=== PATIENT | female | born 1955 | race Caucasian/White ===

== ENCOUNTER 2018-09-28 15:24 | Inpatient (IN) ==
[2018-09-28] MEDS ORDERED: SODIUM CHLORIDE 0.9% 1000ML 1,000 ML IV ONE ×2 (15:58→18:17)
--- NOTE | 2018-09-28 16:29 | XRay Report ---
XR chest 1V portable CLINICAL HISTORY: 63 years-old Female presenting with fever/chills. TECHNIQUE: Portable semiupright AP view of the chest was obtained. COMPARISON: 10/23/2014. FINDINGS: Cardiac silhouette mildly enlarged with pulmonary vascular prominence. Prominence of pulmonary lung m arkings at the lung bases, most likely related to vascular prominence. No focal opacity. No pleural e ffusion or pneumothorax. Degenerative changes of the right glenohumeral joint. Upper abdomen normal. IMPRESSION: 1. Cardiomegaly with volume overload. No convincing focal infiltrate to suggest pneumonia. Prominenc e of lung markings at the lung bases, most likely vascular in etiology. Electronically signed by: Gustavo Chavez M.D. 09/28/2018 4:28 PM
--- NOTE | 2018-09-28 16:30 | XRay Report ---
XR tibia fibula RT 2V CLINICAL HISTORY: 63 years-old Female presenting with leg infection. TECHNIQUE: Frontal and lateral views of the right lower leg were obtained. COMPARISON: Correlation made to plain radiographs of the right ankle from 2014. FINDINGS: Diffuse subcutaneous edema with skin thickening. Osteopenia. Allowing for osteopenia, no focal osseou s erosion or periosteal reaction. Knee joint and ankle mortise grossly congruent. No acute fracture o r malalignment. Prominent enthesophyte at the insertion of the Achilles tendon. Os trigonum noted. No soft tissue emphysema. IMPRESSION: 1. Diffuse subcutaneous edema with skin thickening. Correlate clinically for cellulitis. Allowing fo r osteopenia, no convincing radiographic evidence of osteomyelitis. Electronically signed by: Gustavo Chavez M.D. 09/28/2018 4:29 PM
--- NOTE | 2018-09-28 16:42 | XRay Report ---
XR foot RT min 3V routine CLINICAL HISTORY: 63 years-old Female presenting with leg infection. TECHNIQUE: Frontal, oblique, and lateral views of the right foot were obtained. COMPARISON: 04/17/2014. FINDINGS: Osteopenia. Irregularity of the soft tissues along the medial aspect of the first toe may suggest lac eration or ulceration. No subjacent osseous erosion. Chronic cortical deformity at the medial aspect of the neck of the second metatarsal, unchanged from prior. Osseous fragmentation of the medial and d orsal aspects of the navicular. Prominent enthesophytes at the insertion of the Achilles tendon and o rigin of the plantar fascia. Allowing for osteopenia, no acute fracture or malalignment. Diffuse skin thickening and subcutaneous edema throughout the foot and ankle. IMPRESSION: 1. Osseous fragmentation at the medial and dorsal aspects of the navicular. This may represent small chip or avulsion fractures versus degenerative change. Correlate with point tenderness. 2. Nonspecific diffuse subcutaneous edema and skin thickening. Correlate clinically for sialitis. Th is may represent edema or venous stasis. 3. Possible laceration or ulceration at the medial aspect of the right first toe. No subjacent osseo us abnormality. 4. Allowing for osteopenia, no osseous erosion a periosteal reaction to suggest osteomyelitis. Electronically signed by: Gustavo Chavez M.D. 09/28/2018 4:41 PM
[2018-09-28 16:46] LABS: Basophils # (auto) 0.03 K/uL (0-0.2); Basophils % (auto) 0.2 %; Eosinophils # (auto) 0.05 K/uL (0-0.5); Eosinophils % (auto) 0.3 %; Hematocrit (blood only) 36.2 % (37-47); Hemoglobin 11.7 g/dL (12.0-16.0); Immature Granulocytes # (auto) 0.07 K/uL (0.00-0.02); Immature Granulocytes % (auto) 0.4 %; Lymphocytes # (auto) 1.51 K/uL (1.2-3.4); Lymphocytes % (auto) 9.2 %; Mean Corpuscular Hgb Conc 32.3 g/dL (32-36); Mean Corpuscular Volume 94.8 fL (80-100); Mean Platelet Volume 10.5 fL (7.4-10.4); Monocytes # (auto) 0.88 K/uL (0.11-0.59); Monocytes % (auto) 5.4 %; Neutrophils % (auto) 84.5 %; Platelet Count 332 K/uL (130-400); RDW Coefficient of Variation 15.9 % (11.5-14.5); RDW Standard Deviation 54.7 fL (36.4-46.3); Red Blood Count 3.82 M/uL (4.2-5.4); White Blood Count 16.34 K/uL (4.8-10.8)
[2018-09-28] MEDS ORDERED: cefTRIAXone SODIUM 1,000 MG/50 ML BAG IV STA (16:48)
[2018-09-28 16:55] LABS: INR 1.9 (0.9-1.1); Prothrombin Time 18.7 Seconds (9.0-12.0)
[2018-09-28 17:04] LABS: Alanine Aminotransferase 30 U/L (12-78); Aspartate Aminotransferase 35 U/L (15-37); BUN Creatinine Ratio 27.5 (10-20); Blood Urea Nitrogen 58 mg/dl (7-18); Calcium 9.2 mg/dl (8.5-10.1); Carbon Dioxide 22 mmol/L (21-32); Chloride 98 mmol/L (98-107); Creatinine Clr Calc Pharmacy 40.3 ml/min; Est GFR (African American) 28.2; Est GFR (Non-African American) 24.3; Glucose 195 mg/dl (70-99); Magnesium 2.8 mg/dl (1.8-2.4); Potassium 4.5 mmol/L (3.5-5.1); Sodium 132 mmol/L (136-145)
[2018-09-28 17:09] LABS: Albumin Globulin Ratio 0.6 (0.9-2); Alkaline Phosphatase 71 U/L (45-117); Bilirubin,Total 0.3 mg/dl (0.1-1); Globulin 4.7 gm/dl (2.5-4.0); Total Protein 7.7 gm/dl (6.4-8.2); Troponin I < 0.015 ng/ml (0-0.045)
[2018-09-28] MEDS ORDERED: PIPERACILL/TAZOBAC CONSULT ACTIVE PRN (18:19)
[2018-09-28] MEDS ORDERED: SODIUM CHLORIDE 0.9% 500 ML IV ONE (18:30)
--- NOTE | 2018-09-28 18:37 | History & Physical Report ---
Date of Service September 28, 2018 Assessment & Plan (1) Cellulitis of right lower extremity: This is a 63-year-old white female who has a significant past medical history of morbid obesity, chronic atrial fibrillation, T2 DM, HTN, HLD, diabetic neuropathy, COPD, NAVI noncompliant with CPAP, hypothyroidism, gout, GERD, depression who presents to [facility] secondary to right lower extremity redness, swelling, pain times 2 weeks. Patient failed outpatient course of Bactrim DS times 10 days. In ED patient was noted to have leukocytosis at 16.34, lactic acid 1.15, sodium 132, potassium 4.5, BUN 50, creatinine 2.11. Right lower extremity x-ray significant for subcutaneous edema consistent with cellulitis. Further in ED she was noted to be slight hypotensive with tachycardia. Given 1 L fluid bolus along with IV 1 g Rocephin. Patient meets SIRS criteria with HR 106, WBC 16.34k on admission Lactic Acid < 2.0 Received 1L IVF along with 1g IV rocephin Source: RLE Cellulitis -admit to med/surg telemetry -Initiate IV zosyn, dosed per pharmacy -continue IVF 80cc/hr -check MRSA swab, but unlikely given no improvement with 10 day course of bactrim -wound care consult (2) Acute worsening of stage 3 chronic kidney disease: -baseline Cr 1.3 -Bun 58/Cr 2.1 today, most likely in setting of pre renal hypovolemia, infection , recent bactrim use -Given 1L IVF in ED, will give additional bolus 1L -Then IVF NS 80cc/hr -repeat bmp in a.m. and check UA with micros -if no improvement consider renal U/S and nephro consult (3) Atrial fibrillation: -slight RVR in ED, improved with IVF -continue metoprolol bid, hold diltiazem until BP improves -continue pradaxa for thrombotic control, however renal dose to 75mg bid (4) T2DM (type 2 diabetes mellitus): -A1C 7.8 -outpatient regimen includes jardiance + Lantus 70units at HS and humalog 35 units with breakfast, 15 units lunch and 30 with supper -while inpatient hold orals and reduce lantus to 25units bid with tight novolog scale, adjust accordingly -spot check at 2am (5) HTN (hypertension): -blood pressure on low side on arrival -hold lasix, valsartan/HCTZ, diltiazem until BP improves -hold valsartan/hctz, lasix until dalton improves -continue metoprolol with strict parameters (6) HLD (hyperlipidemia): -continue statin, gemfibrozil (7) Hypothyroid: -continue levothyroxine (8) COPD (chronic obstructive pulmonary disease): -no acute exacerbation -continue combivent, advair (9) Gout: -continue allopurinol (10) NAVI (obstructive sleep apnea): -noncompliant with CPAP at (11) Morbid obesity: -encourage dietary modifications -heart healthy, diabetic diet (12) DVT prophylaxis: -continue pradaxa, however renally dose to 75mg bid Disposition: To be determined Follow up: with PCP Dr. Vazquez upon discharge as well as continued close follow up with Podiatry Patient seen in collaboration with Dr. Hoffmann, please see addendum History of Present Illness Chief Complaint: RLE redness, swelling pain x 2 weeks. Primary Care Provider: Mohsen Vazquez This is a 63-year-old white female who has a significant past medical history of morbid obesity, chronic atrial fibrillation, T2 DM, HTN, HLD, diabetic neuropathy, COPD, NAVI noncompliant with CPAP, hypothyroidism, gout, GERD, depression who presents to [facility] secondary to right lower extremity redness, swelling, pain times 2 weeks. On 09/15 patient initially presented to outpatient clinic, diagnosed with right lower extremity cellulitis and prescribed Bactrim DS twice daily times 10 days. She completed full course without relief. Redness initially started on right foot and has now extended up toward right knee. Further she has been experiencing chills, poor appetite for the past 2-3 days, pain with difficulty ambulating. She denies documented fever, sweats, lightheadedness, dizziness, chest pain, palpitations, shortness of breath, nausea, vomiting, diarrhea or abdominal pain. She notes decreased urination secondary to poor p.o. intake but otherwise denies dysuria, hematuria or increased urgency. She does have chronic left great and third toe callus/wounds when she follows with [facility] podiatry and is due for biopsy to left great toe in 2 weeks. Further she has chronic purulent productive cough secondary to COPD. Allergies Allergy/AdvReac Type Severity Reaction Status Date / Time GIN Inhibitors Allergy Unknown UNK Verified 09/28/18 16:24 cat dander Allergy Unknown UNK Verified 09/28/18 16:24 codeine Allergy Unknown "CODEINE Verified 09/28/18 16:24 DERIVATIVES" hydrocodone Allergy Unknown unknown Unverified 09/28/18 16:24 meperidine Allergy Unknown _ Verified 09/28/18 16:24 morphine Allergy Unknown "MORPHINE Verified 09/28/18 16:24 DERIVATIVES", MORPHINE IS OK pioglitazone Allergy Unknown UNK Verified 09/28/18 16:24 nickel AdvReac Rash Verified 09/28/18 18:39 Cockroach Allergy Unknown UNK Uncoded 09/28/18 16:24 Dust Allergy Unknown UNK Uncoded 09/28/18 16:24 Unclassified Drugs Allergy Unknown "ALLERGIC Uncoded 09/28/18 16:24 TO TREES" Home Medications Home Medications Medication Instructions Recorded Confirmed Type allopurinol 100 mg PO BID 09/28/18 09/28/18 History aspirin [Aspirin Low Dose] 81 mg PO DAILY 09/28/18 09/28/18 History atorvastatin 40 mg PO DAILY 09/28/18 09/28/18 History benzonatate 100 mg PO TID PRN 09/28/18 09/28/18 History dabigatran etexilate [Pradaxa] 150 mg PO BID 09/28/18 09/28/18 History diltiazem HCl 360 mg PO DAILY 09/28/18 09/28/18 History empagliflozin 25 mg PO DAILY 09/28/18 09/28/18 History fluticasone-salmeterol [Advair 1 inh INHALATION Q12H 09/28/18 09/28/18 History Diskus] furosemide 40 mg PO DAILY 09/28/18 09/28/18 History gabapentin 600 mg PO BID 09/28/18 09/28/18 History gemfibrozil 600 mg PO BID 09/28/18 09/28/18 History insulin glargine [Lantus Solostar 70 unit SUBCUT DAILY 09/28/18 09/28/18 History U-100 Insulin] insulin lispro [Humalog KwikPen 15 unit SUBCUT DAILY 09/28/18 09/28/18 History Insulin] insulin lispro [Humalog KwikPen 30 unit SUBCUT QPM 09/28/18 09/28/18 History Insulin] insulin lispro [Humalog KwikPen 35 unit SUBCUT QAM 09/28/18 09/28/18 History Insulin] ipratropium-albuterol 1 puff INHALATION QID 09/28/18 09/28/18 History ipratropium-albuterol [Combivent 1 puff INHALATION DAILY 09/28/18 09/28/18 History Respimat] levothyroxine 112 mcg PO DAILY 09/28/18 09/28/18 History metoprolol tartrate 25 mg PO BID 09/28/18 09/28/18 History mometasone 2 spray INTRANASAL DAILY 09/28/18 09/28/18 History silver sulfadiazine 1 applic TOPICAL DAILY 09/28/18 09/28/18 History valsartan-hydrochlorothiazide 1 tab PO DAILY 09/28/18 09/28/18 History Past Med/Surg History Medical History T2DM (type 2 diabetes mellitus) HTN (hypertension) HLD (hyperlipidemia) COPD (chronic obstructive pulmonary disease) NAVI (obstructive sleep apnea) Diabetic neuropathy CKD (chronic kidney disease) stage 3, GFR 30-59 ml/min GERD (gastroesophageal reflux disease) Depression Hypothyroid Gout Morbid obesity Atrial fibrillation (Chronic) Atrial fibrillation with rapid ventricular response (Resolved 07/14/14) Cellulitis (Resolved) Surgical History History of cholecystectomy History of hernia repair Family History Father Heart attack CAD (coronary artery disease) Mother Complication of surgery Other No significant family history T2DM (type 2 diabetes mellitus) Social History marital status: Current Living Situation: Family Current Living Situation Comment: Lives at home with daugther, son in law and grandchildren Other Information That Helps Us Care for You: No Feels Safe at Home: Yes Smoking Status: Former smoker Years Smoked: 1 Hx Alcohol Use: No Hx Substance Use: No Beliefs That Will Affect Care: None Preferred Language: Trinidadian Communication Ability: Effective Review of Systems All systems reviewed & are unremarkable except as noted in HPI & below Physical Exam 2 Vital Signs (Past 24 Hours): Last Vital Signs Temp 36.8 C 09/28/18 15:36 Pulse 98 H 09/28/18 17:24 Resp 20 09/28/18 17:24 BP 99/66 L 09/28/18 17:24 Pulse Ox 95 09/28/18 17:24 Physical Exam: Gen: Morbidly obese, female, sitting up in bed, pleasant, conversing easily Head: Normocephalic, Atraumatic Eyes: Sclera normal, no conjunctival injection, PERRLA, EOMI ENT: Gross hearing intact, normal pharynx, mucous membranes dry Neck: supple, no adenopathy, No JVD, no bruit, Resp: Clear to auscultation b/l, no wheeze, rales, rhonchi. Normal insp/exp effort, no accessory muscle use CV: irregular rate, irregular rhythm, no murmur, rub, gallop, or ectopy Abd: Central obesity, distended abdomen secondary to obesity, striae, firm, +BS x 4, nontender, Musculoskeletal: moves extremities active rom x 4, decreased ROM to b/l lower ext given obesity, cellulitis good adoption specialist strength Extremities: Obese lower extremities, no mellisa edema, RLE with circumferential erythema extending from foot proximally to below right knee, warm to touch, blanching with right great toe open callus. Right medial malleolar draining wound with spongy wound bed. Left great toe and third toe callus with wound associated. Skin: warm, moist, no rash, negative turgor, cap refill < 2sec Neuro: Alert and oriented x 3, speech normal, good mood/affect, cran nerve 2-12 intact grossly : deferred Results & Data Laboratory Results Short CBC 09/28/18 Range/Units 16:31 WBC 16.34 H (4.8-10.8) K/uL Hgb 11.7 L (12.0-16.0) g/dL Hct 36.2 L (37-47) % Plt Count 332 (130-400) K/uL BMP 09/28/18 16:31 Sodium 132 L Potassium 4.5 Chloride 98 Carbon Dioxide 22 BUN 58 H Creatinine 2.11 H Glucose 195 H Calcium 9.2 Cardiac Enzymes 09/28/18 Range/Units 16:31 Troponin I < 0.015 (0-0.045) ng/ml Liver Function 12/27/18 Range/Units 16:31 Total Bilirubin 0.3 (0.1-1) mg/dl AST 35 (15-37) U/L ALT 30 (12-78) U/L Alkaline Phosphatase 71 (45-117) U/L Albumin 3.0 L (3.4-5.0) gm/dl Diagnostic Findings Tibia/Fibula Xray: IMPRESSION: 1. Diffuse subcutaneous edema with skin thickening. Correlate clinically for cellulitis. Allowing for osteopenia, no convincing radiographic evidence of osteomyelitis. Foot Xray: IMPRESSION: 1. Osseous fragmentation at the medial and dorsal aspects of the navicular. This may represent small chip or avulsion fractures versus degenerative change. Correlate with point tenderness. 2. Nonspecific diffuse subcutaneous edema and skin thickening. Correlate clinically for sialitis. This may represent edema or venous stasis. 3. Possible laceration or ulceration at the medial aspect of the right first toe. No subjacent osseous abnormality. 4. Allowing for osteopenia, no osseous erosion a periosteal reaction to suggest osteomyelitis. CXR: IMPRESSION: 1. Cardiomegaly with volume overload. No convincing focal infiltrate to suggest pneumonia. Prominence of lung markings at the lung bases, most likely vascular in etiology. 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 Will upgrade antibiotics to Zosyn. Will give IV fluids. Patient meets SIRs criteria but not toxic in appearance despite elevated WBC of 16 K. On exam awake and alert, no distress Lungs: breathing on room air, lung sounds are clear heart: irregular rhythm, rate is controlled at time of my exam abdomen: truncal obesity, nontender, positive bowel sounds; Patient has BMI of 57.5 extremities: erythema of right lower extremity from below knee to ankle other medical management of health issues as above _ (1) Gout Chronicity: unspecified Gout etiology: unspecified cause Gout site: unspecified site Qualified Code(s): M10.9 - Gout, unspecified (2) T2DM (type 2 diabetes mellitus) Diabetes mellitus complication detail: with other skin complication Diabetes mellitus complication status: with skin complications Diabetes mellitus intermodal truck driver insulin use: with custodial use Qualified Code(s): E11.628 - Type 2 diabetes mellitus with other skin complications; Z79.4 - exterminator (current) use of insulin (3) Atrial fibrillation Atrial fibrillation type: chronic Qualified Code(s): I48.2 - Chronic atrial fibrillation (4) HLD (hyperlipidemia) Hyperlipidemia type: mixed hyperlipidemia Qualified Code(s): E78.2 - Mixed hyperlipidemia (5) Hypothyroid Hypothyroidism type: unspecified Qualified Code(s): E03.9 - Hypothyroidism, unspecified (6) COPD (chronic obstructive pulmonary disease) COPD type: unspecified COPD Qualified Code(s): J44.9 - Chronic obstructive pulmonary disease, unspecified (7) HTN (hypertension) Hypertension type: essential hypertension Qualified Code(s): I10 - Essential (primary) hypertension
[2018-09-28] MEDS ORDERED: GLUCOSE 10 TABS/TUBE PO PRN (20:00)
[2018-09-28] MEDS ORDERED: ONDANSETRON INJ 2 MG/ML 2 ML VIAL IV PRN (20:00)
[2018-09-28] MEDS ORDERED: POLYETHYLENE (MIRALAX) 17 GM PACK PO PRN (20:00)
[2018-09-28] MEDS ORDERED: DEXTROSE 50% 50 ML SYRINGE IV PRN (20:00)
[2018-09-28] MEDS ORDERED: GLUCOSE 40% GEL 15 GM TUBE PO PRN (20:00)
[2018-09-28] MEDS ORDERED: CARBOHYDRATES FOR HYPOGLYCEMIA PO PRN (20:00)
[2018-09-28] MEDS ORDERED: GLUCAGON FOR INJ 1 MG VIAL SQ PRN (20:00)
[2018-09-28] MEDS ORDERED: PIPERACILLIN/TAZOBACTAM 4.5 GM in DEXTROSE 5% 100 ML IV ONE (20:45)
[2018-09-28] MEDS: INSULIN ASPART 100 UNITS/ML 3 ML PEN SC SCH (21:28)
[2018-09-28] MEDS: DABIGATRAN ETEXILATE 75 MG CAP PO SCH (21:28)
[2018-09-28] MEDS: GEMFIBROZIL 600 MG TAB PO SCH (21:28)
[2018-09-28] MEDS: GABAPENTIN 600 MG TAB PO SCH (21:28)
[2018-09-28] MEDS: METOPROLOL TARTRATE 25 MG TAB PO SCH (21:28)
[2018-09-28] MEDS: FLUTICASONE/SALMETEROL 250/50 (ADVAIR) 14 PUFF/1 INHALER INH SCH (21:30)
[2018-09-28] MEDS: SODIUM CHLORIDE 0.9% 1000ML 1,000 ML IV SCH (21:30)
[2018-09-28] MEDS: IPRATROPIUM BROMIDE/ALBUTEROL respimat INH INH SCH (21:30)
[2018-09-28] MEDS: INSULIN GLARGINE SOLOSTAR 100 UNITS/ML 3 ML PEN SC SCH (21:31)
[2018-09-28] MEDS: ALLOPURINOL 100 MG TAB PO SCH (22:05)
[2018-09-29] MEDS: ACETAMINOPHEN 325 MG TAB PO PRN ×2 (00:22→18:12)
[2018-09-29 01:05] LABS: Appearance Urine Clear (Clear); Bilirubin Urine Negative (Negative); Color Urine Yellow; Glucose Urine UA 3+ (Negative); Ketones Urine Negative (Negative); Leukocyte Esterase Urine Negative (Negative); Nitrite Urine Negative (Negative); Protein Urine Negative (Negative); Specific Gravity Urine 1.017 (1.000-1.030); Urobilinogen Urine Negative (Negative)
[2018-09-29] MEDS: PIPERACILLIN/TAZOBACTAM 4.5 GM in DEXTROSE 5% 100 ML IV SCH ×3 (03:28→17:55)
[2018-09-29] MEDS: LEVOTHYROXINE SODIUM 112 MCG TABLET PO SCH (05:57)
[2018-09-29 06:54] LABS: Basophils # (auto) 0.03 K/uL (0-0.2); Basophils % (auto) 0.3 %; Eosinophils # (auto) 0.18 K/uL (0-0.5); Eosinophils % (auto) 1.9 %; Hematocrit (blood only) 34.6 % (37-47); Immature Granulocytes # (auto) 0.03 K/uL (0.00-0.02); Immature Granulocytes % (auto) 0.3 %; Lymphocytes # (auto) 2.28 K/uL (1.2-3.4); Lymphocytes % (auto) 23.7 %; Mean Corpuscular Hgb Conc 31.8 g/dL (32-36); Mean Corpuscular Volume 95.3 fL (80-100); Monocytes # (auto) 0.76 K/uL (0.11-0.59); Monocytes % (auto) 7.9 %; Neutrophils # (auto) 6.33 K/uL (1.4-6.5); Neutrophils % (auto) 65.9 %; Platelet Count 296 K/uL (130-400); RDW Coefficient of Variation 15.6 % (11.5-14.5); RDW Standard Deviation 54.5 fL (36.4-46.3); Red Blood Count 3.63 M/uL (4.2-5.4); White Blood Count 9.61 K/uL (4.8-10.8)
[2018-09-29 07:34] LABS: BUN Creatinine Ratio 31.8 (10-20); Calcium 8.8 mg/dl (8.5-10.1); Est GFR (African American) 33.9; Est GFR (Non-African American) 29.2; Magnesium 2.7 mg/dl (1.8-2.4); Potassium 3.8 mmol/L (3.5-5.1)
[2018-09-29] MEDS: INSULIN ASPART 100 UNITS/ML 3 ML PEN SC SCH ×4 (09:17→21:19)
[2018-09-29] MEDS: FLUTICASONE/SALMETEROL 250/50 (ADVAIR) 14 PUFF/1 INHALER INH SCH ×2 (09:18→21:08)
[2018-09-29] MEDS: SODIUM CHLORIDE 0.9% 1000ML 1,000 ML IV SCH (09:18)
[2018-09-29] MEDS: IPRATROPIUM BROMIDE/ALBUTEROL respimat INH INH SCH ×4 (09:18→21:08)
[2018-09-29] MEDS: INSULIN GLARGINE SOLOSTAR 100 UNITS/ML 3 ML PEN SC SCH ×2 (09:18→21:20)
[2018-09-29] MEDS: ATORVASTATIN 40 MG TAB PO SCH (09:19)
[2018-09-29] MEDS: ALLOPURINOL 100 MG TAB PO SCH ×2 (09:19→21:13)
[2018-09-29] MEDS: GABAPENTIN 600 MG TAB PO SCH ×2 (09:19→21:10)
[2018-09-29] MEDS: METOPROLOL TARTRATE 25 MG TAB PO SCH ×2 (09:19→21:10)
[2018-09-29] MEDS: ASPIRIN 81 MG ECTAB PO SCH (09:19)
[2018-09-29] MEDS: GEMFIBROZIL 600 MG TAB PO SCH ×2 (09:20→21:11)
[2018-09-29] MEDS: DABIGATRAN ETEXILATE 75 MG CAP PO SCH ×2 (09:20→21:11)
--- NOTE | 2018-09-29 10:15 | Ultrasound Report ---
US venous doppler LE CLINICAL HISTORY: 63 years-old Female presenting with lower leg edema, rule out DVTs. TECHNIQUE: Real-time grayscale and color and spectral Doppler ultrasound imaging of the veins of the bilateral lower extremities was performed. Compression and augmentation were also utilized. COMPARISON: None. FINDINGS: RIGHT: Common femoral vein: Patent. Greater saphenous vein (superficial): Patent. Deep femoral vein: Patent. Femoral vein: Patent. Popliteal vein: Patent. Calf veins: Patent. LEFT: Common femoral vein: Patent. Greater saphenous vein (superficial): Patent. Deep femoral vein: Patent. Femoral vein: Patent. Popliteal vein: Patent. Calf veins: Patent. Other: Subcutaneous edema with dilated lymphatics in the lower legs bilaterally. IMPRESSION: 1. No evidence of deep venous thrombosis. 2. Subcutaneous edema. Electronically signed by: Gustavo Chavez M.D. 09/29/2018 10:13 AM
[2018-09-29] MEDS: SILVER SULFADIAZINE 1% CR 50 GM JAR TOP SCH (10:29)
--- NOTE | 2018-09-29 19:16 | Hospitalist Progress Note ---
Date of Service September 29, 2018 Assessment & Plan (1) Cellulitis of right lower extremity: This is a 63-year-old white female who has a significant past medical history of morbid obesity, chronic atrial fibrillation, T2 DM, HTN, HLD, diabetic neuropathy, COPD, NAVI noncompliant with CPAP, hypothyroidism, gout, GERD, depression who presents to [facility] secondary to right lower extremity redness, swelling, pain times 2 weeks. Patient failed outpatient course of Bactrim DS times 10 days. In ED patient was noted to have leukocytosis at 16.34, lactic acid 1.15, sodium 132, potassium 4.5, BUN 50, creatinine 2.11. Right lower extremity x-ray significant for subcutaneous edema consistent with cellulitis. Further in ED she was noted to be slight hypotensive with tachycardia. Given 1 L fluid bolus along with IV 1 g Rocephin. Patient meets SIRS criteria with HR 106, WBC 16.34k on admission and with right lower extremity cellulitis Lactic Acid < 2.0 Received 1L IVF along with 1g IV rocephin on admission, continuing to treat instead with Zosyn, await admission blood cultures wound care (2) Acute worsening of stage 3 chronic kidney disease: -baseline Cr 1.3 -Bun 58/Cr 2.1 on admission -creatinine downtrending to 1.8, continue IV fluids as 80 cc/hr (3) Atrial fibrillation: -slight RVR in ED, improved with IVF on admission -continue metoprolol bid -pradaxa for thrombotic control - hold diltiazem (4) T2DM (type 2 diabetes mellitus): -A1C 7.8 -outpatient regimen includes jardiance + Lantus 70units at HS and humalog 35 units with breakfast, 15 units lunch and 30 with supper -while inpatient hold orals and reduce lantus to 25units bid with tight novolog scale, adjust accordingly (5) HTN (hypertension): -blood pressure on low side on admission day -blood pressure remains controlled off home dose lasix, valsartan/HCTZ, diltiazem until BP improves -continue metoprolol with strict parameters (6) HLD (hyperlipidemia): -continue statin, gemfibrozil (7) Hypothyroid: -continue levothyroxine (8) COPD (chronic obstructive pulmonary disease): -no acute exacerbation -continue combivent, advair (9) Gout: -continue allopurinol (10) NAVI (obstructive sleep apnea): -noncompliant with CPAP at HS (11) Morbid obesity: -Obesity with BMI of 57.5 -heart healthy, diabetic diet -PT/OT (12) DVT prophylaxis: -continue pradaxa as home dose 150 mg BID Subjective Patient seen and examined earlier today. Has been afebrile. denies leg pains. No DVTs on lower extremity ultrasound in regards to the leg swelling. leg leg cellulitis remains unchanged as yesterday on admission denies chest pain or shortness of breath. no abdominal pain Physical Exam 2 Vital Signs (Past 24 Hours): Last Vital Signs Temp 37.2 C 09/29/18 14:33 Pulse 88 09/29/18 14:33 Resp 20 09/29/18 14:33 BP 113/62 09/29/18 14:33 Pulse Ox 97 09/29/18 14:33 Physical Exam: Gen: Morbidly obese, female, sitting up in bed, pleasant, conversing easily Head: Normocephalic, Atraumatic Eyes: Sclera normal, no conjunctival injection, PERRLA, EOMI ENT: Gross hearing intact, normal pharynx, mucous membranes dry Neck: supple, no adenopathy, No JVD, no bruit, Resp: Clear to auscultation b/l, no wheeze, rales, rhonchi. Normal insp/exp effort, no accessory muscle use CV: irregular rate, irregular rhythm, no murmur, rub, gallop, or ectopy Abd: Central obesity, distended abdomen secondary to obesity, striae, firm, +BS x 4, nontender, Musculoskeletal: moves extremities active rom x 4, decreased ROM to b/l lower ext given obesity, cellulitis good green marketing specialist strength Extremities: Obese lower extremities, no mellisa edema, RLE with circumferential erythema extending from foot proximally to below right knee, warm to touch, blanching with right great toe open callus. Right medial malleolar draining wound with spongy wound bed. Left great toe and third toe callus with wound associated. 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 mellitus cafe associate insulin use: with cafe associate use Diabetes mellitus complication status: with skin complications Diabetes mellitus complication detail: with other skin complication Diabetic retinopathy severity : Proliferative retinopathy type: Diabetes mellitus macular edema: Laterality: Chronic kidney disease stage: Qualified Code(s): E11.628 - Type 2 diabetes mellitus with other skin complications; Z79.4 - FDC (current) use of insulin (3) HTN (hypertension) Hypertension type: essential hypertension Qualified Code(s): I10 - Essential (primary) hypertension (4) HLD (hyperlipidemia) Hyperlipidemia type: mixed hyperlipidemia Qualified Code(s): E78.2 - Mixed hyperlipidemia (5) Hypothyroid Hypothyroidism type: unspecified Qualified Code(s): E03.9 - Hypothyroidism, unspecified (6) COPD (chronic obstructive pulmonary disease) COPD type: unspecified COPD Chronic bronchitis type: Emphysema type: Qualified Code(s): J44.9 - Chronic obstructive pulmonary disease, unspecified (7) Gout Gout site: unspecified site Gout etiology: unspecified cause Encounter type : Chronicity: unspecified Laterality: Presence of tophus: Qualified Code( s): M10.9 - Gout, unspecified
[2018-09-29] MEDS ORDERED: SODIUM CHLORIDE 0.9% 1000ML 1,000 ML IV SCH (19:30)
[2018-09-30] MEDS: PIPERACILLIN/TAZOBACTAM 4.5 GM in DEXTROSE 5% 100 ML IV SCH ×3 (01:52→18:34)
[2018-09-30] MEDS: ACETAMINOPHEN 325 MG TAB PO PRN ×2 (05:25→18:45)
[2018-09-30] MEDS: LEVOTHYROXINE SODIUM 112 MCG TABLET PO SCH (05:25)
[2018-09-30 06:28] LABS: Basophils # (auto) 0.05 K/uL (0-0.2); Basophils % (auto) 0.6 %; Eosinophils # (auto) 0.35 K/uL (0-0.5); Eosinophils % (auto) 4.1 %; Hematocrit (blood only) 35.5 % (37-47); Hemoglobin 11.5 g/dL (12.0-16.0); Immature Granulocytes # (auto) 0.02 K/uL (0.00-0.02); Immature Granulocytes % (auto) 0.2 %; Lymphocytes # (auto) 2.37 K/uL (1.2-3.4); Lymphocytes % (auto) 27.7 %; Mean Corpuscular Hgb Conc 32.4 g/dL (32-36); Mean Corpuscular Volume 94.9 fL (80-100); Monocytes # (auto) 0.82 K/uL (0.11-0.59); Monocytes % (auto) 9.6 %; Neutrophils # (auto) 4.96 K/uL (1.4-6.5); Neutrophils % (auto) 57.8 %; Platelet Count 321 K/uL (130-400); RDW Coefficient of Variation 15.4 % (11.5-14.5); RDW Standard Deviation 52.8 fL (36.4-46.3); Red Blood Count 3.74 M/uL (4.2-5.4); White Blood Count 8.57 K/uL (4.8-10.8)
[2018-09-30 06:47] LABS: INR 1.3 (0.9-1.1); Prothrombin Time 12.9 Seconds (9.0-12.0)
[2018-09-30 06:51] LABS: Partial Thromboplastin Time 52.3 Seconds (21.0-31.0)
[2018-09-30 07:13] LABS: Albumin Level 2.8 gm/dl (3.4-5.0); BUN Creatinine Ratio 31.3 (10-20); Calcium 8.5 mg/dl (8.5-10.1); Creatinine Clr Calc Pharmacy 62.1 ml/min; Est GFR (African American) 47.5; Est GFR (Non-African American) 40.9
[2018-09-30 07:16] LABS: Albumin Globulin Ratio 0.6 (0.9-2); Bilirubin,Total 0.4 mg/dl (0.1-1); Globulin 4.8 gm/dl (2.5-4.0); Total Protein 7.6 gm/dl (6.4-8.2)
[2018-09-30] MEDS: INSULIN ASPART 100 UNITS/ML 3 ML PEN SC SCH ×4 (08:07→21:55)
[2018-09-30] MEDS: INSULIN GLARGINE SOLOSTAR 100 UNITS/ML 3 ML PEN SC SCH ×2 (08:08→21:56)
[2018-09-30] MEDS: ALLOPURINOL 100 MG TAB PO SCH ×2 (08:08→21:54)
[2018-09-30] MEDS: DABIGATRAN ETEXILATE 75 MG CAP PO SCH ×2 (08:08→21:53)
[2018-09-30] MEDS: FLUTICASONE/SALMETEROL 250/50 (ADVAIR) 14 PUFF/1 INHALER INH SCH ×2 (08:08→21:49)
[2018-09-30] MEDS: IPRATROPIUM BROMIDE/ALBUTEROL respimat INH INH SCH ×4 (08:08→21:50)
[2018-09-30] MEDS: ASPIRIN 81 MG ECTAB PO SCH (08:09)
[2018-09-30] MEDS: ATORVASTATIN 40 MG TAB PO SCH (08:09)
[2018-09-30] MEDS: SILVER SULFADIAZINE 1% CR 50 GM JAR TOP SCH (08:09)
[2018-09-30] MEDS: GABAPENTIN 600 MG TAB PO SCH ×2 (08:09→21:54)
[2018-09-30] MEDS: GEMFIBROZIL 600 MG TAB PO SCH ×2 (08:09→21:54)
[2018-09-30] MEDS: METOPROLOL TARTRATE 25 MG TAB PO SCH ×2 (08:09→21:54)
[2018-09-30] MEDS: FUROSEMIDE 40 MG TAB PO SCH (14:10)
--- NOTE | 2018-09-30 15:37 | Hospitalist Progress Note ---
Date of Service September 30, 2018 Assessment & Plan (1) Cellulitis of right lower extremity: HPI This is a 63-year-old white female who has a significant past medical history of morbid obesity, chronic atrial fibrillation, T2 DM, HTN, HLD, diabetic neuropathy, COPD, NAVI noncompliant with CPAP, hypothyroidism, gout, GERD, depression who presents to [facility] secondary to right lower extremity redness, swelling, pain times 2 weeks. Patient failed outpatient course of Bactrim DS times 10 days. In ED patient was noted to have leukocytosis at 16.34, lactic acid 1.15, sodium 132, potassium 4.5, BUN 50, creatinine 2.11. Right lower extremity x-ray significant for subcutaneous edema consistent with cellulitis. Further in ED she was noted to be slight hypotensive with tachycardia. Given 1 L fluid bolus along with IV 1 g Rocephin. Patient meets SIRS criteria with HR 106, WBC 16.34k on admission and with right lower extremity cellulitis; Lactic Acid < 2.0 Right Lower extremity Cellulitis -continuing to treat instead with Zosyn, await admission blood cultures -wound culture sent on 09/30/18 of serosanguinous right ankle drainage -wound care (2) Acute worsening of stage 3 chronic kidney disease: -baseline Cr 1.3; Bun 58/Cr 2.1 on admission -The acute kidney injury resolved -stopped IV fluids and resumed home dose lasix starting 09/30/18 (3) Atrial fibrillation: -slight RVR in ED, improved with IVF on admission -continue metoprolol bid -pradaxa for thrombotic control -heart rate controlled off home dose diltiazem, hold for now as blood pressure is lower side of normal parameters; currently blood pressure is 101/66 (4) T2DM (type 2 diabetes mellitus): -A1C 7.8 -outpatient regimen includes jardiance + Lantus 70units at HS and humalog 35 units with breakfast, 15 units lunch and 30 with supper -while inpatient hold orals and reduce lantus to 25units bid with tight novolog scale, adjust accordingly (5) HTN (hypertension): -blood pressure on low side on admission day -blood pressure remains controlled off valsartan/HCTZ, diltiazem -hold for now off HTN meds as blood pressure is lower side of normal parameters ; currently bp 101/66 -continue metoprolol with strict parameters, resuming furosemide (6) HLD (hyperlipidemia): -continue statin, gemfibrozil (7) Hypothyroid: -continue levothyroxine (8) COPD (chronic obstructive pulmonary disease): -no acute exacerbation -continue combivent, advair (9) Gout: -continue allopurinol (10) NAVI (obstructive sleep apnea): -noncompliant with CPAP at HS (11) Morbid obesity: -Obesity with BMI of 57.5 -heart healthy, diabetic diet -PT/OT (12) DVT prophylaxis: -continue pradaxa as home dose 150 mg BID Subjective Patient seen and examined today at bedside. The right leg erythema appears to be less warm. However the patient is draining serosanguinous fluid around the right ankle requested that nurse send for wound culture Patient denies chest pain or shortness of breath. Denies acute pain of the legs or abdomen. Has been ambulatory. no lightheadedness or headache Physical Exam 2 Vital Signs (Past 24 Hours): Last Vital Signs Temp 36.6 C 09/30/18 15:06 Pulse 94 H 09/30/18 15:06 Resp 18 09/30/18 15:06 BP 101/66 09/30/18 15:06 Pulse Ox 90 09/30/18 15:06 Physical Exam: Gen: Morbidly obese, female, sitting up in bed, pleasant, conversing easily Head: Normocephalic, Atraumatic Eyes: Sclera normal, no conjunctival injection, PERRLA, EOMI ENT: Gross hearing intact, normal pharynx, mucous membranes dry Neck: supple, no adenopathy, No JVD, no bruit, Resp: Clear to auscultation b/l, no wheeze, rales, rhonchi. 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 Left great toe and third toe callus with wound associated. 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 marine terminal insulin use: with laborer marine terminal use Diabetes mellitus complication status: with skin complications Diabetes mellitus complication detail: with other skin complication Diabetic retinopathy severity : Proliferative retinopathy type: Diabetes mellitus macular edema: Laterality: Chronic kidney disease stage: Qualified Code(s): E11.628 - Type 2 diabetes mellitus with other skin complications; Z79.4 - manager intermediate (current) use of insulin (3) HTN (hypertension) Hypertension type: essential hypertension Qualified Code(s): I10 - Essential (primary) hypertension (4) HLD (hyperlipidemia) Hyperlipidemia type: mixed hyperlipidemia Qualified Code(s): E78.2 - Mixed hyperlipidemia (5) Hypothyroid Hypothyroidism type: unspecified Qualified Code(s): E03.9 - Hypothyroidism, unspecified (6) COPD (chronic obstructive pulmonary disease) COPD type: unspecified COPD Chronic bronchitis type: Emphysema type: Qualified Code(s): J44.9 - Chronic obstructive pulmonary disease, unspecified (7) Gout Gout site: unspecified site Gout etiology: unspecified cause Encounter type : Chronicity: unspecified Laterality: Presence of tophus: Qualified Code( s): M10.9 - Gout, unspecified
[2018-10-01] MEDS: PIPERACILLIN/TAZOBACTAM 4.5 GM in DEXTROSE 5% 100 ML IV SCH ×3 (01:50→18:11)
[2018-10-01] MEDS: LEVOTHYROXINE SODIUM 112 MCG TABLET PO SCH (05:51)
[2018-10-01 07:35] LABS: Basophils # (auto) 0.07 K/uL (0-0.2); Basophils % (auto) 0.8 %; Eosinophils # (auto) 0.38 K/uL (0-0.5); Eosinophils % (auto) 4.1 %; Hematocrit (blood only) 37.6 % (37-47); Hemoglobin 11.8 g/dL (12.0-16.0); Immature Granulocytes # (auto) 0.04 K/uL (0.00-0.02); Immature Granulocytes % (auto) 0.4 %; Lymphocytes % (auto) 29.1 %; Mean Corpuscular Hgb Conc 31.4 g/dL (32-36); Mean Corpuscular Volume 95.9 fL (80-100); Monocytes # (auto) 0.73 K/uL (0.11-0.59); Monocytes % (auto) 7.9 %; Neutrophils # (auto) 5.36 K/uL (1.4-6.5); Neutrophils % (auto) 57.7 %; Platelet Count 341 K/uL (130-400); RDW Coefficient of Variation 15.6 % (11.5-14.5); RDW Standard Deviation 54.4 fL (36.4-46.3); Red Blood Count 3.92 M/uL (4.2-5.4); White Blood Count 9.28 K/uL (4.8-10.8)
[2018-10-01] MEDS: INSULIN ASPART 100 UNITS/ML 3 ML PEN SC SCH ×4 (07:55→20:43)
[2018-10-01] MEDS: INSULIN GLARGINE SOLOSTAR 100 UNITS/ML 3 ML PEN SC SCH ×2 (07:56→20:42)
[2018-10-01] MEDS: ALLOPURINOL 100 MG TAB PO SCH ×2 (07:57→20:39)
[2018-10-01] MEDS: IPRATROPIUM BROMIDE/ALBUTEROL respimat INH INH SCH ×4 (07:57→20:31)
[2018-10-01] MEDS: FLUTICASONE/SALMETEROL 250/50 (ADVAIR) 14 PUFF/1 INHALER INH SCH ×2 (07:57→20:31)
[2018-10-01] MEDS: GEMFIBROZIL 600 MG TAB PO SCH ×2 (07:57→20:40)
[2018-10-01] MEDS: DABIGATRAN ETEXILATE 75 MG CAP PO SCH ×2 (07:57→20:38)
[2018-10-01] MEDS: ASPIRIN 81 MG ECTAB PO SCH (07:57)
[2018-10-01] MEDS: SILVER SULFADIAZINE 1% CR 50 GM JAR TOP SCH (07:57)
[2018-10-01] MEDS: METOPROLOL TARTRATE 25 MG TAB PO SCH ×2 (07:58→20:40)
[2018-10-01] MEDS: GABAPENTIN 600 MG TAB PO SCH ×2 (07:58→20:39)
[2018-10-01] MEDS: ATORVASTATIN 40 MG TAB PO SCH (07:58)
[2018-10-01] MEDS: FUROSEMIDE 40 MG TAB PO SCH (07:58)
[2018-10-01 08:12] LABS: BUN Creatinine Ratio 26.7 (10-20); Calcium 9.1 mg/dl (8.5-10.1); Creatinine Clr Calc Pharmacy 66.5 ml/min; Est GFR (African American) 52.5; Est GFR (Non-African American) 45.3; Magnesium 2.1 mg/dl (1.8-2.4); Potassium 4.2 mmol/L (3.5-5.1)
--- NOTE | 2018-10-01 16:00 | Hospitalist Progress Note ---
Date of Service October 01, 2018 Assessment & Plan (1) Cellulitis of right lower extremity: HPI This is a 63-year-old white female who has a significant past medical history of morbid obesity, chronic atrial fibrillation, T2 DM, HTN, HLD, diabetic neuropathy, COPD, NAVI noncompliant with CPAP, hypothyroidism, gout, GERD, depression who presents to [facility] secondary to right lower extremity redness, swelling, pain times 2 weeks. Patient failed outpatient course of Bactrim DS times 10 days. In ED patient was noted to have leukocytosis at 16.34, lactic acid 1.15, sodium 132, potassium 4.5, BUN 50, creatinine 2.11. Right lower extremity x-ray significant for subcutaneous edema consistent with cellulitis. Further in ED she was noted to be slight hypotensive with tachycardia. Given 1 L fluid bolus along with IV 1 g Rocephin. Patient meets SIRS criteria with HR 106, WBC 16.34k on admission and with right lower extremity cellulitis; Lactic Acid < 2.0 Right Lower extremity Cellulitis -has been on Zosyn since 09/28/18, admission blood cultures with no growth to date but patient toi can benefit further from IV antibiotics for now -wound culture sent on 09/30/18 of serosanguinous right ankle drainage with cultures resulting as sheila likely as skin alirio -wound care -send C.difficile test from given antibiotic use -encourage leg elevation (2) Acute worsening of stage 3 chronic kidney disease: -baseline Cr 1.3; Bun 58/Cr 2.1 on admission -The acute kidney injury resolved -stopped IV fluids and resumed home dose lasix starting 09/30/18 -continue daily 40 mg Lasix (3) Atrial fibrillation: -slight RVR in ED, improved with IVF on admission -continue metoprolol bid -pradaxa for thrombotic control -heart rate generally controlled off home dose diltiazem of 360 mg po daily, will resume as 120 mg daily for now (4) T2DM (type 2 diabetes mellitus): -A1C 7.8 -outpatient regimen includes jardiance + Lantus 70units at HS and humalog 35 units with breakfast, 15 units lunch and 30 with supper -while inpatient hold orals and use Lantus to 30 units bid with tight novolog scale, adjust accordingly (5) HTN (hypertension): -blood pressure on low side on admission day -blood pressure generally remains controlled off valsartan/HCTZ or diltiazem -continue metoprolol tartrate 25 mg PO BID, continue furosemide 40 mg daily, resuming diltiazem as lower than home dose -continue to hold valsartan/HCTZ (6) HLD (hyperlipidemia): -continue statin, gemfibrozil (7) Hypothyroid: -continue levothyroxine (8) COPD (chronic obstructive pulmonary disease): -no acute exacerbation -continue combivent, advair (9) Gout: -continue allopurinol (10) NAVI (obstructive sleep apnea): -noncompliant with CPAP at HS (11) Morbid obesity: -Obesity with BMI of 57.5 -heart healthy, diabetic diet -PT/OT (12) DVT prophylaxis: -continue pradaxa as home dose 150 mg BID Subjective Patient seen and examined today at bedside. The right leg erythema appears to be less warm compared to admission. However the patient is still draining serosanguinous fluid around the right ankle the wound culture from right ankle has returned as Sheila which is likely skin alirio contamination Patient denies chest pain or shortness of breath. Denies acute pain of the legs or abdomen. Has been ambulatory. no lightheadedness or headache Vitals generally stable without all of usual home medications Physical Exam 2 Vital Signs (Past 24 Hours): Last Vital Signs Temp 36.6 C 10/01/18 15:50 Pulse 88 10/01/18 15:50 Resp 18 10/01/18 15:50 BP 111/69 10/01/18 15:50 Pulse Ox 94 10/01/18 15:50 Physical Exam: Gen: Morbidly obese, female, sitting up in bed, pleasant, conversing easily Head: Normocephalic, Atraumatic Eyes: Sclera normal, no conjunctival injection, PERRLA, EOMI ENT: Gross hearing intact, normal pharynx, mucous membranes dry Neck: supple, no adenopathy, No JVD, no bruit, Resp: Clear to auscultation b/l, no wheeze, rales, rhonchi. 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 Right medial malleolar draining wound with spongy wound bed. Left great toe and third toe callus with wound associated. Skin: warm, moist, no rash, negative turgor, cap refill < 2sec Neuro: Alert and oriented x 3, speech normal, good mood/affect, cran nerve 2-12 intact grossly _ (1) Gout Chronicity: unspecified Encounter type: Gout etiology: unspecified cause Gout site: unspecified site Laterality: Presence of tophus: Qualified Code( s): M10.9 - Gout, unspecified (2) T2DM (type 2 diabetes mellitus) Chronic kidney disease stage: Diabetes mellitus complication detail: with other skin complication Diabetes mellitus complication status: with skin complications Diabetes mellitus shelter insulin use: with shelter use Diabetes mellitus macular edema: Diabetic retinopathy severity: Laterality: Proliferative retinopathy type: Qualified Code(s): E11.628 - Type 2 diabetes mellitus with other skin complications; Z79.4 - correction (current) use of insulin (3) Atrial fibrillation Atrial fibrillation type: chronic Qualified Code(s): I48.2 - Chronic atrial fibrillation (4) HLD (hyperlipidemia) Hyperlipidemia type: mixed hyperlipidemia Qualified Code(s): E78.2 - Mixed hyperlipidemia (5) Hypothyroid Hypothyroidism type: unspecified Qualified Code(s): E03.9 - Hypothyroidism, unspecified (6) COPD (chronic obstructive pulmonary disease) COPD type: unspecified COPD Chronic bronchitis type: Emphysema type: Qualified Code(s): J44.9 - Chronic obstructive pulmonary disease, unspecified (7) HTN (hypertension) Hypertension type: essential hypertension Qualified Code(s): I10 - Essential (primary) hypertension
[2018-10-01] MEDS: ACETAMINOPHEN 325 MG TAB PO PRN (20:30)
[2018-10-02] MEDS: PIPERACILLIN/TAZOBACTAM 4.5 GM in DEXTROSE 5% 100 ML IV SCH ×3 (02:00→18:05)
[2018-10-02] MEDS: ACETAMINOPHEN 325 MG TAB PO PRN (02:19)
[2018-10-02] MEDS ORDERED: RAPID SEQUENCE INDUCTION BAG ONE (03:46)
[2018-10-02] MEDS: LEVOTHYROXINE SODIUM 112 MCG TABLET PO SCH (05:59)
[2018-10-02 06:02] LABS: Basophils # (auto) 0.08 K/uL (0-0.2); Basophils % (auto) 0.7 %; Eosinophils # (auto) 0.44 K/uL (0-0.5); Hematocrit (blood only) 37.4 % (37-47); Hemoglobin 11.8 g/dL (12.0-16.0); Immature Granulocytes # (auto) 0.07 K/uL (0.00-0.02); Immature Granulocytes % (auto) 0.6 %; Lymphocytes # (auto) 3.47 K/uL (1.2-3.4); Lymphocytes % (auto) 31.9 %; Mean Corpuscular Hgb Conc 31.6 g/dL (32-36); Mean Corpuscular Volume 95.2 fL (80-100); Mean Platelet Volume 9.7 fL (7.4-10.4); Monocytes # (auto) 0.95 K/uL (0.11-0.59); Monocytes % (auto) 8.7 %; Neutrophils # (auto) 5.87 K/uL (1.4-6.5); Neutrophils % (auto) 54.1 %; Platelet Count 328 K/uL (130-400); RDW Coefficient of Variation 15.3 % (11.5-14.5); RDW Standard Deviation 52.8 fL (36.4-46.3); Red Blood Count 3.93 M/uL (4.2-5.4); White Blood Count 10.88 K/uL (4.8-10.8)
[2018-10-02 06:41] LABS: Albumin Level 2.8 gm/dl (3.4-5.0); Calcium 8.9 mg/dl (8.5-10.1); Creatinine Clr Calc Pharmacy 72.9 ml/min; Est GFR (African American) 58.6; Est GFR (Non-African American) 50.6; Potassium 3.7 mmol/L (3.5-5.1)
[2018-10-02 06:44] LABS: Albumin Globulin Ratio 0.6 (0.9-2); Bilirubin,Total 0.4 mg/dl (0.2-1); Globulin 4.4 gm/dl (2.5-4.0); Total Protein 7.2 gm/dl (6.4-8.2)
[2018-10-02] MEDS: IPRATROPIUM BROMIDE/ALBUTEROL respimat INH INH SCH ×4 (09:00→20:43)
[2018-10-02] MEDS: FLUTICASONE/SALMETEROL 250/50 (ADVAIR) 14 PUFF/1 INHALER INH SCH ×2 (09:00→20:43)
[2018-10-02] MEDS: INSULIN ASPART 100 UNITS/ML 3 ML PEN SC SCH ×4 (09:02→20:33)
[2018-10-02] MEDS: GABAPENTIN 600 MG TAB PO SCH ×2 (09:03→20:45)
[2018-10-02] MEDS: DABIGATRAN ETEXILATE 75 MG CAP PO SCH ×2 (09:03→20:44)
[2018-10-02] MEDS: FUROSEMIDE 40 MG TAB PO SCH (09:03)
[2018-10-02] MEDS: ALLOPURINOL 100 MG TAB PO SCH ×2 (09:03→20:45)
[2018-10-02] MEDS: ATORVASTATIN 40 MG TAB PO SCH (09:03)
[2018-10-02] MEDS: GEMFIBROZIL 600 MG TAB PO SCH ×2 (09:03→20:45)
[2018-10-02] MEDS: INSULIN GLARGINE SOLOSTAR 100 UNITS/ML 3 ML PEN SC SCH ×2 (09:04→20:43)
[2018-10-02] MEDS: SILVER SULFADIAZINE 1% CR 50 GM JAR TOP SCH ×2 (09:04→10:32)
[2018-10-02] MEDS: METOPROLOL TARTRATE 25 MG TAB PO SCH ×2 (09:05→20:58)
[2018-10-02] MEDS: ASPIRIN 81 MG ECTAB PO SCH (09:05)
--- NOTE | 2018-10-02 12:42 | Hospitalist Progress Note ---
Date of Service October 02, 2018 Assessment & Plan (1) Cellulitis of right lower extremity: Right lower extremity cellulitis is proved since Zosyn began 09/28. Wound culture grew Winnie albicans with additional skin alirio. Will discuss with ID whether treatment is necessary. Patient reports multiple outpatient regimens of antibiotics that were not effective. Leg elevation was encouraged. Of note, blood cultures were drawn as patient did report some chills despite Zosyn use. Patient will be given scheduled Tylenol to stay ahead of the pain as she reports forgetting to ask for pain meds until it is too late. Additionally, no evidence of DVT on ultrasound this admission. (2) Atrial fibrillation: Rate controlled with metoprolol 25 p.o. twice daily, diltiazem XR are 360 mg was decreased to 120 mg every morning. Telemetry review reveals several spikes to the 130s overnight. We will continue with this dose but if further spikes are noted will increase to home dosage tomorrow morning. Continue anticoagulation with Pradaxa. (3) T2DM (type 2 diabetes mellitus): Glucose at goal, continue Lantus and NovoLog with sliding scale and carb coverage while inpatient. (4) HTN (hypertension): Home valsartan/hydrochlorothiazide 320-25 mg p.o. daily was held on admission in setting of AK I. She continues on Lasix 40 mg p.o. every morning which is also a home medication for her. Blood pressure remains in range. We will continue to hold initial medication. (5) HLD (hyperlipidemia): -continue statin, gemfibrozil (6) Hypothyroid: -continue levothyroxine (7) COPD (chronic obstructive pulmonary disease): -no acute exacerbation -continue combivent, advair (8) NAVI (obstructive sleep apnea): -noncompliant with CPAP at HS (9) Morbid obesity: -Obesity with BMI of 57.5 -heart healthy, diabetic diet -PT/OT -We discussed the importance of weight loss. She gave me multiple excuses why this was not an option for her. She did report some interest in continuing the discussion with her primary care doctor. (10) DVT prophylaxis: -continue pradaxa as home dose 150 mg BID Full code Disposition-plan for home when medically stable. Sola Harris DO [facility] hospitalist Subjective 63-year-old diabetic female presents with right lower extremity cellulitis not improved after multiple outpatient rounds of antibiotics. Some improvement to the patient today on IV Zosyn since admission. She still reports some pain in the leg which is controlled with Tylenol she reports some chills but denies any fever. She is otherwise tolerating oral food without issue. She reports ambulating around the room. Physical Exam 2 Vital Signs (Past 24 Hours): Last Vital Signs Temp 36.6 C 10/02/18 11:35 Pulse 87 10/02/18 11:35 Resp 20 10/02/18 11:35 BP 120/70 10/02/18 11:35 Pulse Ox 90 10/02/18 11:35 CONSTITUTIONAL: obese, vitals as above, generally well-appearing EYES: normal conjuctivae, no scleral icterus ENT: MMM RESPIRATORY: clear to auscultation bilaterally, no crackles, rales or wheezes, normal respiratory effort CARDIOVASCULAR: irregular rate and irreg rhythm, S1 and 2 heard without murmurs , gallops or rubs GASTROINTESTINAL: very large protuberant abdomen with very large pannus that is disproportionately larger than her extremities. Normal bowel sounds, soft, nontender MUSCULOSKELETAL: strength 5/5 throughout, head is normocephalic and atraumatic , SKIN: warm and dry, confluent erythematous area on anterior tibia of RLE that does not go up to her knee area. Wound is dressed with dressing c/d/i, calluses covered with optifoam on both feet. NEUROLOGIC: CN 2-12 grossly intact, normal cognition, normal speech PSYCHIATRIC: alert cooperative and oriented to person, place and time. Results & Data Laboratory Results Short CBC 10/02/18 Range/Units 05:34 WBC 10.88 H (4.8-10.8) K/uL Hgb 11.8 L (12.0-16.0) g/dL Hct 37.4 (37-47) % Plt Count 328 (130-400) K/uL BMP 10/02/18 05:34 Sodium 139 Potassium 3.7 Chloride 107 Carbon Dioxide 25 BUN 30 H Creatinine 1.15 Glucose 107 H Calcium 8.9 Liver Function 10/02/18 Range/Units 05:34 Total Bilirubin 0.4 (0.2-1) mg/dl AST 35 (15-37) U/L ALT 41 (12-78) U/L Alkaline Phosphatase 77 (45-117) U/L Albumin 2.8 L (3.4-5.0) gm/dl Medications Administered Current Inpatient Medications Acetaminophen (Tylenol) 1,000 mg PO Q8 COUNT INCLUDES THE [facility] Stop: 11/01/18 13:59 Albuterol (Combivent Respimat) 1 puffs INH QID COUNT INCLUDES THE [facility] Stop: 10/28/18 20:59 Last Admin: 10/02/18 09:00 Dose: 1 puffs Allopurinol (Zyloprim) 100 mg PO BID COUNT INCLUDES THE [facility] Stop: 10/28/18 20:59 Last Admin: 10/02/18 09:03 Dose: 100 mg Aspirin (Ecotrin) 81 mg PO DAILY [facility]AMP[facility] Stop: 10/29/18 08:59 Last Admin: 10/02/18 09:05 Dose: 81 mg Atorvastatin Calcium (Lipitor) 40 mg PO DAILY COUNT INCLUDES THE [facility] Stop: 10/29/18 08:59 Last Admin: 10/02/18 09:03 Dose: 40 mg Dabigatran (Pradaxa) 150 mg PO BID COUNT INCLUDES THE [facility] Stop: 10/29/18 20:59 Last Admin: 10/02/18 09:03 Dose: 150 mg Dextrose (Dextrose 50%) 25 - 50 ml IV UD PRN; Protocol PRN Reason: Hypoglycemia Protocol Stop: 10/28/18 19:59 Diltiazem HCl (Dilacor Xr) 120 mg PO QAM COUNT INCLUDES THE [facility] Stop: 10/31/18 16:14 Last Admin: 10/02/18 09:04 Dose: 120 mg Diphenhydramine HCl (Benadryl) 25 mg PO HS PRN PRN Reason: Insomnia Stop: 10/29/18 05:43 Furosemide (Lasix) 40 mg PO QAM COUNT INCLUDES THE [facility] Stop: 10/30/18 13:44 Last Admin: 10/02/18 09:03 Dose: 40 mg Gabapentin (Neurontin) 600 mg PO BID COUNT INCLUDES THE [facility] Stop: 10/28/18 20:59 Last Admin: 10/02/18 09:03 Dose: 600 mg Gemfibrozil (Lopid) 600 mg PO BID COUNT INCLUDES THE [facility] Stop: 10/28/18 20:59 Last Admin: 10/02/18 09:03 Dose: 600 mg Glucagon (Glucagen) 1 mg SQ UD PRN; Protocol PRN Reason: Hypoglycemia Protocol Stop: 10/28/18 19:59 Glucose (Glucose 40%) 15 - 30 gm PO UD PRN; Protocol PRN Reason: Hypoglycemia Protocol Stop: 10/28/18 19:59 Glucose (Dex4 Glucose) 4 - 8 tabs PO UD PRN; Protocol PRN Reason: Hypoglycemia Protocol Stop: 10/28/18 19:59 Piperacillin Sod/Tazobactam (Sod 4.5 gm/ Dextrose) 120 mls @ 30 mls/hr IV Q8H COUNT INCLUDES THE [facility]; Protocol Stop: 10/09/18 01:59 Last Admin: 10/02/18 10:36 Dose: 30 mls/hr Insulin Aspart (Novolog Flexpen) 0 units SC ACHS COUNT INCLUDES THE [facility] Stop: 10/28/18 20:59 Last Admin: 10/02/18 09:02 Dose: 11 units Insulin Glargine (Lantus Solostar Pen) 30 units SC Q12 COUNT INCLUDES THE [facility] Stop: 10/31/18 20:59 Last Admin: 10/02/18 09:04 Dose: 30 units Levothyroxine Sodium (Synthroid) 112 mcg PO DAILYBB COUNT INCLUDES THE [facility] Stop: 10/29/18 06:29 Last Admin: 10/02/18 05:59 Dose: 112 mcg Metoprolol Tartrate (Lopressor) 25 mg PO BID COUNT INCLUDES THE [facility] Stop: 10/28/18 20:59 Last Admin: 10/02/18 09:05 Dose: 25 mg Miscellaneous (Carbohydrates For Hypoglycemia) 15 - 30 gm PO UD PRN PRN Reason: Hypoglycemia Treatment Stop: 10/28/18 19:59 Miscellaneous (Order Awaiting Action) 1 ea N/A QS COUNT INCLUDES THE [facility] Stop: 10/29/18 00:00 Last Admin: 10/02/18 09:00 Dose: Not Given Miscellaneous Information (Consult) 1 ea N/A UD PRN PRN Reason: Consult Stop: 10/28/18 18:18 Ondansetron HCl (Zofran) 4 mg IV Q6H PRN PRN Reason: Nausea Stop: 10/28/18 19:59 Polyethylene Glycol (Miralax Powder Packet) 17 gm PO DAILY PRN PRN Reason: Constipation Stop: 10/28/18 19:59 Fluticasone/Salmeterol (Advair Diskus 250/50) 1 puffs INH Q12H COUNT INCLUDES THE [facility] Stop: 10/28/18 20:59 Last Admin: 10/02/18 09:00 Dose: 1 puffs Silver Sulfadiazine (Silvadene 1% 50gm) 1 appln TOP DAILY [facility] Stop: 10/29/18 08:59 Last Admin: 10/02/18 10:32 Dose: Not Given _ (1) Atrial fibrillation Atrial fibrillation type: chronic Qualified Code(s): I48.2 - Chronic atrial fibrillation (2) T2DM (type 2 diabetes mellitus) 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: with medical terminologist use Diabetes mellitus complication status: with skin complications Diabetes mellitus complication detail: with other skin complication Diabetic retinopathy severity : Proliferative retinopathy type: Diabetes mellitus macular edema: Laterality: Chronic kidney disease stage: Qualified Code(s): E11.628 - Type 2 diabetes mellitus with other skin complications; Z79.4 - [facility] (current) use of insulin (3) HTN (hypertension) Hypertension type: essential hypertension Qualified Code(s): I10 - Essential (primary) hypertension (4) HLD (hyperlipidemia) Hyperlipidemia type: mixed hyperlipidemia Qualified Code(s): E78.2 - Mixed hyperlipidemia (5) Hypothyroid Hypothyroidism type: unspecified Qualified Code(s): E03.9 - Hypothyroidism, unspecified (6) COPD (chronic obstructive pulmonary disease) COPD type: unspecified COPD Chronic bronchitis type: Emphysema type: Qualified Code(s): J44.9 - Chronic obstructive pulmonary disease, unspecified
[2018-10-02] MEDS: FLUCONAZOLE 100 MG TAB PO SCH (13:47)
[2018-10-02] MEDS ORDERED: ACETAMINOPHEN SOLN 500 MG/15.62 ML UDP PO SCH (14:00)
[2018-10-02] MEDS: ACETAMINOPHEN 500 MG TAB PO SCH (22:54)
[2018-10-03] MEDS: PIPERACILLIN/TAZOBACTAM 4.5 GM in DEXTROSE 5% 100 ML IV SCH ×3 (01:39→18:06)
[2018-10-03] MEDS: ACETAMINOPHEN 500 MG TAB PO SCH ×3 (05:45→22:23)
[2018-10-03] MEDS: LEVOTHYROXINE SODIUM 112 MCG TABLET PO SCH (05:46)
[2018-10-03] MEDS: INSULIN ASPART 100 UNITS/ML 3 ML PEN SC SCH ×4 (08:14→22:09)
[2018-10-03] MEDS: FLUTICASONE/SALMETEROL 250/50 (ADVAIR) 14 PUFF/1 INHALER INH SCH ×2 (08:15→22:01)
[2018-10-03] MEDS: GABAPENTIN 600 MG TAB PO SCH ×2 (08:15→22:08)
[2018-10-03] MEDS: GEMFIBROZIL 600 MG TAB PO SCH ×2 (08:15→22:08)
[2018-10-03] MEDS: ATORVASTATIN 40 MG TAB PO SCH (08:15)
[2018-10-03] MEDS: METOPROLOL TARTRATE 25 MG TAB PO SCH ×2 (08:15→22:08)
[2018-10-03] MEDS: DABIGATRAN ETEXILATE 75 MG CAP PO SCH ×2 (08:16→22:05)
[2018-10-03] MEDS: FUROSEMIDE 40 MG TAB PO SCH (08:17)
[2018-10-03] MEDS: ALLOPURINOL 100 MG TAB PO SCH ×2 (08:18→22:06)
[2018-10-03] MEDS: ASPIRIN 81 MG ECTAB PO SCH (08:18)
[2018-10-03] MEDS: IPRATROPIUM BROMIDE/ALBUTEROL respimat INH INH SCH ×4 (08:18→22:01)
[2018-10-03] MEDS: FLUCONAZOLE 100 MG TAB PO SCH (08:18)
[2018-10-03] MEDS: SILVER SULFADIAZINE 1% CR 50 GM JAR TOP SCH (08:19)
[2018-10-03] MEDS: INSULIN GLARGINE SOLOSTAR 100 UNITS/ML 3 ML PEN SC SCH ×2 (08:19→22:02)
[2018-10-03] MEDS ORDERED: ACETAMINOPHEN 500 MG TAB PO SCH (09:00)
--- NOTE | 2018-10-03 16:11 | Hospitalist Progress Note ---
Date of Service October 03, 2018 Assessment & Plan (1) Cellulitis of right lower extremity: Right lower extremity cellulitis is proved since Zosyn began 09/28. Wound culture grew Winnie albicans with additional skin alirio. I viewed the wound yesterday during a dressing change and observed a stage II ulceration with serosanguinous drainage. I discussed the case with ID specification manager, and decided to start her on Diflucan. Her leg has improved greatly overnight including a recession of erythema and a resolution of her reported pain from yesterday. Blood cultures negative to date. Cont Zosyn and Diflucan another day and consider discharge on oral meds in the next two days. Appreciate wound care recs for ulcerative lesion. (2) Atrial fibrillation: Rate controlled with metoprolol 25 p.o. twice daily and diltiazem XR 360 mg which was decreased to 120 mg every morning. Telemetry review again reveals several spikes to the 130s overnight. Will double the dilt dose and continue to titrate as needed. Continue anticoagulation with Pradaxa. (3) T2DM (type 2 diabetes mellitus): Glucose at goal, continue Lantus and NovoLog with sliding scale and carb coverage while inpatient. (4) HTN (hypertension): Home valsartan/hydrochlorothiazide 320-25 mg p.o. daily was held on admission in setting of [place] I. She continues on Lasix 40 mg p.o. every morning which is also a home medication for her. We will continue holding this medicine as blood pressure is low normal (5) HLD (hyperlipidemia): -continue statin, gemfibrozil (6) Hypothyroid: -continue levothyroxine (7) COPD (chronic obstructive pulmonary disease): -no acute exacerbation -continue combivent, advair (8) NAVI (obstructive sleep apnea): -noncompliant with CPAP at HS (9) Morbid obesity: -Obesity with BMI of 57.5 -heart healthy, diabetic diet -PT/OT -We discussed the importance of weight loss. She gave me multiple excuses why this was not an option for her. She did report some interest in continuing the discussion with her primary care doctor. (10) DVT prophylaxis: -continue pradaxa as home dose 150 mg BID Full code Disposition-plan for home when medically stable. Sola Harris DO [facility] hospitalist Subjective 63-year-old diabetic female presents with right lower extremity cellulitis not improved after multiple outpatient rounds of antibiotics. Dramatic improvement on diflucan overnight. Resolution of pain in the leg. Denies fevers or chills. Tolerating PO. Ambulating around the room. Physical Exam 2 Vital Signs (Past 24 Hours): Last Vital Signs Temp 37.1 C 10/03/18 15:00 Pulse 87 10/03/18 15:00 Resp 21 10/03/18 15:00 BP 120/76 10/03/18 15:00 Pulse Ox 96 10/03/18 15:00 CONSTITUTIONAL: obese, vitals as above, generally well-appearing EYES: normal conjuctivae, no scleral icterus ENT: MMM RESPIRATORY: clear to auscultation bilaterally, no crackles, rales or wheezes, normal respiratory effort CARDIOVASCULAR: irregular rate and irreg rhythm, S1 and 2 heard without murmurs , gallops or rubs GASTROINTESTINAL: very large protuberant abdomen with very large pannus that is disproportionately larger than her extremities. Normal bowel sounds, soft, nontender MUSCULOSKELETAL: strength 5/5 throughout, head is normocephalic and atraumatic , SKIN: warm and dry, confluent erythematous area on anterior tibia of RLE that does not go up to her knee area. This is more light pink today with area of erythema decreased. Wound is dressed with dressing c/d/i, calluses covered with optifoam on both feet. NEUROLOGIC: CN 2-12 grossly intact, normal cognition, normal speech PSYCHIATRIC: alert cooperative and oriented to person, place and time. Results & Data Laboratory Results Short CBC 09/28/18 09/28/18 09/28/18 Range/Units 16:31 16:31 16:31 RBC 3.82 L (4.2-5.4) M/uL MCV 94.8 (80-100) fL MCH 30.6 (25-34) pg MCHC 32.3 (32-36) g/dL RDW Std Deviation 54.7 H (36.4-46.3) fL RDW Coeff of Faraz 15.9 H (11.5-14.5) % MPV 10.5 H (7.4-10.4) fL Immature Gran % (Auto) 0.4 % Neut % (Auto) 84.5 % Lymph % (Auto) 9.2 % [place] % (Auto) 5.4 % Eos % (Auto) 0.3 % Baso % (Auto) 0.2 % Immature Gran # (Auto) 0.07 H (0.00-0.02) K/uL Neut # (Auto) 13.80 H (1.4-6.5) K/uL Lymph # (Auto) 1.51 (1.2-3.4) K/uL [place] # (Auto) 0.88 H (0.11-0.59) K/uL Eos # (Auto) 0.05 (0-0.5) K/uL Baso # (Auto) 0.03 (0-0.2) K/uL PT 18.7 H (9.0-12.0) Seconds INR 1.9 H (0.9-1.1) APTT (21.0-31.0) Seconds PTT Ratio Sodium 132 L (136-145) mmol/L Potassium 4.5 (3.5-5.1) mmol/L Chloride 98 (98-107) mmol/L Carbon Dioxide 22 (21-32) mmol/L Anion Gap 12.0 H (3-11) BUN 58 H (7-18) mg/dl Creatinine 2.11 H (0.6-1.2) mg/dl Est Cr Clr Drug Dosing 40.3 ml/min Est GFR ( Amer) 28.2 Est GFR (Non-Af Amer) 24.3 BUN/Creatinine Ratio 27.5 H (10-20) Glucose 195 H (70-99) mg/dl POC Glucose (70-99) POC Lactic Acid Tony (0.90-1.70) mmol/L Calcium 9.2 (8.5-10.1) mg/dl Magnesium 2.8 H (1.8-2.4) mg/dl Total Bilirubin 0.3 (0.1-1) mg/dl AST 35 (15-37) U/L ALT 30 (12-78) U/L Alkaline Phosphatase 71 (45-117) U/L Troponin I < 0.015 (0-0.045) ng/ml Total Protein 7.7 (6.4-8.2) gm/dl Albumin 3.0 L (3.4-5.0) gm/dl Globulin 4.7 H (2.5-4.0) gm/dl Albumin/Globulin Ratio 0.6 L (0.9-2) Urine Color Urine Appearance (Clear) Urine pH (4.5-7.5) Ur Specific [place] (1.000-1.030) Urine Protein (Negative) Urine Glucose (UA) (Negative) Urine Ketones (Negative) Urine Blood (Negative) Urine Nitrite (Negative) Urine Bilirubin (Negative) Urine Urobilinogen (Negative) Ur Leukocyte Esterase (Negative) Nasal Screen MRSA (PCR) (Negative) Stl C. diff Tox B Gene (Neg) 09/28/18 09/28/18 09/29/18 Range/Units 16:38 21:03 00:10 RBC (4.2-5.4) M/uL MCV (80-100) fL MCH (25-34) pg MCHC (32-36) g/dL RDW Std Deviation (36.4-46.3) fL RDW Coeff of Faraz (11.5-14.5) % MPV (7.4-10.4) fL Immature Gran % (Auto) % Neut % (Auto) % Lymph % (Auto) % [place] % (Auto) % Eos % (Auto) % Baso % (Auto) % Immature Gran # (Auto) (0.00-0.02) K/uL Neut # (Auto) (1.4-6.5) K/uL Lymph # (Auto) (1.2-3.4) K/uL [place] # (Auto) (0.11-0.59) K/uL Eos # (Auto) (0-0.5) K/uL Baso # (Auto) (0-0.2) K/uL PT (9.0-12.0) Seconds INR (0.9-1.1) APTT (21.0-31.0) Seconds PTT Ratio Sodium (136-145) mmol/L Potassium (3.5-5.1) mmol/L Chloride (98-107) mmol/L Carbon Dioxide (21-32) mmol/L Anion Gap (3-11) BUN (7-18) mg/dl Creatinine (0.6-1.2) mg/dl Est Cr Clr Drug Dosing ml/min Est GFR ( Amer) Est GFR (Non-Af Amer) BUN/Creatinine Ratio (10-20) Glucose (70-99) mg/dl POC Glucose 175 H (70-99) POC Lactic Acid Tony 1.45 (0.90-1.70) mmol/L Calcium (8.5-10.1) mg/dl Magnesium (1.8-2.4) mg/dl Total Bilirubin (0.1-1) mg/dl AST (15-37) U/L ALT (12-78) U/L Alkaline Phosphatase (45-117) U/L Troponin I (0-0.045) ng/ml Total Protein (6.4-8.2) gm/dl Albumin (3.4-5.0) gm/dl Globulin (2.5-4.0) gm/dl Albumin/Globulin Ratio (0.9-2) Urine Color Yellow Urine Appearance Clear (Clear) Urine pH 5.0 (4.5-7.5) Ur Specific [place] 1.017 (1.000-1.030) Urine Protein Negative (Negative) Urine Glucose (UA) 3+ H (Negative) Urine Ketones Negative (Negative) Urine Blood Negative (Negative) Urine Nitrite Negative (Negative) Urine Bilirubin Negative (Negative) Urine Urobilinogen Negative (Negative) Ur Leukocyte Esterase Negative (Negative) Nasal Screen MRSA (PCR) (Negative) Stl C. diff Tox B Gene (Neg) 09/29/18 09/29/18 09/29/18 Range/Units 01:42 06:20 06:20 RBC 3.63 L (4.2-5.4) M/uL MCV 95.3 (80-100) fL MCH 30.3 (25-34) pg MCHC 31.8 L (32-36) g/dL RDW Std Deviation 54.5 H (36.4-46.3) fL RDW Coeff of Faraz 15.6 H (11.5-14.5) % MPV 10.0 (7.4-10.4) fL Immature Gran % (Auto) 0.3 % Neut % (Auto) 65.9 % Lymph % (Auto) 23.7 % [place] % (Auto) 7.9 % Eos % (Auto) 1.9 % Baso % (Auto) 0.3 % Immature Gran # (Auto) 0.03 H (0.00-0.02) K/uL Neut # (Auto) 6.33 (1.4-6.5) K/uL Lymph # (Auto) 2.28 (1.2-3.4) K/uL [place] # (Auto) 0.76 H (0.11-0.59) K/uL Eos # (Auto) 0.18 (0-0.5) K/uL Baso # (Auto) 0.03 (0-0.2) K/uL PT (9.0-12.0) Seconds INR (0.9-1.1) APTT (21.0-31.0) Seconds PTT Ratio Sodium 136 (136-145) mmol/L Potassium 3.8 D (3.5-5.1) mmol/L Chloride 103 (98-107) mmol/L Carbon Dioxide 23 (21-32) mmol/L Anion Gap 11.0 (3-11) BUN 58 H (7-18) mg/dl Creatinine 1.81 H D (0.6-1.2) mg/dl Est Cr Clr Drug Dosing 47.0 ml/min Est GFR ( Amer) 33.9 Est GFR (Non-Af Amer) 29.2 BUN/Creatinine Ratio 31.8 H (10-20) Glucose 177 H (70-99) mg/dl POC Glucose (70-99) POC Lactic Acid Tony (0.90-1.70) mmol/L Calcium 8.8 (8.5-10.1) mg/dl Magnesium 2.7 H (1.8-2.4) mg/dl Total Bilirubin (0.1-1) mg/dl AST (15-37) U/L ALT (12-78) U/L Alkaline Phosphatase (45-117) U/L Troponin I (0-0.045) ng/ml Total Protein (6.4-8.2) gm/dl Albumin (3.4-5.0) gm/dl Globulin (2.5-4.0) gm/dl Albumin/Globulin Ratio (0.9-2) Urine Color Urine Appearance (Clear) Urine pH (4.5-7.5) Ur Specific [place] (1.000-1.030) Urine Protein (Negative) Urine Glucose (UA) (Negative) Urine Ketones (Negative) Urine Blood (Negative) Urine Nitrite (Negative) Urine Bilirubin (Negative) Urine Urobilinogen (Negative) Ur Leukocyte Esterase (Negative) Nasal Screen MRSA (PCR) Negative (Negative) Stl C. diff Tox B Gene (Neg) 09/29/18 09/29/18 09/29/18 Range/Units 07:26 11:30 16:53 RBC (4.2-5.4) M/uL MCV (80-100) fL MCH (25-34) pg MCHC (32-36) g/dL RDW Std Deviation (36.4-46.3) fL RDW Coeff of Faraz (11.5-14.5) % MPV (7.4-10.4) fL Immature Gran % (Auto) % Neut % (Auto) % Lymph % (Auto) % [place] % (Auto) % Eos % (Auto) % Baso % (Auto) % Immature Gran # (Auto) (0.00-0.02) K/uL Neut # (Auto) (1.4-6.5) K/uL Lymph # (Auto) (1.2-3.4) K/uL [place] # (Auto) (0.11-0.59) K/uL Eos # (Auto) (0-0.5) K/uL Baso # (Auto) (0-0.2) K/uL PT (9.0-12.0) Seconds INR (0.9-1.1) APTT (21.0-31.0) Seconds PTT Ratio Sodium (136-145) mmol/L Potassium (3.5-5.1) mmol/L Chloride (98-107) mmol/L Carbon Dioxide (21-32) mmol/L Anion Gap (3-11) BUN (7-18) mg/dl Creatinine (0.6-1.2) mg/dl Est Cr Clr Drug Dosing ml/min Est GFR ( Amer) Est GFR (Non-Af Amer) BUN/Creatinine Ratio (10-20) Glucose (70-99) mg/dl POC Glucose 159 H 117 H 129 H (70-99) POC Lactic Acid Tony (0.90-1.70) mmol/L Calcium (8.5-10.1) mg/dl Magnesium (1.8-2.4) mg/dl Total Bilirubin (0.1-1) mg/dl AST (15-37) U/L ALT (12-78) U/L Alkaline Phosphatase (45-117) U/L Troponin I (0-0.045) ng/ml Total Protein (6.4-8.2) gm/dl Albumin (3.4-5.0) gm/dl Globulin (2.5-4.0) gm/dl Albumin/Globulin Ratio (0.9-2) Urine Color Urine Appearance (Clear) Urine pH (4.5-7.5) Ur Specific [place] (1.000-1.030) Urine Protein (Negative) Urine Glucose (UA) (Negative) Urine Ketones (Negative) Urine Blood (Negative) Urine Nitrite (Negative) Urine Bilirubin (Negative) Urine Urobilinogen (Negative) Ur Leukocyte Esterase (Negative) Nasal Screen MRSA (PCR) (Negative) Stl C. diff Tox B Gene (Neg) 09/29/18 09/30/18 09/30/18 Range/Units 21:01 05:35 05:35 RBC 3.74 L (4.2-5.4) M/uL MCV 94.9 (80-100) fL MCH 30.7 (25-34) pg MCHC 32.4 (32-36) g/dL RDW Std Deviation 52.8 H (36.4-46.3) fL RDW Coeff of Faraz 15.4 H (11.5-14.5) % MPV 10.0 (7.4-10.4) fL Immature Gran % (Auto) 0.2 % Neut % (Auto) 57.8 % Lymph % (Auto) 27.7 % [place] % (Auto) 9.6 % Eos % (Auto) 4.1 % Baso % (Auto) 0.6 % Immature Gran # (Auto) 0.02 (0.00-0.02) K/uL Neut # (Auto) 4.96 (1.4-6.5) K/uL Lymph # (Auto) 2.37 (1.2-3.4) K/uL [place] # (Auto) 0.82 H (0.11-0.59) K/uL Eos # (Auto) 0.35 (0-0.5) K/uL Baso # (Auto) 0.05 (0-0.2) K/uL PT 12.9 H (9.0-12.0) Seconds INR 1.3 H (0.9-1.1) APTT 52.3 H* (21.0-31.0) Seconds PTT Ratio 2.0 Sodium (136-145) mmol/L Potassium (3.5-5.1) mmol/L Chloride (98-107) mmol/L Carbon Dioxide (21-32) mmol/L Anion Gap (3-11) BUN (7-18) mg/dl Creatinine (0.6-1.2) mg/dl Est Cr Clr Drug Dosing ml/min Est GFR ( Amer) Est GFR (Non-Af Amer) BUN/Creatinine Ratio (10-20) Glucose (70-99) mg/dl POC Glucose 138 H (70-99) POC Lactic Acid Tony (0.90-1.70) mmol/L Calcium (8.5-10.1) mg/dl Magnesium (1.8-2.4) mg/dl Total Bilirubin (0.1-1) mg/dl AST (15-37) U/L ALT (12-78) U/L Alkaline Phosphatase (45-117) U/L Troponin I (0-0.045) ng/ml Total Protein (6.4-8.2) gm/dl Albumin (3.4-5.0) gm/dl Globulin (2.5-4.0) gm/dl Albumin/Globulin Ratio (0.9-2) Urine Color Urine Appearance (Clear) Urine pH (4.5-7.5) Ur Specific [place] (1.000-1.030) Urine Protein (Negative) Urine Glucose (UA) (Negative) Urine Ketones (Negative) Urine Blood (Negative) Urine Nitrite (Negative) Urine Bilirubin (Negative) Urine Urobilinogen (Negative) Ur Leukocyte Esterase (Negative) Nasal Screen MRSA (PCR) (Negative) Stl C. diff Tox B Gene (Neg) 09/30/18 09/30/18 09/30/18 Range/Units 05:35 07:48 11:56 RBC (4.2-5.4) M/uL MCV (80-100) fL MCH (25-34) pg MCHC (32-36) g/dL RDW Std Deviation (36.4-46.3) fL RDW Coeff of Faraz (11.5-14.5) % MPV (7.4-10.4) fL Immature Gran % (Auto) % Neut % (Auto) % Lymph % (Auto) % [place] % (Auto) % Eos % (Auto) % Baso % (Auto) % Immature Gran # (Auto) (0.00-0.02) K/uL Neut # (Auto) (1.4-6.5) K/uL Lymph # (Auto) (1.2-3.4) K/uL [place] # (Auto) (0.11-0.59) K/uL Eos # (Auto) (0-0.5) K/uL Baso # (Auto) (0-0.2) K/uL PT (9.0-12.0) Seconds INR (0.9-1.1) APTT (21.0-31.0) Seconds PTT Ratio Sodium 138 (136-145) mmol/L Potassium 4.0 (3.5-5.1) mmol/L Chloride 106 (98-107) mmol/L Carbon Dioxide 24 (21-32) mmol/L Anion Gap 8.0 (3-11) BUN 43 H (7-18) mg/dl Creatinine 1.37 H D (0.6-1.2) mg/dl Est Cr Clr Drug Dosing 62.1 ml/min Est GFR ( Amer) 47.5 Est GFR (Non-Af Amer) 40.9 BUN/Creatinine Ratio 31.3 H (10-20) Glucose 130 H (70-99) mg/dl POC Glucose 126 H 113 H (70-99) POC Lactic Acid Tony (0.90-1.70) mmol/L Calcium 8.5 (8.5-10.1) mg/dl Magnesium (1.8-2.4) mg/dl Total Bilirubin 0.4 (0.1-1) mg/dl AST 45 H (15-37) U/L ALT 35 (12-78) U/L Alkaline Phosphatase 69 (45-117) U/L Troponin I (0-0.045) ng/ml Total Protein 7.6 (6.4-8.2) gm/dl Albumin 2.8 L (3.4-5.0) gm/dl Globulin 4.8 H (2.5-4.0) gm/dl Albumin/Globulin Ratio 0.6 L (0.9-2) Urine Color Urine Appearance (Clear) Urine pH (4.5-7.5) Ur Specific [place] (1.000-1.030) Urine Protein (Negative) Urine Glucose (UA) (Negative) Urine Ketones (Negative) Urine Blood (Negative) Urine Nitrite (Negative) Urine Bilirubin (Negative) Urine Urobilinogen (Negative) Ur Leukocyte Esterase (Negative) Nasal Screen MRSA (PCR) (Negative) Stl C. diff Tox B Gene (Neg) 09/30/18 09/30/18 10/01/18 Range/Units 16:45 20:07 06:51 RBC 3.92 L (4.2-5.4) M/uL MCV 95.9 (80-100) fL MCH 30.1 (25-34) pg MCHC 31.4 L (32-36) g/dL RDW Std Deviation 54.4 H (36.4-46.3) fL RDW Coeff of Faraz 15.6 H (11.5-14.5) % MPV 10.0 (7.4-10.4) fL Immature Gran % (Auto) 0.4 % Neut % (Auto) 57.7 % Lymph % (Auto) 29.1 % [place] % (Auto) 7.9 % Eos % (Auto) 4.1 % Baso % (Auto) 0.8 % Immature Gran # (Auto) 0.04 H (0.00-0.02) K/uL Neut # (Auto) 5.36 (1.4-6.5) K/uL Lymph # (Auto) 2.70 (1.2-3.4) K/uL [place] # (Auto) 0.73 H (0.11-0.59) K/uL Eos # (Auto) 0.38 (0-0.5) K/uL Baso # (Auto) 0.07 (0-0.2) K/uL PT (9.0-12.0) Seconds INR (0.9-1.1) APTT (21.0-31.0) Seconds PTT Ratio Sodium (136-145) mmol/L Potassium (3.5-5.1) mmol/L Chloride (98-107) mmol/L Carbon Dioxide (21-32) mmol/L Anion Gap (3-11) BUN (7-18) mg/dl Creatinine (0.6-1.2) mg/dl Est Cr Clr Drug Dosing ml/min Est GFR ( Amer) Est GFR (Non-Af Amer) BUN/Creatinine Ratio (10-20) Glucose (70-99) mg/dl POC Glucose 114 H 158 H (70-99) POC Lactic Acid Tony (0.90-1.70) mmol/L Calcium (8.5-10.1) mg/dl Magnesium (1.8-2.4) mg/dl Total Bilirubin (0.1-1) mg/dl AST (15-37) U/L ALT (12-78) U/L Alkaline Phosphatase (45-117) U/L Troponin I (0-0.045) ng/ml Total Protein (6.4-8.2) gm/dl Albumin (3.4-5.0) gm/dl Globulin (2.5-4.0) gm/dl Albumin/Globulin Ratio (0.9-2) Urine Color Urine Appearance (Clear) Urine pH (4.5-7.5) Ur Specific [place] (1.000-1.030) Urine Protein (Negative) Urine Glucose (UA) (Negative) Urine Ketones (Negative) Urine Blood (Negative) Urine Nitrite (Negative) Urine Bilirubin (Negative) Urine Urobilinogen (Negative) Ur Leukocyte Esterase (Negative) Nasal Screen MRSA (PCR) (Negative) Stl C. diff Tox B Gene (Neg) 10/01/18 10/01/18 10/01/18 Range/Units 06:51 07:37 11:32 RBC (4.2-5.4) M/uL MCV (80-100) fL MCH (25-34) pg MCHC (32-36) g/dL RDW Std Deviation (36.4-46.3) fL RDW Coeff of Faraz (11.5-14.5) % MPV (7.4-10.4) fL Immature Gran % (Auto) % Neut % (Auto) % Lymph % (Auto) % [place] % (Auto) % Eos % (Auto) % Baso % (Auto) % Immature Gran # (Auto) (0.00-0.02) K/uL Neut # (Auto) (1.4-6.5) K/uL Lymph # (Auto) (1.2-3.4) K/uL [place] # (Auto) (0.11-0.59) K/uL Eos # (Auto) (0-0.5) K/uL Baso # (Auto) (0-0.2) K/uL PT (9.0-12.0) Seconds INR (0.9-1.1) APTT (21.0-31.0) Seconds PTT Ratio Sodium 138 (136-145) mmol/L Potassium 4.2 (3.5-5.1) mmol/L Chloride 105 (98-107) mmol/L Carbon Dioxide 25 (21-32) mmol/L Anion Gap 8.0 (3-11) BUN 34 H (7-18) mg/dl Creatinine 1.26 H (0.6-1.2) mg/dl Est Cr Clr Drug Dosing 66.5 ml/min Est GFR ( Amer) 52.5 Est GFR (Non-Af Amer) 45.3 BUN/Creatinine Ratio 26.7 H (10-20) Glucose 113 H (70-99) mg/dl POC Glucose 133 H 140 H (70-99) POC Lactic Acid Tony (0.90-1.70) mmol/L Calcium 9.1 (8.5-10.1) mg/dl Magnesium 2.1 (1.8-2.4) mg/dl Total Bilirubin (0.1-1) mg/dl AST (15-37) U/L ALT (12-78) U/L Alkaline Phosphatase (45-117) U/L Troponin I (0-0.045) ng/ml Total Protein (6.4-8.2) gm/dl Albumin (3.4-5.0) gm/dl Globulin (2.5-4.0) gm/dl Albumin/Globulin Ratio (0.9-2) Urine Color Urine Appearance (Clear) Urine pH (4.5-7.5) Ur Specific [place] (1.000-1.030) Urine Protein (Negative) Urine Glucose (UA) (Negative) Urine Ketones (Negative) Urine Blood (Negative) Urine Nitrite (Negative) Urine Bilirubin (Negative) Urine Urobilinogen (Negative) Ur Leukocyte Esterase (Negative) Nasal Screen MRSA (PCR) (Negative) Stl C. diff Tox B Gene (Neg) 12/30/18 12/30/18 12/30/18 Range/Units 16:46 20:21 21:20 RBC (4.2-5.4) M/uL MCV (80-100) fL MCH (25-34) pg MCHC (32-36) g/dL RDW Std Deviation (36.4-46.3) fL RDW Coeff of Faraz (11.5-14.5) % MPV (7.4-10.4) fL Immature Gran % (Auto) % Neut % (Auto) % Lymph % (Auto) % [place] % (Auto) % Eos % (Auto) % Baso % (Auto) % Immature Gran # (Auto) (0.00-0.02) K/uL Neut # (Auto) (1.4-6.5) K/uL Lymph # (Auto) (1.2-3.4) K/uL [place] # (Auto) (0.11-0.59) K/uL Eos # (Auto) (0-0.5) K/uL Baso # (Auto) (0-0.2) K/uL PT (9.0-12.0) Seconds INR (0.9-1.1) APTT (21.0-31.0) Seconds PTT Ratio Sodium (136-145) mmol/L Potassium (3.5-5.1) mmol/L Chloride (98-107) mmol/L Carbon Dioxide (21-32) mmol/L Anion Gap (3-11) BUN (7-18) mg/dl Creatinine (0.6-1.2) mg/dl Est Cr Clr Drug Dosing ml/min Est GFR ( Amer) Est GFR (Non-Af Amer) BUN/Creatinine Ratio (10-20) Glucose (70-99) mg/dl POC Glucose 137 H 153 H (70-99) POC Lactic Acid Tony (0.90-1.70) mmol/L Calcium (8.5-10.1) mg/dl Magnesium (1.8-2.4) mg/dl Total Bilirubin (0.1-1) mg/dl AST (15-37) U/L ALT (12-78) U/L Alkaline Phosphatase (45-117) U/L Troponin I (0-0.045) ng/ml Total Protein (6.4-8.2) gm/dl Albumin (3.4-5.0) gm/dl Globulin (2.5-4.0) gm/dl Albumin/Globulin Ratio (0.9-2) Urine Color Urine Appearance (Clear) Urine pH (4.5-7.5) Ur Specific [place] (1.000-1.030) Urine Protein (Negative) Urine Glucose (UA) (Negative) Urine Ketones (Negative) Urine Blood (Negative) Urine Nitrite (Negative) Urine Bilirubin (Negative) Urine Urobilinogen (Negative) Ur Leukocyte Esterase (Negative) Nasal Screen MRSA (PCR) (Negative) Stl C. diff Tox B Gene Neg C.diff Toxin B (Neg) 10/02/18 10/02/18 10/02/18 Range/Units 05:34 05:34 07:52 RBC 3.93 L (4.2-5.4) M/uL MCV 95.2 (80-100) fL MCH 30.0 (25-34) pg MCHC 31.6 L (32-36) g/dL RDW Std Deviation 52.8 H (36.4-46.3) fL RDW Coeff of Faraz 15.3 H (11.5-14.5) % MPV 9.7 (7.4-10.4) fL Immature Gran % (Auto) 0.6 % Neut % (Auto) 54.1 % Lymph % (Auto) 31.9 % [place] % (Auto) 8.7 % Eos % (Auto) 4.0 % Baso % (Auto) 0.7 % Immature Gran # (Auto) 0.07 H (0.00-0.02) K/uL Neut # (Auto) 5.87 (1.4-6.5) K/uL Lymph # (Auto) 3.47 H (1.2-3.4) K/uL [place] # (Auto) 0.95 H (0.11-0.59) K/uL Eos # (Auto) 0.44 (0-0.5) K/uL Baso # (Auto) 0.08 (0-0.2) K/uL PT (9.0-12.0) Seconds INR (0.9-1.1) APTT (21.0-31.0) Seconds PTT Ratio Sodium 139 (136-145) mmol/L Potassium 3.7 (3.5-5.1) mmol/L Chloride 107 (98-107) mmol/L Carbon Dioxide 25 (21-32) mmol/L Anion Gap 7.0 (3-11) BUN 30 H (7-18) mg/dl Creatinine 1.15 (0.6-1.2) mg/dl Est Cr Clr Drug Dosing 72.9 ml/min Est GFR ( Amer) 58.6 Est GFR (Non-Af Amer) 50.6 BUN/Creatinine Ratio 26.0 H (10-20) Glucose 107 H (70-99) mg/dl POC Glucose 106 H (70-99) POC Lactic Acid Tony (0.90-1.70) mmol/L Calcium 8.9 (8.5-10.1) mg/dl Magnesium (1.8-2.4) mg/dl Total Bilirubin 0.4 (0.1-1) mg/dl AST 35 (15-37) U/L ALT 41 (12-78) U/L Alkaline Phosphatase 77 (45-117) U/L Troponin I (0-0.045) ng/ml Total Protein 7.2 (6.4-8.2) gm/dl Albumin 2.8 L (3.4-5.0) gm/dl Globulin 4.4 H (2.5-4.0) gm/dl Albumin/Globulin Ratio 0.6 L (0.9-2) Urine Color Urine Appearance (Clear) Urine pH (4.5-7.5) Ur Specific [place] (1.000-1.030) Urine Protein (Negative) Urine Glucose (UA) (Negative) Urine Ketones (Negative) Urine Blood (Negative) Urine Nitrite (Negative) Urine Bilirubin (Negative) Urine Urobilinogen (Negative) Ur Leukocyte Esterase (Negative) Nasal Screen MRSA (PCR) (Negative) Stl C. diff Tox B Gene (Neg) 10/02/18 10/02/18 10/02/18 Range/Units 11:18 17:02 20:16 RBC (4.2-5.4) M/uL MCV (80-100) fL MCH (25-34) pg MCHC (32-36) g/dL RDW Std Deviation (36.4-46.3) fL RDW Coeff of Faraz (11.5-14.5) % MPV (7.4-10.4) fL Immature Gran % (Auto) % Neut % (Auto) % Lymph % (Auto) % [place] % (Auto) % Eos % (Auto) % Baso % (Auto) % Immature Gran # (Auto) (0.00-0.02) K/uL Neut # (Auto) (1.4-6.5) K/uL Lymph # (Auto) (1.2-3.4) K/uL [place] # (Auto) (0.11-0.59) K/uL Eos # (Auto) (0-0.5) K/uL Baso # (Auto) (0-0.2) K/uL PT (9.0-12.0) Seconds INR (0.9-1.1) APTT (21.0-31.0) Seconds PTT Ratio Sodium (136-145) mmol/L Potassium (3.5-5.1) mmol/L Chloride (98-107) mmol/L Carbon Dioxide (21-32) mmol/L Anion Gap (3-11) BUN (7-18) mg/dl Creatinine (0.6-1.2) mg/dl Est Cr Clr Drug Dosing ml/min Est GFR ( Amer) Est GFR (Non-Af Amer) BUN/Creatinine Ratio (10-20) Glucose (70-99) mg/dl POC Glucose 154 H 100 H 120 H (70-99) POC Lactic Acid Tony (0.90-1.70) mmol/L Calcium (8.5-10.1) mg/dl Magnesium (1.8-2.4) mg/dl Total Bilirubin (0.1-1) mg/dl AST (15-37) U/L ALT (12-78) U/L Alkaline Phosphatase (45-117) U/L Troponin I (0-0.045) ng/ml Total Protein (6.4-8.2) gm/dl Albumin (3.4-5.0) gm/dl Globulin (2.5-4.0) gm/dl Albumin/Globulin Ratio (0.9-2) Urine Color Urine Appearance (Clear) Urine pH (4.5-7.5) Ur Specific [place] (1.000-1.030) Urine Protein (Negative) Urine Glucose (UA) (Negative) Urine Ketones (Negative) Urine Blood (Negative) Urine Nitrite (Negative) Urine Bilirubin (Negative) Urine Urobilinogen (Negative) Ur Leukocyte Esterase (Negative) Nasal Screen MRSA (PCR) (Negative) Stl C. diff Tox B Gene (Neg) 10/03/18 10/03/18 10/03/18 Range/Units 07:31 11:29 16:18 RBC (4.2-5.4) M/uL MCV (80-100) fL MCH (25-34) pg MCHC (32-36) g/dL RDW Std Deviation (36.4-46.3) fL RDW Coeff of Faraz (11.5-14.5) % MPV (7.4-10.4) fL Immature Gran % (Auto) % Neut % (Auto) % Lymph % (Auto) % [place] % (Auto) % Eos % (Auto) % Baso % (Auto) % Immature Gran # (Auto) (0.00-0.02) K/uL Neut # (Auto) (1.4-6.5) K/uL Lymph # (Auto) (1.2-3.4) K/uL [place] # (Auto) (0.11-0.59) K/uL Eos # (Auto) (0-0.5) K/uL Baso # (Auto) (0-0.2) K/uL PT (9.0-12.0) Seconds INR (0.9-1.1) APTT (21.0-31.0) Seconds PTT Ratio Sodium (136-145) mmol/L Potassium (3.5-5.1) mmol/L Chloride (98-107) mmol/L Carbon Dioxide (21-32) mmol/L Anion Gap (3-11) BUN (7-18) mg/dl Creatinine (0.6-1.2) mg/dl Est Cr Clr Drug Dosing ml/min Est GFR ( Amer) Est GFR (Non-Af Amer) BUN/Creatinine Ratio (10-20) Glucose (70-99) mg/dl POC Glucose 103 H 157 H 120 H (70-99) POC Lactic Acid Tony (0.90-1.70) mmol/L Calcium (8.5-10.1) mg/dl Magnesium (1.8-2.4) mg/dl Total Bilirubin (0.1-1) mg/dl AST (15-37) U/L ALT (12-78) U/L Alkaline Phosphatase (45-117) U/L Troponin I (0-0.045) ng/ml Total Protein (6.4-8.2) gm/dl Albumin (3.4-5.0) gm/dl Globulin (2.5-4.0) gm/dl Albumin/Globulin Ratio (0.9-2) Urine Color Urine Appearance (Clear) Urine pH (4.5-7.5) Ur Specific [place] (1.000-1.030) Urine Protein (Negative) Urine Glucose (UA) (Negative) Urine Ketones (Negative) Urine Blood (Negative) Urine Nitrite (Negative) Urine Bilirubin (Negative) Urine Urobilinogen (Negative) Ur Leukocyte Esterase (Negative) Nasal Screen MRSA (PCR) (Negative) Stl C. diff Tox B Gene (Neg) Medications Administered Current Inpatient Medications Acetaminophen (Tylenol) 1,000 mg PO Q8 [facility] Stop: 11/01/18 22:59 Last Admin: 10/03/18 15:13 Dose: 1,000 mg Albuterol (Combivent Respimat) 1 puffs INH QID [facility] Stop: 10/28/18 20:59 Last Admin: 10/03/18 17:08 Dose: 1 puffs Allopurinol (Zyloprim) 100 mg PO BID [facility] Stop: 10/28/18 20:59 Last Admin: 10/03/18 08:18 Dose: 100 mg Aspirin (Ecotrin) 81 mg PO DAILY [facility] Stop: 10/29/18 08:59 Last Admin: 10/03/18 08:18 Dose: 81 mg Atorvastatin Calcium (Lipitor) 40 mg PO DAILY [facility] Stop: 10/29/18 08:59 Last Admin: 10/03/18 08:15 Dose: 40 mg Dabigatran (Pradaxa) 150 mg PO BID [facility] Stop: 10/29/18 20:59 Last Admin: 10/03/18 08:16 Dose: 150 mg Dextrose (Dextrose 50%) 25 - 50 ml IV UD PRN; Protocol PRN Reason: Hypoglycemia Protocol Stop: 10/28/18 19:59 Diltiazem HCl (Tiazac) 240 mg PO QAM [facility] Stop: 11/03/18 08:59 Diphenhydramine HCl (Benadryl) 25 mg PO HS PRN PRN Reason: Insomnia Stop: 10/29/18 05:43 Fluconazole (Diflucan) 100 mg PO QAM [facility] Stop: 10/16/18 13:29 Last Admin: 10/03/18 08:18 Dose: 100 mg Furosemide (Lasix) 40 mg PO QAM [facility] Stop: 10/30/18 13:44 Last Admin: 10/03/18 08:17 Dose: 40 mg Gabapentin (Neurontin) 600 mg PO BID [facility] Stop: 10/28/18 20:59 Last Admin: 10/03/18 08:15 Dose: 600 mg Gemfibrozil (Lopid) 600 mg PO BID [facility] Stop: 10/28/18 20:59 Last Admin: 10/03/18 08:15 Dose: 600 mg Glucagon (Glucagen) 1 mg SQ UD PRN; Protocol PRN Reason: Hypoglycemia Protocol Stop: 10/28/18 19:59 Glucose (Glucose 40%) 15 - 30 gm PO UD PRN; Protocol PRN Reason: Hypoglycemia Protocol Stop: 10/28/18 19:59 Glucose (Dex4 Glucose) 4 - 8 tabs PO UD PRN; Protocol PRN Reason: Hypoglycemia Protocol Stop: 10/28/18 19:59 Piperacillin Sod/Tazobactam (Sod 4.5 gm/ Dextrose) 120 mls @ 30 mls/hr IV Q8H [facility]; Protocol Stop: 10/09/18 01:59 Last Infusion: 10/03/18 14:30 Dose: Infused Insulin Aspart (Novolog Flexpen) 0 units SC ACHS [facility] Stop: 10/28/18 20:59 Last Admin: 10/03/18 17:05 Dose: 13 units Insulin Glargine (Lantus Solostar Pen) 30 units SC Q12 [facility] Stop: 10/31/18 20:59 Last Admin: 10/03/18 08:19 Dose: 30 units Levothyroxine Sodium (Synthroid) 112 mcg PO DAILYBB [facility] Stop: 10/29/18 06:29 Last Admin: 10/03/18 05:46 Dose: 112 mcg Metoprolol Tartrate (Lopressor) 25 mg PO BID [facility] Stop: 10/28/18 20:59 Last Admin: 10/03/18 08:15 Dose: 25 mg Miscellaneous (Carbohydrates For Hypoglycemia) 15 - 30 gm PO UD PRN PRN Reason: Hypoglycemia Treatment Stop: 10/28/18 19:59 Miscellaneous (Order Awaiting Action) 1 ea N/A QS [facility] Stop: 10/29/18 00:00 Last Admin: 10/03/18 16:25 Dose: Not Given Miscellaneous Information (Consult) 1 ea N/A UD PRN PRN Reason: Consult Stop: 10/28/18 18:18 Ondansetron HCl (Zofran) 4 mg IV Q6H PRN PRN Reason: Nausea Stop: 10/28/18 19:59 Polyethylene Glycol (Miralax Powder Packet) 17 gm PO DAILY PRN PRN Reason: Constipation Stop: 10/28/18 19:59 Fluticasone/Salmeterol (Advair Diskus 250/50) 1 puffs INH Q12H [facility] Stop: 10/28/18 20:59 Last Admin: 10/03/18 08:15 Dose: 1 puffs Silver Sulfadiazine (Silvadene 1% 50gm) 1 appln TOP DAILY [facility] Stop: 10/29/18 08:59 Last Admin: 10/03/18 08:19 Dose: 1 appln _ (1) T2DM (type 2 diabetes mellitus) Chronic kidney disease stage: Diabetes mellitus complication detail: with other skin complication Diabetes mellitus complication status: with skin complications Diabetes mellitus assisted insulin use: with assisted use Diabetes mellitus macular edema: Diabetic retinopathy severity: Laterality: Proliferative retinopathy type: Qualified Code(s): E11.628 - Type 2 diabetes mellitus with other skin complications; Z79.4 - nursing home (current) use of insulin (2) Atrial fibrillation Atrial fibrillation type: chronic Qualified Code(s): I48.2 - Chronic atrial fibrillation (3) HLD (hyperlipidemia) Hyperlipidemia type: mixed hyperlipidemia Qualified Code(s): E78.2 - Mixed hyperlipidemia (4) Hypothyroid Hypothyroidism type: unspecified Qualified Code(s): E03.9 - Hypothyroidism, unspecified (5) COPD (chronic obstructive pulmonary disease) COPD type: unspecified COPD Chronic bronchitis type: Emphysema type: Qualified Code(s): J44.9 - Chronic obstructive pulmonary disease, unspecified (6) HTN (hypertension) Hypertension type: essential hypertension Qualified Code(s): I10 - Essential (primary) hypertension
--- NOTE | 2018-10-04 00:58 | Emergency Department Note ---
Entered by Shani Bassett acting as a scribe for History of Present Illness General Chief complaint: Leg Injury/Pain Stated complaint: POSSIBLE DVT, RIGHT LEG Time Seen by Provider: 09/28/18 15:44 Source: patient History of Present Illness Onset (ago): day(s) 4 Location: lower extremity and right Pain Consistency: + other (worsening) Maximum Pain Intensity: 3 Quality: + other (infection) Associated symptoms: + fever/chills and + other (positive pain right leg; positive pain in right hip) The patient is a 63 year old female who presents to the Emergency Room with complaints of a worsening infection on her right lower leg that began 4 days prior to arrival. The patient states that she has pain in her left leg above her knee and in her right hip. The patient states that she has had chills during this time. The patient states that she takes Aspirin, Pradaxa, and Metoprolol. The patient states that she has diabetes. She denies previous blood clots. Pt states she has previously had cellulitis in her leg but has never needed admitted. No know hx of MRSA. Pt admits to higher than usual blood sugar readings at home despite poor po intake. Home Medications Home Medications Medication Instructions Recorded Confirmed Type allopurinol 100 mg PO BID 09/28/18 09/28/18 History aspirin [Aspirin Low Dose] 81 mg PO DAILY 09/28/18 09/28/18 History atorvastatin 40 mg PO DAILY 09/28/18 09/28/18 History benzonatate 100 mg PO TID PRN 09/28/18 09/28/18 History dabigatran etexilate [Pradaxa] 150 mg PO BID 09/28/18 09/28/18 History diltiazem HCl 360 mg PO DAILY 09/28/18 09/28/18 History empagliflozin 25 mg PO DAILY 09/28/18 09/28/18 History fluticasone-salmeterol [Advair 1 inh INHALATION Q12H 09/28/18 09/28/18 History Diskus] furosemide 40 mg PO DAILY 09/28/18 09/28/18 History gabapentin 600 mg PO BID 09/28/18 09/28/18 History gemfibrozil 600 mg PO BID 09/28/18 09/28/18 History insulin glargine [Lantus Solostar 70 unit SUBCUT DAILY 09/28/18 09/28/18 History U-100 Insulin] insulin lispro [Humalog KwikPen 15 unit SUBCUT DAILY 09/28/18 09/28/18 History Insulin] insulin lispro [Humalog KwikPen 30 unit SUBCUT QPM 09/28/18 09/28/18 History Insulin] insulin lispro [Humalog KwikPen 35 unit SUBCUT QAM 09/28/18 09/28/18 History Insulin] ipratropium-albuterol 1 puff INHALATION QID 09/28/18 09/28/18 History ipratropium-albuterol [Combivent 1 puff INHALATION DAILY 09/28/18 09/28/18 History Respimat] levothyroxine 112 mcg PO DAILY 09/28/18 09/28/18 History metoprolol tartrate 25 mg PO BID 09/28/18 09/28/18 History mometasone 2 spray INTRANASAL DAILY 09/28/18 09/28/18 History silver sulfadiazine 1 applic TOPICAL DAILY 09/28/18 09/28/18 History valsartan-hydrochlorothiazide 1 tab PO DAILY 09/28/18 09/28/18 History Allergies Allergy/AdvReac Type Severity Reaction Status Date / Time GIN Inhibitors Allergy Unknown UNK Verified 09/28/18 16:24 cat dander Allergy Unknown UNK Verified 09/28/18 16:24 codeine Allergy Unknown "CODEINE Verified 09/28/18 16:24 DERIVATIVES" hydrocodone Allergy Unknown unknown Unverified 09/28/18 16:24 meperidine Allergy Unknown _ Verified 09/28/18 16:24 morphine Allergy Unknown "MORPHINE Verified 09/28/18 16:24 DERIVATIVES", MORPHINE IS OK pioglitazone Allergy Unknown UNK Verified 09/28/18 16:24 nickel AdvReac Rash Verified 09/28/18 18:39 Cockroach Allergy Unknown UNK Uncoded 09/28/18 16:24 Dust Allergy Unknown UNK Uncoded 09/28/18 16:24 Unclassified Drugs Allergy Unknown "ALLERGIC Uncoded 09/28/18 16:24 TO TREES" Past Med/Surg History Medical History T2DM (type 2 diabetes mellitus) HTN (hypertension) HLD (hyperlipidemia) COPD (chronic obstructive pulmonary disease) NAVI (obstructive sleep apnea) Diabetic neuropathy CKD (chronic kidney disease) stage 3, GFR 30-59 ml/min GERD (gastroesophageal reflux disease) Depression Hypothyroid Gout Morbid obesity Atrial fibrillation (Chronic) Atrial fibrillation with rapid ventricular response (Resolved 07/14/14) Cellulitis (Resolved) Surgical History History of cholecystectomy History of hernia repair Family History Father Heart attack CAD (coronary artery disease) Mother Complication of surgery Other No significant family history T2DM (type 2 diabetes mellitus) Social History marital status: Current Living Situation: Family Current Living Situation Comment: Lives at home with daugther, son in law and grandchildren Other Information That Helps Us Care for You: No Feels Safe at Home: Yes Smoking Status: Former smoker Years Smoked: 1 Hx Alcohol Use: No Hx Substance Use: No Beliefs That Will Affect Care: None Communication Ability: Effective Review of Systems See HPI for pertinent positives & negatives. and A total of 10 systems reviewed and were otherwise negative Physical Exam Vital Signs Vital Signs - 24 hr 10/03/18 04:00 10/03/18 07:44 10/03/18 08:00 Temperature 36.9 C 36.6 C Temperature Source Oral Oral Pulse Rate Pulse Rate [Left Finger] 81 83 Pulse Rhythm [Left Finger] Pulse Strength [Left Finger] Respiratory Rate 20 20 Respiratory Effort / Characteristics Respiratory Depth Respiratory Pattern Blood Pressure [Left Arm] Blood Pressure [Right Arm] 104/62 114/75 Blood Pressure Mean [Left Arm] Blood Pressure Mean [Right Arm] 76 88 Blood Pressure Position [Left Arm] Blood Pressure Position [Right Arm] Lying Lying Pulse Oximetry 93 94 Pulse Oximetry [Right Index Finger] Oxygen Delivery Method Room Air Room Air Room Air Oxygen Delivery Method [Right Index Finger] 10/03/18 11:50 10/03/18 15:00 10/03/18 16:00 Temperature 36.8 C 37.1 C Temperature Source Oral Oral Pulse Rate 90 Pulse Rate [Left Finger] 82 87 Pulse Rhythm [Left Finger] Pulse Strength [Left Finger] Respiratory Rate 20 21 Respiratory Effort / Characteristics Non-Labored Spontaneous Respiratory Depth Normal Respiratory Pattern Regular Blood Pressure [Left Arm] 126/77 Blood Pressure [Right Arm] 120/76 Blood Pressure Mean [Left Arm] 93 Blood Pressure Mean [Right Arm] 90 Blood Pressure Position [Left Arm] Lying Blood Pressure Position [Right Arm] Pulse Oximetry 96 96 Pulse Oximetry [Right Index Finger] 96 Oxygen Delivery Method Room Air Room Air Oxygen Delivery Method [Right Index Finger] Room Air 10/03/18 19:23 10/03/18 23:43 Temperature 36.9 C 37.1 C Temperature Source Oral Oral Pulse Rate Pulse Rate [Left Finger] 70 89 Pulse Rhythm [Left Finger] Regular Regular Pulse Strength [Left Finger] Normal Normal Respiratory Rate 18 20 Respiratory Effort / Characteristics Non-Labored Non-Labored Respiratory Depth Normal Normal Respiratory Pattern Regular Regular Blood Pressure [Left Arm] 143/89 H Blood Pressure [Right Arm] 127/74 Blood Pressure Mean [Left Arm] 107 Blood Pressure Mean [Right Arm] 91 Blood Pressure Position [Left Arm] Lying Blood Pressure Position [Right Arm] Lying Pulse Oximetry 95 96 Pulse Oximetry [Right Index Finger] Oxygen Delivery Method Room Air Room Air Oxygen Delivery Method [Right Index Finger] GENERAL: alert, well appearing, well nourished, no distress, non-toxic. Morbidly obese. EYE EXAM: normal conjunctiva, PERRL and EOM's grossly intact OROPHARYNX: no exudate, no erythema, lips, buccal mucosa, and tongue normal and mucous membranes are moist NECK: supple, no nuchal rigidity, no adenopathy, non-tender LUNGS: Clear to auscultation. Normal chest wall mechanics HEART: no murmurs, S1 normal and S2 normal ABDOMEN: abdomen soft, non-tender, normo-active bowel sounds, no masses, no rebound or guarding. BACK: Back is symmetrical on inspection and there is no deformity, no midline tenderness, no CVA tenderness. SKIN: no rashes and no bruising UPPER EXTREMITIES: upper extremities are grossly normal. FROM, nml pulses b/l. LOWER EXTREMITIES: Right lower extremity markedly edematous and erythematous with weeping noted to distal lower extremity. Area of callous and ulceration noted to right great toe. Erythema extends up to the level of the knee. Calf tenderness noted. Left lower extremity has great toe in with a bandage in place from recent wound care visit. No other evidence of infection to left lower extremity. NEURO EXAM: Normal sensorium, cranial nerves II-XII intact, normal speech, no weakness of arms, no weakness of legs. Course 1547: Past medical records reviewed. The patient was evaluated in room A3, and a complete history and physical examination were performed. 1714: I updated the patient on the results so far. 1723: I discussed the case with Freda Yanez PA-C who will further evaluate the patient. Consultations Consultation #1: I discussed the case with Freda Yanez PA-C who will further evaluate the patient. Time: 17:23 Administered Medications Acetaminophen (Tylenol) 1,000 mg PO Q8 [facility] Stop: 11/01/18 22:59 Last Admin: 10/03/18 22:23 Dose: 1,000 mg Admin: 10/03/18 15:13 Dose: 1,000 mg Admin: 10/03/18 05:45 Dose: 1,000 mg Admin: 10/02/18 22:54 Dose: 1,000 mg Albuterol (Combivent Respimat) 1 puffs INH QID [facility] Stop: 10/28/18 20:59 Last Admin: 10/03/18 22:01 Dose: 1 puffs Admin: 10/03/18 17:08 Dose: 1 puffs Admin: 10/03/18 12:50 Dose: 1 puffs Admin: 10/03/18 08:18 Dose: 1 puffs Admin: 10/02/18 20:43 Dose: 1 puffs Admin: 10/02/18 18:06 Dose: 1 puffs Admin: 10/02/18 13:48 Dose: 1 puffs Admin: 10/02/18 09:00 Dose: 1 puffs Admin: 10/01/18 20:31 Dose: 1 puffs Admin: 10/01/18 16:47 Dose: 1 puffs Admin: 10/01/18 12:07 Dose: 1 puffs Admin: 10/01/18 07:57 Dose: 1 puffs Admin: 09/30/18 21:50 Dose: 1 puffs Admin: 09/30/18 18:00 Dose: 1 puffs Admin: 09/30/18 13:14 Dose: 1 puffs Admin: 09/30/18 08:08 Dose: 1 puffs Admin: 09/29/18 21:08 Dose: 1 puffs Admin: 09/29/18 17:55 Dose: 1 puffs Admin: 09/29/18 12:27 Dose: 1 puffs Admin: 09/29/18 09:18 Dose: 1 puffs Admin: 09/28/18 21:30 Dose: 1 puffs Allopurinol (Zyloprim) 100 mg PO BID [facility] Stop: 10/28/18 20:59 Last Admin: 10/03/18 22:06 Dose: 100 mg Admin: 10/03/18 08:18 Dose: 100 mg Admin: 10/02/18 20:45 Dose: 100 mg Admin: 10/02/18 09:03 Dose: 100 mg Admin: 10/01/18 20:39 Dose: 100 mg Admin: 10/01/18 07:57 Dose: 100 mg Admin: 09/30/18 21:54 Dose: 100 mg Admin: 09/30/18 08:08 Dose: 100 mg Admin: 09/29/18 21:13 Dose: 100 mg Admin: 09/29/18 09:19 Dose: 100 mg Admin: 09/28/18 22:05 Dose: 100 mg Aspirin (Ecotrin) 81 mg PO DAILY [facility] Stop: 10/29/18 08:59 Last Admin: 10/03/18 08:18 Dose: 81 mg Admin: 10/02/18 09:05 Dose: 81 mg Admin: 10/01/18 07:57 Dose: 81 mg Admin: 09/30/18 08:09 Dose: 81 mg Admin: 09/29/18 09:19 Dose: 81 mg Atorvastatin Calcium (Lipitor) 40 mg PO DAILY [facility] Stop: 10/29/18 08:59 Last Admin: 10/03/18 08:15 Dose: 40 mg Admin: 10/02/18 09:03 Dose: 40 mg Admin: 10/01/18 07:58 Dose: 40 mg Admin: 09/30/18 08:09 Dose: 40 mg Admin: 09/29/18 09:19 Dose: 40 mg Dabigatran (Pradaxa) 150 mg PO BID [facility] Stop: 10/29/18 20:59 Last Admin: 10/03/18 22:05 Dose: 150 mg Admin: 10/03/18 08:16 Dose: 150 mg Admin: 10/02/18 20:44 Dose: 150 mg Admin: 10/02/18 09:03 Dose: 150 mg Admin: 10/01/18 20:38 Dose: 150 mg Admin: 10/01/18 07:57 Dose: 150 mg Admin: 09/30/18 21:53 Dose: 150 mg Admin: 09/30/18 08:08 Dose: 150 mg Admin: 09/29/18 21:11 Dose: 150 mg Fluconazole (Diflucan) 100 mg PO QA [facility] Stop: 10/16/18 13:29 Last Admin: 10/03/18 08:18 Dose: 100 mg Admin: 10/02/18 13:47 Dose: 100 mg Furosemide (Lasix) 40 mg PO [facility] Stop: 10/30/18 13:44 Last Admin: 10/03/18 08:17 Dose: 40 mg Admin: 10/02/18 09:03 Dose: 40 mg Admin: 10/01/18 07:58 Dose: 40 mg Admin: 09/30/18 14:10 Dose: 40 mg Gabapentin (Neurontin) 600 mg PO BID [facility] Stop: 10/28/18 20:59 Last Admin: 10/03/18 22:08 Dose: 600 mg Admin: 10/03/18 08:15 Dose: 600 mg Admin: 10/02/18 20:45 Dose: 600 mg Admin: 10/02/18 09:03 Dose: 600 mg Admin: 10/01/18 20:39 Dose: 600 mg Admin: 10/01/18 07:58 Dose: 600 mg Admin: 09/30/18 21:54 Dose: 600 mg Admin: 09/30/18 08:09 Dose: 600 mg Admin: 09/29/18 21:10 Dose: 600 mg Admin: 09/29/18 09:19 Dose: 600 mg Admin: 09/28/18 21:28 Dose: 600 mg Gemfibrozil (Lopid) 600 mg PO BID [facility] Stop: 10/28/18 20:59 Last Admin: 10/03/18 22:08 Dose: 600 mg Admin: 10/03/18 08:15 Dose: 600 mg Admin: 10/02/18 20:45 Dose: 600 mg Admin: 10/02/18 09:03 Dose: 600 mg Admin: 10/01/18 20:40 Dose: 600 mg Admin: 10/01/18 07:57 Dose: 600 mg Admin: 09/30/18 21:54 Dose: 600 mg Admin: 09/30/18 08:09 Dose: 600 mg Admin: 09/29/18 21:11 Dose: 600 mg Admin: 09/29/18 09:20 Dose: 600 mg Admin: 09/28/18 21:28 Dose: 600 mg Piperacillin Sod/Tazobactam (Sod 4.5 gm/ Dextrose) 120 mls @ 30 mls/hr IV Q8H [facility]; Protocol Stop: 10/09/18 01:59 Last Infusion: 10/03/18 22:23 Dose: 0 mls/hr Admin: 10/03/18 18:06 Dose: 30 mls/hr Infusion: 10/03/18 14:30 Dose: 0 mls/hr Admin: 10/03/18 10:25 Dose: 30 mls/hr Infusion: 10/03/18 05:12 Dose: 0 mls/hr Admin: 10/03/18 01:39 Dose: 30 mls/hr Infusion: 10/02/18 22:08 Dose: 0 mls/hr Admin: 10/02/18 18:05 Dose: 30 mls/hr Infusion: 10/02/18 14:21 Dose: 0 mls/hr Admin: 10/02/18 10:36 Dose: 30 mls/hr Infusion: 10/02/18 05:15 Dose: 0 mls/hr Admin: 10/02/18 02:00 Dose: 30 mls/hr Infusion: 10/01/18 22:28 Dose: 0 mls/hr Admin: 10/01/18 18:11 Dose: 30 mls/hr Infusion: 10/01/18 13:06 Dose: 0 mls/hr Admin: 10/01/18 09:35 Dose: 30 mls/hr Infusion: 10/01/18 05:51 Dose: 0 mls/hr Admin: 10/01/18 01:50 Dose: 30 mls/hr Infusion: 09/30/18 23:10 Dose: 0 mls/hr Admin: 09/30/18 18:34 Dose: 120 mls/hr Infusion: 09/30/18 14:19 Dose: 0 mls/hr Admin: 09/30/18 10:38 Dose: 30 mls/hr Infusion: 09/30/18 05:56 Dose: 0 mls/hr Admin: 09/30/18 01:52 Dose: 30 mls/hr Infusion: 09/29/18 22:20 Dose: 0 mls/hr Admin: 09/29/18 17:55 Dose: 30 mls/hr Infusion: 09/29/18 14:44 Dose: 0 mls/hr Admin: 09/29/18 10:29 Dose: 30 mls/hr Infusion: 09/29/18 07:44 Dose: 0 mls/hr Admin: 09/29/18 03:28 Dose: 30 mls/hr Insulin Aspart (Novolog Flexpen) 0 units SC ACHS [facility] Stop: 10/28/18 20:59 Last Admin: 10/03/18 22:09 Dose: Not Given Admin: 10/03/18 17:05 Dose: 13 units Admin: 10/03/18 12:50 Dose: 15 units Admin: 10/03/18 08:14 Dose: 12 units Admin: 10/02/18 20:33 Dose: Not Given Admin: 10/02/18 18:07 Dose: 5 units Admin: 10/02/18 13:49 Dose: 14 units Admin: 10/02/18 09:02 Dose: 11 units Admin: 10/01/18 20:43 Dose: 1 units Admin: 10/01/18 17:37 Dose: 7 units Admin: 10/01/18 11:59 Dose: 9 units Admin: 10/01/18 07:55 Dose: 10 units Admin: 09/30/18 21:55 Dose: 2 units Admin: 09/30/18 18:30 Dose: 14 units Admin: 09/30/18 13:14 Dose: 7 units Admin: 09/30/18 08:07 Dose: 12 units Admin: 09/29/18 21:19 Dose: Not Given Admin: 09/29/18 17:55 Dose: 10 units Admin: 09/29/18 12:27 Dose: 10 units Admin: 09/29/18 09:17 Dose: 9 units Admin: 09/28/18 21:28 Dose: 8 units Insulin Glargine (Lantus Solostar Pen) 30 units SC Q12 [facility] Stop: 10/31/18 20:59 Last Admin: 10/03/18 22:02 Dose: 30 units Admin: 10/03/18 08:19 Dose: 30 units Admin: 10/02/18 20:43 Dose: 30 units Admin: 10/02/18 09:04 Dose: 30 units Admin: 10/01/18 20:42 Dose: 30 units Levothyroxine Sodium (Synthroid) 112 mcg PO DAILYBB [facility] Stop: 10/29/18 06:29 Last Admin: 10/03/18 05:46 Dose: 112 mcg Admin: 10/02/18 05:59 Dose: 112 mcg Admin: 10/01/18 05:51 Dose: 112 mcg Admin: 09/30/18 05:25 Dose: 112 mcg Admin: 09/29/18 05:57 Dose: 112 mcg Metoprolol Tartrate (Lopressor) 25 mg PO BID [facility] Stop: 10/28/18 20:59 Last Admin: 10/03/18 22:08 Dose: 25 mg Admin: 10/03/18 08:15 Dose: 25 mg Admin: 10/02/18 20:58 Dose: Not Given Admin: 10/02/18 09:05 Dose: 25 mg Admin: 10/01/18 20:40 Dose: 25 mg Admin: 10/01/18 07:58 Dose: 25 mg Admin: 09/30/18 21:54 Dose: 25 mg Admin: 09/30/18 08:09 Dose: 25 mg Admin: 09/29/18 21:10 Dose: 25 mg Admin: 09/29/18 09:19 Dose: 25 mg Admin: 09/28/18 21:28 Dose: 25 mg Miscellaneous (Order Awaiting Action) 1 ea N/A QS [facility] Stop: 10/29/18 00:00 Last Admin: 10/03/18 16:25 Dose: Not Given Admin: 10/03/18 07:50 Dose: Not Given Admin: 10/02/18 23:39 Dose: Not Given Admin: 10/02/18 14:20 Dose: Not Given Admin: 10/02/18 09:00 Dose: Not Given Admin: 10/01/18 23:57 Dose: Not Given Admin: 10/01/18 17:40 Dose: Not Given Admin: 10/01/18 07:20 Dose: Not Given Admin: 09/30/18 23:57 Dose: Not Given Admin: 09/30/18 17:56 Dose: Not Given Admin: 09/30/18 08:07 Dose: Not Given Admin: 09/30/18 01:27 Dose: Not Given Admin: 09/29/18 17:53 Dose: Not Given Admin: 09/29/18 07:44 Dose: Not Given Admin: 09/29/18 00:21 Dose: Not Given Fluticasone/Salmeterol (Advair Diskus 250/50) 1 puffs INH Q12H [facility] Stop: 10/28/18 20:59 Last Admin: 10/03/18 22:01 Dose: 1 puffs Admin: 10/03/18 08:15 Dose: 1 puffs Admin: 10/02/18 20:43 Dose: 1 puffs Admin: 10/02/18 09:00 Dose: 1 puffs Admin: 10/01/18 20:31 Dose: 1 puffs Admin: 10/01/18 07:57 Dose: 1 puffs Admin: 09/30/18 21:49 Dose: 1 puffs Admin: 09/30/18 08:08 Dose: 1 puffs Admin: 09/29/18 21:08 Dose: 1 puffs Admin: 09/29/18 09:18 Dose: 1 puffs Admin: 09/28/18 21:30 Dose: 1 puffs Silver Sulfadiazine (Silvadene 1% 50gm) 1 appln TOP DAILY [facility] Stop: 10/29/18 08:59 Last Admin: 10/03/18 08:19 Dose: 1 appln Admin: 10/02/18 10:32 Dose: Not Given Admin: 10/01/18 07:57 Dose: 1 appln Admin: 09/30/18 08:09 Dose: 1 appln Admin: 09/29/18 10:29 Dose: 1 appln Discontinued Medications Acetaminophen (Tylenol) 650 mg PO Q4H PRN PRN Reason: Pain or Fever Stop: 10/28/18 19:59 Last Admin: 10/02/18 02:19 Dose: 650 mg Admin: 10/01/18 20:30 Dose: 650 mg Admin: 09/30/18 18:45 Dose: 650 mg Admin: 09/30/18 05:25 Dose: 650 mg Admin: 09/29/18 18:12 Dose: 650 mg Admin: 09/29/18 00:22 Dose: 650 mg Acetaminophen (Tylenol) 1,000 mg PO Q8 [facility] Stop: 11/01/18 13:59 Last Admin: 10/02/18 13:47 Dose: 1,000 mg Dabigatran (Pradaxa) 75 mg PO BID [facility] Stop: 10/28/18 20:59 Last Admin: 09/29/18 09:20 Dose: 75 mg Admin: 09/28/18 21:28 Dose: 75 mg Diltiazem HCl (Dilacor Xr) 120 mg PO QAM [facility] Stop: 10/31/18 16:14 Last Admin: 10/03/18 08:17 Dose: 120 mg Admin: 10/02/18 09:04 Dose: 120 mg Admin: 10/01/18 16:46 Dose: 120 mg Diltiazem HCl (Dilacor Xr) 120 mg PO ONE ONE Stop: 10/03/18 16:11 Last Admin: 10/03/18 17:08 Dose: 120 mg Sodium Chloride (Nss 1000ml) 1,000 mls @ 999 mls/hr IV .Q1H1M ONE Stop: 09/28/18 16:58 Last Infusion: 09/28/18 17:51 Dose: Admin: 09/28/18 16:39 Dose: 999 mls/hr Ceftriaxone Sodium (Rocephin) 1,000 mg in 50 mls @ 100 mls/hr IV NOW [facility] Stop: 09/28/18 17:17 Last Infusion: 09/28/18 17:37 Dose: Admin: 09/28/18 17:03 Dose: 100 mls/hr Sodium Chloride (Nss) 500 mls @ 999 mls/hr IV .Q31M ONE Stop: 09/28/18 19:00 Last Infusion: 09/28/18 19:10 Dose: 0 mls/hr Admin: 09/28/18 18:31 Dose: 999 mls/hr Sodium Chloride (Nss 1000ml) 1,000 mls @ 999 mls/hr IV .Q1H1M ONE Stop: 09/28/18 19:17 Last Admin: 09/28/18 23:11 Dose: Not Given Sodium Chloride (Nss 1000ml) 1,000 mls @ 80 mls/hr IV .[id number] [facility] Stop: 10/28/18 19:59 Last Infusion: 09/30/18 07:19 Dose: 0 mls/hr Infusion: 09/30/18 07:17 Dose: 0 mls/hr Admin: 09/29/18 09:18 Dose: 80 mls/hr Infusion: 09/29/18 09:18 Dose: 80 mls/hr Admin: 09/28/18 21:30 Dose: 80 mls/hr Piperacillin Sod/Tazobactam (Sod 4.5 gm/ Dextrose) 120 mls @ 200 mls/hr IV NOW ONE; Protocol Stop: 09/28/18 21:20 Last Infusion: 09/28/18 22:43 Dose: 0 mls/hr Admin: 09/28/18 21:30 Dose: 200 mls/hr Sodium Chloride (Nss 1000ml) 1,000 mls @ 80 mls/hr IV .[id number] [facility] Stop: 10/29/18 19:29 Last Infusion: 09/30/18 07:21 Dose: 0 mls/hr Admin: 09/29/18 21:16 Dose: 80 mls/hr Insulin Glargine (Lantus Solostar Pen) 25 units SC Q12 [facility] Stop: 10/28/18 20:59 Last Admin: 10/01/18 07:56 Dose: 25 units Admin: 09/30/18 21:56 Dose: 25 units Admin: 09/30/18 08:08 Dose: 25 units Admin: 09/29/18 21:20 Dose: 25 units Admin: 09/29/18 09:18 Dose: 25 units Admin: 09/28/18 21:31 Dose: 25 units Miscellaneous () Confirm Administered Dose 1 ea .ROUTE .STK-MED ONE Stop: 10/02/18 03:47 Last Admin: 10/02/18 05:16 Dose: Not Given Medical Decision Making Differential Diagnosis Differential diagnosis: Etiologies such as cellulitis, abscess, osteomyelitis, MRSA infection, DVT, necrotizing fasciitis, dermatitis, drug eruption, as well as others were entertained. Medical Records Attestation: I reviewed the patient's medical records. Home Medications Current Medication List: was personally reviewed by me Laboratory Data Attestation: I reviewed the patient's lab results. Result diagrams: 10/02/18 05:34 10/02/18 05:34 Lab Results 09/28/18 09/28/18 09/28/18 Range/Units 16:31 16:31 16:31 WBC 16.34 H (4.8-10.8) K/uL RBC 3.82 L (4.2-5.4) M/uL Hgb 11.7 L (12.0-16.0) g/dL Hct 36.2 L (37-47) % MCV 94.8 (80-100) fL MCH 30.6 (25-34) pg MCHC 32.3 (32-36) g/dL RDW Std Deviation 54.7 H (36.4-46.3) fL RDW Coeff of Faraz 15.9 H (11.5-14.5) % Plt Count 332 (130-400) K/uL MPV 10.5 H (7.4-10.4) fL Immature Gran % (Auto) 0.4 % Neut % (Auto) 84.5 % Lymph % (Auto) 9.2 % [place] % (Auto) 5.4 % Eos % (Auto) 0.3 % Baso % (Auto) 0.2 % Immature Gran # (Auto) 0.07 H (0.00-0.02) K/uL Neut # (Auto) 13.80 H (1.4-6.5) K/uL Lymph # (Auto) 1.51 (1.2-3.4) K/uL [place] # (Auto) 0.88 H (0.11-0.59) K/uL Eos # (Auto) 0.05 (0-0.5) K/uL Baso # (Auto) 0.03 (0-0.2) K/uL PT 18.7 H (9.0-12.0) Seconds INR 1.9 H (0.9-1.1) APTT (21.0-31.0) Seconds PTT Ratio Sodium 132 L (136-145) mmol/L Potassium 4.5 (3.5-5.1) mmol/L Chloride 98 (98-107) mmol/L Carbon Dioxide 22 (21-32) mmol/L Anion Gap 12.0 H (3-11) BUN 58 H (7-18) mg/dl Creatinine 2.11 H (0.6-1.2) mg/dl Est Cr Clr Drug Dosing 40.3 ml/min Est GFR ( Amer) 28.2 Est GFR (Non-Af Amer) 24.3 BUN/Creatinine Ratio 27.5 H (10-20) Glucose 195 H (70-99) mg/dl POC Glucose (70-99) POC Lactic Acid Tony (0.90-1.70) mmol/L Calcium 9.2 (8.5-10.1) mg/dl Magnesium 2.8 H (1.8-2.4) mg/dl Total Bilirubin 0.3 (0.1-1) mg/dl AST 35 (15-37) U/L ALT 30 (12-78) U/L Alkaline Phosphatase 71 (45-117) U/L Troponin I < 0.015 (0-0.045) ng/ml Total Protein 7.7 (6.4-8.2) gm/dl Albumin 3.0 L (3.4-5.0) gm/dl Globulin 4.7 H (2.5-4.0) gm/dl Albumin/Globulin Ratio 0.6 L (0.9-2) Urine Color Urine Appearance (Clear) Urine pH (4.5-7.5) Ur Specific [place] (1.000-1.030) Urine Protein (Negative) Urine Glucose (UA) (Negative) Urine Ketones (Negative) Urine Blood (Negative) Urine Nitrite (Negative) Urine Bilirubin (Negative) Urine Urobilinogen (Negative) Ur Leukocyte Esterase (Negative) Nasal Screen MRSA (PCR) (Negative) Stl C. diff Tox B Gene (Neg) 09/28/18 09/28/18 09/29/18 Range/Units 16:38 21:03 00:10 WBC (4.8-10.8) K/uL RBC (4.2-5.4) M/uL Hgb (12.0-16.0) g/dL Hct (37-47) % MCV (80-100) fL MCH (25-34) pg MCHC (32-36) g/dL RDW Std Deviation (36.4-46.3) fL RDW Coeff of Faraz (11.5-14.5) % Plt Count (130-400) K/uL MPV (7.4-10.4) fL Immature Gran % (Auto) % Neut % (Auto) % Lymph % (Auto) % [place] % (Auto) % Eos % (Auto) % Baso % (Auto) % Immature Gran # (Auto) (0.00-0.02) K/uL Neut # (Auto) (1.4-6.5) K/uL Lymph # (Auto) (1.2-3.4) K/uL [place] # (Auto) (0.11-0.59) K/uL Eos # (Auto) (0-0.5) K/uL Baso # (Auto) (0-0.2) K/uL PT (9.0-12.0) Seconds INR (0.9-1.1) APTT (21.0-31.0) Seconds PTT Ratio Sodium (136-145) mmol/L Potassium (3.5-5.1) mmol/L Chloride (98-107) mmol/L Carbon Dioxide (21-32) mmol/L Anion Gap (3-11) BUN (7-18) mg/dl Creatinine (0.6-1.2) mg/dl Est Cr Clr Drug Dosing ml/min Est GFR ( Amer) Est GFR (Non-Af Amer) BUN/Creatinine Ratio (10-20) Glucose (70-99) mg/dl POC Glucose 175 H (70-99) POC Lactic Acid Tony 1.45 (0.90-1.70) mmol/L Calcium (8.5-10.1) mg/dl Magnesium (1.8-2.4) mg/dl Total Bilirubin (0.1-1) mg/dl AST (15-37) U/L ALT (12-78) U/L Alkaline Phosphatase (45-117) U/L Troponin I (0-0.045) ng/ml Total Protein (6.4-8.2) gm/dl Albumin (3.4-5.0) gm/dl Globulin (2.5-4.0) gm/dl Albumin/Globulin Ratio (0.9-2) Urine Color Yellow Urine Appearance Clear (Clear) Urine pH 5.0 (4.5-7.5) Ur Specific [place] 1.017 (1.000-1.030) Urine Protein Negative (Negative) Urine Glucose (UA) 3+ H (Negative) Urine Ketones Negative (Negative) Urine Blood Negative (Negative) Urine Nitrite Negative (Negative) Urine Bilirubin Negative (Negative) Urine Urobilinogen Negative (Negative) Ur Leukocyte Esterase Negative (Negative) Nasal Screen MRSA (PCR) (Negative) Stl C. diff Tox B Gene (Neg) 09/29/18 09/29/18 09/29/18 Range/Units 01:42 06:20 06:20 WBC 9.61 (4.8-10.8) K/uL RBC 3.63 L (4.2-5.4) M/uL Hgb 11.0 L (12.0-16.0) g/dL Hct 34.6 L (37-47) % MCV 95.3 (80-100) fL MCH 30.3 (25-34) pg MCHC 31.8 L (32-36) g/dL RDW Std Deviation 54.5 H (36.4-46.3) fL RDW Coeff of Faraz 15.6 H (11.5-14.5) % Plt Count 296 (130-400) K/uL MPV 10.0 (7.4-10.4) fL Immature Gran % (Auto) 0.3 % Neut % (Auto) 65.9 % Lymph % (Auto) 23.7 % [place] % (Auto) 7.9 % Eos % (Auto) 1.9 % Baso % (Auto) 0.3 % Immature Gran # (Auto) 0.03 H (0.00-0.02) K/uL Neut # (Auto) 6.33 (1.4-6.5) K/uL Lymph # (Auto) 2.28 (1.2-3.4) K/uL [place] # (Auto) 0.76 H (0.11-0.59) K/uL Eos # (Auto) 0.18 (0-0.5) K/uL Baso # (Auto) 0.03 (0-0.2) K/uL PT (9.0-12.0) Seconds INR (0.9-1.1) APTT (21.0-31.0) Seconds PTT Ratio Sodium 136 (136-145) mmol/L Potassium 3.8 D (3.5-5.1) mmol/L Chloride 103 (98-107) mmol/L Carbon Dioxide 23 (21-32) mmol/L Anion Gap 11.0 (3-11) BUN 58 H (7-18) mg/dl Creatinine 1.81 H D (0.6-1.2) mg/dl Est Cr Clr Drug Dosing 47.0 ml/min Est GFR ( Amer) 33.9 Est GFR (Non-Af Amer) 29.2 BUN/Creatinine Ratio 31.8 H (10-20) Glucose 177 H (70-99) mg/dl POC Glucose (70-99) POC Lactic Acid Tony (0.90-1.70) mmol/L Calcium 8.8 (8.5-10.1) mg/dl Magnesium 2.7 H (1.8-2.4) mg/dl Total Bilirubin (0.1-1) mg/dl AST (15-37) U/L ALT (12-78) U/L Alkaline Phosphatase (45-117) U/L Troponin I (0-0.045) ng/ml Total Protein (6.4-8.2) gm/dl Albumin (3.4-5.0) gm/dl Globulin (2.5-4.0) gm/dl Albumin/Globulin Ratio (0.9-2) Urine Color Urine Appearance (Clear) Urine pH (4.5-7.5) Ur Specific [place] (1.000-1.030) Urine Protein (Negative) Urine Glucose (UA) (Negative) Urine Ketones (Negative) Urine Blood (Negative) Urine Nitrite (Negative) Urine Bilirubin (Negative) Urine Urobilinogen (Negative) Ur Leukocyte Esterase (Negative) Nasal Screen MRSA (PCR) Negative (Negative) Stl C. diff Tox B Gene (Neg) 09/29/18 09/29/18 09/29/18 Range/Units 07:26 11:30 16:53 WBC (4.8-10.8) K/uL RBC (4.2-5.4) M/uL Hgb (12.0-16.0) g/dL Hct (37-47) % MCV (80-100) fL MCH (25-34) pg MCHC (32-36) g/dL RDW Std Deviation (36.4-46.3) fL RDW Coeff of Faraz (11.5-14.5) % Plt Count (130-400) K/uL MPV (7.4-10.4) fL Immature Gran % (Auto) % Neut % (Auto) % Lymph % (Auto) % [place] % (Auto) % Eos % (Auto) % Baso % (Auto) % Immature Gran # (Auto) (0.00-0.02) K/uL Neut # (Auto) (1.4-6.5) K/uL Lymph # (Auto) (1.2-3.4) K/uL [place] # (Auto) (0.11-0.59) K/uL Eos # (Auto) (0-0.5) K/uL Baso # (Auto) (0-0.2) K/uL PT (9.0-12.0) Seconds INR (0.9-1.1) APTT (21.0-31.0) Seconds PTT Ratio Sodium (136-145) mmol/L Potassium (3.5-5.1) mmol/L Chloride (98-107) mmol/L Carbon Dioxide (21-32) mmol/L Anion Gap (3-11) BUN (7-18) mg/dl Creatinine (0.6-1.2) mg/dl Est Cr Clr Drug Dosing ml/min Est GFR ( Amer) Est GFR (Non-Af Amer) BUN/Creatinine Ratio (10-20) Glucose (70-99) mg/dl POC Glucose 159 H 117 H 129 H (70-99) POC Lactic Acid Tony (0.90-1.70) mmol/L Calcium (8.5-10.1) mg/dl Magnesium (1.8-2.4) mg/dl Total Bilirubin (0.1-1) mg/dl AST (15-37) U/L ALT (12-78) U/L Alkaline Phosphatase (45-117) U/L Troponin I (0-0.045) ng/ml Total Protein (6.4-8.2) gm/dl Albumin (3.4-5.0) gm/dl Globulin (2.5-4.0) gm/dl Albumin/Globulin Ratio (0.9-2) Urine Color Urine Appearance (Clear) Urine pH (4.5-7.5) Ur Specific [place] (1.000-1.030) Urine Protein (Negative) Urine Glucose (UA) (Negative) Urine Ketones (Negative) Urine Blood (Negative) Urine Nitrite (Negative) Urine Bilirubin (Negative) Urine Urobilinogen (Negative) Ur Leukocyte Esterase (Negative) Nasal Screen MRSA (PCR) (Negative) Stl C. diff Tox B Gene (Neg) 09/29/18 09/30/18 09/30/18 Range/Units 21:01 05:35 05:35 WBC 8.57 (4.8-10.8) K/uL RBC 3.74 L (4.2-5.4) M/uL Hgb 11.5 L (12.0-16.0) g/dL Hct 35.5 L (37-47) % MCV 94.9 (80-100) fL MCH 30.7 (25-34) pg MCHC 32.4 (32-36) g/dL RDW Std Deviation 52.8 H (36.4-46.3) fL RDW Coeff of Faraz 15.4 H (11.5-14.5) % Plt Count 321 (130-400) K/uL MPV 10.0 (7.4-10.4) fL Immature Gran % (Auto) 0.2 % Neut % (Auto) 57.8 % Lymph % (Auto) 27.7 % [place] % (Auto) 9.6 % Eos % (Auto) 4.1 % Baso % (Auto) 0.6 % Immature Gran # (Auto) 0.02 (0.00-0.02) K/uL Neut # (Auto) 4.96 (1.4-6.5) K/uL Lymph # (Auto) 2.37 (1.2-3.4) K/uL [place] # (Auto) 0.82 H (0.11-0.59) K/uL Eos # (Auto) 0.35 (0-0.5) K/uL Baso # (Auto) 0.05 (0-0.2) K/uL PT 12.9 H (9.0-12.0) Seconds INR 1.3 H (0.9-1.1) APTT 52.3 H* (21.0-31.0) Seconds PTT Ratio 2.0 Sodium (136-145) mmol/L Potassium (3.5-5.1) mmol/L Chloride (98-107) mmol/L Carbon Dioxide (21-32) mmol/L Anion Gap (3-11) BUN (7-18) mg/dl Creatinine (0.6-1.2) mg/dl Est Cr Clr Drug Dosing ml/min Est GFR ( Amer) Est GFR (Non-Af Amer) BUN/Creatinine Ratio (10-20) Glucose (70-99) mg/dl POC Glucose 138 H (70-99) POC Lactic Acid Tony (0.90-1.70) mmol/L Calcium (8.5-10.1) mg/dl Magnesium (1.8-2.4) mg/dl Total Bilirubin (0.1-1) mg/dl AST (15-37) U/L ALT (12-78) U/L Alkaline Phosphatase (45-117) U/L Troponin I (0-0.045) ng/ml Total Protein (6.4-8.2) gm/dl Albumin (3.4-5.0) gm/dl Globulin (2.5-4.0) gm/dl Albumin/Globulin Ratio (0.9-2) Urine Color Urine Appearance (Clear) Urine pH (4.5-7.5) Ur Specific [place] (1.000-1.030) Urine Protein (Negative) Urine Glucose (UA) (Negative) Urine Ketones (Negative) Urine Blood (Negative) Urine Nitrite (Negative) Urine Bilirubin (Negative) Urine Urobilinogen (Negative) Ur Leukocyte Esterase (Negative) Nasal Screen MRSA (PCR) (Negative) Stl C. diff Tox B Gene (Neg) 09/30/18 09/30/18 09/30/18 Range/Units 05:35 07:48 11:56 WBC (4.8-10.8) K/uL RBC (4.2-5.4) M/uL Hgb (12.0-16.0) g/dL Hct (37-47) % MCV (80-100) fL MCH (25-34) pg MCHC (32-36) g/dL RDW Std Deviation (36.4-46.3) fL RDW Coeff of Faraz (11.5-14.5) % Plt Count (130-400) K/uL MPV (7.4-10.4) fL Immature Gran % (Auto) % Neut % (Auto) % Lymph % (Auto) % [place] % (Auto) % Eos % (Auto) % Baso % (Auto) % Immature Gran # (Auto) (0.00-0.02) K/uL Neut # (Auto) (1.4-6.5) K/uL Lymph # (Auto) (1.2-3.4) K/uL [place] # (Auto) (0.11-0.59) K/uL Eos # (Auto) (0-0.5) K/uL Baso # (Auto) (0-0.2) K/uL PT (9.0-12.0) Seconds INR (0.9-1.1) APTT (21.0-31.0) Seconds PTT Ratio Sodium 138 (136-145) mmol/L Potassium 4.0 (3.5-5.1) mmol/L Chloride 106 (98-107) mmol/L Carbon Dioxide 24 (21-32) mmol/L Anion Gap 8.0 (3-11) BUN 43 H (7-18) mg/dl Creatinine 1.37 H D (0.6-1.2) mg/dl Est Cr Clr Drug Dosing 62.1 ml/min Est GFR ( Amer) 47.5 Est GFR (Non-Af Amer) 40.9 BUN/Creatinine Ratio 31.3 H (10-20) Glucose 130 H (70-99) mg/dl POC Glucose 126 H 113 H (70-99) POC Lactic Acid Tony (0.90-1.70) mmol/L Calcium 8.5 (8.5-10.1) mg/dl Magnesium (1.8-2.4) mg/dl Total Bilirubin 0.4 (0.1-1) mg/dl AST 45 H (15-37) U/L ALT 35 (12-78) U/L Alkaline Phosphatase 69 (45-117) U/L Troponin I (0-0.045) ng/ml Total Protein 7.6 (6.4-8.2) gm/dl Albumin 2.8 L (3.4-5.0) gm/dl Globulin 4.8 H (2.5-4.0) gm/dl Albumin/Globulin Ratio 0.6 L (0.9-2) Urine Color Urine Appearance (Clear) Urine pH (4.5-7.5) Ur Specific [place] (1.000-1.030) Urine Protein (Negative) Urine Glucose (UA) (Negative) Urine Ketones (Negative) Urine Blood (Negative) Urine Nitrite (Negative) Urine Bilirubin (Negative) Urine Urobilinogen (Negative) Ur Leukocyte Esterase (Negative) Nasal Screen MRSA (PCR) (Negative) Stl C. diff Tox B Gene (Neg) 09/30/18 09/30/18 10/01/18 Range/Units 16:45 20:07 06:51 WBC 9.28 (4.8-10.8) K/uL RBC 3.92 L (4.2-5.4) M/uL Hgb 11.8 L (12.0-16.0) g/dL Hct 37.6 (37-47) % MCV 95.9 (80-100) fL MCH 30.1 (25-34) pg MCHC 31.4 L (32-36) g/dL RDW Std Deviation 54.4 H (36.4-46.3) fL RDW Coeff of Faraz 15.6 H (11.5-14.5) % Plt Count 341 (130-400) K/uL MPV 10.0 (7.4-10.4) fL Immature Gran % (Auto) 0.4 % Neut % (Auto) 57.7 % Lymph % (Auto) 29.1 % [place] % (Auto) 7.9 % Eos % (Auto) 4.1 % Baso % (Auto) 0.8 % Immature Gran # (Auto) 0.04 H (0.00-0.02) K/uL Neut # (Auto) 5.36 (1.4-6.5) K/uL Lymph # (Auto) 2.70 (1.2-3.4) K/uL [place] # (Auto) 0.73 H (0.11-0.59) K/uL Eos # (Auto) 0.38 (0-0.5) K/uL Baso # (Auto) 0.07 (0-0.2) K/uL PT (9.0-12.0) Seconds INR (0.9-1.1) APTT (21.0-31.0) Seconds PTT Ratio Sodium (136-145) mmol/L Potassium (3.5-5.1) mmol/L Chloride (98-107) mmol/L Carbon Dioxide (21-32) mmol/L Anion Gap (3-11) BUN (7-18) mg/dl Creatinine (0.6-1.2) mg/dl Est Cr Clr Drug Dosing ml/min Est GFR ( Amer) Est GFR (Non-Af Amer) BUN/Creatinine Ratio (10-20) Glucose (70-99) mg/dl POC Glucose 114 H 158 H (70-99) POC Lactic Acid Tony (0.90-1.70) mmol/L Calcium (8.5-10.1) mg/dl Magnesium (1.8-2.4) mg/dl Total Bilirubin (0.1-1) mg/dl AST (15-37) U/L ALT (12-78) U/L Alkaline Phosphatase (45-117) U/L Troponin I (0-0.045) ng/ml Total Protein (6.4-8.2) gm/dl Albumin (3.4-5.0) gm/dl Globulin (2.5-4.0) gm/dl Albumin/Globulin Ratio (0.9-2) Urine Color Urine Appearance (Clear) Urine pH (4.5-7.5) Ur Specific [place] (1.000-1.030) Urine Protein (Negative) Urine Glucose (UA) (Negative) Urine Ketones (Negative) Urine Blood (Negative) Urine Nitrite (Negative) Urine Bilirubin (Negative) Urine Urobilinogen (Negative) Ur Leukocyte Esterase (Negative) Nasal Screen MRSA (PCR) (Negative) Stl C. diff Tox B Gene (Neg) 10/01/18 10/01/18 10/01/18 Range/Units 06:51 07:37 11:32 WBC (4.8-10.8) K/uL RBC (4.2-5.4) M/uL Hgb (12.0-16.0) g/dL Hct (37-47) % MCV (80-100) fL MCH (25-34) pg MCHC (32-36) g/dL RDW Std Deviation (36.4-46.3) fL RDW Coeff of Faraz (11.5-14.5) % Plt Count (130-400) K/uL MPV (7.4-10.4) fL Immature Gran % (Auto) % Neut % (Auto) % Lymph % (Auto) % [place] % (Auto) % Eos % (Auto) % Baso % (Auto) % Immature Gran # (Auto) (0.00-0.02) K/uL Neut # (Auto) (1.4-6.5) K/uL Lymph # (Auto) (1.2-3.4) K/uL [place] # (Auto) (0.11-0.59) K/uL Eos # (Auto) (0-0.5) K/uL Baso # (Auto) (0-0.2) K/uL PT (9.0-12.0) Seconds INR (0.9-1.1) APTT (21.0-31.0) Seconds PTT Ratio Sodium 138 (136-145) mmol/L Potassium 4.2 (3.5-5.1) mmol/L Chloride 105 (98-107) mmol/L Carbon Dioxide 25 (21-32) mmol/L Anion Gap 8.0 (3-11) BUN 34 H (7-18) mg/dl Creatinine 1.26 H (0.6-1.2) mg/dl Est Cr Clr Drug Dosing 66.5 ml/min Est GFR ( Amer) 52.5 Est GFR (Non-Af Amer) 45.3 BUN/Creatinine Ratio 26.7 H (10-20) Glucose 113 H (70-99) mg/dl POC Glucose 133 H 140 H (70-99) POC Lactic Acid Tony (0.90-1.70) mmol/L Calcium 9.1 (8.5-10.1) mg/dl Magnesium 2.1 (1.8-2.4) mg/dl Total Bilirubin (0.1-1) mg/dl AST (15-37) U/L ALT (12-78) U/L Alkaline Phosphatase (45-117) U/L Troponin I (0-0.045) ng/ml Total Protein (6.4-8.2) gm/dl Albumin (3.4-5.0) gm/dl Globulin (2.5-4.0) gm/dl Albumin/Globulin Ratio (0.9-2) Urine Color Urine Appearance (Clear) Urine pH (4.5-7.5) Ur Specific [place] (1.000-1.030) Urine Protein (Negative) Urine Glucose (UA) (Negative) Urine Ketones (Negative) Urine Blood (Negative) Urine Nitrite (Negative) Urine Bilirubin (Negative) Urine Urobilinogen (Negative) Ur Leukocyte Esterase (Negative) Nasal Screen MRSA (PCR) (Negative) Stl C. diff Tox B Gene (Neg) 10/01/18 10/01/18 10/01/18 Range/Units 16:46 20:21 21:20 WBC (4.8-10.8) K/uL RBC (4.2-5.4) M/uL Hgb (12.0-16.0) g/dL Hct (37-47) % MCV (80-100) fL MCH (25-34) pg MCHC (32-36) g/dL RDW Std Deviation (36.4-46.3) fL RDW Coeff of Faraz (11.5-14.5) % Plt Count (130-400) K/uL MPV (7.4-10.4) fL Immature Gran % (Auto) % Neut % (Auto) % Lymph % (Auto) % [place] % (Auto) % Eos % (Auto) % Baso % (Auto) % Immature Gran # (Auto) (0.00-0.02) K/uL Neut # (Auto) (1.4-6.5) K/uL Lymph # (Auto) (1.2-3.4) K/uL [place] # (Auto) (0.11-0.59) K/uL Eos # (Auto) (0-0.5) K/uL Baso # (Auto) (0-0.2) K/uL PT (9.0-12.0) Seconds INR (0.9-1.1) APTT (21.0-31.0) Seconds PTT Ratio Sodium (136-145) mmol/L Potassium (3.5-5.1) mmol/L Chloride (98-107) mmol/L Carbon Dioxide (21-32) mmol/L Anion Gap (3-11) BUN (7-18) mg/dl Creatinine (0.6-1.2) mg/dl Est Cr Clr Drug Dosing ml/min Est GFR ( Amer) Est GFR (Non-Af Amer) BUN/Creatinine Ratio (10-20) Glucose (70-99) mg/dl POC Glucose 137 H 153 H (70-99) POC Lactic Acid Tony (0.90-1.70) mmol/L Calcium (8.5-10.1) mg/dl Magnesium (1.8-2.4) mg/dl Total Bilirubin (0.1-1) mg/dl AST (15-37) U/L ALT (12-78) U/L Alkaline Phosphatase (45-117) U/L Troponin I (0-0.045) ng/ml Total Protein (6.4-8.2) gm/dl Albumin (3.4-5.0) gm/dl Globulin (2.5-4.0) gm/dl Albumin/Globulin Ratio (0.9-2) Urine Color Urine Appearance (Clear) Urine pH (4.5-7.5) Ur Specific [place] (1.000-1.030) Urine Protein (Negative) Urine Glucose (UA) (Negative) Urine Ketones (Negative) Urine Blood (Negative) Urine Nitrite (Negative) Urine Bilirubin (Negative) Urine Urobilinogen (Negative) Ur Leukocyte Esterase (Negative) Nasal Screen MRSA (PCR) (Negative) Stl C. diff Tox B Gene Neg C.diff Toxin B (Neg) 10/02/18 10/02/18 10/02/18 Range/Units 05:34 05:34 07:52 WBC 10.88 H (4.8-10.8) K/uL RBC 3.93 L (4.2-5.4) M/uL Hgb 11.8 L (12.0-16.0) g/dL Hct 37.4 (37-47) % MCV 95.2 (80-100) fL MCH 30.0 (25-34) pg MCHC 31.6 L (32-36) g/dL RDW Std Deviation 52.8 H (36.4-46.3) fL RDW Coeff of Faraz 15.3 H (11.5-14.5) % Plt Count 328 (130-400) K/uL MPV 9.7 (7.4-10.4) fL Immature Gran % (Auto) 0.6 % Neut % (Auto) 54.1 % Lymph % (Auto) 31.9 % [place] % (Auto) 8.7 % Eos % (Auto) 4.0 % Baso % (Auto) 0.7 % Immature Gran # (Auto) 0.07 H (0.00-0.02) K/uL Neut # (Auto) 5.87 (1.4-6.5) K/uL Lymph # (Auto) 3.47 H (1.2-3.4) K/uL [place] # (Auto) 0.95 H (0.11-0.59) K/uL Eos # (Auto) 0.44 (0-0.5) K/uL Baso # (Auto) 0.08 (0-0.2) K/uL PT (9.0-12.0) Seconds INR (0.9-1.1) APTT (21.0-31.0) Seconds PTT Ratio Sodium 139 (136-145) mmol/L Potassium 3.7 (3.5-5.1) mmol/L Chloride 107 (98-107) mmol/L Carbon Dioxide 25 (21-32) mmol/L Anion Gap 7.0 (3-11) BUN 30 H (7-18) mg/dl Creatinine 1.15 (0.6-1.2) mg/dl Est Cr Clr Drug Dosing 72.9 ml/min Est GFR ( Amer) 58.6 Est GFR (Non-Af Amer) 50.6 BUN/Creatinine Ratio 26.0 H (10-20) Glucose 107 H (70-99) mg/dl POC Glucose 106 H (70-99) POC Lactic Acid Tony (0.90-1.70) mmol/L Calcium 8.9 (8.5-10.1) mg/dl Magnesium (1.8-2.4) mg/dl Total Bilirubin 0.4 (0.1-1) mg/dl AST 35 (15-37) U/L ALT 41 (12-78) U/L Alkaline Phosphatase 77 (45-117) U/L Troponin I (0-0.045) ng/ml Total Protein 7.2 (6.4-8.2) gm/dl Albumin 2.8 L (3.4-5.0) gm/dl Globulin 4.4 H (2.5-4.0) gm/dl Albumin/Globulin Ratio 0.6 L (0.9-2) Urine Color Urine Appearance (Clear) Urine pH (4.5-7.5) Ur Specific [place] (1.000-1.030) Urine Protein (Negative) Urine Glucose (UA) (Negative) Urine Ketones (Negative) Urine Blood (Negative) Urine Nitrite (Negative) Urine Bilirubin (Negative) Urine Urobilinogen (Negative) Ur Leukocyte Esterase (Negative) Nasal Screen MRSA (PCR) (Negative) Stl C. diff Tox B Gene (Neg) 10/02/18 10/02/18 10/02/18 Range/Units 11:18 17:02 20:16 WBC (4.8-10.8) K/uL RBC (4.2-5.4) M/uL Hgb (12.0-16.0) g/dL Hct (37-47) % MCV (80-100) fL MCH (25-34) pg MCHC (32-36) g/dL RDW Std Deviation (36.4-46.3) fL RDW Coeff of Faraz (11.5-14.5) % Plt Count (130-400) K/uL MPV (7.4-10.4) fL Immature Gran % (Auto) % Neut % (Auto) % Lymph % (Auto) % [place] % (Auto) % Eos % (Auto) % Baso % (Auto) % Immature Gran # (Auto) (0.00-0.02) K/uL Neut # (Auto) (1.4-6.5) K/uL Lymph # (Auto) (1.2-3.4) K/uL [place] # (Auto) (0.11-0.59) K/uL Eos # (Auto) (0-0.5) K/uL Baso # (Auto) (0-0.2) K/uL PT (9.0-12.0) Seconds INR (0.9-1.1) APTT (21.0-31.0) Seconds PTT Ratio Sodium (136-145) mmol/L Potassium (3.5-5.1) mmol/L Chloride (98-107) mmol/L Carbon Dioxide (21-32) mmol/L Anion Gap (3-11) BUN (7-18) mg/dl Creatinine (0.6-1.2) mg/dl Est Cr Clr Drug Dosing ml/min Est GFR ( Amer) Est GFR (Non-Af Amer) BUN/Creatinine Ratio (10-20) Glucose (70-99) mg/dl POC Glucose 154 H 100 H 120 H (70-99) POC Lactic Acid Tony (0.90-1.70) mmol/L Calcium (8.5-10.1) mg/dl Magnesium (1.8-2.4) mg/dl Total Bilirubin (0.1-1) mg/dl AST (15-37) U/L ALT (12-78) U/L Alkaline Phosphatase (45-117) U/L Troponin I (0-0.045) ng/ml Total Protein (6.4-8.2) gm/dl Albumin (3.4-5.0) gm/dl Globulin (2.5-4.0) gm/dl Albumin/Globulin Ratio (0.9-2) Urine Color Urine Appearance (Clear) Urine pH (4.5-7.5) Ur Specific [place] (1.000-1.030) Urine Protein (Negative) Urine Glucose (UA) (Negative) Urine Ketones (Negative) Urine Blood (Negative) Urine Nitrite (Negative) Urine Bilirubin (Negative) Urine Urobilinogen (Negative) Ur Leukocyte Esterase (Negative) Nasal Screen MRSA (PCR) (Negative) Stl C. diff Tox B Gene (Neg) 10/03/18 10/03/18 10/03/18 Range/Units 07:31 11:29 16:18 WBC (4.8-10.8) K/uL RBC (4.2-5.4) M/uL Hgb (12.0-16.0) g/dL Hct (37-47) % MCV (80-100) fL MCH (25-34) pg MCHC (32-36) g/dL RDW Std Deviation (36.4-46.3) fL RDW Coeff of Faraz (11.5-14.5) % Plt Count (130-400) K/uL MPV (7.4-10.4) fL Immature Gran % (Auto) % Neut % (Auto) % Lymph % (Auto) % [place] % (Auto) % Eos % (Auto) % Baso % (Auto) % Immature Gran # (Auto) (0.00-0.02) K/uL Neut # (Auto) (1.4-6.5) K/uL Lymph # (Auto) (1.2-3.4) K/uL [place] # (Auto) (0.11-0.59) K/uL Eos # (Auto) (0-0.5) K/uL Baso # (Auto) (0-0.2) K/uL PT (9.0-12.0) Seconds INR (0.9-1.1) APTT (21.0-31.0) Seconds PTT Ratio Sodium (136-145) mmol/L Potassium (3.5-5.1) mmol/L Chloride (98-107) mmol/L Carbon Dioxide (21-32) mmol/L Anion Gap (3-11) BUN (7-18) mg/dl Creatinine (0.6-1.2) mg/dl Est Cr Clr Drug Dosing ml/min Est GFR ( Amer) Est GFR (Non-Af Amer) BUN/Creatinine Ratio (10-20) Glucose (70-99) mg/dl POC Glucose 103 H 157 H 120 H (70-99) POC Lactic Acid Tony (0.90-1.70) mmol/L Calcium (8.5-10.1) mg/dl Magnesium (1.8-2.4) mg/dl Total Bilirubin (0.1-1) mg/dl AST (15-37) U/L ALT (12-78) U/L Alkaline Phosphatase (45-117) U/L Troponin I (0-0.045) ng/ml Total Protein (6.4-8.2) gm/dl Albumin (3.4-5.0) gm/dl Globulin (2.5-4.0) gm/dl Albumin/Globulin Ratio (0.9-2) Urine Color Urine Appearance (Clear) Urine pH (4.5-7.5) Ur Specific [place] (1.000-1.030) Urine Protein (Negative) Urine Glucose (UA) (Negative) Urine Ketones (Negative) Urine Blood (Negative) Urine Nitrite (Negative) Urine Bilirubin (Negative) Urine Urobilinogen (Negative) Ur Leukocyte Esterase (Negative) Nasal Screen MRSA (PCR) (Negative) Stl C. diff Tox B Gene (Neg) 10/03/18 Range/Units 20:11 WBC (4.8-10.8) K/uL RBC (4.2-5.4) M/uL Hgb (12.0-16.0) g/dL Hct (37-47) % MCV (80-100) fL MCH (25-34) pg MCHC (32-36) g/dL RDW Std Deviation (36.4-46.3) fL RDW Coeff of [place]az (11.5-14.5) % Plt Count (130-400) K/uL MPV (7.4-10.4) fL Immature Gran % (Auto) % Neut % (Auto) % Lymph % (Auto) % [place] % (Auto) % Eos % (Auto) % Baso % (Auto) % Immature Gran # (Auto) (0.00-0.02) K/uL Neut # (Auto) (1.4-6.5) K/uL Lymph # (Auto) (1.2-3.4) K/uL [place] # (Auto) (0.11-0.59) K/uL Eos # (Auto) (0-0.5) K/uL Baso # (Auto) (0-0.2) K/uL PT (9.0-12.0) Seconds INR (0.9-1.1) APTT (21.0-31.0) Seconds PTT Ratio Sodium (136-145) mmol/L Potassium (3.5-5.1) mmol/L Chloride (98-107) mmol/L Carbon Dioxide (21-32) mmol/L Anion Gap (3-11) BUN (7-18) mg/dl Creatinine (0.6-1.2) mg/dl Est Cr Clr Drug Dosing ml/min Est GFR ( Amer) Est GFR (Non-Af Amer) BUN/Creatinine Ratio (10-20) Glucose (70-99) mg/dl POC Glucose 132 H (70-99) POC Lactic Acid Tony (0.90-1.70) mmol/L Calcium (8.5-10.1) mg/dl Magnesium (1.8-2.4) mg/dl Total Bilirubin (0.1-1) mg/dl AST (15-37) U/L ALT (12-78) U/L Alkaline Phosphatase (45-117) U/L Troponin I (0-0.045) ng/ml Total Protein (6.4-8.2) gm/dl Albumin (3.4-5.0) gm/dl Globulin (2.5-4.0) gm/dl Albumin/Globulin Ratio (0.9-2) Urine Color Urine Appearance (Clear) Urine pH (4.5-7.5) Ur Specific [place] (1.000-1.030) Urine Protein (Negative) Urine Glucose (UA) (Negative) Urine Ketones (Negative) Urine Blood (Negative) Urine Nitrite (Negative) Urine Bilirubin (Negative) Urine Urobilinogen (Negative) Ur Leukocyte Esterase (Negative) Nasal Screen MRSA (PCR) (Negative) Stl C. diff Tox B Gene (Neg) Imaging Data Radiologist's Impression: Radiology results as stated below per my review and the radiologist's interpretation: XR chest 1V portable CLINICAL HISTORY: 63 years-old Female presenting with fever/chills. TECHNIQUE: Portable semiupright AP view of the chest was obtained. COMPARISON: 10/23/2014. FINDINGS: Cardiac silhouette mildly enlarged with pulmonary vascular prominence. Prominence of pulmonary lung markings at the lung bases, most likely related to vascular prominence. No focal opacity. No pleural effusion or pneumothorax. Degenerative changes of the right glenohumeral joint. Upper abdomen normal. IMPRESSION: 1. Cardiomegaly with volume overload. No convincing focal infiltrate to suggest pneumonia. Prominence of lung markings at the lung bases, most likely vascular in etiology. Electronically signed by: Gustavo Chavez M.D. 09/28/2018 4:28 PM XR foot RT min 3V routine CLINICAL HISTORY: 63 years-old Female presenting with leg infection. TECHNIQUE: Frontal, oblique, and lateral views of the right foot were obtained. COMPARISON: 04/17/2014. FINDINGS: Osteopenia. Irregularity of the soft tissues along the medial aspect of the first toe may suggest laceration or ulceration. No subjacent osseous erosion. Chronic cortical deformity at the medial aspect of the neck of the second metatarsal, unchanged from prior. Osseous fragmentation of the medial and dorsal aspects of the navicular. Prominent enthesophytes at the insertion of the Achilles tendon and origin of the plantar fascia. Allowing for osteopenia, no acute fracture or malalignment. Diffuse skin thickening and subcutaneous edema throughout the foot and ankle. IMPRESSION: 1. Osseous fragmentation at the medial and dorsal aspects of the navicular. This may represent small chip or avulsion fractures versus degenerative change. Correlate with point tenderness. 2. Nonspecific diffuse subcutaneous edema and skin thickening. Correlate clinically for sialitis. This may represent edema or venous stasis. 3. Possible laceration or ulceration at the medial aspect of the right first toe. No subjacent osseous abnormality. 4. Allowing for osteopenia, no osseous erosion a periosteal reaction to suggest osteomyelitis. Electronically signed by: Gustavo Chavez M.D. 09/28/2018 4:41 PM XR tibia fibula RT 2V CLINICAL HISTORY: 63 years-old Female presenting with leg infection. TECHNIQUE: Frontal and lateral views of the right lower leg were obtained. COMPARISON: Correlation made to plain radiographs of the right ankle from 2014. FINDINGS: Diffuse subcutaneous edema with skin thickening. Osteopenia. Allowing for osteopenia, no focal osseous erosion or periosteal reaction. Knee joint and ankle mortise grossly congruent. No acute fracture or malalignment. Prominent enthesophyte at the insertion of the Achilles tendon. Os trigonum noted. No soft tissue emphysema. IMPRESSION: 1. Diffuse subcutaneous edema with skin thickening. Correlate clinically for cellulitis. Allowing for osteopenia, no convincing radiographic evidence of osteomyelitis. Electronically signed by: Gustavo Chavez M.D. 09/28/2018 4:29 PM ECG Data Attestation: I personally reviewed and interpreted this ECG as follows: Indication: other (electrolyte abnormalities) Rate (beats per minute): 105 Rhythm: atrial fibrillation Findings: + other (normal QRS and QTC intervals) and + left axis deviation; no acute ischemic change Blood Pressure Blood Pressure Findings: Normal blood pressure MDM Narrative Obviously RLE cellulitis with concern for evolving infection in a morbidly obese DM female. Elevated HR noted here. Pt describes rigors at home recently. New ARF noted. Pt started on gental hydration. No exam or radiographic findings of necrotising fasciitis or osteomyelitis although pt at risk for both. Pt started on IV antibiotics prior to labs and xrays being complete. BP otw stable. Blood cultures drawn, lactic acid reassuring. IVF started. Pt aware of all results and agreeable with plan. CAse discussed with hospitalist service for additional evalaution and mgmt. Pt rechecked multiple times while in the ER. Impression & Plan Cellulitis of right lower extremity, Afib, Acute kidney injury, Obesity, Acute hyperglycemia Discharge Plan Visit Data *Final* Discharge Date/Time: 09/28/18 19:23 Chief Complaint: Leg Injury/Pain Stated Complaint: POSSIBLE DVT, RIGHT LEG ED Provider: Margarita Lopez Discharge Problem: Cellulitis of right lower extremity, Afib, Acute kidney injury, Obesity, Acute hyperglycemia Patient Disposition: Admitted As Inpatient Condition: Fair Discharge Instructions Interventions: ED Discharge Assessment Last Done: 09/28/18 19:23 The scribe's documentation has been prepared under my direction and personally reviewed by me in its entirety. I confirm that the note above accurately reflects all work, treatment, procedures, and medical decision making performed by me.
[2018-10-04] MEDS: PIPERACILLIN/TAZOBACTAM 4.5 GM in DEXTROSE 5% 100 ML IV SCH ×2 (02:19→10:26)
[2018-10-04] MEDS: ACETAMINOPHEN 500 MG TAB PO SCH ×3 (05:49→22:02)
[2018-10-04] MEDS: LEVOTHYROXINE SODIUM 112 MCG TABLET PO SCH (05:49)
[2018-10-04 06:50] LABS: Hematocrit (blood only) 38.1 % (37-47); Mean Corpuscular Hgb Conc 31.5 g/dL (32-36); Mean Platelet Volume 9.9 fL (7.4-10.4); Platelet Count 334 K/uL (130-400); RDW Coefficient of Variation 15.3 % (11.5-14.5); RDW Standard Deviation 53.5 fL (36.4-46.3); Red Blood Count 4.01 M/uL (4.2-5.4); White Blood Count 10.06 K/uL (4.8-10.8)
[2018-10-04 07:20] LABS: BUN Creatinine Ratio 27.9 (10-20); Calcium 8.7 mg/dl (8.5-10.1); Creatinine Clr Calc Pharmacy 83.9 ml/min; Est GFR (African American) 69.4; Est GFR (Non-African American) 59.9; Potassium 3.5 mmol/L (3.5-5.1)
[2018-10-04] MEDS: FUROSEMIDE 40 MG TAB PO SCH (08:02)
[2018-10-04] MEDS: FLUTICASONE/SALMETEROL 250/50 (ADVAIR) 14 PUFF/1 INHALER INH SCH ×2 (08:02→21:48)
[2018-10-04] MEDS: IPRATROPIUM BROMIDE/ALBUTEROL respimat INH INH SCH ×4 (08:02→21:48)
[2018-10-04] MEDS: FLUCONAZOLE 100 MG TAB PO SCH (08:03)
[2018-10-04] MEDS: dilTIAZem ER 120 MG CAPCR PO SCH (08:03)
[2018-10-04] MEDS: ASPIRIN 81 MG ECTAB PO SCH (08:03)
[2018-10-04] MEDS: ATORVASTATIN 40 MG TAB PO SCH (08:03)
[2018-10-04] MEDS: GABAPENTIN 600 MG TAB PO SCH ×2 (08:04→21:53)
[2018-10-04] MEDS: GEMFIBROZIL 600 MG TAB PO SCH ×2 (08:04→21:49)
[2018-10-04] MEDS: METOPROLOL TARTRATE 25 MG TAB PO SCH ×2 (08:04→21:53)
[2018-10-04] MEDS: ALLOPURINOL 100 MG TAB PO SCH ×2 (08:04→21:50)
[2018-10-04] MEDS: DABIGATRAN ETEXILATE 75 MG CAP PO SCH ×2 (08:05→21:51)
[2018-10-04] MEDS: INSULIN GLARGINE SOLOSTAR 100 UNITS/ML 3 ML PEN SC SCH ×2 (08:06→21:55)
[2018-10-04] MEDS: INSULIN ASPART 100 UNITS/ML 3 ML PEN SC SCH ×4 (08:07→21:54)
[2018-10-04] MEDS: SILVER SULFADIAZINE 1% CR 50 GM JAR TOP SCH (08:08)
--- NOTE | 2018-10-04 15:08 | Hospitalist Progress Note ---
Date of Service October 04, 2018 Assessment & Plan (1) Cellulitis of right lower extremity: Right lower extremity cellulitis is improved after addition of Diflucan to Zosyn regimen 2 days ago. Zosyn began 09/28. The patient's wound is closed today and appears to be stage II. She reports an improvement in her pain and is afebrile without chills. Blood cultures are negative today. Zosyn was switched to Augmentin today and if she is stable and afebrile overnight, will likely DC to home in the morning. (2) Atrial fibrillation: Rate controlled with metoprolol 25 p.o. twice daily and diltiazem XR 360 mg which was decreased to 120 mg every morning. Diltiazem dose was increased to 240 after telemetry review revealed multiple spikes overnight. Continue anticoagulation with Pradaxa. (3) T2DM (type 2 diabetes mellitus): Glucose at goal, continue Lantus and NovoLog with sliding scale and carb coverage while inpatient. (4) HTN (hypertension): Home valsartan/hydrochlorothiazide 320-25 mg p.o. daily was held on admission in setting of AK I. She continues on Lasix 40 mg p.o. every morning which is also a home medication for her. We will continue holding this medicine as blood pressure is low normal (5) Hypothyroid: -continue levothyroxine (6) COPD (chronic obstructive pulmonary disease): -no acute exacerbation -continue combivent, advair (7) NAVI (obstructive sleep apnea): -noncompliant with CPAP at HS (8) Morbid obesity: -Obesity with BMI of 57.5 -heart healthy, diabetic diet -PT/OT (9) DVT prophylaxis: -continue pradaxa as home dose 150 mg BID Full code Disposition-plan for home when medically stable. Sola Harris DO [facility] hospitalist Subjective 63-year-old diabetic female presents with right lower extremity cellulitis not improved after multiple outpatient rounds of antibiotics. Resolution of pain in the leg. Denies fevers or chills. Tolerating PO. Ambulating around the room. Physical Exam 2 Vital Signs (Past 24 Hours): Last Vital Signs Temp 36.6 C 10/04/18 07:41 Pulse 78 10/04/18 07:41 Resp 18 10/04/18 07:41 BP 114/66 10/04/18 07:41 Pulse Ox 93 10/04/18 07:41 CONSTITUTIONAL: obese, vitals as above, generally well-appearing EYES: normal conjuctivae, no scleral icterus ENT: MMM RESPIRATORY: clear to auscultation bilaterally, no crackles, rales or wheezes, normal respiratory effort CARDIOVASCULAR: irregular rate and irreg rhythm, S1 and 2 heard without murmurs , gallops or rubs GASTROINTESTINAL: very large protuberant abdomen with very large pannus that is disproportionately larger than her extremities. Normal bowel sounds, soft, nontender MUSCULOSKELETAL: strength 5/5 throughout, head is normocephalic and atraumatic , SKIN: warm and dry, cellulitis continues to improve with diffuse pink area today. Posterior right lower extremity wound that is stage II ulceration and is closed. Some serosanguineous drainage is coming from the wound.. NEUROLOGIC: CN 2-12 grossly intact, normal cognition, normal speech PSYCHIATRIC: alert cooperative and oriented to person, place and time. Results & Data Laboratory Results Short CBC 10/04/18 Range/Units 06:37 WBC 10.06 (4.8-10.8) K/uL Hgb 12.0 (12.0-16.0) g/dL Hct 38.1 (37-47) % Plt Count 334 (130-400) K/uL BMP 10/04/18 06:37 Sodium 139 Potassium 3.5 Chloride 108 H Carbon Dioxide 23 BUN 28 H Creatinine 1.00 Glucose 144 H Calcium 8.7 Medications Administered Current Inpatient Medications Acetaminophen (Tylenol) 1,000 mg PO Q8 [facility] Stop: 11/01/18 22:59 Last Admin: 10/04/18 22:02 Dose: 1,000 mg Albuterol (Combivent Respimat) 1 puffs INH QID [facility] Stop: 10/28/18 20:59 Last Admin: 10/04/18 21:48 Dose: 1 puffs Allopurinol (Zyloprim) 100 mg PO BID [facility] Stop: 10/28/18 20:59 Last Admin: 10/04/18 21:50 Dose: 100 mg Amoxicillin/Clavulanate Potassium (Augmentin 875mg) 1 tab PO BIDM [facility]; Protocol Stop: 10/14/18 16:59 Last Admin: 10/04/18 18:02 Dose: 1 tab Aspirin (Ecotrin) 81 mg PO DAILY [facility] Stop: 10/29/18 08:59 Last Admin: 10/04/18 08:03 Dose: 81 mg Atorvastatin Calcium (Lipitor) 40 mg PO DAILY [facility] Stop: 10/29/18 08:59 Last Admin: 10/04/18 08:03 Dose: 40 mg Dabigatran (Pradaxa) 150 mg PO BID [facility] Stop: 10/29/18 20:59 Last Admin: 10/04/18 21:51 Dose: 150 mg Dextrose (Dextrose 50%) 25 - 50 ml IV UD PRN; Protocol PRN Reason: Hypoglycemia Protocol Stop: 10/28/18 19:59 Diltiazem HCl (Tiazac) 240 mg PO QAM [facility] Stop: 11/03/18 08:59 Last Admin: 10/04/18 08:03 Dose: 240 mg Diphenhydramine HCl (Benadryl) 25 mg PO HS PRN PRN Reason: Insomnia Stop: 10/29/18 05:43 Fluconazole (Diflucan) 100 mg PO QAM [facility] Stop: 10/16/18 13:29 Last Admin: 10/04/18 08:03 Dose: 100 mg Furosemide (Lasix) 40 mg PO QAM [facility] Stop: 10/30/18 13:44 Last Admin: 10/04/18 08:02 Dose: 40 mg Gabapentin (Neurontin) 600 mg PO BID [facility] Stop: 10/28/18 20:59 Last Admin: 10/04/18 21:53 Dose: 600 mg Gemfibrozil (Lopid) 600 mg PO BID [facility] Stop: 10/28/18 20:59 Last Admin: 10/04/18 21:49 Dose: 600 mg Glucagon (Glucagen) 1 mg SQ UD PRN; Protocol PRN Reason: Hypoglycemia Protocol Stop: 10/28/18 19:59 Glucose (Glucose 40%) 15 - 30 gm PO UD PRN; Protocol PRN Reason: Hypoglycemia Protocol Stop: 10/28/18 19:59 Glucose (Dex4 Glucose) 4 - 8 tabs PO UD PRN; Protocol PRN Reason: Hypoglycemia Protocol Stop: 10/28/18 19:59 Insulin Aspart (Novolog Flexpen) 0 units SC ACHS [facility] Stop: 10/28/18 20:59 Last Admin: 10/04/18 21:54 Dose: Not Given Insulin Glargine (Lantus Solostar Pen) 30 units SC Q12 [facility] Stop: 10/31/18 20:59 Last Admin: 10/04/18 21:55 Dose: 30 units Levothyroxine Sodium (Synthroid) 112 mcg PO DAILYBB [facility] Stop: 10/29/18 06:29 Last Admin: 10/04/18 05:49 Dose: 112 mcg Metoprolol Tartrate (Lopressor) 25 mg PO BID [facility] Stop: 10/28/18 20:59 Last Admin: 10/04/18 21:53 Dose: 25 mg Miscellaneous (Carbohydrates For Hypoglycemia) 15 - 30 gm PO UD PRN PRN Reason: Hypoglycemia Treatment Stop: 10/28/18 19:59 Miscellaneous (Order Awaiting Action) 1 ea N/A QS [facility] Stop: 10/29/18 00:00 Last Admin: 10/04/18 16:43 Dose: Not Given Ondansetron HCl (Zofran) 4 mg IV Q6H PRN PRN Reason: Nausea Stop: 10/28/18 19:59 Polyethylene Glycol (Miralax Powder Packet) 17 gm PO DAILY PRN PRN Reason: Constipation Stop: 10/28/18 19:59 Fluticasone/Salmeterol (Advair Diskus 250/50) 1 puffs INH Q12H [facility] Stop: 10/28/18 20:59 Last Admin: 10/04/18 21:48 Dose: 1 puffs Silver Sulfadiazine (Silvadene 1% 50gm) 1 appln TOP DAILY [facility] Stop: 10/29/18 08:59 Last Admin: 10/04/18 08:08 Dose: 1 appln _ (1) T2DM (type 2 diabetes mellitus) Chronic kidney disease stage: Diabetes mellitus complication detail: with other skin complication Diabetes mellitus complication status: with skin complications Diabetes mellitus long term care pharmacist insulin use: with nursing home use Diabetes mellitus macular edema: Diabetic retinopathy severity: Laterality: Proliferative retinopathy type: Qualified Code(s): E11.628 - Type 2 diabetes mellitus with other skin complications; Z79.4 - care home (current) use of insulin (2) Atrial fibrillation Atrial fibrillation type: chronic Qualified Code(s): I48.2 - Chronic atrial fibrillation (3) Hypothyroid Hypothyroidism type: unspecified Qualified Code(s): E03.9 - Hypothyroidism, unspecified (4) COPD (chronic obstructive pulmonary disease) COPD type: unspecified COPD Chronic bronchitis type: Emphysema type: Qualified Code(s): J44.9 - Chronic obstructive pulmonary disease, unspecified (5) HTN (hypertension) Hypertension type: essential hypertension Qualified Code(s): I10 - Essential (primary) hypertension
[2018-10-04] MEDS: AMOXICILLIN/CLAVULANATE 875 MG TAB PO SCH (18:02)
[2018-10-05] MEDS: ACETAMINOPHEN 500 MG TAB PO SCH ×2 (05:53→13:19)
[2018-10-05] MEDS: LEVOTHYROXINE SODIUM 112 MCG TABLET PO SCH (05:53)
[2018-10-05 07:39] VITALS: BP 118/77; PULSE 77; TEMP 97.9; O2SAT 95
[2018-10-05] MEDS: AMOXICILLIN/CLAVULANATE 875 MG TAB PO SCH (08:23)
[2018-10-05] MEDS: METOPROLOL TARTRATE 25 MG TAB PO SCH (08:24)
[2018-10-05] MEDS: INSULIN GLARGINE SOLOSTAR 100 UNITS/ML 3 ML PEN SC SCH (08:24)
[2018-10-05] MEDS: FLUTICASONE/SALMETEROL 250/50 (ADVAIR) 14 PUFF/1 INHALER INH SCH (08:24)
[2018-10-05] MEDS: FUROSEMIDE 40 MG TAB PO SCH (08:24)
[2018-10-05] MEDS: FLUCONAZOLE 100 MG TAB PO SCH (08:24)
[2018-10-05] MEDS: GABAPENTIN 600 MG TAB PO SCH (08:24)
[2018-10-05] MEDS: GEMFIBROZIL 600 MG TAB PO SCH (08:24)
[2018-10-05] MEDS: DABIGATRAN ETEXILATE 75 MG CAP PO SCH (08:24)
[2018-10-05] MEDS: ASPIRIN 81 MG ECTAB PO SCH (08:24)
[2018-10-05] MEDS: IPRATROPIUM BROMIDE/ALBUTEROL respimat INH INH SCH ×2 (08:24→13:19)
[2018-10-05] MEDS: ATORVASTATIN 40 MG TAB PO SCH (08:24)
[2018-10-05] MEDS: ALLOPURINOL 100 MG TAB PO SCH (08:25)
[2018-10-05] MEDS: dilTIAZem ER 120 MG CAPCR PO SCH (08:25)
[2018-10-05] MEDS: SILVER SULFADIAZINE 1% CR 50 GM JAR TOP SCH (08:25)
[2018-10-05] MEDS: INSULIN ASPART 100 UNITS/ML 3 ML PEN SC SCH ×2 (08:26→13:20)
--- NOTE | 2018-10-12 14:04 | Discharge Summary ---
Date of Service October 12, 2018 Admission HPI Per Admitting Provider This is a 63-year-old white female who has a significant past medical history of morbid obesity, chronic atrial fibrillation, T2 DM, HTN, HLD, diabetic neuropathy, COPD, NAVI noncompliant with CPAP, hypothyroidism, gout, GERD, depression who presents to [facility] secondary to right lower extremity redness, swelling, pain times 2 weeks. On 09/15 patient initially presented to outpatient clinic, diagnosed with right lower extremity cellulitis and prescribed Bactrim DS twice daily times 10 days. She completed full course without relief. Redness initially started on right foot and has now extended up toward right knee. Further she has been experiencing chills, poor appetite for the past 2-3 days, pain with difficulty ambulating. She denies documented fever, sweats, lightheadedness, dizziness, chest pain, palpitations, shortness of breath, nausea, vomiting, diarrhea or abdominal pain. She notes decreased urination secondary to poor p.o. intake but otherwise denies dysuria, hematuria or increased urgency. She does have chronic left great and third toe callus/wounds when she follows with [facility] podiatry and is due for biopsy to left great toe in 2 weeks. Further she has chronic purulent productive cough secondary to COPD. Admission Exam Per Admitting Provider Gen: Morbidly obese, female, sitting up in bed, pleasant, conversing easily Head: Normocephalic, Atraumatic Eyes: Sclera normal, no conjunctival injection, PERRLA, EOMI ENT: Gross hearing intact, normal pharynx, mucous membranes dry Neck: supple, no adenopathy, No JVD, no bruit, Resp: Clear to auscultation b/l, no wheeze, rales, rhonchi. Normal insp/exp effort, no accessory muscle use CV: irregular rate, irregular rhythm, no murmur, rub, gallop, or ectopy Abd: Central obesity, distended abdomen secondary to obesity, striae, firm, +BS x 4, nontender, Musculoskeletal: moves extremities active rom x 4, decreased ROM to b/l lower ext given obesity, cellulitis good stoner hand strength Extremities: Obese lower extremities, no mellisa edema, RLE with circumferential erythema extending from foot proximally to below right knee, warm to touch, blanching with right great toe open callus. Right medial malleolar draining wound with spongy wound bed. Left great toe and third toe callus with wound associated. Skin: warm, moist, no rash, negative turgor, cap refill < 2sec Neuro: Alert and oriented x 3, speech normal, good mood/affect, cran nerve 2-12 intact grossly : deferred Principal Diagnosis RLE cellulitis 2/2 Winnie Diabetic leg wound Discharge Exam CONSTITUTIONAL: obese, vitals as above, generally well-appearing EYES: normal conjuctivae, no scleral icterus ENT: MMM RESPIRATORY: clear to auscultation bilaterally, no crackles, rales or wheezes, normal respiratory effort CARDIOVASCULAR: irregular rate and irreg rhythm, S1 and 2 heard without murmurs , gallops or rubs GASTROINTESTINAL: very large protuberant abdomen with very large pannus that is disproportionately larger than her extremities. Normal bowel sounds, soft, nontender MUSCULOSKELETAL: strength 5/5 throughout, head is normocephalic and atraumatic , SKIN: warm and dry, cellulitis continues to improve Posterior right lower extremity wound that is stage II ulceration and is mostly closed. Some serosanguineous drainage is coming from the wound.. NEUROLOGIC: CN 2-12 grossly intact, normal cognition, normal speech PSYCHIATRIC: alert cooperative and oriented to person, place and time. Discharge Data Allergies Allergy/AdvReac Type Severity Reaction Status Date / Time GIN Inhibitors Allergy Unknown UNK Verified 09/28/18 16:24 cat dander Allergy Unknown UNK Verified 09/28/18 16:24 codeine Allergy Unknown "CODEINE Verified 09/28/18 16:24 DERIVATIVES" hydrocodone Allergy Unknown unknown Unverified 09/28/18 16:24 meperidine Allergy Unknown _ Verified 09/28/18 16:24 morphine Allergy Unknown "MORPHINE Verified 09/28/18 16:24 DERIVATIVES", MORPHINE IS OK pioglitazone Allergy Unknown UNK Verified 09/28/18 16:24 nickel AdvReac Rash Verified 09/28/18 18:39 Cockroach Allergy Unknown UNK Uncoded 09/28/18 16:24 Dust Allergy Unknown UNK Uncoded 09/28/18 16:24 Unclassified Drugs Allergy Unknown "ALLERGIC Uncoded 09/28/18 16:24 TO TREES" Consultations 09/28/18 17:23 ED Decision to Admit Stat 09/28/18 20:00 Consult Case Management - Discharge Planning Routine Ordered Studies 09/29/18 07:59 US venous doppler LE Routine Hospital Course (1) Cellulitis of right lower extremity: (2) Leg wound, right: (3) Atrial fibrillation: (4) T2DM (type 2 diabetes mellitus): (5) HTN (hypertension): (6) Hypothyroid: (7) COPD (chronic obstructive pulmonary disease): (8) NAVI (obstructive sleep apnea): (9) Morbid obesity: 63-year-old female who presented to the ER with fevers and chills as well as right leg pain. She felt her right lower leg had an infection that was worsening for the last 4 days, and notably had been on a course of Bactrim for the last 10 days. She is a diabetic, admitting to higher than usual blood sugar readings at home despite poor oral intake. On arrival to the ER she was afebrile, slightly hypotensive and tachycardic. She was oxygenating 93% on room air with blood cell count was mildly elevated at 16.34. BMP revealed AK I with a creatinine of 2.1. Glucose was 107. INR was 1.9 on Pradaxa for atrial fibrillation. Chest x-ray was performed with presence of fevers and chills revealing cardiomegaly with volume overload. No convincing focal infiltrate was present to suggest pneumonia. There was prominence of lung markings at the bases most likely vascular in etiology. An x-ray of the right foot was performed revealing osseous fragmentation at the medial and dorsal aspects of the navicular. This was thought to represent a small chip or avulsion fracture versus degenerative change. Nonspecific diffuse subcutaneous edema and skin thickening was seen consistent with edema or venous stasis. There was no osseous erosion or periosteal reaction to suggest osteomyelitis. EKG revealed A. fib with a rate of 105 and left task axis deviation. No acute ischemic changes noted. She was admitted to the hospitalist service for a diabetic right lower extremity cellulitis. She was started on IV Zosyn after receiving Rocephin in the ER. She continued to improve over the next several days on IV antibiotic returned showing Winnie albicans from her posterior right lower leg and she was placed on Diflucan. Significant improvement was seen the following day and she was continued on this with continued improvement. Her wound closed over her wound which appear to be a stage II ulcerative wound closed over and clear drainage slowed. She was sent home in stable condition with an improving wound and cellulitis on antibiotic and antifungal therapy. Close primary care follow-up was recommended. Additionally, her valsartan HCTZ was held at discharge for low normal blood pressures as inpatient. Moreover, physical exam revealed bilateral fungating calluses for which she will need to follow-up with podiatry and wound care. This was discussed with the patient and placed on discharge instructions. Total Time Total Time Spent Total Time Spent (In Minutes): 60 Total Time Includes: Examination of the Patient, Discharge Planning, Medication Reconciliation and Communication With Other Providers Discharge Plan Discharge Items Patient Disposition: Home - Self-Care Reason For Visit: CELLULITIS FAILED OUTPATIENT THERAPY Discharge Diagnosis: RLE cellulitis 2/2 Winnie Diabetic leg wound Condition: Good Discharge Goals: Decrease discomfort Activity: Resume your previous activity Non-emergency contact: Primary Care Provider Call non-emergency contact if: you have any medication questions, your symptoms worsen, your pain is not controlled and you have a fever Follow-up/Referrals: Mohsen Vazquez M.D. [Primary Care Provider] - Diet: Carb Consistent or DM2 and Heart Healthy Addtl Provider Instructions: Please take all medications as instructed on discharge list. Your VALSARTAN-HCTZ has been held at discharge but may need to be added back at half or full dose within the week. This was held for low normal blood pressure readings in the hospital. Please have a blood pressure check on primary care follow-up next week. Please follow wound care procedures per nursing instructions. You have a follow-up appointment: PRIMARY CARE Date & Time 10/11/2018 1:00 PM Provider Mohsen Vazquez MD Department Family Practice [facility] PODIATRY Date & Time 10/19/2018 3:00 PM Provider Rafaela Jean DPM Department Podiatry [facility] It was a pleasure taking care of you! Please call if you have any questions or problems. You can reach a [facility] hospitalist on duty at [facility] 24 hours a day by calling [phone]. Take care of yourself. Sola Harris, DO [facility] Hospitalist Prescriptions: New fluconazole 100 mg Tablet 100 mg PO QAM 10 Days Qty: 10 RF: 0 Continue furosemide 40 mg Tablet 40 mg PO DAILY RF: 0 atorvastatin 40 mg Tablet 40 mg PO DAILY RF: 0 silver sulfadiazine 1 % Cream 1 applic TOPICAL DAILY RF: 0 fluticasone-salmeterol [Advair Diskus] 250-50 mcg/dose Blister With Device 1 inh INHALATION Q12H RF: 0 gabapentin 600 mg Tablet 600 mg PO BID RF: 0 diltiazem HCl 360 mg capsule,extended release 24 hr 360 mg PO DAILY RF: 0 allopurinol 100 mg Tablet 100 mg PO BID RF: 0 aspirin [Aspirin Low Dose] 81 mg Tablet,Delayed Release (Dr/Ec) 81 mg PO DAILY RF: 0 benzonatate 100 mg Capsule 100 mg PO TID PRN (Reason: Cough) RF: 0 gemfibrozil 600 mg Tablet 600 mg PO BID RF: 0 mometasone 50 mcg/actuation [place],Non-Aerosol 2 spray INTRANASAL DAILY RF: 0 levothyroxine 112 mcg Tablet 112 mcg PO DAILY RF: 0 insulin lispro [Humalog KwikPen Insulin] 100 unit/mL Insulin Pen 35 unit SUBCUT QAM RF: 0 insulin lispro [Humalog KwikPen Insulin] 100 unit/mL Insulin Pen 30 unit SUBCUT QPM RF: 0 insulin lispro [Humalog KwikPen Insulin] 100 unit/mL Insulin Pen 15 unit SUBCUT DAILY RF: 0 metoprolol tartrate 25 mg Tablet 25 mg PO BID RF: 0 insulin glargine [Lantus Solostar U-100 Insulin] 100 unit/mL (3 mL) Insulin Pen 70 unit SUBCUT DAILY RF: 0 dabigatran etexilate [Pradaxa] 150 mg Capsule 150 mg PO BID RF: 0 empagliflozin 25 mg Tablet 25 mg PO DAILY RF: 0 ipratropium-albuterol 20-100 mcg/actuation mist 1 puff Inhalation DAILY RF: 0 ipratropium-albuterol 20-100 mcg/actuation Mist 1 puff INHALATION QID RF: 0 Discontinued valsartan-hydrochlorothiazide 320-25 mg tablet 1 tab PO DAILY RF: 0 Visit Report Forms: [facility] Stand-Alone Forms: [facility] Discharge Orders: Discharge Order (Routine); Ordered 10/05/18 Ordered By: Sola Harris Admission Data Admit Date/Time: 09/28/18 18:07 Attending Provider: Sola Harris Admit Provider: Nicolas Hoffmann Primary Care Provider: Mohsen Vazquez Other Providers: Nicolas Hoffmann Service: Telemetry Other Interventions: Discharge Summary Assessment (RN) Last Done: 10/05/18 13:06 DC Date/Time DO NOT enter until pt leaves facility: 10/05/18 15:15
== END 2018-10-05 15:15 | disposition home or self-care (01) | DRG 603 ==
LOC: ED 15:24 → 2N 18:07 → SUATTDRO 18:07 → 2N 19:23
DX: G47.33 Obstructive sleep apnea (adult) (pediatric); Z90.49 Acquired absence of other specified parts of digestive tract; Z68.43 Body mass index [BMI] 50.0-59.9, adult; E66.01 Morbid (severe) obesity due to excess calories; M10.9 Gout, unspecified; E03.9 Hypothyroidism, unspecified; I12.9 Hypertensive chronic kidney disease with stage 1 through stage 4 chronic kidney disease, or unspecified chronic kidney disease; L03.115 Cellulitis of right lower limb; E11.40 Type 2 diabetes mellitus with diabetic neuropathy, unspecified; Z82.49 Family history of ischemic heart disease and other diseases of the circulatory system; N17.9 Acute kidney failure, unspecified; B37.9 Candidiasis, unspecified; Z88.5 Allergy status to narcotic agent; Z79.82 Long term (current) use of aspirin; E78.5 Hyperlipidemia, unspecified; J44.9 Chronic obstructive pulmonary disease, unspecified; F32.9 Major depressive disorder, single episode, unspecified; E11.65 Type 2 diabetes mellitus with hyperglycemia; K21.9 Gastro-esophageal reflux disease without esophagitis; Z87.891 Personal history of nicotine dependence; N18.3 Chronic kidney disease, stage 3 (moderate); Z79.4 Long term (current) use of insulin; I48.2 Chronic atrial fibrillation

== ENCOUNTER 2018-12-09 09:28 | Inpatient (IN) ==
--- NOTE | 2018-12-09 09:50 | Emergency Department Note ---
Entered by Myles Nino acting as a scribe for Garett Mckeon MD History of Present Illness General Chief complaint: Fall Stated complaint: fall/ facial swelling&bruising History of Present Illness Maximum Pain Intensity: 5 Home Medications Home Medications Medication Instructions Recorded Confirmed Type allopurinol 100 mg PO BID 09/28/18 09/28/18 History aspirin [Aspirin Low Dose] 81 mg PO DAILY 09/28/18 09/28/18 History atorvastatin 40 mg PO DAILY 09/28/18 09/28/18 History benzonatate 100 mg PO TID PRN 09/28/18 09/28/18 History dabigatran etexilate [Pradaxa] 150 mg PO BID 09/28/18 09/28/18 History diltiazem HCl 360 mg PO DAILY 09/28/18 09/28/18 History empagliflozin 25 mg PO DAILY 09/28/18 09/28/18 History fluticasone-salmeterol [Advair 1 inh INHALATION Q12H 09/28/18 09/28/18 History Diskus] furosemide 40 mg PO DAILY 09/28/18 09/28/18 History gabapentin 600 mg PO BID 09/28/18 09/28/18 History gemfibrozil 600 mg PO BID 09/28/18 09/28/18 History insulin glargine [Lantus Solostar 70 unit SUBCUT DAILY 09/28/18 09/28/18 History U-100 Insulin] insulin lispro [Humalog KwikPen 15 unit SUBCUT DAILY 09/28/18 09/28/18 History Insulin] insulin lispro [Humalog KwikPen 30 unit SUBCUT QPM 09/28/18 09/28/18 History Insulin] insulin lispro [Humalog KwikPen 35 unit SUBCUT QAM 09/28/18 09/28/18 History Insulin] ipratropium-albuterol 1 puff INHALATION DAILY 09/28/18 09/28/18 History ipratropium-albuterol 1 puff INHALATION QID 09/28/18 09/28/18 History levothyroxine 112 mcg PO DAILY 09/28/18 09/28/18 History metoprolol tartrate 25 mg PO BID 09/28/18 09/28/18 History mometasone 2 spray INTRANASAL DAILY 09/28/18 09/28/18 History silver sulfadiazine 1 applic TOPICAL DAILY 09/28/18 09/28/18 History Allergies Allergy/AdvReac Type Severity Reaction Status Date / Time GIN Inhibitors Allergy Unknown UNK Verified 09/28/18 16:24 cat dander Allergy Unknown UNK Verified 09/28/18 16:24 codeine Allergy Unknown "CODEINE Verified 09/28/18 16:24 DERIVATIVES" hydrocodone Allergy Unknown unknown Unverified 09/28/18 16:24 meperidine Allergy Unknown _ Verified 09/28/18 16:24 morphine Allergy Unknown "MORPHINE Verified 09/28/18 16:24 DERIVATIVES", MORPHINE IS OK pioglitazone Allergy Unknown UNK Verified 09/28/18 16:24 nickel AdvReac Rash Verified 09/28/18 18:39 Cockroach Allergy Unknown UNK Uncoded 09/28/18 16:24 Dust Allergy Unknown UNK Uncoded 09/28/18 16:24 Unclassified Drugs Allergy Unknown "ALLERGIC Uncoded 09/28/18 16:24 TO TREES" Past Med/Surg History Social History Preferred Language: French Beliefs That Will Affect Care: None marital status: Current Living Situation: Family Current Living Situation Comment: Lives at home with daugther, son in law and grandchildren Feels Safe at Home: Yes Smoking Status: Former smoker Hx Alcohol Use: No Hx Substance Use: No Physical Exam Vital Signs Vital Signs - 24 hr 12/09/18 09:39 Temperature 98.4 F Temperature Source Oral Sepsis Recent Fever Within 48 Hours No Sepsis New/Unexplained Change in Mental Status No Sepsis Action Taken by Nursing No Action Required Pulse Rate 61 Respiratory Rate 24 Respiratory Effort / Characteristics Non-Labored Spontaneous Respiratory Depth Normal Respiratory Pattern Regular Blood Pressure 124/75 Blood Pressure Mean 91 Pulse Oximetry 88 L Oxygen Delivery Method Room Air Discharge Plan Visit Data Chief Complaint: Fall Stated Complaint: fall/ facial swelling&bruising ED Provider: Garett Mckeon Prescriptions Prescriptions: No Action furosemide 40 mg Tablet 40 mg PO DAILY RF: 0 atorvastatin 40 mg Tablet 40 mg PO DAILY RF: 0 silver sulfadiazine 1 % Cream 1 applic TOPICAL DAILY RF: 0 fluticasone-salmeterol [Advair Diskus] 250-50 mcg/dose Blister With Device 1 inh INHALATION Q12H RF: 0 gabapentin 600 mg Tablet 600 mg PO BID RF: 0 diltiazem HCl 360 mg capsule,extended release 24 hr 360 mg PO DAILY RF: 0 allopurinol 100 mg Tablet 100 mg PO BID RF: 0 aspirin [Aspirin Low Dose] 81 mg Tablet,Delayed Release (Dr/Ec) 81 mg PO DAILY RF: 0 benzonatate 100 mg Capsule 100 mg PO TID PRN (Reason: Cough) RF: 0 gemfibrozil 600 mg Tablet 600 mg PO BID RF: 0 mometasone 50 mcg/actuation [place],Non-Aerosol 2 spray INTRANASAL DAILY RF: 0 levothyroxine 112 mcg Tablet 112 mcg PO DAILY RF: 0 insulin lispro [Humalog KwikPen Insulin] 100 unit/mL Insulin Pen 35 unit SUBCUT QAM RF: 0 insulin lispro [Humalog KwikPen Insulin] 100 unit/mL Insulin Pen 30 unit SUBCUT QPM RF: 0 insulin lispro [Humalog KwikPen Insulin] 100 unit/mL Insulin Pen 15 unit SUBCUT DAILY RF: 0 metoprolol tartrate 25 mg Tablet 25 mg PO BID RF: 0 insulin glargine [Lantus Solostar U-100 Insulin] 100 unit/mL (3 mL) Insulin Pen 70 unit SUBCUT DAILY RF: 0 dabigatran etexilate [Pradaxa] 150 mg Capsule 150 mg PO BID RF: 0 empagliflozin 25 mg Tablet 25 mg PO DAILY RF: 0 ipratropium-albuterol 20-100 mcg/actuation mist 1 puff Inhalation DAILY RF: 0 ipratropium-albuterol 20-100 mcg/actuation Mist 1 puff INHALATION QID RF: 0
[2018-12-09] MEDS ORDERED: ALBUT/IPRATROP 3MG/0.5MG NEB 3 ML VIAL NEB STA (10:05)
[2018-12-09 10:18] LABS: Basophils # (auto) 0.06 K/uL (0-0.2); Basophils % (auto) 0.6 %; Eosinophils # (auto) 0.25 K/uL (0-0.5); Eosinophils % (auto) 2.4 %; Hematocrit (blood only) 43.8 % (37-47); Immature Granulocytes # (auto) 0.04 K/uL (0.00-0.02); Immature Granulocytes % (auto) 0.4 %; Lymphocytes # (auto) 1.95 K/uL (1.2-3.4); Lymphocytes % (auto) 18.7 %; Mean Platelet Volume 10.7 fL (7.4-10.4); Monocytes # (auto) 0.95 K/uL (0.11-0.59); Monocytes % (auto) 9.1 %; Neutrophils # (auto) 7.17 K/uL (1.4-6.5); Neutrophils % (auto) 68.8 %; Platelet Count 294 K/uL (130-400); RDW Coefficient of Variation 15.8 % (11.5-14.5); RDW Standard Deviation 53.7 fL (36.4-46.3); Red Blood Count 4.71 M/uL (4.2-5.4); White Blood Count 10.42 K/uL (4.8-10.8)
--- NOTE | 2018-12-09 10:26 | XRay Report ---
XR chest 1V portable HISTORY: weakness COMPARISON: Chest 09/28/2018. FINDINGS: The heart remains mildly enlarged. No pneumothorax. No pleural effusions. Slight prominence of interstitial markings persists. This may be chronic. No new focal lung consolidations. No evidenc e for pulmonary edema. IMPRESSION: No significant change compared to the prior study. No acute process. Stable mild cardiomegaly. Electronically signed by: Bhupinder Alanis M.D. 12/09/2018 10:25 AM
[2018-12-09 10:45] LABS: Alanine Aminotransferase 23 U/L (12-78); Albumin Level 3.2 gm/dl (3.4-5.0); Aspartate Aminotransferase 22 U/L (15-37); BUN Creatinine Ratio 19.4 (10-20); Blood Urea Nitrogen 21 mg/dl (7-18); Carbon Dioxide 28 mmol/L (21-32); Chloride 102 mmol/L (98-107); Est GFR (African American) 61.9; Est GFR (Non-African American) 53.4; Glucose 145 mg/dl (70-99); Magnesium 2.5 mg/dl (1.8-2.4); Potassium 4.6 mmol/L (3.5-5.1); Sodium 137 mmol/L (136-145)
--- NOTE | 2018-12-09 10:53 | CT Scan Report ---
HEAD CT NONCONTRAST CT DOSE: HISTORY: fall TECHNIQUE: Multiaxial CT images of the head were performed without the use of intravenous contrast. A utomated exposure control was utilized for this study. A dose lowering technique was utilized adheri ng to the principles of ALARA. Comparison: Head CT 07/16/2013. Findings: Hemorrhage within the paranasal sinuses with mildly displaced nasal bone fractures. The mas toid air cells are clear. The calvarium and skull base are intact. The ventricles and sulci are withi n normal limits. There is no mass, hematoma, midline shift, or acute infarct. Impression: No acute intracranial abnormality. Nasal bone fractures with hemorrhage in the paranasal sinuses. Electronically signed by: Bhupinder Alanis M.D. 12/09/2018 10:50 AM
--- NOTE | 2018-12-09 10:56 | CT Scan Report ---
MAXILLOFACIAL CT CT DOSE: 1662.60 mGy.cm HISTORY: fall TECHNIQUE: Multiaxial CT images of the maxillofacial region were performed and reformatted in the cor onal plane without the use of contrast. A dose lowering technique was utilized adhering to the princ iples of MESERET. COMPARISON: None. FINDINGS: Nasal and right periorbital soft tissue swelling. Small subcutaneous right infraorbital hem atoma. There is hemorrhage within the nasal cavities, maxillary sinuses, and sphenoid sinuses. The gl obes and retrobulbar fat are intact. Bilateral nasal bone fractures with mild left displacement. The fracture extends into the nasal process of the right maxilla. The orbital floors and lamina papyracea are intact. Motion artifact involving the posterior wall the left maxillary sinus. The zygomatic arc hes, skull base, mandible, and pterygoid plates are intact. IMPRESSION: Bilateral nasal bone fractures with facial soft tissue injury as described above. Electronically signed by: Bhupinder Alanis M.D. 12/09/2018 10:54 AM
[2018-12-09 10:58] LABS: Albumin Globulin Ratio 0.8 (0.9-2); Alkaline Phosphatase 104 U/L (45-117); Bilirubin,Total 0.3 mg/dl (0.2-1); Globulin 4.1 gm/dl (2.5-4.0); Total Protein 7.4 gm/dl (6.4-8.2); Troponin I < 0.015 ng/ml (0-0.045)
--- NOTE | 2018-12-09 11:00 | CT Scan Report ---
CERVICAL SPINE CT CT DOSE: HISTORY: Neck pain. fall TECHNIQUE: Multiaxial CT images of the cervical spine were performed and reformatted in the sagittal and coronal plane without the use of contrast. A dose lowering technique was utilized adhering to th e principles of ALARA. COMPARISON: None. FINDINGS: No fractures. No subluxation. Prevertebral soft tissues and the C1-C2 interval are intact b ut demonstrates mild erosive change. This is likely chronic. No pneumothorax. Mild to moderate degene rative disc disease within the upper thoracic spine. IMPRESSION: No fractures within the cervical spine. Electronically signed by: Bhupinder Alanis M.D. 12/09/2018 10:59 AM
--- NOTE | 2018-12-09 13:07 | History & Physical Report ---
Date of Service December 09, 2018 Assessment & Plan (1) Syncope: This is a 63yo F with a PMH of morbid obesity, chronic atrial fibrillation on anticoagulation, DM II, HTN, HLD, diabetic neuropathy, COPD, NAVI noncompliant with CPAP, hypothyroidism and other medical problems listed below who presents after unwitnessed syncopal episode at home. -Likely post-micturition syncope, given story. Episode unwitnessed but family reports similar witnessed episodes in past -CT head without acute bleed, EKG with rate controlled A Fib, not hypoglycemic at time of event -Non-compliant with CPAP, so possibly related to CO2 retention overnight -Ordered orthostatic vitals, 2D echo -Monitor on telemetry -Fall precautions (2) Closed head injury: (3) Nasal bone fractures: (4) Facial contusion: CT head/face without acute intracranial abnormality. Bilateral nasal bone fractures with facial soft tissue injury as described above -No hematoma of nasal septum or fractures within the cervical spine -Apply ice, pain control -Close ENT follow-up upon discharge -Hold Pradaxa today 2/2 bleeding in the paranasal sinuses, per CT head (5) Acute respiratory failure with hypoxia: Hypoxic at 88% upon arrival, improved to 98% on 2L NC -In setting of COPD, possible flu ( PCR pending) -CXR without evidence of PNA. No leukocytosis -Appears volume overloaded on exam. Receiving IV Lasix, 2D echo pending -Continue home inhalers, PRN duonebs (6) Leg wound, right: Chronic wound, s/p recent surgical debridement of L great toe by [facility] podiatry -Recently completed Keflex, continue Bactrim course -Wound care while in-patient (7) T2DM (type 2 diabetes mellitus): Hgb of 7.2 in Nov 2018 -Hold home agents -Basal/bolus per protocol while inpatient. May require adjustment -BSG AC HS (8) HTN (hypertension): Normotensive. Giving IV lasix 40 BID in setting of BLE edema (no known heart failure), holding oral 40mg daily lasix -Continue Lopressor with hold parameters, valsartan-hctz in AM (9) HLD (hyperlipidemia): Continue gemfibrozil (10) Atrial fibrillation: Evidence of rate-controlled A fib on EKG -Given missed AM doses of diltiazem, Lopressor -Monitor on telemetry -Hold Pradaxa today in setting of fall (11) COPD (chronic obstructive pulmonary disease): Stable. Continue home inhalers, nebs PRN (12) CKD (chronic kidney disease) stage 3, GFR 30-59 ml/min: Kidney function at baseline. Continue to monitor (13) NAVI (obstructive sleep apnea): Non-compliant with CPAP, has upcoming sleep study -CO2 retention may be contributing to syncopal events/falls (14) GERD (gastroesophageal reflux disease): Continue PPI (15) Depression: Stable. Continue Wellbutrin (16) Hypothyroid: TSH wnl. Continue levothyroxine DVT Ppx: Holding Pradaxa today due to fall, plan to resume Code status: FULL PCP: Taylor Dispo: Admitted to med/surg. Discharge planning ordered (family feels patient needs more help at home) Patient seen in collaboration with Dr. Manzano. Please see addendum. History of Present Illness Chief Complaint: syncopal event at home Primary Care Provider: Mohsen Vazquez This is a 63yo F with a PMH of morbid obesity, chronic atrial fibrillation on anticoagulation, DM II, HTN, HLD, diabetic neuropathy, COPD, NAVI noncompliant with CPAP, hypothyroidism and other medical problems listed below who presents after unwitnessed syncopal episode at home. Patient got up to use the restroom this morning and then remembers landing on her face on bathroom floor. Denies any lightheadedness, chest pain, palpitations or SOB proceeding syncopal event. Family states she has had a few episodes similar to this at home in the past few months. Was brought to ED for further evaluation. Denies any fever or chills but has been coughing and feeling generally weak. Has multiple grandchildren that live with her who have + Flu A. Also has history of COPD and has been using inhalers. Has felt generally weak and has had worsening bilateral lower extremity edema. Denies chest pain, palpitations, nausea, vomiting, abdominal pain or diarrhea. Was recently discharged in Oct 2018 after being treated for RLE cellulitis 2/2 sheila. Has been following with [facility] podiatry and underwent surgical debridement of left first toe ulcer 2 weeks ago. Recently completed course of Keflex and is now on Bactrim. Allergies Allergy/AdvReac Type Severity Reaction Status Date / Time GIN Inhibitors Allergy Unknown UNK Verified 12/09/18 11:09 cat dander Allergy Unknown UNK Verified 12/09/18 11:09 codeine Allergy Unknown "CODEINE Verified 12/09/18 11:09 DERIVATIVES" hydrocodone Allergy Unknown unknown Unverified 12/09/18 11:09 meperidine Allergy Unknown _ Verified 12/09/18 11:09 morphine Allergy Unknown "MORPHINE Verified 12/09/18 11:09 DERIVATIVES", MORPHINE IS OK pioglitazone Allergy Unknown UNK Verified 12/09/18 11:09 nickel AdvReac Rash Verified 12/09/18 11:09 Cockroach Allergy Unknown UNK Uncoded 12/09/18 11:09 Dust Allergy Unknown UNK Uncoded 12/09/18 11:09 Unclassified Drugs Allergy Unknown "ALLERGIC Uncoded 09/28/18 16:24 TO TREES" Home Medications Home Medications Medication Instructions Recorded Confirmed Type Humalog KwikPen Insulin 30 unit SUBCUT 1400 09/28/18 12/09/18 History Humalog KwikPen Insulin 30 unit SUBCUT HS 09/28/18 12/09/18 History Humalog KwikPen Insulin 35 unit SUBCUT QAM 09/28/18 12/09/18 History Lantus Solostar U-100 Insulin 50 unit SUBCUT BID 09/28/18 12/09/18 History Pradaxa 150 mg PO BID 09/28/18 12/09/18 History allopurinol 100 mg PO BID 09/28/18 12/09/18 History aspirin [Aspirin Low Dose] 81 mg PO QAM 09/28/18 12/09/18 History atorvastatin 40 mg PO HS 09/28/18 12/09/18 History benzonatate 100 mg PO TID PRN 09/28/18 12/09/18 History diltiazem HCl 360 mg PO QAM 09/28/18 12/09/18 History empagliflozin 25 mg PO QAM 09/28/18 12/09/18 History fluticasone-salmeterol [Advair 1 inh INHALATION Q12H 09/28/18 12/09/18 History Diskus] furosemide 40 mg PO QAM 09/28/18 12/09/18 History gabapentin 600 mg PO BID 09/28/18 12/09/18 History gemfibrozil 600 mg PO BID 09/28/18 12/09/18 History ipratropium-albuterol 1 puff INHALATION QID 09/28/18 12/09/18 History levothyroxine 112 mcg PO QAM 09/28/18 12/09/18 History metoprolol tartrate 25 mg PO BID 09/28/18 12/09/18 History mometasone 2 spray INTRANASAL QAM 09/28/18 12/09/18 History silver sulfadiazine 1 applic TOPICAL QAM 09/28/18 12/09/18 History bupropion HCl 150 mg PO BID 12/09/18 12/09/18 History diclofenac sodium 2 g TOPICAL QID 12/09/18 12/09/18 History omeprazole 40 mg PO QAM 12/09/18 12/09/18 History sulfamethoxazole-trimethoprim 1 tab PO BID 12/09/18 12/09/18 History [Bactrim DS] valsartan-hydrochlorothiazide 1 tab PO QAM 12/09/18 12/09/18 History Past Med/Surg History Medical History T2DM (type 2 diabetes mellitus) (Chronic) HTN (hypertension) (Chronic) HLD (hyperlipidemia) (Chronic) COPD (chronic obstructive pulmonary disease) (Chronic) NAVI (obstructive sleep apnea) (Chronic) Diabetic neuropathy (Chronic) CKD (chronic kidney disease) stage 3, GFR 30-59 ml/min (Chronic) GERD (gastroesophageal reflux disease) (Chronic) Depression (Chronic) Hypothyroid (Chronic) Gout (Chronic) Morbid obesity (Chronic) Atrial fibrillation (Chronic) Atrial fibrillation with rapid ventricular response (Resolved 07/14/14) Cellulitis (Resolved) Surgical History History of cholecystectomy (Resolved) History of hernia repair (Resolved) Family History Father Heart attack CAD (coronary artery disease) Mother Complication of surgery Other No significant family history T2DM (type 2 diabetes mellitus) Social History Preferred Language: Maltese Beliefs That Will Affect Care: None marital status: Current Living Situation: Family Current Living Situation Comment: Lives at home with daugther, son in law and grandchildren Feels Safe at Home: Yes Smoking Status: Former smoker Hx Alcohol Use: No Hx Substance Use: No Review of Systems All systems reviewed & are unremarkable except as noted in HPI & below Physical Exam Vital Signs (Past 24 Hours): Last Vital Signs Temp 36.9 C 12/09/18 09:39 Pulse 73 12/09/18 12:30 Resp 18 12/09/18 12:30 BP 132/78 12/09/18 12:30 Pulse Ox 98 12/09/18 12:30 Physical Exam: General Appearance: WD/WN, morbidly obese, facial bruising, saturating 98% on 2L NC Head: normocephalic, atraumatic Eyes: normal inspection, PERRL, EOMI ENT: hearing grossly normal, facial swelling, nasal bones TTP with ice pack, pharynx normal (moist mucous membranes) Neck: supple, no JVD, no adenopathy Respiratory/Chest: lungs clear to auscultation. No wheezes, rales or rhonci. No respiratory distress or accessory muscle use Cardiovascular: irregular rate & rhythm, no murmur, normal peripheral pulses, 3+ BLE pitting edema Abdomen/GI: Large pannus, normal bowel sounds, soft, non-tender to palpation Extremities/Musculoskelatal: normal inspection, no calf tenderness, normal capillary refill, no pedal edema Neurologic/Psych: alert, normal mood/affect, oriented x 3 Skin: normal color, warm/dry. L great toe with dressing in place Results & Data Laboratory Results Short CBC 12/09/18 Range/Units 10:10 WBC 10.42 (4.8-10.8) K/uL Hgb 14.0 (12.0-16.0) g/dL Hct 43.8 (37-47) % Plt Count 294 (130-400) K/uL BMP 12/09/18 10:10 Sodium 137 Potassium 4.6 Chloride 102 Carbon Dioxide 28 BUN 21 H Creatinine 1.10 Glucose 145 H Calcium 9.0 Cardiac Enzymes 12/09/18 Range/Units 10:10 Troponin I < 0.015 (0-0.045) ng/ml Liver Function 12/09/18 Range/Units 10:10 Total Bilirubin 0.3 (0.2-1) mg/dl AST 22 (15-37) U/L ALT 23 (12-78) U/L Alkaline Phosphatase 104 (45-117) U/L Albumin 3.2 L (3.4-5.0) gm/dl Diagnostic Findings Head CT: Impression: No acute intracranial abnormality. Nasal bone fractures with hemorrhage in the paranasal sinuses. Face CT: IMPRESSION: Bilateral nasal bone fractures with facial soft tissue injury as described above. Cervical spine CT: IMPRESSION: No fractures within the cervical spine. CXR: IMPRESSION: No significant change compared to the prior study. No acute process. Stable mild cardiomegaly. ECG Rhythm: atrial fibrillation Supervising Physician Co-Signing Physician Notes I saw this patient with the physician cook's assistant, I participated in the history, review of systems, and physical exam. I reviewed the medications with the patient and the physician cook's assistant and helped reconcile the medications. I helped take a detailed family and social history as well. I formulated the assessment and plan personally with the physician cook's assistant and went over it with the patient. ROS-No Headache, No Visual Changes, No Nausea, No Vomiting, No Fever, No Chills, No Neck Pain or Stiffness, No Chest Pain, No Palpitations, No SOB, No CHINO, No Cough, No Sputum, No Wheezing, No Abdominal Pain, No Diarrhea, No Hematemesis, No Hemoptysis, No Unexpected Weight Loss, No Flank pain, No Melena, No Hematochezia, No Frequency, No Urgency, No Burning, No Hematuria, No Rashes, No Diaphoresis. Appetite is Normal, positive nasal pain. Positive syncope while urinating Physical Exam Gen-AAO x 3, NAD, Afebrile, morbidly obese Head-NCAT, EOMI, PERRLA, Anicteric Sclera, No Posterior Pharyngeal Erythema Neck-Supple, No JVD, No Thyromegaly, No Masses, No LAD, No Bruits Lungs-Clear to Auscultation Bilaterally, No Rales, No Rhonchi, No Wheezing, No Crepitus Chest-No S4, +S1, +S2, No S3, No Murmurs, No Rubs, No Gallops, No Ectopy Abdomen-Soft, Bowel Sounds Present, obese, non Tender, Non Distended, No Hepatomegaly, No Splenomegaly, No Palpable Masses, No Rebound, No Rigidity, No Guarding Musculoskeletal-Full Range of Motion Bilaterally, No CVAT Extremities-No Cyanosis, No Clubbing, +2-3+ pitting edema in the lower extremities Nuero-Cranial Nerves II-XII grossly intact, Motor WNL, DTRs WNL, Strength WNL, Non Focal Psych-Normal Mood Syncope with collapse most likely secondary to micturition please see PA note for more details (1) Nasal bone fractures Encounter type: initial encounter Fracture type: closed Qualified Code(s): S02.2XXA - Fracture of nasal bones, initial encounter for closed fracture (2) T2DM (type 2 diabetes mellitus) Diabetes mellitus complication detail: with other skin complication Diabetes mellitus complication status: with skin complications 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 use Qualified Code(s): E11.628 - Type 2 diabetes mellitus with other skin complications; 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 (3) Atrial fibrillation Atrial fibrillation type: chronic Qualified Code(s): I48.2 - Chronic atrial fibrillation (4) Closed head injury Encounter type: initial encounter Qualified Code(s): S09.90XA - Unspecified injury of head, initial encounter (5) HLD (hyperlipidemia) Hyperlipidemia type: mixed hyperlipidemia Qualified Code(s): E78.2 - Mixed hyperlipidemia (6) Hypothyroid Hypothyroidism type: unspecified Qualified Code(s): E03.9 - Hypothyroidism, unspecified (7) Syncope Syncope type: unspecified Qualified Code(s): R55 - Syncope and collapse (8) Facial contusion Encounter type: initial encounter Qualified Code(s): S00.83XA - Contusion of other part of head, initial encounter (9) COPD (chronic obstructive pulmonary disease) COPD type: unspecified COPD Qualified Code(s): J44.9 - Chronic obstructive pulmonary disease, unspecified (10) HTN (hypertension) Hypertension type: essential hypertension Qualified Code(s): I10 - Essential (primary) hypertension
[2018-12-09 13:46] LABS: Influenza A virus by PCR Neg for Influ A (Neg); Influenza B virus by PCR Neg for Influ B (Neg)
[2018-12-09] MEDS ORDERED: CARBOHYDRATES FOR HYPOGLYCEMIA PO PRN (13:48)
[2018-12-09] MEDS ORDERED: DEXTROSE 50% 50 ML SYRINGE IV PRN (13:48)
[2018-12-09] MEDS ORDERED: POLYETHYLENE (MIRALAX) 17 GM PACK PO PRN (13:48)
[2018-12-09] MEDS ORDERED: GLUCOSE 10 TABS/TUBE PO PRN (13:48)
[2018-12-09] MEDS ORDERED: GLUCAGON FOR INJ 1 MG VIAL SQ PRN (13:48)
[2018-12-09] MEDS ORDERED: GLUCOSE 40% GEL 15 GM TUBE PO PRN (13:48)
[2018-12-09] MEDS ORDERED: ONDANSETRON INJ 2 MG/ML 2 ML VIAL IV PRN (13:48)
[2018-12-09] MEDS ORDERED: ALBUT/IPRATROP 3MG/0.5MG NEB 3 ML VIAL NEB PRN (14:13)
[2018-12-09] MEDS: ACETAMINOPHEN 325 MG TAB PO PRN (14:14)
[2018-12-09] MEDS: FUROSEMIDE 40 MG in SYRINGE 0 ML IV SCH ×2 (14:40→21:26)
[2018-12-09] MEDS: DICLOFENAC SOD 1% GEL 100 GM TUBE EXT SCH ×3 (14:41→21:42)
[2018-12-09] MEDS: INSULIN GLARGINE SOLOSTAR 100 UNITS/ML 3 ML PEN SC SCH ×2 (14:41→23:20)
[2018-12-09] MEDS: INSULIN ASPART 100 UNITS/ML 3 ML PEN SC SCH ×3 (14:43→21:37)
[2018-12-09] MEDS: IPRATROPIUM BROMIDE/ALBUTEROL respimat INH INH SCH ×3 (14:58→21:25)
[2018-12-09] MEDS: BENZONATATE 100 MG CAPSULE PO PRN (14:59)
[2018-12-09] MEDS: SILVER SULFADIAZINE 1% CR 50 GM JAR TOP SCH (15:04)
[2018-12-09] MEDS: METOPROLOL TARTRATE 25 MG TAB PO SCH ×2 (16:38→21:28)
[2018-12-09] MEDS: SULFAMETHOXAZOLE/TRIMETHOPRIM DS 800/160MG TAB PO SCH ×2 (16:38→21:30)
[2018-12-09] MEDS: BuPROPion SR 150 MG TABCR PO SCH ×2 (16:39→21:31)
--- NOTE | 2018-12-09 17:18 | Emergency Department Note ---
Entered by Myles Nino acting as a scribe for ED Provider Note CHIEF COMPLAINT: facial pain after fall HISTORY OF PRESENT ILLNESS: The patient is a 63 year old female with a history of COPD, atrial fibrillation, hypertension, and diabetes who presents to the Emergency Room after a fall occurring this morning prior to arrival. The patient states that she was sitting on the toilet this morning, and the next thing she remembers was falling forward and striking her head and face on the bathtub. She reports persistent facial pain and states that her neck was hurting earlier but not currently. The patient denies pain in her head, hip pain, nausea, or biting her tongue. She states that she regularly takes Pradaxa and aspirin. The patient was discharged from the hospital in October for right leg cellulitis, and she states that she is currently taking Keflex and Bactrim for a surgery on her toe last week. She notes that her extremities are chronically numb and tingling and denies changes in them since the fall. She states that she does not use supplemental oxygen at home but regularly uses albuterol treatments, which she did not take this morning. She states that family members were diagnosed with the flu a couple of days ago. Pt denies headache, fevers, chills, diaphoresis, visual changes, chest pain, vomiting, abdominal pain, back pain, melena, hematochezia, urinary symptoms, ly mphadenopathy, or other complaints. REVIEW OF SYSTEMS: See HPI for pertinent positives and negatives. A total of ten systems were reviewed and were otherwise negative. PMHx/PSHx: COPD, atrial fibrillation, hypertension, diabetes SOCIAL HISTORY: Patient lives at home. PHYSICAL EXAM: GENERAL: Awake, alert, mildly ill appearing, no distress HEAD: There is right maxillary and right periorbital ecchymosis, swelling, and tenderness to palpation. No weldon sign. No raccoon eyes. EYES: Normal conjunctiva. PERRL. No hyphema. EARS: External ears normal. Right TM normal. Left TM normal. NOSE: There is nasal ecchymosis, swelling, and tenderness to palpation. No septal hematoma. OROPHARYNX: Lips, tongue, and mucosa unremarkable. No erythema or exudate. NECK: Cervical collar in place. No tracheal deviation or JVD. No posterior midline tenderness. No step offs noted. RESPIRATORY: CTA bilaterally. Breath sounds equal. Scant wheezes. No rhonchi. Normal respiratory effort. CARDIAC: Normal rate, irregular rhythm. No murmurs. No rubs. ABDOMEN: Inspection reveals no abnormalities. Soft, non distended. No tenderness to palpation. No hernias. BACK: No midline step offs or tenderness to palpation. Unremarkable. PELVIS: Stable to rock. SKIN: There is mild redness to both shins, right greater than left. LYMPH: No adenopathy. MUSCULOSKELETAL: There is 1+ bilateral lower extremity edema. There is a bandage on the left great toe without drainage or bleeding. Upper and lower extremities are otherwise atraumatic. NEURO: GCS 15. Normal sensorium. No sensory or motor deficits noted. EMERGENCY DEPARTMENT COURSE: 09: Past medical records reviewed. The patient was evaluated in room A3, and a complete history and physical examination were performed. 1145: I updated the patient on current results. 1153: I consulted Verena Morillo PA-C: [facility] Hospitalist with Dr. Manzano. The patient will be reevaluated for hospitalization. MEDICAL DECISION MAKING: Prior records/ancillary studies reviewed. Triage Nursing notes reviewed and agree them. Additional history obtained from the family. The patient's history was concerning for syncope. Differential diagnosis: Etiologies such as infection, hypoglycemia, electrolyte abnormalities, cardiac sources, intracerebral event, toxicologic, neurologic, as well as others were entertained. Physical examination: As above. Facial injuries noted. ER treatment provided: DuoNeb Supplemental oxygen On reassessment the patient felt better. Diagnostics interpretation by me: ECG: No acute ischemia. A. fib noted. The labs revealed an unremarkable CBC and chemistry panel. TSH, troponin, and influenza testing negative. Imaging studies: CT scans of the head facial bones and neck revealed bilateral nasal bone fractures. Blood noted in the maxillary sinuses. No intracranial bleeding noted. No fractures otherwise. Chest x-ray negative. Patient had a syncopal episode. She had mild hypoxia. She has a history of COPD. She also has a history of atrial fibrillation. Further management in the hospital will be necessary. Consultation: A consultation was placed with the hospitalist. The case was discussed and diagnostics were reviewed. The patient was evaluated in the ER for further treatment. IMPRESSION: syncope, closed head injury, bilateral nasal bone fractures, facial contusions, COPD PLAN: being evaluated by hospitalist ATTESTATION: The scribe's documentation has been prepared under my direction and personally reviewed by me in its entirety. I confirm that the note above accurately reflects all work, treatment, procedures, and medical decision making performed by me. Impression & Plan Syncope, COPD (chronic obstructive pulmonary disease), Closed head injury, Nasal bone fractures, Facial contusion Past Med/Surg History Medical History T2DM (type 2 diabetes mellitus) (Chronic) HTN (hypertension) (Chronic) HLD (hyperlipidemia) (Chronic) COPD (chronic obstructive pulmonary disease) (Chronic) NAVI (obstructive sleep apnea) (Chronic) Diabetic neuropathy (Chronic) CKD (chronic kidney disease) stage 3, GFR 30-59 ml/min (Chronic) GERD (gastroesophageal reflux disease) (Chronic) Depression (Chronic) Hypothyroid (Chronic) Gout (Chronic) Morbid obesity (Chronic) Atrial fibrillation (Chronic) Atrial fibrillation with rapid ventricular response (Resolved 07/14/14) Cellulitis (Resolved) Surgical History History of cholecystectomy (Resolved) History of hernia repair (Resolved) Family History Father Heart attack CAD (coronary artery disease) Mother Complication of surgery Other No significant family history T2DM (type 2 diabetes mellitus) Social History Preferred Language: Kiswahili Communication Ability: Effective Mental Hygienist Required: No Beliefs That Will Affect Care: None marital status: Current Living Situation: Family Current Living Situation Comment: Lives at home with daugther, son in law and grandchildren Other Information That Helps Us Care for You: No Feels Safe at Home: No Safety Concerns: Feels Safe At This Time Smoking Status: Former smoker Hx Alcohol Use: No Hx Substance Use: No Results & Data Vital Signs Vital Signs - 24 hr 12/09/18 09:39 12/09/18 10:05 12/09/18 10:13 Temperature 36.9 C Temperature Source Oral Sepsis Recent Fever Within 48 Hours No Sepsis New/Unexplained Change in Mental Status No Sepsis Action Taken by Nursing No Action Required Pulse Rate 61 Pulse Rate [Apical] Pulse Rhythm [Apical] Pulse Strength [Apical] Respiratory Rate 24 Respiratory Effort / Characteristics Non-Labored Spontaneous Respiratory Depth Normal Respiratory Pattern Regular Blood Pressure 124/75 Blood Pressure [Left Arm] Blood Pressure Mean 91 Blood Pressure Mean [Left Arm] Pulse Oximetry 88 L 94 94 Oxygen Delivery Method Room Air Nasal Cannula Nasal Cannula Oxygen Flow Rate 2 2 12/09/18 12:30 12/09/18 13:31 12/09/18 14:00 Temperature Temperature Source Sepsis Recent Fever Within 48 Hours Sepsis New/Unexplained Change in Mental Status Sepsis Action Taken by Nursing Pulse Rate 90 Pulse Rate [Apical] 73 Pulse Rhythm [Apical] Regular Pulse Strength [Apical] Normal Respiratory Rate 18 20 Respiratory Effort / Characteristics Non-Labored Spontaneous Non-Labored Spontaneous SOB on Exertion Respiratory Depth Normal Normal Respiratory Pattern Regular Blood Pressure 136/86 Blood Pressure [Left Arm] 132/78 Blood Pressure Mean Blood Pressure Mean [Left Arm] 96 Pulse Oximetry 98 97 Oxygen Delivery Method Room Air Room Air Nasal Cannula Oxygen Flow Rate 2 Home Medications Current Medication List: was personally reviewed by me Laboratory Data Attestation: I reviewed the patient's lab results. Result diagrams: 12/09/18 10:10 12/09/18 10:10 Lab Results 12/09/18 12/09/18 12/09/18 Range/Units 10:00 10:10 10:10 WBC 10.42 (4.8-10.8) K/uL RBC 4.71 (4.2-5.4) M/uL Hgb 14.0 (12.0-16.0) g/dL Hct 43.8 (37-47) % MCV 93.0 (80-100) fL MCH 29.7 (25-34) pg MCHC 32.0 (32-36) g/dL RDW Std Deviation 53.7 H (36.4-46.3) fL RDW Coeff of Afraz 15.8 H (11.5-14.5) % Plt Count 294 (130-400) K/uL MPV 10.7 H (7.4-10.4) fL Immature Gran % (Auto) 0.4 % Neut % (Auto) 68.8 % Lymph % (Auto) 18.7 % [place] % (Auto) 9.1 % Eos % (Auto) 2.4 % Baso % (Auto) 0.6 % Immature Gran # (Auto) 0.04 H (0.00-0.02) K/uL Neut # (Auto) 7.17 H (1.4-6.5) K/uL Lymph # (Auto) 1.95 (1.2-3.4) K/uL [place] # (Auto) 0.95 H (0.11-0.59) K/uL Eos # (Auto) 0.25 (0-0.5) K/uL Baso # (Auto) 0.06 (0-0.2) K/uL Sodium 137 (136-145) mmol/L Potassium 4.6 (3.5-5.1) mmol/L Chloride 102 (98-107) mmol/L Carbon Dioxide 28 (21-32) mmol/L Anion Gap 7.0 (3-11) BUN 21 H (7-18) mg/dl Creatinine 1.10 (0.6-1.2) mg/dl Est Cr Clr Drug Dosing 76.0 ml/min Est GFR ( Amer) 61.9 Est GFR (Non-Af Amer) 53.4 BUN/Creatinine Ratio 19.4 (10-20) Glucose 145 H (70-99) mg/dl POC Glucose (70-99) Calcium 9.0 (8.5-10.1) mg/dl Magnesium 2.5 H (1.8-2.4) mg/dl Total Bilirubin 0.3 (0.2-1) mg/dl AST 22 (15-37) U/L ALT 23 (12-78) U/L Alkaline Phosphatase 104 (45-117) U/L Troponin I < 0.015 (0-0.045) ng/ml NT-Pro-B Natriuret Pep (0-900) pg/ml Total Protein 7.4 (6.4-8.2) gm/dl Albumin 3.2 L (3.4-5.0) gm/dl Globulin 4.1 H (2.5-4.0) gm/dl Albumin/Globulin Ratio 0.8 L (0.9-2) TSH 0.638 (0.300-4.500) uIu/ml Specimen Hemolysis Influenza Type A Ag (Neg) Influenza Type A (PCR) Neg for Influ A (Neg) Influenza Type B Ag (Neg) Influenza Type B (PCR) Neg for Influ B (Neg) 12/09/18 12/09/18 12/09/18 Range/Units 10:10 10:15 14:23 WBC (4.8-10.8) K/uL RBC (4.2-5.4) M/uL Hgb (12.0-16.0) g/dL Hct (37-47) % MCV (80-100) fL MCH (25-34) pg MCHC (32-36) g/dL RDW Std Deviation (36.4-46.3) fL RDW Coeff of Faraz (11.5-14.5) % Plt Count (130-400) K/uL MPV (7.4-10.4) fL Immature Gran % (Auto) % Neut % (Auto) % Lymph % (Auto) % [place] % (Auto) % Eos % (Auto) % Baso % (Auto) % Immature Gran # (Auto) (0.00-0.02) K/uL Neut # (Auto) (1.4-6.5) K/uL Lymph # (Auto) (1.2-3.4) K/uL [place] # (Auto) (0.11-0.59) K/uL Eos # (Auto) (0-0.5) K/uL Baso # (Auto) (0-0.2) K/uL Sodium (136-145) mmol/L Potassium (3.5-5.1) mmol/L Chloride (98-107) mmol/L Carbon Dioxide (21-32) mmol/L Anion Gap (3-11) BUN (7-18) mg/dl Creatinine (0.6-1.2) mg/dl Est Cr Clr Drug Dosing ml/min Est GFR ( Amer) Est GFR (Non-Af Amer) BUN/Creatinine Ratio (10-20) Glucose (70-99) mg/dl POC Glucose 113 H (70-99) Calcium (8.5-10.1) mg/dl Magnesium (1.8-2.4) mg/dl Total Bilirubin (0.2-1) mg/dl AST (15-37) U/L ALT (12-78) U/L Alkaline Phosphatase (45-117) U/L Troponin I (0-0.045) ng/ml NT-Pro-B Natriuret Pep 667 (0-900) pg/ml Total Protein (6.4-8.2) gm/dl Albumin (3.4-5.0) gm/dl Globulin (2.5-4.0) gm/dl Albumin/Globulin Ratio (0.9-2) TSH (0.300-4.500) uIu/ml Specimen Hemolysis Influenza Type A Ag Neg for Influ A (Neg) Influenza Type A (PCR) (Neg) Influenza Type B Ag Neg for Influ B (Neg) Influenza Type B (PCR) (Neg) 12/09/18 Range/Units 16:33 WBC (4.8-10.8) K/uL RBC (4.2-5.4) M/uL Hgb (12.0-16.0) g/dL Hct (37-47) % MCV (80-100) fL MCH (25-34) pg MCHC (32-36) g/dL RDW Std Deviation (36.4-46.3) fL RDW Coeff of Faraz (11.5-14.5) % Plt Count (130-400) K/uL MPV (7.4-10.4) fL Immature Gran % (Auto) % Neut % (Auto) % Lymph % (Auto) % [place] % (Auto) % Eos % (Auto) % Baso % (Auto) % Immature Gran # (Auto) (0.00-0.02) K/uL Neut # (Auto) (1.4-6.5) K/uL Lymph # (Auto) (1.2-3.4) K/uL [place] # (Auto) (0.11-0.59) K/uL Eos # (Auto) (0-0.5) K/uL Baso # (Auto) (0-0.2) K/uL Sodium (136-145) mmol/L Potassium (3.5-5.1) mmol/L Chloride (98-107) mmol/L Carbon Dioxide (21-32) mmol/L Anion Gap (3-11) BUN (7-18) mg/dl Creatinine (0.6-1.2) mg/dl Est Cr Clr Drug Dosing ml/min Est GFR ( Amer) Est GFR (Non-Af Amer) BUN/Creatinine Ratio (10-20) Glucose (70-99) mg/dl POC Glucose 159 H (70-99) Calcium (8.5-10.1) mg/dl Magnesium (1.8-2.4) mg/dl Total Bilirubin (0.2-1) mg/dl AST (15-37) U/L ALT (12-78) U/L Alkaline Phosphatase (45-117) U/L Troponin I (0-0.045) ng/ml NT-Pro-B Natriuret Pep (0-900) pg/ml Total Protein (6.4-8.2) gm/dl Albumin (3.4-5.0) gm/dl Globulin (2.5-4.0) gm/dl Albumin/Globulin Ratio (0.9-2) TSH (0.300-4.500) uIu/ml Specimen Hemolysis Influenza Type A Ag (Neg) Influenza Type A (PCR) (Neg) Influenza Type B Ag (Neg) Influenza Type B (PCR) (Neg) Administered Medications Acetaminophen (Tylenol) 650 mg PO Q4H PRN PRN Reason: Pain or Fever Stop: 01/08/19 13:47 Last Admin: 12/09/18 14:14 Dose: 650 mg Documented by: [id number] Albuterol (Combivent Respimat) 1 puffs INH QID [facility] Stop: 01/08/19 13:47 Last Admin: 12/09/18 16:41 Dose: 1 puffs Documented by: [id number] Admin: 12/09/18 14:58 Dose: 1 puffs Documented by: [id number] Benzonatate (Tessalon Perle) 100 mg PO TID PRN PRN Reason: Cough Stop: 01/08/19 13:47 Last Admin: 12/09/18 14:59 Dose: 100 mg Documented by: [id number] Bupropion HCl (Wellbutrin-Sr) 150 mg PO BID [facility] Stop: 01/08/19 13:47 Last Admin: 12/09/18 16:39 Dose: Not Given Documented by: [id number] Diclofenac Sodium (Voltaren 1% Top) 1 appln EXT QID [facility] Stop: 01/08/19 13:47 Last Admin: 12/09/18 14:41 Dose: 1 appln Documented by: [id number] Diltiazem HCl (Dilacor Xr) 360 mg PO QAM [facility] Stop: 01/08/19 13:47 Last Admin: 12/09/18 14:59 Dose: 360 mg Documented by: [id number] Furosemide 40 mg/ Syringe 4 mls @ 4 mls/min IV BID [facility] Stop: 01/08/19 12:59 Last Admin: 12/09/18 14:40 Dose: 4 mls/min Documented by: [id number] Insulin Aspart (Novolog Flexpen) 0 units SC ACHS [facility] Stop: 01/08/19 16:29 Last Admin: 12/09/18 14:43 Dose: 5 units Documented by: [id number] Cosigned by: [id number] Insulin Glargine (Lantus Solostar Pen) 25 units SC Q12 [facility] Stop: 01/08/19 13:47 Last Admin: 12/09/18 14:41 Dose: 25 units Documented by: [id number] Cosigned by: [id number] Metoprolol Tartrate (Lopressor) 25 mg PO BID [facility] Stop: 01/08/19 13:47 Last Admin: 12/09/18 16:38 Dose: Not Given Documented by: [id number] Silver Sulfadiazine (Silvadene 1% 50gm) 1 appln TOP QAM [facility] Stop: 01/09/19 08:59 Last Admin: 12/09/18 15:04 Dose: 1 appln Documented by: [id number] Trimethoprim/Sulfamethoxazole (Septra Ds 800/160mg Tab) 1 tab PO BID [facility] Stop: 12/19/18 13:47 Last Admin: 12/09/18 16:38 Dose: Not Given Documented by: [id number] Discontinued Medications Albuterol (Duoneb) 3 ml NEB NOW STA Stop: 12/09/18 10:06 Last Admin: 12/09/18 10:56 Dose: 3 ml Documented by: [id number] Imaging Data Radiologist's Impression: Radiology results as stated below per my review and the radiologist's interpretation: CERVICAL SPINE CT CT DOSE: HISTORY: Neck pain. fall TECHNIQUE: Multiaxial CT images of the cervical spine were performed and reformatted in the sagittal and coronal plane without the use of contrast. A dose lowering technique was utilized adhering to the principles of ALARA. COMPARISON: None. FINDINGS: No fractures. No subluxation. Prevertebral soft tissues and the C1-C2 interval are intact but demonstrates mild erosive change. This is likely chronic. No pneumothorax. Mild to moderate degenerative disc disease within the upper thoracic spine. IMPRESSION: No fractures within the cervical spine. Electronically signed by: Bhupinder Alanis M.D. 12/09/2018 10:59 AM XR chest 1V portable HISTORY: weakness COMPARISON: Chest 09/28/2018. FINDINGS: The heart remains mildly enlarged. No pneumothorax. No pleural effusio ns. Slight prominence of interstitial markings persists. This may be chronic. No new focal lung consolidations. No evidence for pulmonary edema. IMPRESSION: No significant change compared to the prior study. No acute process. Stable mild cardiomegaly. Electronically signed by: Bhupinder Alanis M.D. 12/09/2018 10:[address] DOSE: 1662.60 mGy.cm HISTORY: fall TECHNIQUE: Multiaxial CT images of the maxillofacial region were performed and reformatted in the coronal plane without the use of contrast. A dose lowering technique was utilized adhering to the principles of ALARA. COMPARISON: None. FINDINGS: Nasal and right periorbital soft tissue swelling. Small subcutaneous right infraorbital hematoma. There is hemorrhage within the nasal cavities, maxillary sinuses, and sphenoid sinuses. The globes and retrobulbar fat are intact. Bilateral nasal bone fractures with mild left displacement. The fracture extends into the nasal process of the right maxilla. The orbital floors and lamina papyracea are intact. Motion artifact involving the posterior wall the left maxillary sinus. The zygomatic arches, skull base, mandible, and pterygoid plates are intact. IMPRESSION: Bilateral nasal bone fractures with facial soft tissue injury as described above. Electronically signed by: Bhupinder Alanis M.D. 12/09/2018 10:[address]AST CT DOSE: HISTORY: fall TECHNIQUE: Multiaxial CT images of the head were performed without the use of in travenous contrast. Automated exposure control was utilized for this study. A dose lowering technique was utilized adhering to the principles of ALARA. Comparison: Head CT 07/16/2013. Findings: Hemorrhage within the paranasal sinuses with mildly displaced nasal bone fractures. The mastoid air cells are clear. The calvarium and skull base are intact. The ventricles and sulci are within normal limits. There is no mass, hematoma, midline shift, or acute infarct. Impression: No acute intracranial abnormality. Nasal bone fractures with hemorrhage in the paranasal sinuses. Electronically signed by: Bhupinder Alanis M.D. 12/09/2018 10:50 AM ECG Data Attestation: I personally reviewed and interpreted this ECG as follows: Indication: other (trauma) Rate (beats per minute): 73 Rhythm: atrial fibrillation Findings: + other (poor R-wave progression) and + LAFB; no PVC, no ST depression and no ST elevation Blood Pressure Blood Pressure Findings: Normal blood pressure Blood Pressure Disposition: did not require urgent referral Head Trauma GCS Score: 15 Discharge Plan Visit Data *Final* Discharge Date/Time: 12/09/18 13:31 Chief Complaint: Fall Stated Complaint: fall/ facial swelling&bruising ED Provider: Garett Mckeon Discharge Problem: Syncope, COPD (chronic obstructive pulmonary disease), Closed head injury, Nasal bone fractures, Facial contusion Patient Disposition: Admitted As Inpatient Discharge Instructions Interventions: ED Discharge Assessment Last Done: 12/09/18 13:31 Discharge Problem: Syncope Qualifiers: Syncope type: unspecified Qualified Code(s): R55 - Syncope and collapse Closed head injury Qualifiers: Encounter type: initial encounter Qualified Code(s): S09.90XA - Unspecified injury of head, initial encounter Nasal bone fractures Qualifiers: Encounter type: initial encounter Fracture type: closed Qualified Code(s): S02.2XXA - Fracture of nasal bones, initial encounter for closed fracture Facial contusion Qualifiers: Encounter type: initial encounter Qualified Code(s): S00.83XA - Contusion of other part of head, initial encounter The scribe's documentation has been prepared under my direction and personally reviewed by me in its entirety. I confirm that the note above accurately reflects all work, treatment, procedures, and medical decision making performed by me.
[2018-12-09 17:55] LABS: Appearance Urine Clear (Clear); Bilirubin Urine Negative (Negative); Blood Urine Negative (Negative); Color Urine Yellow; Glucose Urine UA 2+ (Negative); Ketones Urine Negative (Negative); Leukocyte Esterase Urine Negative (Negative); Nitrite Urine Negative (Negative); Protein Urine Negative (Negative); Specific Gravity Urine 1.011 (1.000-1.030); Urobilinogen Urine Negative (Negative)
[2018-12-09] MEDS ORDERED: SODIUM CHLORIDE 0.65% NA SOLN 45 ML (OCEAN) ONE (17:59)
[2018-12-09] MEDS: FLUTICASONE/SALMETEROL 250/50 (ADVAIR) 14 PUFF/1 INHALER INH SCH (18:00)
[2018-12-09] MEDS ORDERED: DABIGATRAN ETEXILATE 75 MG CAP PO SCH (21:00)
[2018-12-09] MEDS: MoRPHine SULFATE 4 MG/ML 1 ML CARP\\VIAL IV PRN (21:23)
[2018-12-09] MEDS: ATORVASTATIN 40 MG TAB PO SCH (21:27)
[2018-12-09] MEDS: GEMFIBROZIL 600 MG TAB PO SCH (21:27)
[2018-12-09] MEDS: GABAPENTIN 600 MG TAB PO SCH (21:28)
[2018-12-09] MEDS: ALLOPURINOL 100 MG TAB PO SCH (21:31)
[2018-12-10] MEDS: LEVOTHYROXINE SODIUM 112 MCG TABLET PO SCH (06:23)
[2018-12-10 06:51] LABS: Hematocrit (blood only) 40.6 % (37-47); Hemoglobin 13.1 g/dL (12.0-16.0); Mean Corpuscular Hgb Conc 32.3 g/dL (32-36); Mean Corpuscular Volume 92.1 fL (80-100); Mean Platelet Volume 10.5 fL (7.4-10.4); Platelet Count 280 K/uL (130-400); RDW Standard Deviation 54.3 fL (36.4-46.3); Red Blood Count 4.41 M/uL (4.2-5.4); White Blood Count 9.57 K/uL (4.8-10.8)
[2018-12-10 07:21] LABS: BUN Creatinine Ratio 21.2 (10-20); Calcium 8.4 mg/dl (8.5-10.1); Est GFR (African American) 57.4; Est GFR (Non-African American) 49.6; Potassium 4.1 mmol/L (3.5-5.1)
[2018-12-10] MEDS: BuPROPion SR 150 MG TABCR PO SCH ×2 (08:01→20:46)
[2018-12-10] MEDS: VALSARTAN 80 MG TAB PO SCH (08:01)
[2018-12-10] MEDS: METOPROLOL TARTRATE 25 MG TAB PO SCH ×2 (08:02→20:57)
[2018-12-10] MEDS: BENZONATATE 100 MG CAPSULE PO PRN (08:02)
[2018-12-10] MEDS: hydroCHLOROthiazide 25 MG TAB PO SCH (08:02)
[2018-12-10] MEDS: GABAPENTIN 600 MG TAB PO SCH ×2 (08:03→20:40)
[2018-12-10] MEDS: ALLOPURINOL 100 MG TAB PO SCH ×2 (08:03→20:46)
[2018-12-10] MEDS: PANTOprazole 40 MG TAB PO SCH (08:04)
[2018-12-10] MEDS: ASPIRIN 81 MG ECTAB PO SCH (08:04)
[2018-12-10] MEDS: SULFAMETHOXAZOLE/TRIMETHOPRIM DS 800/160MG TAB PO SCH ×2 (08:04→20:41)
[2018-12-10] MEDS: FLUTICASONE PROPIONATE NA SPR 16 GM BTL NAE SCH (08:05)
[2018-12-10] MEDS: FLUTICASONE/SALMETEROL 250/50 (ADVAIR) 14 PUFF/1 INHALER INH SCH ×2 (08:06→20:38)
[2018-12-10] MEDS: IPRATROPIUM BROMIDE/ALBUTEROL respimat INH INH SCH ×4 (08:06→20:37)
[2018-12-10] MEDS: GEMFIBROZIL 600 MG TAB PO SCH ×2 (08:07→20:40)
[2018-12-10] MEDS: SILVER SULFADIAZINE 1% CR 50 GM JAR TOP SCH (08:08)
[2018-12-10] MEDS: INSULIN GLARGINE SOLOSTAR 100 UNITS/ML 3 ML PEN SC SCH ×2 (08:09→20:33)
[2018-12-10] MEDS: DICLOFENAC SOD 1% GEL 100 GM TUBE EXT SCH ×4 (08:09→20:38)
[2018-12-10] MEDS: INSULIN ASPART 100 UNITS/ML 3 ML PEN SC SCH ×4 (08:12→20:36)
[2018-12-10] MEDS: FUROSEMIDE 40 MG in SYRINGE 0 ML IV SCH ×2 (09:53→22:25)
--- NOTE | 2018-12-10 10:09 | Hospitalist Progress Note ---
Date of Service December 10, 2018 Assessment & Plan (1) Syncope: This is a 63yo F with a PMH of morbid obesity, chronic atrial fibrillation on anticoagulation, DM II, HTN, HLD, diabetic neuropathy, COPD, NAVI noncompliant with CPAP, hypothyroidism and other medical problems listed below who presents after unwitnessed syncopal episode at home. -Likely post-micturition syncope, given story. Episode unwitnessed but family reports similar witnessed episodes in past -CT head without acute bleed, EKG with rate controlled A Fib, not hypoglycemic at time of event -Non-compliant with CPAP, so possibly related to CO2 retention -Ordered orthostatic vitals, 2D echo EF 60-65%, diastolic dysfunction+ -Monitor on telemetry -Fall precautions (2) Closed head injury: No concussion (3) Nasal bone fractures: Pain is controlled supplement, self-limiting (4) Facial contusion: CT head/face without acute intracranial abnormality. Bilateral nasal bone fractures with facial soft tissue injury as described above -No hematoma of nasal septum or fractures within the cervical spine -Apply ice, pain control -ENT follow-up upon discharge -Resume Pradaxa today (5) Acute respiratory failure with hypoxia: Hypoxic at 88% upon arrival, improved to 98% on 2L NC -In setting of COPD, flu ( PCR negative) -CXR without evidence of PNA. No leukocytosis -Appeared volume overloaded on exam. IV Lasix -Continue home inhalers, PRN duonebs (6) Leg wound, right: Chronic wound, s/p recent surgical debridement of L great toe by [facility] podiatry -Recently completed Keflex, continue Bactrim course -Wound care while in-patient (7) T2DM (type 2 diabetes mellitus): A1C of 7.2 in Nov 2018 -Hold home agents -Basal/bolus per protocol while inpatient. May require adjustment -BSG AC HS (8) HTN (hypertension): Controlled (9) HLD (hyperlipidemia): Continue gemfibrozil (10) Atrial fibrillation: Evidence of rate-controlled A fib on EKG -Given missed AM doses of diltiazem, Lopressor -Monitor on telemetry -Resume Pradaxa today (11) COPD (chronic obstructive pulmonary disease): Stable. Continue home inhalers, nebs PRN (12) CKD (chronic kidney disease) stage 3, GFR 30-59 ml/min: Kidney function at baseline. Continue to monitor (13) NAVI (obstructive sleep apnea): Non-compliant with CPAP, has upcoming sleep study -CO2 retention may be contributing to syncopal events/falls (14) GERD (gastroesophageal reflux disease): Continue PPI (15) Depression: Stable. Continue Wellbutrin (16) Hypothyroid: TSH wnl. Continue levothyroxine DVT Ppx: Resume Pradaxa today Code status: FULL PCP: Dr Vazquez Dispo: Discharge planning ordered (family feels patient needs more help at home) Subjective This is a 63yo F with a PMH of morbid obesity, chronic atrial fibrillation on anticoagulation, DM II, HTN, HLD, diabetic neuropathy, COPD, NAVI noncompliant with CPAP, hypothyroidism and other medical problems listed below who presents after unwitnessed syncopal episode at home. Patient got up to use the restroom this morning and then remembers landing on her face on bathroom floor. Denies any lightheadedness, chest pain, palpitations or SOB proceeding syncopal event. Family states she has had a few episodes similar to this at home in the past few months. Was brought to ED for further evaluation. Denies any fever or chills but has been coughing and feeling generally weak. Has multiple grandchildren that live with her who have + Flu A. Also has history of COPD and has been using inhalers. Has felt generally weak and has had worsening bilateral lower extremity edema. Denies chest pain, palpitations, nausea, vomiting, abdominal pain or diarrhea. Was recently discharged in Oct 2018 after being treated for RLE cellulitis 2/2 sheila. Has been following with [facility] podiatry and underwent surgical debridement of left first toe ulcer 2 weeks ago. Recently completed course of Keflex and is now on Bactrim. Patient is feeling much better today, less swelling, appetite is good. Denies nausea vomiting fevers or chills General Appearance: Awake alert and oriented x3, not in acute distress, afeb rile, morbidly obese, facial bruising, saturating 98% on 2L NC Head: Positive nasal trauma Eyes: normal inspection, PERRL, EOMI ENT: hearing grossly normal, facial swelling, nasal bones TTP with ice pack, pharynx normal (moist mucous membranes) Neck: supple, no JVD, no adenopathy Respiratory/Chest: lungs clear to auscultation. No wheezes, rales or rhonci. No respiratory distress or accessory muscle use Cardiovascular: irregular rate & rhythm, no murmur, normal peripheral pulses, 3+ BLE pitting edema Abdomen/GI: Large pannus, normal bowel sounds, soft, non-tender to palpation Extremities/Musculoskelatal: normal inspection, no calf tenderness, normal capillary refill, bilateral 2+ edema in the lower extremity, improving Neurologic/Psych: Nonfocal exam, normal affect Skin: normal color, warm/dry. L great toe with dressing in place Physical Exam Vital Signs (Past 24 Hours): Last Vital Signs Temp 36.8 C 12/10/18 06:58 Pulse 75 12/10/18 07:27 Resp 20 12/10/18 06:58 BP 112/69 12/10/18 06:58 Pulse Ox 95 12/10/18 06:58 Results & Data Laboratory Results Reviewed (1) Syncope Syncope type: unspecified Qualified Code(s): R55 - Syncope and collapse (2) Closed head injury Encounter type: initial encounter Qualified Code(s): S09.90XA - Unspecified injury of head, initial encounter (3) Nasal bone fractures Encounter type: initial encounter Fracture type: closed Qualified Code(s): S02.2XXA - Fracture of nasal bones, initial encounter for closed fracture (4) Facial contusion Encounter type: initial encounter Qualified Code(s): S00.83XA - Contusion of other part of head, initial encounter (5) T2DM (type 2 diabetes mellitus) 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 Diabetes mellitus complication status: with skin complications Diabetes mellitus complication detail: with other skin complication Qualified Code(s): E11.628 - Type 2 diabetes mellitus with other skin complications; Z79.4 - predatory animal exterminator (current) use of insulin (6) HTN (hypertension) Hypertension type: essential hypertension Qualified Code(s): I10 - Essential (primary) hypertension (7) HLD (hyperlipidemia) Hyperlipidemia type: mixed hyperlipidemia Qualified Code(s): E78.2 - Mixed hyperlipidemia (8) Atrial fibrillation Atrial fibrillation type: chronic Qualified Code(s): I48.2 - Chronic atrial fibrillation (9) COPD (chronic obstructive pulmonary disease) COPD type: unspecified COPD Qualified Code(s): J44.9 - Chronic obstructive pulmonary disease, unspecified (10) Hypothyroid Hypothyroidism type: unspecified Qualified Code(s): E03.9 - Hypothyroidism, unspecified
[2018-12-10] MEDS: ACETAMINOPHEN 325 MG TAB PO PRN ×2 (15:16→19:25)
[2018-12-10] MEDS: DABIGATRAN ETEXILATE 75 MG CAP PO SCH (20:44)
[2018-12-10] MEDS: ATORVASTATIN 40 MG TAB PO SCH (20:45)
[2018-12-11] MEDS: LEVOTHYROXINE SODIUM 112 MCG TABLET PO SCH (05:43)
[2018-12-11] MEDS: ACETAMINOPHEN 325 MG TAB PO PRN (05:46)
[2018-12-11 05:54] LABS: Hematocrit (blood only) 42.7 % (37-47); Hemoglobin 13.2 g/dL (12.0-16.0); Mean Corpuscular Hgb Conc 30.9 g/dL (32-36); Mean Corpuscular Volume 92.2 fL (80-100); Mean Platelet Volume 10.2 fL (7.4-10.4); Platelet Count 295 K/uL (130-400); RDW Coefficient of Variation 16.1 % (11.5-14.5); Red Blood Count 4.63 M/uL (4.2-5.4)
[2018-12-11 06:29] LABS: BUN Creatinine Ratio 19.5 (10-20); Calcium 8.5 mg/dl (8.5-10.1); Creatinine Clr Calc Pharmacy 45.4 ml/min; Est GFR (African American) 33.4; Est GFR (Non-African American) 28.9
[2018-12-11] MEDS: FLUTICASONE/SALMETEROL 250/50 (ADVAIR) 14 PUFF/1 INHALER INH SCH ×2 (08:28→21:06)
[2018-12-11] MEDS: INSULIN ASPART 100 UNITS/ML 3 ML PEN SC SCH ×4 (08:30→21:07)
[2018-12-11] MEDS: IPRATROPIUM BROMIDE/ALBUTEROL respimat INH INH SCH ×4 (08:30→21:06)
[2018-12-11] MEDS: INSULIN GLARGINE SOLOSTAR 100 UNITS/ML 3 ML PEN SC SCH ×2 (08:31→21:09)
[2018-12-11] MEDS: DABIGATRAN ETEXILATE 75 MG CAP PO SCH ×2 (08:31→21:08)
[2018-12-11] MEDS: GABAPENTIN 600 MG TAB PO SCH ×2 (08:31→21:05)
[2018-12-11] MEDS: BuPROPion SR 150 MG TABCR PO SCH ×2 (08:33→21:05)
[2018-12-11] MEDS: ALLOPURINOL 100 MG TAB PO SCH ×2 (08:33→21:05)
[2018-12-11] MEDS: METOPROLOL TARTRATE 25 MG TAB PO SCH ×2 (08:34→20:57)
[2018-12-11] MEDS: SULFAMETHOXAZOLE/TRIMETHOPRIM DS 800/160MG TAB PO SCH ×2 (08:34→21:08)
[2018-12-11] MEDS: FLUTICASONE PROPIONATE NA SPR 16 GM BTL NAE SCH (08:34)
[2018-12-11] MEDS: ASPIRIN 81 MG ECTAB PO SCH (08:34)
[2018-12-11] MEDS: PANTOprazole 40 MG TAB PO SCH (08:35)
[2018-12-11] MEDS: GEMFIBROZIL 600 MG TAB PO SCH ×2 (08:35→21:06)
[2018-12-11] MEDS: hydroCHLOROthiazide 25 MG TAB PO SCH (08:35)
[2018-12-11] MEDS: SILVER SULFADIAZINE 1% CR 50 GM JAR TOP SCH (08:36)
[2018-12-11] MEDS: VALSARTAN 80 MG TAB PO SCH (08:36)
[2018-12-11] MEDS: FUROSEMIDE 40 MG in SYRINGE 0 ML IV SCH (08:37)
[2018-12-11] MEDS: DICLOFENAC SOD 1% GEL 100 GM TUBE EXT SCH ×4 (08:42→20:56)
--- NOTE | 2018-12-11 11:08 | Hospitalist Progress Note ---
Date of Service December 11, 2018 Assessment & Plan (1) Syncope: This is a 63yo F with a PMH of morbid obesity, chronic atrial fibrillation on anticoagulation, DM II, HTN, HLD, diabetic neuropathy, COPD, NAVI noncompliant with CPAP, hypothyroidism and other medical problems listed below who presents after unwitnessed syncopal episode at home. -Likely post-micturition syncope, given story. Episode unwitnessed but family reports similar witnessed episodes in past -CT head without acute bleed, EKG with rate controlled A Fib, not hypoglycemic at time of event -Non-compliant with CPAP, so possibly related to CO2 retention -Ordered orthostatic vitals, 2D echo EF 60-65%, diastolic dysfunction+ -Monitor on telemetry -Fall precautions (2) Closed head injury: No concussion (3) Nasal bone fractures: Pain is controlled supplement, self-limiting (4) Facial contusion: CT head/face without acute intracranial abnormality. Bilateral nasal bone fractures with facial soft tissue injury as described above -No hematoma of nasal septum or fractures within the cervical spine -Apply ice, pain control -ENT follow-up upon discharge -Resume Pradaxa today (5) Acute respiratory failure with hypoxia: Hypoxic at 88% upon arrival, improved to 98% on 2L NC -In setting of COPD, flu ( PCR negative) -CXR without evidence of PNA. No leukocytosis -Appeared volume overloaded on exam. IV Lasix -Continue home inhalers, PRN duonebs (6) Leg wound, right: Chronic wound, s/p recent surgical debridement of L great toe by [facility] podiatry -Recently completed Keflex, continue Bactrim course -Wound care while in-patient (7) T2DM (type 2 diabetes mellitus): A1C of 7.2 in Nov 2018 -Hold home agents -Basal/bolus per protocol while inpatient. May require adjustment -BSG AC HS (8) HTN (hypertension): Controlled (9) HLD (hyperlipidemia): Continue gemfibrozil (10) Atrial fibrillation: Evidence of rate-controlled A fib on EKG -Given missed AM doses of diltiazem, Lopressor -Monitor on telemetry -Resume Pradaxa today (11) COPD (chronic obstructive pulmonary disease): Stable. Continue home inhalers, nebs PRN (12) CKD (chronic kidney disease) stage 3, GFR 30-59 ml/min: Kidney function at baseline. Continue to monitor, renal eval, Cr up, Stop HCTZ, Decrease Lasix to Daily dosing, Stop Valsartan (13) NAVI (obstructive sleep apnea): Non-compliant with CPAP, has upcoming sleep study -CO2 retention may be contributing to syncopal events/falls (14) GERD (gastroesophageal reflux disease): Continue PPI (15) Depression: Stable. Continue Wellbutrin (16) Hypothyroid: TSH wnl. Continue levothyroxine DVT Ppx: On Pradaxa Code status: FULL PCP: Dr Vazquez Dispo: Discharge planning ordered (family feels patient needs more help at home) Subjective This is a 63yo F with a PMH of morbid obesity, chronic atrial fibrillation on anticoagulation, DM II, HTN, HLD, diabetic neuropathy, COPD, NAVI noncompliant with CPAP, hypothyroidism and other medical problems listed below who presents after unwitnessed syncopal episode at home. Patient got up to use the restroom this morning and then remembers landing on her face on bathroom floor. Denies any lightheadedness, chest pain, palpitations or SOB proceeding syncopal event. Family states she has had a few episodes similar to this at home in the past few months. Was brought to ED for further evaluation. Denies any fever or chills but has been coughing and feeling generally weak. Has multiple grandchildren that live with her who have + Flu A. Also has history of COPD and has been using inhalers. Has felt generally weak and has had worsening bilateral lower extremity edema. Denies chest pain, palpitations, nausea, vomiting, abdominal pain or diarrhea. Was recently discharged in Oct 2018 after being treated for RLE cellulitis 2/2 sheila. Has been following with [facility] podiatry and underwent surgical debridement of left first toe ulcer 2 weeks ago. Recently completed course of Keflex and is now on Bactrim. Patient is feeling much better today, less swelling, appetite is good. Denies nausea vomiting fevers or chills General Appearance: Awake alert and oriented x3, not in acute distress, afebrile, morbidly obese, facial bruising, saturating 98% on 2L NC Head: Positive nasal trauma, Facial Ecchymosis now Eyes: normal inspection, PERRL, EOMI ENT: hearing grossly normal, facial swelling, nasal bones TTP with ice pack, pharynx normal (moist mucous membranes) Neck: supple, no JVD, no adenopathy Respiratory/Chest: lungs clear to auscultation. No wheezes, rales or rhonci. No respiratory distress or accessory muscle use Cardiovascular: irregular rate & rhythm, no murmur, normal peripheral pulses, 3+ BLE pitting edema Abdomen/GI: Large pannus, normal bowel sounds, soft, non-tender to palpation Extremities/Musculoskelatal: normal inspection, no calf tenderness, normal capillary refill, bilateral 3+ edema in the lower extremity, improved since admitted Neurologic/Psych: Nonfocal exam, normal affect Skin: normal color, warm/dry. L great toe with dressing in place Physical Exam Vital Signs (Past 24 Hours): Last Vital Signs Temp 36.3 C L 12/11/18 07:48 Pulse 70 12/11/18 08:42 Resp 22 12/11/18 07:48 BP 115/72 12/11/18 08:42 Pulse Ox 95 12/11/18 07:48 Results & Data Laboratory Results reviewed (1) Syncope Syncope type: unspecified Qualified Code(s): R55 - Syncope and collapse (2) Closed head injury Encounter type: initial encounter Qualified Code(s): S09.90XA - Unspecified injury of head, initial encounter (3) Nasal bone fractures Encounter type: initial encounter Fracture type: closed Qualified Code(s): S02.2XXA - Fracture of nasal bones, initial encounter for closed fracture (4) Facial contusion Encounter type: initial encounter Qualified Code(s): S00.83XA - Contusion of other part of head, initial encounter (5) T2DM (type 2 diabetes mellitus) 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 Diabetes mellitus complication status: with skin complications Diabetes mellitus complication detail: with other skin complication Qualified Code(s): E11.628 - Type 2 diabetes mellitus with other skin complications; Z79.4 - rat exterminator (current) use of insulin (6) HTN (hypertension) Hypertension type: essential hypertension Qualified Code(s): I10 - Essential (primary) hypertension (7) HLD (hyperlipidemia) Hyperlipidemia type: mixed hyperlipidemia Qualified Code(s): E78.2 - Mixed hyperlipidemia (8) Atrial fibrillation Atrial fibrillation type: chronic Qualified Code(s): I48.2 - Chronic atrial fibrillation (9) COPD (chronic obstructive pulmonary disease) COPD type: unspecified COPD Qualified Code(s): J44.9 - Chronic obstructive pulmonary disease, unspecified (10) Hypothyroid Hypothyroidism type: unspecified Qualified Code(s): E03.9 - Hypothyroidism, unspecified
--- NOTE | 2018-12-11 17:21 | Nephrology Consultation ---
Date of Consultation December 11, 2018 Assessment & Plan (1) CKD (chronic kidney disease) stage 3, GFR 30-59 ml/min: baseline creatinine 1.0-1.1; was at baseline on presentation -daily bmp -hold meds as below for now d/t [place] Present on Admission?: Yes (2) Acute renal failure (ARF): may relate to diuresis in setting of relative hypotension/diuresis efforts; also she's been back on arb/hctz only since arrival here (were d/c'd at last d/c and per pt not resumed though H&P med list does not reflect this). admission urine remarkable only for glucosuria; not oliguric; chemistries ok; volume status acceptable for now -agree w/ holding hctz, ARB, pm lasix; am lasix as below -cont strict I/O daily bmp -no indication yet for renal imaging or repeat uA -if continues to worsen despite above, may need to change to another abtc besides bactrim Present on Admission?: No (3) Edema: possibly multifactorial given obesity, on presentation low albumin (3.2); consider R heart failure,possible proteinuria (none on dipstick though) -daily bmp -ordered low na diet -cont daily standing wts -will put on gentle FR 1.8 L daily -not clear to me how overloaded she is at this point (and it's difficult to assess in pt with this body habitus) -agree w/ 40 mg IV lasix daily for now - put hold parameter for AM dose though Present on Admission?: Yes History of Present Illness Reason for Consultation: fluid overload/ edema management Requesting Physician: Dr Nicolas Manzano Attending Physician: Nicolas Manzano, DO History of Present Illness 63 y/o F whom I'm asked to see to help manage volume overload. She was admitted on 12/09 after unwitnessed syncope at home suspected postmicturition. PMH includes past similar syncopal episodes; NAVI nonadherent w/ CPAP, COPD, DM on insulin c/b neuropathy, class 3 obesity (BMI 56), hypothyroid, HTN, HL, a fib on pradaxa; ckd 3 w/ baseline creatinine 1.0-1.1. She has a facial contusion and nasal bone fractures on admission imaging. She had acute respiratory failure w/ sats 88%, improved w/ 02NC; concern for vol OL noted on exam. Her renal function was at baseline on admission; today trended up from 1.2 yesterday to 1.8. Of note she was admitted here 09/29-10/05/18 for diabetic foot wound; had presenting creatinine 2.1, improved to baseline by d/c. Her valsartan HCTZ was held at that d/c d/t inpt relative hypotension; though this was on her med list on presentation on 12/09, pt states she never resumed this. She was on both bactrim and lasix at admission. She does not have a avendaño; is about 2L negative since arrival. She has remained on 2L02NC since arrival. Her 320 mg daily valsartan and 25 mg daily hctz were resumed and both given through this am; bactrim continued. she had also been on lasix 40 mg IV bid since arrival, now cut back to 40 mg daily starting today. her sbp runs usually 110-120s; has been 90-120s past 24 hrs, but / checks past 24 hrs is in 90s. Allergies Allergy/AdvReac Type Severity Reaction Status Date / Time GIN Inhibitors Allergy Unknown UNK Verified 12/09/18 11:09 cat dander Allergy Unknown UNK Verified 12/09/18 11:09 codeine Allergy Unknown "CODEINE Verified 12/11/18 11:18 DERIVITIVES" house dust Allergy Unknown Unknown Verified 12/11/18 11:18 hydrocodone Allergy Unknown unknown Unverified 12/09/18 11:09 meperidine Allergy Unknown _ Verified 12/09/18 11:09 morphine Allergy Unknown "MORPHINE Verified 12/09/18 11:09 DERIVATIVES", MORPHINE IS OK pioglitazone Allergy Unknown UNK Verified 12/09/18 11:09 nickel AdvReac Rash Verified 12/09/18 11:09 Cockroach Allergy Unknown UNK Uncoded 12/09/18 11:09 Unclassified Drugs Allergy Unknown "ALLERGIC Uncoded 09/28/18 16:24 TO TREES" Home Medications Home Medications Medication Instructions Recorded Confirmed Type Humalog KwikPen Insulin 30 unit SUBCUT 1400 09/28/18 12/09/18 History Humalog KwikPen Insulin 30 unit SUBCUT HS 09/28/18 12/09/18 History Humalog KwikPen Insulin 35 unit SUBCUT QAM 09/28/18 12/09/18 History Lanpower Guevaraar U-100 Insulin 50 unit SUBCUT BID 09/28/18 12/09/18 History Pradaxa 150 mg PO BID 09/28/18 12/09/18 History allopurinol 100 mg PO BID 09/28/18 12/09/18 History aspirin [Aspirin Low Dose] 81 mg PO QAM 09/28/18 12/09/18 History atorvastatin 40 mg PO HS 09/28/18 12/09/18 History benzonatate 100 mg PO TID PRN 09/28/18 12/09/18 History diltiazem HCl 360 mg PO QAM 09/28/18 12/09/18 History empagliflozin 25 mg PO QAM 09/28/18 12/09/18 History fluticasone-salmeterol [Advair 1 inh INHALATION Q12H 09/28/18 12/09/18 History Diskus] furosemide 40 mg PO QAM 09/28/18 12/09/18 History gabapentin 600 mg PO BID 09/28/18 12/09/18 History gemfibrozil 600 mg PO BID 09/28/18 12/09/18 History ipratropium-albuterol 1 puff INHALATION QID 09/28/18 12/09/18 History levothyroxine 112 mcg PO QAM 09/28/18 12/09/18 History metoprolol tartrate 25 mg PO BID 09/28/18 12/09/18 History mometasone 2 spray INTRANASAL QAM 09/28/18 12/09/18 History silver sulfadiazine 1 applic TOPICAL QAM 09/28/18 12/09/18 History bupropion HCl 150 mg PO BID 12/09/18 12/09/18 History diclofenac sodium 2 g TOPICAL QID 12/09/18 12/09/18 History omeprazole 40 mg PO QAM 12/09/18 12/09/18 History sulfamethoxazole-trimethoprim 1 tab PO BID 12/09/18 12/09/18 History [Bactrim DS] valsartan-hydrochlorothiazide 1 tab PO QAM 12/09/18 12/09/18 History Patient History Medical History T2DM (type 2 diabetes mellitus) (Chronic) HTN (hypertension) (Chronic) HLD (hyperlipidemia) (Chronic) COPD (chronic obstructive pulmonary disease) (Chronic) NAVI (obstructive sleep apnea) (Chronic) Diabetic neuropathy (Chronic) CKD (chronic kidney disease) stage 3, GFR 30-59 ml/min (Chronic) GERD (gastroesophageal reflux disease) (Chronic) Depression (Chronic) Hypothyroid (Chronic) Gout (Chronic) Morbid obesity (Chronic) Atrial fibrillation (Chronic) Atrial fibrillation with rapid ventricular response (Resolved 07/14/14) Cellulitis (Resolved) Surgical History History of cholecystectomy (Resolved) History of hernia repair (Resolved) Family History Father Heart attack CAD (coronary artery disease) Mother Complication of surgery Other No significant family history T2DM (type 2 diabetes mellitus) Social History Communication Ability: Effective Beliefs That Will Affect Care: None marital status: Current Living Situation: Family Current Living Situation Comment: Lives at home with daugther, son in law and grandchildren Other Information That Helps Us Care for You: No Feels Safe at Home: No Safety Concerns: Feels Safe At This Time Smoking Status: Former smoker Hx Alcohol Use: No Hx Substance Use: No Review of Systems Constitutional: + fatigue and + weakness; no fever Eyes: no worsening vision Ear, Nose, Mouth, Throat: no dry mouth Respiratory: + dyspnea on exertion (stable chronic); no cough Cardiovascular: + edema (chronic stable); no chest pain, no orthopnea and no palpitations Gastrointestinal: no abdominal pain, no vomiting and no change in bowel habits Genitourinary (Female): + difficulty urinating (states has to move/rock at times to start stream - chronic issue) and + urinary hesitancy; no dysuria and no urinary frequency Musculoskeletal: + swelling; no back pain Integumentary: + non-healing lesions Neurologic: as per Subjective / HPI, + falls and + numbness (BLE chronic) Psychiatric: no behavioral changes Endocrine: + fatigue Hematologic / Lymphatic: + easy bleeding Physical Exam Vital Signs (Past 24 Hours): Last Vital Signs Temp 36.7 C 12/11/18 15:51 Pulse 69 12/11/18 16:42 Resp 20 12/11/18 15:51 BP 97/62 L 12/11/18 15:51 Pulse Ox 95 12/11/18 15:51 Constitutional: well developed, well nourished and + morbidly obese sitting up in chair on 2L 02NC eating heartily Eyes: EOM intact bilaterally ENMT: Ears: no external ear abnormality Nose: no external nose abnormality Mouth: + dry oral mucous membranes Neck: no nuchal rigidity Respiratory: normal respiratory effort Auscultation: + diminished lung sounds Cardiovascular: Rate/Rhythm: regular rate and regular rhythm Extremities: + edema (2+ dependent) Gastrointestinal (Abdomen): Inspection/Auscultation: normal bowel sounds Percussion/Palpation: abdomen soft; abdomen nontender Musculoskeletal: Extremities: strength 5/5 throughout Skin: no rashes, warm and dry toe wound not examined Neurologic: morris, fluent speech, no tremor Psychiatric: A+Ox3, euthymic affect Genitourinary: n ofoley Results & Data Laboratory Results Abnormal lab results 12/10/18 12/10/18 12/11/18 Range/Units 16:40 20:20 05:39 MCHC 30.9 L (32-36) g/dL RDW Std Deviation 54.0 H (36.4-46.3) fL RDW Coeff of Faraz 16.1 H (11.5-14.5) % Sodium (136-145) mmol/L BUN (7-18) mg/dl Creatinine (0.6-1.2) mg/dl Glucose (70-99) mg/dl POC Glucose 134 H 130 H (70-99) 12/11/18 12/11/18 12/11/18 Range/Units 05:39 07:35 11:40 MCHC (32-36) g/dL RDW Std Deviation (36.4-46.3) fL RDW Coeff of Faraz (11.5-14.5) % Sodium 134 L (136-145) mmol/L BUN 36 H (7-18) mg/dl Creatinine 1.83 H D (0.6-1.2) mg/dl Glucose 159 H (70-99) mg/dl POC Glucose 161 H 152 H (70-99) 12/11/18 12/11/18 Range/Units 11:50 17:00 MCHC (32-36) g/dL RDW Std Deviation (36.4-46.3) fL RDW Coeff of Faraz (11.5-14.5) % Sodium (136-145) mmol/L BUN (7-18) mg/dl Creatinine (0.6-1.2) mg/dl Glucose (70-99) mg/dl POC Glucose 160 H 127 H (70-99) Diagnostic Findings TTE 12/10/18 moderate [facility] EF 60-65% w/o valvular dz and RV sz/fnxn wnl cxr 12/09 COMPARISON: Chest 09/28/2018. FINDINGS: The heart remains mildly enlarged. No pneumothorax. No pleural effusions. Slight prominence of interstitial markings persists. This may be chronic. No new focal lung consolidations. No evidence for pulmonary edema. IMPRESSION: No significant change compared to the prior study. No acute process. Stable mild cardiomegaly. (1) Acute renal failure (ARF) Acute renal failure type: unspecified Qualified Code(s): N17.9 - Acute kidney failure, unspecified (2) Edema Edema type: localized Qualified Code(s): R60.0 - Localized edema
[2018-12-11] MEDS: ATORVASTATIN 40 MG TAB PO SCH (21:05)
[2018-12-12] MEDS: MoRPHine SULFATE 4 MG/ML 1 ML CARP\\VIAL IV PRN (00:02)
[2018-12-12] MEDS: LEVOTHYROXINE SODIUM 112 MCG TABLET PO SCH (06:30)
[2018-12-12 06:53] LABS: Hematocrit (blood only) 40.3 % (37-47); Hemoglobin 12.7 g/dL (12.0-16.0); Mean Corpuscular Hgb Conc 31.5 g/dL (32-36); Mean Corpuscular Volume 91.6 fL (80-100); Mean Platelet Volume 10.4 fL (7.4-10.4); Platelet Count 267 K/uL (130-400); RDW Standard Deviation 53.3 fL (36.4-46.3); White Blood Count 9.43 K/uL (4.8-10.8)
[2018-12-12 07:11] LABS: Albumin Globulin Ratio 0.7 (0.9-2); Albumin Level 2.8 gm/dl (3.4-5.0); BUN Creatinine Ratio 21.1 (10-20); Bilirubin,Total 0.3 mg/dl (0.2-1); Creatinine Clr Calc Pharmacy 38.1 ml/min; Est GFR (African American) 26.6; Globulin 4.1 gm/dl (2.5-4.0); Potassium 4.3 mmol/L (3.5-5.1); Total Protein 6.9 gm/dl (6.4-8.2)
[2018-12-12] MEDS: FLUTICASONE PROPIONATE NA SPR 16 GM BTL NAE SCH (08:05)
[2018-12-12] MEDS: FLUTICASONE/SALMETEROL 250/50 (ADVAIR) 14 PUFF/1 INHALER INH SCH ×2 (08:05→20:49)
[2018-12-12] MEDS: IPRATROPIUM BROMIDE/ALBUTEROL respimat INH INH SCH ×4 (08:06→20:50)
[2018-12-12] MEDS: SILVER SULFADIAZINE 1% CR 50 GM JAR TOP SCH (08:06)
[2018-12-12] MEDS: METOPROLOL TARTRATE 25 MG TAB PO SCH ×2 (08:06→20:41)
[2018-12-12] MEDS: GEMFIBROZIL 600 MG TAB PO SCH ×2 (08:07→20:51)
[2018-12-12] MEDS: DABIGATRAN ETEXILATE 75 MG CAP PO SCH ×2 (08:07→20:52)
[2018-12-12] MEDS: ASPIRIN 81 MG ECTAB PO SCH (08:07)
[2018-12-12] MEDS: SULFAMETHOXAZOLE/TRIMETHOPRIM DS 800/160MG TAB PO SCH (08:07)
[2018-12-12] MEDS: GABAPENTIN 600 MG TAB PO SCH ×2 (08:08→20:51)
[2018-12-12] MEDS: PANTOprazole 40 MG TAB PO SCH (08:08)
[2018-12-12] MEDS: ALLOPURINOL 100 MG TAB PO SCH ×2 (08:09→20:53)
[2018-12-12] MEDS: BuPROPion SR 150 MG TABCR PO SCH ×2 (08:09→20:52)
[2018-12-12] MEDS: DICLOFENAC SOD 1% GEL 100 GM TUBE EXT SCH ×4 (08:09→20:52)
[2018-12-12] MEDS: INSULIN GLARGINE SOLOSTAR 100 UNITS/ML 3 ML PEN SC SCH ×2 (08:10→20:50)
[2018-12-12] MEDS: INSULIN ASPART 100 UNITS/ML 3 ML PEN SC SCH ×4 (08:12→20:52)
--- NOTE | 2018-12-12 08:16 | Nephrology Progress Note ---
Date of Service December 12, 2018 Assessment & Plan (1) CKD (chronic kidney disease) stage 3, GFR 30-59 ml/min: baseline creatinine 1.0-1.1; was at baseline on presentation -daily bmp -cont to hold meds as below for now d/t [place] (2) Acute renal failure (ARF): may relate to diuresis in setting of relative hypotension/diuresis efforts; also she's been back on arb/hctz only since arrival here (were d/c'd at last d/c and per pt not resumed though H&P med list she brought did not reflect this). admission urine remarkable only for glucosuria; not oliguric; chemistries ok; volume status acceptable for now -agree w/ holding hctz, ARB >>consider reintroducing lasix 20 mg iv bid in AM tomorrow depending on labs, PE -cont strict I/O daily bmp -no indication yet for renal imaging or repeat uA -pls consider another abtc besides bactrim if possible to avoid confounding factors (3) Edema: multifactorial given obesity, on presentation low albumin (3.2); consider R heart failure,possible proteinuria (none on dipstick though) -daily bmp -cont low na diet -cont daily standing wts -cont gentle FR 1.8 L daily -not clear to me how overloaded she is at this point (and it's difficult to assess in pt with this body habitus) - clearly some fluid on board -for now, 20 mg IV lasix bid w/ goal of maintaining wt or at least not tipping too far to positive fluid balance while renal function stabilizes Subjective seen on rounds this am. sitting up in chair; R neck swollen as hematoma expands slowly; does not feel her legs (no ain either) so can't comment on edema. no sob unless moves; denies voiding concerns; no abd pain or n/v. no rash. not sob. good appetite; no f; no weakness Physical Exam Vital Signs (Past 24 Hours): Last Vital Signs Temp 36.6 C 12/12/18 07:31 Pulse 64 12/12/18 07:46 Resp 18 12/12/18 07:31 BP 106/67 12/12/18 07:31 Pulse Ox 96 12/12/18 04:19 Constitutional: well developed, well nourished and + morbidly obese sitting in chair on ra Eyes: EOM intact bilaterally ENMT: Ears: no external ear abnormality Nose: no external nose abnormality Mouth: + dry oral mucous membranes Neck: no nuchal rigidity Respiratory: normal respiratory effort Auscultation: + diminished lung sounds Cardiovascular: Rate/Rhythm: regular rate and regular rhythm Extremities: + edema (2+ dependent) Gastrointestinal (Abdomen): Inspection/Auscultation: normal bowel sounds Percussion/Palpation: abdomen soft; abdomen nontender Musculoskeletal: Extremities: strength 5/5 throughout Skin: no rashes, warm and dry Trauma: + periorbital ecchymosis (and w/ greater extension today to R neck than yesterday) Neurologic: morris and fluet speech Psychiatric: A+Ox3, euthymic affect Results & Data Laboratory Results Abnormal lab results 12/11/18 12/11/18 12/11/18 Range/Units 11:40 11:50 17:00 MCHC (32-36) g/dL RDW Std Deviation (36.4-46.3) fL RDW Coeff of Faraz (11.5-14.5) % Sodium (136-145) mmol/L BUN (7-18) mg/dl Creatinine (0.6-1.2) mg/dl BUN/Creatinine Ratio (10-20) Glucose (70-99) mg/dl POC Glucose 152 H 160 H 127 H (70-99) Calcium (8.5-10.1) mg/dl Albumin (3.4-5.0) gm/dl Globulin (2.5-4.0) gm/dl Albumin/Globulin Ratio (0.9-2) 12/11/18 12/12/18 12/12/18 Range/Units 20:37 06:14 06:14 MCHC 31.5 L (32-36) g/dL RDW Std Deviation 53.3 H (36.4-46.3) fL RDW Coeff of Faraz 16.0 H (11.5-14.5) % Sodium 132 L (136-145) mmol/L BUN 47 H (7-18) mg/dl Creatinine 2.21 H D (0.6-1.2) mg/dl BUN/Creatinine Ratio 21.1 H (10-20) Glucose 156 H (70-99) mg/dl POC Glucose 134 H (70-99) Calcium 8.0 L (8.5-10.1) mg/dl Albumin 2.8 L (3.4-5.0) gm/dl Globulin 4.1 H (2.5-4.0) gm/dl Albumin/Globulin Ratio 0.7 L (0.9-2) 12/12/18 Range/Units 07:44 MCHC (32-36) g/dL RDW Std Deviation (36.4-46.3) fL RDW Coeff of Faraz (11.5-14.5) % Sodium (136-145) mmol/L BUN (7-18) mg/dl Creatinine (0.6-1.2) mg/dl BUN/Creatinine Ratio (10-20) Glucose (70-99) mg/dl POC Glucose 173 H (70-99) Calcium (8.5-10.1) mg/dl Albumin (3.4-5.0) gm/dl Globulin (2.5-4.0) gm/dl Albumin/Globulin Ratio (0.9-2) (1) Acute renal failure (ARF) Acute renal failure type: unspecified Qualified Code(s): N17.9 - Acute kidney failure, unspecified (2) Edema Edema type: localized Qualified Code(s): R60.0 - Localized edema
[2018-12-12] MEDS ORDERED: FUROSEMIDE 40 MG in SYRINGE 0 ML IV SCH (09:00)
--- NOTE | 2018-12-12 11:44 | Hospitalist Progress Note ---
Date of Service December 12, 2018 Assessment & Plan (1) Syncope: This is a 63yo F with a PMH of morbid obesity, chronic atrial fibrillation on anticoagulation, DM II, HTN, HLD, diabetic neuropathy, COPD, NAVI noncompliant with CPAP, hypothyroidism and other medical problems listed below who presents after unwitnessed syncopal episode at home. -Likely post-micturition syncope, given story. Episode unwitnessed but family reports similar witnessed episodes in past -CT head without acute bleed, EKG with rate controlled A Fib, not hypoglycemic at time of event -Non-compliant with CPAP, so possibly related to CO2 retention -Ordered orthostatic vitals, 2D echo EF 60-65%, diastolic dysfunction+ -Telemetry -Fall precautions (2) Closed head injury: No concussion (3) Nasal bone fractures: Pain is controlled supplement, self-limiting (4) Facial contusion: CT head/face without acute intracranial abnormality. Bilateral nasal bone fractures with facial soft tissue injury as described above -No hematoma of nasal septum or fractures within the cervical spine -Apply ice, pain control -ENT follow-up upon discharge -Back on Pradaxa (5) Acute respiratory failure with hypoxia: Hypoxic at 88% upon arrival, improved to 98% on 2L NC -In setting of COPD, flu ( PCR negative) -CXR without evidence of PNA. No leukocytosis -Appeared volume overloaded on exam. IV Lasix -Continue home inhalers, PRN duonebs (6) Leg wound, right: Chronic wound, s/p [facility] -Add PO Doxy sec to renal issues -Wound care while in-patient (7) T2DM (type 2 diabetes mellitus): A1C of 7.2 in Nov 2018 -Hold home agents -Basal/bolus per protocol while inpatient. May require adjustment -BSG AC HS (8) HTN (hypertension): Controlled (9) HLD (hyperlipidemia): Continue gemfibrozil (10) Atrial fibrillation: Evidence of rate-controlled A fib on EKG -Given missed AM doses of diltiazem, Lopressor -Monitor on telemetry -Resume Pradaxa today (11) COPD (chronic obstructive pulmonary disease): Stable. Continue home inhalers, nebs PRN (12) CKD (chronic kidney disease) stage 3, GFR 30-59 ml/min: Kidney function at baseline. Continue to monitor, renal eval, Cr up today again, Stop HCTZ, Decrease Lasix to Daily dosing, Stop Valsartan (13) NAVI (obstructive sleep apnea): Non-compliant with CPAP, has upcoming sleep study -CO2 retention may be contributing to syncopal events/falls (14) GERD (gastroesophageal reflux disease): Continue PPI (15) Depression: Stable. Continue Wellbutrin (16) Hypothyroid: TSH wnl. Continue levothyroxine DVT Ppx: On Pradaxa, DC when more fluid off and dry weight maximized Code status: FULL PCP: Dr Vazquez Dispo: Discharge planning ordered (family feels patient needs more help at home) Subjective This is a 63yo F with a PMH of morbid obesity, chronic atrial fibrillation on anticoagulation, DM II, HTN, HLD, diabetic neuropathy, COPD, NAVI noncompliant with CPAP, hypothyroidism and other medical problems listed below who presents after unwitnessed syncopal episode at home. Patient got up to use the restroom this morning and then remembers landing on her face on bathroom floor. Denies any lightheadedness, chest pain, palpitations or SOB proceeding syncopal event. Family states she has had a few episodes similar to this at home in the past few months. Was brought to ED for further evaluation. Denies any fever or chills but has been coughing and feeling generally weak. Has multiple grandchildren that live with her who have + Flu A. Also has history of COPD and has been using inhalers. Has felt generally weak and has had worsening bilateral lower extremity edema. Denies chest pain, palpitations, nausea, vomiting, abdominal pain or diarrhea. Was recently discharged in Oct 2018 after being treated for RLE cellulitis 2/2 sheila. Has been following with [facility] podiatry and underwent surgical debridement of left first toe ulcer 2 weeks ago. Recently completed course of Keflex and is now on Bactrim. Patient is feeling much better each day, less swelling, appetite is good. Denies nausea vomiting fevers or chills General Appearance: Awake alert and oriented x3, not in acute distress, afebrile, morbidly obese, facial bruising, saturating 94% on RA Head: Positive nasal trauma, Facial Ecchymosis Improved Eyes: normal inspection, PERRL, EOMI ENT: hearing grossly normal, facial swelling, nasal bones TTP with ice pack, pharynx normal (moist mucous membranes) Neck: supple, no JVD, no adenopathy Respiratory/Chest: lungs clear to auscultation. No wheezes, rales or rhonci. No respiratory distress or accessory muscle use Cardiovascular: irregular rate & rhythm, no murmur, normal peripheral pulses, 3+ BLE pitting edema Abdomen/GI: Large pannus, normal bowel sounds, soft, non-tender to palpation Extremities/Musculoskelatal: normal inspection, no calf tenderness, normal capillary refill, bilateral 3+ edema in the lower extremity, improved since admitted Neurologic/Psych: Nonfocal exam, normal affect Skin: normal color, warm/dry. L great toe with dressing in place Physical Exam Vital Signs (Past 24 Hours): Last Vital Signs Temp 36.7 C 12/12/18 11:22 Pulse 68 12/12/18 11:22 Resp 20 12/12/18 11:22 BP 102/68 12/12/18 11:22 Pulse Ox 94 12/12/18 11:22 Results & Data Laboratory Results Current Diagnoses Hypothyroidism, unspecified (12/09/18) Type 2 diabetes mellitus with other skin complications (12/09/18) Mixed hyperlipidemia (12/09/18) Major depressive disorder, single episode, unspecified (12/09/18) Obstructive sleep apnea (adult) (pediatric) (12/09/18) Essential (primary) hypertension (12/09/18) Chronic atrial fibrillation (12/09/18) Chronic obstructive pulmonary disease, unspecified (12/09/18) Acute respiratory failure with hypoxia (12/09/18) Gastro-esophageal reflux disease without esophagitis (12/09/18) Acute kidney failure, unspecified (12/09/18) Chronic kidney disease, stage 3 (moderate) (12/09/18) Syncope and collapse (12/09/18) Localized edema (12/09/18) Contusion of other part of head, initial encounter (12/09/18) Fracture of nasal bones, initial encounter for closed fracture (12/09/18) Unspecified injury of head, initial encounter (12/09/18) Unspecified open wound, right lower leg, initial encounter (12/09/18) assisted (current) use of insulin (12/09/18) Allergies GIN Inhibitors Allergy (Unknown, Verified 12/09/18 11:09) UNK cat dander Allergy (Unknown, Verified 12/09/18 11:09) UNK codeine Allergy (Unknown, Verified 12/11/18 11:18) "CODEINE DERIVITIVES" house dust Allergy (Unknown, Verified 12/11/18 11:18) Unknown hydrocodone Allergy (Unknown, Unverified 12/09/18 11:09) unknown meperidine Allergy (Unknown, Verified 12/09/18 11:09) _ morphine Allergy (Unknown, Verified 12/09/18 11:09) "MORPHINE DERIVATIVES", MORPHINE IS OK pioglitazone Allergy (Unknown, Verified 12/09/18 11:09) UNK nickel Adverse Reaction (Verified 12/09/18 11:09) Rash Cockroach Allergy (Unknown, Uncoded 12/09/18 11:09) UNK Unclassified Drugs Allergy (Unknown, Uncoded 09/28/18 16:24) "ALLERGIC TO TREES" Height/Weight/Isolation Height 5 ft 4 in Weight 149.5 kg Chemistry 12/11/18 12/12/18 05:39 06:14 Sodium 134 L 132 L Potassium 4.0 4.3 Chloride 99 98 Carbon Dioxide 27 26 Anion Gap 8.0 8.0 BUN 36 H 47 H Creatinine 1.83 H D 2.21 H D Glucose 159 H 156 H Microbiology 12/09/18 10:10 Blood Blood Culture - Preliminary No growth to date. 12/09/18 10:00 Blood Blood Culture - Preliminary No growth to date. 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 home use Diabetes mellitus complication status: with skin complications Diabetes mellitus complication detail: with other skin complication Qualified Code(s): E11.628 - Type 2 diabetes mellitus with other skin complications; Z79.4 - assisted (current) use of insulin (6) HTN (hypertension) Hypertension type: essential hypertension Qualified Code(s): I10 - Essential (primary) hypertension (7) HLD (hyperlipidemia) Hyperlipidemia type: mixed hyperlipidemia Qualified Code(s): E78.2 - Mixed hyperlipidemia (8) Atrial fibrillation Atrial fibrillation type: chronic Qualified Code(s): I48.2 - Chronic atrial fibrillation (9) COPD (chronic obstructive pulmonary disease) COPD type: unspecified COPD Qualified Code(s): J44.9 - Chronic obstructive pulmonary disease, unspecified (10) Hypothyroid Hypothyroidism type: unspecified Qualified Code(s): E03.9 - Hypothyroidism, unspecified
[2018-12-12] MEDS: ACETAMINOPHEN 325 MG TAB PO PRN ×2 (12:35→22:52)
[2018-12-12] MEDS: FUROSEMIDE 20 MG in SYRINGE 0 ML IV SCH (20:50)
[2018-12-12] MEDS: ATORVASTATIN 40 MG TAB PO SCH (20:51)
[2018-12-12] MEDS: DOXYCYCLINE HYCLATE 100 MG CAP PO SCH (20:52)
[2018-12-13 06:10] LABS: Hematocrit (blood only) 40.4 % (37-47); Hemoglobin 13.1 g/dL (12.0-16.0); Mean Corpuscular Hgb Conc 32.4 g/dL (32-36); Mean Corpuscular Volume 91.2 fL (80-100); Mean Platelet Volume 10.5 fL (7.4-10.4); Platelet Count 269 K/uL (130-400); RDW Standard Deviation 52.7 fL (36.4-46.3); Red Blood Count 4.43 M/uL (4.2-5.4); White Blood Count 8.71 K/uL (4.8-10.8)
[2018-12-13] MEDS: LEVOTHYROXINE SODIUM 112 MCG TABLET PO SCH (06:35)
[2018-12-13 06:40] LABS: Albumin Level 2.8 gm/dl (3.4-5.0); BUN Creatinine Ratio 23.5 (10-20); Calcium 8.4 mg/dl (8.5-10.1); Creatinine Clr Calc Pharmacy 38.3 ml/min; Est GFR (African American) 26.8; Est GFR (Non-African American) 23.1; Potassium 4.1 mmol/L (3.5-5.1)
[2018-12-13 06:42] LABS: Albumin Globulin Ratio 0.7 (0.9-2); Bilirubin,Total 0.2 mg/dl (0.2-1); Total Protein 6.8 gm/dl (6.4-8.2)
[2018-12-13] MEDS: FLUTICASONE/SALMETEROL 250/50 (ADVAIR) 14 PUFF/1 INHALER INH SCH ×2 (08:19→21:28)
[2018-12-13] MEDS: IPRATROPIUM BROMIDE/ALBUTEROL respimat INH INH SCH ×4 (08:20→21:28)
[2018-12-13] MEDS: ASPIRIN 81 MG ECTAB PO SCH (08:21)
[2018-12-13] MEDS: GEMFIBROZIL 600 MG TAB PO SCH ×2 (08:21→21:31)
[2018-12-13] MEDS: PANTOprazole 40 MG TAB PO SCH (08:21)
[2018-12-13] MEDS: DOXYCYCLINE HYCLATE 100 MG CAP PO SCH ×2 (08:21→21:30)
[2018-12-13] MEDS: ALLOPURINOL 100 MG TAB PO SCH ×2 (08:22→21:34)
[2018-12-13] MEDS: BuPROPion SR 150 MG TABCR PO SCH ×2 (08:22→21:33)
[2018-12-13] MEDS: DABIGATRAN ETEXILATE 75 MG CAP PO SCH ×2 (08:22→21:31)
[2018-12-13] MEDS: GABAPENTIN 600 MG TAB PO SCH ×2 (08:23→21:34)
[2018-12-13] MEDS: INSULIN GLARGINE SOLOSTAR 100 UNITS/ML 3 ML PEN SC SCH ×2 (08:24→21:29)
[2018-12-13] MEDS: INSULIN ASPART 100 UNITS/ML 3 ML PEN SC SCH ×4 (08:28→21:30)
[2018-12-13] MEDS: FLUTICASONE PROPIONATE NA SPR 16 GM BTL NAE SCH (08:29)
[2018-12-13] MEDS: SILVER SULFADIAZINE 1% CR 50 GM JAR TOP SCH ×2 (08:30→08:48)
[2018-12-13] MEDS: DICLOFENAC SOD 1% GEL 100 GM TUBE EXT SCH ×4 (08:30→21:32)
[2018-12-13] MEDS: ACETAMINOPHEN 325 MG TAB PO PRN (09:08)
[2018-12-13] MEDS: METOPROLOL TARTRATE 25 MG TAB PO SCH ×2 (09:08→21:31)
[2018-12-13] MEDS: FUROSEMIDE 20 MG in SYRINGE 0 ML IV SCH (09:09)
--- NOTE | 2018-12-13 14:12 | Hospitalist Progress Note ---
Date of Service December 13, 2018 Assessment & Plan (1) Syncope: This is a 63yo F with a PMH of morbid obesity, chronic atrial fibrillation on anticoagulation, DM II, HTN, HLD, diabetic neuropathy, COPD, NAVI noncompliant with CPAP, hypothyroidism and other medical problems listed below who presents after unwitnessed syncopal episode at home. -Likely post-micturition syncope, given story. Episode unwitnessed but family reports similar witnessed episodes in past -CT head without acute bleed, EKG with rate controlled A Fib, not hypoglycemic at time of event -Non-compliant with CPAP, so possibly related to CO2 retention -Ordered orthostatic vitals, 2D echo EF 60-65%, diastolic dysfunction+ -Telemetry -Fall precautions (2) Closed head injury: No concussion (3) Nasal bone fractures: Pain is controlled supplement, self-limiting (4) Facial contusion: CT head/face without acute intracranial abnormality. Bilateral nasal bone fractures with facial soft tissue injury as described above -No hematoma of nasal septum or fractures within the cervical spine -Apply ice, pain control -ENT follow-up upon discharge -Back on Pradaxa (5) Acute respiratory failure with hypoxia: Hypoxic at 88% upon arrival, improved to 98% on 2L NC -In setting of COPD, flu ( PCR negative) -CXR without evidence of PNA. No leukocytosis -Appeared volume overloaded on exam. IV Lasix -Continue home inhalers, PRN duonebs (6) Leg wound, right: Chronic wound, s/p [facility] -Add PO Doxy sec to renal issues -Wound care while in-patient (7) T2DM (type 2 diabetes mellitus): A1C of 7.2 in Nov 2018 -Hold home agents -Basal/bolus per protocol while inpatient. May require adjustment -BSG AC HS (8) HTN (hypertension): Controlled (9) HLD (hyperlipidemia): Continue gemfibrozil (10) Atrial fibrillation: Evidence of rate-controlled A fib on EKG -Given missed AM doses of diltiazem, Lopressor -Monitor on telemetry -Resume Pradaxa today (11) COPD (chronic obstructive pulmonary disease): Stable. Continue home inhalers, nebs PRN (12) CKD (chronic kidney disease) stage 3, GFR 30-59 ml/min: LISA Creatinine 2.2 today Will hold Lasix Monitor BMP Nephro on board (13) NAVI (obstructive sleep apnea): Non-compliant with CPAP, has upcoming sleep study -CO2 retention may be contributing to syncopal events/falls (14) GERD (gastroesophageal reflux disease): Continue PPI (15) Depression: Stable. Continue Wellbutrin (16) Hypothyroid: TSH wnl. Continue levothyroxine DVT Ppx: On Pradaxa, DC when more fluid off and dry weight maximized Code status: FULL PCP: Dr Vazquez Dispo: Discharge planning ordered (family feels patient needs more help at home) Subjective Pt was seen and examined Sitting at the edge bed with no distress Denies any chest pain, palpitation and sob Physical Exam Vital Signs (Past 24 Hours): Last Vital Signs Temp 36.6 C 12/13/18 11:41 Pulse 67 12/13/18 11:41 Resp 20 12/13/18 11:41 BP 109/62 12/13/18 11:41 Pulse Ox 96 12/13/18 12:00 Physical Exam: General- No acute distress Head- atraumatic, bruises accross for head and facial area Eyes- PERRL, EOMI, ENT- oropharynx clear Neck- supple, no JVD Lungs- No wheezing Heart- regular rhythm; no murmur Abdomen- normal bowel sounds, soft, nontender Extremities- no calf tenderness Neuro- alert, oriented x 3; PERRL, EOMI; Skin- warm & dry (1) Nasal bone fractures Encounter type: initial encounter Fracture type: closed Qualified Code(s): S02.2XXA - Fracture of nasal bones, initial encounter for closed fracture (2) T2DM (type 2 diabetes mellitus) Diabetes mellitus complication detail: with other skin complication Diabetes mellitus complication status: with skin complications 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 use Qualified Code(s): E11.628 - Type 2 diabetes mellitus with other skin complications; Z79.4 - [facility] (current) use of insulin (3) Atrial fibrillation Atrial fibrillation type: chronic Qualified Code(s): I48.2 - Chronic atrial fibrillation (4) Closed head injury Encounter type: initial encounter Qualified Code(s): S09.90XA - Unspecified injury of head, initial encounter (5) HLD (hyperlipidemia) Hyperlipidemia type: mixed hyperlipidemia Qualified Code(s): E78.2 - Mixed hyperlipidemia (6) Hypothyroid Hypothyroidism type: unspecified Qualified Code(s): E03.9 - Hypothyroidism, unspecified (7) Syncope Syncope type: unspecified Qualified Code(s): R55 - Syncope and collapse (8) Facial contusion Encounter type: initial encounter Qualified Code(s): S00.83XA - Contusion of other part of head, initial encounter (9) COPD (chronic obstructive pulmonary disease) COPD type: unspecified COPD Qualified Code(s): J44.9 - Chronic obstructive pulmonary disease, unspecified (10) HTN (hypertension) Hypertension type: essential hypertension Qualified Code(s): I10 - Essential (primary) hypertension
[2018-12-13] MEDS: ATORVASTATIN 40 MG TAB PO SCH (21:31)
[2018-12-14] MEDS: ACETAMINOPHEN 325 MG TAB PO PRN (03:36)
[2018-12-14] MEDS: LEVOTHYROXINE SODIUM 112 MCG TABLET PO SCH (05:55)
[2018-12-14 07:34] LABS: BUN Creatinine Ratio 30.8 (10-20); Calcium 8.4 mg/dl (8.5-10.1); Creatinine Clr Calc Pharmacy 52.2 ml/min; Est GFR (Non-African American) 33.7; Potassium 4.4 mmol/L (3.5-5.1)
--- NOTE | 2018-12-14 07:55 | Nephrology Progress Note ---
Date of Service December 14, 2018 Assessment & Plan (1) CKD (chronic kidney disease) stage 3, GFR 30-59 ml/min: baseline creatinine 1.0-1.1; was at baseline on presentation -daily bmp -cont to hold meds as below for now d/t [place] (2) Acute renal failure (ARF): IMPROVING. nonoliguric and prerenal may relate to diuresis in setting of relative hypotension/diuresis efforts; also she's been back on arb/hctz only since arrival here (were d/c'd at last d/c and per pt not resumed though H&P med list she brought did not reflect this). admission urine remarkable only for glucosuria; not oliguric; chemistries ok; volume status acceptable for now -agree w/ holding hctz, ARB; avoid further bactrim -cont strict I/O daily bmp -no indication yet for renal imaging or repeat uA -she is still relatively hypotensive and so would not give further diuretics just yet though she will need them-- when appropriate recommend resuming OP daily 40 mg lasix -I modified her home med list to remove hctz/valsartan -at some point after d/c DO recommend introducing low dose ARB for heart/renal -no renal OP f/u needed unless further issues arise but would monitor bmp q1-2 wks after hospital d/c for 4-6 wks as meds titrated -will sign off; pls call if ? (3) Edema: multifactorial given obesity, on presentation low albumin (3.2); consider R heart failure,possible proteinuria (none on dipstick though) -daily bmp -cont low na diet -cont daily standing wts -cont gentle FR 1.8 L daily -not clear to me how overloaded she is at this point (and it's difficult to assess in pt with this body habitus) - clearly some fluid on board -for now, hold diuretics until renal function stabilizes Physical Exam Vital Signs (Past 24 Hours): Last Vital Signs Temp 36.5 C 12/14/18 04:02 Pulse 78 12/14/18 04:02 Resp 16 12/14/18 04:02 BP 100/52 L 12/14/18 04:02 Pulse Ox 96 12/14/18 04:02 Constitutional: well developed, well nourished and + morbidly obese Eyes: EOM intact bilaterally ENMT: Ears: no external ear abnormality Nose: no external nose abnormality Mouth: + dry oral mucous membranes Neck: no nuchal rigidity Respiratory: normal respiratory effort Auscultation: + diminished lung sounds Cardiovascular: Rate/Rhythm: regular rate and regular rhythm Extremities: + edema (2+ dependent) Gastrointestinal (Abdomen): Inspection/Auscultation: normal bowel sounds Percussion/Palpation: abdomen soft; abdomen nontender Musculoskeletal: Extremities: strength 5/5 throughout Skin: no rashes, warm and dry Trauma: + periorbital ecchymosis (and w/ greater extension today to R neck than yesterday) Psychiatric: A+Ox3, euthymic affect Results & Data Laboratory Results Abnormal lab results 12/13/18 12/13/18 12/13/18 Range/Units 07:47 12:00 17:05 BUN (7-18) mg/dl Creatinine (0.6-1.2) mg/dl BUN/Creatinine Ratio (10-20) Glucose (70-99) mg/dl POC Glucose 168 H 167 H 108 H (70-99) Calcium (8.5-10.1) mg/dl 12/13/18 12/14/18 Range/Units 20:19 06:45 BUN 50 H (7-18) mg/dl Creatinine 1.61 H D (0.6-1.2) mg/dl BUN/Creatinine Ratio 30.8 H (10-20) Glucose 173 H (70-99) mg/dl POC Glucose 150 H (70-99) Calcium 8.4 L (8.5-10.1) mg/dl (1) Acute renal failure (ARF) Acute renal failure type: unspecified Qualified Code(s): N17.9 - Acute kidney failure, unspecified (2) Edema Edema type: localized Qualified Code(s): R60.0 - Localized edema
[2018-12-14] MEDS: FLUTICASONE PROPIONATE NA SPR 16 GM BTL NAE SCH (08:46)
[2018-12-14] MEDS: DICLOFENAC SOD 1% GEL 100 GM TUBE EXT SCH ×4 (08:49→19:41)
[2018-12-14] MEDS: FLUTICASONE/SALMETEROL 250/50 (ADVAIR) 14 PUFF/1 INHALER INH SCH ×2 (08:52→19:41)
[2018-12-14] MEDS: IPRATROPIUM BROMIDE/ALBUTEROL respimat INH INH SCH ×4 (08:52→19:41)
[2018-12-14] MEDS: DOXYCYCLINE HYCLATE 100 MG CAP PO SCH ×2 (08:53→19:40)
[2018-12-14] MEDS: ASPIRIN 81 MG ECTAB PO SCH (08:53)
[2018-12-14] MEDS: GEMFIBROZIL 600 MG TAB PO SCH ×2 (08:53→19:40)
[2018-12-14] MEDS: SILVER SULFADIAZINE 1% CR 50 GM JAR TOP SCH (08:54)
[2018-12-14] MEDS: METOPROLOL TARTRATE 25 MG TAB PO SCH ×2 (08:54→19:39)
[2018-12-14] MEDS: GABAPENTIN 600 MG TAB PO SCH ×2 (08:54→19:39)
[2018-12-14] MEDS: BuPROPion SR 150 MG TABCR PO SCH ×2 (08:54→19:41)
[2018-12-14] MEDS: ALLOPURINOL 100 MG TAB PO SCH ×2 (08:54→19:38)
[2018-12-14] MEDS: DABIGATRAN ETEXILATE 75 MG CAP PO SCH ×2 (08:54→19:40)
[2018-12-14] MEDS: PANTOprazole 40 MG TAB PO SCH (08:54)
[2018-12-14] MEDS: INSULIN ASPART 100 UNITS/ML 3 ML PEN SC SCH ×3 (08:55→17:53)
[2018-12-14] MEDS: INSULIN GLARGINE SOLOSTAR 100 UNITS/ML 3 ML PEN SC SCH (08:57)
--- NOTE | 2018-12-14 12:51 | Hospitalist Progress Note ---
Date of Service December 14, 2018 Assessment & Plan (1) Syncope: This is a 63yo F with a PMH of morbid obesity, chronic atrial fibrillation on anticoagulation, DM II, HTN, HLD, diabetic neuropathy, COPD, NAVI noncompliant with CPAP, hypothyroidism and other medical problems listed below who presents after unwitnessed syncopal episode at home. -Likely post-micturition syncope, given story. Episode unwitnessed but family reports similar witnessed episodes in past -CT head without acute bleed, EKG with rate controlled A Fib, not hypoglycemic at time of event -Non-compliant with CPAP, so possibly related to CO2 retention -Ordered orthostatic vitals, 2D echo EF 60-65%, diastolic dysfunction+ -Telemetry -Fall precautions -Stable (2) CKD (chronic kidney disease) stage 3, GFR 30-59 ml/min: (3) Acute renal failure (ARF): CKD stage 3 Possible due to diuresis/hypotension Creatinine increased to 2.2, baseline 1-1.1 Creatinie dropped to 1.6 today Lasix has been on hold Nephro on board Case discusssed with nephrology recommended to continue holding lasix Check BMP weekly for about 1 months resume lasix when appropriate (4) Closed head injury: No concussion (5) Nasal bone fractures: Pain is controlled supplement, self-limiting (6) Facial contusion: CT head/face without acute intracranial abnormality. Bilateral nasal bone fractures with facial soft tissue injury as described above -No hematoma of nasal septum or fractures within the cervical spine -Apply ice, pain control -ENT follow-up upon discharge -Back on Pradaxa (7) Acute respiratory failure with hypoxia: Hypoxic at 88% upon arrival, improved to 98% on 2L NC -In setting of COPD, flu ( PCR negative) -CXR without evidence of PNA. No leukocytosis -Continue home inhalers, PRN duonebs - Had 2 step done today and does not qualify for oxygen - Has been saturated well on RA (8) Leg wound, right: Chronic wound, s/p recent surgical debridement of L great toe by [facility] -Add PO Doxy sec to renal issues -Wound care while in-patient (9) T2DM (type 2 diabetes mellitus): A1C of 7.2 in Nov 2018 -Hold home agents -Basal/bolus per protocol while inpatient. May require adjustment -BSG AC HS (10) HTN (hypertension): Controlled (11) HLD (hyperlipidemia): Continue gemfibrozil (12) Atrial fibrillation: Evidence of rate-controlled A fib on EKG -Given missed AM doses of diltiazem, Lopressor -Monitor on telemetry -Resume Pradaxa today (13) COPD (chronic obstructive pulmonary disease): Stable. Continue home inhalers, nebs PRN (14) NAVI (obstructive sleep apnea): Non-compliant with CPAP, has upcoming sleep study -CO2 retention may be contributing to syncopal events/falls (15) GERD (gastroesophageal reflux disease): Continue PPI (16) Depression: Stable. Continue Wellbutrin (17) Hypothyroid: TSH wnl. Continue levothyroxine DVT Ppx: On Pradaxa, DC when more fluid off and dry weight maximized Code status: FULL PCP: Dr Vazquez Dispo: Discharge planning ordered (family feels patient needs more help at home) Subjective Pt was seen and examined Sitting in chair with no distress Pt said that she is feeling much better today She is very anxious to be discharged today to attend a libertarian She has not had any episodes of syncope while in the hospital Denies any chest pain, palpitation, dizziness and fever Physical Exam Vital Signs (Past 24 Hours): Last Vital Signs Temp 36.4 C L 12/14/18 12:31 Pulse 63 12/14/18 12:31 Resp 18 12/14/18 12:31 BP 119/83 12/14/18 12:31 Pulse Ox 95 12/14/18 12:31 Physical Exam: General- No acute distress Head- atraumatic, bruises accross for head and facial area Eyes- PERRL, EOMI, ENT- oropharynx clear Neck- supple, no JVD Lungs- No wheezing Heart- regular rhythm; no murmur Abdomen- normal bowel sounds, soft, nontender Extremities- no calf tenderness Neuro- alert, oriented x 3; PERRL, EOMI; Skin- warm & dry (1) Nasal bone fractures Encounter type: initial encounter Fracture type: closed Qualified Code(s): S02.2XXA - Fracture of nasal bones, initial encounter for closed fracture (2) Acute renal failure (ARF) Acute renal failure type: unspecified Qualified Code(s): N17.9 - Acute kidney failure, unspecified (3) T2DM (type 2 diabetes mellitus) Diabetes mellitus complication detail: with other skin complication Diabetes mellitus complication status: with skin complications Diabetes mellitus intermodal dispatcher insulin use: with care home use Qualified Code(s): E11.628 - Type 2 diabetes mellitus with other skin complications; Z79.4 - detention (current) use of insulin (4) Atrial fibrillation Atrial fibrillation type: chronic Qualified Code(s): I48.2 - Chronic atrial fibrillation (5) Closed head injury Encounter type: initial encounter Qualified Code(s): S09.90XA - Unspecified injury of head, initial encounter (6) HLD (hyperlipidemia) Hyperlipidemia type: mixed hyperlipidemia Qualified Code(s): E78.2 - Mixed hyperlipidemia (7) Hypothyroid Hypothyroidism type: unspecified Qualified Code(s): E03.9 - Hypothyroidism, unspecified (8) Syncope Syncope type: unspecified Qualified Code(s): R55 - Syncope and collapse (9) Facial contusion Encounter type: initial encounter Qualified Code(s): S00.83XA - Contusion of other part of head, initial encounter (10) COPD (chronic obstructive pulmonary disease) COPD type: unspecified COPD Qualified Code(s): J44.9 - Chronic obstructive pulmonary disease, unspecified (11) HTN (hypertension) Hypertension type: essential hypertension Qualified Code(s): I10 - Essential (primary) hypertension
[2018-12-14] MEDS: ATORVASTATIN 40 MG TAB PO SCH (19:38)
--- NOTE | 2018-12-15 10:02 | Discharge Summary ---
Date of Service December 20, 2018 Admission HPI Per Admitting Provider This is a 63yo F with a PMH of morbid obesity, chronic atrial fibrillation on anticoagulation, DM II, HTN, HLD, diabetic neuropathy, COPD, NAVI noncompliant with CPAP, hypothyroidism and other medical problems listed below who presents after unwitnessed syncopal episode at home. Patient got up to use the restroom this morning and then remembers landing on her face on bathroom floor. Denies any lightheadedness, chest pain, palpitations or SOB proceeding syncopal event. Family states she has had a few episodes similar to this at home in the past few months. Was brought to ED for further evaluation. Denies any fever or chills but has been coughing and feeling generally weak. Has multiple grandchildren that live with her who have + Flu A. Also has history of COPD and has been using inhalers. Has felt generally weak and has had worsening bilateral lower extremity edema. Denies chest pain, palpitations, nausea, vomiting, abdominal pain or diarrhea. Was recently discharged in Oct 2018 after being treated for RLE cellulitis 2/2 sheila. Has been following with [facility] podiatry and underwent surgical debridement of left first toe ulcer 2 weeks ago. Recently completed course of Keflex and is now on Bactrim. Discharge Data Consultations 12/09/18 11:54 ED Decision to Admit Stat 12/09/18 13:48 Consult Case Management - Discharge Planning Routine 12/11/18 11:02 Consult Nephrology Routine 12/11/18 11:09 Consult Case Management - Discharge Planning Routine
--- NOTE | 2018-12-18 08:56 | Discharge Summary ---
Date of Service December 14, 2018 Admission HPI Per Admitting Provider This is a 63yo F with a PMH of morbid obesity, chronic atrial fibrillation on anticoagulation, DM II, HTN, HLD, diabetic neuropathy, COPD, NAVI noncompliant with CPAP, hypothyroidism and other medical problems listed below who presents after unwitnessed syncopal episode at home. Patient got up to use the restroom this morning and then remembers landing on her face on bathroom floor. Denies any lightheadedness, chest pain, palpitations or SOB proceeding syncopal event. Family states she has had a few episodes similar to this at home in the past few months. Was brought to ED for further evaluation. Denies any fever or chills but has been coughing and feeling generally weak. Has multiple grandchildren that live with her who have + Flu A. Also has history of COPD and has been using inhalers. Has felt generally weak and has had worsening bilateral lower extremity edema. Denies chest pain, palpitations, nausea, vomiting, abdominal pain or diarrhea. Was recently discharged in Oct 2018 after being treated for RLE cellulitis 2/2 sheila. Has been following with [facility] podiatry and underwent surgical debridement of left first toe ulcer 2 weeks ago. Recently completed course of Keflex and is now on Bactrim. Admission Exam Per Admitting Provider General Appearance: WD/WN, morbidly obese, facial bruising, saturating 98% on 2L NC Head: normocephalic, atraumatic Eyes: normal inspection, PERRL, EOMI ENT: hearing grossly normal, facial swelling, nasal bones TTP with ice pack, pharynx normal (moist mucous membranes) Neck: supple, no JVD, no adenopathy Respiratory/Chest: lungs clear to auscultation. No wheezes, rales or rhonci. No respiratory distress or accessory muscle use Cardiovascular: irregular rate & rhythm, no murmur, normal peripheral pulses, 3+ BLE pitting edema Abdomen/GI: Large pannus, normal bowel sounds, soft, non-tender to palpation Extremities/Musculoskelatal: normal inspection, no calf tenderness, normal capillary refill, no pedal edema Neurologic/Psych: alert, normal mood/affect, oriented x 3 Skin: normal color, warm/dry. L great toe with dressing in place Principal Diagnosis Syncope Acute renal failure Acute respiratory failure with hypoxia Discharge Exam General- No acute distress Head- atraumatic, bruises accross for head and facial area Eyes- PERRL, EOMI, ENT- oropharynx clear Neck- supple, no JVD Lungs- No wheezing Heart- regular rhythm; no murmur Abdomen- normal bowel sounds, soft, nontender Extremities- no calf tenderness Neuro- alert, oriented x 3; PERRL, EOMI; Skin- warm & dry Discharge Data Allergies Allergy/AdvReac Type Severity Reaction Status Date / Time GIN Inhibitors Allergy Unknown UNK Verified 12/09/18 11:09 cat dander Allergy Unknown UNK Verified 12/09/18 11:09 codeine Allergy Unknown "CODEINE Verified 12/11/18 11:18 DERIVITIVES" house dust Allergy Unknown Unknown Verified 12/11/18 11:18 hydrocodone Allergy Unknown unknown Unverified 12/09/18 11:09 meperidine Allergy Unknown _ Verified 12/09/18 11:09 morphine Allergy Unknown "MORPHINE Verified 12/09/18 11:09 DERIVATIVES", MORPHINE IS OK pioglitazone Allergy Unknown UNK Verified 12/09/18 11:09 nickel AdvReac Rash Verified 12/09/18 11:09 Cockroach Allergy Unknown UNK Uncoded 12/09/18 11:09 Unclassified Drugs Allergy Unknown "ALLERGIC Uncoded 09/28/18 16:24 TO TREES" Consultations 12/09/18 11:54 ED Decision to Admit Stat 12/09/18 13:48 Consult Case Management - Discharge Planning Routine 12/11/18 11:02 Consult Nephrology Routine 12/11/18 11:09 Consult Case Management - Discharge Planning Routine Ordered Studies 12/09/18 09:53 CT cervical spine wo con Stat CT facial bones wo con Stat CT head/brain wo con Stat HEAD CT NONCONTRAST CT DOSE: HISTORY: fall TECHNIQUE: Multiaxial CT images of the head were performed without the use of intravenous contrast. Automated exposure control was utilized for this study. A dose lowering technique was utilized adhering to the principles of ALARA. Comparison: Head CT 07/16/2013. Findings: Hemorrhage within the paranasal sinuses with mildly displaced nasal bone fractures. The mastoid air cells are clear. The calvarium and skull base are intact. The ventricles and sulci are within normal limits. There is no mass, hematoma, midline shift, or acute infarct. Impression: No acute intracranial abnormality. Nasal bone fractures with hemorrhage in the paranasal sinuses. Electronically signed by: Bhupinder Alanis M.D. 12/09/2018 10:50 AM Dictated: 12/09/18 1047 Transcribed: 12/09/[address] DOSE: 1662.60 mGy.cm HISTORY: fall TECHNIQUE: Multiaxial CT images of the maxillofacial region were performed and reformatted in the coronal plane without the use of contrast. A dose lowering technique was utilized adhering to the principles of ALARA. COMPARISON: None. FINDINGS: Nasal and right periorbital soft tissue swelling. Small subcutaneous right infraorbital hematoma. There is hemorrhage within the nasal cavities, maxillary sinuses, and sphenoid sinuses. The globes and retrobulbar fat are intact. Bilateral nasal bone fractures with mild left displacement. The fracture extends into the nasal process of the right maxilla. The orbital floors and lamina papyracea are intact. Motion artifact involving the posterior wall the left maxillary sinus. The zygomatic arches, skull base, mandible, and pterygoid plates are intact. IMPRESSION: Bilateral nasal bone fractures with facial soft tissue injury as described above. Electronically signed by: Bhupinder Alanis M.D. 12/09/2018 10:54 AM Dictated: 12/09/18 1050 Transcribed: 12/09/18 1050 XR chest 1V portable HISTORY: weakness COMPARISON: Chest 09/28/2018. FINDINGS: The heart remains mildly enlarged. No pneumothorax. No pleural effusions. Slight prominence of interstitial markings persists. This may be chronic. No new focal lung consolidations. No evidence for pulmonary edema. IMPRESSION: No significant change compared to the prior study. No acute process. Stable mild cardiomegaly. Electronically signed by: Bhupinder Alanis M.D. 12/09/2018 10:25 AM Dictated: 12/09/18 1024 Transcribed: 12/09/[address] DOSE: HISTORY: Neck pain. fall TECHNIQUE: Multiaxial CT images of the cervical spine were performed and reformatted in the sagittal and coronal plane without the use of contrast. A dose lowering technique was utilized adhering to the principles of ALARA. COMPARISON: None. FINDINGS: No fractures. No subluxation. Prevertebral soft tissues and the C1-C2 interval are intact but demonstrates mild erosive change. This is likely chronic. No pneumothorax. Mild to moderate degenerative disc disease within the upper thoracic spine. IMPRESSION: No fractures within the cervical spine. Electronically signed by: Bhupinder Alanis M.D. 12/09/2018 10:59 AM Dictated: 12/09/18 1055 Transcribed: 12/09/18 1055 Hospital Course (1) Syncope: This is a 63yo F with a PMH of morbid obesity, chronic atrial fibrillation on anticoagulation, DM II, HTN, HLD, diabetic neuropathy, COPD, NAVI noncompliant with CPAP, hypothyroidism and other medical problems listed below who presents after unwitnessed syncopal episode at home. -Likely post-micturition syncope, given story. Episode unwitnessed but family reports similar witnessed episodes in past -CT head without acute bleed, EKG with rate controlled A Fib, not hypoglycemic at time of event -Non-compliant with CPAP, so possibly related to CO2 retention -Ordered orthostatic vitals, 2D echo EF 60-65%, diastolic dysfunction+ -Telemetry -Fall precautions -Stable (2) CKD (chronic kidney disease) stage 3, GFR 30-59 ml/min: LISA Creatinine 2.2 today Will hold Lasix Monitor BMP Nephro on board (3) Acute renal failure (ARF): CKD stage 3 Possible due to diuresis/hypotension Creatinine increased to 2.2, baseline 1-1.1 Creatinie dropped to 1.6 today Lasix has been on hold Nephro on board Case discusssed with nephrology recommended to continue holding lasix Check BMP weekly for about 1 months resume lasix when appropriate (4) Closed head injury: No concussion (5) Nasal bone fractures: Pain is controlled supplement, self-limiting (6) Facial contusion: CT head/face without acute intracranial abnormality. Bilateral nasal bone fractures with facial soft tissue injury as described above -No hematoma of nasal septum or fractures within the cervical spine -Apply ice, pain control -ENT follow-up upon discharge -Back on Pradaxa (7) Acute respiratory failure with hypoxia: Hypoxic at 88% upon arrival, improved to 98% on 2L NC -In setting of COPD, flu ( PCR negative) -CXR without evidence of PNA. No leukocytosis -Continue home inhalers, PRN duonebs - Had 2 step done today and does not qualify for oxygen - Has been saturated well on RA (8) Leg wound, right: Chronic wound, s/p recent surgical debridement of L great toe by [facility] -Add PO Doxy sec to renal issues -Wound care while in-patient (9) T2DM (type 2 diabetes mellitus): A1C of 7.2 in Nov 2018 -Hold home agents -Basal/bolus per protocol while inpatient. May require adjustment -BSG AC HS (10) HTN (hypertension): Controlled (11) HLD (hyperlipidemia): Continue gemfibrozil (12) Atrial fibrillation: Evidence of rate-controlled A fib on EKG -Given missed AM doses of diltiazem, Lopressor -Monitor on telemetry -Resume Pradaxa today (13) COPD (chronic obstructive pulmonary disease): Stable. Continue home inhalers, nebs PRN (14) NAVI (obstructive sleep apnea): Non-compliant with CPAP, has upcoming sleep study -CO2 retention may be contributing to syncopal events/falls (15) GERD (gastroesophageal reflux disease): Continue PPI (16) Depression: Stable. Continue Wellbutrin (17) Hypothyroid: TSH wnl. Continue levothyroxine DVT Ppx: On Pradaxa, DC when more fluid off and dry weight maximized Code status: FULL PCP: Dr Vazquez Dispo: Discharge planning ordered (family feels patient needs more help at home) Total Time Total Time Spent Total Time Spent (In Minutes): 35 minutes Total Time Includes: Examination of the Patient, Discharge Planning, Medication Reconciliation, Communication With Other Providers and Other Discharge Plan Discharge Items Patient Disposition: Home - Self-Care Reason For Visit: ACUTE HYPOXIA,SYNCOPAL EVENT WITH NASAL FRACTURE Discharge Diagnosis: Syncope Acute renal failure Acute respiratory failure with hypoxia Discharge Goals: Decrease discomfort, Improve disease control, Improve function and Increase independence Activity: Resume your previous activity Activity Comment: As tolerated Non-emergency contact: Primary Care Provider Call non-emergency contact if: you have any medication questions Follow-up/Referrals: Mohsen Vazquez M.D. [Primary Care Provider] - Diet: Carb Consistent or DM2 Addtl Provider Instructions: Follow up with your primary care provider Dr. Vazquez on 12/20 @ 1:00 PM Fall precaution Check BMP in weekly for 4 to 6 weeks Avoid medications that can damage your kidney such as (Motrin, aleve, Naproxen, Ibuprofen, Advil,..) Hold lasix for now, your physician will resume it when appropriate Complete the course of the antibiotic Prescriptions: Continued atorvastatin 40 mg Tablet 40 mg PO HS RF: 0 silver sulfadiazine 1 % Cream 1 applic TOPICAL QAM RF: 0 fluticasone propion-salmeterol [Advair Diskus] 250-50 mcg/dose Blister With Device 1 inh INHALATION Q12H RF: 0 gabapentin 600 mg Tablet 600 mg PO BID RF: 0 diltiazem HCl 360 mg capsule,extended release 24 hr 360 mg PO QAM RF: 0 allopurinol 100 mg Tablet 100 mg PO BID RF: 0 aspirin [Aspirin Low Dose] 81 mg Tablet,Delayed Release (Dr/Ec) 81 mg PO QAM RF: 0 benzonatate 100 mg Capsule 100 mg PO TID PRN (Reason: Cough) RF: 0 gemfibrozil 600 mg Tablet 600 mg PO BID RF: 0 mometasone 50 mcg/actuation [place],Non-Aerosol 2 spray INTRANASAL QAM RF: 0 levothyroxine 112 mcg Tablet 112 mcg PO QAM RF: 0 Humalog KwikPen Insulin 100 unit/mL Insulin Pen 35 unit SUBCUT QAM RF: 0 Humalog KwikPen Insulin 100 unit/mL Insulin Pen 30 unit SUBCUT 1400 RF: 0 Humalog KwikPen Insulin 100 unit/mL Insulin Pen 30 unit SUBCUT HS RF: 0 metoprolol tartrate 25 mg Tablet 25 mg PO BID RF: 0 Lantus Solostar U-100 Insulin 100 unit/mL (3 mL) Insulin Pen 50 unit SUBCUT BID RF: 0 Pradaxa 150 mg Capsule 150 mg PO BID RF: 0 empagliflozin 25 mg Tablet 25 mg PO QAM RF: 0 ipratropium-albuterol 20-100 mcg/actuation mist 1 puff Inhalation QID RF: 0 bupropion HCl 150 mg tablet sustained-release 12 hr 150 mg PO BID RF: 0 omeprazole 40 mg Capsule,Delayed Release(Dr/Ec) 40 mg PO QAM RF: 0 diclofenac sodium 1 % gel 2 g topical QID RF: 0 Discontinued furosemide 40 mg Tablet 40 mg PO QAM RF: 0 sulfamethoxazole-trimethoprim [Bactrim DS] 800-160 mg Tablet 1 tab PO BID RF: 0 Stand-Alone Forms: On License Of [facility] Discharge Orders: Discharge Order (Routine); Ordered 12/14/18 Ordered By: Ashly Sagastume Admission Data Admit Date/Time: 12/09/18 12:47 Attending Provider: Ashly Sagastume Admit Provider: Nicolas Manzano Primary Care Provider: Mohsen Vazquez Other Providers: Nicolas Manzano ; Luann Drummond Service: Telemetry Other Interventions: Discharge Summary Assessment (RN) Last Done: 12/14/18 19:18 DC Date/Time DO NOT enter until pt leaves facility: 12/14/18 20:10
== END 2018-12-14 20:10 | disposition home or self-care (01) | DRG 154 ==
LOC: ED 09:28 → SUATTDRO 12:47 → 2N 12:47

== ENCOUNTER 2019-02-19 20:15 | Inpatient (IN) ==
[2019-02-19] MEDS ORDERED: SODIUM CHLORIDE 0.9% 500 ML IV SCH (20:45)
[2019-02-19] MEDS ORDERED: PIPERACILL/TAZOBAC CONSULT ACTIVE PRN (20:46)
[2019-02-19] MEDS ORDERED: VANCOMYCIN HCL 2,750 MG in SODIUM CHLORIDE 0.9% 500 ML IV STA (20:56)
--- NOTE | 2019-02-19 21:20 | XRay Report ---
XR chest 1V portable HISTORY: 63 years-old Female fever acute fever COMPARISON: Chest radiograph 12/09/2018 TECHNIQUE: Portable AP view of the chest FINDINGS: The exam is limited secondary to patient positioning. Cardiac silhouette is enlarged, unchanged. Bila teral interstitial coarsening appears unchanged. No pneumothorax, pleural effusion, focal airspace co nsolidation or overt pulmonary edema. Mild right hemidiaphragmatic elevation. Degenerative changes of the shoulders and spine. IMPRESSION: 1. Limited exam secondary to positioning. 2. No acute process identified. The above report was generated using voice recognition software. It may contain grammatical, syntax o r spelling errors. Electronically signed by: Adams Alex M.D. 02/19/2019 9:19 PM
[2019-02-19 21:34] LABS: Basophils # (auto) 0.03 K/uL (0-0.2); Basophils % (auto) 0.2 %; Eosinophils # (auto) 0.01 K/uL (0-0.5); Eosinophils % (auto) 0.1 %; Hematocrit (blood only) 44.9 % (37-47); Hemoglobin 15.1 g/dL (12.0-16.0); Immature Granulocytes # (auto) 0.13 K/uL (0.00-0.02); Immature Granulocytes % (auto) 0.7 %; Lymphocytes # (auto) 0.63 K/uL (1.2-3.4); Lymphocytes % (auto) 3.4 %; Mean Corpuscular Hgb Conc 33.6 g/dL (32-36); Mean Corpuscular Volume 89.4 fL (80-100); Mean Platelet Volume 10.3 fL (7.4-10.4); Monocytes # (auto) 0.64 K/uL (0.11-0.59); Monocytes % (auto) 3.4 %; Neutrophils # (auto) 17.19 K/uL (1.4-6.5); Neutrophils % (auto) 92.2 %; Platelet Count 269 K/uL (130-400); RDW Coefficient of Variation 16.5 % (11.5-14.5); RDW Standard Deviation 54.1 fL (36.4-46.3); Red Blood Count 5.02 M/uL (4.2-5.4); White Blood Count 18.63 K/uL (4.8-10.8)
[2019-02-19] MEDS: PIPERACILLIN/TAZOBACTAM 4.5 GM/120 ML BAG IV ONE ×2 (21:44→22:15)
--- NOTE | 2019-02-19 21:49 | CT Scan Report ---
CT head/brain wo con CLINICAL HISTORY: 63 years-old Female with fever, AMS. Acutely altered mental status with fever TECHNIQUE: Multiple axial CT images of the head were obtained without contrast. A dose lowering tech nique was utilized adhering to the principles of ALARA. CT DOSE: 1768.17 mGy.cm COMPARISON: Head CT 12/09/2018 FINDINGS: Markedly motion degraded exam. No acute intracranial hemorrhage, midline shift, intracranial mass, hy drocephalus, territorial ischemia or abnormal extra-axial collection. The calvarium is intact. The paranasal sinuses, mastoid air cells, and middle ear cavities are clear . IMPRESSION: Motion degraded exam without acute intracranial abnormality identified. The above report was generated using voice recognition software. It may contain grammatical, syntax o r spelling errors. Electronically signed by: Adams Alex M.D. 02/19/2019 9:47 PM
[2019-02-19 21:51] LABS: Alanine Aminotransferase 20 U/L (12-78); Albumin Level 3.2 gm/dl (3.4-5.0); Aspartate Aminotransferase 22 U/L (15-37); BUN Creatinine Ratio 21.4 (10-20); Blood Urea Nitrogen 24 mg/dl (7-18); Calcium 9.4 mg/dl (8.5-10.1); Carbon Dioxide 27 mmol/L (21-32); Chloride 104 mmol/L (98-107); Creatinine Clr Calc Pharmacy 74.1 ml/min; Est GFR (African American) 60.5; Est GFR (Non-African American) 52.2; Glucose 110 mg/dl (70-99); Potassium 4.2 mmol/L (3.5-5.1); Sodium 138 mmol/L (136-145)
[2019-02-19 21:56] LABS: Albumin Globulin Ratio 0.8 (0.9-2); Alkaline Phosphatase 102 U/L (45-117); Bilirubin,Total 0.4 mg/dl (0.2-1); Globulin 4.2 gm/dl (2.5-4.0); Total Protein 7.4 gm/dl (6.4-8.2); Troponin I < 0.015 ng/ml (0-0.045)
--- NOTE | 2019-02-20 00:33 | Emergency Department Note ---
Entered by Aline Vargas acting as a scribe for History of Present Illness General Chief complaint: Swelling/Edema to Extremity Stated complaint: legs/edema, cellulitis Source: patient Mode of arrival: ambulatory Limitations: no limitations History of Present Illness Onset (ago): day(s) 1 Radiation: non-radiation Pain Consistency: + constant Relieved By: + none Exacerbated By: + movement Associated symptoms: + other (+abdominal pain, +left great toe pain) Treatments prior to arrival: none The patient is a 63 year old female who presents to the ED with complaints of a fever. Her temperature is 38.8 here in the ED. She also complains of generalized pain in her abdomen and left leg, from cellulitis and a wound on her left great toe. Movement worsens her pain. She reports she has fallen repeatedly today, stating "I keep falling down". 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 She also complains of abdominal pain from her recent fall. Her BSG was 160 when checked at home recently. Her PCP is with [facility], but she is unable to recall the name. Home Medications Home Medications Medication Instructions Recorded Confirmed Type Lantus Solostar U-100 Insulin 50 unit SUBCUT BID 09/28/18 02/19/19 History Pradaxa 150 mg PO BID 09/28/18 02/19/19 History allopurinol 100 mg PO BID 09/28/18 02/19/19 History aspirin [Aspirin Low Dose] 81 mg PO QAM 09/28/18 02/19/19 History atorvastatin 40 mg PO HS 09/28/18 02/19/19 History benzonatate 100 mg PO TID PRN 09/28/18 02/19/19 History diltiazem HCl 360 mg PO QAM 09/28/18 02/19/19 History empagliflozin 25 mg PO QAM 09/28/18 02/19/19 History gabapentin 600 mg PO BID 09/28/18 02/19/19 History gemfibrozil 600 mg PO BID 09/28/18 02/19/19 History insulin lispro [Humalog KwikPen 15 unit SUBCUT 1400 PRN 09/28/18 02/19/19 History Insulin] insulin lispro [Humalog KwikPen 30 unit SUBCUT .EVENING MEAL PRN 09/28/18 02/19/19 History Insulin] insulin lispro [Humalog KwikPen 35 unit SUBCUT QAM PRN 09/28/18 02/19/19 History Insulin] ipratropium-albuterol 1 puff INHALATION QID 09/28/18 02/19/19 History levothyroxine 112 mcg PO QAM 09/28/18 02/19/19 History metoprolol tartrate 25 mg PO BID 09/28/18 02/19/19 History mometasone 2 spray INTRANASAL QAM 09/28/18 02/19/19 History bupropion HCl 150 mg PO BID 12/09/18 02/19/19 History diclofenac sodium 2 g TOPICAL QID 12/09/18 02/19/19 History albuterol sulfate 2.5 mg INHALATION Q4H PRN 02/19/19 02/19/19 History valsartan-hydrochlorothiazide 1 tab PO DAILY 02/19/19 02/19/19 History Allergies Allergy/AdvReac Type Severity Reaction Status Date / Time GIN Inhibitors Allergy Unknown UNK Verified 02/19/19 23:56 cat dander Allergy Unknown UNK Verified 02/19/19 23:56 codeine Allergy Unknown "CODEINE Verified 02/19/19 23:56 DERIVITIVES" house dust Allergy Unknown Unknown Verified 02/19/19 23:57 hydrocodone Allergy Unknown unknown Unverified 02/19/19 23:57 meperidine Allergy Unknown _ Verified 02/19/19 23:57 morphine Allergy Unknown "MORPHINE Verified 02/19/19 23:57 DERIVATIVES", MORPHINE IS OK pioglitazone Allergy Unknown UNK Verified 02/19/19 23:57 nickel AdvReac Rash Verified 02/19/19 23:58 Cockroach Allergy Unknown UNK Uncoded 02/19/19 23:58 Unclassified Drugs Allergy Unknown "ALLERGIC Uncoded 09/28/18 16:24 TO TREES" Past Med/Surg History Medical History T2DM (type 2 diabetes mellitus) (Chronic) HTN (hypertension) (Chronic) HLD (hyperlipidemia) (Chronic) COPD (chronic obstructive pulmonary disease) (Chronic) NAVI (obstructive sleep apnea) (Chronic) Diabetic neuropathy (Chronic) CKD (chronic kidney disease) stage 3, GFR 30-59 ml/min (Chronic) GERD (gastroesophageal reflux disease) (Chronic) Depression (Chronic) Hypothyroid (Chronic) Gout (Chronic) Morbid obesity (Chronic) Atrial fibrillation (Chronic) Atrial fibrillation with rapid ventricular response (Resolved 07/14/14) Cellulitis (Resolved) Surgical History History of cholecystectomy (Resolved) History of hernia repair (Resolved) Family History Father Myocardial infarction Coronary heart disease Mother Complication of surgery Other No significant family history T2DM (type 2 diabetes mellitus) Social History Preferred Language: Uzbek Communication Ability: Effective Veterinarian Poultry Required: No Beliefs That Will Affect Care: None marital status: Current Living Situation: Family Current Living Situation Comment: Lives at home with daugther, son in law and grandchildren Feels Safe at Home: Yes Safety Concerns: Feels Safe At This Time Smoking Status: Former smoker Second Hand Exposure: Yes Hx Alcohol Use: No Hx Substance Use: No Review of Systems See HPI for pertinent positives & negatives. and A total of 10 systems reviewed and were otherwise negative Physical Exam Vital Signs Vital Signs - 24 hr 02/19/19 20:30 02/19/19 20:53 02/19/19 21:43 Temperature 38.3 C H Temperature Source Oral Sepsis Recent Fever Within 48 Hours Yes Sepsis New/Unexplained Change in Mental Status No Sepsis Action Taken by Nursing Physician Notified Pulse Rate 104 H Pulse Rate [Finger] 96 H Pulse Rhythm Regular Pulse Rhythm [Finger] Pulse Strength Normal Pulse Strength [Finger] Respiratory Rate 22 19 20 Respiratory Effort / Characteristics Non-Labored Spontaneous Respiratory Depth Normal Respiratory Pattern Regular Blood Pressure 115/79 Blood Pressure [Left Arm] 103/62 105/65 Blood Pressure Mean 91 Blood Pressure Mean [Left Arm] 75 78 Blood Pressure Position Sitting Blood Pressure Position [Left Arm] Sitting Pulse Oximetry 91 94 Oxygen Delivery Method Room Air Room Air Room Air 02/19/19 22:16 02/20/19 00:00 Temperature 37.0 C Temperature Source Oral Sepsis Recent Fever Within 48 Hours Sepsis New/Unexplained Change in Mental Status Sepsis Action Taken by Nursing Pulse Rate Pulse Rate [Finger] 97 H Pulse Rhythm Pulse Rhythm [Finger] Regular Pulse Strength Pulse Strength [Finger] Normal Respiratory Rate 19 Respiratory Effort / Characteristics Non-Labored Spontaneous Respiratory Depth Normal Respiratory Pattern Blood Pressure Blood Pressure [Left Arm] 100/60 Blood Pressure Mean Blood Pressure Mean [Left Arm] 73 Blood Pressure Position Blood Pressure Position [Left Arm] Lying Pulse Oximetry 92 Oxygen Delivery Method Room Air Vital signs reviewed. General: Obese, chronically ill-appearing 63 year old female, in no acute distress HEENT: No scleral icterus, PERRLA, neck supple. Atraumatic. Dry mucous membranes. Cardiovascular: Regular rate and rhythm, no extra sounds. Pulmonary: Clear to auscultation bilaterally, normal work of breathing. Abdomen: Large pannus. Soft, mild diffuse abdominal discomfort to palpation, no rebound or guarding, nondistended, positive bowel sounds. Musculoskeletal: Atraumatic. No peripheral edema. 1 cm ulcer to plantar surface of left great toe with edema, no erythema or significant swelling to left foot, marked erythema and edema from distal lower extremity to proximal knee. Neurologic: Patient awake alert and somewhat confused. Redirectable and able to follow commands. Skin: Warm, dry, no rash Course 2021: The patient was evaluated in room B6 and a complete history and physical were performed. 2225: I [facility] the [facility] The patient will be further evaluated. 2235: I reevaluated the patient. She is resting comfortably. I discussed my recommendation she remain in the hospital for further evaluation and management and she verbalized complete understanding and agreement. Consultations Consultation #1: I [facility] the [facility] The patient will be further evaluated. Time: 22:25 Administered Medications Acetaminophen (Tylenol) 650 mg PO Q4H PRN PRN Reason: pain/fever Stop: 03/22/19 02:55 Last Admin: 02/22/19 03:55 Dose: 650 mg Documented by: [id number] Admin: 02/21/19 23:29 Dose: 650 mg Documented by: [id number] Admin: 02/21/19 16:25 Dose: 650 mg Documented by: [id number] Admin: 02/20/19 04:55 Dose: 650 mg Documented by: [id number] Albuterol (Duoneb) 3 ml NEB QIDR [facility] Stop: 03/22/19 15:59 Last Admin: 02/22/19 15:09 Dose: 3 ml Documented by: [id number] Admin: 02/22/19 10:36 Dose: 3 ml Documented by: [id number] Admin: 02/22/19 07:23 Dose: Not Given Documented by: [id number] Admin: 02/21/19 19:37 Dose: 3 ml Documented by: [id number] Admin: 02/21/19 15:06 Dose: 3 ml Documented by: [id number] Admin: 02/21/19 11:03 Dose: 3 ml Documented by: [id number] Admin: 02/21/19 06:56 Dose: 3 ml Documented by: [id number] Admin: 02/20/19 18:49 Dose: 3 ml Documented by: [id number] Admin: 02/20/19 16:00 Dose: 3 ml Documented by: [id number] Allopurinol (Zyloprim) 100 mg PO BID [facility] Stop: 03/22/19 08:59 Last Admin: 02/22/19 08:51 Dose: 100 mg Documented by: [id number] Admin: 02/21/19 20:35 Dose: 100 mg Documented by: [id number] Admin: 02/21/19 08:07 Dose: 100 mg Documented by: [id number] Admin: 02/20/19 20:31 Dose: 100 mg Documented by: [id number] Admin: 02/20/19 08:27 Dose: 100 mg Documented by: [id number] Aspirin (Ecotrin Ectab) 81 mg PO QAM [facility] Stop: 03/22/19 08:59 Last Admin: 02/22/19 08:51 Dose: 81 mg Documented by: [id number] Admin: 02/21/19 08:04 Dose: 81 mg Documented by: [id number] Admin: 02/20/19 08:25 Dose: 81 mg Documented by: [id number] Bupropion HCl (Wellbutrin-Sr) 150 mg PO BID [facility] Stop: 03/22/19 08:59 Last Admin: 02/22/19 08:51 Dose: 150 mg Documented by: [id number] Admin: 02/21/19 20:35 Dose: 150 mg Documented by: [id number] Admin: 02/21/19 08:07 Dose: 150 mg Documented by: [id number] Admin: 02/20/19 20:31 Dose: 150 mg Documented by: [id number] Admin: 02/20/19 08:27 Dose: 150 mg Documented by: [id number] Dabigatran (Pradaxa) 150 mg PO BID [facility] Stop: 03/22/19 08:59 Last Admin: 02/22/19 08:51 Dose: 150 mg Documented by: [id number] Admin: 02/21/19 20:35 Dose: 150 mg Documented by: [id number] Admin: 02/21/19 08:06 Dose: 150 mg Documented by: [id number] Admin: 02/20/19 20:29 Dose: 150 mg Documented by: [id number] Admin: 02/20/19 08:26 Dose: 150 mg Documented by: [id number] Diclofenac Sodium (Voltaren 1% Top) 2 appln EXT QID [facility] Stop: 03/22/19 08:59 Last Admin: 02/22/19 12:53 Dose: Not Given Documented by: [id number] Admin: 02/22/19 08:55 Dose: 2 appln Documented by: [id number] Admin: 02/21/19 23:29 Dose: 2 appln Documented by: [id number] Admin: 02/21/19 18:31 Dose: 2 appln Documented by: [id number] Admin: 02/21/19 12:25 Dose: 2 appln Documented by: [id number] Admin: 02/21/19 08:06 Dose: 2 appln Documented by: [id number] Admin: 02/20/19 20:29 Dose: 2 appln Documented by: [id number] Admin: 02/20/19 17:32 Dose: 2 appln Documented by: [id number] Admin: 02/20/19 12:31 Dose: 2 appln Documented by: [id number] Admin: 02/20/19 08:27 Dose: 2 appln Documented by: [id number] Diltiazem HCl (Tiazac) 360 mg PO [facility] Stop: 03/22/19 08:59 Last Admin: 02/22/19 08:50 Dose: 360 mg Documented by: [id number] Admin: 02/21/19 08:06 Dose: 360 mg Documented by: [id number] Admin: 02/20/19 12:30 Dose: 360 mg Documented by: [id number] Fluticasone [facility]) [facility] Stop: 03/22/19 08:59 Last Admin: 02/22/19 08:52 Dose: 2 sprays Documented by: [id number] Admin: 02/21/19 08:04 Dose: 2 sprays Documented by: [id number] Admin: 02/20/19 08:25 Dose: 2 sprays Documented by: [id number] Gabapentin (Neurontin) 600 mg PO BID [facility] Stop: 03/22/19 08:59 Last Admin: 02/22/19 08:51 Dose: 600 mg Documented by: [id number] Admin: 02/21/19 20:35 Dose: 600 mg Documented by: [id number] Admin: 02/21/19 08:05 Dose: 600 mg Documented by: [id number] Admin: 02/20/19 20:30 Dose: 600 mg Documented by: [id number] Admin: 02/20/19 08:26 Dose: 600 mg Documented by: [id number] Gemfibrozil (Lopid) 600 mg PO BID [facility] Stop: 03/22/19 08:59 Last Admin: 02/22/19 08:50 Dose: 600 mg Documented by: [id number] Admin: 02/21/19 20:35 Dose: 600 mg Documented by: [id number] Admin: 02/21/19 08:05 Dose: 600 mg Documented by: [id number] Admin: 02/20/19 20:30 Dose: 600 mg Documented by: [id number] Admin: 02/20/19 08:26 Dose: 600 mg Documented by: [id number] Hydrochlorothiazide (Hctz) 25 mg PO QAM [facility] Stop: 03/22/19 08:59 Last Admin: 02/20/19 12:31 Dose: Not Given Documented by: [id number] Ceftriaxone Sodium 2,000 mg/ (Dextrose) 70 mls @ 140 mls/hr IV Q24H [facility]; Protocol Stop: 03/01/19 23:59 Last Infusion: 02/22/19 13:47 Dose: 0 mls/hr Documented by: [id number] Admin: 02/22/19 12:50 Dose: 140 mls/hr Documented by: [id number] Insulin Aspart (Novolog Flexpen) 0 units SC ACHS [facility] Stop: 03/22/19 07:29 Last Admin: 02/22/19 12:55 Dose: 2 units Documented by: [id number] Cosigned by: [id number] Admin: 02/22/19 08:53 Dose: 8 units Documented by: [id number] Cosigned by: [id number] Admin: 02/21/19 20:41 Dose: 3 units Documented by: [id number] Cosigned by: [id number] Admin: 02/21/19 18:19 Dose: 10 units Documented by: [id number] Cosigned by: [id number] Admin: 02/21/19 12:35 Dose: 9 units Documented by: [id number] Cosigned by: [id number] Admin: 02/21/19 08:13 Dose: 8 units Documented by: [id number] Cosigned by: [id number] Admin: 02/20/19 20:31 Dose: 3 units Documented by: [id number] Cosigned by: [id number] Admin: 02/20/19 17:33 Dose: 11 units Documented by: [id number] Cosigned by: [id number] Admin: 02/20/19 12:19 Dose: 7 units Documented by: [id number] Cosigned by: [id number] Admin: 02/20/19 08:32 Dose: 4 units Documented by: [id number] Cosigned by: [id number] Admin: 02/20/19 06:34 Dose: 8 units Documented by: [id number] Cosigned by: [id number] Insulin Glargine (Lantus Solostar Pen) 50 units SQ BID [facility] Stop: 03/22/19 08:59 Last Admin: 02/22/19 08:54 Dose: 50 units Documented by: [id number] Cosigned by: [id number] Admin: 02/21/19 20:39 Dose: 50 units Documented by: [id number] Cosigned by: [id number] Admin: 02/21/19 08:13 Dose: 50 units Documented by: [id number] Cosigned by: [id number] Admin: 02/20/19 20:28 Dose: 50 units Documented by: [id number] Cosigned by: [id number] Admin: 02/20/19 08:33 Dose: 50 units Documented by: [id number] Cosigned by: [id number] Levothyroxine Sodium (Synthroid) 112 mcg PO DAILYBB [facility] Stop: 03/22/19 06:29 Last Admin: 02/22/19 05:59 Dose: 112 mcg Documented by: [id number] Admin: 02/21/19 04:27 Dose: 112 mcg Documented by: [id number] Admin: 02/20/19 05:51 Dose: 112 mcg Documented by: [id number] Metoprolol Tartrate (Lopressor) 25 mg PO BID [facility] Stop: 03/22/19 08:59 Last Admin: 02/22/19 08:50 Dose: 25 mg Documented by: [id number] Admin: 02/21/19 20:35 Dose: 25 mg Documented by: [id number] Admin: 02/21/19 08:05 Dose: 25 mg Documented by: [id number] Admin: 02/20/19 20:30 Dose: 25 mg Documented by: [id number] Admin: 02/20/19 08:28 Dose: Not Given Documented by: [id number] Valsartan (Diovan) 320 mg PO DAILY [facility] Stop: 03/22/19 08:59 Last Admin: 02/22/19 08:51 Dose: 320 mg Documented by: [id number] Admin: 02/21/19 08:04 Dose: 320 mg Documented by: [id number] Admin: 02/20/19 12:29 Dose: 320 mg Documented by: [id number] Discontinued Medications Albuterol (Combivent Respimat) 1 puffs INH QID [facility] Stop: 03/22/19 08:59 Last Admin: 02/20/19 12:30 Dose: 1 puffs Documented by: [id number] Admin: 02/20/19 08:25 Dose: 1 puffs Documented by: [id number] Sodium Chloride (Nss) 500 mls @ 999 mls/hr IV .Q31M [facility] Stop: 02/19/19 21:15 Last Infusion: 02/19/19 22:16 Dose: 0 mls/hr Documented by: [id number] Admin: 02/19/19 21:44 Dose: 999 mls/hr Documented by: [id number] Piperacillin Sod/Tazobactam Sod (Zosyn) 4.5 gm in 120 mls @ 240 mls/hr IV NOW ONE Stop: 02/19/19 21:15 Last Infusion: 02/19/19 22:41 Dose: 0 mls/hr Documented by: [id number] Admin: 02/19/19 22:15 Dose: 240 mls/hr Documented by: [id number] Vancomycin HCl 2,750 mg/ (Sodium Chloride) 555 mls @ 200 mls/hr IV NOW STA Stop: 02/19/19 23:42 Last Infusion: 02/20/19 01:30 Dose: 0 mls/hr Documented by: [id number] Admin: 02/19/19 22:41 Dose: 200 mls/hr Documented by: [id number] Vancomycin HCl 1,750 mg/ (Sodium Chloride) 535 mls @ 200 mls/hr IV Q14H [facility] Stop: 03/02/19 09:59 Last Infusion: 02/22/19 05:58 Dose: 0 mls/hr Documented by: [id number] Admin: 02/22/19 02:59 Dose: 200 mls/hr Documented by: [id number] Infusion: 02/21/19 16:49 Dose: 0 mls/hr Documented by: [id number] Admin: 02/21/19 14:08 Dose: 200 mls/hr Documented by: [id number] Infusion: 02/21/19 02:27 Dose: 0 mls/hr Documented by: [id number] Admin: 02/20/19 23:37 Dose: 200 mls/hr Documented by: [id number] Infusion: 02/20/19 12:44 Dose: 200 mls/hr Documented by: [id number] Admin: 02/20/19 10:03 Dose: 200 mls/hr Documented by: [id number] Piperacillin Sod/Tazobactam (Sod 4.5 gm/ Dextrose) 120 mls @ 30 mls/hr IV Q8H [facility]; Protocol Stop: 03/02/19 03:59 Last Infusion: 02/22/19 10:00 Dose: 0 mls/hr Documented by: [id number] Admin: 02/22/19 05:58 Dose: 30 mls/hr Documented by: [id number] Infusion: 02/22/19 00:20 Dose: 0 mls/hr Documented by: [id number] Admin: 02/21/19 20:20 Dose: 30 mls/hr Documented by: [id number] Infusion: 02/21/19 16:25 Dose: 0 mls/hr Documented by: [id number] Admin: 02/21/19 12:25 Dose: 30 mls/hr Documented by: [id number] Infusion: 02/21/19 08:26 Dose: 30 mls/hr Documented by: [id number] Admin: 02/21/19 04:26 Dose: 30 mls/hr Documented by: [id number] Infusion: 02/21/19 01:07 Dose: 0 mls/hr Documented by: [id number] Admin: 02/20/19 20:43 Dose: 30 mls/hr Documented by: [id number] Infusion: 02/20/19 16:19 Dose: 0 mls/hr Documented by: [id number] Admin: 02/20/19 12:19 Dose: 30 mls/hr Documented by: [id number] Infusion: 02/20/19 08:03 Dose: 30 mls/hr Documented by: [id number] Admin: 02/20/19 04:03 Dose: 30 mls/hr Documented by: [id number] Medical Decision Making Differential Diagnosis Differential: Viral, Pharyngitis, Cellulitis, Pneumonia, Influenza, Meningitis, Sepsis, Bacteremia, UTI/Pyelonephritis, Endocrine, Toxicologic, amongst other pathologies joao xiao Medical Records Attestation: I reviewed the patient's medical records. Home Medications Current Medication List: was personally reviewed by me Laboratory Data Attestation: I reviewed the patient's lab results. Result diagrams: 02/22/19 05:36 02/22/19 05:36 Lab Results 02/19/19 02/19/19 02/19/19 Range/Units 21:00 21:20 21:20 WBC 18.63 H (4.8-10.8) K/uL RBC 5.02 (4.2-5.4) M/uL Hgb 15.1 (12.0-16.0) g/dL Hct 44.9 (37-47) % MCV 89.4 (80-100) fL MCH 30.1 (25-34) pg MCHC 33.6 (32-36) g/dL RDW Std Deviation 54.1 H (36.4-46.3) fL RDW Coeff of Faraz 16.5 H (11.5-14.5) % Plt Count 269 (130-400) K/uL MPV 10.3 (7.4-10.4) fL Immature Gran % (Auto) 0.7 % Neut % (Auto) 92.2 % Lymph % (Auto) 3.4 % [place] % (Auto) 3.4 % Eos % (Auto) 0.1 % Baso % (Auto) 0.2 % Immature Gran # (Auto) 0.13 H (0.00-0.02) K/uL Neut # (Auto) 17.19 H (1.4-6.5) K/uL Lymph # (Auto) 0.63 L (1.2-3.4) K/uL [place] # (Auto) 0.64 H (0.11-0.59) K/uL Eos # (Auto) 0.01 (0-0.5) K/uL Baso # (Auto) 0.03 (0-0.2) K/uL Sodium 138 (136-145) mmol/L Potassium 4.2 (3.5-5.1) mmol/L Chloride 104 (98-107) mmol/L Carbon Dioxide 27 (21-32) mmol/L Anion Gap 8.0 (3-11) BUN 24 H (7-18) mg/dl Creatinine 1.12 (0.6-1.2) mg/dl Est Cr Clr Drug Dosing 74.1 ml/min Est GFR ( Amer) 60.5 Est GFR (Non-Af Amer) 52.2 BUN/Creatinine Ratio 21.4 H (10-20) Glucose 110 H (70-99) mg/dl Lactate (0.4-2.0) mmol/L Calcium 9.4 (8.5-10.1) mg/dl Total Bilirubin 0.4 (0.2-1) mg/dl AST 22 (15-37) U/L ALT 20 (12-78) U/L Alkaline Phosphatase 102 (45-117) U/L Troponin I < 0.015 (0-0.045) ng/ml Total Protein 7.4 (6.4-8.2) gm/dl Albumin 3.2 L (3.4-5.0) gm/dl Globulin 4.2 H (2.5-4.0) gm/dl Albumin/Globulin Ratio 0.8 L (0.9-2) Procalcitonin (0-0.5) ng/ml Influenza Type A Ag Neg for Influ A (Neg) Influenza Type B Ag Neg for Influ B (Neg) 02/19/19 02/19/19 Range/Units 21:20 21:20 WBC (4.8-10.8) K/uL RBC (4.2-5.4) M/uL Hgb (12.0-16.0) g/dL Hct (37-47) % MCV (80-100) fL MCH (25-34) pg MCHC (32-36) g/dL RDW Std Deviation (36.4-46.3) fL RDW Coeff of Afraz (11.5-14.5) % Plt Count (130-400) K/uL MPV (7.4-10.4) fL Immature Gran % (Auto) % Neut % (Auto) % Lymph % (Auto) % [place] % (Auto) % Eos % (Auto) % Baso % (Auto) % Immature Gran # (Auto) (0.00-0.02) K/uL Neut # (Auto) (1.4-6.5) K/uL Lymph # (Auto) (1.2-3.4) K/uL [place] # (Auto) (0.11-0.59) K/uL Eos # (Auto) (0-0.5) K/uL Baso # (Auto) (0-0.2) K/uL Sodium (136-145) mmol/L Potassium (3.5-5.1) mmol/L Chloride (98-107) mmol/L Carbon Dioxide (21-32) mmol/L Anion Gap (3-11) BUN (7-18) mg/dl Creatinine (0.6-1.2) mg/dl Est Cr Clr Drug Dosing ml/min Est GFR ( Amer) Est GFR (Non-Af Amer) BUN/Creatinine Ratio (10-20) Glucose (70-99) mg/dl Lactate 1.8 (0.4-2.0) mmol/L Calcium (8.5-10.1) mg/dl Total Bilirubin (0.2-1) mg/dl AST (15-37) U/L ALT (12-78) U/L Alkaline Phosphatase (45-117) U/L Troponin I (0-0.045) ng/ml Total Protein (6.4-8.2) gm/dl Albumin (3.4-5.0) gm/dl Globulin (2.5-4.0) gm/dl Albumin/Globulin Ratio (0.9-2) Procalcitonin 1.03 H (0-0.5) ng/ml Influenza Type A Ag (Neg) Influenza Type B Ag (Neg) Imaging Data Radiologist's Impression: Radiology results as stated below per my review and the radiologist's interpretation: XR chest 1V portable HISTORY: 63 years-old Female fever acute fever COMPARISON: Chest radiograph 12/09/2018 TECHNIQUE: Portable AP view of the chest FINDINGS: The exam is limited secondary to patient positioning. Cardiac silhouette is enlarged, unchanged. Bilateral interstitial coarsening appears unchanged. No pneumothorax, pleural effusion, focal airspace consolidation or overt pulmonary edema. Mild right hemidiaphragmatic elevation. Degenerative changes of the shoulders and spine. IMPRESSION: 1. Limited exam secondary to positioning. 2. No acute process identified. The above report was generated using voice recognition software. It may contain grammatical, syntax or spelling errors. Electronically signed by: Adams Alex M.D. 02/19/2019 9:[address] head/brain wo con CLINICAL HISTORY: 63 years-old Female with fever, AMS. Acutely altered mental status with fever TECHNIQUE: Multiple axial CT images of the head were obtained without contrast. A dose lowering technique was utilized adhering to the principles of ALARA. CT DOSE: 1768.17 mGy.cm COMPARISON: Head CT 12/09/2018 FINDINGS: Markedly motion degraded exam. No acute intracranial hemorrhage, midline shift, intracranial mass, hydrocephalus, territorial ischemia or abnormal extra-axial collection. The calvarium is intact. The paranasal sinuses, mastoid air cells, and middle ear cavities are clear. IMPRESSION: Motion degraded exam without acute intracranial abnormality identified. The above report was generated using voice recognition software. It may contain grammatical, syntax or spelling errors. Electronically signed by: Adams Alex M.D. 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 IV access was obtained and lab work was drawn. Pt was placed on the night monitor. Pt was found to be in a rate controlled atrial fibrillation. Lab work reveals a WBC of 18.6 with lactate of 1.8. Pt is found to have a LLE cellulitis on exam. Abd is diffusely mildly uncomfortable to exam, but no specific tenderness. IV vancomycin and zosyn were ordered. CT head was performed and is negative. Case was d/w the hospitalist service for further management. Pt is aware of the plan and agrees. Impression & Plan Cellulitis of left lower extremity, Fever, Diabetic ulcer of left great toe, Altered mental status Discharge Plan Visit Data *Final* Discharge Date/Time: 02/20/19 02:31 Chief Complaint: Swelling/Edema to Extremity Stated Complaint: legs/edema, cellulitis ED Provider: Concepcion Lindsey Discharge Problem: Cellulitis of left lower extremity, Fever, Diabetic ulcer of left great toe, Altered mental status Patient Disposition: Admitted As Inpatient Discharge Instructions Interventions: ED Discharge Assessment Last Done: 02/20/19 02:31 The scribe's documentation has been prepared under my direction and personally reviewed by me in its entirety. I confirm that the note above accurately reflec ts all work, treatment, procedures, and medical decision making performed by me.
[2019-02-20] MEDS ORDERED: ONDANSETRON INJ 2 MG/ML 2 ML VIAL IV PRN (02:56)
[2019-02-20] MEDS ORDERED: PIPERACILL/TAZOBAC CONSULT ACTIVE PRN (02:56)
[2019-02-20] MEDS ORDERED: VANCOMYCIN CONSULT ACTIVE PRN (02:56)
[2019-02-20] MEDS ORDERED: ALBUTEROL 0.083% NEBU SOLN 3 ML VIAL INH PRN (02:56)
[2019-02-20] MEDS: PIPERACILLIN/TAZOBACTAM 4.5 GM in DEXTROSE 5% 100 ML IV SCH ×3 (04:03→20:43)
[2019-02-20] MEDS ORDERED: GLUCOSE 10 TABS/TUBE PO PRN (04:45)
[2019-02-20] MEDS ORDERED: GLUCAGON FOR INJ 1 MG VIAL IM PRN (04:45)
[2019-02-20] MEDS ORDERED: DEXTROSE 50% 50 ML SYRINGE IV PRN (04:45)
[2019-02-20] MEDS ORDERED: GLUCOSE 40% GEL 15 GM TUBE PO PRN (04:45)
[2019-02-20] MEDS ORDERED: CARBOHYDRATES FOR HYPOGLYCEMIA PO PRN (04:45)
[2019-02-20] MEDS: ACETAMINOPHEN 325 MG TAB PO PRN (04:55)
[2019-02-20] MEDS: LEVOTHYROXINE SODIUM 112 MCG TABLET PO SCH (05:51)
[2019-02-20] MEDS: INSULIN ASPART 100 UNITS/ML 3 ML PEN SC SCH ×5 (06:34→20:31)
--- NOTE | 2019-02-20 07:02 | Ultrasound Report ---
LEFT LOWER EXTREMITY VENOUS DOPPLER HISTORY: Left leg swelling. COMPARISON STUDY: None. FINDINGS: There is normal compressibility, flow, and augmentation within the left lower extremity kirit p venous system. IMPRESSION: No DVT within the left lower extremity. Electronically signed by: Bhupinder Alanis M.D. 02/20/2019 7:01 AM
[2019-02-20 07:11] LABS: Basophils # (auto) 0.03 K/uL (0-0.2); Basophils % (auto) 0.1 %; Eosinophils # (auto) 0.01 K/uL (0-0.5); Hematocrit (blood only) 40.4 % (37-47); Hemoglobin 12.9 g/dL (12.0-16.0); Immature Granulocytes # (auto) 0.08 K/uL (0.00-0.02); Immature Granulocytes % (auto) 0.4 %; Lymphocytes # (auto) 2.23 K/uL (1.2-3.4); Lymphocytes % (auto) 10.4 %; Mean Corpuscular Hgb Conc 31.9 g/dL (32-36); Mean Platelet Volume 10.2 fL (7.4-10.4); Monocytes # (auto) 1.29 K/uL (0.11-0.59); Neutrophils # (auto) 17.74 K/uL (1.4-6.5); Neutrophils % (auto) 83.1 %; Platelet Count 227 K/uL (130-400); RDW Coefficient of Variation 16.8 % (11.5-14.5); RDW Standard Deviation 55.2 fL (36.4-46.3); Red Blood Count 4.44 M/uL (4.2-5.4); White Blood Count 21.38 K/uL (4.8-10.8)
--- NOTE | 2019-02-20 07:17 | History and Physical Report ---
DATE OF ADMISSION: 02/19/2019 CHIEF COMPLAINT: Pain in the left lower extremity. HISTORY OF PRESENT ILLNESS: This is a 63-year-old female with past medical history significant for diabetes, chronic kidney disease stage III, hypothyroidism, hyperlipidemia, history of chronic gout, polycystic ovarian syndrome, COPD, moderate obstructive sleep apnea, noncompliant with CPA;, moderate persistent asthma without complication, chronic atrial fibrillation, morbid obesity, GERD, peripheral edema, benign positional vertigo, depression with anxiety, history of noncompliance with medical treatment, presents with increasing erythema and swelling of the left lower extremity. The patient has left first toe diabetic ulcer and she is following with podiatry for several weeks. Currently, she is not on any antibiotic.History of cellulitis in the same extremity in the past which was resolved. But since last weekend erythema in the left leg slowly coming back and causing a lot of pain, having difficulty ambulation, because of which she came to the ER. She uses a special boot on that leg. She is concerned the boot might have caused an infection. In the ER, she had a temp spike, white count was elevated, procalcitonin was elevated, vancomycin and Zosyn was given and we were called for admission. Currently, patient is resting comfortably. Denies any headache. No sore throat. Appetite is okay. No difficulty swallowing. No chest pain, no shortness of breath. She coughs in the morning with some whitish phlegm . No nausea, no abdominal pain. She says sugars her very well controlled, average sugars are in 120s now. Normal bowel and bladder movements. No blood in the stools, no hematuria, no burning micturition. She says her CPAP broke and she has not used it for a long time and she has an appointment with sleep doctor again. She says she will try the CPAP in the hospital. ALLERGIES: GIN INHIBITORS, ACTOS, CODEINE, DEMEROL AND VICODIN. PAST MEDICAL HISTORY: As mentioned above. PAST SURGICAL HISTORY: Left breast lesion excision, dental surgery, hernia repair, cholecystectomy and debridement of the skin and subcutaneous tissue. MEDICATIONS: The patient is on valsartan/hydrochlorothiazide 320/25 mg 1 tablet daily, Diclofenac sodium gel apply topically 4 times a day, Humalog 30 units in a.m. per sliding scale, 15 units at 2:00 p.m. per sliding scale, 30 units in p.m. per sliding scale, Gabapentin 600 mg p.o. b.i.d., Pradaxa 150 mg p.o. b.i.d., allopurinol 100 mg p.o. b.i.d., atorvastatin 40 mg p.o. at bedtime, Wellbutrin-SR 150 mg p.o. b.i.d., diltiazem 360 mg p.o. daily, Jardiance 25 mg p.o. daily, gemfibrozil 600 mg p.o. b.i.d., Combivent Respimat 1 puff q.i.d., levothyroxine 112 mcg daily, Lopressor 25 mg p.o. b.i.d., Mometasone Furoate 2 sprays into each nostril daily, albuterol nebulization every 4 hours p.r.n., aspirin 81 mg p.o. daily, Tessalon Perles 100 mg p.o. t.i.d. p.r.n., Lantus 50 units b.i.d., Silvadene 1% to affected area daily. FAMILY HISTORY: No family history on file. SOCIAL HISTORY: Currently living with her daughter, and grand kids. Quit smoking in 1976. Alcohol rarely. No drug use. REVIEW OF SYMPTOMS: As per HPI. Rest of review is negative. PHYSICAL EXAMINATION: GENERAL: The patient is morbidly obese. VITAL SIGNS: Temperature T-max is 38.3, pulse 97, respiratory rate 19, blood pressure 100/60, oxygen 92% on room air. HEENT: No pallor, no icterus. Pupils equal, round, and reactive to light. NECK: No JVD, no neck masses, no carotid bruit. CARDIOVASCULAR: S1, S2 heard, regular rate and rhythm, no murmur, no gallop. RESPIRATORY SYSTEM: Normal AP diameter. No accessory muscle use. No wheezing, no crackles. ABDOMEN: Soft, bowel sounds present. Nontender. CENTRAL NERVOUS SYSTEM: Cranial nerves II-XII grossly intact, nonfocal. EXTREMITIES: The left lower extremity is erythematous, swollen and there is open wounds seen on the right big toe on the dorsal aspect. LABORATORIESS: WBC 18, hemoglobin 15.1, hematocrit 44.9, platelets 269. Sodium 138, potassium 4.2, chloride 104, bicarbonate 27, BUN 24, creatinine 1.12, serum glucose 110. Lactate 1.8, calcium 9.4, total bilirubin 0.4, AST 22, ALT 20, alkaline phosphatase 102. Procalcitonin 1.03. Influenza A and B negative. CT of the head, no acute abnormality identified. Chest x-ray, no acute process identified. EKG: Atrial fibrillation with rapid ventricular response at a rate of 103. No acute findings. ASSESSMENT AND PLAN: This is a 63-year-old female who presents with left lower extremity cellulitis and left foot big toe nonhealing diabetic foot ulcer. 1. Left extremity cellulitis and diabetic wound and also with elevated white count and temperature spike in the ER, was started on IV vancomycin and IV Zosyn. Follow the blood cultures, wound care and ID consult Will monitor the response. Will also follow Doppler for any DVT. 2. Diabetes. Continue home Lantus. ISS. Will monitor blood sugars in the hospital. 3. Hyperlipidemia. Continue statin. 4. Depression with anxiety. Continue bupropion. 5. Gout. Continue allopurinol. 6. History of atrial fibrillation, rate controlled on diltiazem and Lopressor. On Pradaxa. 7. Hypothyroidism, on Synthroid. 8. Hypertension, on Cardizem, Lopressor and Valsartan/HCTZ. We will monitor the blood pressure. 9. Chronic obstructive pulmonary disease. Continue home inhalers and nebs p.r.n. 10. Obstructive sleep apnea. Noncompliant with CPAP at home. She has an appointment with sleep doctor. She is agreeable to try the CPAP in the hospital. 11. Morbid obesity, needs counseling. 12. Chronic kidney disease stage III, baseline creatinine of 1 to 1.1. Lasix was held last at admission. Needs to follow with nephrology. 13. Deep venous thrombosis prophylaxis, on Pradaxa. DISPOSITION: Admit to med/surg tele. Level 1 full code. PT and OT prior to discharge. Social Service to help with discharge planning. KYD
[2019-02-20 07:44] LABS: BUN Creatinine Ratio 24.1 (10-20); Calcium 8.7 mg/dl (8.5-10.1); Creatinine Clr Calc Pharmacy 64.9 ml/min; Est GFR (African American) 51.5; Est GFR (Non-African American) 44.5; Magnesium 2.2 mg/dl (1.8-2.4)
[2019-02-20 07:53] LABS: Estimated Average Glucose 154 mg/dl
[2019-02-20] MEDS: ASPIRIN 81 MG ECTAB PO SCH (08:25)
[2019-02-20] MEDS: FLUTICASONE PROPIONATE NA SPR 16 GM BTL SCH (08:25)
[2019-02-20] MEDS: IPRATROPIUM BROMIDE/ALBUTEROL respimat INH INH SCH ×2 (08:25→12:30)
[2019-02-20] MEDS: GEMFIBROZIL 600 MG TAB PO SCH ×2 (08:26→20:30)
[2019-02-20] MEDS: DABIGATRAN ETEXILATE 75 MG CAP PO SCH ×2 (08:26→20:29)
[2019-02-20] MEDS: GABAPENTIN 600 MG TAB PO SCH ×2 (08:26→20:30)
[2019-02-20] MEDS: ALLOPURINOL 100 MG TAB PO SCH ×2 (08:27→20:31)
[2019-02-20] MEDS: BuPROPion SR 150 MG TABCR PO SCH ×2 (08:27→20:31)
[2019-02-20] MEDS: DICLOFENAC SOD 1% GEL 100 GM TUBE EXT SCH ×4 (08:27→20:29)
[2019-02-20] MEDS: METOPROLOL TARTRATE 25 MG TAB PO SCH ×2 (08:28→20:30)
[2019-02-20] MEDS: INSULIN GLARGINE SOLOSTAR 100 UNITS/ML 3 ML PEN SQ SCH ×2 (08:33→20:28)
[2019-02-20] MEDS: VANCOMYCIN HCL 1,750 MG in SODIUM CHLORIDE 0.9% 500 ML IV SCH ×2 (10:03→23:37)
--- NOTE | 2019-02-20 10:03 | Hospitalist Progress Note ---
Date of Service February 20, 2019 Assessment & Plan (1) Bacteremia: Cont Vanc and Zosyn pending cultures and clinical improvement per ID recs. (2) Cellulitis of left lower extremity: Vanc/Zosyn (3) Diabetic ulcer of left great toe: chronic, not red or draining. Does not appear to be an issue now. (4) T2DM (type 2 diabetes mellitus): glargine/ISS (5) HTN (hypertension): controlled, cont home medications. (6) COPD (chronic obstructive pulmonary disease): wheezing present and just today upon admission she had some sputum changes. Will add bronchodilators and have her be reseen as outpatient. (7) Diabetic neuropathy: (8) CKD (chronic kidney disease) stage 3, GFR 30-59 ml/min: around baseline. Avoid nephrotoxic substances. (9) Morbid obesity: PT/OT (10) Atrial fibrillation: Pradaxa, Diltiazem, BB. (11) DVT prophylaxis: Pradaxa Full Dispo-uncertain at this time. Subjective 63 yo diabetic female with a long-standing toe ulcer on the L, presented with a red, swollen LLE and a fever. Since admission she has been hemodynamically stable but is growing bacteria in her blood. She denies any pain at this time. She wears a boot around this leg and states she was at her sister's house recently, who happens to be a hoarder. She states there were mouse droppings in her apt and she was wondering if thi smight have infected her leg. Her toe wound is not red or draining , and it is followed by a taker off. The erythema doesn't appear to involve her foot. Review of Systems Review of Systems: All systems reviewed & are unremarkable except as noted in HPI & below Physical Exam Physical Exam: CONSTITUTIONAL: obesity, vitals as above, generally well- appearing EYES: normal conjunctivae, no scleral icterus ENT: MMM RESPIRATORY: wheezing throughout lungs, normal respiratory effort CARDIOVASCULAR: regular rate and rhythm, S1 and 2 heard without murmurs, gallops or rubs, no JVD, GASTROINTESTINAL: soft, nontender, nondistended, very large, protuberant abdomen MUSCULOSKELETAL: strength 5/5 throughout, head is normocephalic and atraumatic SKIN: warm and dry, erythema on LLE that doesn't involve the foot. NEUROLOGIC: CN 2-12 grossly intact, no gross focal deficit PSYCHIATRIC: alert cooperative and oriented to person, place and time. Results & Data Vital Signs (Past 12 Hours) Vital Signs Temp Pulse Pulse Resp BP BP Pulse Ox 02/20/19 08:07 37.0 C 77 20 89/52 L 93 02/20/19 06:45 37.5 C 02/20/19 04:51 37.9 C H 79 22 103/62 92 02/20/19 02:31 90 20 112/64 92 02/20/19 00:00 97 H 19 100/60 92 02/19/19 22:16 37.0 C Laboratory Results Short CBC 02/19/19 02/20/19 Range/Units 21:20 06:58 WBC 18.63 H 21.38 H (4.8-10.8) K/uL Hgb 15.1 12.9 (12.0-16.0) g/dL Hct 44.9 40.4 (37-47) % Plt Count 269 227 (130-400) K/uL BMP 02/19/19 02/20/19 21:20 06:58 Sodium 138 139 Potassium 4.2 4.0 Chloride 104 103 Carbon Dioxide 27 28 BUN 24 H 31 H Creatinine 1.12 1.28 H Glucose 110 H 137 H Calcium 9.4 8.7 Cardiac Enzymes 02/19/19 Range/Units 21:20 Troponin I < 0.015 (0-0.045) ng/ml Liver Function 02/19/19 Range/Units 21:20 Total Bilirubin 0.4 (0.2-1) mg/dl AST 22 (15-37) U/L ALT 20 (12-78) U/L Alkaline Phosphatase 102 (45-117) U/L Albumin 3.2 L (3.4-5.0) gm/dl Medications Administered Current Inpatient Medications Acetaminophen (Tylenol) 650 mg PO Q4H PRN PRN Reason: pain/fever Stop: 03/22/19 02:55 Last Admin: 02/20/19 04:55 Dose: 650 mg Documented by: Albuterol (Combivent Respimat) 1 puffs INH QID [facility] Stop: 03/22/19 08:59 Last Admin: 02/20/19 08:25 Dose: 1 puffs Documented by: Albuterol (Ventolin 0.083% 2.5mg/3ml) 2.5 mg INH Q4H PRN PRN Reason: Wheezing Stop: 03/22/19 02:55 Allopurinol (Zyloprim) 100 mg PO BID [facility] Stop: 03/22/19 08:59 Last Admin: 02/20/19 08:27 Dose: 100 mg Documented by: Aspirin (Ecotrin Ectab) 81 mg PO QAM [facility] Stop: 03/22/19 08:59 Last Admin: 02/20/19 08:25 Dose: 81 mg Documented by: Benzonatate (Tessalon Perle) 100 mg PO TID PRN PRN Reason: Cough Stop: 03/22/19 02:55 Bupropion HCl (Wellbutrin-Sr) 150 mg PO BID [facility] Stop: 03/22/19 08:59 Last Admin: 02/20/19 08:27 Dose: 150 mg Documented by: Dabigatran (Pradaxa) 150 mg PO BID [facility] Stop: 03/22/19 08:59 Last Admin: 02/20/19 08:26 Dose: 150 mg Documented by: Dextrose (Dextrose 50%) 25 - 50 ml IV UD PRN; Protocol PRN Reason: Hypoglycemia Protocol Stop: 03/22/19 04:44 Diclofenac Sodium (Voltaren 1% Top) 2 appln EXT QID [facility] Stop: 03/22/19 08:59 Last Admin: 02/20/19 08:27 Dose: 2 appln Documented by: [facility]iazem [facility]ac) [facility]: 03/22/19 08:59 Fluticasone Propionate (Flonase) [facility] sprays [facility] Stop: 03/22/19 08:59 Last Admin: 02/20/19 08:25 Dose: 2 sprays Documented by: Gabapentin (Neurontin) 600 mg PO BID [facility] Stop: 03/22/19 08:59 Last Admin: 02/20/19 08:26 Dose: 600 mg Documented by: Gemfibrozil (Lopid) 600 mg PO BID [facility] Stop: 03/22/19 08:59 Last Admin: 02/20/19 08:26 Dose: 600 mg Documented by: Glucagon (Glucagen) 1 mg IM UD PRN; Protocol PRN Reason: Hypoglycemia Protocol Stop: 03/22/19 04:44 Glucose (Glucose 40%) 15 - 30 gm PO UD PRN; Protocol PRN Reason: Hypoglycemia Protocol Stop: 03/22/19 04:44 Glucose (Dex4 Glucose) 4 - 8 tabs PO UD PRN; Protocol PRN Reason: Hypoglycemia Protocol Stop: 03/22/19 04:44 Hydrochlorothiazide (Hctz) 25 mg PO QAM [facility] Stop: 03/22/19 08:59 Vancomycin HCl 1,750 mg/ (Sodium Chloride) 535 mls @ 200 mls/hr IV Q14H [facility] Stop: 03/02/19 09:59 Piperacillin Sod/Tazobactam (Sod 4.5 gm/ Dextrose) 120 mls @ 30 mls/hr IV Q8H CAMPOS; Protocol Stop: 03/02/19 03:59 Last Infusion: 02/20/19 08:03 Dose: Infused Documented by: Insulin Aspart (Novolog Flexpen) 0 units SC ACHS [facility] Stop: 03/22/19 07:29 Last Admin: 02/20/19 08:32 Dose: 4 units Documented by: Insulin Glargine (Lantus Solostar Pen) 50 units SQ BID [facility] Stop: 03/22/19 08:59 Last Admin: 02/20/19 08:33 Dose: 50 units Documented by: Levothyroxine Sodium (Synthroid) 112 mcg PO DAILYBB [facility] Stop: 03/22/19 06:29 Last Admin: 02/20/19 05:51 Dose: 112 mcg Documented by: Metoprolol Tartrate (Lopressor) 25 mg PO BID [facility] Stop: 03/22/19 08:59 Last Admin: 02/20/19 08:28 Dose: Not Given Documented by: Miscellaneous (Carbohydrates For Hypoglycemia) 15 - 30 gm PO UD PRN PRN Reason: Hypoglycemia Treatment Stop: 03/22/19 04:44 Miscellaneous Information (Consult) 1 ea N/A UD PRN PRN Reason: Consult Stop: 03/22/19 02:55 Miscellaneous Information (Consult) 1 ea N/A UD PRN PRN Reason: Consult Stop: 03/22/19 02:55 Ondansetron HCl (Zofran) 4 mg IV Q6H PRN PRN Reason: Nausea Stop: 03/22/19 02:55 Valsartan (Diovan) 320 mg PO DAILY [facility] Stop: 03/22/19 08:59 (1) T2DM (type 2 diabetes mellitus) Diabetes mellitus complication detail: with other skin complication Diabetes mellitus complication status: with skin complications Diabetes mellitus gambling monitor insulin use: with [facility] use Qualified Code(s): E11.628 - Type 2 diabetes mellitus with other skin complications; 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
--- NOTE | 2019-02-20 10:47 | Infectious Disease Consult ---
Date of Consultation February 20, 2019 Assessment & Plan (1) Gram negative sepsis: Patient with gram-negative bacteremia in the setting of left leg cellulitis and diabetic toe ulcer. Current treatment with vancomycin and Zosyn will provide adequate coverage pending final identification and sensitivities and further culture results. Will follow. (2) Cellulitis of left lower extremity: (3) Diabetic ulcer of left great toe: History of Present Illness Reason for Consultation: Recurrent lower extremity cellulitis, diabetic foot ulcer Attending Physician: Sola Harris DO History of Present Illness 63-year-old female with complicated medical history including diabetes mellitus, COPD, hypertension, hyperlipidemia, stage III chronic kidney disease, hypothyroidism, morbid obesity, with prior history of lower extremity cellulitis, was been followed over the past several weeks by podiatry for left great toe ulcer. She has been treated with wound care and a boot to relieve pressure, but was admitted to the hospital with several days of progressively worsening pain, swelling, and erythema of her left lower extremity. She was found to have evidence of cellulitis, and was started on Zosyn and vancomycin. Blood cultures now reported positive for gram-negative bacilli. Patient feeling somewhat better since admission, no fever at present. Pain in foot currently 1- 2 out of 10 in intensity. Allergies Allergy/AdvReac Type Severity Reaction Status Date / Time GIN Inhibitors Allergy Unknown UNK Verified 02/19/19 23:56 cat dander Allergy Unknown UNK Verified 02/19/19 23:56 codeine Allergy Unknown "CODEINE Verified 02/19/19 23:56 DERIVITIVES" house dust Allergy Unknown Unknown Verified 02/19/19 23:57 hydrocodone Allergy Unknown unknown Unverified 02/19/19 23:57 meperidine Allergy Unknown _ Verified 02/19/19 23:57 morphine Allergy Unknown "MORPHINE Verified 02/19/19 23:57 DERIVATIVES", MORPHINE IS OK pioglitazone Allergy Unknown UNK Verified 02/19/19 23:57 nickel AdvReac Rash Verified 02/19/19 23:58 Cockroach Allergy Unknown UNK Uncoded 02/19/19 23:58 Unclassified Drugs Allergy Unknown "ALLERGIC Uncoded 09/28/18 16:24 TO TREES" Home Medications Home Medications Medication Instructions Recorded Confirmed Type Lantus Solostar U-100 Insulin 50 unit SUBCUT BID 09/28/18 02/19/19 History Pradaxa 150 mg PO BID 09/28/18 02/19/19 History allopurinol 100 mg PO BID 09/28/18 02/19/19 History aspirin [Aspirin Low Dose] 81 mg PO QAM 09/28/18 02/19/19 History atorvastatin 40 mg PO HS 09/28/18 02/19/19 History benzonatate 100 mg PO TID PRN 09/28/18 02/19/19 History diltiazem HCl 360 mg PO QAM 09/28/18 02/19/19 History empagliflozin 25 mg PO QAM 09/28/18 02/19/19 History gabapentin 600 mg PO BID 09/28/18 02/19/19 History gemfibrozil 600 mg PO BID 09/28/18 02/19/19 History insulin lispro [Humalog KwikPen 15 unit SUBCUT 1400 PRN 09/28/18 02/19/19 History Insulin] insulin lispro [Humalog KwikPen 30 unit SUBCUT .EVENING MEAL PRN 09/28/18 02/19/19 History Insulin] insulin lispro [Humalog KwikPen 35 unit SUBCUT QAM PRN 09/28/18 02/19/19 History Insulin] ipratropium-albuterol 1 puff INHALATION QID 09/28/18 02/19/19 History levothyroxine 112 mcg PO QAM 09/28/18 02/19/19 History metoprolol tartrate 25 mg PO BID 09/28/18 02/19/19 History mometasone 2 spray INTRANASAL QAM 09/28/18 02/19/19 History bupropion HCl 150 mg PO BID 12/09/18 02/19/19 History diclofenac sodium 2 g TOPICAL QID 12/09/18 02/19/19 History albuterol sulfate 2.5 mg INHALATION Q4H PRN 02/19/19 02/19/19 History valsartan-hydrochlorothiazide 1 tab PO DAILY 02/19/19 02/19/19 History Patient History Medical History T2DM (type 2 diabetes mellitus) (Chronic) HTN (hypertension) (Chronic) HLD (hyperlipidemia) (Chronic) COPD (chronic obstructive pulmonary disease) (Chronic) NAVI (obstructive sleep apnea) (Chronic) Diabetic neuropathy (Chronic) CKD (chronic kidney disease) stage 3, GFR 30-59 ml/min (Chronic) GERD (gastroesophageal reflux disease) (Chronic) Depression (Chronic) Hypothyroid (Chronic) Gout (Chronic) Morbid obesity (Chronic) Atrial fibrillation (Chronic) Atrial fibrillation with rapid ventricular response (Resolved 07/14/14) Cellulitis (Resolved) Surgical History History of cholecystectomy (Resolved) History of hernia repair (Resolved) Family History Father Myocardial infarction Coronary heart disease Mother Complication of surgery Other No significant family history T2DM (type 2 diabetes mellitus) Social History Preferred Language: Lao Communication Ability: Effective Order Processing Specialist Required: No Beliefs That Will Affect Care: None marital status: Current Living Situation: Family Current Living Situation Comment: Lives at home with daugther, son in law and grandchildren Feels Safe at Home: Yes Safety Concerns: Feels Safe At This Time Smoking Status: Former smoker Second Hand Exposure: Yes Hx Alcohol Use: No Hx Substance Use: No Review of Systems Review of Systems: All systems reviewed & are unremarkable except as noted in HPI & below Physical Exam Constitutional: WD/WN, vitals as above well developed, well nourished and + morbidly obese; no acute distress Eyes: PERRL, conjunctivae normal, anicteric sclerae ENMT: external ear and nose normal, oropharynx normal Neck: trachea midline, no thyromegaly normal visual inspection Thyroid: thyroid nontender Respiratory: normal respiratory effort, lungs clear to auscultation normal percussion; no respiratory distress Cardiovascular: RRR, no murmur, no edema Gastrointestinal (Abdomen): normal bowel sounds, soft, nontender, no hepatosplenomegaly Percussion/Palpation: no abdominal mass Musculoskeletal: no cyanosis or clubbing, extremities motor strength 5/5 Head/Neck/Chest: normocephalic and head atraumatic Skin: normal turgor, + ulcer (Left great toe) and + erythema (Left leg and thigh); no rashes Neurologic: moves all extremities and awake; no focal motor deficits Psychiatric: A+Ox3, euthymic affect Lymphatic: no cervical or axillary lymphadenopathy no inguinal lymphadenopathy Results & Data Vital Signs (Past 12 Hours) Vital Signs Temp Pulse Pulse Resp BP BP Pulse Ox 02/20/19 10:07 84 100/61 02/20/19 08:07 37.0 C 77 20 89/52 L 93 02/20/19 06:45 37.5 C 02/20/19 04:51 37.9 C H 79 22 103/62 92 02/20/19 02:31 90 20 112/64 92 02/20/19 00:00 97 H 19 100/60 92 Laboratory Results Short CBC 02/19/19 02/20/19 Range/Units 21:20 06:58 WBC 18.63 H 21.38 H (4.8-10.8) K/uL Hgb 15.1 12.9 (12.0-16.0) g/dL Hct 44.9 40.4 (37-47) % Plt Count 269 227 (130-400) K/uL BMP 02/19/19 02/20/19 21:20 06:58 Sodium 138 139 Potassium 4.2 4.0 Chloride 104 103 Carbon Dioxide 27 28 BUN 24 H 31 H Creatinine 1.12 1.28 H Glucose 110 H 137 H Calcium 9.4 8.7 Cardiac Enzymes 02/19/19 Range/Units 21:20 Troponin I < 0.015 (0-0.045) ng/ml Liver Function 02/19/19 Range/Units 21:20 Total Bilirubin 0.4 (0.2-1) mg/dl AST 22 (15-37) U/L ALT 20 (12-78) U/L Alkaline Phosphatase 102 (45-117) U/L Albumin 3.2 L (3.4-5.0) gm/dl Diagnostic Findings Microbiology 02/19/19 21:20 Blood Anaerobic Blood Culture - Preliminary Gram negative bacilli LEFT LOWER EXTREMITY VENOUS DOPPLER HISTORY: Left leg swelling. COMPARISON STUDY: None. FINDINGS: There is normal compressibility, flow, and augmentation within the left lower extremity deep venous system. IMPRESSION: No DVT within the left lower extremity. Electronically signed by: Bhupinder Alanis M.D. 02/20/2019 7:01 AM Dictated: 02/20/19700 Transcribed: 02/20/19700
[2019-02-20] MEDS: VALSARTAN 80 MG TAB PO SCH (12:29)
[2019-02-20] MEDS: dilTIAZem ER 180 MG CAPCR PO SCH (12:30)
[2019-02-20] MEDS: hydroCHLOROthiazide 25 MG TAB PO SCH (12:31)
--- NOTE | 2019-02-20 13:29 | Pharmacy Report ---
Pharmacy Abx Initial Consult - Date of Service February 20, 2019 - Pharmacy Dosing Scope Date of Consult: 02-20 Consultation requested by: Dr. Vallejo Pharmacy is consulted to initiate vancomycin and zosyn dosing therapy, order appropriate labs and adjust drug dose/frequency. - Subjective The patient is a 63 year old F admitted on 02/20/19 01:39. - Objective Height: 5 ft 3 in Weight: 149.7 kg Lab Results (24hrs): Laboratory Tests (24 Hours) 02/20/19 02/20/19 02/19/19 06:58 06:58 21:20 WBC 21.38 H Neut # (Auto) 17.74 H Creatinine 1.28 H Est Cr Clr Drug Dosing 64.9 Procalcitonin 1.03 H Micro Results: 02/19/19 22:11 Anaerobic Blood Culture - Pending Blood - Assessment & Plan Assessment/Plan: Patient started on vancomycin/zosyn for left leg cellulitis/diabetic toe ulcer. Of note, blood cultures now positive for Gm negative bacilli. ID consulted to also follow the patient. Vancomycin: * Patient received [place] dose [place] 2750 mg of vancomycin last evening * Maintenance dose of vancomycin 1750 mg (~12 mg/kg) iv q 14 hrs started to achieve an estimated trough ~15-20 mcg/ml * Estimated kinetics: t1/2~12 hrs, ke~0.058 hr-1, CrCl ~65 ml/min - baseline Scr appears to be around 1.1 mg/dL * Trough ordered prior to the 0400 dose on 02/22 to ensure therapeutic, however if Scr continues to trend upward may consider obtaining trough earlier * Patient is at risk for accumulation with vancomycin due to elevated BMI >35 kg/m2 - therefore will monitor closely Zosyn: * 4.5 gm iv q8 hrs - appropriate for CrCl >20 ml/min and BMI >35 kg/m2 Pharmacy will continue to follow and will adjust dose/frequency as necessary. Thank you.
[2019-02-20 13:55] LABS: Appearance Urine Clear (Clear); Bacteria Urine Automated Negative (Negative); Bilirubin Urine Negative (Negative); Color Urine Yellow; Glucose Urine UA 3+ (Negative); Ketones Urine Negative (Negative); Leukocyte Esterase Urine Negative (Negative); Nitrite Urine Negative (Negative); Protein Urine Negative (Negative); Specific Gravity Urine 1.024 (1.000-1.030); Urobilinogen Urine Negative (Negative)
[2019-02-20] MEDS: ALBUT/IPRATROP 3MG/0.5MG NEB 3 ML VIAL NEB SCH ×2 (16:00→18:49)
[2019-02-21] MEDS: PIPERACILLIN/TAZOBACTAM 4.5 GM in DEXTROSE 5% 100 ML IV SCH ×3 (04:26→20:20)
[2019-02-21] MEDS: LEVOTHYROXINE SODIUM 112 MCG TABLET PO SCH (04:27)
[2019-02-21 06:23] LABS: Hematocrit (blood only) 38.8 % (37-47); Hemoglobin 12.3 g/dL (12.0-16.0); Mean Corpuscular Hgb Conc 31.7 g/dL (32-36); Mean Corpuscular Volume 91.3 fL (80-100); Mean Platelet Volume 10.2 fL (7.4-10.4); Platelet Count 225 K/uL (130-400); RDW Coefficient of Variation 16.9 % (11.5-14.5); RDW Standard Deviation 56.3 fL (36.4-46.3); Red Blood Count 4.25 M/uL (4.2-5.4); White Blood Count 13.25 K/uL (4.8-10.8)
[2019-02-21] MEDS: ALBUT/IPRATROP 3MG/0.5MG NEB 3 ML VIAL NEB SCH ×4 (06:56→19:37)
[2019-02-21 07:04] LABS: BUN Creatinine Ratio 26.5 (10-20); Creatinine Clr Calc Pharmacy 63.9 ml/min; Est GFR (African American) 50.6; Est GFR (Non-African American) 43.6; Potassium 3.9 mmol/L (3.5-5.1)
[2019-02-21] MEDS: FLUTICASONE PROPIONATE NA SPR 16 GM BTL SCH (08:04)
[2019-02-21] MEDS: VALSARTAN 80 MG TAB PO SCH (08:04)
[2019-02-21] MEDS: ASPIRIN 81 MG ECTAB PO SCH (08:04)
[2019-02-21] MEDS: GABAPENTIN 600 MG TAB PO SCH ×2 (08:05→20:35)
[2019-02-21] MEDS: METOPROLOL TARTRATE 25 MG TAB PO SCH ×2 (08:05→20:35)
[2019-02-21] MEDS: GEMFIBROZIL 600 MG TAB PO SCH ×2 (08:05→20:35)
[2019-02-21] MEDS: dilTIAZem ER 180 MG CAPCR PO SCH (08:06)
[2019-02-21] MEDS: DICLOFENAC SOD 1% GEL 100 GM TUBE EXT SCH ×4 (08:06→23:29)
[2019-02-21] MEDS: DABIGATRAN ETEXILATE 75 MG CAP PO SCH ×2 (08:06→20:35)
[2019-02-21] MEDS: BuPROPion SR 150 MG TABCR PO SCH ×2 (08:07→20:35)
[2019-02-21] MEDS: ALLOPURINOL 100 MG TAB PO SCH ×2 (08:07→20:35)
[2019-02-21] MEDS: INSULIN GLARGINE SOLOSTAR 100 UNITS/ML 3 ML PEN SQ SCH ×2 (08:13→20:39)
[2019-02-21] MEDS: INSULIN ASPART 100 UNITS/ML 3 ML PEN SC SCH ×4 (08:13→20:41)
[2019-02-21] MEDS ORDERED: VANCOMYCIN TROUGH ONE (13:30)
[2019-02-21] MEDS: VANCOMYCIN HCL 1,750 MG in SODIUM CHLORIDE 0.9% 500 ML IV SCH (14:08)
--- NOTE | 2019-02-21 15:58 | Pharmacy Report ---
Pharmacy Abx Dose Short Note - Date of Service February 21, 2019 - Assessment & Plan Assessment 63 year old F receiving Vancomycin for treatment of L toe wound. Day #3 of antimicrobial therapy. Plan Vancomycin * Trough level of 17.5 mcg/mL is therapeutic currently, however the level was drawn after only 2 maintenance doses and therefore not at steady state. * Continue dose of Vancomycin 1750 mg IV every 14 hours for now. * Goal trough level for Cellulitis toe wound: 15 to 20 mcg/mL * Will order another trough level in 2 days if Vancomycin therapy continues. Pharmacy will continue to follow and will adjust dose/frequency as necessary. Thank you.
[2019-02-21] MEDS: ACETAMINOPHEN 325 MG TAB PO PRN ×2 (16:25→23:29)
--- NOTE | 2019-02-21 19:34 | Hospitalist Progress Note ---
Date of Service February 21, 2019 Assessment & Plan (1) Bacteremia: Gram-negative bacteremia Blood Culture: Gram-negative bacilli Continue Vancomycin and Zosyn Appreciate ID input Repeat blood cultures in a.m. Check echo (2) Cellulitis of left lower extremity: Continue Vanc/Zosyn ID on board Continue wound Care (3) Diabetic ulcer of left great toe: Management as above (4) T2DM (type 2 diabetes mellitus): A1C: 7.0 Continue ISS, Glargine (5) HTN (hypertension): controlled Continue current medication (6) COPD (chronic obstructive pulmonary disease): Continue Nebs (7) Diabetic neuropathy: (8) CKD (chronic kidney disease) stage 3, GFR 30-59 ml/min: Cr near baseline Avoid nephrotoxic agents as able Monitor renal function (9) Morbid obesity: BMI:58 (10) Atrial fibrillation: Continue Pradaxa, Diltiazem, metoprolol (11) DVT prophylaxis: Pradaxa Code Status Full Code Subjective Patient is seen and examined at bedside States having left leg pain with movement Denies any chest pain, shortness of breath, dizziness, nausea, abdominal pain Offers no other complaints Review of Systems Review of Systems: All systems reviewed & are unremarkable except as noted in HPI & below Physical Exam Physical Exam: Physical Exam: Vitals signs as noted above General Appearance:Obese, no apparent distress Head: normocephalic, Atraumatic Eyes: normal inspection, EOMI Neck: supple, Trachea midline Respiratory/Chest: Normal breath sounds, CTA Cardiovascular: S1, S2, No murmur Abdomen/GI:Soft, Non tender, Bowel sounds present Extremities/Musculoskelatal:normal inspection, Left leg erythematous, + Foot ulcer Neurologic/Psych:AAOX3, grossly no focal neurological deficits Skin: normal color, warm Results & Data Vital Signs (Past 12 Hours) Vital Signs Temp Pulse Resp BP Pulse Ox Pulse Ox Pulse Ox 02/21/19 16:00 36.4 C L 70 20 102/64 97 02/21/19 15:06 54 L 18 95 02/21/19 11:33 93 02/21/19 11:08 95 96 02/21/19 11:03 79 16 95 Laboratory Results Short CBC 02/21/19 Range/Units 06:13 WBC 13.25 H (4.8-10.8) K/uL Hgb 12.3 (12.0-16.0) g/dL Hct 38.8 (37-47) % Plt Count 225 (130-400) K/uL BMP 02/21/19 06:13 Sodium 139 Potassium 3.9 Chloride 105 Carbon Dioxide 28 BUN 35 H Creatinine 1.30 H Glucose 128 H Calcium 9.0 (1) T2DM (type 2 diabetes mellitus) Diabetes mellitus manager intermediate insulin use: with group home use Diabetes mellitus complication status: with skin complications Diabetes mellitus complication detail: with other skin complication Qualified Code(s): E11.628 - Type 2 diabetes mellitus with other skin complications; Z79.4 - senior care (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
[2019-02-22] MEDS: VANCOMYCIN HCL 1,750 MG in SODIUM CHLORIDE 0.9% 500 ML IV SCH (02:59)
--- NOTE | 2019-02-22 03:10 | Infectious Disease Progress Nt ---
Date of Service February 21, 2019 Assessment & Plan (1) Gram negative sepsis: Patient with gram-negative bacteremia in the setting of left leg cellulitis and diabetic toe ulcer. Current treatment with vancomycin and Zosyn will provide adequate coverage pending final identification and sensitivities and further culture results. Will follow. (2) Cellulitis of left lower extremity: (3) Diabetic ulcer of left great toe: Subjective States having left leg pain with movement Denies any chest pain, shortness of breath, dizziness, nausea, abdominal pain Offers no other complaints. Remains afebrile. Physical Exam Constitutional: WD/WN, vitals as above well developed, well nourished and + morbidly obese; no acute distress Eyes: PERRL, conjunctivae normal, anicteric sclerae ENMT: external ear and nose normal, oropharynx normal Neck: trachea midline, no thyromegaly normal visual inspection Thyroid: thyroid nontender Respiratory: normal respiratory effort, lungs clear to auscultation normal percussion; no respiratory distress Cardiovascular: RRR, no murmur, no edema Gastrointestinal (Abdomen): normal bowel sounds, soft, nontender, no hepatosplenomegaly Percussion/Palpation: no abdominal mass Musculoskeletal: no cyanosis or clubbing, extremities motor strength 5/5 Head/Neck/Chest: normocephalic and head atraumatic Skin: normal turgor, + ulcer (Left great toe) and + erythema (Left leg and thigh); no rashes Neurologic: moves all extremities and awake; no focal motor deficits Psychiatric: A+Ox3, euthymic affect Lymphatic: no cervical or axillary lymphadenopathy no inguinal lymphadenopathy Results & Data Vital Signs (Past 12 Hours) Vital Signs Temp Pulse Resp BP Pulse Ox 02/21/19 23:00 36.7 C 75 20 135/73 95 02/21/19 19:37 93 H 18 97 02/21/19 16:00 36.4 C L 70 20 102/64 97 Laboratory Results Short CBC 02/21/19 Range/Units 06:13 WBC 13.25 H (4.8-10.8) K/uL Hgb 12.3 (12.0-16.0) g/dL Hct 38.8 (37-47) % Plt Count 225 (130-400) K/uL BMP 02/21/19 06:13 Sodium 139 Potassium 3.9 Chloride 105 Carbon Dioxide 28 BUN 35 H Creatinine 1.30 H Glucose 128 H Calcium 9.0 Diagnostic Findings Microbiology 02/19/19 22:11 Blood Aerobic Blood Culture - Preliminary Gram negative bacilli 02/19/19 22:11 Blood Anaerobic Blood Culture - Preliminary No growth in Anaerobic bottle after 48 hours. 02/20/19 13:40 Urine,Clean Catch Urine Culture - Preliminary No growth - Less than 1,000 colonies/mL, Final report to follow. 02/19/19 21:20 Blood Aerobic Blood Culture - Preliminary Gram negative bacilli 02/19/19 21:20 Blood Anaerobic Blood Culture - Preliminary Gram negative bacilli
[2019-02-22] MEDS: ACETAMINOPHEN 325 MG TAB PO PRN ×2 (03:55→21:01)
[2019-02-22] MEDS: PIPERACILLIN/TAZOBACTAM 4.5 GM in DEXTROSE 5% 100 ML IV SCH (05:58)
[2019-02-22] MEDS: LEVOTHYROXINE SODIUM 112 MCG TABLET PO SCH (05:59)
[2019-02-22 06:01] LABS: Hematocrit (blood only) 37.2 % (37-47); Hemoglobin 11.5 g/dL (12.0-16.0); Mean Corpuscular Hgb Conc 30.9 g/dL (32-36); Mean Corpuscular Volume 91.6 fL (80-100); Mean Platelet Volume 10.7 fL (7.4-10.4); Platelet Count 220 K/uL (130-400); RDW Coefficient of Variation 16.9 % (11.5-14.5); RDW Standard Deviation 56.7 fL (36.4-46.3); Red Blood Count 4.06 M/uL (4.2-5.4); White Blood Count 10.25 K/uL (4.8-10.8)
[2019-02-22 06:37] LABS: BUN Creatinine Ratio 32.5 (10-20); Calcium 8.8 mg/dl (8.5-10.1); Creatinine Clr Calc Pharmacy 81.4 ml/min; Est GFR (African American) 67.8; Est GFR (Non-African American) 58.5; Potassium 3.9 mmol/L (3.5-5.1)
[2019-02-22] MEDS: ALBUT/IPRATROP 3MG/0.5MG NEB 3 ML VIAL NEB SCH ×4 (07:23→19:25)
[2019-02-22] MEDS: METOPROLOL TARTRATE 25 MG TAB PO SCH ×2 (08:50→20:41)
[2019-02-22] MEDS: GEMFIBROZIL 600 MG TAB PO SCH ×2 (08:50→20:45)
[2019-02-22] MEDS: dilTIAZem ER 180 MG CAPCR PO SCH (08:50)
[2019-02-22] MEDS: ALLOPURINOL 100 MG TAB PO SCH ×2 (08:51→20:46)
[2019-02-22] MEDS: DABIGATRAN ETEXILATE 75 MG CAP PO SCH ×2 (08:51→20:41)
[2019-02-22] MEDS: BuPROPion SR 150 MG TABCR PO SCH ×2 (08:51→20:45)
[2019-02-22] MEDS: VALSARTAN 80 MG TAB PO SCH (08:51)
[2019-02-22] MEDS: ASPIRIN 81 MG ECTAB PO SCH (08:51)
[2019-02-22] MEDS: GABAPENTIN 600 MG TAB PO SCH ×2 (08:51→20:40)
[2019-02-22] MEDS: FLUTICASONE PROPIONATE NA SPR 16 GM BTL SCH (08:52)
[2019-02-22] MEDS: INSULIN ASPART 100 UNITS/ML 3 ML PEN SC SCH ×4 (08:53→20:39)
[2019-02-22] MEDS: INSULIN GLARGINE SOLOSTAR 100 UNITS/ML 3 ML PEN SQ SCH ×2 (08:54→20:42)
[2019-02-22] MEDS: DICLOFENAC SOD 1% GEL 100 GM TUBE EXT SCH ×4 (08:55→20:41)
[2019-02-22] MEDS: cefTRIAXone SODIUM 2,000 MG in DEXTROSE 5% 50 ML IV SCH (12:50)
--- NOTE | 2019-02-22 18:48 | Hospitalist Progress Note ---
Date of Service February 22, 2019 Assessment & Plan (1) Bacteremia: E. coli bacteremia Blood Culture:E.coli Continue Vancomycin and Zosyn>>>transitioned to ceftriaxone 2 g IV daily Appreciate ID input Repeat blood cultures: pending (2) Cellulitis of left lower extremity: Continue Ceftriaxone ID on board Continue wound Care (3) Diabetic ulcer of left great toe: Management as above (4) T2DM (type 2 diabetes mellitus): A1C: 7.0 Continue ISS, Glargine (5) HTN (hypertension): controlled Continue current medication (6) COPD (chronic obstructive pulmonary disease): Continue Nebs (7) Diabetic neuropathy: (8) CKD (chronic kidney disease) stage 3, GFR 30-59 ml/min: Cr near baseline Avoid nephrotoxic agents as able Monitor renal function (9) Morbid obesity: BMI:58 (10) Atrial fibrillation: Continue Pradaxa, Diltiazem, metoprolol (11) DVT prophylaxis: Pradaxa Code Status Full Code Disposition: PT/OT prior to discharge Subjective Patient is seen and examined at bedside Continues to complain of intermittent left leg pain Saturating well on room Repeat blood cultures pending No new complaints Denies any chest pain, shortness of breath, dizziness, nausea, abdominal pain Review of Systems Review of Systems: All systems reviewed & are unremarkable except as noted in HPI & below Physical Exam Physical Exam: Physical Exam: Vitals signs as noted above General Appearance:Obese, no apparent distress Head: normocephalic, Atraumatic Eyes: normal inspection, EOMI Neck: supple, Trachea midline Respiratory/Chest: Normal breath sounds, CTA Cardiovascular: S1, S2, No murmur Abdomen/GI:Soft, Non tender, Bowel sounds present Extremities/Musculoskelatal:normal inspection, Left leg erythematous, + Foot ulcer Neurologic/Psych:AAOX3, grossly no focal neurological deficits Skin: normal color, warm Results & Data Vital Signs (Past 12 Hours) Vital Signs Temp Pulse Resp BP BP Pulse Ox 02/22/19 15:10 87 18 96 02/22/19 14:57 36.7 C 62 20 109/68 92 02/22/19 14:17 95 02/22/19 10:37 87 16 93 02/22/19 07:35 36.8 C 80 20 130/77 96 Laboratory Results Short CBC 02/22/19 Range/Units 05:36 WBC 10.25 (4.8-10.8) K/uL Hgb 11.5 L (12.0-16.0) g/dL Hct 37.2 (37-47) % Plt Count 220 (130-400) K/uL [facility] 02/22/19 05:36 Sodium 140 Potassium 3.9 Chloride 109 H Carbon Dioxide 25 BUN 33 H Creatinine 1.02 Glucose 106 H Calcium 8.8 (1) T2DM (type 2 diabetes mellitus) Diabetes mellitus senior care insulin use: with extermination supervisor use Diabetes mellitus complication status: with skin complications Diabetes mellitus complication detail: with other skin complication Qualified Code(s): E11.628 - Type 2 diabetes mellitus with other skin complications; Z79.4 - meterman (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
--- NOTE | 2019-02-22 21:20 | Infectious Disease Progress Nt ---
Date of Service February 22, 2019 Assessment & Plan (1) Gram negative sepsis: Patient with E. coli bacteremia in the setting of left leg cellulitis and diabetic toe ulcer. Patient changed to IV ceftriaxone. Would obtain follow-up blood cultures to ensure clearance. Will follow. (2) Cellulitis of left lower extremity: (3) Diabetic ulcer of left great toe: Subjective Continues to complain of intermittent left leg pain Saturating well on room Repeat blood cultures pending No new complaints Denies any chest pain, shortness of breath, dizziness, nausea, abdominal pain. Blood cultures growing sensitive E. coli. Review of Systems Review of Systems: All systems reviewed & are unremarkable except as noted in HPI & below Physical Exam Constitutional: WD/WN, vitals as above well developed, well nourished and + morbidly obese; no acute distress Eyes: PERRL, conjunctivae normal, anicteric sclerae ENMT: external ear and nose normal, oropharynx normal Neck: trachea midline, no thyromegaly normal visual inspection Thyroid: thyroid nontender Respiratory: normal respiratory effort, lungs clear to auscultation normal percussion; no respiratory distress Cardiovascular: RRR, no murmur, no edema Gastrointestinal (Abdomen): normal bowel sounds, soft, nontender, no hepatosplenomegaly Percussion/Palpation: no abdominal mass Musculoskeletal: no cyanosis or clubbing, extremities motor strength 5/5 Head/Neck/Chest: normocephalic and head atraumatic Skin: normal turgor, + ulcer (Left great toe) and + erythema (Left leg and thigh); no rashes Neurologic: moves all extremities and awake; no focal motor deficits Psychiatric: A+Ox3, euthymic affect Lymphatic: no cervical or axillary lymphadenopathy no inguinal lymphadenopathy Results & Data Vital Signs (Past 12 Hours) Vital Signs Temp Pulse Resp BP Pulse Ox 02/22/19 19:28 88 20 94 02/22/19 15:10 87 18 96 02/22/19 14:57 36.7 C 62 20 109/68 92 02/22/19 14:17 95 02/22/19 10:37 87 16 93 Laboratory Results Short CBC 02/22/19 Range/Units 05:36 WBC 10.25 (4.8-10.8) K/uL Hgb 11.5 L (12.0-16.0) g/dL Hct 37.2 (37-47) % Plt Count 220 (130-400) K/uL BMP 02/22/19 05:36 Sodium 140 Potassium 3.9 Chloride 109 H Carbon Dioxide 25 BUN 33 H Creatinine 1.02 Glucose 106 H Calcium 8.8 Diagnostic Findings Microbiology 02/20/19 13:40 Urine,Clean Catch Urine Culture - Preliminary Yeast not Winnie albicans 02/19/19 21:20 Blood Aerobic Blood Culture - Final Escherichia coli 02/19/19 21:20 Blood Anaerobic Blood Culture - Final Escherichia coli 02/19/19 22:11 Blood Aerobic Blood Culture - Final Escherichia coli 02/19/19 22:11 Blood Anaerobic Blood Culture - Preliminary No growth in Anaerobic bottle after 48 hours.
[2019-02-23] MEDS: ACETAMINOPHEN 325 MG TAB PO PRN ×4 (00:48→23:56)
[2019-02-23 05:33] LABS: Hematocrit (blood only) 36.6 % (37-47); Hemoglobin 11.7 g/dL (12.0-16.0); Mean Platelet Volume 10.8 fL (7.4-10.4); Platelet Count 201 K/uL (130-400); RDW Coefficient of Variation 16.9 % (11.5-14.5); RDW Standard Deviation 56.5 fL (36.4-46.3); Red Blood Count 4.02 M/uL (4.2-5.4); White Blood Count 8.64 K/uL (4.8-10.8)
[2019-02-23] MEDS: LEVOTHYROXINE SODIUM 112 MCG TABLET PO SCH (06:01)
[2019-02-23 06:03] LABS: Creatinine Clr Calc Pharmacy 93.3 ml/min; Est GFR (African American) 79.9
[2019-02-23] MEDS: ALBUT/IPRATROP 3MG/0.5MG NEB 3 ML VIAL NEB SCH ×4 (06:52→19:05)
[2019-02-23] MEDS: BuPROPion SR 150 MG TABCR PO SCH ×2 (08:58→21:15)
[2019-02-23] MEDS: METOPROLOL TARTRATE 25 MG TAB PO SCH ×2 (08:58→21:12)
[2019-02-23] MEDS: ALLOPURINOL 100 MG TAB PO SCH ×2 (08:59→21:16)
[2019-02-23] MEDS: GABAPENTIN 600 MG TAB PO SCH ×2 (08:59→21:13)
[2019-02-23] MEDS: dilTIAZem ER 180 MG CAPCR PO SCH (08:59)
[2019-02-23] MEDS: FLUTICASONE PROPIONATE NA SPR 16 GM BTL SCH (08:59)
[2019-02-23] MEDS: ASPIRIN 81 MG ECTAB PO SCH (08:59)
[2019-02-23] MEDS: GEMFIBROZIL 600 MG TAB PO SCH ×2 (08:59→21:12)
[2019-02-23] MEDS: DABIGATRAN ETEXILATE 75 MG CAP PO SCH ×2 (08:59→21:13)
[2019-02-23] MEDS: VALSARTAN 80 MG TAB PO SCH (08:59)
[2019-02-23] MEDS: DICLOFENAC SOD 1% GEL 100 GM TUBE EXT SCH ×4 (08:59→21:17)
[2019-02-23] MEDS: INSULIN GLARGINE SOLOSTAR 100 UNITS/ML 3 ML PEN SQ SCH ×2 (09:03→21:03)
[2019-02-23] MEDS: INSULIN ASPART 100 UNITS/ML 3 ML PEN SC SCH ×4 (09:04→21:05)
[2019-02-23] MEDS: hydroCHLOROthiazide 25 MG TAB PO SCH (09:05)
[2019-02-23] MEDS: cefTRIAXone SODIUM 2,000 MG in DEXTROSE 5% 50 ML IV SCH (12:18)
--- NOTE | 2019-02-23 14:05 | Infectious Disease Progress Nt ---
Date of Service February 23, 2019 Assessment & Plan (1) Gram negative sepsis: Patient with E. coli bacteremia in the setting of left leg cellulitis and diabetic toe ulcer. Patient changed to IV ceftriaxone. Await follow-up blood cultures to ensure clearance. Hopefully will be able to transition to oral antibiotics in the near future. Will follow. (2) Cellulitis of left lower extremity: (3) Diabetic ulcer of left great toe: Subjective Seen in follow-up for lower extremity cellulitis Leg pain/swelling/redness is improving No other complaints Repeat blood cultures--No growth to date Denies any chest pain, shortness of breath, dizziness, nausea, abdominal pain. Remains afebrile. Review of Systems Review of Systems: All systems reviewed & are unremarkable except as noted in HPI & below Physical Exam Constitutional: WD/WN, vitals as above well developed, well nourished and + morbidly obese; no acute distress Eyes: PERRL, conjunctivae normal, anicteric sclerae ENMT: external ear and nose normal, oropharynx normal Neck: trachea midline, no thyromegaly normal visual inspection Thyroid: thyroid nontender Respiratory: normal respiratory effort, lungs clear to auscultation normal percussion; no respiratory distress Cardiovascular: RRR, no murmur, no edema Gastrointestinal (Abdomen): normal bowel sounds, soft, nontender, no hepatosplenomegaly Percussion/Palpation: no abdominal mass Musculoskeletal: no cyanosis or clubbing, extremities motor strength 5/5 Head/Neck/Chest: normocephalic and head atraumatic Skin: normal turgor, + ulcer (Left great toe) and + erythema (Left leg and thigh); no rashes Neurologic: moves all extremities and awake; no focal motor deficits Psychiatric: A+Ox3, euthymic affect Lymphatic: no cervical or axillary lymphadenopathy no inguinal lymphade nopathy Results & Data Vital Signs (Past 12 Hours) Vital Signs Temp Pulse Resp BP Pulse Ox 02/23/19 11:07 78 18 97 02/23/19 06:56 36.6 C 78 20 155/74 H 92 02/23/19 06:52 82 20 95 Laboratory Results Short CBC 02/23/19 Range/Units 05:18 WBC 8.64 (4.8-10.8) K/uL Hgb 11.7 L (12.0-16.0) g/dL Hct 36.6 L (37-47) % Plt Count 201 (130-400) K/uL BMP 02/23/19 05:18 Creatinine 0.89 Diagnostic Findings Microbiology 02/20/19 13:40 Urine,Clean Catch Urine Culture - Final Yeast not Winnie albicans 02/22/19 05:46 Blood Aerobic Blood Culture - Preliminary No growth in Aerobic bottle after 24 hours. 02/22/19 05:46 Blood Anaerobic Blood Culture - Preliminary No growth in Anaerobic bottle after 24 hours. 02/22/19 05:36 Blood Aerobic Blood Culture - Preliminary No growth in Aerobic bottle after 24 hours. 02/22/19 05:36 Blood Anaerobic Blood Culture - Preliminary No growth in Anaerobic bottle after 24 hours. 02/19/19 21:20 Blood Aerobic Blood Culture - Final Escherichia coli 02/19/19 21:20 Blood Anaerobic Blood Culture - Final Escherichia coli 02/19/19 22:11 Blood Aerobic Blood Culture - Final Escherichia coli 02/19/19 22:11 Blood Anaerobic Blood Culture - Preliminary No growth in Anaerobic bottle after 48 hours.
--- NOTE | 2019-02-23 16:18 | Hospitalist Progress Note ---
Date of Service February 23, 2019 Assessment & Plan (1) Bacteremia: E. coli bacteremia Blood Culture:E.coli Continue Vancomycin and Zosyn>>>transitioned to ceftriaxone 2 g IV daily Appreciate ID input Repeat blood cultures: No growth to date (2) Cellulitis of left lower extremity: Continue Ceftriaxone Venous Doppler:No DVT within the left lower extremity. ID on board Continue wound Care (3) Diabetic ulcer of left great toe: Management as above (4) T2DM (type 2 diabetes mellitus): A1C: 7.0 Continue ISS, Glargine (5) HTN (hypertension): controlled Continue current medication (6) COPD (chronic obstructive pulmonary disease): Continue Nebs (7) Diabetic neuropathy: (8) CKD (chronic kidney disease) stage 3, GFR 30-59 ml/min: Cr near baseline Avoid nephrotoxic agents as able Monitor renal function (9) Morbid obesity: BMI:58 (10) Atrial fibrillation: Continue Pradaxa, Diltiazem, metoprolol (11) DVT prophylaxis: Pradaxa Code Status Full Code Disposition: Needs Rehab placement Subjective Patient is seen and examined at bedside Leg pain is better today No new complaints Saturating 96% on room air Repeat blood cultures--No growth to date Denies any chest pain, shortness of breath, dizziness, nausea, abdominal pain Review of Systems Review of Systems: All systems reviewed & are unremarkable except as noted in HPI & below Physical Exam Physical Exam: Physical Exam: Vitals signs as noted above General Appearance:Obese, no apparent distress Head: normocephalic, Atraumatic Eyes: normal inspection, EOMI Neck: supple, Trachea midline Respiratory/Chest: Normal breath sounds, CTA Cardiovascular: S1, S2, No murmur Abdomen/GI:Soft, Non tender, Bowel sounds present Extremities/Musculoskelatal:normal inspection, Left leg erythematous, + Foot ulcer Neurologic/Psych:AAOX3, grossly no focal neurological deficits Skin: normal color, warm Results & Data Vital Signs (Past 12 Hours) Vital Signs Temp Pulse Resp BP Pulse Ox 02/23/19 15:15 75 18 96 02/23/19 15:04 64 18 118/75 97 02/23/19 14:25 96 02/23/19 11:07 78 18 97 02/23/19 06:56 36.6 C 78 20 155/74 H 92 02/23/19 06:52 82 20 95 Laboratory Results Short CBC 05/24/19 Range/Units 05:18 WBC 8.64 (4.8-10.8) K/uL Hgb 11.7 L (12.0-16.0) g/dL Hct 36.6 L (37-47) % Plt Count 201 (130-400) K/uL BMP 02/23/19 05:18 Creatinine 0.89 (1) T2DM (type 2 diabetes mellitus) Diabetes mellitus intermodal dispatcher insulin use: with intermodal dispatcher use Diabetes mellitus complication status: with skin complications Diabetes mellitus complication detail: with other skin complication Qualified Code(s): E11.628 - Type 2 diabetes mellitus with other skin complications; Z79.4 - terminal manager (current) use of insulin (2) HTN (hypertension) Hypertension type: essential hypertension Qualified Code(s): I10 - Essential (primary) hypertension (3) COPD (chronic obstructive pulmonary disease) COPD type: unspecified COPD Qualified Code(s): J44.9 - Chronic obstructive p ulmonary disease, unspecified (4) Atrial fibrillation Atrial fibrillation type: chronic Qualified Code(s): I48.2 - Chronic atrial fibrillation
[2019-02-24] MEDS: BENZONATATE 100 MG CAPSULE PO PRN ×3 (04:03→20:25)
[2019-02-24] MEDS: ACETAMINOPHEN 325 MG TAB PO PRN ×2 (04:04→09:42)
[2019-02-24] MEDS: LEVOTHYROXINE SODIUM 112 MCG TABLET PO SCH (06:11)
[2019-02-24] MEDS: ALBUT/IPRATROP 3MG/0.5MG NEB 3 ML VIAL NEB SCH ×4 (07:56→18:44)
[2019-02-24] MEDS: INSULIN ASPART 100 UNITS/ML 3 ML PEN SC SCH ×4 (09:37→20:27)
[2019-02-24] MEDS: VALSARTAN 80 MG TAB PO SCH (09:46)
[2019-02-24] MEDS: ASPIRIN 81 MG ECTAB PO SCH (09:48)
[2019-02-24] MEDS: hydroCHLOROthiazide 25 MG TAB PO SCH (09:48)
[2019-02-24] MEDS: GEMFIBROZIL 600 MG TAB PO SCH ×2 (09:49→20:27)
[2019-02-24] MEDS: GABAPENTIN 600 MG TAB PO SCH ×2 (09:49→20:26)
[2019-02-24] MEDS: METOPROLOL TARTRATE 25 MG TAB PO SCH ×2 (09:49→20:31)
[2019-02-24] MEDS: DABIGATRAN ETEXILATE 75 MG CAP PO SCH ×2 (09:50→20:28)
[2019-02-24] MEDS: dilTIAZem ER 180 MG CAPCR PO SCH (09:52)
[2019-02-24] MEDS: ALLOPURINOL 100 MG TAB PO SCH ×2 (09:53→20:29)
[2019-02-24] MEDS: BuPROPion SR 150 MG TABCR PO SCH ×2 (09:53→20:29)
[2019-02-24] MEDS: INSULIN GLARGINE SOLOSTAR 100 UNITS/ML 3 ML PEN SQ SCH ×2 (09:54→20:25)
[2019-02-24] MEDS: DICLOFENAC SOD 1% GEL 100 GM TUBE EXT SCH ×4 (09:55→20:29)
[2019-02-24] MEDS: FLUTICASONE PROPIONATE NA SPR 16 GM BTL SCH (09:58)
[2019-02-24] MEDS: DOXYCYCLINE HYCLATE 100 MG CAP PO SCH ×2 (12:33→20:28)
[2019-02-24] MEDS: cefTRIAXone SODIUM 2,000 MG in DEXTROSE 5% 50 ML IV SCH (12:53)
--- NOTE | 2019-02-24 15:14 | Hospitalist Progress Note ---
Date of Service February 24, 2019 Assessment & Plan (1) Bacteremia: E. coli bacteremia Blood Culture:E.coli Continue Vancomycin and Zosyn>>>transitioned to ceftriaxone 2 g IV daily Appreciate ID input Repeat blood cultures: No growth to date Possible Bronchitis: Flu screen is negative Start on Doxycycline No signs of sepsis Will consider repeat chest x-ray if no improvement (2) Cellulitis of left lower extremity: Continue Ceftriaxone Venous Doppler:No DVT within the left lower extremity. ID on board Continue wound Care (3) Diabetic ulcer of left great toe: Management as above (4) T2DM (type 2 diabetes mellitus): A1C: 7.0 Continue ISS, Glargine (5) HTN (hypertension): controlled Continue current medication (6) COPD (chronic obstructive pulmonary disease): Continue Nebs (7) Diabetic neuropathy: (8) CKD (chronic kidney disease) stage 3, GFR 30-59 ml/min: Cr near baseline Avoid nephrotoxic agents as able Monitor renal function (9) Morbid obesity: BMI:58 (10) Atrial fibrillation: Continue Pradaxa, Diltiazem, metoprolol (11) DVT prophylaxis: Pradaxa Code Status Full Code Disposition: Needs Rehab placement Case management on board Subjective Patient is seen and examined at bedside States having cough with yellowish-green expectoration Leg pain continues to improve No other complaints Repeat blood cultures--No growth to date Denies any chest pain, shortness of breath, dizziness, nausea, abdominal pain Review of Systems Review of Systems: All systems reviewed & are unremarkable except as noted in HPI & below Physical Exam Physical Exam: Physical Exam: Vitals signs as noted above General Appearance:Obese, no apparent distress Head: normocephalic, Atraumatic Eyes: normal inspection, EOMI Neck: supple, Trachea midline Respiratory/Chest: Normal breath sounds, CTA Cardiovascular: S1, S2, No murmur Abdomen/GI:Soft, Non tender, Bowel sounds present Extremities/Musculoskelatal:normal inspection, Left leg erythematous, + Foot ulcer Neurologic/Psych:AAOX3, grossly no focal neurological deficits Skin: normal color, warm Results & Data Vital Signs (Past 12 Hours) Vital Signs Temp Pulse Pulse Resp BP BP Pulse Ox 02/24/19 15:09 75 18 98 02/24/19 11:04 81 18 98 02/24/19 09:44 83 125/85 02/24/19 07:56 87 18 92 05/25/19 07:28 36.6 C 77 20 80/49 L 91 (1) T2DM (type 2 diabetes mellitus) Diabetes mellitus [facility] insulin use: with [facility] Diabetes mellitus complication status: with skin complications Diabetes mellitus complication detail: with other skin complication Qualified Code(s): E11.628 - Type 2 diabetes mellitus with other skin complications; Z79.4 - correction (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
[2019-02-25] MEDS: ACETAMINOPHEN 325 MG TAB PO PRN ×2 (00:31→13:41)
[2019-02-25] MEDS: LEVOTHYROXINE SODIUM 112 MCG TABLET PO SCH (06:11)
[2019-02-25] MEDS: ALBUT/IPRATROP 3MG/0.5MG NEB 3 ML VIAL NEB SCH ×4 (07:05→19:19)
[2019-02-25] MEDS: dilTIAZem ER 180 MG CAPCR PO SCH (08:55)
[2019-02-25] MEDS: METOPROLOL TARTRATE 25 MG TAB PO SCH ×2 (08:55→21:01)
[2019-02-25] MEDS: ASPIRIN 81 MG ECTAB PO SCH (08:55)
[2019-02-25] MEDS: hydroCHLOROthiazide 25 MG TAB PO SCH (08:55)
[2019-02-25] MEDS: GEMFIBROZIL 600 MG TAB PO SCH ×2 (08:55→21:01)
[2019-02-25] MEDS: DOXYCYCLINE HYCLATE 100 MG CAP PO SCH ×2 (08:55→21:02)
[2019-02-25] MEDS: ALLOPURINOL 100 MG TAB PO SCH ×2 (08:56→21:01)
[2019-02-25] MEDS: GABAPENTIN 600 MG TAB PO SCH ×2 (08:56→21:01)
[2019-02-25] MEDS: VALSARTAN 80 MG TAB PO SCH (08:56)
[2019-02-25] MEDS: DABIGATRAN ETEXILATE 75 MG CAP PO SCH ×2 (08:56→21:02)
[2019-02-25] MEDS: FLUTICASONE PROPIONATE NA SPR 16 GM BTL SCH (08:56)
[2019-02-25] MEDS: BuPROPion SR 150 MG TABCR PO SCH ×2 (08:56→21:01)
[2019-02-25] MEDS: INSULIN GLARGINE SOLOSTAR 100 UNITS/ML 3 ML PEN SQ SCH ×2 (08:57→21:06)
[2019-02-25] MEDS: DICLOFENAC SOD 1% GEL 100 GM TUBE EXT SCH ×5 (08:57→21:05)
[2019-02-25] MEDS: INSULIN ASPART 100 UNITS/ML 3 ML PEN SC SCH ×4 (08:58→21:06)
[2019-02-25] MEDS: cefTRIAXone SODIUM 2,000 MG in DEXTROSE 5% 50 ML IV SCH (12:56)
[2019-02-25] MEDS: BENZONATATE 100 MG CAPSULE PO PRN (13:42)
--- NOTE | 2019-02-25 16:50 | Hospitalist Progress Note ---
Date of Service February 25, 2019 Assessment & Plan (1) Bacteremia: E. coli bacteremia Blood Culture:E.coli Continue Vancomycin and Zosyn>>>transitioned to ceftriaxone 2 g IV daily Appreciate ID input Repeat blood cultures: No growth to date Possible Bronchitis: Flu screen is negative Continue Doxycycline Day #2/5 No signs of sepsis Cough improving (2) Cellulitis of left lower extremity: Continue Ceftriaxone Venous Doppler:No DVT within the left lower extremity. ID on board Continue wound Care (3) Diabetic ulcer of left great toe: Management as above (4) T2DM (type 2 diabetes mellitus): A1C: 7.0 Continue ISS, Glargine (5) HTN (hypertension): controlled Continue current medication (6) COPD (chronic obstructive pulmonary disease): Continue Nebs (7) Diabetic neuropathy: (8) CKD (chronic kidney disease) stage 3, GFR 30-59 ml/min: Cr near baseline Avoid nephrotoxic agents as able Monitor renal function (9) Morbid obesity: BMI:58 (10) Atrial fibrillation: Continue Pradaxa, Diltiazem, metoprolol (11) DVT prophylaxis: Pradaxa Code Status Full Code Disposition: May need Rehab placement for IV Abx therapy Case management on board Subjective Patient is seen and examined at bedside Cough is improving Leg pain/swelling/redness is improving No other complaints Repeat blood cultures--No growth to date Denies any chest pain, shortness of breath, dizziness, nausea, abdominal pain Review of Systems Review of Systems: All systems reviewed & are unremarkable except as noted in HPI & below Physical Exam Physical Exam: Physical Exam: Vitals signs as noted above General Appearance:Obese, no apparent distress Head: normocephalic, Atraumatic Eyes: normal inspection, EOMI Neck: supple, Trachea midline Respiratory/Chest: Normal breath sounds, CTA Cardiovascular: S1, S2, No murmur Abdomen/GI:Soft, Non tender, Bowel sounds present Extremities/Musculoskelatal:normal inspection, Left leg erythematous, + Foot ulcer Neurologic/Psych:AAOX3, grossly no focal neurological deficits Skin: normal color, warm Results & Data Vital Signs (Past 12 Hours) Vital Signs Temp Pulse Pulse Resp BP Pulse Ox 02/25/19 15:03 36.3 C L 72 20 121/73 95 02/25/19 14:32 79 18 95 02/25/19 11:20 65 20 97 02/25/19 07:05 70 18 93 02/25/19 07:00 36.5 C 72 20 140/83 90 (1) T2DM (type 2 diabetes mellitus) Diabetes mellitus computer terminal operator insulin use: with computer terminal operator use Diabetes mellitus complication status: with skin complications Diabetes mellitus complication detail: with other skin complication Qualified Code(s): E11.628 - Type 2 diabetes mellitus with other skin complications; Z79.4 - termite inspector (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
--- NOTE | 2019-02-25 19:43 | Infectious Disease Progress Nt ---
Date of Service February 25, 2019 Assessment & Plan (1) Gram negative sepsis: Patient with E. coli bacteremia in the setting of left leg cellulitis and diabetic toe ulcer. Patient changed to IV ceftriaxone. Follow-up blood cultures remain no growth. Will discuss transition to oral antibiotics. Will follow. (2) Cellulitis of left lower extremity: (3) Diabetic ulcer of left great toe: Subjective Seen in follow-up for lower extremity cellulitis. Cough is improving Leg pain/swelling/redness is improving No other complaints Repeat blood cultures--No growth to date Denies any chest pain, shortness of breath, dizziness, nausea, abdominal pain. Remains afebrile. Review of Systems Review of Systems: All systems reviewed & are unremarkable except as noted in HPI & below Physical Exam Constitutional: WD/WN, vitals as above well developed, well nourished and + morbidly obese; no acute distress Eyes: PERRL, conjunctivae normal, anicteric sclerae ENMT: external ear and nose normal, oropharynx normal Neck: trachea midline, no thyromegaly normal visual inspection Thyroid: thyroid nontender Respiratory: normal respiratory effort, lungs clear to auscultation normal percussion; no respiratory distress Cardiovascular: RRR, no murmur, no edema Gastrointestinal (Abdomen): normal bowel sounds, soft, nontender, no hepatosplenomegaly Percussion/Palpation: no abdominal mass Musculoskeletal: no cyanosis or clubbing, extremities motor strength 5/5 Head/Neck/Chest: normocephalic and head atraumatic Skin: normal turgor, + ulcer (Left great toe) and + erythema (Left leg and thigh); no rashes Neurologic: moves all extremities and awake; no focal motor deficits Psychiatric: A+Ox3, euthymic affect Lymphatic: no cervical or axillary lymphadenopathy no inguinal lymphadenopathy Results & Data Vital Signs (Past 12 Hours) Vital Signs Temp Pulse Pulse Resp BP Pulse Ox 02/25/19 19:21 75 16 94 02/25/19 15:03 36.3 C L 72 20 121/73 95 02/25/19 14:32 79 18 95 02/25/19 11:20 65 20 97 Laboratory Results Laboratory Results - last 48 hr 02/23/19 02/24/19 02/24/19 19:50 07:50 11:47 POC Glucose 150 H 84 129 H 05/02/24/19 02/25/19 16:50 20:01 08:08 POC Glucose 91 146 H 71 02/25/19 02/25/19 11:47 16:43 POC Glucose 70 80 Diagnostic Findings Microbiology 02/24/19 20:00 Sputum, Expectorated Gram Stain - Final 02/24/19 20:00 Sputum, Expectorated Sputum Culture - Preliminary Light normal alirio present, final report to follow. 02/19/19 22:11 Blood Aerobic Blood Culture - Final Escherichia coli 02/19/19 22:11 Blood Anaerobic Blood Culture - Final No growth in Anaerobic bottle after 5 days. 02/22/19 05:36 Blood Aerobic Blood Culture - Preliminary No growth in Aerobic bottle after 48 hours. 02/22/19 05:36 Blood Anaerobic Blood Culture - Preliminary No growth in Anaerobic bottle after 48 hours. 02/22/19 05:46 Blood Aerobic Blood Culture - Preliminary No growth in Aerobic bottle after 48 hours. 02/22/19 05:46 Blood Anaerobic Blood Culture - Preliminary No growth in Anaerobic bottle after 48 hours. 02/20/19 13:40 Urine,Clean Catch Urine Culture - Final Yeast not Winnie albicans 02/19/19 21:20 Blood Aerobic Blood Culture - Final Escherichia coli 02/19/19 21:20 Blood Anaerobic Blood Culture - Final Escherichia coli
[2019-02-26] MEDS: ACETAMINOPHEN 325 MG TAB PO PRN ×3 (01:12→17:50)
[2019-02-26] MEDS: BENZONATATE 100 MG CAPSULE PO PRN ×2 (01:12→08:11)
[2019-02-26] MEDS: LEVOTHYROXINE SODIUM 112 MCG TABLET PO SCH (06:32)
[2019-02-26] MEDS: ALBUT/IPRATROP 3MG/0.5MG NEB 3 ML VIAL NEB SCH (06:53)
[2019-02-26] MEDS: ALLOPURINOL 100 MG TAB PO SCH ×2 (07:53→20:40)
[2019-02-26] MEDS: DABIGATRAN ETEXILATE 75 MG CAP PO SCH ×2 (07:53→20:40)
[2019-02-26] MEDS: hydroCHLOROthiazide 25 MG TAB PO SCH (07:53)
[2019-02-26] MEDS: ASPIRIN 81 MG ECTAB PO SCH (07:53)
[2019-02-26] MEDS: DOXYCYCLINE HYCLATE 100 MG CAP PO SCH ×2 (07:53→20:40)
[2019-02-26] MEDS: BuPROPion SR 150 MG TABCR PO SCH ×2 (07:53→20:40)
[2019-02-26] MEDS: GABAPENTIN 600 MG TAB PO SCH ×2 (07:54→20:40)
[2019-02-26] MEDS: dilTIAZem ER 180 MG CAPCR PO SCH (07:54)
[2019-02-26] MEDS: METOPROLOL TARTRATE 25 MG TAB PO SCH ×2 (07:54→20:40)
[2019-02-26] MEDS: GEMFIBROZIL 600 MG TAB PO SCH ×2 (07:54→20:41)
[2019-02-26] MEDS: VALSARTAN 80 MG TAB PO SCH (07:54)
[2019-02-26] MEDS: FLUTICASONE PROPIONATE NA SPR 16 GM BTL SCH (07:55)
[2019-02-26] MEDS: DICLOFENAC SOD 1% GEL 100 GM TUBE EXT SCH ×4 (07:55→20:41)
[2019-02-26] MEDS: INSULIN GLARGINE SOLOSTAR 100 UNITS/ML 3 ML PEN SQ SCH ×2 (08:08→20:42)
[2019-02-26] MEDS: INSULIN ASPART 100 UNITS/ML 3 ML PEN SC SCH ×4 (08:09→20:41)
[2019-02-26] MEDS ORDERED: COUGH DROP (SUGAR FREE) LOZ 24 LOZ/1 BOX BUCCAL ONE (08:10)
[2019-02-26] MEDS ORDERED: COUGH DROP (SUGAR FREE) LOZ 24 LOZ/1 BOX BUCCAL STA (08:14)
[2019-02-26] MEDS: cefTRIAXone SODIUM 2,000 MG in DEXTROSE 5% 50 ML IV SCH (12:25)
--- NOTE | 2019-02-26 14:14 | Hospitalist Progress Note ---
Date of Service February 26, 2019 Assessment & Plan (1) Bacteremia: E. coli bacteremia Blood Culture:E.coli Continue Vancomycin and Zosyn>>>transitioned to ceftriaxone 2 g IV daily Appreciate ID input Repeat blood cultures: No growth to date Plan to transition to Omnicef for 2 weeks upon discharge as per ID Possible Bronchitis: Flu screen is negative Continue Doxycycline Day #3/5 No signs of sepsis Cough improving (2) Cellulitis of left lower extremity: Continue Ceftriaxone Venous Doppler:No DVT within the left lower extremity. ID on board Continue wound Care (3) Diabetic ulcer of left great toe: Management as above (4) T2DM (type 2 diabetes mellitus): A1C: 7.0 Continue ISS, Glargine (5) HTN (hypertension): controlled Continue current medication (6) COPD (chronic obstructive pulmonary disease): Continue Nebs (7) Diabetic neuropathy: (8) CKD (chronic kidney disease) stage 3, GFR 30-59 ml/min: Cr near baseline Avoid nephrotoxic agents as able Monitor renal function (9) Morbid obesity: BMI:58 (10) Atrial fibrillation: Continue Pradaxa, Diltiazem, metoprolol (11) DVT prophylaxis: Pradaxa Code Status Full Code Disposition: Needs follow up with wound clinic upon discharge Case management on board Subjective Patient is seen and examined at bedside Leg pain/swelling/redness continues to improve Less cough Denies any chest pain, shortness of breath, dizziness, nausea, abdominal pain. Discussed with ID today Review of Systems Review of Systems: All systems reviewed & are unremarkable except as noted in HPI & below Physical Exam Physical Exam: Physical Exam: Vitals signs as noted above General Appearance:Obese, no apparent distress Head: normocephalic, Atraumatic Eyes: normal inspection, EOMI Neck: supple, Trachea midline Respiratory/Chest: Normal breath sounds, CTA Cardiovascular: S1, S2, No murmur Abdomen/GI:Soft, Non tender, Bowel sounds present Extremities/Musculoskelatal:normal inspection, Left leg erythematous, + Foot ulcer Neurologic/Psych:AAOX3, grossly no focal neurological deficits Skin: normal color, warm Results & Data Vital Signs (Past 12 Hours) Vital Signs Temp Pulse Pulse Resp BP Pulse Ox 02/26/19 07:17 36.5 C 74 20 102/56 L 93 02/26/19 06:55 78 18 92 (1) T2DM (type 2 diabetes mellitus) 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 Diabetes mellitus complication status: with skin complications Diabetes mellitus complication detail: with other skin complication Qualified Code(s): E11.628 - Type 2 diabetes mellitus with other skin complications; Z79.4 - long-term (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
[2019-02-27] MEDS: ACETAMINOPHEN 325 MG TAB PO PRN ×2 (04:18→08:47)
[2019-02-27] MEDS: LEVOTHYROXINE SODIUM 112 MCG TABLET PO SCH (06:41)
[2019-02-27] MEDS: GEMFIBROZIL 600 MG TAB PO SCH (08:27)
[2019-02-27] MEDS: METOPROLOL TARTRATE 25 MG TAB PO SCH (08:28)
[2019-02-27] MEDS: GABAPENTIN 600 MG TAB PO SCH (08:29)
[2019-02-27] MEDS: ALLOPURINOL 100 MG TAB PO SCH (08:29)
[2019-02-27] MEDS: VALSARTAN 80 MG TAB PO SCH (08:29)
[2019-02-27] MEDS: BuPROPion SR 150 MG TABCR PO SCH (08:29)
[2019-02-27] MEDS: hydroCHLOROthiazide 25 MG TAB PO SCH (08:29)
[2019-02-27] MEDS: dilTIAZem ER 180 MG CAPCR PO SCH (08:29)
[2019-02-27] MEDS: ASPIRIN 81 MG ECTAB PO SCH (08:30)
[2019-02-27] MEDS: DABIGATRAN ETEXILATE 75 MG CAP PO SCH (08:30)
[2019-02-27] MEDS: FLUTICASONE PROPIONATE NA SPR 16 GM BTL SCH (08:30)
[2019-02-27] MEDS: DICLOFENAC SOD 1% GEL 100 GM TUBE EXT SCH ×2 (08:31→12:28)
[2019-02-27] MEDS: DOXYCYCLINE HYCLATE 100 MG CAP PO SCH (08:31)
[2019-02-27] MEDS: INSULIN ASPART 100 UNITS/ML 3 ML PEN SC SCH ×2 (08:37→12:30)
[2019-02-27] MEDS: INSULIN GLARGINE SOLOSTAR 100 UNITS/ML 3 ML PEN SQ SCH (08:38)
--- NOTE | 2019-02-27 11:39 | Hospitalist Progress Note ---
Date of Service February 27, 2019 Assessment & Plan (1) Bacteremia: E. coli bacteremia Blood Culture:E.coli Continue Vancomycin and Zosyn>>>transitioned to ceftriaxone 2 g IV daily Appreciate ID input Repeat blood cultures: No growth to date Plan to transition to Omnicef for 2 weeks upon discharge as per ID Possible Bronchitis: Flu screen is negative Continue Doxycycline Day #4/5 No signs of sepsis Cough improve (2) Cellulitis of left lower extremity: Continue Ceftriaxone Venous Doppler:No DVT within the left lower extremity. ID on board Continue wound Care (3) Diabetic ulcer of left great toe: Management as above (4) T2DM (type 2 diabetes mellitus): A1C: 7.0 Continue ISS, Glargine (5) HTN (hypertension): controlled Continue current medication (6) COPD (chronic obstructive pulmonary disease): Continue Nebs (7) Diabetic neuropathy: (8) CKD (chronic kidney disease) stage 3, GFR 30-59 ml/min: Cr near baseline Avoid nephrotoxic agents as able Monitor renal function (9) Morbid obesity: BMI:58 (10) Atrial fibrillation: Continue Pradaxa, Diltiazem, metoprolol (11) DVT prophylaxis: Pradaxa Code Status Full Code Disposition: Needs follow up with wound clinic upon discharge Case management on board Subjective Patient is seen and examined at bedside Doing much better today Leg pain/swelling/redness Improved Minimal cough No new complaints Denies any chest pain, shortness of breath, dizziness, nausea, abdominal pain. Plan to discharge home today Review of Systems Review of Systems: All systems reviewed & are unremarkable except as noted in HPI & below Physical Exam Physical Exam: Physical Exam: Vitals signs as noted above General Appearance:Obese, no apparent distress Head: normocephalic, Atraumatic Eyes: normal inspection, EOMI Neck: supple, Trachea midline Respiratory/Chest: Normal breath sounds, CTA Cardiovascular: S1, S2, No murmur Abdomen/GI:Soft, Non tender, Bowel sounds present Extremities/Musculoskelatal:normal inspection, Left leg erythematous improved , + chronic Foot ulcer Neurologic/Psych:AAOX3, grossly no focal neurological deficits Skin: normal color, warm Results & Data Vital Signs (Past 12 Hours) Vital Signs Temp Pulse Resp BP BP Pulse Ox 02/27/19 10:49 36.5 C 71 18 117/72 92 02/27/19 07:35 36.5 C 71 18 135/82 92 (1) T2DM (type 2 diabetes mellitus) Diabetes mellitus mcc insulin use: with mcc use Diabetes mellitus complication status: with skin complications Diabetes mellitus complication detail: with other skin complication Qualified Code(s): E11.628 - Type 2 diabetes mellitus with other skin complications; Z79.4 - 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
--- NOTE | 2019-02-27 11:54 | Discharge Summary ---
Date of Service February 27, 2019 Admission HPI Per Admitting Provider CHIEF COMPLAINT: Pain in the left lower extremity. HISTORY OF PRESENT ILLNESS: This is a 63-year-old female with past medical history significant for diabetes, chronic kidney disease stage III, hypothyroidism, hyperlipidemia, history of chronic gout, polycystic ovarian syndrome, COPD, moderate obstructive sleep apnea, noncompliant with CPA;, moderate persistent asthma without complication, chronic atrial fibrillation, morbid obesity, GERD, peripheral edema, benign positional vertigo, depression with anxiety, history of noncompliance with medical treatment, presents with increasing erythema and swelling of the left lower extremity. The patient has left first toe diabetic ulcer and she is following with podiatry for several weeks. Currently, she is not on any antibiotic.History of cellulitis in the same extremity in the past which was resolved. But since last weekend erythema in the left leg slowly coming back and causing a lot of pain, having difficulty ambulation, because of which she came to the ER. She uses a special boot on that leg. She is concerned the boot might have caused an infection. In the ER, she had a temp spike, white count was elevated, procalcitonin was elevated, vancomycin and Zosyn was given and we were called for admission. Currently, patient is resting comfortably. Denies any headache. No sore throat. Appetite is okay. No difficulty swallowing. No chest pain, no shortness of breath. She coughs in the morning with some whitish phlegm . No nausea, no abdominal pain. She says sugars her very well controlled, average sugars are in 120s now. Normal bowel and bladder movements. No blood in the stools, no hematuria, no burning micturition. She says her CPAP broke and she has not used it for a long time and she has an appointment with sleep doctor again. She says she will try the CPAP in the hospital. Admission Exam Per Admitting Provider PHYSICAL EXAMINATION: GENERAL: The patient is morbidly obese. VITAL SIGNS: Temperature T-max is 38.3, pulse 97, respiratory rate 19, blood pressure 100/60, oxygen 92% on room air. HEENT: No pallor, no icterus. Pupils equal, round, and reactive to light. NECK: No JVD, no neck masses, no carotid bruit. CARDIOVASCULAR: S1, S2 heard, regular rate and rhythm, no murmur, no gallop. RESPIRATORY SYSTEM: Normal AP diameter. No accessory muscle use. No wheezing, no crackles. ABDOMEN: Soft, bowel sounds present. Nontender. CENTRAL NERVOUS SYSTEM: Cranial nerves II-XII grossly intact, nonfocal. EXTREMITIES: The left lower extremity is erythematous, swollen and there is open wounds seen on the right big toe on the dorsal aspect. Principal Diagnosis Discharge Information Discharge Diagnosis Left Leg Cellulitis E.Coli Bacteremia Discharge Goals Decrease discomfort,Improve function,Improve disease control Discharge Activity Limitations Resume your previous activity Discharge Data Allergies Allergy/AdvReac Type Severity Reaction Status Date / Time GIN Inhibitors Allergy Unknown UNK Verified 02/19/19 23:56 cat dander Allergy Unknown UNK Verified 02/19/19 23:56 codeine Allergy Unknown "CODEINE Verified 02/19/19 23:56 DERIVITIVES" house dust Allergy Unknown Unknown Verified 02/19/19 23:57 hydrocodone Allergy Unknown unknown Unverified 02/19/19 23:57 meperidine Allergy Unknown _ Verified 02/19/19 23:57 morphine Allergy Unknown "MORPHINE Verified 02/19/19 23:57 DERIVATIVES", MORPHINE IS OK pioglitazone Allergy Unknown UNK Verified 02/19/19 23:57 nickel AdvReac Rash Verified 02/19/19 23:58 Cockroach Allergy Unknown UNK Uncoded 02/19/19 23:58 Unclassified Drugs Allergy Unknown "ALLERGIC Uncoded 09/28/18 16:24 TO TREES" Consultations 02/20/19 02:09 ED Decision to Admit Stat 02/20/19 02:56 Consult Case Management - Discharge Planning Routine Consult Infectious Diseases Routine Procedures Performed CT Head: Motion degraded exam without acute intracranial abnormality identified. CXR: 1. Limited exam secondary to positioning. 2. No acute process identified. Venous Doppler: No DVT within the left lower extremity. Ordered Studies 02/19/19 20:43 CT head/brain wo con Stat 02/20/19 02:56 US venous doppler LE Routine Hospital Course (1) Bacteremia: E. coli bacteremia Blood Culture:E.coli Continue Vancomycin and Zosyn>>>transitioned to ceftriaxone 2 g IV daily Appreciate ID input Repeat blood cultures: No growth to date Plan to transition to Omnicef for 2 weeks upon discharge as per ID Possible Bronchitis: Flu screen is negative Continue Doxycycline Day #4/5 No signs of sepsis Cough improve (2) Cellulitis of left lower extremity: Continue Ceftriaxone Venous Doppler:No DVT within the left lower extremity. ID on board Continue wound Care (3) Diabetic ulcer of left great toe: Management as above (4) T2DM (type 2 diabetes mellitus): A1C: 7.0 Continue ISS, Glargine (5) HTN (hypertension): controlled Continue current medication (6) COPD (chronic obstructive pulmonary disease): Continue Nebs (7) Diabetic neuropathy: (8) CKD (chronic kidney disease) stage 3, GFR 30-59 ml/min: Cr near baseline Avoid nephrotoxic agents as able Monitor renal function (9) Morbid obesity: BMI:58 (10) Atrial fibrillation: Continue Pradaxa, Diltiazem, metoprolol (11) DVT prophylaxis: Pradaxa Code Status Full Code Disposition: Needs follow up with wound clinic upon discharge Case management on board Total Time Total Time Spent Total Time Spent (In Minutes): 38 minutes Total Time Includes: Examination of the Patient, Discharge Planning, Medication Reconciliation, Communication With Other Providers and Other Discharge Plan Discharge Items Patient Disposition: Home - Home Health Services Reason For Visit: ERYTHEMA AND PAIN IN LOWER EXTREMITY Discharge Diagnosis: Left Leg Cellulitis E.Coli Bacteremia Discharge Goals: Decrease discomfort, Improve disease control and Improve function Activity: Resume your previous activity Exercise/Sports: Gradually increase as tolerated Non-emergency contact: Primary Care Provider and Specialist Call non-emergency contact if: you have any medication questions, your symptoms worsen, your pain is not controlled, your pain is worsening, your pain is unusual for you, your pain is concerning for you and you have a fever Follow-up/Referrals: Mohsen Vazquez MD [Primary Care Provider] - Diet: Carb Consistent or DM2 and Heart Healthy Addtl Provider Instructions: Follow up with your PCP on March 05, 2019 at 10:45AM Follow up with your Infectious disease at wound clinic in 2 weeks Complete the antibiotic course as prescribed Seek immediate medical attention if your symptoms reoccur or worsen Prescriptions: New doxycycline hyclate 100 mg Capsule 100 mg PO BID Qty: 4 RF: 0 cefdinir 300 mg capsule 300 mg PO BID 12 Days Qty: 24 RF: 0 Continued atorvastatin 40 mg Tablet 40 mg PO HS RF: 0 gabapentin 600 mg Tablet 600 mg PO BID RF: 0 diltiazem HCl 360 mg capsule,extended release 24 hr 360 mg PO QAM RF: 0 allopurinol 100 mg Tablet 100 mg PO BID RF: 0 aspirin [Aspirin Low Dose] 81 mg Tablet,Delayed Release (Dr/Ec) 81 mg PO QAM RF: 0 benzonatate 100 mg Capsule 100 mg PO TID PRN (Reason: Cough) RF: 0 gemfibrozil 600 mg Tablet 600 mg PO BID RF: 0 mometasone 50 mcg/actuation [place],Non-Aerosol 2 spray INTRANASAL QAM RF: 0 levothyroxine 112 mcg Tablet 112 mcg PO QAM RF: 0 insulin lispro [Humalog KwikPen Insulin] 100 unit/mL Insulin Pen 35 unit SUBCUT QAM PRN (Reason: Hyperglycemia) RF: 0 insulin lispro [Humalog KwikPen Insulin] 100 unit/mL Insulin Pen 30 unit SUBCUT .EVENING MEAL PRN (Reason: Hyperglycemia) RF: 0 insulin lispro [Humalog KwikPen Insulin] 100 unit/mL Insulin Pen 15 unit SUBCUT 1400 PRN (Reason: Hyperglycemia) RF: 0 metoprolol tartrate 25 mg Tablet 25 mg PO BID RF: 0 Lantus Solostar U-100 Insulin 100 unit/mL (3 mL) Insulin Pen 50 unit SUBCUT BID RF: 0 Pradaxa 150 mg Capsule 150 mg PO BID RF: 0 empagliflozin 25 mg Tablet 25 mg PO QAM RF: 0 ipratropium-albuterol 20-100 mcg/actuation mist 1 puff Inhalation QID RF: 0 valsartan-hydrochlorothiazide 320-25 mg tablet 1 tab PO DAILY RF: 0 albuterol sulfate 2.5 mg /3 mL (0.083 %) Solution For Nebulization 2.5 mg INHALATION Q4H PRN (Reason: Wheezing) RF: 0 bupropion HCl 150 mg tablet sustained-release 12 hr 150 mg PO BID RF: 0 diclofenac sodium 1 % gel 2 g topical QID RF: 0 Stand-Alone Forms: [facility] Discharge Orders: Discharge Order (Routine); Ordered 02/27/19 Ordered By: Erik Nielsen Admission Data Admit Date/Time: 02/20/19 01:39 Attending Provider: Erik Nielsen Admit Provider: Damián Vallejo Primary Care Provider: Mohsen Vazquez Other Providers: Damián Vallejo ; Carlos Chavez ; Sola Harris Service: Medical Other Interventions: Discharge Summary Assessment (RN) Last Done: 02/27/19 10:49 Pending Studies at Discharge: No DC Date/Time DO NOT enter until pt leaves facility: 02/27/19 14:57
[2019-02-27] MEDS: cefTRIAXone SODIUM 2,000 MG in DEXTROSE 5% 50 ML IV SCH (12:28)
--- NOTE | 2019-02-27 12:32 | Infectious Disease Progress Nt ---
Date of Service February 27, 2019 Assessment & Plan (1) Gram negative sepsis: Patient with E. coli bacteremia in the setting of left leg cellulitis and diabetic toe ulcer. Patient improved with IV ceftriaxone, to transition to oral Omnicef 300 mg twice daily for an additional 14 days. (2) Cellulitis of left lower extremity: (3) Diabetic ulcer of left great toe: Subjective Patient is seen and examined at bedside Doing much better today Leg pain/swelling/redness Improved Minimal cough No new complaints Denies any chest pain, shortness of breath, dizziness, nausea, abdominal pain. Review of Systems Review of Systems: All systems reviewed & are unremarkable except as noted in HPI & below Physical Exam Constitutional: WD/WN, vitals as above well developed, well nourished and + morbidly obese; no acute distress Eyes: PERRL, conjunctivae normal, anicteric sclerae ENMT: external ear and nose normal, oropharynx normal Neck: trachea midline, no thyromegaly normal visual inspection Thyroid: thyroid nontender Respiratory: normal respiratory effort, lungs clear to auscultation normal percussion; no respiratory distress Cardiovascular: RRR, no murmur, no edema Gastrointestinal (Abdomen): normal bowel sounds, soft, nontender, no hepatosplenomegaly Percussion/Palpation: no abdominal mass Musculoskeletal: no cyanosis or clubbing, extremities motor strength 5/5 Head/Neck/Chest: normocephalic and head atraumatic Skin: normal turgor, + ulcer (Left great toe) and + erythema (Left leg and thigh); no rashes Neurologic: moves all extremities and awake; no focal motor deficits Psychiatric: A+Ox3, euthymic affect Lymphatic: no cervical or axillary lymphadenopathy no inguinal lymphadenopathy Results & Data Vital Signs (Past 12 Hours) Vital Signs Temp Pulse Resp BP BP Pulse Ox 02/27/19 10:49 36.5 C 71 18 117/72 92 02/27/19 07:35 36.5 C 71 18 135/82 92 Laboratory Results Laboratory Results - last 48 hr 02/25/19 02/25/19 02/26/19 16:43 20:43 07:59 POC Glucose 80 144 H 103 H 02/26/19 02/26/19 02/26/19 11:50 16:27 20:21 POC Glucose 84 89 126 H 02/27/19 02/27/19 08:14 11:49 POC Glucose 106 H 103 H Diagnostic Findings Microbiology 02/22/19 05:46 Blood Aerobic Blood Culture - Final No growth in Aerobic bottle after 5 days. 02/22/19 05:46 Blood Anaerobic Blood Culture - Final No growth in Anaerobic bottle after 5 days. 02/22/19 05:36 Blood Aerobic Blood Culture - Final No growth in Aerobic bottle after 5 days. 02/22/19 05:36 Blood Anaerobic Blood Culture - Final No growth in Anaerobic bottle after 5 days. 02/24/19 20:00 Sputum, Expectorated Gram Stain - Final 02/24/19 20:00 Sputum, Expectorated Sputum Culture - Final Light normal alirio. 02/19/19 22:11 Blood Aerobic Blood Culture - Final Escherichia coli 02/19/19 22:11 Blood Anaerobic Blood Culture - Final No growth in Anaerobic bottle after 5 days. 02/20/19 13:40 Urine,Clean Catch Urine Culture - Final Yeast not Winnie albicans 02/19/19 21:20 Blood Aerobic Blood Culture - Final Escherichia coli 02/19/19 21:20 Blood Anaerobic Blood Culture - Final Escherichia coli
== END 2019-02-27 14:57 | disposition home health service (06) | DRG 872 ==
LOC: ED 20:15 → 4E 02-20 01:39 → SUATTDRO 02-20 01:39 → 4E 02-20 02:31
DX: E66.01 Morbid (severe) obesity due to excess calories; I48.91 Unspecified atrial fibrillation; Z90.49 Acquired absence of other specified parts of digestive tract; E11.622 Type 2 diabetes mellitus with other skin ulcer; G47.33 Obstructive sleep apnea (adult) (pediatric); Z79.82 Long term (current) use of aspirin; E03.9 Hypothyroidism, unspecified; N18.3 Chronic kidney disease, stage 3 (moderate); E78.5 Hyperlipidemia, unspecified; F32.9 Major depressive disorder, single episode, unspecified; R78.81 Bacteremia; J44.9 Chronic obstructive pulmonary disease, unspecified; I12.9 Hypertensive chronic kidney disease with stage 1 through stage 4 chronic kidney disease, or unspecified chronic kidney disease; L03.116 Cellulitis of left lower limb; M10.9 Gout, unspecified; Z68.43 Body mass index [BMI] 50.0-59.9, adult; Z79.4 Long term (current) use of insulin; Z88.5 Allergy status to narcotic agent; K21.9 Gastro-esophageal reflux disease without esophagitis

== ENCOUNTER 2019-02-28 16:52 | Observation (INO) ==
[2019-02-28 19:26] LABS: Basophils # (auto) 0.08 K/uL (0-0.2); Basophils % (auto) 0.7 %; Eosinophils # (auto) 0.34 K/uL (0-0.5); Eosinophils % (auto) 3.1 %; Hematocrit (blood only) 44.5 % (37-47); Hemoglobin 14.5 g/dL (12.0-16.0); Immature Granulocytes # (auto) 0.09 K/uL (0.00-0.02); Immature Granulocytes % (auto) 0.8 %; Lymphocytes # (auto) 3.23 K/uL (1.2-3.4); Lymphocytes % (auto) 29.3 %; Mean Corpuscular Hgb Conc 32.6 g/dL (32-36); Mean Corpuscular Volume 90.6 fL (80-100); Mean Platelet Volume 10.1 fL (7.4-10.4); Monocytes # (auto) 0.62 K/uL (0.11-0.59); Monocytes % (auto) 5.6 %; Neutrophils # (auto) 6.68 K/uL (1.4-6.5); Neutrophils % (auto) 60.5 %; Platelet Count 478 K/uL (130-400); RDW Coefficient of Variation 16.7 % (11.5-14.5); RDW Standard Deviation 55.7 fL (36.4-46.3); Red Blood Count 4.91 M/uL (4.2-5.4); White Blood Count 11.04 K/uL (4.8-10.8)
[2019-02-28 19:45] LABS: Albumin Level 2.9 gm/dl (3.4-5.0); BUN Creatinine Ratio 24.7 (10-20); Calcium 9.8 mg/dl (8.5-10.1); Creatinine Clr Calc Pharmacy 96.8 ml/min; Est GFR (African American) 82.7; Est GFR (Non-African American) 71.4; Potassium 4.2 mmol/L (3.5-5.1)
[2019-02-28 19:48] LABS: Albumin Globulin Ratio 0.6 (0.9-2); Bilirubin,Total 0.3 mg/dl (0.2-1); Globulin 4.9 gm/dl (2.5-4.0); Total Protein 7.8 gm/dl (6.4-8.2)
--- NOTE | 2019-02-28 20:40 | History & Physical Report ---
Date of Service February 28, 2019 Assessment & Plan (1) Bacteremia: (2) Cellulitis of left lower extremity: This is a 64-year-old female who has a significant past medical history of chronic atrial fibrillation anticoagulated on Pradaxa, IDDM, HTN, HLD, CKD stage III, hypothyroidism, NAVI noncompliant with CPAP, COPD, morbid obesity, depression with anxiety, GERD who presents to [facility] secondary to inability to care for self at home after recent discharge. Patient admitted 02/20/2019 and discharged 02/27/2019 secondary to E. coli bacteremia and left lower extreme the cellulitis. Was discharged home and unable to care for self/deteriorating living conditions required patient to return to hospital at recommendation of [facility] nurse for possible placement Admit to med/surg Continue Omnicef 300 mg twice daily for 11 additional days (22 doses) Continue doxycycline for possible bronchitis which will complete 03/01 WBC 11k, patient remains afebrile Follow CBC and BMP in a.m. Consult PT/OT Consult case management (3) Diabetic ulcer of left great toe: Continue local wound treatment Wound care nurse consulted (4) T2DM (type 2 diabetes mellitus): A1c 7.0 Continue Lantus 50 units SQ every 12 hours NovoLog sliding scale per protocol Continue ARB for renal protection (5) HTN (hypertension): Blood pressure stable on valsartan/hydrochlorothiazide, metoprolol, diltiazem Monitor (6) COPD (chronic obstructive pulmonary disease): No acute exacerbation Will complete doxycycline 03/01 at 9 AM PRN nebulizer (7) HLD (hyperlipidemia): Continue atorvastatin (8) Diabetic neuropathy: Neuropathy precautions Continue gabapentin (9) NAVI (obstructive sleep apnea): Noncompliant with CPAP (10) CKD (chronic kidney disease) stage 3, GFR 30-59 ml/min: BUN/creatinine stable at 21 and 0.86 Monitor BMP (11) Hypothyroid: Continue levothyroxine (12) Atrial fibrillation: Rate and rhythm controlled with metoprolol and diltiazem Continue Pradaxa for thrombotic control (13) Morbid obesity: Encouraged lifestyle modification BMI 56.8 (14) Gout: Continue allopurinol (15) DVT prophylaxis: Pradaxa Disposition: [facility] to [facility] facility, case management consulted for referral placement as patient unable to live at home Follow-up: PCP Dr. Vazquez upon discharge Patient was seen and examined in collaboration with Dr. Min, please see addendum Starting 03/01/2019 patient will return under the care of Dr. Nielsen History of Present Illness Chief Complaint: Inability to care for self at home with recent hospital discharge Primary Care Provider: Mohsen Vazquez MD This is a 64-year-old female who has a significant past medical history of chronic atrial fibrillation anticoagulated on Pradaxa, IDDM, HTN, HLD, CKD stage III, hypothyroidism, NAVI noncompliant with CPAP, COPD, morbid obesity, depression with anxiety, GERD who presents to [facility] secondary to inability to care for self at home after recent discharge. Patient was recently hospitalized on 02/20/2019 and discharged on 02/27/2019 secondary to left lower extremity cellulitis and E. coli bacteremia. Patient initially presented to hospital secondary to increasing redness and swelling to the left lower extremity. She does have a chronic diabetic ulcer of the left great toe in which she follows podiatry and wears a Darco shoe. Patient was admitted with left lower extreme a cellulitis and bacteremia. She is treated with IV vancomycin and Zosyn. Infectious disease was consulted and she was transitioned to ceftriaxone 2 g IV daily. Repeat blood cultures were negative. She was transitioned to oral Omnicef for 2 weeks upon discharge. Subsequently she also developed possible bronchitis. Her flu screen was negative and she was prescribed doxycycline for 5-day course. In regards to antibiotics patient has taken 2 doses of Omnicef while at home as well as 2 doses of doxycycline. She states she has been compliant with her medications. She was discharged last night approximately 4 PM. Upon returning home where she lives with her daughter and 3 grandkids she went home to poor living conditions. She states her bed smelled like dog pee and the entire house smelled like cat pee. Her daughter was unwilling to help care for her including unwilling to get her walker. Patient was having difficulty ambulating about house with walker. She also notes daughter had been stealing from her specifically [employer] and using her credit card. When home health came in to see patient today it was recommended she return to hospital for possibility of placement given above conditions. Currently from medical standpoint patient feels her left lower extremity has improved and is no longer as painful. She is unable to tell if the redness has improved. She denies any fevers but overall feels chilled. Denies lightheadedness, dizziness, chest pain, shortness of breath, palpitations, nausea, vomiting, abdominal pain. She states she has had looser stools for the past 2 weeks. Appetite has been normal. Allergies Allergy/AdvReac Type Severity Reaction Status Date / Time GIN Inhibitors Allergy Unknown UNK Verified 02/19/19 23:56 cat dander Allergy Unknown UNK Verified 02/19/19 23:56 codeine Allergy Unknown "CODEINE Verified 02/19/19 23:56 DERIVITIVES" house dust Allergy Unknown Unknown Verified 02/19/19 23:57 hydrocodone Allergy Unknown unknown Unverified 02/19/19 23:57 meperidine Allergy Unknown _ Verified 02/19/19 23:57 morphine Allergy Unknown "MORPHINE Verified 02/19/19 23:57 DERIVATIVES", MORPHINE IS OK pioglitazone Allergy Unknown UNK Verified 02/19/19 23:57 nickel AdvReac Rash Verified 02/19/19 23:58 Cockroach Allergy Unknown UNK Uncoded 02/19/19 23:58 Unclassified Drugs Allergy Unknown "ALLERGIC Uncoded 09/28/18 16:24 TO TREES" Home Medications Home Medications Medication Instructions Recorded Confirmed Type Lantus Solostar U-100 Insulin 50 unit SUBCUT BID 09/28/18 02/28/19 History Pradaxa 150 mg PO BID 09/28/18 02/28/19 History allopurinol 100 mg PO BID 09/28/18 02/28/19 History aspirin [Aspirin Low Dose] 81 mg PO QAM 09/28/18 02/28/19 History atorvastatin 40 mg PO HS 09/28/18 02/28/19 History benzonatate 100 mg PO TID PRN 09/28/18 02/28/19 History diltiazem HCl 360 mg PO QAM 09/28/18 02/28/19 History empagliflozin 25 mg PO QAM 09/28/18 02/28/19 History gabapentin 600 mg PO BID 09/28/18 02/28/19 History gemfibrozil 600 mg PO BID 09/28/18 02/28/19 History insulin lispro [Humalog KwikPen 15 unit SUBCUT 1400 PRN 09/28/18 02/28/19 History Insulin] insulin lispro [Humalog KwikPen 30 unit SUBCUT .EVENING MEAL PRN 09/28/18 02/28/19 History Insulin] insulin lispro [Humalog KwikPen 35 unit SUBCUT QAM PRN 09/28/18 02/28/19 History Insulin] ipratropium-albuterol 1 puff INHALATION QID 09/28/18 02/28/19 History levothyroxine 112 mcg PO QAM 09/28/18 02/28/19 History metoprolol tartrate 25 mg PO BID 09/28/18 02/28/19 History mometasone 2 spray INTRANASAL QAM 09/28/18 02/28/19 History bupropion HCl 150 mg PO BID 12/09/18 02/28/19 History diclofenac sodium 2 g TOPICAL QID 12/09/18 02/28/19 History albuterol sulfate 2.5 mg INHALATION Q4H PRN 02/19/19 02/28/19 History valsartan-hydrochlorothiazide 1 tab PO DAILY 02/19/19 02/28/19 History cefdinir 300 mg PO BID 12 Days #24 cap 02/27/19 02/28/19 Rx doxycycline hyclate 100 mg PO BID #4 cap 02/27/19 02/28/19 Rx Past Med/Surg History Medical History T2DM (type 2 diabetes mellitus) (Chronic) HTN (hypertension) (Chronic) HLD (hyperlipidemia) (Chronic) COPD (chronic obstructive pulmonary disease) (Chronic) NAVI (obstructive sleep apnea) (Chronic) Diabetic neuropathy (Chronic) CKD (chronic kidney disease) stage 3, GFR 30-59 ml/min (Chronic) GERD (gastroesophageal reflux disease) (Chronic) Depression (Chronic) Hypothyroid (Chronic) Gout (Chronic) Morbid obesity (Chronic) Atrial fibrillation (Chronic) Atrial fibrillation with rapid ventricular response (Resolved 07/14/14) Cellulitis (Resolved) Surgical History History of cholecystectomy (Resolved) History of hernia repair (Resolved) Family History Father Myocardial infarction Coronary heart disease Mother Complication of surgery Other No significant family history T2DM (type 2 diabetes mellitus) Social History Preferred Language: [place] Communication Ability: Effective Beliefs That Will Affect Care: None marital status: Current Living Situation: Family Current Living Situation Comment: Lives at home with daugther, son in law and grandchildren Feels Safe at Home: Yes Smoking Status: Former smoker Second Hand Exposure: Yes Hx Alcohol Use: No Hx Substance Use: No Review of Systems Review of Systems: As noted per HPI, 10 systems reviewed and negative unless noted above. Physical Exam Physical Exam: Gen: Morbidly obese female, sitting up in bedside chair, NAD, pleasant, conversing easily Head: Normocephalic, Atraumatic Eyes: Sclera normal, no conjunctival injection, PERRLA, EOMI ENT: Gross hearing intact, normal pharynx, mucous membranes moist Neck: supple, no adenopathy, No JVD, no bruit, Resp: Clear to auscultation b/l, no wheeze, rales, rhonchi. 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 She has left lower extremity erythema extending from lateral and medial malleoli region to tibial plateau. Area is not warm and appears more to be venous stasis/insufficiency no active cellulitis. Left Darco shoe in place. Left great toe diabetic ulcer. Dressing CDI. Bilateral pedal pulses +1 Skin: warm, moist, no rash, negative turgor, cap refill < 2sec Neuro: Alert and oriented x 3, speech normal, good mood/affect, cran nerve 2-12 intact grossly : deferred Results & Data Vital Signs (Past 12 Hours) Vital Signs Temp Pulse Pulse Resp BP BP Pulse Ox 02/28/19 20:25 65 18 134/76 98 02/28/19 18:45 66 18 124/76 98 02/28/19 16:58 37.2 C 81 18 152/85 H 96 Laboratory Results Short CBC 02/28/19 02/28/19 Range/Units 19:16 19:16 WBC 11.04 H (4.8-10.8) K/uL Hgb 14.5 (12.0-16.0) g/dL Hct 44.5 (37-47) % Plt Count 478 H (130-400) K/uL BUN 21 H (7-18) mg/dl Creatinine 0.86 (0.6-1.2) mg/dl BMP 02/28/19 19:16 Sodium 141 Potassium 4.2 Chloride 108 H Carbon Dioxide 26 BUN 21 H Creatinine 0.86 Glucose 67 L Calcium 9.8 Liver Function 02/28/19 Range/Units 19:16 Total Bilirubin 0.3 (0.2-1) mg/dl AST 27 (15-37) U/L ALT 38 (12-78) U/L Alkaline Phosphatase 136 H (45-117) U/L Albumin 2.9 L (3.4-5.0) gm/dl Supervising Physician Co-Signing Physician Notes Attending addendum Patient was seen and examined in the emergency room This is a 64-year-old female who has a significant past medical history of chronic atrial fibrillation anticoagulated on Pradaxa, IDDM, HTN, HLD, CKD stage III, hypothyroidism, NAVI noncompliant with CPAP, COPD, morbid obesity, depression with anxiety, GERD who presents to [facility] secondary to inability to care for self at home after recent discharge. She remains same medically stable and denies any significant symptoms She is being admitted for possible placement On examination Morbidly obese without any apparent distress at rest Hemodynamically stable Chest-decreased breath sounds without any crackles and/or wheezing Heart-S1-S2 regular Abdomen-distended, soft, difficult to feel for any organs, bowel sounds present Extremities bilateral leg edema about 1+ with redness in the lower legs mostly on the right. 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, awake and oriented x3 Admission labs-noted Continue current treatment for leg cellulitis and bronchitis We will get PT and OT evaluation Office of aging informed about home condition Agree with assessment and plan as outlined above by ALEXYS Heath Dr (1) Gout Chronicity: unspecified Gout etiology: unspecified cause Gout site: unspecified site Qualified Code(s): M10.9 - Gout, unspecified (2) T2DM (type 2 diabetes mellitus) Diabetes mellitus complication detail: with other skin complication Diabetes mellitus complication status: with skin complications 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 insulin use: with jail use Qualified Code(s): E11.628 - Type 2 diabetes mellitus with other skin complications; Z79.4 - 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 of insulin (3) Atrial fibrillation Atrial fibrillation type: chronic Qualified Code(s): I48.2 - Chronic atrial fibrillation (4) HLD (hyperlipidemia) Hyperlipidemia type: mixed hyperlipidemia Qualified Code(s): E78.2 - Mixed hyperlipidemia (5) Hypothyroid Hypothyroidism type: unspecified Qualified Code(s): E03.9 - Hypothyroidism, unspecified (6) COPD (chronic obstructive pulmonary disease) COPD type: unspecified COPD Qualified Code(s): J44.9 - Chronic obstructive pulmonary disease, unspecified (7) HTN (hypertension) Hypertension type: essential hypertension Qualified Code(s): I10 - Essential (primary) hypertension
[2019-02-28] MEDS ORDERED: GLUCOSE 40% GEL 15 GM TUBE PO PRN (22:22)
[2019-02-28] MEDS ORDERED: DEXTROSE 50% 50 ML SYRINGE IV PRN (22:22)
[2019-02-28] MEDS ORDERED: ONDANSETRON INJ 2 MG/ML 2 ML VIAL IV PRN (22:22)
[2019-02-28] MEDS ORDERED: ALUMINUM/MAGNESIUM SUSP 30 ML UDC PO PRN (22:22)
[2019-02-28] MEDS ORDERED: GLUCAGON FOR INJ 1 MG VIAL SQ PRN (22:22)
[2019-02-28] MEDS ORDERED: CARBOHYDRATES FOR HYPOGLYCEMIA PO PRN (22:22)
[2019-02-28] MEDS ORDERED: ALBUTEROL 0.083% NEBU SOLN 3 ML VIAL INH PRN (22:22)
[2019-02-28] MEDS ORDERED: POLYETHYLENE (MIRALAX) 17 GM PACK PO PRN (22:22)
[2019-02-28] MEDS ORDERED: GLUCOSE 10 TABS/TUBE PO PRN (22:22)
[2019-02-28] MEDS ORDERED: MAGNESIUM HYDROXIDE SUSP 30 ML UDC PO PRN (22:22)
[2019-02-28] MEDS: INSULIN ASPART 100 UNITS/ML 3 ML PEN SC SCH (23:05)
[2019-02-28] MEDS: INSULIN GLARGINE SOLOSTAR 100 UNITS/ML 3 ML PEN SC SCH (23:05)
[2019-02-28] MEDS: IPRATROPIUM BROMIDE/ALBUTEROL respimat INH INH SCH (23:06)
[2019-02-28] MEDS: GABAPENTIN 600 MG TAB PO SCH (23:07)
[2019-02-28] MEDS: ATORVASTATIN 40 MG TAB PO SCH (23:07)
[2019-02-28] MEDS: ALLOPURINOL 100 MG TAB PO SCH (23:08)
[2019-02-28] MEDS: DABIGATRAN ETEXILATE 75 MG CAP PO SCH (23:08)
[2019-02-28] MEDS: METOPROLOL TARTRATE 25 MG TAB PO SCH (23:08)
[2019-02-28] MEDS: BuPROPion SR 150 MG TABCR PO SCH (23:08)
[2019-02-28] MEDS: DOXYCYCLINE HYCLATE 100 MG CAP PO SCH (23:09)
[2019-02-28] MEDS: CEFDINIR 300 MG CAP PO SCH (23:09)
[2019-02-28] MEDS: GEMFIBROZIL 600 MG TAB PO SCH (23:10)
[2019-02-28] MEDS: ACETAMINOPHEN 325 MG TAB PO PRN (23:21)
--- NOTE | 2019-03-01 00:53 | Emergency Department Note ---
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 The patient states that she was hospitalized for a week for an infection in her leg and was discharged yesterday. She states that when she left she could not walk well. The patient reports that she does not feel safe at home and does not have anyone to care for her because she cannot care for herself. She states that when she was discharged she spoke to a pillowcase turner about a care facility, but her insurance does not cover any. The patient states that she has left leg pain still, nausea, diarrhea, but denies any vomiting, fever, or chills. The patient states that she has felt this way before. She reports that she cannot feed herself and her daughter is not a trustworthy. The patient states that she currently on blood thinners. Home Medications Home Medications Medication Instructions Recorded Confirmed Type Lantus Solostar U-100 Insulin 50 unit SUBCUT BID 09/28/18 02/28/19 History Pradaxa 150 mg PO BID 09/28/18 02/28/19 History allopurinol 100 mg PO BID 09/28/18 02/28/19 History aspirin [Aspirin Low Dose] 81 mg PO QAM 09/28/18 02/28/19 History atorvastatin 40 mg PO HS 09/28/18 02/28/19 History benzonatate 100 mg PO TID PRN 09/28/18 02/28/19 History diltiazem HCl 360 mg PO QAM 09/28/18 02/28/19 History empagliflozin 25 mg PO QAM 09/28/18 02/28/19 History gabapentin 600 mg PO BID 09/28/18 02/28/19 History gemfibrozil 600 mg PO BID 09/28/18 02/28/19 History insulin lispro [Humalog KwikPen 15 unit SUBCUT 1400 PRN 09/28/18 02/28/19 History Insulin] insulin lispro [Humalog KwikPen 30 unit SUBCUT .EVENING MEAL PRN 09/28/18 02/28/19 History Insulin] insulin lispro [Humalog KwikPen 35 unit SUBCUT QAM PRN 09/28/18 02/28/19 History Insulin] ipratropium-albuterol 1 puff INHALATION QID 09/28/18 02/28/19 History levothyroxine 112 mcg PO QAM 09/28/18 02/28/19 History metoprolol tartrate 25 mg PO BID 09/28/18 02/28/19 History mometasone 2 spray INTRANASAL QAM 09/28/18 02/28/19 History bupropion HCl 150 mg PO BID 12/09/18 02/28/19 History diclofenac sodium 2 g TOPICAL QID 12/09/18 02/28/19 History albuterol sulfate 2.5 mg INHALATION Q4H PRN 02/19/19 02/28/19 History valsartan-hydrochlorothiazide 1 tab PO DAILY 02/19/19 02/28/19 History cefdinir 300 mg PO BID 12 Days #24 cap 02/27/19 02/28/19 Rx doxycycline hyclate 100 mg PO BID #4 cap 02/27/19 02/28/19 Rx Allergies Allergy/AdvReac Type Severity Reaction Status Date / Time GIN Inhibitors Allergy Unknown UNK Verified 02/19/19 23:56 cat dander Allergy Unknown UNK Verified 02/19/19 23:56 codeine Allergy Unknown "CODEINE Verified 02/19/19 23:56 DERIVITIVES" house dust Allergy Unknown Unknown Verified 02/19/19 23:57 hydrocodone Allergy Unknown unknown Unverified 02/19/19 23:57 meperidine Allergy Unknown _ Verified 02/19/19 23:57 morphine Allergy Unknown "MORPHINE Verified 02/19/19 23:57 DERIVATIVES", MORPHINE IS OK pioglitazone Allergy Unknown UNK Verified 02/19/19 23:57 nickel AdvReac Rash Verified 02/19/19 23:58 Cockroach Allergy Unknown UNK Uncoded 02/19/19 23:58 Unclassified Drugs Allergy Unknown "ALLERGIC Uncoded 09/28/18 16:24 TO TREES" Past Med/Surg History Medical History T2DM (type 2 diabetes mellitus) (Chronic) HTN (hypertension) (Chronic) HLD (hyperlipidemia) (Chronic) COPD (chronic obstructive pulmonary disease) (Chronic) NAVI (obstructive sleep apnea) (Chronic) Diabetic neuropathy (Chronic) CKD (chronic kidney disease) stage 3, GFR 30-59 ml/min (Chronic) GERD (gastroesophageal reflux disease) (Chronic) Depression (Chronic) Hypothyroid (Chronic) Gout (Chronic) Morbid obesity (Chronic) Atrial fibrillation (Chronic) Atrial fibrillation with rapid ventricular response (Resolved 07/14/14) Cellulitis (Resolved) Surgical History History of cholecystectomy (Resolved) History of hernia repair (Resolved) Family History Father Myocardial infarction Coronary heart disease Mother Complication of surgery Other No significant family history T2DM (type 2 diabetes mellitus) Social History Preferred Language: Thai Communication Ability: Effective Waterway Traffic Checker Required: No Beliefs That Will Affect Care: None marital status: Current Living Situation: Family Current Living Situation Comment: Lives at home with daugther, son in law and grandchildren Other Information That Helps Us Care for You: No Feels Safe at Home: Yes Smoking Status: Former smoker Do You Dip or Chew Tobacco: No Second Hand Exposure: No Tobacco Cessation Education Requested by Patient: No Hx Alcohol Use: No Hx Substance Use: No Review of Systems See HPI for pertinent positives & negatives. and A total of 10 systems reviewed and were otherwise negative Physical Exam Vital Signs Vital Signs - 24 hr 02/28/19 16:58 02/28/19 18:45 02/28/19 20:25 Temperature 37.2 C Temperature Source Oral Sepsis Recent Fever Within 48 Hours No Sepsis New/Unexplained Change in Mental Status No Sepsis Action Taken by Nursing No Action Required Pulse Rate 81 Pulse Rate [Right Finger] 66 65 Respiratory Rate 18 18 18 Respiratory Effort / Characteristics Non-Labored Respiratory Depth Normal Respiratory Pattern Regular Blood Pressure 152/85 H Blood Pressure [Right Arm] 124/76 134/76 Blood Pressure Mean 107 Blood Pressure Mean [Right Arm] 92 95 Blood Pressure Position Sitting Pulse Oximetry 96 98 98 Oxygen Delivery Method Room Air General: Chronically-ill appearing middle aged female in no acute distress. HEENT: Normal cephalic atraumatic. Pupils are equal round and reactive to light. Extraocular movements are intact. Oropharynx is pink with moist mucous membranes. No swelling of the mouth lips or tongue. Neck: Supple with a midline trachea. No meningeal signs or stiffness, no JVD or bruits. No Stridor. Chest: Clear to auscultation bilaterally. No wheezes or rhonchi. No increased work of breathing. Heart: regular rate and rhythm. Abdomen: Soft nontender, nondistended without rebound guarding or rigidity. Extremities: Left leg mildly red with healing cellulitis. Bandage on ulcer under left great toe. No cyanosis clubbing or edema. No calf tenderness or asymmetry Spine/Back. Non tender to palpation. No CVA tenderness Skin: Good turgor without rashes. Neurologic exam: Cranial nerves two through 12 are intact. Motor and sensation are intact and symmetrical throughout. Course 1845: The patient was evaluated in room C5, and a complete history and physical examination were performed. 1949: I reevaluated the patient and discussed the patient's test results with her. I also discussed the possibilities of a further evaluation by the hospitalist staff. 1999: I discussed the case with Freda Maria PA-C, the patient will be further evaluated by the hospitalist staff. Reevaluation(s) Reevaluation #1: Freda Maria PA-C Time: 20:00 Administered Medications Acetaminophen (Tylenol) 650 mg PO Q4H PRN PRN Reason: pain/fever Stop: 03/30/19 22:21 Last Admin: 02/28/19 23:21 Dose: 650 mg Documented by: [id number] Albuterol (Combivent Respimat) 1 puffs INH QID [facility] Stop: 03/30/19 22:21 Last Admin: 02/28/19 23:06 Dose: 1 puffs Documented by: [id number] Allopurinol (Zyloprim) 100 mg PO BID [facility] Stop: 03/30/19 22:21 Last Admin: 02/28/19 23:08 Dose: 100 mg Documented by: [id number] Atorvastatin Calcium (Lipitor) 40 mg PO HS [facility] Stop: 03/30/19 22:21 Last Admin: 02/28/19 23:07 Dose: 40 mg Documented by: [id number] Bupropion HCl (Wellbutrin-Sr) 150 mg PO BID [facility] Stop: 03/30/19 22:21 Last Admin: 02/28/19 23:08 Dose: 150 mg Documented by: [id number] Cefdinir (Omnicef) 300 mg PO BID [facility] Stop: 03/11/19 09:01 Last Admin: 02/28/19 23:09 Dose: 300 mg Documented by: [id number] Dabigatran (Pradaxa) 150 mg PO BID [facility] Stop: 03/30/19 22:44 Last Admin: 02/28/19 23:08 Dose: 150 mg Documented by: [id number] Doxycycline Hyclate (Vibramycin) 100 mg PO BID [facility] Stop: 03/01/19 09:01 Last Admin: 02/28/19 23:09 Dose: 100 mg Documented by: [id number] Gabapentin (Neurontin) 600 mg PO BID [facility] Stop: 03/30/19 22:21 Last Admin: 02/28/19 23:07 Dose: 600 mg Documented by: [id number] Gemfibrozil (Lopid) 600 mg PO BID [facility] Stop: 03/30/19 22:21 Last Admin: 02/28/19 23:10 Dose: 600 mg Documented by: [id number] Insulin Aspart (Novolog Flexpen) 0 units SC ACHS [facility] Stop: 03/30/19 22:21 Last Admin: 02/28/19 23:05 Dose: Not Given Documented by: [id number] Cosigned by: [id number] Insulin Glargine (Lantus Solostar Pen) 0 units SC BID [facility] Stop: 03/30/19 22:21 Last Admin: 02/28/19 23:05 Dose: 25 units Documented by: [id number] Cosigned by: [id number] Metoprolol Tartrate (Lopressor) 25 mg PO BID [facility] Stop: 03/30/19 22:21 Last Admin: 02/28/19 23:08 Dose: 25 mg Documented by: [id number] Medical Decision Making Differential Diagnosis Differntials include weakness, cellulitis, and sepsis. Medical Records Attestation: I reviewed the patient's medical records. Home Medications Current Medication List: was personally reviewed by me Laboratory Data Attestation: I reviewed the patient's lab results. Result diagrams: 02/28/19 19:16 02/28/19 19:16 Lab Results 02/28/19 02/28/19 02/28/19 Range/Units 19:16 19:16 19:59 WBC 11.04 H (4.8-10.8) K/uL RBC 4.91 (4.2-5.4) M/uL Hgb 14.5 (12.0-16.0) g/dL Hct 44.5 (37-47) % MCV 90.6 (80-100) fL MCH 29.5 (25-34) pg MCHC 32.6 (32-36) g/dL RDW Std Deviation 55.7 H (36.4-46.3) fL RDW Coeff of Faraz 16.7 H (11.5-14.5) % Plt Count 478 H (130-400) K/uL MPV 10.1 (7.4-10.4) fL Immature Gran % (Auto) 0.8 % Neut % (Auto) 60.5 % Lymph % (Auto) 29.3 % Crawford % (Auto) 5.6 % Eos % (Auto) 3.1 % Baso % (Auto) 0.7 % Immature Gran # (Auto) 0.09 H (0.00-0.02) K/uL Neut # (Auto) 6.68 H (1.4-6.5) K/uL Lymph # (Auto) 3.23 (1.2-3.4) K/uL Crawford # (Auto) 0.62 H (0.11-0.59) K/uL Eos # (Auto) 0.34 (0-0.5) K/uL Baso # (Auto) 0.08 (0-0.2) K/uL Sodium 141 (136-145) mmol/L Potassium 4.2 (3.5-5.1) mmol/L Chloride 108 H (98-107) mmol/L Carbon Dioxide 26 (21-32) mmol/L Anion Gap 8.0 (3-11) BUN 21 H (7-18) mg/dl Creatinine 0.86 (0.6-1.2) mg/dl Est Cr Clr Drug Dosing 96.8 ml/min Est GFR ( Amer) 82.7 Est GFR (Non-Af Amer) 71.4 BUN/Creatinine Ratio 24.7 H (10-20) Glucose 67 L (70-99) mg/dl POC Glucose 88 (70-99) Calcium 9.8 (8.5-10.1) mg/dl Total Bilirubin 0.3 (0.2-1) mg/dl AST 27 (15-37) U/L ALT 38 (12-78) U/L Alkaline Phosphatase 136 H (45-117) U/L Total Protein 7.8 (6.4-8.2) gm/dl Albumin 2.9 L (3.4-5.0) gm/dl Globulin 4.9 H (2.5-4.0) gm/dl Albumin/Globulin Ratio 0.6 L (0.9-2) Lipase 151 (73-393) U/L Blood Pressure Blood Pressure Findings: Normal blood pressure MDM Narrative This patient comes in as described above. She was placed in room C5. She was discharged from the hospital yesterday after having cellulitis and is on home antibiotics. Nursing came to check on her and is very concerned and I do not feel she issafe at home. they did get the office of aging involved and the patient was sent back to the ER. She cannot care or feed herself. She lives with her daughter who is not home a lot. The patient also cannot get her walker in the house. The patient feels her leg is no worse, she has had no fever. I did repeat her labs for white count is 11.4. She has no significant electrolyte or metabolic abnormalities. Our pillowcase turner get involved as well. He saw the patient in the ER and we have consulted the [facility] Hospitalist team to see her for admission and placement. Impression & Plan Weakness, Cellulitis, Ambulatory dysfunction Discharge Plan Visit Data *Final* Discharge Date/Time: 02/28/19 21:53 Chief Complaint: Referred by Doctor Stated Complaint: EMERGENCY ADMISSION-[facility] NURSE ED Provider: Fredy Alcantara Discharge Problem: Weakness, Cellulitis, Ambulatory dysfunction Patient Disposition: Admitted As Inpatient Discharge Instructions Interventions: ED Discharge Assessment Last Done: 02/28/19 21:53 The scribe's documentation has been prepared under my direction and personally reviewed by me in its entirety. I confirm that the note above accurately reflects all work, treatment, procedures, and medical decision making performed by me.
[2019-03-01] MEDS: LEVOTHYROXINE SODIUM 112 MCG TABLET PO SCH (06:11)
[2019-03-01 07:15] LABS: Hematocrit (blood only) 42.4 % (37-47); Hemoglobin 13.6 g/dL (12.0-16.0); Mean Corpuscular Hgb Conc 32.1 g/dL (32-36); Mean Platelet Volume 10.2 fL (7.4-10.4); Platelet Count 432 K/uL (130-400); RDW Coefficient of Variation 16.8 % (11.5-14.5); RDW Standard Deviation 55.3 fL (36.4-46.3); Red Blood Count 4.66 M/uL (4.2-5.4); White Blood Count 10.43 K/uL (4.8-10.8)
[2019-03-01 07:48] LABS: BUN Creatinine Ratio 23.2 (10-20); Calcium 9.4 mg/dl (8.5-10.1); Creatinine Clr Calc Pharmacy 93.6 ml/min; Est GFR (African American) 79.4; Est GFR (Non-African American) 68.5; Potassium 4.1 mmol/L (3.5-5.1)
[2019-03-01] MEDS: DOXYCYCLINE HYCLATE 100 MG CAP PO SCH (07:53)
[2019-03-01] MEDS: IPRATROPIUM BROMIDE/ALBUTEROL respimat INH INH SCH ×4 (07:53→20:12)
[2019-03-01] MEDS: DABIGATRAN ETEXILATE 75 MG CAP PO SCH ×2 (07:54→20:13)
[2019-03-01] MEDS: CEFDINIR 300 MG CAP PO SCH ×2 (07:54→20:13)
[2019-03-01] MEDS: ASPIRIN 81 MG ECTAB PO SCH (07:54)
[2019-03-01] MEDS: BuPROPion SR 150 MG TABCR PO SCH ×2 (07:55→20:16)
[2019-03-01] MEDS: METOPROLOL TARTRATE 25 MG TAB PO SCH ×2 (07:55→20:15)
[2019-03-01] MEDS: ALLOPURINOL 100 MG TAB PO SCH ×2 (07:55→20:16)
[2019-03-01] MEDS: GABAPENTIN 600 MG TAB PO SCH ×2 (07:56→20:15)
[2019-03-01] MEDS: VALSARTAN 80 MG TAB PO SCH (07:56)
[2019-03-01] MEDS: GEMFIBROZIL 600 MG TAB PO SCH ×2 (07:57→20:15)
[2019-03-01] MEDS: dilTIAZem HCL 120 MG CAPCR PO SCH (07:57)
[2019-03-01] MEDS: FLUTICASONE PROPIONATE NA SPR 16 GM BTL NAE SCH (07:58)
[2019-03-01] MEDS: hydroCHLOROthiazide 25 MG TAB PO SCH (07:58)
[2019-03-01] MEDS: INSULIN ASPART 100 UNITS/ML 3 ML PEN SC SCH ×4 (08:41→20:17)
[2019-03-01] MEDS: INSULIN GLARGINE SOLOSTAR 100 UNITS/ML 3 ML PEN SC SCH ×2 (08:42→20:17)
--- NOTE | 2019-03-01 13:37 | Hospitalist Progress Note ---
Date of Service March 01, 2019 Assessment & Plan (1) Bacteremia: (2) Cellulitis of left lower extremity: Patient is a 64 yr female with H/O chronic atrial fibrillation anticoagulated on Pradaxa, IDDM, HTN, HLD, CKD stage III, hypothyroidism, NAVI noncompliant with CPAP, COPD, morbid obesity, depression with anxiety, GERD who presents to [facility] secondary to inability to care for self at home after recent discharge. Patient was admitted 02/20/2019 and discharged 02/27/2019 secondary to E. coli bacteremia and left lower extreme the cellulitis. Patient was discharged home with home health services. She was unable to care for self/deteriorating living conditions required patient to return to hospital at recommendation of [facility] nurse for possible placement Continue Omnicef 300 mg twice daily for 10 more days Continue doxycycline for possible bronchitis today Consult PT/OT Consult case management May need placement Office of Aging was involved (3) Diabetic ulcer of left great toe: Continue local wound treatment Wound care nurse consulted (4) T2DM (type 2 diabetes mellitus): A1c 7.0 Continue Lantus 50 units SQ every 12 hours NovoLog sliding scale per protocol Monitor BGs (5) HTN (hypertension): Continue valsartan/hydrochlorothiazide, metoprolol, diltiazem Monitor (6) COPD (chronic obstructive pulmonary disease): No signs of acute exacerbation Nebs PRN (7) HLD (hyperlipidemia): Continue atorvastatin (8) Diabetic neuropathy: Continue gabapentin (9) NAVI (obstructive sleep apnea): Noncompliant with CPAP (10) CKD (chronic kidney disease) stage 3, GFR 30-59 ml/min: Cr at baseline Monitor BMP (11) Hypothyroid: Continue levothyroxine (12) Atrial fibrillation: Continue metoprolol, diltiazem On Pradaxa for anticoagulation (13) Morbid obesity: Encouraged lifestyle modification BMI 56.8 (14) Gout: Continue allopurinol (15) DVT prophylaxis: Pradaxa Disposition: Discharge to SNF if qualifies. Patient unable to care for self at home Office of Aging involved Case management involved Follow-up: PCP Dr. Vazquez upon discharge Subjective Patient is seen and examined at bedside Tearful while discussing about family situation at home Leg pain is minimal No other complaints Denies any chest pain, shortness of breath, dizziness, nausea, abdominal pain. Review of Systems Review of Systems: All systems reviewed & are unremarkable except as noted in HPI & below Physical Exam Physical Exam: Physical Exam: Vitals signs as noted above General Appearance:Obese, no apparent distress Head: normocephalic, Atraumatic Eyes: normal inspection, EOMI Neck: supple, Trachea midline Respiratory/Chest: Normal breath sounds, CTA Cardiovascular: S1, S2, No murmur Abdomen/GI:Soft, Non tender, Bowel sounds present Extremities/Musculoskelatal:normal inspection, Left leg erythematous improved , + chronic Foot ulcer Neurologic/Psych:AAOX3, grossly no focal neurological deficits Skin: normal color, warm Results & Data Vital Signs (Past 12 Hours) Vital Signs Temp Pulse Resp BP Pulse Ox 03/01/19 06:59 36.6 C 75 20 102/66 96 Laboratory Results Short CBC 02/28/19 03/01/19 Range/Units 19:16 06:37 WBC 11.04 H 10.43 (4.8-10.8) K/uL Hgb 14.5 13.6 (12.0-16.0) g/dL Hct 44.5 42.4 (37-47) % Plt Count 478 H 432 H (130-400) K/uL BMP 02/28/19 03/01/19 19:16 06:37 Sodium 141 142 Potassium 4.2 4.1 Chloride 108 H 108 H Carbon Dioxide 26 27 BUN 21 H 21 H Creatinine 0.86 0.89 Glucose 67 L 113 H Calcium 9.8 9.4 Liver Function 02/28/19 Range/Units 19:16 Total Bilirubin 0.3 (0.2-1) mg/dl AST 27 (15-37) U/L ALT 38 (12-78) U/L Alkaline Phosphatase 136 H (45-117) U/L Albumin 2.9 L (3.4-5.0) gm/dl (1) T2DM (type 2 diabetes mellitus) Diabetes mellitus terminal system operator insulin use: with terminal system operator use Diabetes mellitus complication status: with skin complications Diabetes mellitus complication detail: with other skin complication Qualified Code(s): E11.628 - Type 2 diabetes mellitus with other skin complications; Z79.4 - long-term (current) use of insulin (2) HTN (hypertension) Hypertension type: essential hypertension Qualified Code(s): I10 - Essential (primary) hypertension (3) COPD (chronic obstructive pulmonary disease) COPD type: unspecified COPD Qualified Code(s): J44.9 - Chronic obstructive pulmonary disease, unspecified (4) HLD (hyperlipidemia) Hyperlipidemia type: mixed hyperlipidemia Qualified Code(s): E78.2 - Mixed hyperlipidemia (5) Hypothyroid Hypothyroidism type: unspecified Qualified Code(s): E03.9 - Hypothyroidism, unspecified (6) Atrial fibrillation Atrial fibrillation type: chronic Qualified Code(s): I48.2 - Chronic atrial fibrillation (7) Gout Gout site: unspecified site Gout etiology: unspecified cause Chronicity: unspecified Qualified Code(s): M10.9 - Gout, unspecified
[2019-03-01] MEDS: ATORVASTATIN 40 MG TAB PO SCH (20:14)
[2019-03-01] MEDS: ACETAMINOPHEN 325 MG TAB PO PRN (20:57)
[2019-03-02] MEDS: LEVOTHYROXINE SODIUM 112 MCG TABLET PO SCH (05:47)
[2019-03-02] MEDS: DABIGATRAN ETEXILATE 75 MG CAP PO SCH (07:58)
[2019-03-02] MEDS: CEFDINIR 300 MG CAP PO SCH (07:59)
[2019-03-02] MEDS: dilTIAZem HCL 120 MG CAPCR PO SCH (07:59)
[2019-03-02] MEDS: METOPROLOL TARTRATE 25 MG TAB PO SCH (07:59)
[2019-03-02] MEDS: VALSARTAN 80 MG TAB PO SCH (08:00)
[2019-03-02] MEDS: hydroCHLOROthiazide 25 MG TAB PO SCH (08:01)
[2019-03-02] MEDS: BuPROPion SR 150 MG TABCR PO SCH (08:01)
[2019-03-02] MEDS: GABAPENTIN 600 MG TAB PO SCH (08:01)
[2019-03-02] MEDS: ALLOPURINOL 100 MG TAB PO SCH (08:01)
[2019-03-02] MEDS: GEMFIBROZIL 600 MG TAB PO SCH (08:02)
[2019-03-02] MEDS: IPRATROPIUM BROMIDE/ALBUTEROL respimat INH INH SCH ×3 (08:02→17:00)
[2019-03-02] MEDS: FLUTICASONE PROPIONATE NA SPR 16 GM BTL NAE SCH (08:02)
[2019-03-02] MEDS: ASPIRIN 81 MG ECTAB PO SCH (08:02)
[2019-03-02] MEDS: INSULIN GLARGINE SOLOSTAR 100 UNITS/ML 3 ML PEN SC SCH (08:35)
[2019-03-02] MEDS: INSULIN ASPART 100 UNITS/ML 3 ML PEN SC SCH ×3 (08:36→19:25)
--- NOTE | 2019-03-02 18:10 | Hospitalist Progress Note ---
Date of Service March 02, 2019 Assessment & Plan (1) Cellulitis of left lower extremity: Improving. Afebrile on PO Rx. Continue course of cefdinir as recommended by ID. (2) Diabetic ulcer of left great toe: Seen by Wound Care Nursing. Outpatient follow-up with Podiatry. (3) T2DM (type 2 diabetes mellitus): FBS 124. Continue usual regimen. (4) Discharge planning issues: Medically stable for discharge. Cellulitis improving on oral therapy. Afebrile. Ambulating independently. Seen by Case Management. There are concerns about home environment, but patient not eligible for skilled care or inpatient rehab. Discharge to home with home health services. Subjective Doing well. No fever. No nausea, vomiting, diarrhea. Ambulating independently. Physical Exam Constitutional: no acute distress Respiratory: no respiratory distress Auscultation: lungs clear to auscultation bilaterally Cardiovascular: Rate/Rhythm: + irregularly irregular Vessels: no JVD Extremities: + edema (trace pretibial); no calf tenderness Gastrointestinal (Abdomen): normal bowel sounds, soft, nontender, no hepatosplenomegaly Musculoskeletal: ulcer plantar surface left great toe, 8 mm, no drainage Skin: resolving erythema left leg Psychiatric: Orientation: alert and oriented x 3 Results & Data Vital Signs (Past 12 Hours) Vital Signs Temp Pulse Resp BP Pulse Ox 03/02/19 15:07 36.9 C 70 20 106/61 94 03/02/19 06:57 36.5 C 65 18 110/65 90 (1) T2DM (type 2 diabetes mellitus) Diabetes mellitus senior care insulin use: with senior care use Diabetes mellitus complication status: with skin complications Diabetes mellitus complication detail: with other skin complication Qualified Code(s): E11.628 - Type 2 diabetes mellitus with other skin complications; Z79.4 - superintendent terminal (current) use of insulin
--- NOTE | 2019-03-05 04:33 | Discharge Summary ---
Date of Service Date of Admission: 02/28/19 Date of Discharge: 03/02/19 Admission HPI Per Admitting Provider This is a 64-year-old female who has a significant past medical history of chronic atrial fibrillation anticoagulated on Pradaxa, IDDM, HTN, HLD, CKD stage III, hypothyroidism, NAVI noncompliant with CPAP, COPD, morbid obesity, depression with anxiety, GERD who presents to [facility] secondary to inability to care for self at home after recent discharge. Patient was recently hospitalized on 02/20/2019 and discharged on 02/27/2019 secondary to left lower extremity cellulitis and E. coli bacteremia. Patient initially presented to hospital secondary to increasing redness and swelling to the left lower extremity. She does have a chronic diabetic ulcer of the left great toe in which she follows podiatry and wears a Darco shoe. Patient was admitted with left lower extreme a cellulitis and bacteremia. She is treated with IV vancomycin and Zosyn. Infectious disease was consulted and she was transitioned to ceftriaxone 2 g IV daily. Repeat blood cultures were negative. She was transitioned to oral Omnicef for 2 weeks upon discharge. Subsequently she also developed possible bronchitis. Her flu screen was negative and she was prescribed doxycycline for 5-day course. In regards to antibiotics patient has taken 2 doses of Omnicef while at home as well as 2 doses of doxycycline. She states she has been compliant with her medications. She was discharged last night approximately 4 PM. Upon returning home where she lives with her daughter and 3 grandkids she went home to poor living conditions. She states her bed smelled like dog pee and the entire house smelled like cat pee. Her daughter was unwilling to help care for her including unwilling to get her walker. Patient was having difficulty ambulating about house with walker. She also notes daughter had been stealing from her specifically madrigal and using her credit card. When home health came in to see patient today it was recommended she return to hospital for possibility of placement given above conditions. Currently from medical standpoint patient feels her left lower extremity has improved and is no longer as painful. She is unable to tell if the redness has improved. She denies any fevers but overall feels chilled. Denies lightheadedness, dizziness, chest pain, shortness of breath, palpitations, nausea, vomiting, abdominal pain. She states she has had looser stools for the past 2 weeks. Appetite has been normal. Admission Exam Per Admitting Provider Gen: Morbidly obese female, sitting up in bedside chair, NAD, pleasant, conversing easily Head: Normocephalic, Atraumatic Eyes: Sclera normal, no conjunctival injection, PERRLA, EOMI ENT: Gross hearing intact, normal pharynx, mucous membranes moist Neck: supple, no adenopathy, No JVD, no bruit, Resp: Clear to auscultation b/l, no wheeze, rales, rhonchi. 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 She has left lower extremity erythema extending from lateral and medial malleoli region to tibial plateau. Area is not warm and appears more to be venous stasis/insufficiency no active cellulitis. Left Darco shoe in place. Left great toe diabetic ulcer. Dressing CDI. Bilateral pedal pulses +1 Skin: warm, moist, no rash, negative turgor, cap refill < 2sec Neuro: Alert and oriented x 3, speech normal, good mood/affect, cran nerve 2-12 intact grossly : deferred Principal Diagnosis cellulitis left lower extremity diabetic foot ulcer left great toe Discharge Data Allergies Allergy/AdvReac Type Severity Reaction Status Date / Time GIN Inhibitors Allergy Unknown UNK Verified 02/19/19 23:56 cat dander Allergy Unknown UNK Verified 02/19/19 23:56 codeine Allergy Unknown "CODEINE Verified 02/19/19 23:56 DERIVITIVES" house dust Allergy Unknown Unknown Verified 02/19/19 23:57 hydrocodone Allergy Unknown unknown Unverified 02/19/19 23:57 meperidine Allergy Unknown _ Verified 02/19/19 23:57 morphine Allergy Unknown "MORPHINE Verified 02/19/19 23:57 DERIVATIVES", MORPHINE IS OK pioglitazone Allergy Unknown UNK Verified 02/19/19 23:57 nickel AdvReac Rash Verified 02/19/19 23:58 Cockroach Allergy Unknown UNK Uncoded 02/19/19 23:58 Unclassified Drugs Allergy Unknown "ALLERGIC Uncoded 09/28/18 16:24 TO TREES" Consultations 02/28/19 19:47 ED Decision to Admit Stat 02/28/19 22:22 Consult Case Management - Discharge Planning Routine Hospital Course (1) Cellulitis of left lower extremity: Improving. Afebrile on PO Rx. Continue course of cefdinir as recommended by ID on 02/27 (approximately 10 more days). (2) Diabetic ulcer of left great toe: Seen by Wound Care Nursing. Outpatient follow-up with Podiatry. (3) T2DM (type 2 diabetes mellitus): FBS 124. Continue usual regimen. (4) Discharge planning issues: Medically stable for discharge. Cellulitis improving on oral therapy. Afebrile. Ambulating independently. Seen by Case Management. There are concerns about home environment, but patient not eligible for skilled care or inpatient rehab. Discharge to home with home health services. Total Time Total Time Spent Total Time Spent (In Minutes): 30 Discharge Plan Discharge Items Patient Disposition: Home - Home Health Services Reason For Visit: cellulitis leg Discharge Diagnosis: cellulitis leg Condition: Good Discharge Goals: Decrease discomfort and Improve disease control Activity: Resume your previous activity Non-emergency contact: Primary Care Provider, Hospitalist and Specialist Call non-emergency contact if: you have any medication questions, your symptoms worsen and you have a fever Follow-up/Referrals: Mohsen Vazquez MD [Primary Care Provider] - (03/05/2019 11:00 AM Mohsen Vazquez MD) Diet: Carb Consistent or DM2 and Heart Healthy Addtl Provider Instructions: Wash legs and feet with soap and water daily. Do not walk around in bare feet. Continue cefdinir (Omnicef) as previously prescribed until gone. Seek medical attention if you have: * temperature above 101 * chest pain or trouble breathing * abdominal pain, nausea, vomiting * diarrhea, dark stools or bloody stools * any unanswered questions or concerns Call [phone] if symptoms are severe. Call if you have any questions or problems. My cell # is [phone]. You can also reach a [facility] hospitalist on duty at [facility] 24 hours a day by calling [phone]. Prescriptions: Continued atorvastatin 40 mg Tablet 40 mg PO HS RF: 0 gabapentin 600 mg Tablet 600 mg PO BID RF: 0 diltiazem HCl 360 mg capsule,extended release 24 hr 360 mg PO QAM RF: 0 allopurinol 100 mg Tablet 100 mg PO BID RF: 0 aspirin [Aspirin Low Dose] 81 mg Tablet,Delayed Release (Dr/Ec) 81 mg PO QAM RF: 0 benzonatate 100 mg Capsule 100 mg PO TID PRN (Reason: Cough) RF: 0 gemfibrozil 600 mg Tablet 600 mg PO BID RF: 0 mometasone 50 mcg/actuation [place],Non-Aerosol 2 spray INTRANASAL QAM RF: 0 levothyroxine 112 mcg Tablet 112 mcg PO QAM RF: 0 insulin lispro [Humalog KwikPen Insulin] 100 unit/mL Insulin Pen 35 unit SUBCUT QAM PRN (Reason: Hyperglycemia) RF: 0 insulin lispro [Humalog KwikPen Insulin] 100 unit/mL Insulin Pen 30 unit SUBCUT .EVENING MEAL PRN (Reason: Hyperglycemia) RF: 0 insulin lispro [Humalog KwikPen Insulin] 100 unit/mL Insulin Pen 15 unit SUBCUT 1400 PRN (Reason: Hyperglycemia) RF: 0 metoprolol tartrate 25 mg Tablet 25 mg PO BID RF: 0 Lantus Solostar U-100 Insulin 100 unit/mL (3 mL) Insulin Pen 50 unit SUBCUT BID RF: 0 Pradaxa 150 mg Capsule 150 mg PO BID RF: 0 empagliflozin 25 mg Tablet 25 mg PO QAM RF: 0 ipratropium-albuterol 20-100 mcg/actuation mist 1 puff Inhalation QID RF: 0 valsartan-hydrochlorothiazide 320-25 mg tablet 1 tab PO DAILY RF: 0 albuterol sulfate 2.5 mg /3 mL (0.083 %) Solution For Nebulization 2.5 mg INHALATION Q4H PRN (Reason: Wheezing) RF: 0 cefdinir 300 mg capsule 300 mg PO BID 12 Days Qty: 24 RF: 0 bupropion HCl 150 mg tablet sustained-release 12 hr 150 mg PO BID RF: 0 diclofenac sodium 1 % gel 2 g topical QID RF: 0 Discontinued doxycycline hyclate 100 mg Capsule 100 mg PO BID Qty: 4 RF: 0 Stand-Alone Forms: [facility] Discharge Orders: Discharge Order (Routine); Ordered 03/02/19 Ordered By: Garett Booker Admission Data Admit Date/Time: 02/28/19 20:27 Attending Provider: Garett Booker Admit Provider: Naveen Min Primary Care Provider: Mohsen Vazquez Other Providers: Duarte Dempsey ; Erik Nielsen Service: Medical Other Interventions: Discharge Summary Assessment (RN) Last Done: 03/02/19 18:59 DC Date/Time DO NOT enter until pt leaves facility: 03/02/19 20:00
== END 2019-03-02 20:00 | disposition home health service (06) ==
LOC: 4W 16:52 → ED 16:52 → SUATTDRO 20:27 → 4W 21:53

== ENCOUNTER 2022-04-16 00:26 | Observation (INO) ==
[2022-04-16] MEDS ORDERED: SODIUM CHLORIDE 0.9% 500 ML IV STA (00:36)
--- NOTE | 2022-04-16 00:50 | Emergency Department Note ---
Impression & Plan Lower gastrointestinal hemorrhage ADMIT ED Provider Note HPI: The patient is a 67-year-old female with history of paroxysmal atrial fibrillation, on Pradaxa, presents to the emergency department with a chief complaint of lower GI bleeding. Patient states she had a colonoscopy this past Tuesday with Dr. Cifuentes of gastroenterology, states that with her colonoscopy several polyps were resected. Patient states that she had not been having any issues with bloody bowel movements since her colonoscopy this past Tuesday, and today she did develop some grossly bloody bowel movements that happen several times throughout the evening. Patient states she skipped her evening dose of Pradaxa because of this. Patient was concerned about this therefore presented to the emergency department for further evaluation. She states she does not have any abdominal pain, denies any vomiting, on arrival here to the ED she is hemodynamically stable, otherwise no acute distress on my initial evaluation. ROS: -GI: Lower GI bleed *10 point review systems was conducted and is otherwise negative unless stated above *Outpatient medications and allergy history reviewed PE: General: Alert, NAD HEENT: Normocephalic, atraumatic Eyes: Extraocular eye movement is intact, no scleral erythema Pulmonary: Clear to auscultation bilaterally, no wheezing Cardio: Regular rate and rhythm GI: Abdomen is soft, nontender, rectal examination was performed with female RN at the bedside that does not show any evidence of gross bleeding or external hemorrhoids : No suprapubic tenderness MSK: No evidence of trauma or malformation of the extremities, no edema Skin: No evidence of rash Neuro: Alert, no focal deficits Psychiatric: Cooperative youth nutritional monitor: - An order was placed for continuous cardiac monitoring - Patient was noted to be in sinus rhythm with a rate of 80 Medical Decision Making: Patient presented to the emergency department with a chief complaint of lower GI bleed, she states that she had a colonoscopy done this past Tuesday with Dr. Cifuentes, she did have multiple polyps biopsied. Patient was not having any GI bleeding until today. On arrival here to the ED the patient is conversational, she is hemodynamically stable, she is in no acute distress, denies any abdominal pain, denies any nausea or vomiting. IV was established, lab work obtained, patient was placed on cardiac monitor technician, lab work shows a normal hemoglobin of 14.1, patient did have a grossly bloody bowel movement again here in the ED and she does appear to be having some amount of active bleeding. Type and screen was sent. Patient was given a IV fluid bolus here in the ED. She did not take her anticoagulation this evening. We will hold on any potential reversal agents given her hemodynamic stability and last dose of anticoagulant being greater than 12 hours ago. Consultation was placed for GI, page was placed to discuss the case with the on-call GI attending from the ED. I did discuss the case with the on-call hospitalist for [facility], Dr. Vallejo, and the patient will be admitted to an observation bed for GI consultation to determine whether or not she will require a repeat colonoscopy to assess for the source of bleeding and possible cautery. Patient is in agreement to this plan, on my reassessment she continues to appear well, she is otherwise in no acute distress. Patient was admitted in stable condition for further care. Diagnosis: 1. Lower GI bleed 2. Postprocedural day 5 status post colonoscopy 3. Pt on anticoagulation Disposition: ADMIT Matthieu Odell, DO Emergency Medicine Past Med/Surg History Medical History Atrial fibrillation with rapid ventricular response (07/14/14) - follows w/ dr norris last visit 1 yr ago- takes pradaxa COPD (chronic obstructive pulmonary disease) Depression Diabetic neuropathy GERD (gastroesophageal reflux disease) Gout HLD (hyperlipidemia) HTN (hypertension) Hx of ovarian cancer 2018- surgical intervention, no chemo or radiation-[facility] [place] Hypothyroid Nausea and vomiting after administration of anesthetic agent NAVI (obstructive sleep apnea) cpap Surgical History History of cholecystectomy History of hernia repair during hysterectomy S/P appendectomy during hysterectomy S/P hysterectomy Status post colonoscopy with polypectomy Family History Father Myocardial infarction Coronary heart disease Diabetes Mother Complication of surgery Diabetes Sister Diabetes Sister Diabetes Brother Diabetes "Pre-diabetic" Sister Diabetes Sister Gestational diabetes Grandmother (Paternal) Diabetes Grandmother (Maternal) Diabetes Social History Smoking Status: Never smoker Years Smoked: 1; Cigarettes Per Day: quit 1976; Second Hand Exposure: No; Hx Alcohol Use: No Hx Substance Use: No Preferred Language: Tanzanian Communication Ability: Effective Process Control Technician Required: No Beliefs That Will Affect Care: None marital status: Current Living Situation: Alone Current Living Situation Comment: Lives at home with daugther, son in law and grandchildren Feels Safe at Home: Yes Assistive Devices: CPAP Allergies Allergies Allergy/AdvReac Type Severity Reaction Status Date / Time GIN Inhibitors Allergy Unknown UNK Verified 04/12/22 08:01 cat dander Allergy Unknown UNK Verified 04/12/22 08:01 codeine Allergy Unknown Nausea Verified 04/12/22 08:01 house dust Allergy Unknown Unknown Verified 04/12/22 08:01 hydrocodone Allergy Unknown Nausea Verified 04/12/22 08:01 meperidine Allergy Unknown Nausea Verified 04/12/22 08:01 morphine Allergy Unknown Nausea Verified 04/12/22 08:01 pioglitazone Allergy Unknown UNK Verified 04/12/22 08:01 nickel AdvReac Intermediate Redness of Verified 04/12/22 08:01 Skin Cockroach Allergy Unknown UNK Uncoded 04/12/22 08:01 Unclassified Drugs Allergy Unknown "ALLERGIC Uncoded 04/12/22 08:01 TO TREES" Home Meds Home Medications Medication Instructions Recorded Confirmed allopurinol 100 mg tablet 100 mg PO BID 09/28/18 04/12/22 aspirin 81 mg tablet,delayed 81 mg PO QAM 09/28/18 04/12/22 release (Tiara Low Dose Aspirin) atorvastatin 40 mg tablet 40 mg PO HS 09/28/18 04/12/22 benzonatate 100 mg capsule 100 mg PO TID PRN Cough 09/28/18 04/12/22 dabigatran etexilate 150 mg 150 mg PO BID 09/28/18 04/12/22 capsule (Pradaxa) diltiazem HCl 360 mg capsule,24 360 mg PO QAM 09/28/18 04/12/22 hr,extended release empagliflozin 25 mg tablet 25 mg PO QAM 09/28/18 04/12/22 gabapentin 600 mg tablet 600 mg PO BID 09/28/18 04/12/22 gemfibrozil 600 mg tablet 600 mg PO BID 09/28/18 04/12/22 ipratropium 20 mcg-albuterol 100 1 puff inhalation QID 09/28/18 04/12/22 mcg/actuation mist for inhalation levothyroxine 112 mcg tablet 112 mcg PO QAM 09/28/18 04/12/22 metoprolol tartrate 25 mg tablet 25 mg PO BID 09/28/18 04/12/22 mometasone 50 mcg/actuation nasal 2 spray intranasal QAM 09/28/18 04/12/22 spray diclofenac sodium 1 % topical gel 2 g topical QID 12/09/18 04/12/22 albuterol sulfate 2.5 mg inhalation Q4H PRN Wheezing 02/19/19 04/12/22 ascorbic acid (vitamin C) 1,000 mg 1 g PO QAM 08/01/20 04/12/22 tablet cholecalciferol (vitamin D3) 25 25 mcg PO QAM 08/01/20 04/12/22 mcg (1,000 unit) capsule coenzyme Q10 10 mg capsule 10 mg PO QAM 08/01/20 04/12/22 glucosamine 375 [id number] 1 tab PO BID 08/01/20 04/12/22 no1 500 mg-C 15 mg-donald 0.5 mg tablet magnesium 200 mg tablet 200 mg PO QAM 08/01/20 04/12/22 potassium chloride 10 mEq 10 meq PO HS 08/01/20 04/12/22 capsule,extended release zinc 50 mg tablet 50 mg PO QAM 08/01/20 04/12/22 blood-glucose sensor (Dexcom G6 #3 ea 10/08/20 12/23/21 Sensor) blood-glucose transmitter (Dexcom #1 ea 10/08/20 12/23/21 G6 Transmitter) turmeric 400 mg capsule 400 mg PO QAM 12/23/21 04/12/22 famotidine 20 mg tablet (Pepcid) 20 mg PO BID 04/07/22 04/12/22 furosemide 40 mg tablet (Lasix) 40 mg PO BID 04/07/22 04/12/22 Previous Rx's Medication Instructions Recorded blood sugar diagnostic (OneTouch #100 ea 01/09/21 Ultra Blue Test Strip) BD Ultra-Fine Short Pen Needle 31 #400 ea 05/06/21 gauge x 5/16" (pen needle, diabetic) Lantus Solostar U-100 Insulin 100 55 unit (0.55 mL) subcut BID 90 05/06/21 unit/mL (3 mL) subcutaneous pen days #105 mL (insulin glargine) Humalog KwikPen Insulin 100 150 unit (1.5 mL) subcut DAILY 10/07/21 unit/mL subcutaneous (insulin Hyperglycemia 14 days #30 mL lispro) Results & Data (ED) Vital Signs Vital Signs - 24 hr 04/16/22 00:28 Temperature 36.5 C Temperature Source Temporal Artery Scan Pulse Rate 81 Respiratory Rate 18 Respiratory Effort / Characteristics Non-Labored Spontaneous Respiratory Depth Normal Blood Pressure 121/64 Blood Pressure Mean 83 Pulse Oximetry 96 Oxygen Delivery Method Room Air Sepsis Recent Fever Within 48 Hours No Sepsis New/Unexplained Change in Mental Status No Sepsis Action Taken by Nursing No Action Required Laboratory Data Result diagrams: 04/16/22 01:03 04/16/22 01:03 Lab Results 04/16/22 04/16/22 04/16/22 Range/Units 01:03 01:03 01:03 WBC 10.60 (4.8-10.8) K/ul RBC 4.67 (3.93-5.22) M/uL Hgb 14.1 (12.0-16.0) g/dl Hct 43.3 (34.1-44.9) % MCV 92.7 (80.0-100.0) fL MCH 30.2 (25.0-34.0) pg MCHC 32.6 (32.0-36.0) g/dL RDW Std Deviation 52.5 H (36.4-46.3) fL RDW Coeff of Faraz 15.4 H (11.5-14.5) % Plt Count 309 (130-400) K/uL MPV 10.1 (9.4-12.3) fL Immature Gran % (Auto) 0.4 % Neut % (Auto) 64.9 % Lymph % (Auto) 25.9 % [place] % (Auto) 6.4 % Eos % (Auto) 1.9 % Baso % (Auto) 0.5 % Neut # (Auto) 6.88 H (1.4-6.5) K/uL Lymph # (Auto) 2.75 (1.2-3.4) K/uL [place] # (Auto) 0.68 (0.24-0.82) K/uL Eos # (Auto) 0.20 (0-0.50) K/uL Baso # (Auto) 0.05 (0-0.2) K/uL Immature Gran # (Auto) 0.04 H (0.00-0.02) K/uL PT 12.5 H (9.0-12.0) Seconds INR 1.2 H (0.9-1.1) Sodium 145 (136-145) mmol/L Potassium 3.7 (3.5-5.1) mmol/L Chloride 108 H (98-107) mmol/L Carbon Dioxide 27 (21-32) mmol/L Anion Gap 10 (3-11) BUN 16 (6-23) mg/dl Creatinine 0.70 (0.6-1.2) mg/dl Est Cr Clr Drug Dosing 109.3 ml/min Est GFR ( Amer) 103.9 ml/min Est GFR (Non-Af Amer) 89.7 ml/min BUN/Creatinine Ratio 22.9 H (10-20) Glucose 153 H (70-99(Fasting)) mg/dl Calcium 8.7 (8.5-10.1) mg/dl Total Bilirubin 0.5 (0.2-1.0) mg/dl AST 18 (13-39) U/L ALT 27 (7-52) U/L Alkaline Phosphatase 107 H (34-104) U/L Total Protein 6.5 (6.0-8.3) gm/dl Albumin 3.7 (3.4-5.0) gm/dl Globulin 2.8 (2.5-4.0) gm/dl Albumin/Globulin Ratio 1.3 (0.9-2) Lipase 13 (11-82) U/L Discharge Plan Visit Data Chief Complaint: Rectal Bleed Stated Complaint: RECTAL BLEEDING,COLONOSTOMY ON TUESDAY ED Provider: Matthieu Odell Discharge Problem: Lower gastrointestinal hemorrhage Patient Disposition: Admitted As Inpatient Forms Stand Alone Forms: [facility] Prescriptions Prescriptions: No Action (DME) OneTouch Ultra Blue Test Strip Strip See Rx Instructions .ROUTE .MEDSUPPLY Qty: 100 3RF Rx Instructions: Test blood sugar 1 x daily (DME) pen needle, diabetic [BD Ultra-Fine Short Pen Needle] 31 gauge x 5/16" needle See Rx Instructions .ROUTE .MEDSUPPLY Qty: 400 3RF Rx Instructions: use 4 needles daily to inject insulin Lantus Solostar U-100 Insulin 100 unit/mL (3 mL) insulin pen 55 unit SUBCUT BID 90 Days Qty: 105 3RF insulin lispro [Humalog KwikPen Insulin] 100 unit/mL insulin pen 150 unit SUBCUT DAILY MDD 150 units 14 Days Qty: 30 0RF Rx Instructions: inject with meals per sliding scale up to TDD 150 cholecalciferol (vitamin D3) 25 mcg (1,000 unit) capsule 25 mcg PO QAM coenzyme Q10 10 mg capsule 10 mg PO QAM potassium chloride 10 mEq capsule, extended release 10 meq PO HS magnesium 200 mg tablet 200 mg PO QAM ascorbic acid (vitamin C) 1,000 mg tablet 1 g PO QAM [id number] mg tablet 1 tab PO BID zinc 50 mg tablet 50 mg PO QAM (DME) Dexcom G6 Transmitter Device See Rx Instructions .ROUTE .MEDSUPPLY Qty: 1 Rx Instructions: As directed (DME) Dexcom G6 Sensor Device See Rx Instructions .ROUTE .MEDSUPPLY Qty: 3 Rx Instructions: As directed turmeric 400 mg capsule 400 mg PO QAM atorvastatin 40 mg Tablet 40 mg PO HS gabapentin 600 mg Tablet 600 mg PO BID diltiazem HCl 360 mg capsule,extended release 24 hr 360 mg PO QAM allopurinol 100 mg Tablet 100 mg PO BID aspirin [Tiara Low Dose Aspirin] 81 mg Tablet,Delayed Release (Dr/Ec) 81 mg PO QAM benzonatate 100 mg Capsule 100 mg PO TID PRN (Reason: Cough) gemfibrozil 600 mg Tablet 600 mg PO BID mometasone 50 mcg/actuation [place],Non-Aerosol 2 spray INTRANASAL QAM levothyroxine 112 mcg Tablet 112 mcg PO QAM metoprolol tartrate 25 mg Tablet 25 mg PO BID dabigatran etexilate [Pradaxa] 150 mg Capsule 150 mg PO BID empagliflozin 25 mg Tablet 25 mg PO QAM ipratropium-albuterol 20-100 mcg/actuation mist 1 puff Inhalation QID albuterol sulfate 2.5 mg /3 mL (0.083 %) Solution For Nebulization 2.5 mg INHALATION Q4H PRN (Reason: Wheezing) diclofenac sodium 1 % gel 2 g topical QID famotidine [Pepcid] 20 mg Tablet 20 mg PO BID furosemide [Lasix] 40 mg Tablet 40 mg PO BID Referrals Referrals: Mohsen Vazquez MD [Primary Care Provider] -
[2022-04-16 01:18] LABS: Basophils # (auto) 0.05 K/uL (0-0.2); Basophils % (auto) 0.5 %; Eosinophils % (auto) 1.9 %; Hematocrit (blood only) 43.3 % (34.1-44.9); Hemoglobin 14.1 g/dl (12.0-16.0); Immature Granulocytes # (auto) 0.04 K/uL (0.00-0.02); Immature Granulocytes % (auto) 0.4 %; Lymphocytes # (auto) 2.75 K/uL (1.2-3.4); Lymphocytes % (auto) 25.9 %; Mean Corpuscular Hemoglobin 30.2 pg (25.0-34.0); Mean Corpuscular Hgb Conc 32.6 g/dL (32.0-36.0); Mean Corpuscular Volume 92.7 fL (80.0-100.0); Mean Platelet Volume 10.1 fL (9.4-12.3); Monocytes # (auto) 0.68 K/uL (0.24-0.82); Monocytes % (auto) 6.4 %; Neutrophils # (auto) 6.88 K/uL (1.4-6.5); Neutrophils % (auto) 64.9 %; Platelet Count 309 K/uL (130-400); RDW Coefficient of Variation 15.4 % (11.5-14.5); RDW Standard Deviation 52.5 fL (36.4-46.3); Red Blood Count 4.67 M/uL (3.93-5.22)
[2022-04-16 01:30] LABS: INR 1.2 (0.9-1.1); Prothrombin Time 12.5 Seconds (9.0-12.0)
[2022-04-16 01:41] LABS: Albumin Globulin Ratio 1.3 (0.9-2); Albumin Level 3.7 gm/dl (3.4-5.0); BUN Creatinine Ratio 22.9 (10-20); Bilirubin,Total 0.5 mg/dl (0.2-1.0); Calcium 8.7 mg/dl (8.5-10.1); Creatinine Clr Calc Pharmacy 109.3 ml/min; Est GFR (African American) 103.9 ml/min; Est GFR (Non-African American) 89.7 ml/min; Globulin 2.8 gm/dl (2.5-4.0); Potassium 3.7 mmol/L (3.5-5.1); Total Protein 6.5 gm/dl (6.0-8.3)
[2022-04-16] MEDS ORDERED: LAVAGE SOLUTION 4000ML PO STA (02:18)
[2022-04-16] MEDS ORDERED: ONDANSETRON INJ 2 MG/ML 2 ML VIAL IV PRN (04:08)
[2022-04-16] MEDS ORDERED: SODIUM CHLORIDE 0.9% 1000ML 1,000 ML IV SCH (04:08)
[2022-04-16] MEDS ORDERED: NITROGLYCERIN SL 0.4 MG/TAB TAB SL PRN (04:08)
[2022-04-16] MEDS ORDERED: ALBUTEROL 0.083% NEBU SOLN 3 ML VIAL INH PRN (04:08)
[2022-04-16] MEDS ORDERED: ACETAMINOPHEN 325 MG TAB PO PRN (04:08)
--- NOTE | 2022-04-16 05:02 | History and Physical Report ---
DATE OF ADMISSION: 04/16/2022. CHIEF COMPLAINT: Rectal bleed. HISTORY OF PRESENT ILLNESS: This is a 67-year-old female with past medical history significant for type 2 diabetes, chronic kidney disease stage III, hypothyroidism, hyperlipidemia, gout, polycystic ovarian syndrome, ovarian cancer in remission, COPD, sleep apnea, chronic atrial fibrillation, hypertension, morbid obesity, GERD, benign positional vertigo, depression with anxiety. Presents with rectal bleed. The patient says she had colonoscopy last Tuesday and she had three polyps removed and on the morning of 04/15/2022 when she woke up, she had a bloody bowel movement. Since then, she had several episodes and they are not stopping, that is the reason she came to the ER. Seems had an episode of rectal bleed in the ER. Hemoglobin is stable at 14.1. Hemodynamically stable. Denies any nausea or vomiting. Denies any abdominal discomfort. No chest pain, no shortness of breath, no cough, no dizziness, no headache, no blurred visions, no earache, no runny nose, no sore throat.Cady is on pradaxa for a fib took in the morning of 04/15 but didn't take evening dose. ALLERGIES: GIN INHIBITORS, CAT DANDER, CODEINE, HOME DUST, HYDROCODONE, MEPERIDINE, MORPHINE, PIOGLITAZONE, NICKEL, COCKROACH. PAST MEDICAL HISTORY: As mentioned above. PAST SURGICAL HISTORY: Left breast lesion excision, dental surgery, hernia repair, cholecystectomy, bilateral debridement of skin and subcutaneous tissue. MEDICATIONS: As per [facility], the patient is on Jardiance 25 mg p.o. daily, diltiazem ER 360 mg p.o. daily, levothyroxine 112 mcg p.o. daily, benzonatate 100 mg p.o. t.i.d. p.r.n., allopurinol 100 mg p.o. b.i.d., ProAir two puffs inhalation q. 4 hours p.r.n., mometasone furoate 1-2 sprays in each nostril daily, atorvastatin 40 mg p.o. daily, gemfibrozil 600 mg p.o. b.i.d., gabapentin 600 mg p.o. b.i.d., Lasix 40 mg p.o. daily p.r.n., famotidine 20 mg p.o. b.i.d., Combivent Respimat 1 puff inhalation q. 4 hours, metoprolol tartrate 25 mg p.o. b.i.d., CPAP, Pradaxa 150 mg p.o. b.i.d., Humalog 35 units in the morning plus sliding scale 15 units at 2:00 p.m. plus sliding scale and 30 units in the evening plus sliding scale, Lantus 50 units b.i.d., bupropion SR 150 mg p.o. daily, aspirin 81 mg p.o. daily. FAMILY HISTORY: Significant for no family history on file. SOCIAL HISTORY: . Former smoker, quit in 1976, smoked 0.01 pack a day for one year. Alcohol, rarely. No drug use. REVIEW OF SYSTEMS: As per HPI. Rest of review of systems is negative. PHYSICAL EXAMINATION: GENERAL: The patient is morbidly morbid obese, not in acute distress. VITAL SIGNS: Temperature 36.5, pulse 81, respiratory rate 18, blood pressure 121/64, oxygen 96% on room air. HEENT: Pupils equal, round, and reactive to light. Oral mucosa moist. NECK: No JVD. No neck masses seen. CARDIOVASCULAR: S1 and S2 heard. Regular rate and rhythm. No murmur, no gallop. RESPIRATORY SYSTEM: Normal AP diameter. No accessory muscle use. No wheezing, no crackles. ABDOMEN: Soft, bowel sounds present, nontender, no distention. CENTRAL NERVOUS SYSTEM: Alert and oriented. No facial droop. Speech is clear. Obeys simple commands. Insight is good. Moves extremities. EXTREMITIES: No edema, no erythema. LABORATORY DATA: WBC 10.6, hemoglobin 14.1, hematocrit 43.3, platelets 309. PT 12.5, INR 1.2. Sodium 145, potassium 3.7, chloride 108, bicarbonate 27, BUN 16, creatinine 0.7, serum glucose 153, calcium 8.7, total bilirubin 0.5, AST 18, ALT 27, alkaline phosphatase 107. Lipase 13. SARS-CoV-2 rapid test negative. ASSESSMENT AND PLAN: This is a 67-year-old female who presents with rectal bleed. 1. Rectal bleed: The patient had colonoscopy last Tuesday with three polyps taken out. Hemoglobin is stable. Hemodynamics stable. Follow H and H q. 6 hours. Blood consent obtained. GI consult placed by ER. Monitor in the tele floor. 2. Sleep apnea: Will continue CPAP at bedtime. 3. Diabetes: Will cut back on Lantus to 25 units b.i.d. as patient is npo and place on insulin sliding scale. Follow blood sugars, follow HbA1c levels. 4. Chronic kidney disease stage III: Presently with creatinine of 0.7. Will follow the labs. 5. Hypothyroidism: Continue Synthroid. 6. Hyperlipidemia: Continue statin. 7. History of gout: Continue allopurinol. 8. History of chronic obstructive pulmonary disease: Continue home inhalers. 9. History of chronic atrial fibrillation: On metoprolol and diltiazem. Holding Pradaxa. 10. Morbid obesity: Needs counseling. 11. Deep venous thrombosis prophylaxis: Sequential compression devices for now. DISPOSITION: Will monitor the patient in the tele floor. Expect to discharge home and follow up with family doctor. PT, OT prior to discharge. Social service to help with discharge planning. Job ID: [id number] [facility]
[2022-04-16 05:59] LABS: Basophils # (auto) 0.08 K/uL (0-0.2); Basophils % (auto) 0.6 %; Eosinophils # (auto) 0.21 K/uL (0-0.50); Eosinophils % (auto) 1.7 %; Hematocrit (blood only) 43.1 % (34.1-44.9); Hemoglobin 13.7 g/dl (12.0-16.0); Immature Granulocytes # (auto) 0.05 K/uL (0.00-0.02); Immature Granulocytes % (auto) 0.4 %; Lymphocytes % (auto) 29.7 %; Mean Corpuscular Hemoglobin 29.7 pg (25.0-34.0); Mean Corpuscular Hgb Conc 31.8 g/dL (32.0-36.0); Mean Corpuscular Volume 93.5 fL (80.0-100.0); Mean Platelet Volume 10.3 fL (9.4-12.3); Monocytes # (auto) 0.84 K/uL (0.24-0.82); Monocytes % (auto) 6.7 %; Neutrophils # (auto) 7.59 K/uL (1.4-6.5); Neutrophils % (auto) 60.9 %; Platelet Count 331 K/uL (130-400); RDW Coefficient of Variation 15.4 % (11.5-14.5); RDW Standard Deviation 52.9 fL (36.4-46.3); Red Blood Count 4.61 M/uL (3.93-5.22); White Blood Count 12.47 K/ul (4.8-10.8)
[2022-04-16 06:21] LABS: BUN Creatinine Ratio 20.3 (10-20); Calcium 8.9 mg/dl (8.5-10.1); Creatinine Clr Calc Pharmacy 103.4 ml/min; Est GFR (African American) 97.2 ml/min; Est GFR (Non-African American) 83.8 ml/min; Magnesium 2.1 mg/dl (1.7-2.4); Potassium 3.6 mmol/L (3.5-5.1)
[2022-04-16 07:05] LABS: Estimated Average Glucose 154 mg/dl
[2022-04-16] MEDS: LEVOTHYROXINE SODIUM 112 MCG TABLET PO SCH (07:21)
[2022-04-16] MEDS: Albuterol HFA 8 GM Inhaler (Combivent Respimat P&T Subs) INH SCH ×4 (07:21→19:16)
[2022-04-16] MEDS: INSULIN ASPART PER UNIT SC SCH ×4 (07:23→21:48)
[2022-04-16] MEDS ORDERED: INSULIN ASPART PER UNIT SC SCH (07:30)
[2022-04-16] MEDS: Ipratropium HFA Inhaler (Combivent Respimat P&T Subs) INH SCH ×4 (07:30→19:17)
[2022-04-16] MEDS ORDERED: LANTUS PER UNIT CHARGE SQ SCH ×2 (09:00→21:00)
[2022-04-16] MEDS ORDERED: [UNRECOGNIZED DRUG - REMARK] INTNAS SCH (09:00)
[2022-04-16] MEDS ORDERED: IPRATROPIUM BROMIDE/ALBUTEROL respimat INH INH SCH (09:00)
[2022-04-16] MEDS ORDERED: PHARMACY GLYCEMIC MGMT CONSULT PRN (09:19)
[2022-04-16] MEDS: METOPROLOL TARTRATE 25 MG TAB PO SCH ×2 (09:51→19:56)
[2022-04-16] MEDS: dilTIAZem HCL 180 MG CAPCR PO SCH (09:51)
[2022-04-16] MEDS: FLUTICASONE PROPIONATE NA SPR 16 GM BTL SCH (09:51)
[2022-04-16] MEDS: PANTOprazole 40 MG in SYRINGE 0 ML IV SCH ×2 (09:51→21:49)
[2022-04-16] MEDS: GABAPENTIN 600 MG TAB PO SCH ×2 (09:52→19:57)
[2022-04-16] MEDS: allopurinoL 100 MG TAB PO SCH ×2 (09:52→19:56)
--- NOTE | 2022-04-16 10:03 | Gastrointestinal Consultation ---
Date of Consultation April 16, 2022 Assessment & Plan (1) Lower gastrointestinal hemorrhage: -Continue to monitor H/H -Keep NPO -Colonoscopy today for further evaluation Of note, she is scheduled for outpatient CT for further evaluation of the right side of her colon as her colonoscopy was incomplete. Supervising Physician Co-Signing Physician Notes I personally evaluated the patient and agree with the findings as documented by Iveth Paz, VALORIE Exam: Constitutional: WD/WN, vitals as above General: EOM intact bilaterally Neck: normal visual inspection Respiratory: normal respiratory effort, lungs clear to auscultation Cardiovascular: RRR, no murmur, no edema Gastrointestinal: abdomennormal to inspection, nondistended, soft, nontender, no hepatosplenomegaly Musculoskeletal: no cyanosis, head normal to inspection Skin: no rashes, warm and dry Neurologic: moves all extremities Psychiatric: A and O x3, euthymic affect proceed with colonoscopy. risks/benefits and procedure discussed with patient, who agrees to proceed History of Present Illness Reason for Consultation: Rectal bleeding Attending Physician: Pb Boucher MD History of Present Illness Patient is a 67 yo female with PMH of atrial fibrillation on Pradaxa, ovarian cancer, DM2, renal lesion, liver cell injury, liver lesion, GERD, NAVI, COPD, HLD, HTN who had a colonoscopy on 04/12/22 for CRC surveillance. She had 3 polyps removed, 2 of which were tubular adenomas, all less than 1 cm, removed with a hot snare. The procedure was aborted as the endoscopist was unable to advance the scope beyond the transverse colon. She was scheduled for an outpatient CT scan for further evaluation of the right side of the colon. She held her Pradaxa for 24 hours and experienced no bleeding, then resumed the anticoagulant. She notes that on 04/15/22 she developed a significant amount of BRBPR that she could not get to stop. She called our office and was advised to seek ED evaluation. Her H/H was 14.1/43.3 upon presentation but she notes she continued to bleed in the ED with large volume BRBPR. Her H/H is now 13.7/43.1. She denies abdominal pain. She was admitted to the hospital and completed a bowel prep. This stopped her rectal bleeding. She is asymptomatic at the present time. She offers no further complaints. No pertinent family history. Allergies Allergy/AdvReac Type Severity Reaction Status Date / Time GIN Inhibitors Allergy Unknown UNK Verified 04/16/22 14:14 cat dander Allergy Unknown UNK Verified 04/16/22 14:14 codeine Allergy Unknown Nausea Verified 04/16/22 14:14 house dust Allergy Unknown Unknown Verified 04/16/22 14:14 hydrocodone Allergy Unknown Nausea Verified 04/16/22 14:14 meperidine Allergy Unknown Nausea Verified 04/16/22 14:14 morphine Allergy Unknown Nausea Verified 04/16/22 14:14 pioglitazone Allergy Unknown UNK Verified 04/16/22 14:14 tree and shrub pollen Allergy Unknown Unknown Verified 04/16/22 14:14 nickel AdvReac Intermediate Redness of Verified 04/16/22 14:14 Skin Cockroach Allergy Unknown UNK Uncoded 04/16/22 03:02 Home Medications Medication Instructions Recorded Confirmed Type allopurinol 100 mg tablet 100 mg PO BID 09/28/18 04/16/22 History aspirin 81 mg tablet,delayed 81 mg PO QAM 09/28/18 04/16/22 History release (Tiara Low Dose Aspirin) atorvastatin 40 mg tablet 40 mg PO HS 09/28/18 04/16/22 History benzonatate 100 mg capsule 100 mg PO TID PRN Cough 09/28/18 04/16/22 History dabigatran etexilate 150 mg 150 mg PO BID 09/28/18 04/16/22 History capsule (Pradaxa) diltiazem HCl 360 mg capsule,24 360 mg PO QAM 09/28/18 04/16/22 History hr,extended release empagliflozin 25 mg tablet 25 mg PO QAM 09/28/18 04/16/22 History gabapentin 600 mg tablet 600 mg PO BID 09/28/18 04/16/22 History gemfibrozil 600 mg tablet 600 mg PO BID 09/28/18 04/16/22 History ipratropium 20 mcg-albuterol 100 1 puff inhalation QID 09/28/18 04/16/22 History mcg/actuation mist for inhalation levothyroxine 112 mcg tablet 112 mcg PO QAM 09/28/18 04/16/22 History metoprolol tartrate 25 mg tablet 25 mg PO BID 09/28/18 04/16/22 History mometasone 50 mcg/actuation nasal 2 spray intranasal QAM 09/28/18 04/16/22 History spray diclofenac sodium 1 % topical gel 2 g topical QID 12/09/18 04/16/22 History albuterol sulfate 2.5 mg inhalation Q4H PRN Wheezing 02/19/19 04/16/22 History ascorbic acid (vitamin C) 1,000 mg 1 g PO QAM 08/01/20 04/16/22 History tablet cholecalciferol (vitamin D3) 25 25 mcg PO QAM 08/01/20 04/16/22 History mcg (1,000 unit) capsule coenzyme Q10 10 mg capsule 10 mg PO QAM 08/01/20 04/16/22 History glucosamine 375 [id number]-zwiznjhgz-nkh 1 tab PO BID 08/01/20 04/16/22 History no1 500 mg-C 15 mg-donald 0.5 mg tablet magnesium 200 mg tablet 200 mg PO QAM 08/01/20 04/16/22 History potassium chloride 10 mEq 10 meq PO HS 08/01/20 04/16/22 History capsule,extended release zinc 50 mg tablet 50 mg PO QAM 08/01/20 04/16/22 History Lantus Solostar U-100 Insulin 100 55 unit (0.55 mL) subcut BID 90 05/06/21 04/16/22 Rx unit/mL (3 mL) subcutaneous pen days #105 mL (insulin glargine) Humalog KwikPen Insulin 100 150 unit (1.5 mL) subcut DAILY 10/07/21 04/16/22 Rx unit/mL subcutaneous (insulin Hyperglycemia 14 days #30 mL lispro) turmeric 400 mg capsule 400 mg PO QAM 12/23/21 04/16/22 History famotidine 20 mg tablet (Pepcid) 20 mg PO BID 04/07/22 04/16/22 History furosemide 40 mg tablet (Lasix) 40 mg PO BID 04/07/22 04/16/22 History Patient History Medical History Atrial fibrillation with rapid ventricular response (07/14/14) - follows w/ dr norris last visit 1 yr ago- takes pradaxa COPD (chronic obstructive pulmonary disease) Depression Diabetic neuropathy GERD (gastroesophageal reflux disease) Gout HLD (hyperlipidemia) HTN (hypertension) Hx of ovarian cancer 2019- surgical intervention, no chemo or radiation-[facility] [place] Hypothyroid Nausea and vomiting after administration of anesthetic agent NAVI (obstructive sleep apnea) cpap Surgical History History of cholecystectomy History of hernia repair during hysterectomy S/P appendectomy during hysterectomy S/P hysterectomy Status post colonoscopy with polypectomy Family History Father Myocardial infarction Coronary heart disease Diabetes Mother Complication of surgery Diabetes Sister Diabetes Sister Diabetes Brother Diabetes "Pre-diabetic" Sister Diabetes Sister Gestational diabetes Grandmother (Paternal) Diabetes Grandmother (Maternal) Diabetes Social History Smoking Status: Former smoker Years Smoked: 1; Cigarettes Per Day: 0; Second Hand Exposure: No; Hx Alcohol Use: No Hx Substance Use: No Preferred Language: [place] Communication Ability: Effective College Advisor Required: No Beliefs That Will Affect Care: None marital status: Current Living Situation: Alone Current Living Situation Comment: Lives at home with daugther, son in law and grandchildren Other Information That Helps Us Care for You: No Feels Safe at Home: Yes Safety Concerns: Feels Safe At This Time Assistive Devices: BiPap and Walker Review of Systems Constitutional: no fever and no chills Respiratory: no cough and no dyspnea Cardiovascular: no chest pain Gastrointestinal: + blood in stools (now resolved); no abdominal pain and no diarrhea/loose stools Integumentary: no problem reported Psychiatric: no problem reported Physical Exam Constitutional: well developed Respiratory: normal respiratory effort, lungs clear to auscultation Cardiovascular: Rate/Rhythm: regular rate Gastrointestinal (Abdomen): Inspection/Auscultation: abdomen normal to inspection and normal bowel sounds; abdomen not distended Musculoskeletal: Head/Neck/Chest: normocephalic Psychiatric: Orientation: alert and oriented x 3 Results & Data ([facility]) Vital Signs (Past 12 Hours) Vital Signs Temp Pulse Pulse Resp BP BP Pulse Ox 04/16/22 08:11 74 19 138/86 96 04/16/22 08:10 36.7 C 04/16/22 08:34 36.7 C 76 14 138/86 96 04/16/22 06:29 98 04/16/22 04:08 98 04/16/22 06:25 75 18 132/74 95 04/16/22 04:20 76 18 95 04/16/22 04:10 77 16 94 04/16/22 04:00 67 22 95 04/16/22 03:50 81 18 96 04/16/22 03:40 72 16 95 04/16/22 03:30 71 22 95 04/16/22 03:20 75 19 97 04/16/22 03:10 71 19 95 04/16/22 03:00 71 19 93 04/16/22 02:50 76 19 96 04/16/22 02:40 61 21 94 04/16/22 02:30 70 17 93 04/16/22 02:20 66 15 95 04/16/22 02:10 67 15 95 04/16/22 02:01 67 16 95 04/16/22 04:13 82 18 128/70 99 04/16/22 00:28 36.5 C 81 18 121/64 96 O2 Del Method 04/16/22 08:11 Room Air 04/16/22 08:10 04/16/22 08:34 Room Air 04/16/22 06:29 Room Air 04/16/22 04:08 04/16/22 06:25 Room Air 04/16/22 04:20 04/16/22 04:10 04/16/22 04:00 04/16/22 03:50 04/16/22 03:40 04/16/22 03:30 04/16/22 03:20 04/16/22 03:10 04/16/22 03:00 04/16/22 02:50 04/16/22 02:40 04/16/22 02:30 04/16/22 02:20 04/16/22 02:10 04/16/22 02:01 04/16/22 04:13 Room Air 04/16/22 00:28 Room Air PG Care Time/CCT Total # of Minutes Spent Total Time Spent with Patient: Total time spent is greater than 50% in coordination of care (as documented) at patient's floor/unit and/or counseling patient: Coding Level of Care Code 39191 Inpt Consult Level 4 Diagnoses Lower gastrointestinal hemorrhage K92.2
[2022-04-16 10:47] LABS: Appearance Urine Clear (Clear); Bilirubin Urine Negative (Negative); Blood Urine Negative (Negative); Color Urine Yellow; Glucose Urine UA 2+ (Negative); Ketones Urine Negative (Negative); Leukocyte Esterase Urine Negative (Negative); Nitrite Urine Negative (Negative); Protein Urine Negative (Negative); Specific Gravity Urine 1.007 (1.000-1.030); Urobilinogen Urine Negative (Negative)
--- NOTE | 2022-04-16 10:56 | Pharmacy Report ---
Pharmacy Glycemic Short Note 2 - Date of Service April 16, 2022 - Glycemic Short BSG Results (Last 24 hours): 04/16/22 04/16/22 04/16/22 01:03 05:38 07:23 Glucose 153 H 139 H POC Glucose 143 H OUTPATIENT ANTIDIABETIC REGIMEN: * Jardiance 25mg daily * Humalog SSI TIDWM * Lantus 55units BID HbA1C: 7% ASSESSMENT: * Pt is a 67 YO female with a history of DM2 presenting with lower GI bleed with plan for colonoscopy today. Pharmacy consulted to assist with glycemic management in inpatient setting. * Currently NPO for colonoscopy. Other stressors stable. * Lantus 25 units this AM (~50% reduction), and Novolog q6 while NPO (~wt/stress 3) while NPO. Plan for HS Lantus scale. PLAN FOR INPATIENT GLYCEMIC CONTROL: * Hold outpatient oral diabetes medications * Basal insulin * Lantus 25 units this AM, hs scale * Bolus insulin * NovoLog per scale ACHS or Q6hrs while NPO * Goal Range: Low 110 mg/dL - High 140 mg/dL * Correction Factor: 20 mg/dL/unit * Nutritional / Prandial insulin per carb ratio of 1 unit per 6 grams CHO consumed
[2022-04-16 11:01] LABS: Hematocrit (blood only) 38.5 % (34.1-44.9); Hemoglobin 12.4 g/dl (12.0-16.0)
--- NOTE | 2022-04-16 14:36 | Anesthesiology Consultation ---
Date of Service April 16, 2022 Assessment & Plan ASA ASA3 Proposed Anesthesia Anesthesia Type: MAC Risk / Benefits Reviewed With: PT / POA / Parent / Guardian, Accepts Plan and Informed Consent Obtained History Surgery Operation Date: 04/16/22 16:45 Proposed Procedures p Colonoscopy Dr. Marie Salazar MD Height/Weight Height: 5 ft 4 in Weight: 140 kg Allergies Allergy/AdvReac Type Severity Reaction Status Date / Time GIN Inhibitors Allergy Unknown UNK Verified 04/16/22 14:14 cat dander Allergy Unknown UNK Verified 04/16/22 14:14 codeine Allergy Unknown Nausea Verified 04/16/22 14:14 house dust Allergy Unknown Unknown Verified 04/16/22 14:14 hydrocodone Allergy Unknown Nausea Verified 04/16/22 14:14 meperidine Allergy Unknown Nausea Verified 04/16/22 14:14 morphine Allergy Unknown Nausea Verified 04/16/22 14:14 pioglitazone Allergy Unknown UNK Verified 04/16/22 14:14 tree and shrub pollen Allergy Unknown Unknown Verified 04/16/22 14:14 nickel AdvReac Intermediate Redness of Verified 04/16/22 14:14 Skin Cockroach Allergy Unknown UNK Uncoded 04/16/22 03:02 Medications Home Medications Medication Instructions Recorded Confirmed Last Taken allopurinol 100 mg tablet 100 mg PO BID 09/28/18 04/16/22 04/11/22 aspirin 81 mg tablet,delayed 81 mg PO QAM 09/28/18 04/16/22 04/09/22 release (Tiara Low Dose Aspirin) atorvastatin 40 mg tablet 40 mg PO HS 09/28/18 04/16/22 04/10/22 benzonatate 100 mg capsule 100 mg PO TID PRN Cough 09/28/18 04/16/22 09/27/18 dabigatran etexilate 150 mg 150 mg PO BID 09/28/18 04/16/22 04/15/22 11:00 capsule (Pradaxa) diltiazem HCl 360 mg capsule,24 360 mg PO QAM 09/28/18 04/16/22 04/10/22 hr,extended release empagliflozin 25 mg tablet 25 mg PO QAM 09/28/18 04/16/22 04/08/22 gabapentin 600 mg tablet 600 mg PO BID 09/28/18 04/16/22 04/11/22 gemfibrozil 600 mg tablet 600 mg PO BID 09/28/18 04/16/22 04/10/22 ipratropium 20 mcg-albuterol 100 1 puff inhalation QID 09/28/18 04/16/22 04/11/22 mcg/actuation mist for inhalation levothyroxine 112 mcg tablet 112 mcg PO QAM 09/28/18 04/16/22 04/11/22 metoprolol tartrate 25 mg tablet 25 mg PO BID 09/28/18 04/16/22 04/11/22 mometasone 50 mcg/actuation nasal 2 spray intranasal QAM 09/28/18 04/16/22 04/11/22 spray diclofenac sodium 1 % topical gel 2 g topical QID 12/09/18 04/16/22 04/12/22 albuterol sulfate 2.5 mg inhalation Q4H PRN Wheezing 02/19/19 04/16/22 Unknown ascorbic acid (vitamin C) 1,000 mg 1 g PO QAM 08/01/20 04/16/22 04/09/22 tablet cholecalciferol (vitamin D3) 25 25 mcg PO QAM 08/01/20 04/16/22 04/09/22 mcg (1,000 unit) capsule coenzyme Q10 10 mg capsule 10 mg PO QAM 08/01/20 04/16/22 04/08/22 glucosamine 375 cw-ezrhzcubd-gms 1 tab PO BID 08/01/20 04/16/22 04/08/22 no1 500 mg-C 15 mg-donald 0.5 mg tablet magnesium 200 mg tablet 200 mg PO QAM 08/01/20 04/16/22 04/08/22 potassium chloride 10 mEq 10 meq PO HS 08/01/20 04/16/22 04/08/22 capsule,extended release zinc 50 mg tablet 50 mg PO QAM 08/01/20 04/16/22 04/08/22 Lantus Solostar U-100 Insulin 100 55 unit (0.55 mL) subcut BID 90 05/06/21 04/16/22 04/15/22 11:00 unit/mL (3 mL) subcutaneous pen days #105 mL (insulin glargine) Humalog KwikPen Insulin 100 150 unit (1.5 mL) subcut DAILY 10/07/21 04/16/2222 18:00 unit/mL subcutaneous (insulin Hyperglycemia 14 days #30 mL lispro) turmeric 400 mg capsule 400 mg PO QAM 12/23/21 04/16/22 04/08/22 famotidine 20 mg tablet (Pepcid) 20 mg PO BID 04/07/22 04/16/22 04/11/22 furosemide 40 mg tablet (Lasix) 40 mg PO BID 04/07/22 04/16/22 04/09/22 Active Medications Generic Name Dose Route Start Last Admin Trade Name Zena PRN Reason Stop Dose Admin Albuterol 1 puffs 04/16/22 07:00 04/16/22 12:08 Albuterol Hfa 8 Gm Inhaler (Combivent Respimat P&T Subs) INH 05/16/22 06:59 1 puffs QIDR CAMPOS Administration Allopurinol 100 mg 04/16/22 09:00 04/16/22 09:52 Allopurinol 100 Mg Tab PO 05/16/22 08:59 100 mg BID CAMPOS Administration Diltiazem HCl 360 mg 04/16/22 09:00 04/16/22 09:51 Diltiazem Hcl 180 Mg Capcr PO 05/16/22 08:59 360 mg QAM CAMPOS Administration Fluticasone Propionate 2 sprays 04/16/22 09:00 04/16/22 09:51 Fluticasone Propionate Na Spr 16 Gm Btl NA 05/16/22 08:59 2 sprays DAILY CAMPOS Administration Gabapentin 600 mg 04/16/22 09:00 04/16/22 09:52 Gabapentin 600 Mg Tab PO 05/16/22 08:59 600 mg BID CAMPOS Administration Sodium Chloride 1,000 mls @ 75 mls/hr 04/16/22 04:08 04/16/22 05:50 Nss 1000ml IV 04/16/22 17:27 75 mls/hr .[id number] CAMPOS Administration Pantoprazole Sodium 40 mg/ 10 mls @ 5 mls/min 04/16/22 09:00 04/16/22 09:51 Syringe IV 05/16/22 08:59 5 mls/min BID CAMPOS Administration Insulin Aspart 0 units 04/16/22 07:00 04/16/22 11:42 Insulin Aspart Per Unit SC 05/16/22 06:59 1 units Q6 CAMPOS Administration Ipratropium [place] 1 puffs 04/16/22 07:00 04/16/22 12:08 Ipratropium Hfa Inhaler (Combivent Respimat P&T Subs) INH 05/16/22 06:59 1 puffs QIDR CAMPOS Administration Levothyroxine Sodium 112 mcg 04/16/22 06:30 04/16/22 07:21 Levothyroxine Sodium 112 Mcg Tablet PO 05/16/22 06:29 112 mcg DAILYBB CAMPOS Administration Metoprolol Tartrate 25 mg 04/16/22 09:00 04/16/22 09:51 Metoprolol Tartrate 25 Mg Tab PO 05/16/22 08:59 25 mg BID CAMPOS Administration NPO Date Last Intake of Fluids: 04/16/22 Time Last Intake of Fluids: 10:00 Date Last Intake of Solids: 04/15/22 Time Last Intake of Solids: 18:00 Past Medical History Medical History Atrial fibrillation with rapid ventricular response (07/14/14) - follows w/ dr norris last visit 1 yr ago- takes pradaxa COPD (chronic obstructive pulmonary disease) Depression Diabetic neuropathy GERD (gastroesophageal reflux disease) Gout HLD (hyperlipidemia) HTN (hypertension) Hx of ovarian cancer 2018- surgical intervention, no chemo or radiation-[facility] [place] Hypothyroid Nausea and vomiting after administration of anesthetic agent NAVI (obstructive sleep apnea) cpap Exercise / Class Metabolic Activity II 4-5 Yardwork/Stairs/Walk up hill Past Family History Family History Father Myocardial infarction Coronary heart disease Diabetes Mother Complication of surgery Diabetes Sister Diabetes Sister Diabetes Brother Diabetes "Pre-diabetic" Sister Diabetes Sister Gestational diabetes Grandmother (Paternal) Diabetes Grandmother (Maternal) Diabetes Past Surgical History Surgical History History of cholecystectomy History of hernia repair during hysterectomy S/P appendectomy during hysterectomy S/P hysterectomy Status post colonoscopy with polypectomy Past Anesthesia History No Hx of Anesthesia Complications and No Family Hx of Anesthesia Complications History of PONV No Hx of PONV and No Hx of Motion Sickness Social History Smoking Status: Former smoker tobacco type: cigarettes Smoking cigarettes per day: 0 Hx Alcohol Use: No Hx Substance Use: No substance use type: does not use Review of Systems denies fever/cough/ colds/ chest pain/ SOB/ +NAVI on bipap denies NAVI Physical Exam Vital Signs Last Vital Signs Temp 36.1 C L 04/16/22 14:18 Pulse 82 04/16/22 14:18 Resp 18 04/16/22 14:18 BP 152/88 H 04/16/22 14:18 Pulse Ox 95 04/16/22 14:18 O2 Del Method 04/16/22 14:18 ENMT Mouth: no TMJ abnormality and no dentition abnormality Thyromental Distance: > or= 3.5 Finger Breadths Mallampati Class: II Neck neck extension not limited Respiratory normal respiratory effort; no respiratory distress Auscultation: lungs clear to auscultation bilaterally Cardiovascular Rate/Rhythm: regular rate and regular rhythm Neurologic moves all extremities Psychiatric Orientation: alert and oriented x 3 Testing Laboratory Results 04/16/22 10:51 04/16/22 05:38 PT 12.5 Seconds (9.0-12.0) H 04/16/22 01:03 INR 1.2 (0.9-1.1) H 04/16/22 01:03 Hemoglobin A1c 7.0 % (4.5-5.6) H 04/16/22 05:38 Urine Color Yellow 04/16/22 10:20 Urine Appearance Clear (Clear) 04/16/22 10:20 Urine pH 5.0 (4.5-7.5) 04/16/22 10:20 Ur Specific [place] 1.007 (1.000-1.030) 04/16/22 10:20 Urine Protein Negative (Negative) 04/16/22 10:20 Urine Glucose (UA) 2+ (Negative) H 04/16/22 10:20 Urine Ketones Negative (Negative) 04/16/22 10:20 Urine Nitrite Negative (Negative) 04/16/22 10:20 Ur Leukocyte Esterase Negative (Negative) 04/16/22 10:20 Blood Type O Positive 04/16/22 01:03 Antibody Screen NEGATIVE 04/16/22 01:03 04/16/22 07:23 POC Glucose 143 H
[2022-04-16] MEDS ORDERED: PROPOFOL IV EMULSION 10 MG/ML 20 ML VIAL IV ONE (15:46)
--- NOTE | 2022-04-16 15:53 | GI REPORT ---
Patient Name: Connie Araujo Procedure Date: 04/16/2022 3:10 PM Date of : 1955 Admit Type: Inpatient Age: 67 Gender: Female Attending MD: Manny Salazar MD Procedure: Colonoscopy Providers: Manny Salazar MD Referring MD: Mohsen Vazquez Indications: Hematochezia Medicines: Monitored Anesthesia Care Complications: No immediate complications. Estimated blood loss: None. Estimated Blood Loss: Estimated blood loss: none. Procedure: Pre-Anesthesia Assessment: - Prior Anticoagulants: The patient has taken Pradaxa (dabigatran), last dose was 1 day prior to procedure. - ASA Grade Assessment: III - A patient with severe systemic disease. After I obtained informed consent, the scope was passed under direct vision. Throughout the procedure, the patient's blood pressure, pulse, and oxygen saturations were monitored continuously. The Colonoscope was introduced through the anus with the intention of advancing to the cecum. The scope was advanced to the ascending colon before the procedure was aborted. Medications were given. The colonoscopy was performed without difficulty. The patient tolerated the procedure well. The colonoscopy was performed without difficulty. The patient tolerated the procedure well. The quality of the bowel preparation was adequate to identify polyps 6 mm and larger in size. Findings: A 4 mm polyp was found in the transverse colon. The polyp was sessile. The polyp was removed with a hot snare. Resection and retrieval were complete. To prevent bleeding after the polypectomy, one hemostatic clip was successfully placed. There was no bleeding at the end of the procedure. A 2 mm polyp was found in the descending colon. The polyp was sessile. The polyp was removed with a cold snare. Resection and retrieval were complete. Estimated blood loss: none. A single (solitary) ulcer was found in the rectum at site of previous polypectomy. Stigmata of recent bleeding were present including clot and visible vessel. For hemostasis, two hemostatic clips were successfully placed. There was no bleeding at the end of the procedure. Multiple small and large-mouthed diverticula were found in the sigmoid colon and descending colon. scope was advanced to ascending colon, unable to advance past this, procedure aborted. a small mucosal tear was noted in the ascending colon, hemostatic clip was placed for hemostasis. Impression: - One 4 mm polyp in the transverse colon, removed with a hot snare. Resected and retrieved. Clip was placed. - One 2 mm polyp in the descending colon, removed with a cold snare. Resected and retrieved. - A single (solitary) ulcer in the rectum. Clips were placed. - Diverticulosis in the sigmoid colon and in the descending colon. Recommendation: - [facility]. - Advance diet as tolerated today. - Await pathology results. -hold pradaxa for 2 days then can restart if stable Manny Salazar MD 04/16/2022 3:52:42 PM This report has been signed electronically. Note Initiated On: 04/16/2022 3:10 PM Number of Addenda: 0 I attest to the content of the Intraoperative Record and orders documented therein, exceptions below {[id number]}
--- NOTE | 2022-04-16 15:57 | Anesthesiology Progress Note ---
Date of Service April 16, 2022 Anesthesia Post Procedure Vital Signs Vital Signs: Temp Pulse Pulse Pulse Resp BP BP 04/16/22 14:18 36.1 C L 82 18 04/16/22 11:37 87 21 147/70 H 04/16/22 12:11 36.4 C L 04/16/22 12:08 80 18 04/16/22 08:11 74 19 138/86 04/16/22 08:10 36.7 C 04/16/22 08:34 36.7 C 76 14 138/86 04/16/22 06:29 04/16/22 04:08 04/16/22 06:25 75 18 132/74 04/16/22 04:20 76 18 04/16/22 04:10 77 16 04/16/22 04:00 67 22 04/16/22 03:50 81 18 04/16/22 03:40 72 16 04/16/22 03:30 71 22 04/16/22 03:20 75 19 04/16/22 03:10 71 19 04/16/22 03:00 71 19 04/16/22 02:50 76 19 04/16/22 02:40 61 21 04/16/22 02:30 70 17 04/16/22 02:20 66 15 04/16/22 02:10 67 15 04/16/22 02:01 67 16 04/16/22 04:13 82 18 128/70 04/16/22 00:28 36.5 C 81 18 121/64 BP Pulse Ox O2 Del Method 04/16/22 14:18 152/88 H 95 Room Air 04/16/22 11:37 04/16/22 12:11 04/16/22 12:08 96 Room Air 04/16/22 08:11 96 Room Air 04/16/22 08:10 04/16/22 08:34 96 Room Air 04/16/22 06:29 98 Room Air 04/16/22 04:08 98 04/16/22 06:25 95 Room Air 04/16/22 04:20 95 04/16/22 04:10 94 04/16/22 04:00 95 04/16/22 03:50 96 04/16/22 03:40 95 04/16/22 03:30 95 04/16/22 03:20 97 04/16/22 03:10 95 04/16/22 03:00 93 04/16/22 02:50 96 04/16/22 02:40 94 04/16/22 02:30 93 04/16/22 02:20 95 04/16/22 02:10 95 04/16/22 02:01 95 04/16/22 04:13 99 Room Air 04/16/22 00:28 96 Room Air Transfer of Care Handoff Completed per policy Notes Mental Status: alert / awake / arousable Patient Amnestic to Procedure: Yes Nausea / Vomiting: adequately controlled Pain: adequately controlled Airway Patency, RR, SpO2: stable & adequate BP & HR: stable & adequate Hydration State: stable & adequate Anesthetic Complications: no major complications apparent
[2022-04-16 17:00] LABS: Hematocrit (blood only) 37.9 % (34.1-44.9); Hemoglobin 12.1 g/dl (12.0-16.0)
[2022-04-16] MEDS ORDERED: Nursing to Pharmacy Communication SCH (18:30)
--- NOTE | 2022-04-16 19:30 | Communication Note ---
Date of Service: April 16, 2022 Patient was seen and evaluated in her room 230-2 after her colonoscopy. Chart reviewed. Patient feels well. Colonoscopy with multiple polyps which were r emoved and site of prior polypectomy showed evidence of recent bleed with exposed vessel--2 clips were placed. Will maintain on clear liquid diet and repeat CBC tomorrow. Full note to follow in AM.
[2022-04-16] MEDS ORDERED: ATORVASTATIN 40 MG TAB PO SCH (21:00)
[2022-04-17] MEDS: LEVOTHYROXINE SODIUM 112 MCG TABLET PO SCH (06:10)
[2022-04-17 06:42] LABS: Hemoglobin 12.1 g/dl (12.0-16.0); Mean Corpuscular Hemoglobin 29.7 pg (25.0-34.0); Mean Corpuscular Hgb Conc 31.8 g/dL (32.0-36.0); Mean Corpuscular Volume 93.4 fL (80.0-100.0); Mean Platelet Volume 10.2 fL (9.4-12.3); Platelet Count 265 K/uL (130-400); RDW Coefficient of Variation 15.2 % (11.5-14.5); Red Blood Count 4.07 M/uL (3.93-5.22); White Blood Count 8.87 K/ul (4.8-10.8)
[2022-04-17 07:09] LABS: BUN Creatinine Ratio 16.1 (10-20); Calcium 8.4 mg/dl (8.5-10.1); Creatinine Clr Calc Pharmacy 136.3 ml/min; Est GFR (African American) 111.8 ml/min; Est GFR (Non-African American) 96.5 ml/min; Potassium 3.4 mmol/L (3.5-5.1)
[2022-04-17] MEDS: Ipratropium HFA Inhaler (Combivent Respimat P&T Subs) INH SCH ×2 (07:20→10:35)
[2022-04-17] MEDS: Albuterol HFA 8 GM Inhaler (Combivent Respimat P&T Subs) INH SCH ×2 (07:21→10:35)
[2022-04-17] MEDS ORDERED: POTASSIUM CHLORIDE CRTAB 20 MEQ TABCR PO STA (07:51)
[2022-04-17] MEDS ORDERED: LANTUS PER UNIT CHARGE SQ SCH (09:00)
[2022-04-17] MEDS: INSULIN ASPART PER UNIT SC SCH ×2 (09:01→12:29)
[2022-04-17] MEDS: FLUTICASONE PROPIONATE NA SPR 16 GM BTL SCH (09:03)
[2022-04-17] MEDS: allopurinoL 100 MG TAB PO SCH (09:03)
[2022-04-17] MEDS: METOPROLOL TARTRATE 25 MG TAB PO SCH (09:03)
[2022-04-17] MEDS: dilTIAZem HCL 180 MG CAPCR PO SCH (09:03)
[2022-04-17] MEDS: GABAPENTIN 600 MG TAB PO SCH (09:03)
[2022-04-17] MEDS: PANTOprazole 40 MG in SYRINGE 0 ML IV SCH (09:09)
--- NOTE | 2022-04-17 12:27 | Discharge Summary ---
Date of Service April 17, 2022 Admission HPI Per Admitting Provider This is a 67-year-old female with past medical history significant for type 2 diabetes, chronic kidney disease stage III, hypothyroidism, hyperlipidemia, gout, polycystic ovarian syndrome, ovarian cancer in remission, COPD, sleep apnea, chronic atrial fibrillation, hypertension, morbid obesity, GERD, benign positional vertigo, depression with anxiety. Presents with rectal bleed. The patient says she had colonoscopy last Tuesday and she had three polyps removed and on the morning of 04/15/2022 when she woke up, she had a bloody bowel movement. Since then, she had several episodes and they are not stopping, that is the reason she came to the ER. Seems had an episode of rectal bleed in the ER. Hemoglobin is stable at 14.1. Hemodynamically stable. Denies any nausea or vomiting. Denies any abdominal discomfort. No chest pain, no shortness of breath, no cough, no dizziness, no headache, no blurred visions, no earache, no runny nose, no sore throat.Cady is on pradaxa for a fib took in the morning of 04/15 but didn't take evening dose. Principal Diagnosis Rectal bleed Post polypectomy bleed Discharge Exam Patient feels well. Reports having passed 1 old clot yesterday but no fresh bleeding. Denies chest pain, shortness of breath. Overnight with bradycardia but she was not wearing a CPAP and declined CPAP use (has it at home) On exam, appears well, pleasant, cooperative CV- regular rate and rhythm, no murmurs/rubs/gallops Pulm- breathing comfortably on room air Abd- obese, soft, non tender Extr- no edema Discharge Data Allergies Allergy/AdvReac Type Severity Reaction Status Date / Time GIN Inhibitors Allergy Unknown UNK Verified 04/16/22 14:14 cat dander Allergy Unknown UNK Verified 04/16/22 14:14 codeine Allergy Unknown Nausea Verified 04/16/22 14:14 house dust Allergy Unknown Unknown Verified 04/16/22 14:14 hydrocodone Allergy Unknown Nausea Verified 04/16/22 14:14 meperidine Allergy Unknown Nausea Verified 04/16/22 14:14 morphine Allergy Unknown Nausea Verified 04/16/22 14:14 pioglitazone Allergy Unknown UNK Verified 04/16/22 14:14 tree and shrub pollen Allergy Unknown Unknown Verified 04/16/22 14:14 nickel AdvReac Intermediate Redness of Verified 04/16/22 14:14 Skin Cockroach Allergy Unknown UNK Uncoded 04/16/22 03:02 Consultations 04/16/22 01:45 Consult Gastroenterology Routine 04/16/22 01:47 ED Decision to Admit Stat Procedures Performed Operation Date: 04/16/22 16:45 Actual Procedures p Colonoscopy Polypectomy - Manny Salazar MD Hospital Course (1) Rectal bleed: Plan Ms Connie Araujo is a 67 year old female with history of NAVI on CPAP, obesity with BMI of 52.8, atrial fibrillation on pradaxa, and remaining PMHx as above in HPI recently had an outpatient colonoscopy on 04/12. She presented to the ER on 04/16 after several episodes of bright red rectal bleeding. She was admitted for further evaluation. Her hemoglobin on presentation was 14 and it decreased down to 12 and remained stable. She underwent repeat colonoscopy 04/16 and the site of her prior polypectomy had stigmata of recent bleed and had an exposed vessel to which 2 clips were placed. She also had several additional polyps removed. Post colonoscopy she tolerated a clear then full liquid diet and will go home on a full liquid diet and slowly advance herself to a carb controlled/heart heatlhy diet. Per GI, she can resume her pradaxa in 2 days (04/19) if no further evidence of bleed. Her hemoglobin post repeat colonoscopy was steady and she had no further bleed. Patient was discharged home in stable condition with instructions to return to ER if she has recurrent rectal bleed (bright red blood per rectum). Total Time Total Time Spent Total Time Spent (In Minutes): 40 Discharge Plan Discharge Items Patient Disposition: Home - Self-Care Reason For Visit: RECTAL BLEED Discharge Diagnosis: Rectal bleed Post polypectomy bleed Acute blood loss anemia Condition on Discharge: Good Activity: Resume your previous activity Weightbearing: Full weightbearing Non-emergency contact: Primary Care Provider and Vocational Adviser Call non-emergency contact if: your symptoms worsen Follow-up/Referrals: Mohsen Vazquez MD [Primary Care Provider] - Diet: Carb Consistent or DM2 and Heart Healthy Addtl Attending Provider Instructions: You were admitted for rectal bleed after your colonoscopy. You had a repeat colonoscopy here which showed evidence of bleed at the site of your prior polyp removal. There was an exposed vessel and 2 clips were placed. During your repeat colonoscopy you did have several more polyps removed. You can resume your Pradaxa 04/19 if you have no further bleed You tolerated a full liquid diet in the hospital and can slowly advance your diet back to your home diet (Carb controlled and heart healthy diet) Please follow up with GI for results of your polyp pathology. Pending Studies at Discharge: Yes Studies:: Polyp pathology Stand-Alone Forms: My [facility], Smoking Cessation Medications and DC Order Prescriptions: Continued Lantus Solostar U-100 Insulin 100 unit/mL (3 mL) insulin pen 55 unit SUBCUT BID 90 Days Qty: 105 3RF insulin lispro [Humalog KwikPen Insulin] 100 unit/mL insulin pen 150 unit SUBCUT DAILY MDD 150 units 14 Days Qty: 30 0RF Rx Instructions: inject with meals per sliding scale up to TDD 150 cholecalciferol (vitamin D3) 25 mcg (1,000 unit) capsule 25 mcg PO QAM coenzyme Q10 10 mg capsule 10 mg PO QAM potassium chloride 10 mEq capsule, extended release 10 meq PO HS magnesium 200 mg tablet 200 mg PO QAM ascorbic acid (vitamin C) 1,000 mg tablet 1 g PO QAM [id number]-[id number]-[id number]-donald-bor [id number] mg tablet 1 tab PO BID zinc 50 mg tablet 50 mg PO QAM turmeric 400 mg capsule 400 mg PO QAM atorvastatin 40 mg Tablet 40 mg PO HS gabapentin 600 mg Tablet 600 mg PO BID diltiazem HCl 360 mg capsule,extended release 24 hr 360 mg PO QAM allopurinol 100 mg Tablet 100 mg PO BID aspirin [Tiara Low Dose Aspirin] 81 mg Tablet,Delayed Release (Dr/Ec) 81 mg PO QAM benzonatate 100 mg Capsule 100 mg PO TID PRN (Reason: Cough) gemfibrozil 600 mg Tablet 600 mg PO BID mometasone 50 mcg/actuation [place],Non-Aerosol 2 spray INTRANASAL QAM levothyroxine 112 mcg Tablet 112 mcg PO QAM metoprolol tartrate 25 mg Tablet 25 mg PO BID empagliflozin 25 mg Tablet 25 mg PO QAM ipratropium-albuterol 20-100 mcg/actuation mist 1 puff Inhalation QID albuterol sulfate 2.5 mg /3 mL (0.083 %) Solution For Nebulization 2.5 mg INHALATION Q4H PRN (Reason: Wheezing) diclofenac sodium 1 % gel 2 g topical QID dabigatran etexilate [Pradaxa] 150 mg Capsule 150 mg PO BID Qty: 14 0RF Rx Instructions: resume 04/19 if no further bleeding famotidine [Pepcid] 20 mg Tablet 20 mg PO BID furosemide [Lasix] 40 mg Tablet 40 mg PO BID Discharge Orders: Discharge Order (Routine); Ordered 04/17/22 Ordered By: Pb Cabello/Other Patient Handouts: Managing Type 2 Diabetes Admission Data Admit Date/Time: 04/16/22 02:49 Attending Provider: Pb Boucher Admit Provider: Damián Vallejo Primary Care Provider: Mohsen Vazquez Other Providers: Manny Salazar ; Damián Vallejo
== END 2022-04-17 13:05 | disposition home or self-care (01) ==
LOC: ED 00:26 → INTOOBSV 02:49 → EDINP 02:49 → 1E 04:13 → 2S 17:47

== ENCOUNTER 2022-12-25 16:05 | Observation (INO) ==
[2022-12-25] MEDS ORDERED: SODIUM CHLORIDE 0.9% 500 ML IV STA (16:10)
[2022-12-25] MEDS ORDERED: ONDANSETRON INJ 2 MG/ML 2 ML VIAL IV STA ×2 (16:10→18:35)
--- NOTE | 2022-12-25 16:10 | ED Triage Note ---
Date of Service December 25, 2022 History of Present Illness This patient was briefly evaluated while in triage. An abbreviated physical exam was performed. This patient is a 67-year-old Female who presents to the ED for evaluation of vomiting and diarrhea for the past 3 days. Has been trying to keep gatorade down, but throws most of it back up. Not eating much of anything. She is a diabetic. She has a dexcom, but states that it isn't working. Blood sugar was 278 per EMS. Has mild SOB and a weird feeling in her chest as well. Has a history of asthma, but has not been using her inhalers. Denies chest pain. She is on Pradaxa. The patient appeared very nauseous, tired, and was slow to answer questions in triage. BSG 260 in triage. While the patient was in the waiting room after her protocol labs had been drawn, the patient started complaining of worsening discomfort in her chest and abdomen. Her lactate had just come back elevated at that time at 2.3 and her troponin was slightly elevated at 18.0. EKG had not been done yet. Therefore, the patient was made a priority and taken back to a room for further evaluation. Physical Exam GENERAL: The patient appeared nauseous, tired, and was slow to answer questions. However, she was non-toxic and in no acute distress. HEENT: Pupils equal. No obvious scleral icterus. HEART: Regular rate and rhythm. LUNGS: Clear to auscultation. No accessory muscle use. ABDOMEN: Diffusely tender to palpation without guarding or rigidity. Initial orders for labs and / or imaging were placed and patient was placed in the waiting area until a bed is available. Please see further documentation for the full ED course. MDM / Impression Impression Impression: Nausea, vomiting, and diarrhea, Elevated troponin, Acute dehydration, Acute hypokalemia
[2022-12-25 16:47] LABS: Basophils # (auto) 0.01 K/uL (0-0.2); Basophils % (auto) 0.1 %; Hematocrit (blood only) 45.8 % (37.0-47.0); Hemoglobin 15.6 g/dl (12.0-16.0); Immature Granulocytes # (auto) 0.06 K/uL (0.01-0.20); Immature Granulocytes % (auto) 0.7 %; Lymphocytes # (auto) 1.23 K/uL (1.2-3.4); Lymphocytes % (auto) 13.9 %; Mean Corpuscular Hemoglobin 30.6 pg (25.0-34.0); Mean Corpuscular Hgb Conc 34.1 g/dL (32.0-36.0); Mean Corpuscular Volume 89.8 fL (80.0-100.0); Mean Platelet Volume 10.5 fL (9.4-12.4); Monocytes # (auto) 0.49 K/uL (0.11-0.59); Monocytes % (auto) 5.5 %; Neutrophils # (auto) 7.05 K/uL (1.40-6.50); Neutrophils % (auto) 79.8 %; Platelet Count 303 K/uL (130-400); RDW Coefficient of Variation 15.1 % (11.5-14.5); RDW Standard Deviation 49.6 fL (36.4-46.3); White Blood Count 8.84 K/ul (4.8-10.8)
[2022-12-25 17:05] LABS: Alanine Aminotransferase 24 U/L (7-52); Albumin Globulin Ratio 1.2 (0.9-2); Albumin Level 3.8 gm/dl (3.4-5.0); Alkaline Phosphatase 73 U/L (34-104); Anion Gap 13 (3-11); Aspartate Aminotransferase 29 U/L (13-39); BUN Creatinine Ratio 37.9 (10-20); Bilirubin,Total 0.7 mg/dl (0.2-1.0); Blood Urea Nitrogen 22 mg/dl (6-23); Calcium 8.9 mg/dl (8.6-10.3); Carbon Dioxide 28 mmol/L (21-32); Chloride 100 mmol/L (98-107); Est GFR (African American) 110.5 ml/min; Est GFR (Non-African American) 95.4 ml/min; Globulin 3.1 gm/dl (2.5-4.0); Glucose 278 mg/dl (70-99(Fasting)); Lipase 16 U/L (11-82); Potassium 3.1 mmol/L (3.5-5.1); Sodium 141 mmol/L (136-145); Total Protein 6.9 gm/dl (6.0-8.3)
[2022-12-25 17:16] LABS: INR 1.2 (0.9-1.1); Partial Thromboplastin Time 28.5 Seconds (21.0-31.0); Prothrombin Time 12.4 Seconds (9.0-12.0)
[2022-12-25 17:17] LABS: Influenza A virus by PCR Negative (Neg); Influenza B virus by PCR Negative (Neg); RSV by PCR Negative (Neg); SARS CoV2 RNA(COVID-19) Ceph NEGATIVE (Negative)
--- NOTE | 2022-12-25 18:21 | XRay Report ---
SINGLE VIEW CHEST CLINICAL HISTORY: Dyspnea. FINDINGS: An AP, portable, upright chest radiograph is compared to study dated 02/19/2019. The examina tion is degraded by portable technique and patient rotation. The heart is enlarged. There is mild pu lmonary vascular congestion. Atelectasis is noted at the lung bases. No large pleural effusion or pne umothorax is seen. The skeletal structures are osteopenic. The bony thorax is grossly intact. Arthrit ic change is seen in the shoulders. IMPRESSION: Cardiomegaly with mild pulmonary vascular congestion. ACT 112: Negative or not required by law. Electronically signed by: Jagjit Hagen M.D. 12/25/2022 6:20 PM
[2022-12-25] MEDS ORDERED: SODIUM CHLORIDE 0.9% 1000ML 500 ML IV ONE (18:36)
[2022-12-25] MEDS ORDERED: POTASSIUM CHLORIDE / WTR 10 MEQ/100 ML PLCT IV ONE (18:39)
[2022-12-25] MEDS ORDERED: SODIUM CHLORIDE 0.9% 1000ML 1,000 ML IV SCH (18:45)
[2022-12-25] MEDS ORDERED: OPTIRAY 320 500ml IV ONE (18:54)
--- NOTE | 2022-12-25 19:19 | CT Scan Report ---
CT SCAN OF THE ABDOMEN AND PELVIS WITH IV CONTRAST CLINICAL HISTORY: Generalized abdominal pain. Nausea and vomiting. Diarrhea. COMPARISON STUDY: Abdominal CT dated 04/20/2022. TECHNIQUE: Following the IV administration of 114 cc of Optiray 320, CT scan of the abdomen and pelv is is performed from the lung bases to the proximal femora. Images are reviewed in the axial, sagitta l, and coronal planes. IV contrast was administered without complication. A dose lowering technique w as utilized adhering to the principles of ALARA. The examination is degraded by large body habitus, a nd by streak artifact from the body wall abutting the CT gantry. There is also motion artifact. CT DOSE: 1842.11 mGy.cm FINDINGS: Lung bases: The heart is normal in size and without pericardial effusion. There are coronary artery c alcifications. A tiny hiatal hernia is noted. The lung bases are clear noting mild bibasilar scarring /atelectasis. Liver: The contrast-enhanced liver is enlarged, measuring 21.4 cm in length. There is geographic hepa tic steatosis. There is mild intrahepatic biliary ductal dilatation. The hepatic veins and portal vei ns are patent. Gallbladder: Surgically absent and clips in the gallbladder fossa. Spleen: Normal in size and attenuation. Pancreas: Moderately atrophic and grossly unremarkable. Adrenal glands: Unremarkable. Kidneys: The contrast enhanced kidneys are normal in size and without hydronephrosis. The kidneys enh ance symmetrically. Abdominal vasculature: The abdominal aorta is normal in course and caliber noting moderate atheroscle rotic calcification. Bowel: There is a large complex hernia in the right lower quadrant/pelvis. The more superior componen t of the hernia on image #298 contains a segment of colon. The larger and more inferiorly located com ponent contains several nonobstructed loops of small bowel. There is no evidence of obstruction. A 4. 5 x 2.5 cm pocket of peripherally enhancing fluid is seen anteriorly within the hernia sac on image # 426. There is advanced colonic diverticulosis without CT evidence of acute diverticulitis. The append ix is not identified and reported surgically absent. A 2.3 cm gastric lipoma is seen on image #233. Peritoneum: There is no intraperitoneal free air or abdominal ascites. Lymphadenopathy: None. Pelvic viscera: The bladder is normal as visualized. The uterus is surgically absent. No adnexal lesi on is seen. Skeletal structures: The skeletal structures are heterogeneously osteopenic. There is moderate lumbos acral spondylosis. No lytic or blastic lesions are seen. IMPRESSION: 1. No acute infectious or inflammatory findings are identified in the abdomen or pelvis. 2. There are large complex hernias in the right lower quadrant/pelvis as above which contain nonobstr ucted segments of small bowel and colon. 3. A small collection is seen within the anterior/inferior aspect of the larger and more inferior com ponent of the hernia. This is similar to the 04/20/2022 examination and may represent a postoperative seroma. The sterility of this fluid cannot be assessed by imaging and clinical correlation will be re quired. 4. The liver is enlarged with evidence of geographic steatosis. 5. Advanced colonic diverticulosis without CT evidence of acute diverticulitis. 6. Additional findings as above. ACT 112: Negative or not required by law. Electronically signed by: Jagjit Hagen M.D. 12/25/2022 7:17 PM
--- NOTE | 2022-12-25 19:35 | Emergency Department Note ---
Impression & Plan Nausea, vomiting, and diarrhea, Elevated troponin, Acute dehydration, Acute hypokalemia ED Provider Note INFORMANT: Patient ED PROVIDER(S): Garett Mckeon MD CHIEF COMPLAINT: Vomiting PLAN: Disposition: Admitted Condition: Good Outpatient prescription management: none Referral: MEDICAL DECISION MAKING: Patient presented because of nausea, vomiting and diarrhea. A work-up was initiated. She was found to have dehydration and chemistry panel. She had mild elevation of her lactate. Her troponin and BNP were also elevated. Potassium was mildly low. No white count. COVID testing negative. Patient's ECG did not show any acute findings. No pneumonia on chest x-ray. Patient was hydrated and treated with Zofran. CT imaging did not reveal any acute intra-abdominal findings. Chronic findings and hernia noted. Similar to prior. Patient's chest x-ray showed some pulmonary vascular congestion. Given the laboratory abnormalities and patient's illness further management in the hospital was deemed appropriate. Consultation was made with the hospitalist. Case discussed and diagnostics were reviewed. Patient was evaluated in the ER admitted for further management Discussed with manager operations. After review of the information above and other included data, I feel the patient requires admission. Triage Nursing notes reviewed and agree them. Vital Signs: reviewed and remarkable for hypertension Prior /Outside records reviewed: none Differential diagnosis: Etiologies such as gastroenteritis, food borne illness, infections, appendicitis, diverticulitis, inflammatory bowel disease, GI bleed, biliary pathology, as well as others were entertained. Diagnostics, as interpreted by me: ECG: Twelve-lead ECG reveals atrial fibrillation at [address] Left anterior fascicular block. Cardiac Monitoring: Cardiac monitoring ordered by me: The patient was placed on continuous cardiac monitoring and observed. A-fib 92 bpm. Medical decision rules: none Imaging studies: Chest x-ray reveals cardiomegaly and mild pulmonary vascular congestion. Limited interpretation of CT scan of the abdomen pelvis reveals no acute findings. Patient has complex hernias and a fluid collection which is similar to prior CT. I refer you to the EMR for further details. HPI: The patient is a 67year old female who presents to the Emergency Room with complaints of nausea, vomiting, diarrhea. This started 3 days ago and is persisting. The patient also notes the following associated symptoms, intermittent abdominal pains, fatigue, occasional cough. The patient has found no relieving factors. Current pain is rated as 6/10. Pt denies LOC, headache, fevers, chills, diaphoresis, visual changes, neck pain, chest pain, breathing difficulties, back pain, melena, hematochezia, urinary symptoms, numbness, weakness, lymphadenopathy, rash, or other complaints. PAST MEDICAL HISTORY: See Below, A-fib, diabetes, ovarian cancer PAST SURGICAL HISTORY: See Below, ovarian tumor removal, appendectomy SOCIAL HISTORY: See Below, retired HOME MEDICATIONS: See Below ALLERGIES: See Below VITALS: See Below PHYSICAL EXAMINATION: GENERAL: Awake, alert, uncomfortable-appearing, in no distress HENT: Normocephalic, atraumatic. Oropharynx with dry mucous membranes . EYES: Normal conjunctiva. Sclera non-icteric. NECK: Inspection normal. Non-tender. Supple. No nuchal rigidity. FROM. No ma sses. RESPIRATORY: Clear to auscultation. No wheezes. No rales. Normal respiratory effort. CARDIAC: Normal rate. Irregular rhythm. No murmurs. No rubs. Extremities warm and well perfused. Pulses equal. No JVD. GI: Soft, non-distended. Obese. Mild diffuse tenderness to palpation. No rebound or guarding. No masses. RECTAL: Deferred. MUSCULOSKELETAL: Atraumatic. Chest examination reveals no tenderness. The back is symmetrical on inspection without obvious abnormality. There is no CVA tenderness to palpation. No joint edema. LOWER EXTREMITIES: Calves are equal size bilaterally and non-tender. 1+ edema. No discoloration. NEURO: Normal sensorium. No sensory or motor deficits noted. SKIN: No rash or jaundice noted. Past Med/Surg History Medical History Atrial fibrillation with rapid ventricular response (07/14/14) COPD (chronic obstructive pulmonary disease) Depression Diabetic neuropathy GERD (gastroesophageal reflux disease) Gout HLD (hyperlipidemia) HTN (hypertension) Hx of ovarian cancer Hypothyroid Lower gastrointestinal hemorrhage Nausea and vomiting after administration of anesthetic agent NAVI (obstructive sleep apnea) Surgical History History of cholecystectomy History of hernia repair S/P appendectomy S/P hysterectomy Status post colonoscopy with polypectomy Family History Father Myocardial infarction Coronary heart disease Diabetes Mother Complication of surgery Diabetes Sister Diabetes Sister Diabetes Brother Diabetes Sister Diabetes Sister Gestational diabetes Grandmother (Paternal) Diabetes Grandmother (Maternal) Diabetes Social History Smoking Status: Former smoker Cigarettes Per Day: 0; Second Hand Exposure: No; Do You Dip or Chew Tobacco: No; Tobacco Cessation Education Requested by Patient: No Hx Alcohol Use: No Hx Substance Use: No Preferred Language: Thai Communication Ability: Effective Electrical Fitter Required: Yes Beliefs That Will Affect Care: None marital status: / Current Living Situation: Alone Current Living Situation Comment: Lives at home with daugther, son in law and grandchildren Feels Safe at Home: Yes Safety Concerns: Feels Safe At This Time Assistive Devices: BiPap and Walker Assistive Devices Comment: Pt. wears BiPAP at home, HS Allergies Allergies Allergy/AdvReac Type Severity Reaction Status Date / Time GIN Inhibitors Allergy Unknown UNK Verified 12/16/22 14:59 cat dander Allergy Unknown UNK Verified 12/16/22 14:59 codeine Allergy Unknown Nausea Verified 12/16/22 14:59 house dust Allergy Unknown Unknown Verified 12/16/22 14:59 hydrocodone Allergy Unknown Nausea Verified 12/16/22 14:59 meperidine Allergy Unknown Nausea Verified 12/16/22 14:59 morphine Allergy Unknown Nausea Verified 12/16/22 14:59 pioglitazone Allergy Unknown UNK Verified 12/16/22 14:59 tree and shrub pollen Allergy Unknown Unknown Verified 12/16/22 14:59 nickel AdvReac Intermediate Redness of Verified 12/16/22 14:59 Skin Cockroach Allergy Unknown UNK Uncoded 12/16/22 14:59 Home Meds Home Medications Medication Instructions Recorded Confirmed allopurinol 100 mg tablet 100 mg PO BID 09/28/18 12/16/22 aspirin 81 mg tablet,delayed 81 mg PO QAM 09/28/18 12/16/22 release (Tiara Low Dose Aspirin) atorvastatin 40 mg tablet 40 mg PO HS 09/28/18 12/16/22 diltiazem HCl 360 mg capsule,24 360 mg PO QAM 09/28/18 12/16/22 hr,extended release gabapentin 600 mg tablet 600 mg PO BID 09/28/18 12/16/22 gemfibrozil 600 mg tablet 600 mg PO BID 09/28/18 12/16/22 levothyroxine 112 mcg tablet 112 mcg PO QAM 09/28/18 12/16/22 metoprolol tartrate 25 mg tablet 25 mg PO BID 09/28/18 12/16/22 mometasone 50 mcg/actuation nasal 2 spray intranasal QAM 09/28/18 12/16/22 spray diclofenac sodium 1 % topical gel 2 g topical QID 12/09/18 12/16/22 albuterol sulfate 2.5 mg/3 mL 2.5 mg inhalation Q4H PRN Wheezing 02/19/19 12/16/22 (0.083 %) solution for nebulization ascorbic acid (vitamin C) 1,000 mg 1 g PO QAM 08/01/20 12/16/22 tablet coenzyme Q10 10 mg capsule 10 mg PO QAM 08/01/20 12/16/22 glucosamine 375 [id number] 1 tab PO BID 08/01/20 12/16/22 no1 500 mg-C 15 mg-donald 0.5 mg tablet magnesium 200 mg tablet 100 mg PO QAM 08/01/20 12/16/22 zinc 50 mg tablet 100 mg PO QAM 08/01/20 12/16/22 famotidine 20 mg tablet (Pepcid) 20 mg PO BID 04/07/22 12/16/22 furosemide 40 mg tablet (Lasix) 40 mg PO BID PRN swelling 04/07/22 12/16/22 insulin glargine 100 unit/mL (3 50 unit subcut BID 12/25/22 mL) subcutaneous pen (Lantus Solostar U-100 Insulin) insulin lispro 100 unit/mL 100 unit subcut TID 12/25/22 subcutaneous pen (Humalog KwikPen (U-100) Insulin) potassium 99 meq PO DAILY 12/25/22 12/25/22 Previous Rx's Medication Instructions Recorded dabigatran etexilate 150 mg 150 mg PO BID #14 caps 04/17/22 capsule (Pradaxa) pen needle, diabetic 31 gauge x #500 ea 11/11/2202/15" (Clickfine Pen Needle) Results & Data (ED) Vital Signs Vital Signs - 24 hr 12/25/22 16:06 12/25/22 18:04 Temperature 36.6 C Temperature Source Temporal Artery Scan Pulse Rate 93 H 92 H Respiratory Rate 16 Blood Pressure 164/96 H Blood Pressure Mean 118 Pulse Oximetry 97 Sepsis Recent Fever Within 48 Hours No Sepsis New/Unexplained Change in Mental Status N/A Sepsis Action Taken by Nursing No Action Required Laboratory Data 12/25/22 16:17 12/25/22 16:17 Lab Results 12/25/22 12/25/22 12/25/22 Range/Units 16:11 16:12 16:17 WBC (4.8-10.8) K/ul RBC (4.20-5.40) M/uL Hgb (12.0-16.0) g/dl Hct (37.0-47.0) % MCV (80.0-100.0) fL MCH (25.0-34.0) pg MCHC (32.0-36.0) g/dL RDW Std Deviation (36.4-46.3) fL RDW Coeff of Faraz (11.5-14.5) % Plt Count (130-400) K/uL MPV (9.4-12.4) fL Immature Gran % (Auto) % Neut % (Auto) % Lymph % (Auto) % [place] % (Auto) % Eos % (Auto) % Baso % (Auto) % Neut # (Auto) (1.40-6.50) K/uL Lymph # (Auto) (1.2-3.4) K/uL [place] # (Auto) (0.11-0.59) K/uL Eos # (Auto) (0-0.50) K/uL Baso # (Auto) (0-0.2) K/uL Immature Gran # (Auto) (0.01-0.20) K/uL PT 12.4 H (9.0-12.0) Seconds INR 1.2 H (0.9-1.1) APTT 28.5 (21.0-31.0) Seconds PTT Ratio 1.0 Sodium (136-145) mmol/L Potassium (3.5-5.1) mmol/L Chloride (98-107) mmol/L Carbon Dioxide (21-32) mmol/L Anion Gap (3-11) BUN (6-23) mg/dl Creatinine (0.6-1.2) mg/dl Est Cr Clr Drug Dosing Est GFR ( Amer) ml/min Est GFR (Non-Af Amer) ml/min BUN/Creatinine Ratio (10-20) Glucose (70-99(Fasting)) mg/dl POC Glucose 260 H (70-99) mg/dl Lactate (0.4-2.0) mmol/L Calcium (8.6-10.3) mg/dl Magnesium (1.7-2.4) mg/dl Total Bilirubin (0.2-1.0) mg/dl AST (13-39) U/L ALT (7-52) U/L Alkaline Phosphatase (34-104) U/L Troponin I High Sens (0-14) pg/ml B-Natriuretic Peptide 178 H (0-100) pg/ml Total Protein (6.0-8.3) gm/dl Albumin (3.4-5.0) gm/dl Globulin (2.5-4.0) gm/dl Albumin/Globulin Ratio (0.9-2) Lipase (11-82) U/L Urine Color Urine Appearance (Clear) Urine pH (4.5-7.5) Ur Specific [place] (1.000-1.030) Urine Protein (Negative) Urine Glucose (UA) (Negative) Urine Ketones (Negative) Urine Blood (Negative) Urine Nitrite (Negative) Urine Bilirubin (Negative) Urine Urobilinogen (Negative) Ur Leukocyte Esterase (Negative) Urine WBC (Auto) (0-5) /hpf Urine RBC (Auto) (0-4) /hpf U Hyaline Cast (Auto) (0-5) /lpf U Epithel Cells (Auto) (0-5) /lpf Urine Bacteria (Auto) (Negative) 12/25/22 12/25/22 12/25/22 Range/Units 16:17 16:17 17:13 WBC 8.84 (4.8-10.8) K/ul RBC 5.10 (4.20-5.40) M/uL Hgb 15.6 (12.0-16.0) g/dl Hct 45.8 (37.0-47.0) % MCV 89.8 (80.0-100.0) fL MCH 30.6 (25.0-34.0) pg MCHC 34.1 (32.0-36.0) g/dL RDW Std Deviation 49.6 H (36.4-46.3) fL RDW Coeff of Faraz 15.1 H (11.5-14.5) % Plt Count 303 (130-400) K/uL MPV 10.5 (9.4-12.4) fL Immature Gran % (Auto) 0.7 % Neut % (Auto) 79.8 % Lymph % (Auto) 13.9 % [place] % (Auto) 5.5 % Eos % (Auto) 0.0 % Baso % (Auto) 0.1 % Neut # (Auto) 7.05 H (1.40-6.50) K/uL Lymph # (Auto) 1.23 (1.2-3.4) K/uL [place] # (Auto) 0.49 (0.11-0.59) K/uL Eos # (Auto) 0.00 (0-0.50) K/uL Baso # (Auto) 0.01 (0-0.2) K/uL Immature Gran # (Auto) 0.06 (0.01-0.20) K/uL PT (9.0-12.0) Seconds INR (0.9-1.1) APTT (21.0-31.0) Seconds PTT Ratio Sodium 141 (136-145) mmol/L Potassium 3.1 L (3.5-5.1) mmol/L Chloride 100 (98-107) mmol/L Carbon Dioxide 28 (21-32) mmol/L Anion Gap 13 H (3-11) BUN 22 (6-23) mg/dl Creatinine 0.58 L (0.6-1.2) mg/dl Est Cr Clr Drug Dosing Not Reportable Est GFR ( Amer) 110.5 ml/min Est GFR (Non-Af Amer) 95.4 ml/min BUN/Creatinine Ratio 37.9 H (10-20) Glucose 278 H (70-99(Fasting)) mg/dl POC Glucose (70-99) mg/dl Lactate 2.3 H* (0.4-2.0) mmol/L Calcium 8.9 (8.6-10.3) mg/dl Magnesium 1.8 (1.7-2.4) mg/dl Total Bilirubin 0.7 (0.2-1.0) mg/dl AST 29 (13-39) U/L ALT 24 (7-52) U/L Alkaline Phosphatase 73 (34-104) U/L Troponin I High Sens 18.0 H (0-14) pg/ml B-Natriuretic Peptide (0-100) pg/ml Total Protein 6.9 (6.0-8.3) gm/dl Albumin 3.8 (3.4-5.0) gm/dl Globulin 3.1 (2.5-4.0) gm/dl Albumin/Globulin Ratio 1.2 (0.9-2) Lipase 16 (11-82) U/L Urine Color Urine Appearance (Clear) Urine pH (4.5-7.5) Ur Specific [place] (1.000-1.030) Urine Protein (Negative) Urine Glucose (UA) (Negative) Urine Ketones (Negative) Urine Blood (Negative) Urine Nitrite (Negative) Urine Bilirubin (Negative) Urine Urobilinogen (Negative) Ur Leukocyte Esterase (Negative) Urine WBC (Auto) (0-5) /hpf Urine RBC (Auto) (0-4) /hpf U Hyaline Cast (Auto) (0-5) /lpf U Epithel Cells (Auto) (0-5) /lpf Urine Bacteria (Auto) (Negative) 12/25/22 Range/Units 20:05 WBC (4.8-10.8) K/ul RBC (4.20-5.40) M/uL Hgb (12.0-16.0) g/dl Hct (37.0-47.0) % MCV (80.0-100.0) fL MCH (25.0-34.0) pg MCHC (32.0-36.0) g/dL RDW Std Deviation (36.4-46.3) fL RDW Coeff of Faraz (11.5-14.5) % Plt Count (130-400) K/uL MPV (9.4-12.4) fL Immature Gran % (Auto) % Neut % (Auto) % Lymph % (Auto) % [place] % (Auto) % Eos % (Auto) % Baso % (Auto) % Neut # (Auto) (1.40-6.50) K/uL Lymph # (Auto) (1.2-3.4) K/uL [place] # (Auto) (0.11-0.59) K/uL Eos # (Auto) (0-0.50) K/uL Baso # (Auto) (0-0.2) K/uL Immature Gran # (Auto) (0.01-0.20) K/uL PT (9.0-12.0) Seconds INR (0.9-1.1) APTT (21.0-31.0) Seconds PTT Ratio Sodium (136-145) mmol/L Potassium (3.5-5.1) mmol/L Chloride (98-107) mmol/L Carbon Dioxide (21-32) mmol/L Anion Gap (3-11) BUN (6-23) mg/dl Creatinine (0.6-1.2) mg/dl Est Cr Clr Drug Dosing Est GFR ( Amer) ml/min Est GFR (Non-Af Amer) ml/min BUN/Creatinine Ratio (10-20) Glucose (70-99(Fasting)) mg/dl POC Glucose (70-99) mg/dl Lactate (0.4-2.0) mmol/L Calcium (8.6-10.3) mg/dl Magnesium (1.7-2.4) mg/dl Total Bilirubin (0.2-1.0) mg/dl AST (13-39) U/L ALT (7-52) U/L Alkaline Phosphatase (34-104) U/L Troponin I High Sens (0-14) pg/ml B-Natriuretic Peptide (0-100) pg/ml Total Protein (6.0-8.3) gm/dl Albumin (3.4-5.0) gm/dl Globulin (2.5-4.0) gm/dl Albumin/Globulin Ratio (0.9-2) Lipase (11-82) U/L Urine Color Dark Yellow Urine Appearance Clear (Clear) Urine pH 7.5 (4.5-7.5) Ur Specific [place] 1.043 H (1.000-1.030) Urine Protein 2+ H (Negative) Urine Glucose (UA) Negative (Negative) Urine Ketones Trace H (Negative) Urine Blood Negative (Negative) Urine Nitrite Negative (Negative) Urine Bilirubin Negative (Negative) Urine Urobilinogen Negative (Negative) Ur Leukocyte Esterase Negative (Negative) Urine WBC (Auto) 1-5 (0-5) /hpf Urine RBC (Auto) 0-4 (0-4) /hpf U Hyaline Cast (Auto) 0 (0-5) /lpf U Epithel Cells (Auto) 20-30 H (0-5) /lpf Urine Bacteria (Auto) Negative (Negative) Administered Medications Acetaminophen (Acetaminophen 325 Mg Tab) 650 mg PO Q4H PRN PRN Reason: Pain or Fever Stop: 01/24/23 21:46 Last Admin: 12/26/22 07:58 Dose: 650 mg Documented By: [id number] Allopurinol (Allopurinol 100 Mg Tab) 100 mg PO BID [facility] Stop: 01/25/23 08:59 Last Admin: 12/26/22 20:15 Dose: 100 mg Documented By: Admin: 12/26/22 07:54 Dose: 100 mg Documented By: [id number] Aspirin (Aspirin 81 Mg Ectab) [facility] [place] Stop: 01/25/23 08:59 Last Admin: 12/26/22 07:54 Dose: 81 mg Documented By: [id number] Atorvastatin Calcium (Atorvastatin 40 Mg Tab) 40 mg PO [facility] Stop: 01/24/23 21:04 Last Admin: 12/26/22 20:15 Dose: 40 mg Documented By: Admin: 12/25/22 21:50 Dose: 40 mg Documented By: DM Dabigatran (Dabigatran Etexilate 75 Mg Cap) 150 mg PO BID [facility] Stop: 01/24/23 21:14 Last Admin: 12/26/22 20:16 Dose: 150 mg Documented By: Admin: 12/26/22 07:53 Dose: 150 mg Documented By: [id number] Admin: 12/25/22 21:52 Dose: 150 mg Documented By: DM Diltiazem HCl (Diltiazem Hcl 180 Mg Capcr) [facility] [place] Stop: 01/25/23 08:59 Last Admin: 12/26/22 07:54 Dose: 360 mg Documented By: [id number] Famotidine (Famotidine 20 Mg Tab) 20 mg PO BID [facility] Stop: 01/24/23 21:14 Last Admin: 12/26/22 20:15 Dose: 20 mg Documented By: Admin: 12/26/22 07:52 Dose: 20 mg Documented By: [id number] Admin: 12/25/22 21:50 Dose: 20 mg Documented By: NICHOL Fluticasone Propionate (Fluticasone Propionate Na Spr 16 Gm Btl) 2 sprays NA QAM [facility] Stop: 01/25/23 08:59 Last Admin: 12/26/22 10:40 Dose: 2 sprays Documented By: [id number] Gabapentin (Gabapentin 600 Mg Tab) 600 mg PO BID [facility] Stop: 01/24/23 21:14 Last Admin: 12/26/22 20:15 Dose: 600 mg Documented By: Admin: 12/26/22 07:52 Dose: 600 mg Documented By: [id number] Admin: 12/25/22 21:50 Dose: 600 mg Documented By: NICHOL Gemfibrozil (Gemfibrozil 600 Mg Tab) 600 mg PO BID [facility] Stop: 01/24/23 21:14 Last Admin: 12/26/22 20:15 Dose: 600 mg Documented By: Admin: 12/26/22 07:52 Dose: 600 mg Documented By: [id number] Admin: 12/25/22 21:51 Dose: 600 mg Documented By: NICHOL Promethazine HCl 12.5 mg/ (Sodium Chloride) 50.5 mls @ 202 mls/hr IV Q6H PRN PRN Reason: Nausea And Vomiting Stop: 01/24/23 20:35 Last Infusion: 12/25/22 22:24 Dose: 0 mls/hr Documented By: Admin: 12/25/22 22:09 Dose: 202 mls/hr Documented By: NICHOL Insulin Aspart (Insulin Aspart Per Unit Charge) 0 units SC ACHS [facility] Stop: 01/24/23 21:46 Last Admin: 12/26/22 20:13 Dose: 2 units Documented By: LUBNA Co-signed By: NICHOL Admin: 12/26/22 17:13 Dose: 4 units Documented By: [id number] Co-signed By: CHUN Admin: 12/26/22 12:24 Dose: 5 units Documented By: [id number] Co-signed By: CHUN Admin: 12/26/22 08:57 Dose: 4 units Documented By: [id number] Co-signed By: ROBSON Admin: 12/25/22 22:10 Dose: 4 units Documented By: NICHOL Co-signed By: NILES Insulin Glargine (Lantus Per Unit Charge) 20 units SQ BID [facility] Stop: 01/25/23 19:14 Last Admin: 12/26/22 20:12 Dose: 20 units Documented By: LUBNA Co-signed By: NICHOL Levothyroxine Sodium (Levothyroxine Sodium 112 Mcg Tablet) 112 mcg PO DAILYBB [facility] Stop: 01/25/23 06:29 Last Admin: 12/26/22 05:38 Dose: 112 mcg Documented By: NICHOL Metoprolol Tartrate (Metoprolol Tartrate 25 Mg Tab) 25 mg PO BID [facility] Stop: 01/25/23 08:59 Last Admin: 12/26/22 20:15 Dose: 25 mg Documented By: Admin: 12/26/22 07:53 Dose: 25 mg Documented By: [id number] Discontinued Medications Sodium Chloride (Nss) 500 mls @ 999 mls/hr IV .Q31M STA Stop: 12/25/22 16:40 Last Infusion: 12/25/22 18:24 Dose: 0 mls/hr Documented By: Admin: 12/25/22 16:33 Dose: 999 mls/hr Documented By: FREDY Sodium Chloride (Nss 1000ml) 500 mls @ 999 mls/hr IV .Q31M ONE Stop: 12/25/22 19:06 Last Infusion: 12/25/22 21:49 Dose: 0 mls/hr Documented By: Admin: 12/25/22 18:42 Dose: 999 mls/hr Documented By: VERONA Sodium Chloride (Nss 1000ml) 1,000 mls @ 125 mls/hr IV .Q8H [facility] Stop: 01/24/23 18:44 Last Admin: 12/25/22 19:51 Dose: Not Given Documented By: MARIA Potassium Chloride (K Zackary / Wtr) 10 meq in 100 mls @ 100 mls/hr IV ONE ONE; Protocol Stop: 12/25/22 19:38 Last Infusion: 12/25/22 21:49 Dose: 0 mls/hr Documented By: Admin: 12/25/22 19:55 Dose: 100 mls/hr Documented By: MARIA Albumin Human (Albumin 25% 100 Ml) 25 gm in 100 mls @ 50 mls/hr IV ONE ONE Stop: 12/25/22 22:27 Last Infusion: 12/26/22 00:00 Dose: 0 mls/hr Documented By: Admin: 12/25/22 22:25 Dose: 50 mls/hr Documented By: NICHOL Magnesium Sulfate/Dextrose (Magnesium Sulfate / D5w) 1 gm in 100 mls @ 50 mls/hr IV ONE ONE Stop: 12/26/22 00:59 Last Infusion: 12/26/22 02:06 Dose: 0 mls/hr Documented By: Admin: 12/26/22 00:00 Dose: 50 mls/hr Documented By: NICHOL Albumin Human (Albumin 25% 100 Ml) 25 gm in 100 mls @ 50 mls/hr IV ONE ONE Stop: 12/26/22 03:59 Last Infusion: 12/26/22 04:05 Dose: 0 mls/hr Documented By: Admin: 12/26/22 02:05 Dose: 50 mls/hr Documented By: NICHOL Potassium Chloride (K Zackary / Wtr) 10 meq in 100 mls @ 100 mls/hr IV Q1H [facility]; Protocol Stop: 12/26/22 07:14 Last Infusion: 12/26/22 07:47 Dose: 0 mls/hr Documented By: [id number] Admin: 12/26/22 06:45 Dose: 100 mls/hr Documented By: Infusion: 12/26/22 06:45 Dose: 100 mls/hr Documented By: Admin: 12/26/22 05:45 Dose: 100 mls/hr Documented By: Infusion: 12/26/22 05:39 Dose: 100 mls/hr Documented By: Admin: 12/26/22 04:39 Dose: 100 mls/hr Documented By: Infusion: 12/26/22 04:39 Dose: 100 mls/hr Documented By: Admin: 12/26/22 03:41 Dose: 100 mls/hr Documented By: NICHOL Albumin Human (Albumin 25% 100 Ml) 25 gm in 100 mls @ 50 mls/hr IV ONE ONE Stop: 12/26/22 08:42 Last Infusion: 12/26/22 10:03 Dose: 0 mls/hr Documented By: [id number] Admin: 12/26/22 07:07 Dose: 50 mls/hr Documented By: NICHOL Sodium Chloride (Nss) 500 mls @ 70 mls/hr IV .Q7H9M [facility] Stop: 12/26/22 18:08 Last Infusion: 12/26/22 18:40 Dose: 0 mls/hr Documented By: [id number] Admin: 12/26/22 11:23 Dose: 70 mls/hr Documented By: [id number] Insulin Glargine (Lantus Per Unit Charge) 15 units SQ BID [facility] Stop: 01/24/23 21:46 Last Admin: 12/26/22 08:57 Dose: 15 units Documented By: [id number] Co-signed By: ROBSON Admin: 12/25/22 22:10 Dose: 15 units Documented By: NICHOL Co-signed By: NILES Ioversol (Optiray 320 500ml) 114 ml IV ONCE ONE Stop: 12/25/22 18:55 Last Admin: 12/25/22 18:54 Dose: 114 ml Documented By: SALOMÓN Metoprolol Tartrate (Metoprolol Tartrate 1 Mg/Ml Vial) 2.5 mg IV NOW STA Stop: 12/25/22 19:40 Last Admin: 12/25/22 19:56 Dose: 2.5 mg Documented By: MARIA Miscellaneous Information (Nursing To Pharmacy Communication) 1 each N/A TODAY [facility] Stop: 01/25/23 00:44 Last Admin: 12/26/22 01:07 Dose: 1 each Documented By: NICHOL Ondansetron HCl (Ondansetron Inj 2 Mg/Ml 2 Ml Vial) 4 mg IV NOW STA Stop: 12/25/22 16:11 Last Admin: 12/25/22 16:32 Dose: 4 mg Documented By: FREDY Ondansetron HCl (Ondansetron Inj 2 Mg/Ml 2 Ml Vial) 4 mg IV NOW STA Stop: 12/25/22 18:36 Last Admin: 12/25/22 18:41 Dose: 4 mg Documented By: VERONA Potassium Chloride (Potassium Chloride Pwd 20 Meq Pack) 40 meq PO NOW STA Stop: 12/25/22 19:41 Last Admin: 12/25/22 21:53 Dose: Not Given Documented By: NICHOL Potassium Chloride (Potassium Chloride Pwd 20 Meq Pack) 40 meq PO ONE ONE Stop: 12/25/22 22:01 Last Admin: 12/25/22 21:53 Dose: 40 meq Documented By: NICHOL Potassium Chloride (Potassium Chloride Pwd 20 Meq Pack) 40 meq PO NOW STA Stop: 12/26/22 03:06 Last Admin: 12/26/22 03:10 Dose: 40 meq Documented By: DM Imaging Data Radiologist's Impression: Abdomen/Pelvis CT 12/25/22 16:10 CT SCAN OF THE ABDOMEN AND PELVIS WITH IV CONTRAST CLINICAL HISTORY: Generalized abdominal pain. Nausea and vomiting. Diarrhea. COMPARISON STUDY: Abdominal CT dated 04/20/2022. TECHNIQUE: Following the IV administration of 114 cc of Optiray 320, CT scan of the abdomen and pelvis is performed from the lung bases to the proximal femora. Images are reviewed in the axial, sagittal, and coronal planes. IV contrast was administered without complication. A dose lowering technique was utilized adhering to the principles of ALARA. The examination is degraded by large body habitus, and by streak artifact from the body wall abutting the CT gantry. There is also motion artifact. CT DOSE: 1842.11 mGy.cm FINDINGS: Lung bases: The heart is normal in size and without pericardial effusion. There are coronary artery calcifications. A tiny hiatal hernia is noted. The lung bases are clear noting mild bibasilar scarring/atelectasis. Liver: The contrast-enhanced liver is enlarged, measuring 21.4 cm in length. There is geographic hepatic steatosis. There is mild intrahepatic biliary ductal dilatation. The hepatic veins and portal veins are patent. Gallbladder: Surgically absent and clips in the gallbladder fossa. Spleen: Normal in size and attenuation. Pancreas: Moderately atrophic and grossly unremarkable. Adrenal glands: Unremarkable. Kidneys: The contrast enhanced kidneys are normal in size and without hydronephrosis. The kidneys enhance symmetrically. Abdominal vasculature: The abdominal aorta is normal in course and caliber noting moderate atherosclerotic calcification. Bowel: There is a large complex hernia in the right lower quadrant/pelvis. The more superior component of the hernia on image #298 contains a segment of colon. The larger and more inferiorly located component contains several nonobstructed loops of small bowel. There is no evidence of obstruction. A 4.5 x 2.5 cm pocket of peripherally enhancing fluid is seen anteriorly within the hernia sac on image #426. There is advanced colonic diverticulosis without CT evidence of acute diverticulitis. The appendix is not identified and reported surgically absent. A 2.3 cm gastric lipoma is seen on image #[id number]. Peritoneum: There is no intraperitoneal free air or abdominal ascites. Lymphadenopathy: None. Pelvic viscera: The bladder is normal as visualized. The uterus is surgically absent. No adnexal lesion is seen. Skeletal structures: The skeletal structures are heterogeneously osteopenic. There is moderate lumbosacral spondylosis. No lytic or blastic lesions are seen. IMPRESSION: 1. No acute infectious or inflammatory findings are identified in the abdomen or pelvis. 2. There are large complex hernias in the right lower quadrant/pelvis as above which contain nonobstructed segments of small bowel and colon. 3. A small collection is seen within the anterior/inferior aspect of the larger and more inferior component of the hernia. This is similar to the 04/20/2022 examination and may represent a postoperative seroma. The sterility of this fluid cannot be assessed by imaging and clinical correlation will be required. 4. The liver is enlarged with evidence of geographic steatosis. 5. Advanced colonic diverticulosis without CT evidence of acute diverticulitis. 6. Additional findings as above. ACT 112: Negative or not required by law. Electronically signed by: Jagjit Hagen M.D. 12/25/2022 7:17 PM Chest X-Ray 12/25/22 16:11 SINGLE VIEW CHEST CLINICAL HISTORY: Dyspnea. FINDINGS: An AP, portable, upright chest radiograph is compared to study dated 02/19/2019. The examination is degraded by portable technique and patient rotation. The heart is enlarged. There is mild pulmonary vascular congestion. Atelectasis is noted at the lung bases. No large pleural effusion or pneumothorax is seen. The skeletal structures are osteopenic. The bony thorax is grossly intact. Arthritic change is seen in the shoulders. IMPRESSION: Cardiomegaly with mild pulmonary vascular congestion. ACT 112: Negative or not required by law. Electronically signed by: Jagjit Hagen M.D. 12/25/2022 6:20 PM Discharge Plan Visit Data Chief Complaint: Vomiting Stated Complaint: NAUSEA, VOMITING ED Provider: Garett Mckeon Discharge Problem: Nausea, vomiting, and diarrhea, Elevated troponin, Acute dehydration, Acute hypokalemia Patient Disposition: Admitted As Inpatient Discharge Instructions Interventions: ED Discharge Assessment Last Done: 12/25/22 19:20
[2022-12-25] MEDS ORDERED: METOPROLOL TARTRATE 1 MG/ML VIAL IV STA (19:39)
[2022-12-25] MEDS ORDERED: POTASSIUM CHLORIDE PWD 20 MEQ PACK PO STA (19:40)
[2022-12-25] MEDS ORDERED: ALBUMIN 25% 100 mL 25 GM/100 ML VIAL IV ONE (20:28)
--- NOTE | 2022-12-25 20:28 | History & Physical Report ---
Date of Service December 25, 2022 Assessment & Plan (1) Acute gastroenteritis: Plan: Likely viral. Hypokalemia secondary to above Troponin elevation possibly secondary to uncontrolled BP, patient denies chest pain or unusual shortness of breath. A-fib on Pradaxa, rate controlled COPD/NAVI on BiPAP, baseline pulmonary symptoms DM2 insulin requiring, well-controlled as of recent hemoglobin A1c of 7 last April 2022 hypothyroidism, patient TSH from last year was noted to be low ovarian cancer status post surgery, patient in remission anxiety/mood disorder, at baseline morbid obesity past tobacco abuse Medical telemetry Replace potassium, check magnesium Facilitate home BP meds Follow troponin, TTE for progression Supportive management for likely viral gastroenteritis Recheck TSH Basal bolus insulin adjusted for clear liquid diet for now, update hemoglobin A1c DVT prophylaxis. Pradaxa Full code Patient sister requesting updates from providers. Mr. Annamarie Lu, contact #[phone]. Text document was generated using Fan[employer] voice recognition software. It may contain grammatical or spelling errors. Kindly contact undersigned for clarification of any documentation item in question. History of Present Illness Chief Complaint: Abdominal pain, nausea vomiting Primary Care Provider: Mohsen Vazquez MD History obtained from patient, family, and records. Medical history significant for A-fib on Pradaxa, hypertension, COPD, NAVI on BiPAP, DM2 insulin requiring, hypothyroidism, ovarian cancer status post surgery, anxiety/mood disorder, morbid obesity, past tobacco abuse. Last confinement April 2022 for post polypectomy GI bleed. Few days history of achy abdominal pain associated with nausea and vomiting, diarrhea. Patient not sure about bleeding as she did not look. No chest pain. No headache symptoms. Usual shortness of breath. Not sure about sick contacts given recent outpatient PCP visit. No recent antibiotic Rx. Was not able to take home medications for 2 days because she was not feeling well. Patient brought to ER for evaluation. 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 Allergies Allergy/AdvReac Type Severity Reaction Status Date / Time GIN Inhibitors Allergy Unknown UNK Verified 12/16/22 14:59 cat dander Allergy Unknown UNK Verified 12/16/22 14:59 codeine Allergy Unknown Nausea Verified 12/16/22 14:59 house dust Allergy Unknown Unknown Verified 12/16/22 14:59 hydrocodone Allergy Unknown Nausea Verified 12/16/22 14:59 meperidine Allergy Unknown Nausea Verified 12/16/22 14:59 morphine Allergy Unknown Nausea Verified 12/16/22 14:59 pioglitazone Allergy Unknown UNK Verified 12/16/22 14:59 tree and shrub pollen Allergy Unknown Unknown Verified 12/16/22 14:59 nickel AdvReac Intermediate Redness of Verified 12/16/22 14:59 Skin Cockroach Allergy Unknown UNK Uncoded 12/16/22 14:59 Home Medications Medication Instructions Recorded Confirmed Type allopurinol 100 mg tablet 100 mg PO BID 09/28/18 12/16/22 History aspirin 81 mg tablet,delayed 81 mg PO QAM 09/28/18 12/16/22 History release (Tiara Low Dose Aspirin) atorvastatin 40 mg tablet 40 mg PO HS 09/28/18 12/16/22 History diltiazem HCl 360 mg capsule,24 360 mg PO QAM 09/28/18 12/16/22 History hr,extended release gabapentin 600 mg tablet 600 mg PO BID 09/28/18 12/16/22 History gemfibrozil 600 mg tablet 600 mg PO BID 09/28/18 12/16/22 History levothyroxine 112 mcg tablet 112 mcg PO QAM 09/28/18 12/16/22 History metoprolol tartrate 25 mg tablet 25 mg PO BID 09/28/18 12/16/22 History mometasone 50 mcg/actuation nasal 2 spray intranasal QAM 09/28/18 12/16/22 History spray diclofenac sodium 1 % topical gel 2 g topical QID 12/09/18 12/16/22 History albuterol sulfate 2.5 mg/3 mL 2.5 mg inhalation Q4H PRN Wheezing 02/19/1912/01 History (0.083 %) solution for nebulization ascorbic acid (vitamin C) 1,000 mg 1 g PO QAM 08/01/20 12/16/22 History tablet coenzyme Q10 10 mg capsule 10 mg PO QAM 08/01/20 12/16/22 History glucosamine 375 wk-gcnhnzhxh-vnu 1 tab PO BID 08/01/20 12/16/22 History no1 500 mg-C 15 mg-donald 0.5 mg tablet magnesium 200 mg tablet 100 mg PO QAM 08/01/20 12/16/22 History zinc 50 mg tablet 100 mg PO QAM 08/01/20 12/16/22 History famotidine 20 mg tablet (Pepcid) 20 mg PO BID 04/07/22 12/16/22 History furosemide 40 mg tablet (Lasix) 40 mg PO BID PRN swelling 04/07/22 12/16/22 History dabigatran etexilate 150 mg 150 mg PO BID #14 caps 04/17/22 12/16/22 Rx capsule (Pradaxa) pen needle, diabetic 31 gauge x #500 ea 11/11/22 12/16/22 Rx 02/15" (Clickfine Pen Needle) insulin glargine 100 unit/mL (3 50 unit subcut BID 12/25/22 History mL) subcutaneous pen (Lantus Solostar U-100 Insulin) insulin lispro 100 unit/mL 100 unit subcut TID 12/25/22 History subcutaneous pen (Humalog KwikPen (U-100) Insulin) potassium 99 meq PO DAILY 12/25/22 12/25/22 History Past Med/Surg History Medical History Atrial fibrillation with rapid ventricular response (07/14/14) COPD (chronic obstructive pulmonary disease) Depression Diabetic neuropathy GERD (gastroesophageal reflux disease) Gout HLD (hyperlipidemia) HTN (hypertension) Hx of ovarian cancer Hypothyroid Lower gastrointestinal hemorrhage Nausea and vomiting after administration of anesthetic agent NAVI (obstructive sleep apnea) Surgical History History of cholecystectomy History of hernia repair S/P appendectomy S/P hysterectomy Status post colonoscopy with polypectomy Family History Father Myocardial infarction Coronary heart disease Diabetes Mother Complication of surgery Diabetes Sister Diabetes Sister Diabetes Brother Diabetes Sister Diabetes Sister Gestational diabetes Grandmother (Paternal) Diabetes Grandmother (Maternal) Diabetes Social History Smoking Status: Former smoker Cigarettes Per Day: 0; Second Hand Exposure: No; Hx Alcohol Use: No Hx Substance Use: No Preferred Language: Serbian Communication Ability: Effective Set Designer Required: No Beliefs That Will Affect Care: None marital status: / Current Living Situation: Alone Current Living Situation Comment: Lives at home with daugther, son in law and grandchildren Feels Safe at Home: Yes Assistive Devices: BiPap and Walker Review of Systems Review of Systems: As per HPI, all other systems reviewed and negative Physical Exam Physical Exam: GENERAL: Slightly uncomfortable, morbidly obese, pleasant, no respiratory distress SKIN: Normal color, warm HEENT: [place] palpebral conjunctivae, no ptosis, dry buccal mucosa NECK : Supple, short neck, no tenderness CHEST : Decreased breath sounds, no tenderness HEART : Irregular, no obvious murmurs ABDOMEN: Some distention, no overt tenderness EXTREMITIES : Minimal LE swelling, no LE tenderness, no other conspicuous deformities noted NEUROLOGIC : Coherent, no facial asymmetry, no other gross focality Results & Data Results & Data Vital Signs (Past 12 Hours) Vital Signs Temp Pulse Resp BP Pulse Ox 12/25/22 19:56 92 H 143/89 H 12/25/22 18:04 92 H 12/25/22 16:06 36.6 C 93 H 16 164/96 H 97 Laboratory Results Laboratory Results WBC 8.84 K/ul (4.8-10.8) 12/25/22 16:17 RBC 5.10 M/uL (4.20-5.40) 12/25/22 16:17 Hgb 15.6 g/dl (12.0-16.0) 12/25/22 16:17 Hct 45.8 % (37.0-47.0) 12/25/22 16:17 MCV 89.8 fL (80.0-100.0) 12/25/22 16:17 MCH 30.6 pg (25.0-34.0) 12/25/22 16:17 MCHC 34.1 g/dL (32.0-36.0) 12/25/22 16:17 RDW Std Deviation 49.6 fL (36.4-46.3) H 12/25/22 16:17 RDW Coeff of Faraz 15.1 % (11.5-14.5) H 12/25/22 16:17 Plt Count 303 K/uL (130-400) 12/25/22 16:17 MPV 10.5 fL (9.4-12.4) 12/25/22 16:17 Immature Gran % (Auto) 0.7 % 12/25/22 16:17 Neut % (Auto) 79.8 % 12/25/22 16:17 Lymph % (Auto) 13.9 % 12/25/22 16:17 [place] % (Auto) 5.5 % 12/25/22 16:17 Eos % (Auto) 0.0 % 12/25/22 16:17 Baso % (Auto) 0.1 % 12/25/22 16:17 Neut # (Auto) 7.05 K/uL (1.40-6.50) H 12/25/22 16:17 Lymph # (Auto) 1.23 K/uL (1.2-3.4) 12/25/22 16:17 [place] # (Auto) 0.49 K/uL (0.11-0.59) 12/25/22 16:17 Eos # (Auto) 0.00 K/uL (0-0.50) 12/25/22 16:17 Baso # (Auto) 0.01 K/uL (0-0.2) 12/25/22 16:17 Immature Gran # (Auto) 0.06 K/uL (0.01-0.20) 12/25/22 16:17 PT 12.4 Seconds (9.0-12.0) H 12/25/22 16:17 INR 1.2 (0.9-1.1) H 12/25/22 16:17 APTT 28.5 Seconds (21.0-31.0) 12/25/22 16:17 PTT Ratio 1.0 12/25/22 16:17 Sodium 141 mmol/L (136-145) 12/25/22 16:17 Potassium 3.1 mmol/L (3.5-5.1) L 12/25/22 16:17 Chloride 100 mmol/L (98-107) 12/25/22 16:17 Carbon Dioxide 28 mmol/L (21-32) 12/25/22 16:17 Anion Gap 13 (3-11) H 12/25/22 16:17 BUN 22 mg/dl (6-23) 12/25/22 16:17 Creatinine 0.58 mg/dl (0.6-1.2) L 12/25/22 16:17 Est Cr Clr Drug Dosing Not Reportable 12/25/22 16:17 Est GFR ( Amer) 110.5 ml/min 12/25/22 16:17 Est GFR (Non-Af Amer) 95.4 ml/min 12/25/22 16:17 BUN/Creatinine Ratio 37.9 (10-20) H 12/25/22 16:17 Glucose 278 mg/dl (70-99(Fasting)) H 12/25/22 16:17 POC Glucose 260 mg/dl (70-99) H 12/25/22 16:12 Lactate 2.3 mmol/L (0.4-2.0) H* 12/25/22 17:13 Calcium 8.9 mg/dl (8.6-10.3) 12/25/22 16:17 Total Bilirubin 0.7 mg/dl (0.2-1.0) 12/25/22 16:17 AST 29 U/L (13-39) 12/25/22 16:17 ALT 24 U/L (7-52) 12/25/22 16:17 Alkaline Phosphatase 73 U/L (34-104) 12/25/22 16:17 Troponin I High Sens 18.0 pg/ml (0-14) H 12/25/22 16:17 B-Natriuretic Peptide 178 pg/ml (0-100) H 12/25/22 16:11 Total Protein 6.9 gm/dl (6.0-8.3) 12/25/22 16:17 Albumin 3.8 gm/dl (3.4-5.0) 12/25/22 16:17 Globulin 3.1 gm/dl (2.5-4.0) 12/25/22 16:17 Albumin/Globulin Ratio 1.2 (0.9-2) 12/25/22 16:17 Lipase 16 U/L (11-82) 12/25/22 16:17 SARS-CoV-2 (PCR) NEGATIVE (Negative) 12/25/22 Unknown Influenza Type A (PCR) Negative (Neg) 12/25/22 Unknown Influenza Type B (PCR) Negative (Neg) 12/25/22 Unknown RSV (RT-PCR) Negative (Neg) 12/25/22 Unknown Impressions Abdomen/Pelvis CT 12/25/22 16:10 CT SCAN OF THE ABDOMEN AND PELVIS WITH IV CONTRAST CLINICAL HISTORY: Generalized abdominal pain. Nausea and vomiting. Diarrhea. COMPARISON STUDY: Abdominal CT dated 04/20/2022. TECHNIQUE: Following the IV administration of 114 cc of Optiray 320, CT scan of the abdomen and pelvis is performed from the lung bases to the proximal femora. Images are reviewed in the axial, sagittal, and coronal planes. IV contrast was administered without complication. A dose lowering technique was utilized adhering to the principles of ALARA. The examination is degraded by large body habitus, and by streak artifact from the body wall abutting the CT gantry. There is also motion artifact. CT DOSE: 1842.11 mGy.cm FINDINGS: Lung bases: The heart is normal in size and without pericardial effusion. There are coronary artery calcifications. A tiny hiatal hernia is noted. The lung bases are clear noting mild bibasilar scarring/atelectasis. Liver: The contrast-enhanced liver is enlarged, measuring 21.4 cm in length. There is geographic hepatic steatosis. There is mild intrahepatic biliary ductal dilatation. The hepatic veins and portal veins are patent. Gallbladder: Surgically absent and clips in the gallbladder fossa. Spleen: Normal in size and attenuation. Pancreas: Moderately atrophic and grossly unremarkable. Adrenal glands: Unremarkable. Kidneys: The contrast enhanced kidneys are normal in size and without hydronephrosis. The kidneys enhance symmetrically. Abdominal vasculature: The abdominal aorta is normal in course and caliber noting moderate atherosclerotic calcification. Bowel: There is a large complex hernia in the right lower quadrant/pelvis. The more superior component of the hernia on image #298 contains a segment of colon. The larger and more inferiorly located component contains several nonobstructed loops of small bowel. There is no evidence of obstruction. A 4.5 x 2.5 cm pocket of peripherally enhancing fluid is seen anteriorly within the hernia sac on image #426. There is advanced colonic diverticulosis without CT evidence of acute diverticulitis. The appendix is not identified and reported surgically absent. A 2.3 cm gastric lipoma is seen on image #233. Peritoneum: There is no intraperitoneal free air or abdominal ascites. Lymphadenopathy: None. Pelvic viscera: The bladder is normal as visualized. The uterus is surgically absent. No adnexal lesion is seen. Skeletal structures: The skeletal structures are heterogeneously osteopenic. There is moderate lumbosacral spondylosis. No lytic or blastic lesions are seen. IMPRESSION: 1. No acute infectious or inflammatory findings are identified in the abdomen or pelvis. 2. There are large complex hernias in the right lower quadrant/pelvis as above which contain nonobstructed segments of small bowel and colon. 3. A small collection is seen within the anterior/inferior aspect of the larger and more inferior component of the hernia. This is similar to the 04/20/2022 examination and may represent a postoperative seroma. The sterility of this fluid cannot be assessed by imaging and clinical correlation will be required. 4. The liver is enlarged with evidence of geographic steatosis. 5. Advanced colonic diverticulosis without CT evidence of acute diverticulitis. 6. Additional findings as above. ACT 112: Negative or not required by law. Electronically signed by: Jagjit Hagen M.D. 12/25/2022 7:17 PM Chest X-Ray 12/25/22 16:11 SINGLE VIEW CHEST CLINICAL HISTORY: Dyspnea. FINDINGS: An AP, portable, upright chest radiograph is compared to study dated 02/19/2019. The examination is degraded by portable technique and patient rotation. The heart is enlarged. There is mild pulmonary vascular congestion. Atelectasis is noted at the lung bases. No large pleural effusion or pneumothorax is seen. The skeletal structures are osteopenic. The bony thorax is grossly intact. Arthritic change is seen in the shoulders. IMPRESSION: Cardiomegaly with mild pulmonary vascular congestion. ACT 112: Negative or not required by law. Electronically signed by: Jagjit Hagen M.D. 12/25/2022 6:20 PM Diagnostic Findings EKG as per my interpretation : Rate 85, NSR, normal axis, no ischemia
[2022-12-25] MEDS ORDERED: LANTUS PER UNIT CHARGE SQ ONE (20:35)
[2022-12-25] MEDS ORDERED: INSULIN ASPART PER UNIT CHARGE SC ONE (20:35)
[2022-12-25] MEDS ORDERED: PROMETHAZINE HCL 12.5 MG in SODIUM CHLORIDE 0.9% 50 ML IV PRN (20:36)
[2022-12-25] MEDS ORDERED: traMADol HCL 50 MG TABLET PO PRN (20:36)
[2022-12-25] MEDS ORDERED: DICLOFENAC SOD 1% GEL 100 GM TUBE EXT PRN (21:01)
[2022-12-25 21:23] LABS: Appearance Urine Clear (Clear); Bacteria Urine Automated Negative (Negative); Bilirubin Urine Negative (Negative); Blood Urine Negative (Negative); Cast Urine Automated 0 /lpf (0-5); Color Urine Dark Yellow; Epithelial Cell Urine Auto 20-30 /lpf (0-5); Glucose Urine UA Negative (Negative); Ketones Urine Trace (Negative); Leukocyte Esterase Urine Negative (Negative); Nitrite Urine Negative (Negative); RBC Urine Automated 0-4 /hpf (0-4); Specific Gravity Urine 1.043 (1.000-1.030); Urobilinogen Urine Negative (Negative); pH Urine 7.5 (4.5-7.5)
[2022-12-25 21:27] LABS: Protein Urine 2+ (Negative)
[2022-12-25] MEDS ORDERED: GLUCAGON FOR INJ 1 MG VIAL SQ PRN (21:47)
[2022-12-25] MEDS ORDERED: DEXTROSE 50% 50 ML SYRINGE IV PRN (21:47)
[2022-12-25] MEDS ORDERED: GLUCOSE 40% GEL 15 GM TUBE PO PRN (21:47)
[2022-12-25] MEDS ORDERED: ACETAMINOPHEN 325 MG TAB PO PRN (21:47)
[2022-12-25] MEDS ORDERED: CARBOHYDRATES FOR HYPOGLYCEMIA PO PRN (21:47)
[2022-12-25] MEDS ORDERED: GLUCOSE 10 TAB/TUBE PO PRN (21:47)
[2022-12-25] MEDS: GABAPENTIN 600 MG TAB PO SCH (21:50)
[2022-12-25] MEDS: ATORVASTATIN 40 MG TAB PO SCH (21:50)
[2022-12-25] MEDS: FAMOTIDINE 20 MG TAB PO SCH (21:50)
[2022-12-25] MEDS: gemfibroziL 600 MG TAB PO SCH (21:51)
[2022-12-25] MEDS: DABIGATRAN ETEXILATE 75 MG CAP PO SCH (21:52)
[2022-12-25] MEDS ORDERED: POTASSIUM CHLORIDE PWD 20 MEQ PACK PO ONE (22:00)
[2022-12-25] MEDS: LANTUS PER UNIT CHARGE SQ SCH (22:10)
[2022-12-25] MEDS: INSULIN ASPART PER UNIT CHARGE SC SCH (22:10)
[2022-12-25 22:35] LABS: Magnesium 1.8 mg/dl (1.7-2.4)
[2022-12-25 22:55] LABS: Estimated Average Glucose 154 mg/dl
[2022-12-25] MEDS ORDERED: MAGNESIUM SULFATE / D5W 1 GM/100 ML BAG IV ONE (23:00)
[2022-12-26] MEDS ORDERED: ALBUMIN 25% 100 mL 25 GM/100 ML VIAL IV ONE ×3 (00:36→06:43)
[2022-12-26] MEDS ORDERED: Nursing to Pharmacy Communication SCH (00:45)
[2022-12-26 02:25] LABS: Basophils # (auto) 0.02 K/uL (0-0.2); Basophils % (auto) 0.2 %; Hematocrit (blood only) 43.9 % (37.0-47.0); Hemoglobin 14.5 g/dl (12.0-16.0); Immature Granulocytes # (auto) 0.06 K/uL (0.01-0.20); Immature Granulocytes % (auto) 0.5 %; Lymphocytes # (auto) 1.79 K/uL (1.2-3.4); Lymphocytes % (auto) 15.5 %; Mean Corpuscular Hemoglobin 30.7 pg (25.0-34.0); Mean Platelet Volume 10.3 fL (9.4-12.4); Monocytes # (auto) 0.99 K/uL (0.11-0.59); Monocytes % (auto) 8.6 %; Neutrophils % (auto) 75.2 %; Platelet Count 301 K/uL (130-400); RDW Coefficient of Variation 15.2 % (11.5-14.5); RDW Standard Deviation 51.8 fL (36.4-46.3); Red Blood Count 4.72 M/uL (4.20-5.40); White Blood Count 11.56 K/ul (4.8-10.8)
[2022-12-26 02:43] LABS: BUN Creatinine Ratio 32.2 (10-20); Calcium 8.5 mg/dl (8.6-10.3); Creatinine Clr Calc Pharmacy 141.2 ml/min; Est GFR (African American) 109.9 ml/min; Est GFR (Non-African American) 94.8 ml/min; Potassium 3.1 mmol/L (3.5-5.1)
[2022-12-26 02:50] LABS: Troponin I High Sensitivity 22.7 pg/ml (0-14)
[2022-12-26] MEDS ORDERED: POTASSIUM CHLORIDE PWD 20 MEQ PACK PO STA (03:05)
[2022-12-26] MEDS: POTASSIUM CHLORIDE / WTR 10 MEQ/100 ML PLCT IV SCH ×4 (03:41→06:45)
[2022-12-26] MEDS: LEVOTHYROXINE SODIUM 112 MCG TABLET PO SCH (05:38)
[2022-12-26] MEDS: gemfibroziL 600 MG TAB PO SCH ×2 (07:52→20:15)
[2022-12-26] MEDS: FAMOTIDINE 20 MG TAB PO SCH ×2 (07:52→20:15)
[2022-12-26] MEDS: GABAPENTIN 600 MG TAB PO SCH ×2 (07:52→20:15)
[2022-12-26] MEDS: METOPROLOL TARTRATE 25 MG TAB PO SCH ×2 (07:53→20:15)
[2022-12-26] MEDS: DABIGATRAN ETEXILATE 75 MG CAP PO SCH ×2 (07:53→20:16)
[2022-12-26] MEDS: ASPIRIN 81 MG ECTAB PO SCH (07:54)
[2022-12-26] MEDS: allopurinoL 100 MG TAB PO SCH ×2 (07:54→20:15)
[2022-12-26] MEDS: dilTIAZem HCL 180 MG CAPCR PO SCH (07:54)
[2022-12-26] MEDS: LANTUS PER UNIT CHARGE SQ SCH ×2 (08:57→20:12)
[2022-12-26] MEDS: INSULIN ASPART PER UNIT CHARGE SC SCH ×4 (08:57→20:13)
[2022-12-26 10:24] LABS: Potassium 3.9 mmol/L (3.5-5.1)
[2022-12-26 10:30] LABS: Troponin I High Sensitivity 26.2 pg/ml (0-14)
[2022-12-26] MEDS: FLUTICASONE PROPIONATE NA SPR 16 GM BTL SCH (10:40)
[2022-12-26] MEDS ORDERED: SODIUM CHLORIDE 0.9% 500 ML IV SCH (11:00)
--- NOTE | 2022-12-26 12:34 | Electrocardiogram Report ---
Test Reason : Blood Pressure : / mmHG Vent. Rate : 096 BPM Atrial Rate : 108 BPM P-R Int : 000 ms QRS Dur : 106 ms QT Int : 372 ms P-R-T Axes : 000 -70 067 degrees QTc Int : 469 ms Poor data quality, interpretation may be adversely affected Atrial fibrillation Left anterior fascicular block Cannot rule out Anterior infarct , age undetermined Abnormal ECG When compared with ECG of 19-FEB-2019 20:58, Nonspecific T wave abnormality now evident in Anterior leads Confirmed by Lopez Lombardi ([id number]) on 12/26/2022 12:33:34 PM Referred By: REFERRED SELF Confirmed By:Lopez Lombardi
--- NOTE | 2022-12-26 15:11 | Hospitalist Progress Note ---
Date of Service December 26, 2022 Assessment & Plan (1) Acute gastroenteritis: Plan: Possible related to viral etiology CT abd/pelvis showed no acute infectious or inflammatory findings are identified in the abdomen or pelvis. large complex hernias in the right lower quadrant/pelvis as above which contain nonobstructed segments of small bowel and colon. Continue supportive care with IVF, antiemetic and diarrhea Continue monitor electrolytes Diet advanced to full liquid Continue monitor closely Hypokalemia Potassium 3.1 on admission K replaced Potassium 3.9 today Continue monitor electrolytes Elevate lactic acid Possible related to starvation/poor oral intake, vomiting and diarrhea No evidence of bacterial infection Continue gentle IVF Continue monitor CBC and lactic acid Elevate troponin Troponin 18 on admission, then peaked to 26 Denies any chest pain continue aspirin, statin and metoprolol Will continue trending troponin Continue monitor closely T2DM (type 2 diabetes mellitus): Most recent hab1c 7.0 on 12/25 Currently on lantus 15 units BID NovoLog sliding scale per protocol Monitor BGs HTN (hypertension): Continue valsartan/hydrochlorothiazide, metoprolol, diltiazem Monitor BP COPD (chronic obstructive pulmonary disease): No signs of acute exacerbation Nebs PRN HLD (hyperlipidemia): Continue atorvastatin Diabetic neuropathy: Continue gabapentin NAVI (obstructive sleep apnea): Noncompliant with CPAP CKD (chronic kidney disease) stage 3, GFR 30-59 ml/min: Cr at baseline Monitor BMP Hypothyroid: Continue levothyroxine Atrial fibrillation: Continue metoprolol, diltiazem On Pradaxa for anticoagulation Morbid obesity: Encouraged lifestyle modification BMI 46.3 Gout: Continue allopurinol DVT prophylaxis: Pradaxa Full code Patient sister requesting updates from providers. Mr. Annamarie Lu, contact #[phone]. Admission and Anticipated Discharge Date Admission Date: December 25, 2022 Subjective Pt was seen and examined for follow up Lying in bed with no acute distress Pt said that diarrhea and vomiting improve Denies any chest pain, palpitation, dizziness and SOB Review of Systems Review of Systems: All systems reviewed & are unremarkable except as noted in Subjective Physical Exam Physical Exam: General- No acute distress, morbid obese Head- atraumatic Eyes- PERRL, EOMI, ENT- oropharynx clear Neck- supple, no JVD Lungs- +decrease BS Heart- irregular rhythm; no murmur Abdomen- normal bowel sounds, soft, nontender Extremities- no calf tenderness Neuro- alert, oriented x 3; PERRL, EOMI; no facial palsy; no dysarthria Skin- warm & dry Results & Data Results & Data Vital Signs (Past 12 Hours) Vital Signs Temp Pulse Pulse Resp BP BP Pulse Ox 12/26/22 11:16 36.6 C 90 20 138/76 92 12/26/22 07:45 12/26/22 07:31 36.9 C 101 H 20 150/87 H 94 12/26/22 07:23 95 H 12/26/22 03:20 94 H 16 124/73 94 O2 Del Method O2 Flow Rate 12/26/22 11:16 Room Air 12/26/22 07:45 Nasal Cannula 1 12/26/22 07:31 Nasal Cannula 1 12/26/22 07:23 12/26/22 03:20 Room Air
[2022-12-26] MEDS: ATORVASTATIN 40 MG TAB PO SCH (20:15)
[2022-12-27] MEDS: LEVOTHYROXINE SODIUM 112 MCG TABLET PO SCH (05:32)
[2022-12-27 07:23] LABS: Hematocrit (blood only) 40.7 % (37.0-47.0); Hemoglobin 13.4 g/dl (12.0-16.0); Mean Corpuscular Hemoglobin 30.2 pg (25.0-34.0); Mean Corpuscular Hgb Conc 32.9 g/dL (32.0-36.0); Mean Corpuscular Volume 91.7 fL (80.0-100.0); Mean Platelet Volume 10.5 fL (9.4-12.4); Platelet Count 274 K/uL (130-400); RDW Coefficient of Variation 14.9 % (11.5-14.5); RDW Standard Deviation 49.9 fL (36.4-46.3); Red Blood Count 4.44 M/uL (4.20-5.40)
[2022-12-27 07:40] LABS: BUN Creatinine Ratio 25.5 (10-20); Calcium 8.5 mg/dl (8.6-10.3); Creatinine Clr Calc Pharmacy 164.9 ml/min; Est GFR (African American) 115.3 ml/min; Est GFR (Non-African American) 99.5 ml/min; Phosphorus 2.6 mg/dl (2.5-4.9); Potassium 3.8 mmol/L (3.5-5.1)
[2022-12-27] MEDS ORDERED: FUROSEMIDE 40 MG/4 ML VIAL IV ONE (07:50)
[2022-12-27] MEDS: INSULIN ASPART PER UNIT CHARGE SC SCH ×4 (08:47→21:08)
[2022-12-27] MEDS: LANTUS PER UNIT CHARGE SQ SCH ×2 (08:47→21:07)
[2022-12-27] MEDS: DABIGATRAN ETEXILATE 75 MG CAP PO SCH ×2 (08:47→21:06)
[2022-12-27] MEDS: FAMOTIDINE 20 MG TAB PO SCH ×2 (08:48→21:07)
[2022-12-27] MEDS: METOPROLOL TARTRATE 25 MG TAB PO SCH ×2 (08:48→21:06)
[2022-12-27] MEDS: ASPIRIN 81 MG ECTAB PO SCH (08:48)
[2022-12-27] MEDS: gemfibroziL 600 MG TAB PO SCH ×2 (08:48→21:07)
[2022-12-27] MEDS: allopurinoL 100 MG TAB PO SCH ×2 (08:48→21:06)
[2022-12-27] MEDS: dilTIAZem HCL 180 MG CAPCR PO SCH (08:48)
[2022-12-27] MEDS: GABAPENTIN 600 MG TAB PO SCH ×2 (08:49→21:05)
[2022-12-27] MEDS: FLUTICASONE PROPIONATE NA SPR 16 GM BTL SCH (08:49)
[2022-12-27 09:29] LABS: Troponin I High Sensitivity 59.9 pg/ml (0-14)
--- NOTE | 2022-12-27 15:12 | Electrocardiogram Report ---
Test Reason : Blood Pressure : / mmHG Vent. Rate : 065 BPM Atrial Rate : 258 BPM P-R Int : 000 ms QRS Dur : 104 ms QT Int : 462 ms P-R-T Axes : 000 -71 024 degrees QTc Int : 480 ms Atrial fibrillation Left anterior fascicular block Anterior infarct (cited on or before 25-DEC-2022) Abnormal ECG When compared with ECG of 25-DEC-2022 17:36, No significant change was found Confirmed by Lopez Lombardi ([id number]) on 12/27/2022 3:12:22 PM Referred By: REFERRED SELF Confirmed By:Lopez Lombardi
[2022-12-27] MEDS: ATORVASTATIN 40 MG TAB PO SCH (21:05)
--- NOTE | 2022-12-27 21:58 | Hospitalist Progress Note ---
Date of Service December 27, 2022 Assessment & Plan (1) Acute gastroenteritis: Plan: Possible related to viral etiology CT abd/pelvis showed no acute infectious or inflammatory findings are identified in the abdomen or pelvis. large complex hernias in the right lower quadrant/pelvis as above which contain nonobstructed segments of small bowel and colon. Continue supportive care with IVF, antiemetic and diarrhea Continue monitor electrolytes Diet advanced to full liquid Continue monitor closely Hypokalemia Potassium 3.1 on admission K replaced Potassium 3.8 today Continue monitor electrolytes Elevate lactic acid Possible related to starvation/poor oral intake, vomiting and diarrhea No evidence of bacterial infection Continue gentle IVF Continue monitor CBC and lactic acid Elevate troponin Troponin 18 on admission, then peaked to 59 EKG showed no acute changes Denies any chest pain continue aspirin, statin and metoprolol Will continue trending troponin Continue monitor closely T2DM (type 2 diabetes mellitus): Most recent hab1c 7.0 on 12/25 Currently on lantus 15 units BID NovoLog sliding scale per protocol Monitor BGs HTN (hypertension): Continue valsartan/hydrochlorothiazide, metoprolol, diltiazem Monitor BP COPD (chronic obstructive pulmonary disease): No signs of acute exacerbation Nebs PRN HLD (hyperlipidemia): Continue atorvastatin Diabetic neuropathy: Continue gabapentin NAVI (obstructive sleep apnea): Noncompliant with CPAP CKD (chronic kidney disease) stage 3, GFR 30-59 ml/min: Cr at baseline Monitor BMP Hypothyroid: Continue levothyroxine Atrial fibrillation: Continue metoprolol, diltiazem On Pradaxa for anticoagulation Morbid obesity: Encouraged lifestyle modification BMI 46.3 Gout: Continue allopurinol DVT prophylaxis: Pradaxa Full code Patient sister requesting updates from providers. Mr. Annamarie Lu, contact #[phone]. Admission and Anticipated Discharge Date Admission Date: December 25, 2022 Subjective Pt was seen and examined for follow up Lying in bed with no acute distress Pt said that she feels alot better She tolerates her diet Denies any chest pain, palpitation, dizziness and SOB Review of Systems Review of Systems: All systems reviewed & are unremarkable except as noted in Subjective Physical Exam Physical Exam: General- No acute distress, morbid obese Head- atraumatic Eyes- PERRL, EOMI, ENT- oropharynx clear Neck- supple, no JVD Lungs- +decrease BS Heart- irregular rhythm; no murmur Abdomen- normal bowel sounds, soft, nontender Extremities- no calf tenderness Neuro- alert, oriented x 3; PERRL, EOMI; no facial palsy; no dysarthria Skin- warm & dry Results & Data Results & Data Vital Signs (Past 12 Hours) Vital Signs Temp Pulse Pulse Resp BP BP Pulse Ox 12/27/22 20:06 36.8 C 83 18 141/82 H 92 12/27/22 16:00 36.9 C 69 20 136/91 93 12/27/22 15:00 67 12/27/22 11:51 37.2 C 56 L 20 141/73 H 95 O2 Del Method 12/27/22 20:06 Room Air 12/27/22 16:00 Room Air 12/27/22 15:00 12/27/22 11:51 Room Air
[2022-12-28] MEDS: LEVOTHYROXINE SODIUM 112 MCG TABLET PO SCH (06:14)
[2022-12-28 07:52] LABS: BUN Creatinine Ratio 19.7 (10-20); Calcium 8.9 mg/dl (8.6-10.3); Creatinine Clr Calc Pharmacy 125.7 ml/min; Est GFR (African American) 105.9 ml/min; Est GFR (Non-African American) 91.4 ml/min; Potassium 4.3 mmol/L (3.5-5.1)
[2022-12-28 08:08] LABS: Troponin I High Sensitivity 25.3 pg/ml (0-14)
[2022-12-28] MEDS ORDERED: FUROSEMIDE 40 MG/4 ML VIAL IV ONE (08:25)
[2022-12-28] MEDS: LANTUS PER UNIT CHARGE SQ SCH (09:42)
[2022-12-28] MEDS: INSULIN ASPART PER UNIT CHARGE SC SCH ×2 (09:42→12:16)
[2022-12-28] MEDS: allopurinoL 100 MG TAB PO SCH (09:49)
[2022-12-28] MEDS: ASPIRIN 81 MG ECTAB PO SCH (09:49)
[2022-12-28] MEDS: DABIGATRAN ETEXILATE 75 MG CAP PO SCH (09:49)
[2022-12-28] MEDS: FAMOTIDINE 20 MG TAB PO SCH (09:49)
[2022-12-28] MEDS: GABAPENTIN 600 MG TAB PO SCH (09:50)
[2022-12-28] MEDS: METOPROLOL TARTRATE 25 MG TAB PO SCH (09:50)
[2022-12-28] MEDS: dilTIAZem HCL 180 MG CAPCR PO SCH (09:50)
[2022-12-28] MEDS: gemfibroziL 600 MG TAB PO SCH (09:50)
[2022-12-28] MEDS: FLUTICASONE PROPIONATE NA SPR 16 GM BTL SCH (09:51)
[2022-12-28] MEDS ORDERED: bisacodyL 5 MG TABEC PO ONE (10:51)
[2022-12-28 13:01] LABS: Adenovirus F 40/41 PCR Not Detected (NotDetected); Astrovirus PCR Not Detected (NotDetected); Campylobacter PCR Not Detected (NotDetected); Cryptosporidium PCR Not Detected (NotDetected); Cyclospora cayetanensis PCR Not Detected (NotDetected); Entamoeba histolytica PCR Not Detected (NotDetected); Enteroaggregative E.coli(EAEC) Not Detected (NotDetected); Enteropathogenic E.coli (EPEC) Not Detected (NotDetected); Enterotoxigenic E.coli (ETEC) Not Detected (NotDetected); Giardia lamblia PCR Not Detected (NotDetected); Plesiomonas shigelloides PCR Not Detected (NotDetected); Rotavirus A PCR Not Detected (NotDetected); Salmonella PCR Not Detected (NotDetected); Sapovirus PCR Not Detected (NotDetected); Shiga-like Toxin E.coli (STEC) Not Detected (NotDetected); Shigella/Enteroinvasive E.coli Not Detected (NotDetected); Vibrio cholerae PCR Not Detected (NotDetected); Vibrio species PCR Not Detected (NotDetected); Yersinia enterocolitica PCR Not Detected (NotDetected)
[2022-12-28 13:06] LABS: Norovirus GI/GII PCR DETECTED (NotDetected)
--- NOTE | 2023-01-13 01:48 | Discharge Summary ---
Date of Service December 28, 2022 Admission HPI Per Admitting Provider History obtained from patient, family, and records. Medical history significant for A-fib on Pradaxa, hypertension, COPD, NAVI on BiPAP, DM2 insulin requiring, hypothyroidism, ovarian cancer status post surgery, anxiety/mood disorder, morbid obesity, past tobacco abuse. Last confinement April 2022 for post polypectomy GI bleed. Few days history of achy abdominal pain associated with nausea and vomiting, diarrhea. Patient not sure about bleeding as she did not look. No chest pain. No headache symptoms. Usual shortness of breath. Not sure about sick contacts given recent outpatient PCP visit. No recent antibiotic Rx. Was not able to take home medications for 2 days because she was not feeling well. Patient brought to ER for evaluation. 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 Admission Exam Per Admitting Provider GENERAL: Slightly uncomfortable, morbidly obese, pleasant, no respiratory distress SKIN: Normal color, warm HEENT: [place] palpebral conjunctivae, no ptosis, dry buccal mucosa NECK : Supple, short neck, no tenderness CHEST : Decreased breath sounds, no tenderness HEART : Irregular, no obvious murmurs ABDOMEN: Some distention, no overt tenderness EXTREMITIES : Minimal LE swelling, no LE tenderness, no other conspicuous deformities noted NEUROLOGIC : Coherent, no facial asymmetry, no other gross focality Principal Diagnosis Acute Viral gastroenteritis Hypokalemia Elevate lactic acid Elevate troponin T2DM (type 2 diabetes mellitus): HTN (hypertension): COPD (chronic obstructive pulmonary disease): HLD (hyperlipidemia): Discharge Exam General- No acute distress, morbid obese Head- atraumatic Eyes- PERRL, EOMI, ENT- oropharynx clear Neck- supple, no JVD Lungs- +decrease BS Heart- irregular rhythm; no murmur Abdomen- normal bowel sounds, soft, nontender Extremities- no calf tenderness Neuro- alert, oriented x 3; PERRL, EOMI; no facial palsy; no dysarthria Skin- warm & dry Discharge Data Allergies Allergy/AdvReac Type Severity Reaction Status Date / Time GIN Inhibitors Allergy Unknown UNK Verified 12/16/22 14:59 cat dander Allergy Unknown UNK Verified 12/16/22 14:59 codeine Allergy Unknown Nausea Verified 12/16/22 14:59 house dust Allergy Unknown Unknown Verified 12/16/22 14:59 hydrocodone Allergy Unknown Nausea Verified 12/16/22 14:59 meperidine Allergy Unknown Nausea Verified 12/16/22 14:59 morphine Allergy Unknown Nausea Verified 12/16/22 14:59 pioglitazone Allergy Unknown UNK Verified 12/16/22 14:59 tree and shrub pollen Allergy Unknown Unknown Verified 12/16/22 14:59 nickel AdvReac Intermediate Redness of Verified 12/16/22 14:59 Skin Cockroach Allergy Unknown UNK Uncoded 12/16/22 14:59 Consultations 12/25/22 19:48 ED Decision to Admit Stat Ordered Studies 12/25/22 16:10 CT abd pelvis IV con only Stat Laboratory Results WBC 11.90 K/ul (4.8-10.8) H 12/27/22 06:11 RBC 4.44 M/uL (4.20-5.40) 12/27/22 06:11 Hgb 13.4 g/dl (12.0-16.0) 12/27/22 06:11 Hct 40.7 % (37.0-47.0) 12/27/22 06:11 MCV 91.7 fL (80.0-100.0) 12/27/22 06:11 MCH 30.2 pg (25.0-34.0) 12/27/22 06:11 MCHC 32.9 g/dL (32.0-36.0) 12/27/22 06:11 RDW Std Deviation 49.9 fL (36.4-46.3) H 12/27/22 06:11 RDW Coeff of Faraz 14.9 % (11.5-14.5) H 12/27/22 06:11 Plt Count 274 K/uL (130-400) 12/27/22 06:11 MPV 10.5 fL (9.4-12.4) 12/27/22 06:11 Immature Gran % (Auto) 0.5 % 12/26/22 01:59 Neut % (Auto) 75.2 % 12/26/22 01:59 Lymph % (Auto) 15.5 % 12/26/22 01:59 [place] % (Auto) 8.6 % 12/26/22 01:59 Eos % (Auto) 0.0 % 12/26/22 01:59 Baso % (Auto) 0.2 % 12/26/22 01:59 Neut # (Auto) 8.70 K/uL (1.40-6.50) H 12/26/22 01:59 Lymph # (Auto) 1.79 K/uL (1.2-3.4) 12/26/22 01:59 [place] # (Auto) 0.99 K/uL (0.11-0.59) H 12/26/22 01:59 Eos # (Auto) 0.00 K/uL (0-0.50) 12/26/22 01:59 Baso # (Auto) 0.02 K/uL (0-0.2) 12/26/22 01:59 Immature Gran # (Auto) 0.06 K/uL (0.01-0.20) 12/26/22 01:59 PT 12.4 Seconds (9.0-12.0) H 12/25/22 16:17 INR 1.2 (0.9-1.1) H 12/25/22 16:17 APTT 28.5 Seconds (21.0-31.0) 12/25/22 16:17 PTT Ratio 1.0 12/25/22 16:17 Sodium 138 mmol/L (136-145) 12/28/22 06:22 Potassium 4.3 mmol/L (3.5-5.1) 12/28/22 06:22 Chloride 102 mmol/L (98-107) 12/28/22 06:22 Carbon Dioxide 29 mmol/L (21-32) 12/28/22 06:22 Anion Gap 7 (3-11) 12/28/22 06:22 BUN 13 mg/dl (6-23) 12/28/22 06:22 Creatinine 0.66 mg/dl (0.6-1.2) 12/28/22 06:22 Est Cr Clr Drug Dosing 125.7 ml/min 12/28/22 06:22 Est GFR ( Amer) 105.9 ml/min 12/28/22 06:22 Est GFR (Non-Af Amer) 91.4 ml/min 12/28/22 06:22 BUN/Creatinine Ratio 19.7 (10-20) 12/28/22 06:22 Glucose 170 mg/dl (70-99(Fasting)) H 12/28/22 06:22 POC Glucose 183 mg/dl (70-99) H 12/28/22 11:58 Estimat Average Glucose 154 mg/dl 12/25/22 22:24 Hemoglobin A1c 7.0 % (4.5-5.6) H 12/25/22 22:24 Lactate 1.7 mmol/L (0.4-2.0) 12/26/22 22:46 Calcium 8.9 mg/dl (8.6-10.3) 12/28/22 06:22 Phosphorus 2.6 mg/dl (2.5-4.9) 12/27/22 06:11 Magnesium 2.0 mg/dl (1.7-2.4) 12/27/22 06:11 Total Bilirubin 0.7 mg/dl (0.2-1.0) 12/25/22 16:17 AST 29 U/L (13-39) 12/25/22 16:17 ALT 24 U/L (7-52) 12/25/22 16:17 Alkaline Phosphatase 73 U/L (34-104) 12/25/22 16:17 Troponin I High Sens 25.3 pg/ml (0-14) H D 12/28/22 06:22 B-Natriuretic Peptide 178 pg/ml (0-100) H 12/25/22 16:11 Total Protein 6.9 gm/dl (6.0-8.3) 12/25/22 16:17 Albumin 3.8 gm/dl (3.4-5.0) 12/25/22 16:17 Globulin 3.1 gm/dl (2.5-4.0) 12/25/22 16:17 Albumin/Globulin Ratio 1.2 (0.9-2) 12/25/22 16:17 Lipase 16 U/L (11-82) 12/25/22 16:17 Procalcitonin 0.05 ng/ml (0-0.5) 12/27/22 06:11 TSH 0.450 uIu/ml (0.300-4.500) 12/25/22 22:24 Urine Color Dark Yellow 12/25/22 20:05 Urine Appearance Clear (Clear) 12/25/22 20:05 Urine pH 7.5 (4.5-7.5) 12/25/22 20:05 Ur Specific [place] 1.043 (1.000-1.030) H 12/25/22 20:05 Urine Protein 2+ (Negative) H 12/25/22 20:05 Urine Glucose (UA) Negative (Negative) 12/25/22 20:05 Urine Ketones Trace (Negative) H 12/25/22 20:05 Urine Blood Negative (Negative) 12/25/22 20:05 Urine Nitrite Negative (Negative) 12/25/22 20:05 Urine Bilirubin Negative (Negative) 12/25/22 20:05 Urine Urobilinogen Negative (Negative) 12/25/22 20:05 Ur Leukocyte Esterase Negative (Negative) 12/25/22 20:05 Urine WBC (Auto) 1-5 /hpf (0-5) 12/25/22 20:05 Urine RBC (Auto) 0-4 /hpf (0-4) 12/25/22 20:05 U Hyaline Cast (Auto) 0 /lpf (0-5) 12/25/22 20:05 U Epithel Cells (Auto) 20-30 /lpf (0-5) H 12/25/22 20:05 Urine Bacteria (Auto) Negative (Negative) 12/25/22 20:05 Stl C. cayetanensis PCR Not Detected (NotDetected) 12/28/22 Unknown Stool Rotavirus A PCR Not Detected (NotDetected) 12/28/22 Unknown Stl Adenov F 40/41 PCR Not Detected (NotDetected) 12/28/22 Unknown Stool Astrovirus (PCR) Not Detected (NotDetected) 12/28/22 Unknown Stool Campylobacter PCR Not Detected (NotDetected) 12/28/22 Unknown Stool Cryptosporidium PCR Not Detected (NotDetected) 12/28/22 Unknown Stl E.coli Shiga Tox PCR Not Detected (NotDetected) 12/28/22 Unknown Stl Enterotoxigenic E PCR Not Detected (NotDetected) 12/28/22 Unknown Stool EPEC (PCR) Not Detected (NotDetected) 12/28/22 Unknown Stool EAEC (PCR) Not Detected (NotDetected) 12/28/22 Unknown Stl E. histolytica PCR Not Detected (NotDetected) 12/28/22 Unknown Stool Giardia Lamblia PCR Not Detected (NotDetected) 12/28/22 Unknown Stool Salmonella PCR Not Detected (NotDetected) 12/28/22 Unknown Stool Sapovirus (PCR) Not Detected (NotDetected) 12/28/22 Unknown Stl P. shigelloides PCR Not Detected (NotDetected) 12/28/22 Unknown Stl Shigella/EIEC PCR Not Detected (NotDetected) 12/28/[address].enterocolitica PCR Not Detected (NotDetected) 12/28/22 Unknown Stool Vibrio (PCR) Not Detected (NotDetected) 12/28/22 Unknown Stl Vibrio cholerae PCR Not Detected (NotDetected) 12/28/22 Unknown Stl Norovirus GI/GII PCR DETECTED (NotDetected) A* 12/28/22 Unknown SARS-CoV-2 (PCR) NEGATIVE (Negative) 12/25/22 Unknown Influenza Type A (PCR) Negative (Neg) 12/25/22 Unknown Influenza Type B (PCR) Negative (Neg) 12/25/22 Unknown RSV (RT-PCR) Negative (Neg) 12/25/22 Unknown Impressions Abdomen/Pelvis CT 12/25/22 16:10 CT SCAN OF THE ABDOMEN AND PELVIS WITH IV CONTRAST CLINICAL HISTORY: Generalized abdominal pain. Nausea and vomiting. Diarrhea. COMPARISON STUDY: Abdominal CT dated 04/20/2022. TECHNIQUE: Following the IV administration of 114 cc of Optiray 320, CT scan of the abdomen and pelvis is performed from the lung bases to the proximal femora. Images are reviewed in the axial, sagittal, and coronal planes. IV contrast was administered without complication. A dose lowering technique was utilized adhering to the principles of ALARA. The examination is degraded by large body habitus, and by streak artifact from the body wall abutting the CT gantry. There is also motion artifact. CT DOSE: 1842.11 mGy.cm FINDINGS: Lung bases: The heart is normal in size and without pericardial effusion. There are coronary artery calcifications. A tiny hiatal hernia is noted. The lung bases are clear noting mild bibasilar scarring/atelectasis. Liver: The contrast-enhanced liver is enlarged, measuring 21.4 cm in length. There is geographic hepatic steatosis. There is mild intrahepatic biliary ductal dilatation. The hepatic veins and portal veins are patent. Gallbladder: Surgically absent and clips in the gallbladder fossa. Spleen: Normal in size and attenuation. Pancreas: Moderately atrophic and grossly unremarkable. Adrenal glands: Unremarkable. Kidneys: The contrast enhanced kidneys are normal in size and without hydronephrosis. The kidneys enhance symmetrically. Abdominal vasculature: The abdominal aorta is normal in course and caliber noting moderate atherosclerotic calcification. Bowel: There is a large complex hernia in the right lower quadrant/pelvis. The more superior component of the hernia on image #298 contains a segment of colon. The larger and more inferiorly located component contains several nonobstructed loops of small bowel. There is no evidence of obstruction. A 4.5 x 2.5 cm pocket of peripherally enhancing fluid is seen anteriorly within the hernia sac on im age #426. There is advanced colonic diverticulosis without CT evidence of acute diverticulitis. The appendix is not identified and reported surgically absent. A 2.3 cm gastric lipoma is seen on image #233. Peritoneum: There is no intraperitoneal free air or abdominal ascites. Lymphadenopathy: None. Pelvic viscera: The bladder is normal as visualized. The uterus is surgically absent. No adnexal lesion is seen. Skeletal structures: The skeletal structures are heterogeneously osteopenic. There is moderate lumbosacral spondylosis. No lytic or blastic lesions are seen. IMPRESSION: 1. No acute infectious or inflammatory findings are identified in the abdomen or pelvis. 2. There are large complex hernias in the right lower quadrant/pelvis as above which contain nonobstructed segments of small bowel and colon. 3. A small collection is seen within the anterior/inferior aspect of the larger and more inferior component of the hernia. This is similar to the 04/20/2022 examination and may represent a postoperative seroma. The sterility of this fluid cannot be assessed by imaging and clinical correlation will be required. 4. The liver is enlarged with evidence of geographic steatosis. 5. Advanced colonic diverticulosis without CT evidence of acute diverticulitis. 6. Additional findings as above. ACT 112: Negative or not required by law. Electronically signed by: Jagjit Hagen M.D. 12/25/2022 7:17 PM Chest X-Ray 12/25/22 16:11 SINGLE VIEW CHEST CLINICAL HISTORY: Dyspnea. FINDINGS: An AP, portable, upright chest radiograph is compared to study dated 02/19/2019. The examination is degraded by portable technique and patient rotation. The heart is enlarged. There is mild pulmonary vascular congestion. Atelectasis is noted at the lung bases. No large pleural effusion or pneumothorax is seen. The skeletal structures are osteopenic. The bony thorax is grossly intact. Arthritic change is seen in the shoulders. IMPRESSION: Cardiomegaly with mild pulmonary vascular congestion. ACT 112: Negative or not required by law. Electronically signed by: Jagjit Hagen M.D. 12/25/2022 6:20 PM Hospital Course (1) Acute gastroenteritis: Possible related to viral etiology CT abd/pelvis showed no acute infectious or inflammatory findings are identified in the abdomen or pelvis. large complex hernias in the right lower quadrant/pelvis as above which contain nonobstructed segments of small bowel and colon. Continue supportive care with IVF, antiemetic and diarrhea Continue monitor electrolytes Diet advanced to full liquid Continue monitor closely Hypokalemia Potassium 3.1 on admission K replaced Potassium 3.8 today Continue monitor electrolytes Elevate lactic acid Possible related to starvation/poor oral intake, vomiting and diarrhea No evidence of bacterial infection Continue gentle IVF Continue monitor CBC and lactic acid Elevate troponin Troponin 18 on admission, then peaked to 59 EKG showed no acute changes Denies any chest pain continue aspirin, statin and metoprolol Will continue trending troponin Continue monitor closely T2DM (type 2 diabetes mellitus): Most recent hab1c 7.0 on 12/25 Currently on lantus 15 units BID NovoLog sliding scale per protocol Monitor BGs HTN (hypertension): Continue valsartan/hydrochlorothiazide, metoprolol, diltiazem Monitor BP COPD (chronic obstructive pulmonary disease): No signs of acute exacerbation Nebs PRN HLD (hyperlipidemia): Continue atorvastatin Diabetic neuropathy: Continue gabapentin NAVI (obstructive sleep apnea): Noncompliant with CPAP CKD (chronic kidney disease) stage 3, GFR 30-59 ml/min: Cr at baseline Monitor BMP Hypothyroid: Continue levothyroxine Atrial fibrillation: Continue metoprolol, diltiazem On Pradaxa for anticoagulation Morbid obesity: Encouraged lifestyle modification BMI 46.3 Gout: Continue allopurinol DVT prophylaxis: Pradaxa Full code Patient sister requesting updates from providers. Mr. Annamarie Lu, contact #[phone]. Total Time Total Time Spent Total Time Spent (In Minutes): 35 minutes Discharge Plan Discharge Items Patient Disposition: Home - Self-Care Reason For Visit: HYPOKALEMIA Discharge Diagnosis: Acute Viral gastroenteritis Hypokalemia Elevate lactic acid Elevate troponin T2DM (type 2 diabetes mellitus): HTN (hypertension): COPD (chronic obstructive pulmonary disease): HLD (hyperlipidemia): Activity: Resume your previous activity Non-emergency contact: Primary Care Provider Call non-emergency contact if: you have any medication questions Follow-up/Referrals: Mohsen Vazquez MD [Primary Care Provider] - (Date & Time 01/04/2023 11:00 AM Provider Mohsen Vazquez MD [facility] ) Diet: Carb Consistent or DM2 Addtl Attending Provider Instructions: Follow up with your primary care provider 01/04/2023 @ 11:00 AM Mohsen Vazquez MD [facility] Check BMP in 1 week to monitor your electrolytes Continue monitor your blood sugar Continue CPAP at night Seek medical attention if your symptoms worsening Pending Studies at Discharge: No Stand-Alone Forms: My Ixchelsis, Smoking Cessation Medications and DC Order Prescriptions: Continued (DME) pen needle, diabetic [Clickfine Pen Needle] 31 gauge x 5/16" needle See Rx Instructions .Route Qty: 500 3RF Rx Instructions: Use 5 per day coenzyme Q10 10 mg capsule 10 mg PO QAM magnesium 200 mg tablet 100 mg PO QAM ascorbic acid (vitamin C) 1,000 mg tablet 1 g PO QAM [id number] mg tablet 1 tab PO BID zinc 50 mg tablet 100 mg PO QAM atorvastatin 40 mg Tablet 40 mg PO HS gabapentin 600 mg Tablet 600 mg PO BID diltiazem HCl 360 mg capsule,extended release 24 hr 360 mg PO QAM allopurinol 100 mg Tablet 100 mg PO BID aspirin [Tiara Low Dose Aspirin] 81 mg Tablet,Delayed Release (Dr/Ec) 81 mg PO QAM gemfibrozil 600 mg Tablet 600 mg PO BID mometasone 50 mcg/actuation [place],Non-Aerosol 2 spray INTRANASAL QAM levothyroxine 112 mcg Tablet 112 mcg PO QAM metoprolol tartrate 25 mg Tablet 25 mg PO BID albuterol sulfate 2.5 mg /3 mL (0.083 %) Solution For Nebulization 2.5 mg INHALATION Q4H PRN (Reason: Wheezing) diclofenac sodium 1 % gel 2 g topical QID dabigatran etexilate [Pradaxa] 150 mg Capsule 150 mg PO BID Qty: 14 0RF Rx Instructions: resume 04/19 if no further bleeding famotidine [Pepcid] 20 mg Tablet 20 mg PO BID furosemide [Lasix] 40 mg Tablet 40 mg PO BID PRN (Reason: swelling) insulin lispro [Humalog KwikPen Insulin] 100 unit/mL insulin pen 100 unit SUBCUT TID Rx Instructions: inject with meals plus sliding scale : 35 u SQ AM, 15u SQ 2PM, 30u SQ PM insulin glargine [Lantus Solostar U-100 Insulin] 100 unit/mL (3 mL) insulin pen 50 unit SUBCUT BID potassium 99 meq PO DAILY Discharge Orders: Discharge Order (Routine); Ordered 12/28/22 Ordered By: Ashly Cabello/Other Patient Handouts: Managing Type 2 Diabetes Admission Data Admit Date/Time: 12/25/22 20:34 Attending Provider: Ashly Sagastume Admit Provider: Duarte Dempsey Primary Care Provider: Mohsen Vazquez Other Providers: Duarte Dempsey Other Interventions: Discharge Summary Assessment (RN) Last Done: 12/28/22 14:55
== END 2022-12-28 15:51 | disposition home or self-care (01) ==
LOC: ED 16:05 → 2N 16:05

== ENCOUNTER 2024-12-17 15:37 | Inpatient (IN) ==
[2024-12-17 16:59] LABS: Basophils # (auto) 0.06 K/uL (0.00-0.20); Basophils % (auto) 0.3 %; Eosinophils # (auto) 0.01 K/uL (0.00-0.50); Eosinophils % (auto) 0.1 %; Immature Granulocytes # (auto) 0.12 K/uL (0.01-0.20); Immature Granulocytes % (auto) 0.7 %; Lymphocytes # (auto) 1.97 K/uL (1.20-3.40); Lymphocytes % (auto) 11.5 %; Mean Corpuscular Hemoglobin 30.1 pg (25.0-34.0); Mean Corpuscular Hgb Conc 33.3 g/dL (32.0-36.0); Mean Corpuscular Volume 90.2 fL (80.0-100.0); Mean Platelet Volume 10.3 fL (9.4-12.4); Monocytes # (auto) 0.99 K/uL (0.11-0.59); Monocytes % (auto) 5.8 %; Neutrophils # (auto) 14.03 K/uL (1.40-6.50); Neutrophils % (auto) 81.6 %; Platelet Count 393 K/uL (130-400); RDW Coefficient of Variation 15.8 % (11.5-14.5); RDW Standard Deviation 51.6 fL (36.4-46.3); Red Blood Count 5.32 M/uL (4.20-5.40); White Blood Count 17.18 K/ul (4.8-10.8)
[2024-12-17 17:13] LABS: Albumin Globulin Ratio 1.2 (0.9-2); Albumin Level 4.1 gm/dl (3.4-5.0); BUN Creatinine Ratio 16.7 (10-20); Bilirubin,Total 0.9 mg/dl (0.2-1.0); Creatinine Clr Calc Pharmacy 101.5 ml/min; Globulin 3.4 gm/dl (2.5-4.0); Potassium 3.6 mmol/L (3.5-5.1); Total Protein 7.5 gm/dl (6.0-8.3)
--- NOTE | 2024-12-17 17:13 | Emergency Department Note ---
Impression & Plan SBO (small bowel obstruction), Obesity, morbid, BMI 50 or higher, Abdominal wall hernia ED Provider Note CHIEF COMPLAINT: Abdominal pain HISTORY OF PRESENTING ILLNESS: This 69-year-old female patient presents to the emergency department with her sister for evaluation of abdominal pain, nausea, and vomiting. She has had abdominal pain for the past 2 days. She has also had some mild urinary symptoms as well. She has a large right inguinal hernia that she is concerned may be incarcerated. She has had the hernia since her ovarian cancer surgery in 2019. She states that she has been unable to have the hernia repaired until she lost enough weight. She has also had nausea and vomiting. Denies any diarrhea. The patient states that she has been having small bowel movements, but she does not remember exactly when her last bowel movement was. The patient cannot remember if she is passing gas or not. Denies any chest pain or SOB. Denies any fevers. Denies any cough or URI symptoms. The patient is on Pradaxa. The patient states that she had her previous surgery for the ovarian cancer in [place] through a [facility] facility. She was then seen by a surgeon in [place] to discuss the possible hernia repair, but they did not feel comfortable performing the hernia repair until she lost a significant amount of weight per the patient and her sister. REVIEW OF SYSTEMS: See HPI for pertinent positives and pertinent negatives. ALLERGIES: See below MEDICATIONS: See below PAST MEDICAL HISTORY: See below PHYSICAL EXAM: VITALS: Vitals are noted on the nurse's note and reviewed by myself. GENERAL: Non toxic, in no acute distress, non-diaphoretic. The patient is obese. SKIN: Capillary refill <2 sec. EYES: PERRLA. EOMI. Conjunctivae without injection, sclerae without icterus. NOSE: Patent without discharge. MOUTH: Mucous membranes moist. Uvula midline. Airway patent. NECK: Supple without nuchal rigidity. HEART: Regular rate and rhythm without murmurs gallops or rubs. LUNGS: Clear to auscultation bilaterally without wheezes, rales or rhonchi. No retractions or accessory muscle use. ABDOMEN: Positive bowel sounds x 4. The patient is obese with a large abdomen with multiple areas of outpouching from scar tissue and her previous incision scars. There is a more tender and hard area centrally with no color changes. The area is unable to be reduced on my initial exam. The other areas of outpouching and inflammation do not appear to be tender to palpation or hard/indurated. No obvious fluctuance noted. No erythema or signs of infection. Han sign negative. No CVA tenderness. No guarding, rigidity, or rebound tenderness. No focal RLQ or LLQ tenderness. MUSCULOSKELETAL: No gross musculoskeletal defects. NEURO: Patient was alert and oriented. No focal neurological deficits. DIFFERENTIAL DIAGNOSIS: Differential diagnosis includes hepatitis, pancreatitis, cholecystitis, cholelithiasis, appendicitis, kidney stone, pyelonephritis, UTI, gastritis, gastroenteritis, mesenteric adenitis, obstruction, constipation, hernia, abdominal abscess, perforation, diverticulitis, IBD, ischemic colitis, abdominal aortic aneurysm, , ectopic , ovarian cyst, ovarian torsion, acute salpingitis, or others. ED COURSE AND MEDICAL DECISION MAKING: HISTORY FROM INDEPENDENT HISTORIAN: Additional history obtained from the patient's sister. MEDICATIONS GIVEN: Tylenol 1000 mg IV. 250 mL normal saline solution bolus. MONITOR: Continuous oval or circular glass cutter: Order was placed for continuous oval or circular glass cutter. Patient was placed on the oval or circular glass cutter and continuous pulse ox. Patient was noted to be in normal sinus rhythm at an initial rate of 90 bpm per my interpretation. INTERPRETATION OF LABS: I interpreted the labs with full lab results as below in the lab section of this note. Laboratory results pertinent to the emergent complaint are discussed in the MDM section below. The patient was advised to follow up with their PCP and/or specialist(s) for further outpatient monitoring and management of any abnormal results. INTERPRETATION OF IMAGING: Imaging studies were interpreted by myself and read by radiology as per the imaging section of this note. The patient was advised to follow up with their PCP and/or specialist(s) for further outpatient management of any non-emergent abnormal findings. CT scan of the abdomen pelvis with IV contrast showed findings concerning for small bowel obstruction. No pneumatosis or portal venous gas. Probable transition point in the large right sided abdominal wall hernia. Chest x-ray to confirm NG tube placement shows that the NG tube is in an appropriate location with the distal tip below the left hemidiaphragm. There is cardiomegaly with prominent bronchovascular markings in the bilateral lung manriquez which are suggestive of congestive changes which are stable. Haziness in the left lower zone and costophrenic angle is likely projectional versus mild atelectatic changes which are stable. CHRONIC MEDICAL/SOCIAL CONDITIONS AFFECTING CARE: Morbid obesity. Chronic abdominal wall hernia. CONSULTATIONS: Dr. Clay of general surgery. On-call hospitalist. [facility] SUMMARY: The patient was seen during a time of extreme volume and extreme acuity. Nursing triage protocols were initiated with IV lock, labs, and/or imaging studies conducted by protocol in the triage area. The patient was examined by myself once they were taken back to an exam room. The patient has had nausea, vomiting, and abdominal pain for the past 2 days. The patient is concerned that her large hernia may be incarcerated. The patient is a somewhat poor historian along with her sister who is also a somewhat poor historian. The patient cannot remember when she had her last bowel movement or when she last passed gas. The patient did not have any nausea or vomiting while in the emergency department and she declined any Zofran or other antinausea medicine while in the ER. The patient was given Tylenol 1000 mg IV with improvement of her pain. She was also given a 250 mL normal saline solution bolus. White blood cell count elevated at 17.18. She denies any fevers or URI symptoms. Hemoglobin normal at 16. Platelet count normal at 393. INR 1.2, PT 12.5, APTT 40. Glucose 160 and alk phos 139. CMP otherwise normal. Lipase normal. High-sensitivity troponin normal. The patient was unable to give a urine sample while in the ER. CT scan of the abdomen pelvis with IV contrast showed findings concerning for small bowel obstruction. No pneumatosis or portal venous gas. Probable transition point in the large right sided abdominal wall hernia. I spoke with Dr. Clay of general surgery given the patient's complex past surgical history, morbid obesity, and her small bowel obstruction. Dr. Clay was able to obtain some records through [facility] that confirmed the patient had a total abdominal hysterectomy in 2019 due to her ovarian cancer. At the same time she also had an omentectomy and appendectomy. She is on Pradaxa for A-fib. The patient is unable to adequately recall when the last time she had a bowel movement and when the last time she was known to have passed gas. However, she continues to deny any nausea or vomiting and she states that her abdominal pain significantly improved after the IV Tylenol and her abdominal tenderness also improved on repeat exam after the IV Tylenol. Given the patient's improvement in her symptoms with minimal intervention, the patient was felt stable to be admitted to medicine with surgical consult at this time. However, if she requires any surgery, this will most likely need to be done at a tertiary care center due to her comorbidities, large hernia, loss of domain of her abdomen, and morbid obesity. Please refer to Dr. Clay's dictation for further details. Dr. Clay recommended an NG tube be placed and the patient's Pradaxa held. An NG tube was placed. Chest x-ray to confirm NG tube placement shows that the NG tube is in an appropriate location with the distal tip below the left hemidiaphragm. There is cardiomegaly with prominent bronchovascular markings in the bilateral lung manriquez which are suggestive of congestive changes which are stable. Haziness in the left lower zone and costophrenic angle is likely projectional versus mild atelectatic changes which are stable. Chest x-ray to confirm NG tube placement shows that the NG tube is in an appropriate location with the distal tip below the left hemidiaphragm. There is cardiomegaly with prominent bronchovascular markings in the bilateral lung manriquez which are suggestive of congestive changes which are stable. Haziness in the left lower zone and costophrenic angle is likely projectional versus mild atelectatic changes which are stable. I had a meaningful discussion about this patient with Dr. Lorenz who agrees with my assessment and the treatment plan. I spoke with the on-call hospitalist who agreed to admit the patient for further evaluation and treatment. Please refer to their dictation for further details. The patient's care was transferred in stable condition. DIAGNOSIS: Small bowel obstruction Large right sided abdominal wall hernia Morbid obesity Past Med/Surg History Problem List (Updated 12/18/24 @ 01:44 by Mariola Paredes PA-C) Abdominal wall hernia (Acute) SBO (small bowel obstruction) (Acute) Uncontrolled type 2 diabetes mellitus with hyperglycemia, with long-term current use of insulin Neuropathy, Mild Nephropathy, Macrovascular complications Diabetes mellitus type 2, controlled, with complications Neuropathy, Mild Nephropathy, Macrovascular History of colon polyps Genetic defect Obesity, morbid, BMI 50 or higher (Chronic) Renal lesion Chronic anticoagulation (Chronic) Ambulatory dysfunction (Chronic) Altered mental status (Chronic) HTN (hypertension) (Chronic) HLD (hyperlipidemia) (Chronic) COPD (chronic obstructive pulmonary disease) (Chronic) NAVI (obstructive sleep apnea) (Chronic) cpap Diabetic neuropathy (Chronic) GERD (gastroesophageal reflux disease) (Chronic) Depression (Chronic) Hypothyroid (Chronic) Gout (Chronic) Atrial fibrillation (Chronic) Medical History Elevated troponin Loss of protective sensation of skin of foot Rectal bleed Lower gastrointestinal hemorrhage Nausea and vomiting after administration of anesthetic agent Hx of ovarian cancer 2018- surgical intervention, [facility] Liver lesion Liver cell injury Ovarian cancer on right 28 lb R adnexal mass removed 07/22/19 Edema Closed head injury Syncope Leg wound, right Atrial fibrillation with rapid ventricular response (07/14/14) - follows w/ dr norris last visit 1 yr ago- takes pradaxa Surgical History S/P appendectomy during hysterectomy S/P hysterectomy Status post colonoscopy with polypectomy History of cholecystectomy History of hernia repair during hysterectomy Family History Father Myocardial infarction Coronary heart disease Diabetes Mother Complication of surgery Diabetes Sister Diabetes Sister Diabetes Brother Diabetes "Pre-diabetic" Sister Diabetes Sister Gestational diabetes Grandmother (Paternal) Diabetes Grandmother (Maternal) Diabetes Social History Smoking Status: Never smoker Cigarettes Per Day: 0; Second Hand Exposure: No; Do You Dip or Chew Tobacco: No; Hx Alcohol Use: No Hx Substance Use: No Preferred Language: Maltese Communication Ability: Effective Waste Chopper Required: Yes Beliefs That Will Affect Care: None marital status: / Current Living Situation: Alone Current Living Situation Comment: Lives at home with daugther, son in law and grandchildren Feels Safe at Home: Yes Assistive Devices: Glasses Allergies Allergies Allergy/AdvReac Type Severity Reaction Status Date / Time GIN Inhibitors Allergy Unknown UNK Verified 12/17/24 15:57 cat dander Allergy Unknown UNK Verified 12/17/24 15:57 cockroach Allergy Unknown Unknown Verified 12/17/24 23:43 codeine Allergy Unknown Nausea Verified 12/17/24 15:57 house dust Allergy Unknown Unknown Verified 12/17/24 15:57 hydrocodone Allergy Unknown Nausea Verified 12/17/24 15:57 meperidine Allergy Unknown Nausea Verified 12/17/24 15:57 morphine Allergy Unknown Nausea Verified 12/17/24 15:57 pioglitazone Allergy Unknown UNK Verified 12/17/24 15:57 tree and shrub pollen Allergy Unknown Unknown Verified 12/17/24 15:57 nickel AdvReac Intermediate Redness of Verified 12/17/24 15:57 Skin Home Meds Home Medications Medication Instructions Recorded Confirmed allopurinol 100 mg tablet 100 mg PO BID 09/28/18 12/17/24 aspirin 81 mg tablet,delayed 81 mg PO QAM 09/28/18 12/17/24 release (Tiara Low Dose Aspirin) atorvastatin 40 mg tablet 40 mg PO HS 09/28/18 12/17/24 gemfibrozil 600 mg tablet 600 mg PO BID 09/28/18 12/17/24 levothyroxine 112 mcg tablet 112 mcg PO QAM 09/28/18 12/17/24 metoprolol tartrate 25 mg tablet 25 mg PO BID 09/28/18 12/17/24 mometasone 50 mcg/actuation nasal 2 spray intranasal QAM 09/28/18 12/17/24 spray diclofenac sodium 1 % topical gel 2 g topical QID 12/09/18 12/17/24 albuterol sulfate 2.5 mg/3 mL 2.5 mg inhalation Q4H PRN Wheezing 02/19/19 12/17/24 (0.083 %) solution for nebulization ascorbic acid (vitamin C) 1,000 mg 1 g PO QAM 08/01/20 12/17/24 tablet glucosamine 375 [id number] 1 tab PO BID 08/01/20 12/17/24 no1 500 mg-C 15 mg-donald 0.5 mg tablet magnesium 200 mg tablet 100 mg PO QAM 08/01/20 12/17/24 zinc 50 mg tablet 100 mg PO QAM 08/01/20 12/17/24 potassium 99 meq PO QAM 12/25/22 12/17/24 famotidine 20 mg tablet (Pepcid) 20 mg PO BID 11/10/23 12/17/24 furosemide 40 mg tablet (Lasix) 40 mg PO BID PRN swelling 11/10/23 12/17/24 benzonatate 100 mg capsule 100 mg PO TID PRN Cough 03/23/24 12/17/24 coenzyme Q10 400 mg capsule 400 mg PO DAILY 03/23/24 12/17/24 diltiazem HCl 360 mg capsule,24 360 mg PO DAILY 03/23/24 12/17/24 hr,extended release blood-glucose sensor (Dexcom G6 12/07/24 12/07/24 Sensor device) insulin lispro 100 unit/mL 15 unit subcut TID 12/07/24 12/17/24 subcutaneous pen (Humalog KwikPen (U-100) Insulin) albuterol sulfate 90 mcg/actuation 2 inh inhalation Q4H PRN Wheezing 12/17/24 12/17/24 aerosol inhaler insulin glargine 100 unit/mL (3 50 unit subcut BID 12/17/24 12/17/24 mL) subcutaneous pen (Lantus Solostar U-100 Insulin) ipratropium 20 mcg-albuterol 100 1 puff inhalation QID 12/17/24 12/17/24 mcg/actuation mist for inhalation (Combivent Respimat) silver sulfadiazine 1 % topical 1 applic topical DAILY 12/17/24 12/17/24 cream Previous Rx's Medication Instructions Recorded dabigatran etexilate 150 mg 150 mg PO BID #14 caps 04/17/22 capsule (Pradaxa) pen needle, diabetic 31 gauge x #500 ea 11/07/2302/15" (Clickfine Pen Needle) gabapentin 600 mg tablet 600 mg PO TID #270 tabs 08/01/24 tirzepatide 10 mg/0.5 mL 10 mg (0.5 mL) subcut Q7D #2 mL 12/07/24 subcutaneous pen injector Results & Data (ED) Vital Signs Vital Signs - 24 hr 12/17/24 15:45 12/17/24 17:03 12/17/24 17:20 Temperature 36.7 C Temperature Source Oral Pulse Rate 80 96 H Pulse Rate [Apical] 90 Pulse Rhythm [Apical] Pulse Strength [Apical] Respiratory Rate 20 16 Respiratory Effort / Characteristics Non-Labored Spontaneous Respiratory Depth Normal Respiratory Pattern Blood Pressure 148/56 H Blood Pressure [Right Radial Artery] 141/90 H Blood Pressure Mean 86 Blood Pressure Mean [Right Radial Artery] 107 Blood Pressure Position Sitting Blood Pressure Position [Right Radial Artery] Pulse Oximetry 94 95 Oxygen Delivery Method Room Air Room Air Sepsis Recent Fever Within 48 Hours No Sepsis New/Unexplained Change in Mental Status N/A Sepsis Action Taken by Nursing No Action Required 12/17/24 18:48 12/17/24 20:00 Temperature Temperature Source Pulse Rate Pulse Rate [Apical] 89 98 H Pulse Rhythm [Apical] Regular Pulse Strength [Apical] Normal Respiratory Rate 18 18 Respiratory Effort / Characteristics Non-Labored Spontaneous Respiratory Depth Normal Respiratory Pattern Regular Blood Pressure Blood Pressure [Right Radial Artery] 138/95 145/88 H Blood Pressure Mean Blood Pressure Mean [Right Radial Artery] 109 107 Blood Pressure Position Blood Pressure Position [Right Radial Artery] Semi-fowlers Pulse Oximetry 96 93 Oxygen Delivery Method Room Air Room Air Sepsis Recent Fever Within 48 Hours Sepsis New/Unexplained Change in Mental Status Sepsis Action Taken by Nursing Laboratory Data 12/17/24 16:40 12/17/24 16:40 Lab Results 12/17/24 Range/Units 16:40 WBC 17.18 H (4.8-10.8) K/ul RBC 5.32 (4.20-5.40) M/uL Hgb 16.0 (12.0-16.0) g/dl Hct 48.0 H (37.0-47.0) % MCV 90.2 (80.0-100.0) fL MCH 30.1 (25.0-34.0) pg MCHC 33.3 (32.0-36.0) g/dL RDW Std Deviation 51.6 H (36.4-46.3) fL RDW Coeff of Faraz 15.8 H (11.5-14.5) % Plt Count 393 (130-400) K/uL MPV 10.3 (9.4-12.4) fL Immature Gran % (Auto) 0.7 % Neut % (Auto) 81.6 % Lymph % (Auto) 11.5 % Loup % (Auto) 5.8 % Eos % (Auto) 0.1 % Baso % (Auto) 0.3 % Neut # (Auto) 14.03 H (1.40-6.50) K/uL Lymph # (Auto) 1.97 (1.20-3.40) K/uL Loup # (Auto) 0.99 H (0.11-0.59) K/uL Eos # (Auto) 0.01 (0.00-0.50) K/uL Baso # (Auto) 0.06 (0.00-0.20) K/uL Immature Gran # (Auto) 0.12 (0.01-0.20) K/uL PT 12.5 H (9.0-12.0) Seconds INR 1.2 H (0.9-1.1) APTT 40 H (21-31) Seconds PTT Ratio 1.5 Sodium 141 (136-145) mmol/L Potassium 3.6 (3.5-5.1) mmol/L Chloride 99 (98-107) mmol/L Carbon Dioxide 31 (21-32) mmol/L Anion Gap 11 (3-11) BUN 12 (6-23) mg/dl Creatinine 0.72 (0.6-1.2) mg/dl Est Cr Clr Drug Dosing 101.5 ml/min eGFR 90.45 BUN/Creatinine Ratio 16.7 (10-20) Glucose 160 H (70-99(Fasting)) mg/dl Calcium 10.0 (8.6-10.3) mg/dl Total Bilirubin 0.9 (0.2-1.0) mg/dl AST 26 (13-39) U/L ALT 23 (7-52) U/L Alkaline Phosphatase 139 H (34-104) U/L Troponin I High Sens 12.9 (0-14) pg/ml Total Protein 7.5 (6.0-8.3) gm/dl Albumin 4.1 (3.4-5.0) gm/dl Globulin 3.4 (2.5-4.0) gm/dl Albumin/Globulin Ratio 1.2 (0.9-2) Lipase 10 L (11-82) U/L Administered Medications Albuterol (Albuterol Hfa 8 Gm Inhaler (Combivent Respimat P&T Subs)) 1 puffs INH QIDR [facility]; Protocol Stop: 01/16/25 23:44 Last Admin: 12/18/24 00:51 Dose: 1 puffs Documented By: IDD Allopurinol (Allopurinol 100 Mg Tab) 100 mg PO BID [facility] Stop: 01/16/25 22:46 Last Admin: 12/18/24 00:38 Dose: Not Given Documented By: IDD Atorvastatin Calcium (Atorvastatin 40 Mg Tab) 40 mg PO HS [facility] Stop: 01/16/25 23:44 Last Admin: 12/18/24 00:38 Dose: Not Given Documented By: IDD Diclofenac Sodium (Diclofenac Sod 1% Gel 100 Gm Tube) 2 gm EXT QID [facility]; Protocol Stop: 01/16/25 23:44 Last Admin: 12/18/24 00:50 Dose: 2 gm Documented By: IDD Famotidine (Famotidine 20 Mg Tab) 20 mg PO BID [facility] Stop: 01/16/25 23:44 Last Admin: 12/18/24 00:38 Dose: Not Given Documented By: IDD Gabapentin (Gabapentin 600 Mg Tab) 600 mg PO TID [facility] Stop: 01/16/25 23:44 Last Admin: 12/18/24 00:39 Dose: Not Given Documented By: IDD Gemfibrozil (Gemfibrozil 600 Mg Tab) 600 mg PO BID [facility] Stop: 01/16/25 23:44 Last Admin: 12/18/24 00:39 Dose: Not Given Documented By: IDD Hydromorphone HCl (Hydromorphone Inj 0.5 Mg/0.5 Ml Syr) 0.5 mg IV Q6H PRN PRN Reason: Severe Pain (Scale 7, 8, 9,10) Stop: 12/31/24 22:46 Last Admin: 12/18/24 00:49 Dose: 0.5 mg Documented By: IDD Sodium Chloride (Nss) 1,000 mls @ 100 mls/hr IV .Q10H [facility] Stop: 12/18/24 23:44 Last Admin: 12/18/24 00:52 Dose: 100 mls/hr Documented By: IDD Insulin Aspart (Insulin Aspart Per Unit Charge) 0 units SC Q6H [facility] Stop: 01/17/25 00:00 Last Admin: 12/18/24 00:58 Dose: Not Given Documented By: IDD Insulin Glargine (Lantus Per Unit Charge) 25 units SQ BID [facility] Stop: 01/16/25 23:44 Last Admin: 12/18/24 01:10 Dose: 25 units Documented By: IDKevan Co-signed By: DEMIAN Ipratropium [place] (Ipratropium Hfa Inhaler (Combivent Respimat P&T Subs)) 1 puffs INH QIDR [facility]; Protocol Stop: 01/16/25 23:44 Last Admin: 12/18/24 01:10 Dose: 1 puffs Documented By: JUAN Metoprolol Tartrate (Metoprolol Tartrate 25 Mg Tab) 25 mg PO BID [facility] Stop: 01/16/25 23:44 Last Admin: 12/18/24 00:51 Dose: 25 mg Documented By: IDD Discontinued Medications Acetaminophen (Ofirmev) 1,000 mg in 100 mls @ 400 mls/hr IV NOW STA Stop: 12/17/24 17:31 Last Infusion: 12/17/24 18:05 Dose: Infused Documented By: Admin: 12/17/24 17:22 Dose: 400 mls/hr Documented By: SIOMARA Sodium Chloride (Nss) 250 mls @ 999 mls/hr IV .Q16M ONE Stop: 12/17/24 17:32 Last Infusion: 12/17/24 18:05 Dose: Infused Documented By: Admin: 12/17/24 17:22 Dose: 999 mls/hr Documented By: SIOMARA Ioversol (Optiray 320 125ml) 118 ml IV ONCE ONE Stop: 12/17/24 17:46 Last Admin: 12/17/24 17:46 Dose: 118 ml Documented By: ANASTACIA Imaging Data Radiologist's Impression: Abdomen/Pelvis CT 12/17/24 17:16 INDICATION: Abdominal pain and vomiting. COMPARISON: CT from 12/25/2022. TECHNIQUE: Axial CT images of the abdomen and pelvis were obtained following IV contrast administration. Coronal and sagittal reformations were reviewed. FINDINGS: Visualized lung bases appear unremarkable. The gallbladder is surgically absent. The liver, spleen, pancreas and adrenal glands appear unremarkable. No hydronephrosis. A few small renal cysts noted. Large right lateral/inferior hernia containing fat and bowel loops. Dilated small bowel loops in the midabdomen with stranding of adjacent fat. There are some decompressed small bowel loops in the hernia sac. No pneumatosis/portal venous gas or free air. No free air. No drainable fluid collection. The urinary bladder appears unremarkable. No acute osseous abnormality evident. IMPRESSION: Findings concerning for small bowel obstruction. No pneumatosis or portal venous gas. Probable transition point in large right sided abdominal wall hernia. Electronically signed by Melecio Ren 12-17-2024 6:04 PM Chest X-Ray 12/17/24 19:13 EXAM: XR chest 1V portable CLINICAL HISTORY: After NG tube to check placement TECHNIQUE: An X-ray image of the chest is obtained in AP projection. COMPARISON: 12/25/2022 CR FINDINGS: An NG tube is noted with its distal tip below the left hemidiaphragm in appropriate location. Prominent perihilar and broncho vascular markings in bilateral lung manriquez. Radiopaque densities noted overlying the right lower chest wall, likely artifactual. Multiple chest leads are noted overlying the chest. The cardiac size is enlarged. Bilateral costophrenic angles are clear. The haziness is appreciated in the left lower zone. IMPRESSION: 1. NG tube is noted with its distal tip below the left hemidiaphragm in appropriate location. 2. Cardiomegaly with prominent broncho vascular markings in bilateral lung manriquez. Findings are suggestive of congestive changes. Stable. 3. Haziness in the left lower zone and costophrenioc angle, is likely projectional versus mild atelectatic changes. stable. Electronically signed by Tucker Navarro 12-17-2024 9:07 PM Discharge Plan Visit Data Chief Complaint: Abdominal Pain Stated Complaint: LG HERNIA, MIGHT BE STRANGULATED, VOMIT, ABD PAIN ED Provider: Kenneth Lorenz ED Midlevel Provider: Mariola Paredes Discharge Problem: SBO (small bowel obstruction), Obesity, morbid, BMI 50 or higher, Abdominal wall hernia Patient Disposition: Admitted As Inpatient Condition: Good Discharge Instructions Interventions: ED Discharge Assessment Last Done: 12/17/24 22:33
[2024-12-17] MEDS: SODIUM CHLORIDE 0.9% 250 ML IV ONE (17:22)
[2024-12-17] MEDS: ACETAMINOPHEN 1,000 MG/100 ML VIAL IV STA (17:22)
[2024-12-17] MEDS: OPTIRAY 320 125ml IV ONE (17:46)
[2024-12-17 17:49] LABS: Troponin I High Sensitivity 12.9 pg/ml (0-14)
--- NOTE | 2024-12-17 18:04 | CT Scan Report ---
INDICATION: Abdominal pain and vomiting. COMPARISON: CT from 12/25/2022. TECHNIQUE: Axial CT images of the abdomen and pelvis were obtained following IV contrast administration. Coronal and sagittal reformations were reviewed. FINDINGS: Visualized lung bases appear unremarkable. The gallbladder is surgically absent. The liver, spleen, pancreas and adrenal glands appear unremarkable. No hydronephrosis. A few small renal cysts noted. Large right lateral/inferior hernia containing fat and bowel loops. Dilated small bowel loops in the midabdomen with stranding of adjacent fat. There are some decompressed small bowel loops in the hernia sac. No pneumatosis/portal venous gas or free air. No free air. No drainable fluid collection. The urinary bladder appears unremarkable. No acute osseous abnormality evident. IMPRESSION: Findings concerning for small bowel obstruction. No pneumatosis or portal venous gas. Probable transition point in large right sided abdominal wall hernia. Electronically signed by Melecio Ren 12-17-2024 6:04 PM
[2024-12-17 18:14] LABS: INR 1.2 (0.9-1.1); Partial Thromboplastin Ratio 1.5; Partial Thromboplastin Time 40 Seconds (21-31); Prothrombin Time 12.5 Seconds (9.0-12.0)
--- NOTE | 2024-12-17 18:24 | Emergency Department Note ---
ED Visit Note I was consulted by the Advanced Practice Provider. I personally made or approved the management plan for the patient. I performed a substantive portion of the visit. This includes the aspects of: MDM. .
--- NOTE | 2024-12-17 21:01 | History & Physical Report ---
Date of Service December 17, 2024 Assessment & Plan (1) SBO (small bowel obstruction): Plan: 69-year-old female with past medical history significant for hypothyroidism, hyperlipidemia, idiopathic chronic gout of multiple sites, polycystic ovarian syndrome, type 2 diabetes, ovarian cancer in remission, COPD, obstructive sleep apnea, chronic atrial fibrillation, hypertension, morbid obesity, GERD, CKD stage III, benign paroxysmal positional vertigo, depression with anxiety presents with abdominal pain and found to have small bowel obstruction. Patient says since last Tuesday she is having abdominal pain in the lower abdomen. Associated with several episodes of nausea and vomiting. Since last Tuesday she did not moved her bowels and not passing gas. Currently status post NG tube. Pain is better currently. Was having right-sided rib pain. No shortness of breath. No cough. Has had some chronic runny nose. Afebrile. Hemodynamics are okay.Patient had extensive surgery for ovarian cancer in 2019 and since then she developed right inferior hernia. Small bowel obstruction Status post NG tube Patient had extensive surgery for ovarian cancer in 2019 Will keep her n.p.o., IV fluids, pain control. Hold Pradaxa per surgery recommendations Surgery consult in a.m. for further recommendation Obstructive sleep apnea On BiPAP nightly at home Currently has NG tube We will use oxygen for now and place on BiPAP when NG tube taken out Hypothyroidism On levothyroxine Diabetes Will cut back on Lantus to 25 units twice daily as patient currently n.p.o. Sliding scale Close monitor History of A-fib Continue Cardizem and metoprolol Holding Pradaxa History of ovarian cancer S/p surgery and in remission Gout On allopurinol Hyperlipidemia On statin and gemfibrozil GERD On famotidine Hypertension On Cardizem and Lopressor Will monitor Left kamara wound From the fall Wound care DVT prophylaxis SCDs for now Disposition Med/telemetry Full code History of Present Illness Chief Complaint: Abdominal pain Primary Care Provider: Mohsen Vazquez MD 69-year-old female with past medical history significant for hypothyroidism, hyperlipidemia, idiopathic chronic gout of multiple sites, polycystic ovarian syndrome, type 2 diabetes, ovarian cancer in remission, COPD, obstructive sleep apnea, chronic atrial fibrillation, hypertension, morbid obesity, GERD, CKD stage III, benign paroxysmal positional vertigo, depression with anxiety presents with abdominal pain and found to have small bowel obstruction. Patient says since last Tuesday she is having abdominal pain in the lower abdomen. Associated with several episodes of nausea and vomiting. Since last Tuesday she did not moved her bowels and not passing gas. Currently status post NG tube. Pain is better currently. Was having right-sided rib pain. No shortness of breath. No cough. Has had some chronic runny nose. Afebrile. Hemodynamics are okay.Patient had extensive surgery for ovarian cancer in 2019 and since then she developed right inferior hernia. Past medical history. As mentioned above. Past surgical history. Breast lesion excision left side. Dental surgery. Cholecystectomy. Bilateral debridement of skin and subcutaneous tissue.Extensive surgery for ovarian cancer in 2019 Social history. . Quit smoking 1976. Smoked for 1 year. Alcohol rarely. No drug use. Family history. No family history on file. Allergies Allergy/AdvReac Type Severity Reaction Status Date / Time GIN Inhibitors Allergy Unknown UNK Verified 12/17/24 15:57 cat dander Allergy Unknown UNK Verified 12/17/24 15:57 cockroach Allergy Unknown Unknown Verified 12/17/24 23:43 codeine Allergy Unknown Nausea Verified 12/17/24 15:57 house dust Allergy Unknown Unknown Verified 12/17/24 15:57 hydrocodone Allergy Unknown Nausea Verified 12/17/24 15:57 meperidine Allergy Unknown Nausea Verified 12/17/24 15:57 morphine Allergy Unknown Nausea Verified 12/17/24 15:57 pioglitazone Allergy Unknown UNK Verified 12/17/24 15:57 tree and shrub pollen Allergy Unknown Unknown Verified 12/17/24 15:57 nickel AdvReac Intermediate Redness of Verified 12/17/24 15:57 Skin Home Medications Medication Instructions Recorded Confirmed Type allopurinol 100 mg tablet 100 mg PO BID 09/28/18 12/17/24 History aspirin 81 mg tablet,delayed 81 mg PO QAM 09/28/18 12/17/24 History release (Tiara Low Dose Aspirin) atorvastatin 40 mg tablet 40 mg PO HS 09/28/18 12/17/24 History gemfibrozil 600 mg tablet 600 mg PO BID 09/28/18 12/17/24 History levothyroxine 112 mcg tablet 112 mcg PO QAM 09/28/18 12/17/24 History metoprolol tartrate 25 mg tablet 25 mg PO BID 09/28/18 12/17/24 History mometasone 50 mcg/actuation nasal 2 spray intranasal QAM 09/28/18 12/17/24 History spray diclofenac sodium 1 % topical gel 2 g topical QID 12/09/18 12/17/24 History albuterol sulfate 2.5 mg/3 mL 2.5 mg inhalation Q4H PRN Wheezing 02/19/19 12/17/24 History (0.083 %) solution for nebulization ascorbic acid (vitamin C) 1,000 mg 1 g PO QAM 08/01/20 12/17/24 History tablet glucosamine 375 [id number] 1 tab PO BID 08/01/20 12/17/24 History no1 500 mg-C 15 mg-donald 0.5 mg tablet magnesium 200 mg tablet 100 mg PO QAM 08/01/20 12/17/24 History zinc 50 mg tablet 100 mg PO QAM 08/01/20 12/17/24 History dabigatran etexilate 150 mg 150 mg PO BID #14 caps 04/17/22 12/17/24 Rx capsule (Pradaxa) potassium 99 meq PO QAM 12/25/22 12/17/24 History pen needle, diabetic 31 gauge x #500 ea 11/07/23 12/07/24 Rx 5/16" (Clickfine Pen Needle) famotidine 20 mg tablet (Pepcid) 20 mg PO BID 11/10/23 12/17/24 History furosemide 40 mg tablet (Lasix) 40 mg PO BID PRN swelling 11/10/23 12/17/24 History benzonatate 100 mg capsule 100 mg PO TID PRN Cough 03/23/24 12/17/24 History coenzyme Q10 400 mg capsule 400 mg PO DAILY 03/23/24 12/17/24 History diltiazem HCl 360 mg capsule,24 360 mg PO DAILY 03/23/24 12/17/24 History hr,extended release gabapentin 600 mg tablet 600 mg PO TID #270 tabs 08/01/24 12/17/24 Rx blood-glucose sensor (Dexcom G6 12/07/24 12/07/24 History Sensor device) insulin lispro 100 unit/mL 15 unit subcut TID 12/07/24 12/17/24 History subcutaneous pen (Humalog KwikPen (U-100) Insulin) tirzepatide 10 mg/0.5 mL 10 mg (0.5 mL) subcut Q7D #2 mL 12/07/24 12/17/24 Rx subcutaneous pen injector albuterol sulfate 90 mcg/actuation 2 inh inhalation Q4H PRN Wheezing 12/17/24 12/17/24 History aerosol inhaler insulin glargine 100 unit/mL (3 50 unit subcut BID 12/17/24 12/17/24 History mL) subcutaneous pen (Lantus Solostar U-100 Insulin) ipratropium 20 mcg-albuterol 100 1 puff inhalation QID 12/17/24 12/17/24 History mcg/actuation mist for inhalation (Combivent Respimat) silver sulfadiazine 1 % topical 1 applic topical DAILY 12/17/24 12/17/24 History cream Past Med/Surg History Problem List (Updated 12/18/24 @ 01:44 by Mariola Paredes PA-C) Abdominal wall hernia (Acute) SBO (small bowel obstruction) (Acute) Uncontrolled type 2 diabetes mellitus with hyperglycemia, with long-term current use of insulin Neuropathy, Mild Nephropathy, Macrovascular complications Diabetes mellitus type 2, controlled, with complications Neuropathy, Mild Nephropathy, Macrovascular History of colon polyps Genetic defect Obesity, morbid, BMI 50 or higher (Chronic) Renal lesion Chronic anticoagulation (Chronic) Ambulatory dysfunction (Chronic) Altered mental status (Chronic) HTN (hypertension) (Chronic) HLD (hyperlipidemia) (Chronic) COPD (chronic obstructive pulmonary disease) (Chronic) NAVI (obstructive sleep apnea) (Chronic) cpap Diabetic neuropathy (Chronic) GERD (gastroesophageal reflux disease) (Chronic) Depression (Chronic) Hypothyroid (Chronic) Gout (Chronic) Atrial fibrillation (Chronic) Medical History Elevated troponin Loss of protective sensation of skin of foot Rectal bleed Lower gastrointestinal hemorrhage Nausea and vomiting after administration of anesthetic agent Hx of ovarian cancer 2019- surgical intervention, no chemo or radiation-[facility] [place] Liver lesion Liver cell injury Ovarian cancer on right 28 lb R adnexal mass removed 07/22/19 Edema Closed head injury Syncope Leg wound, right Atrial fibrillation with rapid ventricular response (07/14/14) - follows w/ dr norris last visit 1 yr ago- takes pradaxa Surgical History S/P appendectomy during hysterectomy S/P hysterectomy Status post colonoscopy with polypectomy History of cholecystectomy History of hernia repair during hysterectomy Family History Father Myocardial infarction Coronary heart disease Diabetes Mother Complication of surgery Diabetes Sister Diabetes Sister Diabetes Brother Diabetes "Pre-diabetic" Sister Diabetes Sister Gestational diabetes Grandmother (Paternal) Diabetes Grandmother (Maternal) Diabetes Social History Smoking Status: Never smoker Cigarettes Per Day: 0; Second Hand Exposure: No; Do You Dip or Chew Tobacco: No; Hx Alcohol Use: No Hx Substance Use: No Preferred Language: Greenlandic Communication Ability: Effective Food Products Tester Required: No Beliefs That Will Affect Care: None marital status: / Current Living Situation: Alone and Family Current Living Situation Comment: Lives at home with daugther, son in law and grandchildren Feels Safe at Home: Yes Safety Concerns: Feels Safe At This Time Assistive Devices: Glasses Review of Systems Review of Systems: All systems reviewed & are unremarkable except as noted in HPI & below Physical Exam Physical Exam: General-Not in distress Head- atraumatic Eyes- PERRL. ENT- oropharynx clear Neck- supple, no JVD. Lungs- clear to auscultation no wheezing or crackles Heart- regular rhythm; no murmur, no gallop. Abdomen- absent bowel sounds, soft, mild diffuse discomfort, mild rash in abdominal folds Extremities- no pretibial edema, superficial wound seen on left kamara Neuro- alert, oriented PERRL, no facial palsy; no dysarthria; moves extremities Results & Data Results & Data Vital Signs (Past 12 Hours) Vital Signs Temp Pulse Pulse Resp BP BP Pulse Ox 12/17/24 20:00 98 H 18 145/88 H 93 12/17/24 18:48 89 18 138/95 96 12/17/24 17:20 96 H 12/17/24 17:03 90 16 141/90 H 95 12/17/24 15:45 36.7 C 80 20 148/56 H 94 O2 Del Method 12/17/24 20:00 Room Air 12/17/24 18:48 Room Air 12/17/24 17:20 12/17/24 17:03 Room Air 12/17/24 15:45 Room Air Diagnostic Findings Laboratory Results WBC 17.18 K/ul (4.8-10.8) H 12/17/24 16:40 RBC 5.32 M/uL (4.20-5.40) 12/17/24 16:40 Hgb 16.0 g/dl (12.0-16.0) 12/17/24 16:40 Hct 48.0 % (37.0-47.0) H 12/17/24 16:40 MCV 90.2 fL (80.0-100.0) 12/17/24 16:40 MCH 30.1 pg (25.0-34.0) 12/17/24 16:40 MCHC 33.3 g/dL (32.0-36.0) 12/17/24 16:40 RDW Std Deviation 51.6 fL (36.4-46.3) H 12/17/24 16:40 RDW Coeff of Faraz 15.8 % (11.5-14.5) H 12/17/24 16:40 Plt Count 393 K/uL (130-400) 12/17/24 16:40 MPV 10.3 fL (9.4-12.4) 12/17/24 16:40 Immature Gran % (Auto) 0.7 % 12/17/24 16:40 Neut % (Auto) 81.6 % 12/17/24 16:40 Lymph % (Auto) 11.5 % 12/17/24 16:40 Riley % (Auto) 5.8 % 12/17/24 16:40 Eos % (Auto) 0.1 % 12/17/24 16:40 Baso % (Auto) 0.3 % 12/17/24 16:40 Neut # (Auto) 14.03 K/uL (1.40-6.50) H 12/17/24 16:40 Lymph # (Auto) 1.97 K/uL (1.20-3.40) 12/17/24 16:40 Riley # (Auto) 0.99 K/uL (0.11-0.59) H 12/17/24 16:40 Eos # (Auto) 0.01 K/uL (0.00-0.50) 12/17/24 16:40 Baso # (Auto) 0.06 K/uL (0.00-0.20) 12/17/24 16:40 Immature Gran # (Auto) 0.12 K/uL (0.01-0.20) 12/17/24 16:40 PT 12.5 Seconds (9.0-12.0) H 12/17/24 16:40 INR 1.2 (0.9-1.1) H 12/17/24 16:40 APTT 40 Seconds (21-31) H 12/17/24 16:40 PTT Ratio 1.5 12/17/24 16:40 Sodium 141 mmol/L (136-145) 12/17/24 16:40 Potassium 3.6 mmol/L (3.5-5.1) 12/17/24 16:40 Chloride 99 mmol/L (98-107) 12/17/24 16:40 Carbon Dioxide 31 mmol/L (21-32) 12/17/24 16:40 Anion Gap 11 (3-11) 12/17/24 16:40 BUN 12 mg/dl (6-23) 12/17/24 16:40 Creatinine 0.72 mg/dl (0.6-1.2) 12/17/24 16:40 Est Cr Clr Drug Dosing 101.5 ml/min 12/17/24 16:40 eGFR 90.45 12/17/24 16:40 BUN/Creatinine Ratio 16.7 (10-20) 12/17/24 16:40 Glucose 160 mg/dl (70-99(Fasting)) H 12/17/24 16:40 Calcium 10.0 mg/dl (8.6-10.3) 12/17/24 16:40 Total Bilirubin 0.9 mg/dl (0.2-1.0) 12/17/24 16:40 AST 26 U/L (13-39) 12/17/24 16:40 ALT 23 U/L (7-52) 12/17/24 16:40 Alkaline Phosphatase 139 U/L (34-104) H 12/17/24 16:40 Troponin I High Sens 12.9 pg/ml (0-14) 12/17/24 16:40 Total Protein 7.5 gm/dl (6.0-8.3) 12/17/24 16:40 Albumin 4.1 gm/dl (3.4-5.0) 12/17/24 16:40 Globulin 3.4 gm/dl (2.5-4.0) 12/17/24 16:40 Albumin/Globulin Ratio 1.2 (0.9-2) 12/17/24 16:40 Lipase 10 U/L (11-82) L 12/17/24 16:40 Impressions Abdomen/Pelvis CT 12/17/24 17:16 INDICATION: Abdominal pain and vomiting. COMPARISON: CT from 12/25/2022. TECHNIQUE: Axial CT images of the abdomen and pelvis were obtained following IV contrast administration. Coronal and sagittal reformations were reviewed. FINDINGS: Visualized lung bases appear unremarkable. The gallbladder is surgically absent. The liver, spleen, pancreas and adrenal glands appear unremarkable. No hydronephrosis. A few small renal cysts noted. Large right lateral/inferior hernia containing fat and bowel loops. Dilated small bowel loops in the midabdomen with stranding of adjacent fat. There are some decompressed small bowel loops in the hernia sac. No pneumatosis/portal venous gas or free air. No free air. No drainable fluid collection. The urinary bladder appears unremarkable. No acute osseous abnormality evident. IMPRESSION: Findings concerning for small bowel obstruction. No pneumatosis or portal venous gas. Probable transition point in large right sided abdominal wall hernia. Electronically signed by Melecio Ren 12-17-2024 6:04 PM Code Status & VTE Plan VTE Prophylaxis Plan VTE Prophylaxis will be ordered: Yes
--- NOTE | 2024-12-17 21:08 | XRay Report ---
EXAM: XR chest 1V portable CLINICAL HISTORY: After NG tube to check placement TECHNIQUE: An X-ray image of the chest is obtained in AP projection. COMPARISON: 12/25/2022 CR FINDINGS: An NG tube is noted with its distal tip below the left hemidiaphragm in appropriate location. Prominent perihilar and broncho vascular markings in bilateral lung manriquez. Radiopaque densities noted overlying the right lower chest wall, likely artifactual. Multiple chest leads are noted overlying the chest. The cardiac size is enlarged. Bilateral costophrenic angles are clear. The haziness is appreciated in the left lower zone. IMPRESSION: 1. NG tube is noted with its distal tip below the left hemidiaphragm in appropriate location. 2. Cardiomegaly with prominent broncho vascular markings in bilateral lung manriquez. Findings are suggestive of congestive changes. Stable. 3. Haziness in the left lower zone and costophrenioc angle, is likely projectional versus mild atelectatic changes. stable. Electronically signed by Tucker Navarro 12-17-2024 9:07 PM
--- NOTE | 2024-12-17 21:54 | Surgery Consultation ---
Date of Consultation December 17, 2024 Assessment & Plan (1) SBO (small bowel obstruction): 69-year-old morbidly obese woman with an extensive past medical and surgical history, large known hernia, on Pradaxa for atrial fibrillation presents with a small bowel obstruction with a possible transition point within the very large hernia. An NG tube been placed. She is feeling much better. We will observe for now. If she requires surgery, she will most likely need to be done at a tertiary care center due to all of her comorbidities as well as her large hernia with loss of domain of her abdomen. We will continue to follow while she is in the hospital. History of Present Illness Reason for Consultation: Small bowel obstruction Requesting Physician: ED physician Attending Physician: ED physician History of Present Illness 69-year-old woman with an extensive past medical and surgical history including ovarian cancer status post total abdominal hysterectomy, bilateral esophageal for ectomy, omentectomy, appendectomy presents with small bowel obstruction. She has a BMI of 59. She has atrial fibrillation and is on Pradaxa. She has COPD. She noted increasing abdominal pain over the weekend. She states her last bowel movement and possible last flatus was on Tuesday. Yesterday she developed severe abdominal pain. She was seen in the emergency department where CT scan demonstrated her known large loss of domain right lower quadrant hernia containing multiple loops of bowel and colon. She was noted to have a small bowel obstruction with a transition point somewhere within the hernia. She did have some nausea earlier. She was given IV Tylenol when she arrived at the hospital. Currently she states the pain is significantly improved and she is resting comfortably. She denies fevers or chills. Allergies Allergy/AdvReac Type Severity Reaction Status Date / Time GIN Inhibitors Allergy Unknown UNK Verified 12/17/24 15:57 cat dander Allergy Unknown UNK Verified 12/17/24 15:57 codeine Allergy Unknown Nausea Verified 12/17/24 15:57 house dust Allergy Unknown Unknown Verified 12/17/24 15:57 hydrocodone Allergy Unknown Nausea Verified 12/17/24 15:57 meperidine Allergy Unknown Nausea Verified 12/17/24 15:57 morphine Allergy Unknown Nausea Verified 12/17/24 15:57 pioglitazone Allergy Unknown UNK Verified 12/17/24 15:57 tree and shrub pollen Allergy Unknown Unknown Verified 12/17/24 15:57 nickel AdvReac Intermediate Redness of Verified 12/17/24 15:57 Skin Cockroach Allergy Unknown UNK Uncoded 12/17/24 15:57 Home Medications Medication Instructions Recorded Confirmed Type allopurinol 100 mg tablet 100 mg PO BID 09/28/18 12/17/24 History aspirin 81 mg tablet,delayed 81 mg PO QAM 09/28/18 12/17/24 History release (Tiara Low Dose Aspirin) atorvastatin 40 mg tablet 40 mg PO HS 09/28/18 12/17/24 History gemfibrozil 600 mg tablet 600 mg PO BID 09/28/18 12/17/24 History levothyroxine 112 mcg tablet 112 mcg PO QAM 09/28/18 12/17/24 History metoprolol tartrate 25 mg tablet 25 mg PO BID 09/28/18 12/17/24 History mometasone 50 mcg/actuation nasal 2 spray intranasal QAM 09/28/18 12/17/24 History spray diclofenac sodium 1 % topical gel 2 g topical QID 12/09/18 12/17/24 History albuterol sulfate 2.5 mg/3 mL 2.5 mg inhalation Q4H PRN Wheezing 02/19/19 12/17/24 History (0.083 %) solution for nebulization ascorbic acid (vitamin C) 1,000 mg 1 g PO QAM 08/01/20 12/17/24 History tablet glucosamine 375 [id number] 1 tab PO BID 08/01/20 12/17/24 History no1 500 mg-C 15 mg-donald 0.5 mg tablet magnesium 200 mg tablet 100 mg PO QAM 08/01/20 12/17/24 History zinc 50 mg tablet 100 mg PO QAM 08/01/20 12/17/24 History dabigatran etexilate 150 mg 150 mg PO BID #14 caps 04/17/22 12/17/24 Rx capsule (Pradaxa) potassium 99 meq PO QAM 12/25/22 12/17/24 History pen needle, diabetic 31 gauge x #500 ea 11/07/23 12/07/24 Rx 5/16" (Clickfine Pen Needle) famotidine 20 mg tablet (Pepcid) 20 mg PO BID 11/10/23 12/17/24 History furosemide 40 mg tablet (Lasix) 40 mg PO BID PRN swelling 11/10/23 12/17/24 History benzonatate 100 mg capsule 100 mg PO TID PRN Cough 03/23/24 12/17/24 History coenzyme Q10 400 mg capsule 400 mg PO DAILY 03/23/24 12/17/24 History diltiazem HCl 360 mg capsule,24 360 mg PO DAILY 03/23/24 12/17/24 History hr,extended release gabapentin 600 mg tablet 600 mg PO TID #270 tabs 08/01/24 12/17/24 Rx blood-glucose sensor (Dexcom G6 12/07/24 12/07/24 History Sensor device) insulin lispro 100 unit/mL 15 unit subcut TID 12/07/24 12/17/24 History subcutaneous pen (Humalog KwikPen (U-100) Insulin) tirzepatide 10 mg/0.5 mL 10 mg (0.5 mL) subcut Q7D #2 mL 12/07/24 12/17/24 Rx subcutaneous pen injector albuterol sulfate 90 mcg/actuation 2 inh inhalation Q4H PRN Wheezing 12/17/24 12/17/24 History aerosol inhaler insulin glargine 100 unit/mL (3 50 unit subcut BID 12/17/24 12/17/24 History mL) subcutaneous pen (Lantus Solostar U-100 Insulin) ipratropium 20 mcg-albuterol 100 1 puff inhalation QID 12/17/24 12/17/24 History mcg/actuation mist for inhalation (Combivent Respimat) silver sulfadiazine 1 % topical 1 applic topical DAILY 12/17/24 12/17/24 History cream Patient History Medical History Elevated troponin Loss of protective sensation of skin of foot Rectal bleed Lower gastrointestinal hemorrhage Nausea and vomiting after administration of anesthetic agent Hx of ovarian cancer 2018- surgical intervention, no chemo or radiation-[facility] Liver lesion Liver cell injury Ovarian cancer on right 28 lb R adnexal mass removed 07/22/19 Edema Closed head injury Syncope Leg wound, right Atrial fibrillation with rapid ventricular response (07/14/14) - follows w/ dr norris last visit 1 yr ago- takes pradaxa Surgical History S/P appendectomy during hysterectomy S/P hysterectomy Status post colonoscopy with polypectomy History of cholecystectomy History of hernia repair during hysterectomy Family History Father Myocardial infarction Coronary heart disease Diabetes Mother Complication of surgery Diabetes Sister Diabetes Sister Diabetes Brother Diabetes "Pre-diabetic" Sister Diabetes Sister Gestational diabetes Grandmother (Paternal) Diabetes Grandmother (Maternal) Diabetes Social History Smoking Status: Never smoker Cigarettes Per Day: 0; Second Hand Exposure: No; Do You Dip or Chew Tobacco: No; Hx Alcohol Use: No Hx Substance Use: No Preferred Language: Mac[place] Communication Ability: Effective 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 Beliefs That Will Affect Care: None marital status: / Current Living Situation: Alone Current Living Situation Comment: Lives at home with daugther, son in law and grandchildren Feels Safe at Home: Yes Assistive Devices: Glasses Review of Systems Review of Systems: All systems reviewed & are unremarkable except as noted in HPI & below Physical Exam Constitutional: well developed and + morbidly obese; not ill appearing Eyes: PERRL, conjunctivae normal, anicteric sclerae Neck: trachea midline, no thyromegaly Respiratory: normal respiratory effort; no respiratory distress and no labored breathing Cardiovascular: Rate/Rhythm: regular rate and regular rhythm Gastrointestinal (Abdomen): Inspection/Auscultation: abdomen normal to inspection, + visible herniation and + abdominal surgical scar; abdomen not distended Percussion/Palpation: abdomen soft and + hernia ( Large right sided hernia, minimal tenderness to deep pressure); abdomen nontender, no guarding and abdomen not rigid Skin: no rashes, warm and dry Psychiatric: A+Ox3, euthymic affect Results & Data Vital Signs (Past 12 Hours) Vital Signs Temp Pulse Pulse Resp BP BP Pulse Ox 12/17/24 21:00 122 H 12/17/24 20:00 98 H 18 145/88 H 93 12/17/24 18:48 89 18 138/95 96 12/17/24 17:20 96 H 12/17/24 17:03 90 16 141/90 H 95 12/17/24 15:45 36.7 C 80 20 148/56 H 94 O2 Del Method 12/17/24 21:00 12/17/24 20:00 Room Air 12/17/24 18:48 Room Air 12/17/24 17:20 12/17/24 17:03 Room Air 12/17/24 15:45 Room Air Laboratory Results 12/17/24 12/17/24 Range/Units 21:00 16:40 WBC 17.18 H (4.8-10.8) K/ul RBC 5.32 (4.20-5.40) M/uL Hgb 16.0 (12.0-16.0) g/dl Hct 48.0 H (37.0-47.0) % MCV 90.2 (80.0-100.0) fL MCH 30.1 (25.0-34.0) pg MCHC 33.3 (32.0-36.0) g/dL RDW Std Deviation 51.6 H (36.4-46.3) fL RDW Coeff of Faraz 15.8 H (11.5-14.5) % Plt Count 393 (130-400) K/uL MPV 10.3 (9.4-12.4) fL Immature Gran % (Auto) 0.7 % Neut % (Auto) 81.6 % Lymph % (Auto) 11.5 % [place] % (Auto) 5.8 % Eos % (Auto) 0.1 % Baso % (Auto) 0.3 % Neut # (Auto) 14.03 H (1.40-6.50) K/uL Lymph # (Auto) 1.97 (1.20-3.40) K/uL [place] # (Auto) 0.99 H (0.11-0.59) K/uL Eos # (Auto) 0.01 (0.00-0.50) K/uL Baso # (Auto) 0.06 (0.00-0.20) K/uL Immature Gran # (Auto) 0.12 (0.01-0.20) K/uL PT 12.5 H (9.0-12.0) Seconds INR 1.2 H (0.9-1.1) APTT 40 H (21-31) Seconds PTT Ratio 1.5 Sodium 141 (136-145) mmol/L Potassium 3.6 (3.5-5.1) mmol/L Chloride 99 (98-107) mmol/L Carbon Dioxide 31 (21-32) mmol/L Anion Gap 11 (3-11) BUN 12 (6-23) mg/dl Creatinine 0.72 (0.6-1.2) mg/dl Est Cr Clr Drug Dosing 101.5 ml/min eGFR 90.45 BUN/Creatinine Ratio 16.7 (10-20) Glucose 160 H (70-99(Fasting)) mg/dl Calcium 10.0 (8.6-10.3) mg/dl Total Bilirubin 0.9 (0.2-1.0) mg/dl AST 26 (13-39) U/L ALT 23 (7-52) U/L Alkaline Phosphatase 139 H (34-104) U/L Troponin I High Sens 12.9 (0-14) pg/ml Total Protein 7.5 (6.0-8.3) gm/dl Albumin 4.1 (3.4-5.0) gm/dl Globulin 3.4 (2.5-4.0) gm/dl Albumin/Globulin Ratio 1.2 (0.9-2) Lipase 10 L (11-82) U/L Urine Color Pending Urine Appearance Pending Urine pH Pending Ur Specific [place] Pending Urine Protein Pending Urine Glucose (UA) Pending Urine Ketones Pending Urine Blood Pending Urine Nitrite Pending Urine Bilirubin Pending Urine Urobilinogen Pending Ur Leukocyte Esterase Pending Diagnostic Findings NDICATION: Abdominal pain and vomiting. COMPARISON: CT from 12/25/2022. TECHNIQUE: Axial CT images of the abdomen and pelvis were obtained following IV contrast administration. Coronal and sagittal reformations were reviewed. FINDINGS: Visualized lung bases appear unremarkable. The gallbladder is surgically absent. The liver, spleen, pancreas and adrenal glands appear unremarkable. No hydronephrosis. A few small renal cysts noted. Large right lateral/inferior hernia containing fat and bowel loops. Dilated small bowel loops in the midabdomen with stranding of adjacent fat. There are some decompressed small bowel loops in the hernia sac. No pneumatosis/portal venous gas or free air. No free air. No drainable fluid collection. The urinary bladder appears unremarkable. No acute osseous abnormality evident. IMPRESSION: Findings concerning for small bowel obstruction. No pneumatosis or portal venous gas. Probable transition point in large right sided abdominal wall hernia. Electronically signed by Melecio Ren 12-17-2024 6:04 PM Dictated: 12/17/24 1742 Transcribed:
[2024-12-17 21:57] LABS: Appearance Urine Cloudy (Clear); Bacteria Urine Automated 4+ (None Seen); Bilirubin Urine Negative (Negative); Blood Urine Negative (Negative); Color Urine Yellow; Epithelial Cell Urine Auto 0-2 /hpf (0-2); Glucose Urine UA Negative (Negative); Ketones Urine Negative (Negative); Leukocyte Esterase Urine 1+ (Negative); Nitrite Urine Negative (Negative); Protein Urine 1+ (Negative); Specific Gravity Urine > 1.045 (1.000-1.030); Urobilinogen Urine Negative (Negative); WBC Urine Automated >50 /hpf (0-5)
[2024-12-17] MEDS ORDERED: ALBUTEROL 0.083% NEBU SOLN 3 ML VIAL INH PRN (22:47)
[2024-12-17] MEDS ORDERED: CARBOHYDRATES FOR HYPOGLYCEMIA PO PRN (22:47)
[2024-12-17] MEDS ORDERED: DEXTROSE 50% 50 ML SYRINGE IV PRN (22:47)
[2024-12-17] MEDS ORDERED: ALBUTEROL HFA 8 GM INHALER INH PRN (22:47)
[2024-12-17] MEDS ORDERED: BENZONATATE 100 MG CAPSULE PO PRN (22:47)
[2024-12-17] MEDS ORDERED: NITROGLYCERIN SL 0.4 MG/TAB TAB SL PRN (22:47)
[2024-12-17] MEDS ORDERED: GLUCOSE 40% GEL 15 GM TUBE PO PRN (22:47)
[2024-12-17] MEDS ORDERED: GLUCOSE 10 TAB/TUBE PO PRN (22:47)
[2024-12-17] MEDS ORDERED: GLUCAGON FOR INJ 1 MG VIAL SQ PRN (22:47)
[2024-12-18] MEDS: FAMOTIDINE 20 MG TAB PO SCH (00:38)
[2024-12-18] MEDS: allopurinoL 100 MG TAB PO SCH (00:38)
[2024-12-18] MEDS: ATORVASTATIN 40 MG TAB PO SCH (00:38)
[2024-12-18] MEDS: gemfibroziL 600 MG TAB PO SCH (00:39)
[2024-12-18] MEDS: GABAPENTIN 600 MG TAB PO SCH (00:39)
[2024-12-18] MEDS: HYDROmorphone INJ 0.5 MG/0.5 ML SYR IV PRN (00:49)
[2024-12-18] MEDS: DICLOFENAC SOD 1% GEL 100 GM TUBE EXT SCH (00:50)
[2024-12-18] MEDS: METOPROLOL TARTRATE 25 MG TAB PO SCH (00:51)
[2024-12-18] MEDS: Albuterol HFA 8 GM Inhaler (Combivent Respimat P&T Subs) INH SCH (00:51)
[2024-12-18] MEDS: SODIUM CHLORIDE 0.9% 1,000 ML IV SCH (00:52)
[2024-12-18] MEDS: INSULIN ASPART PER UNIT CHARGE SC SCH (00:58)
[2024-12-18] MEDS: LANTUS PER UNIT CHARGE SQ SCH ×2 (01:10→09:25)
[2024-12-18] MEDS: Ipratropium HFA Inhaler (Combivent Respimat P&T Subs) INH SCH (01:10)
[2024-12-18] MEDS: IPRATROPIUM BROMIDE/ALBUTEROL respimat INH INH SCH (01:54)
[2024-12-18 04:49] LABS: Basophils # (auto) 0.08 K/uL (0.00-0.20); Basophils % (auto) 0.6 %; Eosinophils # (auto) 0.04 K/uL (0.00-0.50); Eosinophils % (auto) 0.3 %; Hematocrit (blood only) 43.5 % (37.0-47.0); Hemoglobin 14.5 g/dl (12.0-16.0); Immature Granulocytes # (auto) 0.07 K/uL (0.01-0.20); Immature Granulocytes % (auto) 0.5 %; Lymphocytes # (auto) 2.68 K/uL (1.20-3.40); Lymphocytes % (auto) 18.5 %; Mean Corpuscular Hgb Conc 33.3 g/dL (32.0-36.0); Mean Corpuscular Volume 90.1 fL (80.0-100.0); Mean Platelet Volume 10.3 fL (9.4-12.4); Monocytes # (auto) 1.08 K/uL (0.11-0.59); Monocytes % (auto) 7.4 %; Neutrophils # (auto) 10.55 K/uL (1.40-6.50); Neutrophils % (auto) 72.7 %; Platelet Count 382 K/uL (130-400); RDW Standard Deviation 51.8 fL (36.4-46.3); Red Blood Count 4.83 M/uL (4.20-5.40)
[2024-12-18 05:02] LABS: BUN Creatinine Ratio 16.7 (10-20); Calcium 9.3 mg/dl (8.6-10.3); Creatinine Clr Calc Pharmacy 101.5 ml/min; Magnesium 2.2 mg/dl (1.7-2.4); Potassium 3.4 mmol/L (3.5-5.1)
[2024-12-18 05:09] LABS: Troponin I High Sensitivity 16.9 pg/ml (0-14)
[2024-12-18] MEDS: LEVOTHYROXINE SODIUM 112 MCG TABLET PO SCH (06:28)
[2024-12-18 08:28] LABS: Estimated Average Glucose 120 mg/dl; Hemoglobin A1C 5.8 % (4.5-5.6)
--- NOTE | 2024-12-18 08:31 | Surgery Progress Note ---
Date of Service December 18, 2024 Assessment & Plan (1) SBO (small bowel obstruction): Plan: 69-year-old morbidly obese woman with an extensive past medical and surgical history, large known hernia, on Pradaxa for atrial fibrillation presents with a small bowel obstruction with a possible transition point within the very large hernia. An NG tube been placed. She is feeling much better. We will observe for now. If she requires surgery, she will most likely need to be done at a tertiary care center due to all of her comorbidities as well as her large hernia with loss of domain of her abdomen. We will continue to follow while she is in the hospital. 12/18/2024no flatus or bowel movement, feeling somewhat better. White blood cell count decreased to 14. Will continue to monitor. If she does not improve, she will require transfer to tertiary care for surgical intervention. Admission and Anticipated Discharge Date Admission Date: December 17, 2024 Subjective still with some pain, but better than yesterday. No nausea or vomiting. NG tube in place. Physical Exam Constitutional: well developed and + morbidly obese; not ill appearing Gastrointestinal (Abdomen): Inspection/Auscultation: abdomen normal to inspection, + visible herniation and + abdominal surgical scar; abdomen not distended Percussion/Palpation: abdomen soft and + hernia ( Large right sided hernia, minimal tenderness to deep pressure); abdomen nontender, no guarding and abdomen not rigid Results & Data Vital Signs (Past 12 Hours) Vital Signs Pulse Pulse Resp BP Pulse Ox Pulse Ox O2 Del Method 12/18/24 07:03 85 16 98 Nasal Cannula 12/18/24 06:00 85 18 147/101 H 95 Nasal Cannula 12/18/24 02:00 88 18 127/95 97 Nasal Cannula 12/18/24 01:00 96 12/18/24 01:00 99 H 18 131/95 94 Nasal Cannula 12/18/24 00:51 101 H 20 96 Nasal Cannula 12/18/24 00:37 107 H 12/17/24 22:00 93 H 18 136/84 95 Nasal Cannula 12/17/24 21:00 122 H O2 Del Method O2 Flow Rate O2 Flow Rate 12/18/24 07:03 2 12/18/24 06:00 3 12/18/24 02:00 3 12/18/24 01:00 Nasal Cannula 2 12/18/24 01:00 2 12/18/24 00:51 2 12/18/24 00:37 12/17/24 22:00 2 12/17/24 21:00 Laboratory Results 12/18/24 12/18/24 12/18/24 Range/Units 06:16 04:09 00:46 WBC 14.50 H (4.8-10.8) K/ul RBC 4.83 (4.20-5.40) M/uL Hgb 14.5 (12.0-16.0) g/dl Hct 43.5 (37.0-47.0) % MCV 90.1 (80.0-100.0) fL MCH 30.0 (25.0-34.0) pg MCHC 33.3 (32.0-36.0) g/dL RDW Std Deviation 51.8 H (36.4-46.3) fL RDW Coeff of Faraz 16.0 H (11.5-14.5) % Plt Count 382 (130-400) K/uL MPV 10.3 (9.4-12.4) fL Immature Gran % (Auto) 0.5 % Neut % (Auto) 72.7 % Lymph % (Auto) 18.5 % [place] % (Auto) 7.4 % Eos % (Auto) 0.3 % Baso % (Auto) 0.6 % Neut # (Auto) 10.55 H (1.40-6.50) K/uL Lymph # (Auto) 2.68 (1.20-3.40) K/uL [place] # (Auto) 1.08 H (0.11-0.59) K/uL Eos # (Auto) 0.04 (0.00-0.50) K/uL Baso # (Auto) 0.08 (0.00-0.20) K/uL Immature Gran # (Auto) 0.07 (0.01-0.20) K/uL PT (9.0-12.0) Seconds INR (0.9-1.1) APTT (21-31) Seconds PTT Ratio Sodium 142 (136-145) mmol/L Potassium 3.4 L (3.5-5.1) mmol/L Chloride 101 (98-107) mmol/L Carbon Dioxide 34 H (21-32) mmol/L Anion Gap 7 (3-11) BUN 12 (6-23) mg/dl Creatinine 0.72 (0.6-1.2) mg/dl Est Cr Clr Drug Dosing 101.5 ml/min eGFR 90.45 BUN/Creatinine Ratio 16.7 (10-20) Glucose 134 H (70-99(Fasting)) mg/dl POC Glucose 127 H 119 H (70-99) mg/dl Estimat Average Glucose 120 mg/dl Hemoglobin A1c 5.8 H (4.5-5.6) % Calcium 9.3 (8.6-10.3) mg/dl Magnesium 2.2 (1.7-2.4) mg/dl Total Bilirubin (0.2-1.0) mg/dl AST (13-39) U/L ALT (7-52) U/L Alkaline Phosphatase (34-104) U/L Troponin I High Sens 16.9 H D (0-14) pg/ml Total Protein (6.0-8.3) gm/dl Albumin (3.4-5.0) gm/dl Globulin (2.5-4.0) gm/dl Albumin/Globulin Ratio (0.9-2) Lipase (11-82) U/L Urine Color Urine Appearance (Clear) Urine pH (4.5-7.5) Ur Specific [place] (1.000-1.030) Urine Protein (Negative) Urine Glucose (UA) (Negative) Urine Ketones (Negative) Urine Blood (Negative) Urine Nitrite (Negative) Urine Bilirubin (Negative) Urine Urobilinogen (Negative) Ur Leukocyte Esterase (Negative) Urine WBC (Auto) (0-5) /hpf Urine RBC (Auto) (0-2) /hpf U Hyaline Cast (Auto) (0-2) /lpf U Epithel Cells (Auto) (0-2) /hpf Urine Bacteria (Auto) (None Seen) 12/17/24 12/17/24 Range/Units 21:00 16:40 WBC 17.18 H (4.8-10.8) K/ul RBC 5.32 (4.20-5.40) M/uL Hgb 16.0 (12.0-16.0) g/dl Hct 48.0 H (37.0-47.0) % MCV 90.2 (80.0-100.0) fL MCH 30.1 (25.0-34.0) pg MCHC 33.3 (32.0-36.0) g/dL RDW Std Deviation 51.6 H (36.4-46.3) fL RDW Coeff of Faraz 15.8 H (11.5-14.5) % Plt Count 393 (130-400) K/uL MPV 10.3 (9.4-12.4) fL Immature Gran % (Auto) 0.7 % Neut % (Auto) 81.6 % Lymph % (Auto) 11.5 % [place] % (Auto) 5.8 % Eos % (Auto) 0.1 % Baso % (Auto) 0.3 % Neut # (Auto) 14.03 H (1.40-6.50) K/uL Lymph # (Auto) 1.97 (1.20-3.40) K/uL [place] # (Auto) 0.99 H (0.11-0.59) K/uL Eos # (Auto) 0.01 (0.00-0.50) K/uL Baso # (Auto) 0.06 (0.00-0.20) K/uL Immature Gran # (Auto) 0.12 (0.01-0.20) K/uL PT 12.5 H (9.0-12.0) Seconds INR 1.2 H (0.9-1.1) APTT 40 H (21-31) Seconds PTT Ratio 1.5 Sodium 141 (136-145) mmol/L Potassium 3.6 (3.5-5.1) mmol/L Chloride 99 (98-107) mmol/L Carbon Dioxide 31 (21-32) mmol/L Anion Gap 11 (3-11) BUN 12 (6-23) mg/dl Creatinine 0.72 (0.6-1.2) mg/dl Est Cr Clr Drug Dosing 101.5 ml/min eGFR 90.45 BUN/Creatinine Ratio 16.7 (10-20) Glucose 160 H (70-99(Fasting)) mg/dl POC Glucose (70-99) mg/dl Estimat Average Glucose mg/dl Hemoglobin A1c (4.5-5.6) % Calcium 10.0 (8.6-10.3) mg/dl Magnesium (1.7-2.4) mg/dl Total Bilirubin 0.9 (0.2-1.0) mg/dl AST 26 (13-39) U/L ALT 23 (7-52) U/L Alkaline Phosphatase 139 H (34-104) U/L Troponin I High Sens 12.9 (0-14) pg/ml Total Protein 7.5 (6.0-8.3) gm/dl Albumin 4.1 (3.4-5.0) gm/dl Globulin 3.4 (2.5-4.0) gm/dl Albumin/Globulin Ratio 1.2 (0.9-2) Lipase 10 L (11-82) U/L Urine Color Yellow Urine Appearance Cloudy A (Clear) Urine pH 8.0 H (4.5-7.5) Ur Specific [place] > 1.045 H (1.000-1.030) Urine Protein 1+ H (Negative) Urine Glucose (UA) Negative (Negative) Urine Ketones Negative (Negative) Urine Blood Negative (Negative) Urine Nitrite Negative (Negative) Urine Bilirubin Negative (Negative) Urine Urobilinogen Negative (Negative) Ur Leukocyte Esterase 1+ H (Negative) Urine WBC (Auto) >50 H (0-5) /hpf Urine RBC (Auto) 3-5 H (0-2) /hpf U Hyaline Cast (Auto) 3-5 H (0-2) /lpf U Epithel Cells (Auto) 0-2 (0-2) /hpf Urine Bacteria (Auto) 4+ H (None Seen)
[2024-12-18] MEDS: POTASSIUM CHLORIDE / WTR 10 MEQ/100 ML PLCT IV SCH (08:54)
[2024-12-18] MEDS: ASPIRIN 81 MG ECTAB PO SCH (08:58)
[2024-12-18] MEDS: dilTIAZem HCL 180 MG CAPCR PO SCH (09:03)
--- NOTE | 2024-12-18 09:05 | Hospitalist Progress Note ---
Date of Service December 18, 2024 Assessment & Plan (1) SBO (small bowel obstruction): Plan: This is a 69-year-old female with past medical history significant for hypothyroidism, hyperlipidemia, idiopathic chronic gout of multiple sites, polycystic ovarian syndrome, type 2 diabetes, ovarian cancer in remission, COPD, obstructive sleep apnea, chronic atrial fibrillation, hypertension, morbid obesity, GERD, CKD stage III, benign paroxysmal positional vertigo, depression with anxiety presents with abdominal pain and found to have small bowel obstruction. Small bowel obstruction Patient had extensive surgery for ovarian cancer in 2019 and since then she developed right inferior hernia. NG tube placed with improvement to nausea Continue bowel rest, IV fluids, pain control. Hold Pradaxa per surgery recommendations Surgery consulted - feeling better this AM with NG tube in place but not passing flatus yet. WBC decreased to 14. If she does not improve, will require transfer to tertiary care for surgical intervention given comorbidities Continue conservative mgmt for now Acute cystitis UA abnormal, preliminary urine culture growing Klebsiella pneumoniae with sensitivities pending Started Rocephin Obstructive sleep apnea On BiPAP nightly at home Currently has NG tube Use NC oxygen for now and place on BiPAP when NG tube taken out Hypothyroidism On levothyroxine Diabetes II Continue basal/bolus insulin while in-patient with reduced lantus while NPO BSG AC HS History of A-fib Continue Cardizem and metoprolol Holding Pradaxa History of ovarian cancer S/p surgery and in remission Gout On allopurinol Hyperlipidemia On statin, hold gemfibrozil GERD On famotidine Hypertension Normotensive, continue Cardizem and Lopressor Left kamara wound From the fall Wound care DVT prophylaxis: SCDs for now Code: FULL Dispo: admitted to [facility] coordinated with Dr. Powell. I spent a total of 50 minutes coordinating, documenting, and providing care for this patient excluding time spent in the performance of separately billed services or time spent by another provider/QHP. Admission and Anticipated Discharge Date Admission Date: December 17, 2024 Supervising Physician Co-Signing Physician Notes I have seen and discussed the case with the collaborating advanced practitioner. I agree with the above PN. I have reviewed and confirmed the patients medical history, the findings on physical examination, and the patients diagnosis and treatment plan with Ilia REARDON and agree with the information documented. Ms Araujo is a medical complex woman with SBO.Symptpms improving subjectively with NGT; however, still without flatus. Reviewed surgery recommendations--if no resolution may require transfer to tertiary care for surgical eval give medical complexity. UA suspicious for infection as well, CTX ongoing I spent a total of 10 minutes coordinating, documenting, and providing care for this patient excluding time spent in the performance of separately billed services. All of the aforementioned completed outside of collaborating with the assigned advanced practitioner for a full treatment plan. I have reviewed the advanced practitioner's documentation, and I agree with, and take responsibility for the plan of care Subjective Seen and examined in C4. Nausea has resolved since NG tube placed. Still having some intermittent right lower abdominal pain but it has improved. No fever, chills, lightheadedness, headache, chest pain, shortness of breath, dysuria. Review of Systems Review of Systems: At least ten systems reviewed and negative except as noted in the HPI. Physical Exam Physical Exam: Gen: WD/WN, NAD, sitting up in bed, A&Ox3, morbidly obese HEENT: Normocephalic, atraumatic, conjunctivae moist, sclerae anicteric, mucous membranes moist Lung: Clear to Auscultation bilaterally, no wheezes/rales/rhonchi Heart: Regular rate, regular rhythm, no murmurs, rubs, or gallops Abdomen: Soft, TTP RLQ, ND +hyperactive BS x 4, +large R sided hernia Extremities: no edema Skin: Warm, no rash Results & Data Results & Data Vital Signs (Past 12 Hours) Vital Signs Pulse Pulse Resp BP Pulse Ox Pulse Ox O2 Del Method 12/18/24 08:50 101 H 22 125/103 H 97 Room Air 12/18/24 07:03 85 16 98 Nasal Cannula 12/18/24 06:00 85 18 147/101 H 95 Nasal Cannula 12/18/24 02:00 88 18 127/95 97 Nasal Cannula 12/18/24 01:00 96 12/18/24 01:00 99 H 18 131/95 94 Nasal Cannula 12/18/24 00:51 101 H 20 96 Nasal Cannula 12/18/24 00:37 107 H 12/17/24 22:00 93 H 18 136/84 95 Nasal Cannula O2 Del Method O2 Flow Rate O2 Flow Rate 12/18/24 08:50 12/18/24 07:03 2 12/18/24 06:00 3 12/18/24 02:00 3 03/18/25 01:00 Nasal Cannula 2 12/18/24 01:00 2 12/18/24 00:51 2 12/18/24 00:37 12/17/24 22:00 2 Laboratory Results Short CBC 12/17/24 12/18/24 Range/Units 16:40 04:09 WBC 17.18 H 14.50 H (4.8-10.8) K/ul Hgb 16.0 14.5 (12.0-16.0) g/dl Hct 48.0 H 43.5 (37.0-47.0) % Plt Count 393 382 (130-400) K/uL BMP 12/17/24 12/18/24 16:40 04:09 Sodium 141 142 Potassium 3.6 3.4 L Chloride 99 101 Carbon Dioxide 31 34 H BUN 12 12 Creatinine 0.72 0.72 Glucose 160 H 134 H Calcium 10.0 9.3 Liver Function 12/17/24 Range/Units 16:40 Total Bilirubin 0.9 (0.2-1.0) mg/dl AST 26 (13-39) U/L ALT 23 (7-52) U/L Alkaline Phosphatase 139 H (34-104) U/L Albumin 4.1 (3.4-5.0) gm/dl Urine 12/17/24 Range/Units 21:00 Urine Color Yellow Urine Appearance Cloudy A (Clear) Urine pH 8.0 H (4.5-7.5) Ur Specific [place] > 1.045 H (1.000-1.030) Urine Protein 1+ H (Negative) Urine Glucose (UA) Negative (Negative) Diagnostic Findings Abdomen/Pelvis CT 12/17/24 17:16 INDICATION: Abdominal pain and vomiting. COMPARISON: CT from 12/25/2022. TECHNIQUE: Axial CT images of the abdomen and pelvis were obtained following IV contrast administration. Coronal and sagittal reformations were reviewed. FINDINGS: Visualized lung bases appear unremarkable. The gallbladder is surgically absent. The liver, spleen, pancreas and adrenal glands appear unremarkable. No hydronephrosis. A few small renal cysts noted. Large right lateral/inferior hernia containing fat and bowel loops. Dilated small bowel loops in the midabdomen with stranding of adjacent fat. There are some decompressed small bowel loops in the hernia sac. No pneumatosis/portal venous gas or free air. No free air. No drainable fluid collection. The urinary bladder appears unremarkable. No acute osseous abnormality evident. IMPRESSION: Findings concerning for small bowel obstruction. No pneumatosis or portal venous gas. Probable transition point in large right sided abdominal wall hernia. Electronically signed by Melecio Ren 12-17-2024 6:04 PM Chest X-Ray 12/17/24 19:13 EXAM: XR chest 1V portable CLINICAL HISTORY: After NG tube to check placement TECHNIQUE: An X-ray image of the chest is obtained in AP projection. COMPARISON: 12/25/2022 CR FINDINGS: An NG tube is noted with its distal tip below the left hemidiaphragm in appropriate location. Prominent perihilar and broncho vascular markings in bilateral lung manriquez. Radiopaque densities noted overlying the right lower chest wall, likely artifactual. Multiple chest leads are noted overlying the chest. The cardiac size is enlarged. Bilateral costophrenic angles are clear. The haziness is appreciated in the left lower zone. IMPRESSION: 1. NG tube is noted with its distal tip below the left hemidiaphragm in appropriate location. 2. Cardiomegaly with prominent broncho vascular markings in bilateral lung manriquez. Findings are suggestive of congestive changes. Stable. 3. Haziness in the left lower zone and costophrenioc angle, is likely projectional versus mild atelectatic changes. stable. Electronically signed by Tucker Navarro 12-17-2024 9:07 PM
[2024-12-18] MEDS: ASCORBIC ACID 500 MG TAB PO SCH (09:08)
[2024-12-18] MEDS: MAGNESIUM OXIDE 400 MG TAB PO SCH (09:08)
[2024-12-18] MEDS: FLUTICASONE PROPIONATE NA SPR 16 GM BTL SCH (09:17)
[2024-12-18] MEDS: cefTRIAXone SODIUM 2,000 MG/50 ML BAG IV SCH (17:09)
[2024-12-18] MEDS: ACETAMINOPHEN 1,000 MG/100 ML VIAL IV PRN (23:50)
[2024-12-19] MEDS: MELATONIN 3 MG TAB PO PRN (00:56)
[2024-12-19] MEDS: ONDANSETRON INJ 2 MG/ML 2 ML VIAL IV PRN (01:51)
[2024-12-19 07:35] LABS: Hematocrit (blood only) 43.7 % (37.0-47.0); Hemoglobin 14.3 g/dl (12.0-16.0); Mean Corpuscular Hemoglobin 30.2 pg (25.0-34.0); Mean Corpuscular Hgb Conc 32.7 g/dL (32.0-36.0); Mean Corpuscular Volume 92.4 fL (80.0-100.0); Mean Platelet Volume 10.6 fL (9.4-12.4); Platelet Count 347 K/uL (130-400); RDW Coefficient of Variation 15.6 % (11.5-14.5); RDW Standard Deviation 53.2 fL (36.4-46.3); Red Blood Count 4.73 M/uL (4.20-5.40); White Blood Count 13.83 K/ul (4.8-10.8)
[2024-12-19 07:51] LABS: Albumin Globulin Ratio 1.3 (0.9-2); Albumin Level 3.4 gm/dl (3.4-5.0); Bilirubin,Total 0.7 mg/dl (0.2-1.0); Calcium 8.7 mg/dl (8.6-10.3); Creatinine Clr Calc Pharmacy 110.3 ml/min; Globulin 2.6 gm/dl (2.5-4.0); Potassium 3.3 mmol/L (3.5-5.1)
--- NOTE | 2024-12-19 09:30 | Surgery Progress Note ---
Date of Service December 19, 2024 Assessment & Plan (1) SBO (small bowel obstruction): Plan: 69-year-old morbidly obese woman with an extensive past medical and surgical history, large known hernia, on Pradaxa for atrial fibrillation presents with a small bowel obstruction with a possible transition point within the very large hernia. An NG tube been placed. She is feeling much better. We will observe for now. If she requires surgery, she will most likely need to be done at a tertiary care center due to all of her comorbidities as well as her large hernia with loss of domain of her abdomen. We will continue to follow while she is in the hospital. 12/19/2024- + bm x 2, 900 cc output NGT last shift, not passing much flatus. White blood cell count decreased to 13. Will continue to monitor. Hopefully discontinue NGT this afternoon, okay for ice chips/sips. Encouraged oob to chair and ambulation to expedite NGT removal. Discussed with DR. hull who agrees with above Admission and Anticipated Discharge Date Admission Date: December 17, 2024 Subjective feeling better this morning two bowel movements, not passing much flatus however no n,v, some gagging due to the NGT no abdominal pain per nurse had 900 in last shift, dark brown in nature soft liquid bowel movements this am Physical Exam Constitutional: WD/WN, vitals as above + morbidly obese, cooperative and comfortable; no acute distress and not ill appearing Respiratory: normal respiratory effort; no respiratory distress and no labored breathing Gastrointestinal (Abdomen): Inspection/Auscultation: abdomen normal to inspection and + visible herniation (large ventral hernia ); abdomen not distended Percussion/Palpation: abdomen soft; abdomen nontender, no guarding, abdomen not rigid and abdomen not firm NGT with dark brown/dark red in tubing Skin: no rashes, warm and dry Psychiatric: Orientation: alert and oriented x 3 Results & Data Vital Signs (Past 12 Hours) Vital Signs Temp Pulse Pulse Resp BP Pulse Ox Pulse Ox 12/19/24 07:30 37.2 C 85 20 145/95 H 95 12/19/24 07:23 105 H 12/19/24 07:22 93 H 16 95 12/19/24 03:57 36.7 C 98 H 20 156/93 H 94 12/19/24 01:00 93 12/18/24 23:56 12/18/24 23:56 36.8 C 99 H 20 156/91 H 93 12/18/24 21:46 88 O2 Del Method O2 Del Method O2 Flow Rate O2 Flow Rate 12/19/24 07:30 Nasal Cannula 2 12/19/24 07:23 12/19/24 07:22 Nasal Cannula 2 12/19/24 03:57 Nasal Cannula 2 12/19/24 01:00 Nasal Cannula 2 12/18/24 23:56 Nasal Cannula 3 12/18/24 23:56 Nasal Cannula 2 12/18/24 21:46 Laboratory Results 12/19/24 12/19/24 12/18/24 Range/Units 05:57 05:38 22:49 WBC 13.83 H (4.8-10.8) K/ul RBC 4.73 (4.20-5.40) M/uL Hgb 14.3 (12.0-16.0) g/dl Hct 43.7 (37.0-47.0) % MCV 92.4 (80.0-100.0) fL MCH 30.2 (25.0-34.0) pg MCHC 32.7 (32.0-36.0) g/dL RDW Std Deviation 53.2 H (36.4-46.3) fL RDW Coeff of Faraz 15.6 H (11.5-14.5) % Plt Count 347 (130-400) K/uL MPV 10.6 (9.4-12.4) fL Sodium 145 (136-145) mmol/L Potassium 3.3 L (3.5-5.1) mmol/L Chloride 105 (98-107) mmol/L Carbon Dioxide 32 (21-32) mmol/L Anion Gap 8 (3-11) BUN 13 (6-23) mg/dl Creatinine 0.65 (0.6-1.2) mg/dl Est Cr Clr Drug Dosing 110.3 ml/min eGFR 95.25 BUN/Creatinine Ratio 20.0 (10-20) Glucose 117 H (70-99(Fasting)) mg/dl POC Glucose 119 H 118 H (70-99) mg/dl Calcium 8.7 (8.6-10.3) mg/dl Total Bilirubin 0.7 (0.2-1.0) mg/dl AST 19 (13-39) U/L ALT 15 (7-52) U/L Alkaline Phosphatase 104 (34-104) U/L Total Protein 6.0 (6.0-8.3) gm/dl Albumin 3.4 (3.4-5.0) gm/dl Globulin 2.6 (2.5-4.0) gm/dl Albumin/Globulin Ratio 1.3 (0.9-2) 12/18/24 12/18/24 Range/Units 17:45 11:35 WBC (4.8-10.8) K/ul RBC (4.20-5.40) M/uL Hgb (12.0-16.0) g/dl Hct (37.0-47.0) % MCV (80.0-100.0) fL MCH (25.0-34.0) pg MCHC (32.0-36.0) g/dL RDW Std Deviation (36.4-46.3) fL RDW Coeff of Faraz (11.5-14.5) % Plt Count (130-400) K/uL MPV (9.4-12.4) fL Sodium (136-145) mmol/L Potassium (3.5-5.1) mmol/L Chloride (98-107) mmol/L Carbon Dioxide (21-32) mmol/L Anion Gap (3-11) BUN (6-23) mg/dl Creatinine (0.6-1.2) mg/dl Est Cr Clr Drug Dosing ml/min eGFR BUN/Creatinine Ratio (10-20) Glucose (70-99(Fasting)) mg/dl POC Glucose 124 H 124 H (70-99) mg/dl Calcium (8.6-10.3) mg/dl Total Bilirubin (0.2-1.0) mg/dl AST (13-39) U/L ALT (7-52) U/L Alkaline Phosphatase (34-104) U/L Total Protein (6.0-8.3) gm/dl Albumin (3.4-5.0) gm/dl Globulin (2.5-4.0) gm/dl Albumin/Globulin Ratio (0.9-2)
--- NOTE | 2024-12-19 11:48 | Hospitalist Progress Note ---
Date of Service December 19, 2024 Assessment & Plan (1) SBO (small bowel obstruction): Plan: This is a 69-year-old female with past medical history significant for hypothyroidism, hyperlipidemia, idiopathic chronic gout of multiple sites, polycystic ovarian syndrome, type 2 diabetes, ovarian cancer in remission, COPD, obstructive sleep apnea, chronic atrial fibrillation, hypertension, morbid obesity, GERD, CKD stage III, benign paroxysmal positional vertigo, depression with anxiety presents with abdominal pain and found to have small bowel obstruction. Small bowel obstruction Patient had extensive surgery for ovarian cancer in 2019 and since then she developed right inferior hernia Complex anatomy and if surgery is required will need to be transferred to tertiary care NG tube placed with improvement to nausea, 900cc output overnight. Had 2 bowel movements this AM, abdominal pain improved Okay for ice chips/sips, gen surg may remove NG tube this afternoon. Encourage OOB and ambulation Continue bowel rest, IV fluids, pain control. Holding Pradaxa per surgery recommendations - consider resuming tomorrow if continued improvement Acute cystitis Urine culture growing pansensitive Klebsiella pneumoniae Continue Rocephin (day#2) Obstructive sleep apnea On BiPAP nightly at home Currently has NG tube Use NC oxygen for now and resume BiPAP when NG tube removed Hypothyroidism On levothyroxine Diabetes II Continue basal/bolus insulin while in-patient with reduced lantus while NPO BSG AC HS History of A-fib Continue Cardizem and metoprolol Holding Pradaxa for now - consider resuming tomorrow once diet resumed History of ovarian cancer S/p surgery and in remission Gout On allopurinol Hyperlipidemia On statin, hold gemfibrozil GERD On famotidine Hypertension Normotensive, continue Cardizem and Lopressor Left kamara wound From the fall, dressing in place Wound care Morbid obesity BMI 49 DVT prophylaxis: SCDs for now Code: FULL Dispo: admitted to [facility] coordinated with Dr. Nielsen. I spent a total of 45 minutes coordinating, documenting, and providing care for this patient excluding time spent in the performance of separately billed services or time spent by another provider/QHP. Admission and Anticipated Discharge Date Admission Date: December 17, 2024 Supervising Physician Co-Signing Physician Notes Patient is seen and examined at bedside. States feeling better today. Had 2 bowel movements today. Denies any nausea, vomiting, chest pain, dyspnea. On exam patient is obese, no apparent distress, normocephalic atraumatic, EOMI, normal breath sounds, clear to auscultation, S1-S2, no murmur, abdomen soft, protuberant, normal bowel sounds, + hernia, alert, awake, oriented, grossly no focal deficits, no pedal edema. Patient is currently being managed for small bowel obstruction, UTI. Conservative management for now. Likely plan to be discontinued on NG tube today. Diet as per surgery. Appreciate surgery input. Denies any abdominal pain. Replete electrolytes as needed. Continue IV Rocephin for UTI for now. Gentle IV fluids. I personally interviewed and examined the patient at bedside. I have reviewed the advanced practitioner's documentation on the date of service referred in note and agree with plan. Patient's care is coordinated with Verena Morillo PA-C. Please refer to the documentation above for details of patient's presentation and for discussion of other issues. I spent a total [id number] coordinating, documenting, and providing care for this patient excluding time spent in the performance of separately billed services or time spent by another provider/QHP. Subjective Seen and evaluated in 289-1. Feeling better today and had 2 bowel movements this AM. Abdominal discomfort has resolved. Still with NG tube in place with dark brown output. No F/C, lightheadedness, CP, SOB, N/V, dysuria. Review of Systems Review of Systems: At least ten systems reviewed and negative except as noted in the HPI. Physical Exam Physical Exam: Gen: WD/WN, NAD, resting in bed, A&Ox3, morbidly obese HEENT: Normocephalic, atraumatic, conjunctivae moist, sclerae anicteric, mucous membranes moist Lung: Clear to Auscultation bilaterally, no wheezes/rales/rhonchi Heart: Regular rate, regular rhythm, no murmurs, rubs, or gallops Abdomen: Soft, NT, ND +normoactive BS x 4, +large R sided hernia Extremities: no edema Skin: Warm, no rash Results & Data Results & Data Vital Signs (Past 12 Hours) Vital Signs Temp Pulse Pulse Resp BP Pulse Ox Pulse Ox 12/19/24 11:09 37.5 C 95 H 18 132/80 92 12/19/24 10:42 91 H 18 96 12/19/24 10:00 12/19/24 07:30 37.2 C 85 20 145/95 H 95 12/19/24 07:23 105 H 12/19/24 07:22 93 H 16 95 12/19/24 03:57 36.7 C 98 H 20 156/93 H 94 12/19/24 01:00 93 12/18/24 23:56 12/18/24 23:56 36.8 C 99 H 20 156/91 H 93 O2 Del Method O2 Del Method O2 Flow Rate O2 Flow Rate 12/19/24 11:09 Nasal Cannula 2 12/19/24 10:42 Room Air 12/19/24 10:00 Nasal Cannula 2 12/19/24 07:30 Nasal Cannula 2 12/19/24 07:23 12/19/24 07:22 Nasal Cannula 2 12/19/24 03:57 Nasal Cannula 2 12/19/24 01:00 Nasal Cannula 2 12/18/24 23:56 Nasal Cannula 3 12/18/24 23:56 Nasal Cannula 2 Laboratory Results Short CBC 12/19/24 Range/Units 05:57 WBC 13.83 H (4.8-10.8) K/ul Hgb 14.3 (12.0-16.0) g/dl Hct 43.7 (37.0-47.0) % Plt Count 347 (130-400) K/uL BMP 12/19/24 05:57 Sodium 145 Potassium 3.3 L Chloride 105 Carbon Dioxide 32 BUN 13 Creatinine 0.65 Glucose 117 H Calcium 8.7 Liver Function 12/19/24 Range/Units 05:57 Total Bilirubin 0.7 (0.2-1.0) mg/dl AST 19 (13-39) U/L ALT 15 (7-52) U/L Alkaline Phosphatase 104 (34-104) U/L Albumin 3.4 (3.4-5.0) gm/dl Diagnostic Findings Abdomen/Pelvis CT 12/17/24 17:16 INDICATION: Abdominal pain and vomiting. COMPARISON: CT from 12/25/2022. TECHNIQUE: Axial CT images of the abdomen and pelvis were obtained following IV contrast administration. Coronal and sagittal reformations were reviewed. FINDINGS: Visualized lung bases appear unremarkable. The gallbladder is surgically absent. The liver, spleen, pancreas and adrenal glands appear unremarkable. No hydronephrosis. A few small renal cysts noted. Large right lateral/inferior hernia containing fat and bowel loops. Dilated small bowel loops in the midabdomen with stranding of adjacent fat. There are some decompressed small bowel loops in the hernia sac. No pneumatosis/portal venous gas or free air. No free air. No drainable fluid collection. The urinary bladder appears unremarkable. No acute osseous abnormality evident. IMPRESSION: Findings concerning for small bowel obstruction. No pneumatosis or portal venous gas. Probable transition point in large right sided abdominal wall hernia. Electronically signed by Melecio Ren 12-17-2024 6:04 PM Chest X-Ray 12/17/24 19:13 EXAM: XR chest 1V portable CLINICAL HISTORY: After NG tube to check placement TECHNIQUE: An X-ray image of the chest is obtained in AP projection. COMPARISON: 12/25/2022 CR FINDINGS: An NG tube is noted with its distal tip below the left hemidiaphragm in appropriate location. Prominent perihilar and broncho vascular markings in bilateral lung manriquez. Radiopaque densities noted overlying the right lower chest wall, likely artifactual. Multiple chest leads are noted overlying the chest. The cardiac size is enlarged. Bilateral costophrenic angles are clear. The haziness is appreciated in the left lower zone. IMPRESSION: 1. NG tube is noted with its distal tip below the left hemidiaphragm in appropriate location. 2. Cardiomegaly with prominent broncho vascular markings in bilateral lung manriquez. Findings are suggestive of congestive changes. Stable. 3. Haziness in the left lower zone and costophrenioc angle, is likely projectional versus mild atelectatic changes. stable. Electronically signed by Tucker Navarro 12-17-2024 9:07 PM
[2024-12-19] MEDS ORDERED: POTASSIUM CHLORIDE 20 MEQ in SODIUM CHLORIDE 0.9% 1,000 ML IV SCH (12:00)
[2024-12-19] MEDS: POTASSIUM CHLORIDE / WTR 10 MEQ/100 ML PLCT IV SCH (12:10)
[2024-12-19] MEDS: NSS + 20MEQ KCL 20 MEQ/1,000 ML BAG IV SCH (14:10)
[2024-12-19] MEDS ORDERED: Nursing to Pharmacy Communication SCH (18:30)
[2024-12-19] MEDS: INSULIN ASPART PER UNIT CHARGE SC SCH (20:16)
[2024-12-20 06:07] LABS: Hematocrit (blood only) 40.2 % (37.0-47.0); Hemoglobin 13.3 g/dl (12.0-16.0); Mean Corpuscular Hemoglobin 30.6 pg (25.0-34.0); Mean Corpuscular Hgb Conc 33.1 g/dL (32.0-36.0); Mean Corpuscular Volume 92.4 fL (80.0-100.0); Mean Platelet Volume 10.4 fL (9.4-12.4); Platelet Count 333 K/uL (130-400); RDW Coefficient of Variation 15.7 % (11.5-14.5); RDW Standard Deviation 53.3 fL (36.4-46.3); Red Blood Count 4.35 M/uL (4.20-5.40); White Blood Count 12.36 K/ul (4.8-10.8)
[2024-12-20 06:12] LABS: BUN Creatinine Ratio 20.3 (10-20); Calcium 8.3 mg/dl (8.6-10.3); Potassium 3.5 mmol/L (3.5-5.1)
--- NOTE | 2024-12-20 07:26 | Hospitalist Progress Note ---
Date of Service December 20, 2024 Assessment & Plan (1) SBO (small bowel obstruction): Plan: This is a 69-year-old female with past medical history significant for hypothyroidism, hyperlipidemia, idiopathic chronic gout of multiple sites, polycystic ovarian syndrome, type 2 diabetes, ovarian cancer in remission, COPD, obstructive sleep apnea, chronic atrial fibrillation, hypertension, morbid obesity, GERD, CKD stage III, benign paroxysmal positional vertigo, depression with anxiety presents with abdominal pain and found to have small bowel obstruction. Small bowel obstruction Patient had extensive surgery for ovarian cancer in 2019 and since then she developed right inferior hernia Complex anatomy and if surgery is required will need to be transferred to tertiary care NG tube placed with improvement to nausea, 900cc output overnight. Had 2 bowel movements this AM, abdominal pain improved Okay for ice chips/sips, gen surg may remove NG tube this afternoon. Encourage OOB and ambulation Continue bowel rest, IV fluids, pain control. Holding Pradaxa per surgery recommendations - consider resuming tomorrow if continued improvement Acute cystitis Urine culture growing pansensitive Klebsiella pneumoniae Continue Rocephin (day#2) Obstructive sleep apnea On BiPAP nightly at home Currently has NG tube Use NC oxygen for now and resume BiPAP when NG tube removed Hypothyroidism On levothyroxine Diabetes II Continue basal/bolus insulin while in-patient with reduced lantus while NPO BSG AC HS History of A-fib Continue Cardizem and metoprolol Holding Pradaxa for now - consider resuming tomorrow once diet resumed History of ovarian cancer S/p surgery and in remission Gout On allopurinol Hyperlipidemia On statin, hold gemfibrozil GERD On famotidine Hypertension Normotensive, continue Cardizem and Lopressor Left kamara wound From the fall, dressing in place Wound care Morbid obesity BMI 49 DVT prophylaxis: SCDs for now Code: FULL Dispo: admitted to [facility] coordinated with Dr. Nielsen. I spent a total of 45 minutes coordinating, documenting, and providing care for this patient excluding time spent in the performance of separately billed services or time spent by another provider/QHP. Admission and Anticipated Discharge Date Admission Date: December 17, 2024 Results & Data Results & Data Vital Signs (Past 12 Hours) Vital Signs Temp Pulse Pulse Pulse Resp BP Pulse Ox 12/20/24 07:07 82 14 90 12/20/24 03:54 37.1 C 76 18 108/65 91 12/20/24 01:00 12/19/24 22:53 37.1 C 88 18 135/77 94 12/19/24 22:35 66 12/19/24 22:01 12/19/24 19:34 87 18 95 Pulse Ox O2 Del Method O2 Del Method O2 Flow Rate O2 Flow Rate 12/20/24 07:07 Nasal Cannula 2 12/20/24 03:54 Nasal Cannula 2 12/20/24 01:00 94 Nasal Cannula 2 12/19/24 22:53 Nasal Cannula 2 12/19/24 22:35 12/19/24 22:01 Room Air, Nasal Cannula 2 12/19/24 19:34 Room Air
[2024-12-20] MEDS: cefTRIAXone SODIUM 2,000 MG/50 ML BAG IV SCH (08:44)
--- NOTE | 2024-12-20 10:07 | Surgery Progress Note ---
Date of Service December 20, 2024 Assessment & Plan (1) SBO (small bowel obstruction): Plan: 69-year-old morbidly obese woman with an extensive past medical and surgical history, large known hernia, on Pradaxa for atrial fibrillation presents with a small bowel obstruction with a possible transition point within the very large hernia. 12/20/2024- avss + bowel function NGT removed and tolerating clear liquids abdominal pain resolved Plan: Okay to advance diet as tolerated no surgical intervention required continue medical management if tolerates advanced diet can d/c home and resume oral Pradaxa Discussed with DR. hull who agrees with above Admission and Anticipated Discharge Date Admission Date: December 17, 2024 Subjective feeling good this morning no abdominal pain no n,v tolerating clear liquids another formed bowel movement yesterday afternoon Review of Systems Review of Systems: All systems reviewed & are unremarkable except as noted in HPI & below Physical Exam Constitutional: WD/WN, vitals as above + morbidly obese, cooperative and comfortable; no acute distress and not ill appearing Respiratory: normal respiratory effort; no respiratory distress and no labored breathing Gastrointestinal (Abdomen): Inspection/Auscultation: abdomen normal to inspection; abdomen not distended Percussion/Palpation: abdomen soft and + hernia (large ventral hernia with loss of domain); abdomen nontender, no guarding, abdomen not rigid and abdomen not firm Skin: no rashes, warm and dry Psychiatric: A+Ox3, euthymic affect Results & Data Vital Signs (Past 12 Hours) Vital Signs Temp Pulse Pulse Resp BP Pulse Ox Pulse Ox 12/20/24 07:37 36.8 C 91 H 16 131/80 92 12/20/24 07:07 82 14 90 12/20/24 05:53 74 12/20/24 03:54 37.1 C 76 18 108/65 91 12/20/24 01:00 94 12/19/24 22:53 37.1 C 88 18 135/77 94 12/19/24 22:35 66 O2 Del Method O2 Del Method O2 Flow Rate O2 Flow Rate 12/20/24 07:37 Nasal Cannula 2 12/20/24 07:07 Nasal Cannula 2 12/20/24 05:53 12/20/24 03:54 Nasal Cannula 2 12/20/24 01:00 Nasal Cannula 2 12/19/24 22:53 Nasal Cannula 2 12/19/24 22:35 Laboratory Results 12/20/24 12/20/24 12/19/24 Range/Units 08:26 05:18 19:59 WBC 12.36 H (4.8-10.8) K/ul RBC 4.35 (4.20-5.40) M/uL Hgb 13.3 (12.0-16.0) g/dl Hct 40.2 (37.0-47.0) % MCV 92.4 (80.0-100.0) fL MCH 30.6 (25.0-34.0) pg MCHC 33.1 (32.0-36.0) g/dL RDW Std Deviation 53.3 H (36.4-46.3) fL RDW Coeff of Faraz 15.7 H (11.5-14.5) % Plt Count 333 (130-400) K/uL MPV 10.4 (9.4-12.4) fL Sodium 140 (136-145) mmol/L Potassium 3.5 (3.5-5.1) mmol/L Chloride 106 (98-107) mmol/L Carbon Dioxide 30 (21-32) mmol/L Anion Gap 4 (3-11) BUN 13 (6-23) mg/dl Creatinine 0.64 (0.6-1.2) mg/dl Est Cr Clr Drug Dosing 112.0 ml/min eGFR 95.60 BUN/Creatinine Ratio 20.3 H (10-20) Glucose 112 H (70-99(Fasting)) mg/dl POC Glucose 96 141 H (70-99) mg/dl Calcium 8.3 L (8.6-10.3) mg/dl Magnesium 2.0 (1.7-2.4) mg/dl 12/19/24 12/19/24 Range/Units 17:31 11:56 WBC (4.8-10.8) K/ul RBC (4.20-5.40) M/uL Hgb (12.0-16.0) g/dl Hct (37.0-47.0) % MCV (80.0-100.0) fL MCH (25.0-34.0) pg MCHC (32.0-36.0) g/dL RDW Std Deviation (36.4-46.3) fL RDW Coeff of Faraz (11.5-14.5) % Plt Count (130-400) K/uL MPV (9.4-12.4) fL Sodium (136-145) mmol/L Potassium (3.5-5.1) mmol/L Chloride (98-107) mmol/L Carbon Dioxide (21-32) mmol/L Anion Gap (3-11) BUN (6-23) mg/dl Creatinine (0.6-1.2) mg/dl Est Cr Clr Drug Dosing ml/min eGFR BUN/Creatinine Ratio (10-20) Glucose (70-99(Fasting)) mg/dl POC Glucose 124 H 118 H (70-99) mg/dl Calcium (8.6-10.3) mg/dl Magnesium (1.7-2.4) mg/dl
--- NOTE | 2024-12-20 10:30 | Discharge Summary ---
Date of Service December 20, 2024 Admission HPI Per Admitting Provider 69-year-old female with past medical history significant for hypothyroidism, hyperlipidemia, idiopathic chronic gout of multiple sites, polycystic ovarian syndrome, type 2 diabetes, ovarian cancer in remission, COPD, obstructive sleep apnea, chronic atrial fibrillation, hypertension, morbid obesity, GERD, CKD stage III, benign paroxysmal positional vertigo, depression with anxiety presents with abdominal pain and found to have small bowel obstruction. Patient says since last Tuesday she is having abdominal pain in the lower abdomen. Associated with several episodes of nausea and vomiting. Since last Tuesday she did not moved her bowels and not passing gas. Currently status post NG tube. Pain is better currently. Was having right-sided rib pain. No shortness of breath. No cough. Has had some chronic runny nose. Afebrile. Hemodynamics are okay.Patient had extensive surgery for ovarian cancer in 2019 and since then she developed right inferior hernia. Past medical history. As mentioned above. Past surgical history. Breast lesion excision left side. Dental surgery. Cholecystectomy. Bilateral debridement of skin and subcutaneous tissue.Extensive surgery for ovarian cancer in 2019 Social history. . Quit smoking 1976. Smoked for 1 year. Alcohol rarely. No drug use. Family history. No family history on file. Admission Exam Per Admitting Provider General-Not in distress Head- atraumatic Eyes- PERRL. ENT- oropharynx clear Neck- supple, no JVD. Lungs- clear to auscultation no wheezing or crackles Heart- regular rhythm; no murmur, no gallop. Abdomen- absent bowel sounds, soft, mild diffuse discomfort, mild rash in abdominal folds Extremities- no pretibial edema, superficial wound seen on left kamara Neuro- alert, oriented PERRL, no facial palsy; no dysarthria; moves extremities Principal Diagnosis Small Bowel Obstruction Discharge Exam Neuro: AAOx4, PERRLA, no aphagia, memory changes, CNII-XII grossly intact HEENT: head normocephalic, moist mucus membranes CV: S1/S2, (-) M/G/R, (-) edema, cap refill < 3 seconds Resp: Lungs CTA in all manriquez. On RA GI: Abdomen S/NT/ND, Ax4 bowel sounds, (-) CVA tenderness Musculoskeletal: 5/5 B/L UE strength, 5/5 B/L LE strength. No gait disturbance Skin: (-) rashes , (-) erythema. Bilateral lower extremity lymphedema Psych: euthymic mood Discharge Data Allergies Allergy/AdvReac Type Severity Reaction Status Date / Time GIN Inhibitors Allergy Unknown UNK Verified 12/17/24 15:57 cat dander Allergy Unknown UNK Verified 12/17/24 15:57 cockroach Allergy Unknown Unknown Verified 12/17/24 23:43 codeine Allergy Unknown Nausea Verified 12/17/24 15:57 house dust Allergy Unknown Unknown Verified 12/17/24 15:57 hydrocodone Allergy Unknown Nausea Verified 12/17/24 15:57 meperidine Allergy Unknown Nausea Verified 12/17/24 15:57 morphine Allergy Unknown Nausea Verified 12/17/24 15:57 pioglitazone Allergy Unknown UNK Verified 12/17/24 15:57 tree and shrub pollen Allergy Unknown Unknown Verified 12/17/24 15:57 nickel AdvReac Intermediate Redness of Verified 12/17/24 15:57 Skin Consultations 12/17/24 20:06 ED Decision to Admit Stat 12/18/24 08:00 Consult General Surgery Routine Ordered Studies 12/17: Abdomen and Pelvis CT: FINDINGS: -Visualized lung bases appear unremarkable. -The gallbladder is surgically absent. The liver, spleen, pancreas and adrenal glands appear unremarkable. No hydronephrosis. A few small renal cysts noted. -Large right lateral/inferior hernia containing fat and bowel loops. Dilated small bowel loops in the midabdomen with stranding of adjacent fat. There are some decompressed small bowel loops in the hernia sac. No pneumatosis/portal venous gas or free air. No free air. No drainable fluid collection. -The urinary bladder appears unremarkable. -No acute osseous abnormality evident. IMPRESSION: -Findings concerning for small bowel obstruction. No pneumatosis or portal venous gas. Probable transition point in large right sided abdominal wall hernia. 12/17/24: Chest X-ray: IMPRESSION: 1. NG tube is noted with its distal tip below the left hemidiaphragm in appropriate location. 2. Cardiomegaly with prominent broncho vascular markings in bilateral lung manriquez. Findings are suggestive of congestive changes. Stable. 3. Haziness in the left lower zone and costophrenioc angle, is likely projectional versus mild atelectatic changes. stable. Hospital Course (1) SBO (small bowel obstruction): (2) Abdominal wall hernia: (3) Uncontrolled type 2 diabetes mellitus with hyperglycemia, with long-term current use of insulin: (4) HTN (hypertension): (5) HLD (hyperlipidemia): (6) COPD (chronic obstructive pulmonary disease): (7) NAVI (obstructive sleep apnea): (8) Depression: (9) Hypothyroid: Plan This is a 69-year-old female with past medical history significant for hypothyroidism, hyperlipidemia, idiopathic chronic gout of multiple sites, polycystic ovarian syndrome, type 2 diabetes, ovarian cancer in remission, COPD, obstructive sleep apnea, chronic atrial fibrillation, hypertension, morbid obesity, GERD, CKD stage III, benign paroxysmal positional vertigo, depression with anxiety presents with abdominal pain and found to have small bowel obstruction. Patient had extensive surgery for ovarian cancer in 2019 and since developed a right inferior hernia. During this admission due to her complex anatomy if surgery was required she would need to be transferred to a tertiary care center for intervention. Upon arrival to the ED and abdominal and pelvis CT was obtained and results/findings were concerning for small bowel obstruction. She was evaluated by general surgery Who Recommended Having an NG Tube Placed Which Did Improve Her Symptoms. Her NG Tube Put out 900 Cc over 24 Hours.. She Reportedly Had 2 Bowel Movements over the past 24 Hours and Her Abdominal Pain Has Improved As Well. She Has Tolerated Advancement of Her Diet. She Has Been Out Of Bed and Ambulating without Complication. She Was Given IV Fluids and Pain Control over the past 24 Hours Has Significantly Improved. Initially Her Pradaxa Was on Hold per Surgery Recommendation. Today 12/20 Discussed with General Surgery That Her Condition Has Markedly Improved. Her Pradaxa Was Resumed Today Stable and Her IV Fluids Were Discontinued. On admission, a UA and urine culture were obtained. Her urine culture grew Pansensitive Klebsiella Pneumoniae and she was started on IV Rocephin. She r eceived 3 days worth of IV Rocephin while inpatient and will continue with Cefdinir twice daily x 2 days on discharge. Patient had some hypoxia requiring 2 L nasal cannula which I suspect is related to obesity hypoventilation syndrome. A two-step urinalysis performed prior to discharge and her saturations did not drop below 91% therefore not qualifying her for home O2. She would benefit from a nocturnal oxygen study to be arranged through her PCP at follow-up. She reports that she has had sleep studies in the past as well but does not wear a CPAP at home. Patient has been deemed stable for discharge medically optimized. Total Time Total Time Spent Total Time Spent (In Minutes): I spent a total of 68 minutes coordinating, documenting, and providing care for this patient excluding time spent inthe performance of separately billed services or time spent by another provider/QHP. Discharge Plan Discharge Items Patient Disposition: Home - Self-Care Reason For Visit: SBO, HX OF FIB Discharge Diagnosis: Small bowel obstruction Urinary tract infection Condition on Discharge: Good Activity: Resume your previous activity Bathing: No limitations Exercise/Sports: Gradually increase as tolerated Weightbearing: Full weightbearing Non-emergency contact: Primary Care Provider Call non-emergency contact if: you have any medication questions, your symptoms worsen, your pain is worsening, your pain is concerning for you and your temperature is above 101 Follow-up/Referrals: Mohsen Vazquez MD [Primary Care Provider] - 12/26/24 11:00 am (Date & Time 12/26/2024 11:00 AM Provider: Mohsen Vazquez MD [facility] ) Diet: Carb Consistent or DM2 and Low Fiber Addtl Attending Provider Instructions: Klever Rios presented to the [facility] on 12/17/24 with abdominal pain. Your past medical history consisist of: hypothyroidism, hyperlipidemia, idiopathic chronic gout of multiple sites, polycystic ovarian syndrome, type 2 diabetes, ovarian cancer in remission, COPD, obstructive sleep apnea, chronic atrial fibrillation, hypertension, morbid obesity, GERD, CKD stage III, benign paroxysmal positional vertigo, and depression. Upon arrival to the ED and abdominal and pelvis CT was obtained and results/findings were concerning for small bowel obstruction. You were evaluated by Dr. Clay and the general surgery team who recommended having an NG (nasogastric) Tube placed which did improve your symptoms. You reportedly had 2 Bowel Movements over the past 24 Hours and Your pain has improved. You have tolerated your advancing of your diet and you have been out of bed ambulating without complication. Your pain has been controlled as well. She has been out of bed and ambulating without complication. Patient had extensive surgery for ovarian cancer in 2019 and since developed a right inferior hernia. During this admission due to her complex anatomy if surgery was required she would need to be transferred to a tertiary care center for intervention. Initially, her Pradaxa was placed on hold per surgical recommendations. Today 12/20 discussed with general surgery that her condition has markedly improved. Her Pradaxa was resumed today stable and her IV Fluids were discontinued. On admission, a UA and urine culture were obtained. Her urine culture grew Pansensitive Klebsiella Pneumoniae and she was started on IV Rocephin. She received 3 days worth of IV Rocephin while inpatient and will continue with Cefdinir twice daily x 2 days on discharge. Patient had some hypoxia requiring 2 L nasal cannula which I suspect is related to obesity hypoventilation syndrome. A two-step urinalysis performed prior to discharge and her saturations did not drop below 91% therefore not qualifying her for home O2. She would benefit from a nocturnal oxygen study to be arranged through her PCP at follow-up. She reports that she has had sleep studies in the past as well but does not wear a CPAP at home. Patient has been deemed stable for discharge medically optimized. MEDICATION CHANGES: 1. We will continue oral antibiotics for treatment of your urinary tract infect ion upon discharge from the hospital; Cefdinir 300 mg twice daily for two additional days. Please take your first dose on Thursday 12/21 and complete after your second dose on Friday 12/22. 2. Please take a probiotic daily while on antibiotics and complete one week after completion of your antibiotics, finishing on Friday 12/29. 3. I ordered Potassium Chloride 20 mEq to take only when you take your as needed Lasix. Lasix removes potassium from your body and this will aid supplementation of this. Please stop taking your home Potassium 99mEQ. 4. Continue low fiber diet for now. Discuss with your primary care physician for further recommendations SUMMARY OF TEST RESULTS: Your urine culture was positive for klebsiella pneumonia. You were started on IV Rocephin while you were here and will continue with oral antibiotics upon discharge. RECOMMENDATIONS FOR FOLLOW-UP: 12/26/2024 11:00 AM Provider: Mohsen Vazquez MD [facility] OTHER INSTRUCTIONS: Seek medical attention if you have: * temperature above 101 * chest pain or trouble breathing * abdominal pain, nausea, vomiting * diarrhea, dark stools or bloody stools * any unanswered questions or concerns Call 911 if symptoms are severe. Please take good care of yourself. It has been a pleasure taking care of you. Please take care of yourself. If you have any questions regarding your recent hospitalization please contact [facility] and request Cally Duarte @ [phone]. Pending Studies at Discharge: No Stand-Alone Forms: My [facility], Smoking Cessation Medications and DC Order Prescriptions: New potassium chloride 20 mEq tablet extended release 20 meq PO BID PRN (Reason: Take when you take Lasix ) Qty: 30 0RF cefdinir 300 mg capsule 300 mg PO BID Qty: 4 0RF Rx Instructions: Take one pill twice daily starting on 12/21 and completing after your second dose on 12/22 Probiotic 15 billion cell capsule 1 cap PO .daily Qty: 14 0RF Continued (DME) pen needle, diabetic [Clickfine Pen Needle] 31 gauge x 5/16" needle See Rx Instructions .Route Qty: 500 3RF Rx Instructions: Use 5 per day gabapentin 600 mg tablet 600 mg PO TID Qty: 270 1RF magnesium 200 mg tablet 100 mg PO QAM ascorbic acid (vitamin C) 1,000 mg tablet 1 g PO QAM [id number] mg tablet 1 tab PO BID zinc 50 mg tablet 100 mg PO QAM coenzyme Q10 400 mg capsule 400 mg PO DAILY diltiazem HCl 360 mg capsule,extended release 24 hr 360 mg PO DAILY insulin lispro [Humalog KwikPen Insulin] 100 unit/mL insulin pen 15 unit SUBCUT TID Rx Instructions: Inject with meals (DME) Dexcom G6 Sensor Device See Rx Instructions .ROUTE Rx Instructions: As directed tirzepatide 10 mg/0.5 mL pen injector 10 mg subcut Q7D Qty: 2 6RF Rx Instructions: MONDAYS atorvastatin 40 mg Tablet 40 mg PO HS allopurinol 100 mg Tablet 100 mg PO BID aspirin [Tiara Low Dose Aspirin] 81 mg Tablet,Delayed Release (Dr/Ec) 81 mg PO QAM gemfibrozil 600 mg Tablet 600 mg PO BID mometasone 50 mcg/actuation [place],Non-Aerosol 2 spray INTRANASAL QAM levothyroxine 112 mcg Tablet 112 mcg PO QAM metoprolol tartrate 25 mg Tablet 25 mg PO BID albuterol sulfate 2.5 mg /3 mL (0.083 %) Solution For Nebulization 2.5 mg INHALATION Q4H PRN (Reason: Wheezing) diclofenac sodium 1 % gel 2 g topical QID dabigatran etexilate [Pradaxa] 150 mg Capsule 150 mg PO BID Qty: 14 0RF Rx Instructions: resume 04/19 if no further bleeding famotidine [Pepcid] 20 mg tablet 20 mg PO BID furosemide [Lasix] 40 mg tablet 40 mg PO BID PRN (Reason: swelling) silver sulfadiazine 1 % cream 1 applic TOPICAL DAILY Rx Instructions: RIGHT LOWER LEG WOUND; COVER WITH GAUZE albuterol sulfate 90 mcg/actuation Hfa Aerosol Inhaler 2 inh INHALATION Q4H PRN (Reason: Wheezing) Combivent Respimat 20-100 mcg/actuation mist 1 puff INHALATION QID insulin glargine [Lantus Solostar U-100 Insulin] 100 unit/mL (3 mL) insulin pen 50 unit SUBCUT BID MDD 108 units Discontinued benzonatate 100 mg capsule 100 mg PO TID PRN (Reason: Cough) potassium 99 meq PO QAM Discharge Orders: Discharge Order (Routine); Ordered 12/20/24 Ordered By: Rosanna Cabello/Other Patient Handouts: Managing Type 2 Diabetes Admission Data Admit Date/Time: 12/17/24 20:36 Attending Provider: Erik Nielsen Admit Provider: Damián Vallejo Primary Care Provider: Mohsen Vazquez Other Providers: Bello Clay; Damián Vallejo Other Interventions: Discharge Summary Assessment (RN) Last Done: 12/20/24 11:12 Supervising Physician Co-Signing Physician Notes Patient is seen and examined at bedside on day of discharge. Continues to have bowel movements. Tolerated low fiber diet. Denies any nausea, vomiting, chest pain, dyspnea, abdominal pain. On exam patient is obese, no apparent distress, normocephalic atraumatic, EOMI, normal breath sounds, clear to auscultation, S1- S2, no murmur, abdomen soft, protuberant, normal bowel sounds, + hernia, alert, awake, oriented, grossly no focal deficits, no pedal edema. Patient is currently being managed for small bowel obstruction, UTI. Resolved with conservative management --bowel rest, IV fluids, pain control. Appreciate surgery input. Tolerated low fiber diet. Continue IV Rocephin for UTI>> transition to cefdinir on discharge to complete the course. I personally interviewed and examined the patient at bedside. I have reviewed the advanced practitioner's documentation on the date of service referred in note and agree with plan. Patient's care is coordinated with Rosanna DODGE. Please refer to the documentation above for details of patient's presentation and for discussion of other issues. I spent a total [id number] coordinating, documenting, and providing care for this patient excluding time spent in the performance of separately billed services or time spent by another provider/QHP.
[2024-12-20 11:45] VITALS: BP 121/83; PULSE 90; RESP 18; TEMP 98.1; O2SAT 91
== END 2024-12-20 15:09 | disposition home or self-care (01) | DRG 389 ==
LOC: ED 15:37 → MERGE 15:37 → EDINP 20:36 → SUATTDRO 20:36 → 2N 22:33

== ENCOUNTER 2024-12-26 23:53 | Inpatient (IN) ==
--- NOTE | 2024-12-27 00:09 | Emergency Department Note ---
History of Present Illness General Chief complaint: Constipation Stated complaint: SMALL BOWEL OBSTRUCTION,LARGE HERNIA Time Seen by Provider: 12/26/24 23:56 History of Present Illness Maximum Pain Intensity: 7 This 69-year-old female with past medical history significant for hypothyroidism, hyperlipidemia, idiopathic chronic gout of multiple sites, polycystic ovarian syndrome, type 2 diabetes, ovarian cancer in remission, COPD, obstructive sleep apnea, chronic atrial fibrillation, hypertension, morbid obesity, GERD, CKD stage III, benign paroxysmal positional vertigo, depression with anxiety presents with abdominal pain with nausea and vomiting and constipation with concerns for recurrent small bowel obstruction. Patient was recently discharged from facility for SBO. Patient denies chest pain, dyspnea, fever, chills, flulike illness. Home Medications Medication Instructions Recorded Confirmed Type allopurinol 100 mg tablet 100 mg PO BID 09/28/18 12/27/24 History aspirin 81 mg tablet,delayed 81 mg PO QAM 09/28/18 12/27/24 History release (Tiara Low Dose Aspirin) atorvastatin 40 mg tablet 40 mg PO HS 09/28/18 12/27/24 History gemfibrozil 600 mg tablet 600 mg PO BID 09/28/18 12/27/24 History levothyroxine 112 mcg tablet 112 mcg PO QAM 09/28/18 12/27/24 History metoprolol tartrate 25 mg tablet 25 mg PO BID 09/28/18 12/27/24 History mometasone 50 mcg/actuation nasal 1 - 2 spray intranasal QAM 09/28/18 12/27/24 History spray diclofenac sodium 1 % topical gel 2 g topical QID 12/09/18 12/27/24 History albuterol sulfate 2.5 mg/3 mL 2.5 mg inhalation Q4H PRN Wheezing 02/19/19 12/27/24 History (0.083 %) solution for nebulization glucosamine 375 [id number] 1 tab PO BID 08/01/20 12/27/24 History no1 500 mg-C 15 mg-donald 0.5 mg tablet dabigatran etexilate 150 mg 150 mg PO BID #14 caps 04/17/22 12/27/24 Rx capsule (Pradaxa) pen needle, diabetic 31 gauge x #500 ea 11/07/23 12/07/24 Rx 5/16" (Clickfine Pen Needle) famotidine 20 mg tablet (Pepcid) 20 mg PO BID 11/10/23 12/27/24 History furosemide 40 mg tablet (Lasix) 40 mg PO BID PRN swelling 11/10/23 12/27/24 History diltiazem HCl 360 mg capsule,24 360 mg PO DAILY 03/23/24 12/27/24 History hr,extended release gabapentin 600 mg tablet 600 mg PO TID #270 tabs 08/01/24 12/27/24 Rx blood-glucose sensor (Dexcom G6 12/07/24 12/07/24 History Sensor device) insulin lispro 100 unit/mL See Rx Instructions .Route .COMPLEX 12/07/24 12/27/24 History subcutaneous pen (Humalog KwikPen (U-100) Insulin) albuterol sulfate 90 mcg/actuation 2 inh inhalation Q4H PRN Wheezing 12/17/24 12/27/24 History aerosol inhaler insulin glargine 100 unit/mL (3 50 unit subcut BID 12/17/24 12/27/24 History mL) subcutaneous pen (Lantus Solostar U-100 Insulin) ipratropium 20 mcg-albuterol 100 1 puff inhalation QID 12/17/24 12/27/24 History mcg/actuation mist for inhalation (Combivent Respimat) silver sulfadiazine 1 % topical 1 applic topical DAILY 12/17/24 12/27/24 History cream potassium chloride 20 mEq 20 meq PO BID PRN Take when you 12/20/24 12/27/24 Rx tablet,extended release take Lasix #30 tabs Lactobacillus acidophilus and 1 cap PO DAILY 12/27/24 12/27/24 History rhamnosus 15 billion cell capsule (Probiotic) ascorbic acid (vitamin C) 100 mg 100 mg PO DAILY 12/27/24 12/27/24 History tablet (Vitamin C) magnesium glycinate 100 mg (as 100 mg PO DAILY 12/27/24 12/27/24 History glycinate) tablet tirzepatide 10 mg/0.5 mL 10 mg subcut WK 12/27/24 12/27/24 History subcutaneous pen injector zinc gluconate 50 mg tablet 100 mg PO DAILY 12/27/24 12/27/24 History Allergies Allergy/AdvReac Type Severity Reaction Status Date / Time nickel Allergy Mild Redness of Verified 12/27/24 00:25 Skin GIN Inhibitors Allergy Unknown Unknown Verified 12/27/24 00:25 cat dander Allergy Unknown Unknown Verified 12/27/24 00:25 cockroach Allergy Unknown Unknown Verified 12/27/24 00:25 house dust Allergy Unknown Unknown Verified 12/27/24 00:25 pioglitazone Allergy Unknown Unknown Verified 12/27/24 00:25 tree and shrub pollen Allergy Unknown Unknown Verified 12/27/24 00:25 codeine AdvReac Mild Nausea Verified 12/27/24 00:25 hydrocodone AdvReac Mild Nausea Verified 12/27/24 00:25 meperidine AdvReac Mild Nausea Verified 12/27/24 00:25 morphine AdvReac Mild Nausea Verified 12/27/24 00:25 Past Med/Surg History Problem List (Updated 12/27/24 @ 00:09 by Di Pa PA-C) Abdominal wall hernia (Acute) SBO (small bowel obstruction) (Acute) Uncontrolled type 2 diabetes mellitus with hyperglycemia, with long-term current use of insulin Neuropathy, Mild Nephropathy, Macrovascular complications Diabetes mellitus type 2, controlled, with complications Neuropathy, Mild Nephropathy, Macrovascular History of colon polyps Genetic defect Obesity, morbid, BMI 50 or higher (Chronic) Renal lesion Chronic anticoagulation (Chronic) Ambulatory dysfunction (Chronic) Altered mental status (Chronic) HTN (hypertension) (Chronic) HLD (hyperlipidemia) (Chronic) COPD (chronic obstructive pulmonary disease) (Chronic) NAVI (obstructive sleep apnea) (Chronic) cpap Diabetic neuropathy (Chronic) GERD (gastroesophageal reflux disease) (Chronic) Depression (Chronic) Hypothyroid (Chronic) Gout (Chronic) Atrial fibrillation (Chronic) Medical History Elevated troponin Loss of protective sensation of skin of foot Rectal bleed Lower gastrointestinal hemorrhage Nausea and vomiting after administration of anesthetic agent Hx of ovarian cancer 2019- surgical intervention, no chemo or radiation-[facility] [place] Liver lesion Liver cell injury Ovarian cancer on right 28 lb R adnexal mass removed 07/22/19 Edema Closed head injury Syncope Leg wound, right Atrial fibrillation with rapid ventricular response (07/14/14) - follows w/ dr norris last visit 1 yr ago- takes pradaxa Surgical History S/P appendectomy during hysterectomy S/P hysterectomy Status post colonoscopy with polypectomy History of cholecystectomy History of hernia repair during hysterectomy Family History Father Myocardial infarction Coronary heart disease Diabetes Mother Complication of surgery Diabetes Sister Diabetes Sister Diabetes Brother Diabetes "Pre-diabetic" Sister Diabetes Sister Gestational diabetes Grandmother (Paternal) Diabetes Grandmother (Maternal) Diabetes Social History Smoking Status: Former smoker Cigarettes Per Day: 0; Second Hand Exposure: No; Do You Dip or Chew Tobacco: No; Hx Alcohol Use: No Hx Substance Use: No Preferred Language: Eritrean Communication Ability: Effective Manager Branch Required: No Beliefs That Will Affect Care: None marital status: / Current Living Situation: Alone and Family Current Living Situation Comment: Lives at home with daugther, son in law and grandchildren Feels Safe at Home: Yes Assistive Devices: Walker Review of Systems A total of 10 systems reviewed and were otherwise negative Physical Exam Vital Signs Vital Signs - 24 hr 12/26/24 23:56 12/27/24 00:44 12/27/24 01:13 Temperature 36.2 C L Temperature Source Temporal Artery Scan Pulse Rate 68 76 71 Respiratory Rate 16 Respiratory Effort / Characteristics Non-Labored Spontaneous Respiratory Depth Normal Respiratory Pattern Regular Blood Pressure 147/70 H Blood Pressure Mean 95 Blood Pressure Position Sitting Pulse Oximetry 95 95 Oxygen Delivery Method Room Air Room Air Sepsis Recent Fever Within 48 Hours No Sepsis New/Unexplained Change in Mental Status N/A Sepsis Action Taken by Nursing No Action Required VITALS: Vitals are noted on the nurse's note and reviewed by myself. Vital signs stable. GENERAL: Pleasant female with an elevated BMI, in no acute distress, nondiaphoretic, well-developed well-nourished. SKIN: Capillary reflex less than 2 seconds. HEENT: Normocephalic. PERRLA. EOMI. Nares patent. Mucous membranes moist. Neck is supple without nuchal rigidity. HEART: Regular rate and rhythm LUNGS: Clear to auscultation bilaterally without wheezes, rales or rhonchi. No retractions or accessory muscle use. ABDOMEN: Positive bowel sounds x 4. Normal tympanic percussion. Soft, tender to palpation lower abdomen with hernia present, without masses or organomegaly. Han sign negative. No guarding or rebound tenderness. no CVA tenderness MUSCULOSKELETAL: No gross musculoskeletal defects. NEURO: Patient was alert and oriented to person place and time. No focal neurological deficits. Course Administered Medications Discontinued Medications Acetaminophen (Ofirmev) 1,000 mg in 100 mls @ 400 mls/hr IV NOW STA Stop: 12/27/24 00:19 Last Admin: 12/27/24 00:44 Dose: 400 mls/hr Documented By: Sodium Chloride (Nss) 500 mls @ 999 mls/hr IV .Q31M ONE Stop: 12/27/24 00:35 Last Admin: 12/27/24 00:45 Dose: 999 mls/hr Documented By: Ioversol (Optiray 320 100ml) 100 ml IV ONCE ONE Stop: 12/27/24 00:43 Last Admin: 12/27/24 00:42 Dose: 93 ml Documented By: RAYMOND Ondansetron HCl (Ondansetron Inj 2 Mg/Ml 2 Ml Vial) 4 mg IV NOW STA Stop: 12/27/24 00:06 Last Admin: 12/27/24 00:23 Dose: 4 mg Documented By: Medical Decision Making Medical Records Attestation: I reviewed the patient's medical records. Home Medications Current Medication List: was personally reviewed by me Laboratory Data Attestation: I reviewed the patient's lab results. 12/27/24 00:10 12/27/24 00:10 Lab Results 12/27/24 12/27/24 12/27/24 Range/Units 00:10 00:15 01:21 WBC 14.11 H (4.8-10.8) K/ul RBC 5.06 (4.20-5.40) M/uL Hgb 15.4 (12.0-16.0) g/dl POC Hgb 16.3 H (12.0-16.0) g/dl Hct 46.3 (37.0-47.0) % POC Hct 48 H (37-47) % MCV 91.5 (80.0-100.0) fL MCH 30.4 (25.0-34.0) pg MCHC 33.3 (32.0-36.0) g/dL RDW Std Deviation 52.9 H (36.4-46.3) fL RDW Coeff of Faraz 15.9 H (11.5-14.5) % Plt Count 464 H (130-400) K/uL MPV 10.9 (9.4-12.4) fL Immature Gran % (Auto) 0.4 % Neut % (Auto) 74.1 % Lymph % (Auto) 17.6 % [place] % (Auto) 6.0 % Eos % (Auto) 1.3 % Baso % (Auto) 0.6 % Neut # (Auto) 10.46 H (1.40-6.50) K/uL Lymph # (Auto) 2.48 (1.20-3.40) K/uL [place] # (Auto) 0.84 H (0.11-0.59) K/uL Eos # (Auto) 0.19 (0.00-0.50) K/uL Baso # (Auto) 0.08 (0.00-0.20) K/uL Immature Gran # (Auto) 0.06 (0.01-0.20) K/uL POC Sodium 137 (135-144) mmol/L Sodium 137 (136-145) mmol/L POC Potassium 3.5 (3.3-5.0) mmol/L Potassium 3.6 (3.5-5.1) mmol/L POC Chloride 96 L (101-112) mmol/L Chloride 97 L (98-107) mmol/L Carbon Dioxide 32 (21-32) mmol/L POC Total CO2 32 H (24-31) mmol/L Anion Gap 8 (3-11) POC Anion Gap 13.0 L (16-25) mmol/L POC BUN 11 (7-18) mg/dl BUN 12 (6-23) mg/dl Creatinine 1.06 (0.6-1.2) mg/dl POC Creatinine 1.2 (0.6-1.3) mg/dl Est Cr Clr Drug Dosing 68.6 ml/min eGFR 56.87 BUN/Creatinine Ratio 11.3 (10-20) Glucose 142 H (70-99(Fasting)) mg/dl POC Glucose (other) 142 H (70-99) mg/dl Lactate 1.6 (0.4-2.0) mmol/L Calcium 9.6 (8.6-10.3) mg/dl POC Ioniz Calcium Lucio 1.11 L (1.12-1.32) mmol/l Total Bilirubin 0.8 (0.2-1.0) mg/dl AST 29 (13-39) U/L ALT 22 (7-52) U/L Alkaline Phosphatase 132 H (34-104) U/L Troponin I High Sens 10.2 (0-14) pg/ml Total Protein 7.0 (6.0-8.3) gm/dl Albumin 3.9 (3.4-5.0) gm/dl Globulin 3.1 (2.5-4.0) gm/dl Albumin/Globulin Ratio 1.3 (0.9-2) Lipase 26 (11-82) U/L Imaging Data Attestation: I personally reviewed and interpreted this imaging study as follows: Radiologist's Impression: Abdomen/Pelvis CT 12/27/24 00:05 EXAM: CT abd pelvis IV con only CLINICAL HISTORY: hx SBO, pain, no BM TECHNIQUE: Multiple contiguous axial images were obtained from the level of diaphragm to the pubis symphysis. This study was acquired after the IV administration of iodinated contrast material, given the patient's indications for the examination. If IV contrast material had not been administered, the likelihood of detecting abnormalities relevant to the patient's condition would have been substantially decreased. Coronal and sagittal reformatted images were generated and reviewed to improve anatomic localization and optimize lesion detection. CT scan was performed according to ALARA (as low as reasonably achievable). 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 ABDOMEN/PELVIS: Lax anterior abdominal wall seen. Defect in right paramedian anterior abdominal wall at epigastric region with herniation of large bowel loop(mid transverse colon segment). The defect measures about 2.5x3.3cm(TRxCC). Another large defect seen in right paramedian anterior upper abdominal wall below the upper defect, measuring 6x5.3cm(TRxCC) with herniation of small bowell loops and its mesentery. The herniated bowel loops are distended with interbowel fluid within the heniated sac. Secondarily there is dilatation od rest of small bowel loops with multiple sir fluid levels, maximum diameter of dilated loops- 4.5cm. Multiple small diverticuli of 2mm seen in sigmoid and descending colon. No inflammatory changes. The liver is normal in size and attenuation. No focal liver lesions are seen. There is no intra or extrahepatic biliary ductal dilatation. Hepatic vasculature is patent. Post cholecystectomy status. The spleen, pancreas, and adrenal glands are unremarkable. The kidneys are normal in size and attenuation. There is no hydronephrosis or perinephric fat stranding. No renal calculi or renal masses are identified. Few simple cortical cysts seen in bilateral kidneys of average size 8-12mm. The ureters are normal in caliber and no ureteral calculi are seen. The bladder is normal in contour. The appendix is not visualized . Post hysterectomy status. No adenopathy or fluid collections are seen. The aorta is normal in caliber. No aggressive appearing osseous lesions are identified. IMPRESSION: 1. Right paramedian anterior upper abdominal wall hernia with herniated small bowel loops , secondarily complicated by acute small bowel obstruction. 2. An uncomplicated right paramedian anterior upper abdominal wall epigastric hernia with herniation of large bowel loop(mid transverse colon segment). 3. Uncomplicated sigmoid and descending colon diverticulosis. 4. Few bilateral renal simple cortical cysts 5. No interval changes. No pneumoperitoneum. The obstruction is still persistent. Electronically signed by Isra Damico 12-27-2024 01:31 AM MDM Narrative Prior records/ancillary studies reviewed. Triage Nursing notes reviewed. Additional history obtained from family. The patient's history was concerning for abdominal pain. Differential diagnosis: Etiologies such as appendicitis, diverticulitis, PUD, biliary pathology, UTI, pancreatitis, obstruction, mesenteric ischemia, aortic pathology, infections, inflammatory bowel disease, renal colic, as well as others were entertained. Physical examination findings: As above. ER treatment provided: An order was placed for continuous cardiac monitoring. The monitor shows a rate of 60-100 with a sinus rhythm per my Independent interpretation. Tylenol, Zofran, IV fluids NG tube placed per medicine On reassessment the patient felt better. Diagnostics interpreted by me: ECG: Ordered for upper abdominal pain EKG: Irregularly irregular left anterior fascicular block, ventricular rate 81. Impression A-fib left anterior fascicular block similar to prior independently interpreted by myself The labs Independently Interpreted by myself revealed leukocytosis most likely related to marginalization from vomiting Hyperglycemia without DKA, negative troponin Negative lactic Imaging studies: Imaging was reviewed and read by radiology Consultation: A consultation was placed with the medicine. The case was discussed and diagnostics were reviewed. The patient was evaluated in the ER for further treatment. Exam and history seem consistent with recurrent small bowel obstruction. Patient was not actively vomiting so no NG tube was placed immediately upon initial evaluation. Medicine did request this and this was placed. Medicine was consulted case discussed. Patient will be evaluated by the hospitalist. By the evaluation outlined above emergent etiologies such as appendicitis, diverticulitis, PUD, biliary pathology, UTI, pancreatitis, mesenteric ischemia, aortic pathology, infections, inflammatory bowel disease, renal colic, as well as others were deemed relatively unlikely. The pt informed about the findings as listed above. All questions were answered and pleased with the treatment. The chart was completed utilizing [employer] Speech voice recognition software. Grammatical errors, random word insertions, pronoun errors, and incomplete sentences are an occassional consequence of this system due to software limitations, ambient noise, and hardware issues. Any formal questions or concerns about the content, text, or information contained within the body of this dictation should be directly addressed to the physician prosthetics assistant for clarification. Impression & Plan SBO (small bowel obstruction) Discharge Plan Visit Data Chief Complaint: Constipation Stated Complaint: SMALL BOWEL OBSTRUCTION,LARGE HERNIA ED Provider: Margarita Lopez ED Midlevel Provider: Di Pa Discharge Problem: SBO (small bowel obstruction) Patient Disposition: Admitted As Inpatient Condition: Good Forms Stand Alone Forms: My [employer] Prescriptions Prescriptions: No Action (DME) pen needle, diabetic [Clickfine Pen Needle] 31 gauge x 5/16" needle See Rx Instructions .Route Qty: 500 3RF Rx Instructions: Use 5 per day gabapentin 600 mg tablet 600 mg PO TID Qty: 270 1RF [id number] mg tablet 1 tab PO BID diltiazem HCl 360 mg capsule,extended release 24 hr 360 mg PO DAILY insulin lispro [Humalog KwikPen Insulin] 100 unit/mL insulin pen See Rx Instructions .ROUTE .COMPLEX Rx Instructions: PER [facility]: 35 UNITS QAM PLUS SLIDING SCALE, 15 UNITS @ 1400 PLUS SLIDING SCALE, AND 30 UNITS Q EVENING PLUS SLIDING SCALE. PER D/C INSTRUCTIONS 12/20/24: 15 UNITS WITH MEALS. (DME) Dexcom G6 Sensor Device See Rx Instructions .ROUTE Rx Instructions: As directed atorvastatin 40 mg Tablet 40 mg PO HS allopurinol 100 mg Tablet 100 mg PO BID aspirin [Tiara Low Dose Aspirin] 81 mg Tablet,Delayed Release (Dr/Ec) 81 mg PO QAM gemfibrozil 600 mg Tablet 600 mg PO BID mometasone 50 mcg/actuation [place],Non-Aerosol 1 - 2 spray INTRANASAL QAM levothyroxine 112 mcg Tablet 112 mcg PO QAM metoprolol tartrate 25 mg Tablet 25 mg PO BID albuterol sulfate 2.5 mg /3 mL (0.083 %) Solution For Nebulization 2.5 mg INHALATION Q4H PRN (Reason: Wheezing) diclofenac sodium 1 % gel 2 g topical QID dabigatran etexilate [Pradaxa] 150 mg Capsule 150 mg PO BID Qty: 14 0RF famotidine [Pepcid] 20 mg tablet 20 mg PO BID furosemide [Lasix] 40 mg tablet 40 mg PO BID PRN (Reason: swelling) silver sulfadiazine 1 % cream 1 applic TOPICAL DAILY Rx Instructions: RIGHT LOWER LEG WOUND; COVER WITH GAUZE albuterol sulfate 90 mcg/actuation Hfa Aerosol Inhaler 2 inh INHALATION Q4H PRN (Reason: Wheezing) Combivent Respimat 20-100 mcg/actuation mist 1 puff INHALATION QID insulin glargine [Lantus Solostar U-100 Insulin] 100 unit/mL (3 mL) insulin pen 50 unit SUBCUT BID potassium chloride 20 mEq tablet extended release 20 meq PO BID PRN (Reason: Take when you take Lasix ) Qty: 30 0RF Vitamin C 100 mg Tablet 100 mg PO DAILY zinc gluconate 50 mg Tablet 100 mg PO DAILY magnesium glycinate 100 mg Tablet 100 mg PO DAILY Probiotic 15 billion cell capsule 1 cap PO DAILY tirzepatide 10 mg/0.5 mL pen injector 10 mg subcut WK Rx Instructions: MONDAYS Referrals Referrals: Mohsen Vazquez MD [Primary Care Provider] -
[2024-12-27] MEDS: ONDANSETRON INJ 2 MG/ML 2 ML VIAL IV STA (00:23)
[2024-12-27 00:28] LABS: iSTAT Creatinine 1.2 mg/dl (0.6-1.3); iSTAT Hemoglobin 16.3 g/dl (12.0-16.0); iSTAT Ionized Calcium 1.11 mmol/l (1.12-1.32); iSTAT Potassium 3.5 mmol/L (3.3-5.0)
[2024-12-27 00:34] LABS: Basophils # (auto) 0.08 K/uL (0.00-0.20); Basophils % (auto) 0.6 %; Eosinophils # (auto) 0.19 K/uL (0.00-0.50); Eosinophils % (auto) 1.3 %; Hematocrit (blood only) 46.3 % (37.0-47.0); Hemoglobin 15.4 g/dl (12.0-16.0); Immature Granulocytes # (auto) 0.06 K/uL (0.01-0.20); Immature Granulocytes % (auto) 0.4 %; Lymphocytes # (auto) 2.48 K/uL (1.20-3.40); Lymphocytes % (auto) 17.6 %; Mean Corpuscular Hemoglobin 30.4 pg (25.0-34.0); Mean Corpuscular Hgb Conc 33.3 g/dL (32.0-36.0); Mean Corpuscular Volume 91.5 fL (80.0-100.0); Mean Platelet Volume 10.9 fL (9.4-12.4); Monocytes # (auto) 0.84 K/uL (0.11-0.59); Neutrophils # (auto) 10.46 K/uL (1.40-6.50); Neutrophils % (auto) 74.1 %; Platelet Count 464 K/uL (130-400); RDW Coefficient of Variation 15.9 % (11.5-14.5); RDW Standard Deviation 52.9 fL (36.4-46.3); Red Blood Count 5.06 M/uL (4.20-5.40); White Blood Count 14.11 K/ul (4.8-10.8)
[2024-12-27] MEDS: OPTIRAY 320 100ml IV ONE (00:42)
[2024-12-27] MEDS: ACETAMINOPHEN 1,000 MG/100 ML VIAL IV STA (00:44)
[2024-12-27] MEDS: SODIUM CHLORIDE 0.9% 500 ML IV ONE (00:45)
[2024-12-27 00:49] LABS: Albumin Globulin Ratio 1.3 (0.9-2); Albumin Level 3.9 gm/dl (3.4-5.0); BUN Creatinine Ratio 11.3 (10-20); Bilirubin,Total 0.8 mg/dl (0.2-1.0); Calcium 9.6 mg/dl (8.6-10.3); Creatinine Clr Calc Pharmacy 68.6 ml/min; Globulin 3.1 gm/dl (2.5-4.0); Potassium 3.6 mmol/L (3.5-5.1)
[2024-12-27 00:56] LABS: Troponin I High Sensitivity 10.2 pg/ml (0-14)
--- NOTE | 2024-12-27 01:31 | CT Scan Report ---
EXAM: CT abd pelvis IV con only CLINICAL HISTORY: hx SBO, pain, no BM TECHNIQUE: Multiple contiguous axial images were obtained from the level of diaphragm to the pubis symphysis. This study was acquired after the IV administration of iodinated contrast material, given the patient's indications for the examination. If IV contrast material had not been administered, the likelihood of detecting abnormalities relevant to the patient's condition would have been substantially decreased. Coronal and sagittal reformatted images were generated and reviewed to improve anatomic localization and optimize lesion detection. CT scan was performed according to ALARA (as low as reasonably achievable). COMPARISON: Ct, 12/17/2024 16:50:00 FULL TIME PARAMEDIC FINDINGS: The visualized lung bases are clear. ABDOMEN/PELVIS: Lax anterior abdominal wall seen. Defect in right paramedian anterior abdominal wall at epigastric region with herniation of large bowel loop(mid transverse colon segment). The defect measures about 2.5x3.3cm(TRxCC). Another large defect seen in right paramedian anterior upper abdominal wall below the upper defect, measuring 6x5.3cm(TRxCC) with herniation of small bowell loops and its mesentery. The herniated bowel loops are distended with interbowel fluid within the heniated sac. Secondarily there is dilatation od rest of small bowel loops with multiple sir fluid levels, maximum diameter of dilated loops- 4.5cm. Multiple small diverticuli of 2mm seen in sigmoid and descending colon. No inflammatory changes. The liver is normal in size and attenuation. No focal liver lesions are seen. There is no intra or extrahepatic biliary ductal dilatation. Hepatic vasculature is patent. Post cholecystectomy status. The spleen, pancreas, and adrenal glands are unremarkable. The kidneys are normal in size and attenuation. There is no hydronephrosis or perinephric fat stranding. No renal calculi or renal masses are identified. Few simple cortical cysts seen in bilateral kidneys of average size 8-12mm. The ureters are normal in caliber and no ureteral calculi are seen. The bladder is normal in contour. The appendix is not visualized . Post hysterectomy status. No adenopathy or fluid collections are seen. The aorta is normal in caliber. No aggressive appearing osseous lesions are identified. IMPRESSION: 1. Right paramedian anterior upper abdominal wall hernia with herniated small bowel loops , secondarily complicated by acute small bowel obstruction. 2. An uncomplicated right paramedian anterior upper abdominal wall epigastric hernia with herniation of large bowel loop(mid transverse colon segment). 3. Uncomplicated sigmoid and descending colon diverticulosis. 4. Few bilateral renal simple cortical cysts 5. No interval changes. No pneumoperitoneum. The obstruction is still persistent. Electronically signed by Isra Damico 12-27-2024 01:31 AM
[2024-12-27] MEDS: SODIUM CHLORIDE 0.9% 1,000 ML IV SCH (01:50)
--- NOTE | 2024-12-27 02:50 | History & Physical Report ---
Date of Service December 27, 2024 Assessment & Plan (1) SBO (small bowel obstruction): Plan: 69-year-old female with past medical history significant for hypothyroidism, hyperlipidemia, idiopathic chronic gout of multiple sites, polycystic ovarian syndrome, type 2 diabetes, ovarian cancer in remission, COPD, obstructive sleep apnea, chronic atrial fibrillation, hypertension, morbid obesity, GERD, CKD stage III, benign paroxysmal positional vertigo, depression with anxiety presents nausea and vomiting and abdominal pain and found to have small bowel obstruction. Patient was recently in the hospital with small bowel obstruction and improved with conservative measures and was discharged. She had a follow-up appointment with PCP yesterday. After coming from PCP office patient was having lot of nausea and vomitings. Her abdominal pain was 7/10 in severity. She had small bowel movement yesterday. Stool was dark brown color. Last bowel movement prior to yesterday was on Tuesday. She is not eating or drinking much since discharge. Micturating not much. Denies any headache. No runny nose or sore throat. Vision is okay. No cough. No chest pain or shortness of breath. Hemodynamics are okay. Small bowel obstruction Recurrent NG tube placement N.p.o., IV fluids, pain control, IV antiemetics as needed Will hold Pradaxa for now Surgery consult in a.m. for further recommendations Obstructive sleep apnea On BiPAP nightly at home Currently has NG tube We will use oxygen for now and place on BiPAP when NG tube taken out Leukocytosis Follow UA Follow repeat labs Hypothyroidism On levothyroxine Diabetes Will cut back on Lantus to 25 units twice daily as patient currently n.p.o. Sliding scale Glycemic pharmacy consult Close monitor History of A-fib Continue Cardizem and metoprolol Holding Pradaxa Will monitor History of ovarian cancer S/p surgery and in remission Ventral hernia. Monitor for obstruction Gout On allopurinol Hyperlipidemia On statin and gemfibrozil GERD On famotidine Hypertension On Cardizem and Lopressor Will monitor DVT prophylaxis SCDs for now Disposition Med/telemetry Full code History of Present Illness Chief Complaint: Small bowel obstruction Primary Care Provider: Mohsen Vazquez MD 69-year-old female with past medical history significant for hypothyroidism, hyperlipidemia, idiopathic chronic gout of multiple sites, polycystic ovarian syndrome, type 2 diabetes, ovarian cancer in remission, COPD, obstructive sleep apnea, chronic atrial fibrillation, hypertension, morbid obesity, GERD, CKD stage III, benign paroxysmal positional vertigo, depression with anxiety presents nausea and vomiting and abdominal pain and found to have small bowel obstruction. Patient was recently in the hospital with small bowel obstruction and improved with conservative measures and was discharged. She had a follow-up appointment with PCP yesterday. After coming from PCP office patient was having lot of nausea and vomitings. Her abdominal pain was 7/10 in severity. She had small bowel movement yesterday. Stool was dark brown color. Last bowel movement prior to yesterday was on Tuesday. She is not eating or drinking much since discharge. Micturating not much. Denies any headache. No runny nose or sore throat. Vision is okay. No cough. No chest pain or shortness of breath. Hemodynamics are okay. Past medical history. As mentioned above. Past surgical history. Breast lesion excision left side. Dental surgery. Cholecystectomy. Bilateral debridement of skin and subcutaneous tissue.Extensive surgery for ovarian cancer in 2019 Social history. . Quit smoking 1976. Smoked for 1 year. Alcohol rarely. No drug use. Allergies Allergy/AdvReac Type Severity Reaction Status Date / Time nickel Allergy Mild Redness of Verified 12/27/24 00:25 Skin GIN Inhibitors Allergy Unknown Unknown Verified 12/27/24 00:25 cat dander Allergy Unknown Unknown Verified 12/27/24 00:25 cockroach Allergy Unknown Unknown Verified 12/27/24 00:25 house dust Allergy Unknown Unknown Verified 12/27/24 00:25 pioglitazone Allergy Unknown Unknown Verified 12/27/24 00:25 tree and shrub pollen Allergy Unknown Unknown Verified 12/27/24 00:25 codeine AdvReac Mild Nausea Verified 12/27/24 00:25 hydrocodone AdvReac Mild Nausea Verified 12/27/24 00:25 meperidine AdvReac Mild Nausea Verified 12/27/24 00:25 morphine AdvReac Mild Nausea Verified 12/27/24 00:25 Home Medications Medication Instructions Recorded Confirmed Type allopurinol 100 mg tablet 100 mg PO BID 09/28/18 12/27/24 History aspirin 81 mg tablet,delayed 81 mg PO QAM 09/28/18 12/27/24 History release (Tiara Low Dose Aspirin) atorvastatin 40 mg tablet 40 mg PO HS 09/28/18 12/27/24 History gemfibrozil 600 mg tablet 600 mg PO BID 09/28/18 12/27/24 History levothyroxine 112 mcg tablet 112 mcg PO QAM 09/28/18 12/27/24 History metoprolol tartrate 25 mg tablet 25 mg PO BID 09/28/18 12/27/24 History mometasone 50 mcg/actuation nasal 1 - 2 spray intranasal QAM 09/28/18 12/27/24 History spray diclofenac sodium 1 % topical gel 2 g topical QID 12/09/18 12/27/24 History albuterol sulfate 2.5 mg/3 mL 2.5 mg inhalation Q4H PRN Wheezing 02/19/19 12/27/24 History (0.083 %) solution for nebulization glucosamine 375 [id number] 1 tab PO BID 08/01/20 12/27/24 History no1 500 mg-C 15 mg-donald 0.5 mg tablet dabigatran etexilate 150 mg 150 mg PO BID #14 caps 04/17/22 12/27/24 Rx capsule (Pradaxa) pen needle, diabetic 31 gauge x #500 ea 11/07/23 12/07/24 Rx 5/16" (Clickfine Pen Needle) famotidine 20 mg tablet (Pepcid) 20 mg PO BID 11/10/23 12/27/24 History furosemide 40 mg tablet (Lasix) 40 mg PO BID PRN swelling 11/10/23 12/27/24 History diltiazem HCl 360 mg capsule,24 360 mg PO DAILY 03/23/24 12/27/24 History hr,extended release gabapentin 600 mg tablet 600 mg PO TID #270 tabs 08/01/24 12/27/24 Rx blood-glucose sensor (Dexcom G6 12/07/24 12/07/24 History Sensor device) insulin lispro 100 unit/mL See Rx Instructions .Route .COMPLEX 12/07/24 12/27/24 History subcutaneous pen (Humalog KwikPen (U-100) Insulin) albuterol sulfate 90 mcg/actuation 2 inh inhalation Q4H PRN Wheezing 12/17/24 12/27/24 History aerosol inhaler insulin glargine 100 unit/mL (3 50 unit subcut BID 12/17/24 12/27/24 History mL) subcutaneous pen (Lantus Solostar U-100 Insulin) ipratropium 20 mcg-albuterol 100 1 puff inhalation QID 12/17/24 12/27/24 History mcg/actuation mist for inhalation (Combivent Respimat) silver sulfadiazine 1 % topical 1 applic topical DAILY 12/17/24 12/27/24 History cream potassium chloride 20 mEq 20 meq PO BID PRN Take when you 12/20/24 12/27/24 Rx tablet,extended release take Lasix #30 tabs Lactobacillus acidophilus and 1 cap PO DAILY 12/27/24 12/27/24 History rhamnosus 15 billion cell capsule (Probiotic) ascorbic acid (vitamin C) 100 mg 100 mg PO DAILY 12/27/24 12/27/24 History tablet (Vitamin C) magnesium glycinate 100 mg (as 100 mg PO DAILY 12/27/24 12/27/24 History glycinate) tablet tirzepatide 10 mg/0.5 mL 10 mg subcut WK 12/27/24 12/27/24 History subcutaneous pen injector zinc gluconate 50 mg tablet 100 mg PO DAILY 12/27/24 12/27/24 History Past Med/Surg History Problem List (Updated 12/27/24 @ 00:09 by MONIQUE AlanisC) Abdominal wall hernia (Acute) SBO (small bowel obstruction) (Acute) Uncontrolled type 2 diabetes mellitus with hyperglycemia, with long-term current use of insulin Neuropathy, Mild Nephropathy, Macrovascular complications Diabetes mellitus type 2, controlled, with complications Neuropathy, Mild Nephropathy, Macrovascular History of colon polyps Genetic defect Obesity, morbid, BMI 50 or higher (Chronic) Renal lesion Chronic anticoagulation (Chronic) Ambulatory dysfunction (Chronic) Altered mental status (Chronic) HTN (hypertension) (Chronic) HLD (hyperlipidemia) (Chronic) COPD (chronic obstructive pulmonary disease) (Chronic) NAVI (obstructive sleep apnea) (Chronic) cpap Diabetic neuropathy (Chronic) GERD (gastroesophageal reflux disease) (Chronic) Depression (Chronic) Hypothyroid (Chronic) Gout (Chronic) Atrial fibrillation (Chronic) Medical History Elevated troponin Loss of protective sensation of skin of foot Rectal bleed Lower gastrointestinal hemorrhage Nausea and vomiting after administration of anesthetic agent Hx of ovarian cancer 2019- surgical intervention, no chemo or radiation-[facility] [place] Liver lesion Liver cell injury Ovarian cancer on right 28 lb R adnexal mass removed 07/22/19 Edema Closed head injury Syncope Leg wound, right Atrial fibrillation with rapid ventricular response (07/14/14) - follows w/ dr norris last visit 1 yr ago- takes pradaxa Surgical History S/P appendectomy during hysterectomy S/P hysterectomy Status post colonoscopy with polypectomy History of cholecystectomy History of hernia repair during hysterectomy Family History Father Myocardial infarction Coronary heart disease Diabetes Mother Complication of surgery Diabetes Sister Diabetes Sister Diabetes Brother Diabetes "Pre-diabetic" Sister Diabetes Sister Gestational diabetes Grandmother (Paternal) Diabetes Grandmother (Maternal) Diabetes Social History Smoking Status: Never smoker Cigarettes Per Day: 0; Second Hand Exposure: No; Do You Dip or Chew Tobacco: No; Hx Alcohol Use: Yes Hx Substance Use: No Preferred Language: Latvian Communication Ability: Effective Billet Driller Required: No Beliefs That Will Affect Care: None marital status: / Current Living Situation: Alone Current Living Situation Comment: Lives at home with daugther, son in law and grandchildren Other Information That Helps Us Care for You: No Feels Safe at Home: Yes Safety Concerns: Feels Safe At This Time Assistive Devices: Walker Review of Systems Review of Systems: All systems reviewed & are unremarkable except as noted in HPI & below Physical Exam Physical Exam: General-Noty in distress Head- atraumatic Eyes- PERRL. ENT- oropharynx clear Neck- supple, no JVD. Lungs- clear to auscultation no wheezing or crackles. Heart- regular rhythm; no murmur, no gallop. Abdomen- sluggish bowel sounds, soft, mild tenderness in left side of abdomen , no distension. Extremities- no pretibial edema, no erythema seen Neuro- alert, oriented PERRL, no facial palsy; no dysarthria; moves extremities Results & Data Results & Data Vital Signs (Past 12 Hours) Vital Signs Temp Pulse Resp BP Pulse Ox O2 Del Method 12/27/24 01:13 71 95 Room Air 12/27/24 00:44 76 12/26/24 23:56 36.2 C L 68 16 147/70 H 95 Room Air Diagnostic Findings Laboratory Results WBC 14.11 K/ul (4.8-10.8) H 12/27/24 00:10 RBC 5.06 M/uL (4.20-5.40) 12/27/24 00:10 Hgb 15.4 g/dl (12.0-16.0) 12/27/24 00:10 POC Hgb 16.3 g/dl (12.0-16.0) H 12/27/24 00:15 Hct 46.3 % (37.0-47.0) 12/27/24 00:10 POC Hct 48 % (37-47) H 12/27/24 00:15 MCV 91.5 fL (80.0-100.0) 12/27/24 00:10 MCH 30.4 pg (25.0-34.0) 12/27/24 00:10 MCHC 33.3 g/dL (32.0-36.0) 12/27/24 00:10 RDW Std Deviation 52.9 fL (36.4-46.3) H 12/27/24 00:10 RDW Coeff of Faraz 15.9 % (11.5-14.5) H 12/27/24 00:10 Plt Count 464 K/uL (130-400) H 12/27/24 00:10 MPV 10.9 fL (9.4-12.4) 12/27/24 00:10 Immature Gran % (Auto) 0.4 % 12/27/24 00:10 Neut % (Auto) 74.1 % 12/27/24 00:10 Lymph % (Auto) 17.6 % 12/27/24 00:10 [place] % (Auto) 6.0 % 12/27/24 00:10 Eos % (Auto) 1.3 % 12/27/24 00:10 Baso % (Auto) 0.6 % 12/27/24 00:10 Neut # (Auto) 10.46 K/uL (1.40-6.50) H 12/27/24 00:10 Lymph # (Auto) 2.48 K/uL (1.20-3.40) 12/27/24 00:10 [place] # (Auto) 0.84 K/uL (0.11-0.59) H 12/27/24 00:10 Eos # (Auto) 0.19 K/uL (0.00-0.50) 12/27/24 00:10 Baso # (Auto) 0.08 K/uL (0.00-0.20) 12/27/24 00:10 Immature Gran # (Auto) 0.06 K/uL (0.01-0.20) 12/27/24 00:10 POC Sodium 137 mmol/L (135-144) 12/27/24 00:15 Sodium 137 mmol/L (136-145) 12/27/24 00:10 POC Potassium 3.5 mmol/L (3.3-5.0) 12/27/24 00:15 Potassium 3.6 mmol/L (3.5-5.1) 12/27/24 00:10 POC Chloride 96 mmol/L (101-112) L 12/27/24 00:15 Chloride 97 mmol/L (98-107) L 12/27/24 00:10 Carbon Dioxide 32 mmol/L (21-32) 12/27/24 00:10 POC Total CO2 32 mmol/L (24-31) H 12/27/24 00:15 Anion Gap 8 (3-11) 12/27/24 00:10 POC Anion Gap 13.0 mmol/L (16-25) L 12/27/24 00:15 POC BUN 11 mg/dl (7-18) 12/27/24 00:15 BUN 12 mg/dl (6-23) 12/27/24 00:10 Creatinine 1.06 mg/dl (0.6-1.2) 12/27/24 00:10 POC Creatinine 1.2 mg/dl (0.6-1.3) 12/27/24 00:15 Est Cr Clr Drug Dosing 68.6 ml/min 12/27/24 00:10 eGFR 56.87 12/27/24 00:10 BUN/Creatinine Ratio 11.3 (10-20) 12/27/24 00:10 Glucose 142 mg/dl (70-99(Fasting)) H 12/27/24 00:10 POC Glucose (other) 142 mg/dl (70-99) H 12/27/24 00:15 Lactate 1.6 mmol/L (0.4-2.0) 12/27/24 01:21 Calcium 9.6 mg/dl (8.6-10.3) 12/27/24 00:10 POC Ioniz Calcium Lucio 1.11 mmol/l (1.12-1.32) L 12/27/24 00:15 Total Bilirubin 0.8 mg/dl (0.2-1.0) 12/27/24 00:10 AST 29 U/L (13-39) 12/27/24 00:10 ALT 22 U/L (7-52) 12/27/24 00:10 Alkaline Phosphatase 132 U/L (34-104) H 12/27/24 00:10 Troponin I High Sens 10.2 pg/ml (0-14) 12/27/24 00:10 Total Protein 7.0 gm/dl (6.0-8.3) 12/27/24 00:10 Albumin 3.9 gm/dl (3.4-5.0) 12/27/24 00:10 Globulin 3.1 gm/dl (2.5-4.0) 12/27/24 00:10 Albumin/Globulin Ratio 1.3 (0.9-2) 12/27/24 00:10 Lipase 26 U/L (11-82) 12/27/24 00:10 Impressions Abdomen/Pelvis CT 12/27/24 00:05 EXAM: CT abd pelvis IV con only CLINICAL HISTORY: hx SBO, pain, no BM TECHNIQUE: Multiple contiguous axial images were obtained from the level of diaphragm to the pubis symphysis. This study was acquired after the IV administration of iodinated contrast material, given the patient's indications for the examination. If IV contrast material had not been administered, the likelihood of detecting abnormalities relevant to the patient's condition would have been substantially decreased. Coronal and sagittal reformatted images were generated and reviewed to improve anatomic localization and optimize lesion detection. CT scan was performed according to ALARA (as low as reasonably achievable). COMPARISON: Ct, 12/17/2024 16:50:00 PLASTICS HEAT WELDER FINDINGS: The visualized lung bases are clear. ABDOMEN/PELVIS: Lax anterior abdominal wall seen. Defect in right paramedian anterior abdominal wall at epigastric region with herniation of large bowel loop(mid transverse colon segment). The defect measures about 2.5x3.3cm(TRxCC). Another large defect seen in right paramedian anterior upper abdominal wall below the upper defect, measuring 6x5.3cm(TRxCC) with herniation of small bowell loops and its mesentery. The herniated bowel loops are distended with interbowel fluid within the heniated sac. Secondarily there is dilatation od rest of small bowel loops with multiple sir fluid levels, maximum diameter of dilated loops- 4.5cm. Multiple small diverticuli of 2mm seen in sigmoid and descending colon. No inflammatory changes. The liver is normal in size and attenuation. No focal liver lesions are seen. There is no intra or extrahepatic biliary ductal dilatation. Hepatic vasculature is patent. Post cholecystectomy status. The spleen, pancreas, and adrenal glands are unremarkable. The kidneys are normal in size and attenuation. There is no hydronephrosis or perinephric fat stranding. No renal calculi or renal masses are identified. Few simple cortical cysts seen in bilateral kidneys of average size 8-12mm. The ureters are normal in caliber and no ureteral calculi are seen. The bladder is normal in contour. The appendix is not visualized . Post hysterectomy status. No adenopathy or fluid collections are seen. The aorta is normal in caliber. No aggressive appearing osseous lesions are identified. IMPRESSION: 1. Right paramedian anterior upper abdominal wall hernia with herniated small bowel loops , secondarily complicated by acute small bowel obstruction. 2. An uncomplicated right paramedian anterior upper abdominal wall epigastric hernia with herniation of large bowel loop(mid transverse colon segment). 3. Uncomplicated sigmoid and descending colon diverticulosis. 4. Few bilateral renal simple cortical cysts 5. No interval changes. No pneumoperitoneum. The obstruction is still persistent. Electronically signed by Isra Damico 12-27-2024 01:31 AM ECG Additional Comments: ECG. Atrial fibrillation rate of 81. Left intrafascicular block. Nonspecific T wave abnormality. Code Status & VTE Plan VTE Prophylaxis Plan VTE Prophylaxis will be ordered: Yes
--- NOTE | 2024-12-27 02:56 | XRay Report ---
EXAM: XR KUB/Abdomen 1 view CLINICAL HISTORY: post NG tueb placement TECHNIQUE: X-ray image of the upper abdomen were obtained in AP view. COMPARISON: No prior studies available for comparison. FINDINGS: NG tube noted with its distal end at the left upper abdomen, corresponding to the gastric region. IMPRESSION: NG tube noted at gastric region. Electronically signed by Tucker Navarro 12-27-2024 02:55 AM
[2024-12-27] MEDS ORDERED: ALBUTEROL HFA 8 GM INHALER INH PRN (03:27)
[2024-12-27] MEDS ORDERED: GLUCOSE 40% GEL 15 GM TUBE PO PRN (03:27)
[2024-12-27] MEDS ORDERED: GLUCOSE 10 TAB/TUBE PO PRN (03:27)
[2024-12-27] MEDS ORDERED: GLUCAGON FOR INJ 1 MG VIAL SQ PRN (03:27)
[2024-12-27] MEDS ORDERED: DEXTROSE 50% 50 ML SYRINGE IV PRN (03:27)
[2024-12-27] MEDS ORDERED: ALBUTEROL 0.083% NEBU SOLN 3 ML VIAL INH PRN (03:27)
[2024-12-27] MEDS ORDERED: CARBOHYDRATES FOR HYPOGLYCEMIA PO PRN (03:27)
[2024-12-27] MEDS ORDERED: ONDANSETRON INJ 2 MG/ML 2 ML VIAL IV PRN (03:27)
[2024-12-27] MEDS ORDERED: NITROGLYCERIN SL 0.4 MG/TAB TAB SL PRN (03:27)
[2024-12-27] MEDS ORDERED: PHARMACY GLYCEMIC MGMT CONSULT PRN (03:27)
[2024-12-27 05:28] LABS: Appearance Urine Cloudy (Clear); Bacteria Urine Automated None Seen (None Seen); Bilirubin Urine 1+ (Negative); Blood Urine Negative (Negative); Color Urine Dark Yellow; Glucose Urine UA Negative (Negative); Ketones Urine Trace (Negative); Leukocyte Esterase Urine Negative (Negative); Nitrite Urine Negative (Negative); Protein Urine 1+ (Negative); Specific Gravity Urine > 1.045 (1.000-1.030); Urobilinogen Urine Negative (Negative)
[2024-12-27 05:57] LABS: RBC Urine Automated 0-2 /hpf (0-2); WBC Urine Automated 21-50 /hpf (0-5)
[2024-12-27] MEDS: LEVOTHYROXINE SODIUM 112 MCG TABLET PO SCH (06:29)
[2024-12-27] MEDS: INSULIN ASPART PER UNIT CHARGE SC SCH (06:32)
--- NOTE | 2024-12-27 06:41 | Surgery Consultation ---
Date of Consultation December 27, 2024 Assessment & Plan (1) SBO (small bowel obstruction): Patient is a 69-year-old female with extensive past medical and abdominal surgical history who presented to the emergency department with acute onset of abdominal pain, nausea and vomiting that started last evening. The patient was recently seen on 12/17/24 for an SBO, she was treated conservatively, and was discharged home on 12/20/24. Upon workup again, she was found to have CT findings concerning of SBO within a large ventral hernia. The patient was seen and evaluated early this morning at bedside. She is resting comfortably, VSS, and is nontoxic appearing. An NGT was placed and she states she is feeling significa ntly better. On exam she is nontender throughout, however is noted to have a large right-sided ventral hernia. For now recommend the following: -Keep NPO, NGT to remain in place to suction, IV hydration. Monitor bowel function -The patient does not require emergent surgical intervention and will manage conservatively for now. However, given her multiple comorbidities, as well as her large hernia with loss off domain to her abdomen, if she would require surgery it would be likely she would need to be transferred to a tertiary care center. -Medical management of chronic conditions per primary team, surgery will continue to follow History of Present Illness Reason for Consultation: SBO History of Present Illness The patient is a 69-year-old female who presented to the emergency department late last evening with complaints of abdominal pain, nausea and vomiting. To note, the patient was recently just seen at our facility for SBO last week, she was treated conservatively and discharged home. The patient states since discharge she has not been eating much. She states that her last bowel movement was yesterday, however was small and dark, almost black, in color. The patient states that her symptoms started suddenly last evening and she was concerned for recurrent SBO which prompted her to come to the emergency department for further evaluation. Upon workup in the ED she underwent CT imaging with findings consistent with SBO secondary to large ventral hernia. The patient does have an extensive past medical and surgical history which includes ovarian cancer s/p total abdominal hysterectomy, bilateral esophageal for ectomy, omentectomy, and appendectomy. She also has afib and is on Pradaxa. The patient was seen and evaluated in the emergency department early this morning. NGT has been placed and placement was confirmed with XR. Patient with stable vitals and is nontoxic appearing. She states she is feeling significantly better now that the NGT has been placed and she currently has no abdominal pain on exam. She otherwise denies any fevers, chills, CP or SOB. Allergies Allergy/AdvReac Type Severity Reaction Status Date / Time nickel Allergy Mild Redness of Verified 12/27/24 00:25 Skin GIN Inhibitors Allergy Unknown Unknown Verified 12/27/24 00:25 cat dander Allergy Unknown Unknown Verified 12/27/24 00:25 cockroach Allergy Unknown Unknown Verified 12/27/24 00:25 house dust Allergy Unknown Unknown Verified 12/27/24 00:25 pioglitazone Allergy Unknown Unknown Verified 12/27/24 00:25 tree and shrub pollen Allergy Unknown Unknown Verified 12/27/24 00:25 codeine AdvReac Mild Nausea Verified 12/27/24 00:25 hydrocodone AdvReac Mild Nausea Verified 12/27/24 00:25 meperidine AdvReac Mild Nausea Verified 12/27/24 00:25 morphine AdvReac Mild Nausea Verified 12/27/24 00:25 Home Medications Medication Instructions Recorded Confirmed Type allopurinol 100 mg tablet 100 mg PO BID 09/28/18 12/27/24 History aspirin 81 mg tablet,delayed 81 mg PO QAM 09/28/18 12/27/24 History release (Tiara Low Dose Aspirin) atorvastatin 40 mg tablet 40 mg PO HS 09/28/18 12/27/24 History gemfibrozil 600 mg tablet 600 mg PO BID 09/28/18 12/27/24 History levothyroxine 112 mcg tablet 112 mcg PO QAM 09/28/18 12/27/24 History metoprolol tartrate 25 mg tablet 25 mg PO BID 09/28/18 12/27/24 History mometasone 50 mcg/actuation nasal 1 - 2 spray intranasal QAM 09/28/18 12/27/24 History spray diclofenac sodium 1 % topical gel 2 g topical QID 12/09/18 12/27/24 History albuterol sulfate 2.5 mg/3 mL 2.5 mg inhalation Q4H PRN Wheezing 02/19/19 12/27/24 History (0.083 %) solution for nebulization glucosamine 375 [id number] 1 tab PO BID 08/01/20 12/27/24 History no1 500 mg-C 15 mg-donald 0.5 mg tablet dabigatran etexilate 150 mg 150 mg PO BID #14 caps 04/17/22 12/27/24 Rx capsule (Pradaxa) pen needle, diabetic 31 gauge x #500 ea 11/07/23 12/07/24 Rx 5/16" (Clickfine Pen Needle) famotidine 20 mg tablet (Pepcid) 20 mg PO BID 11/10/23 12/27/24 History furosemide 40 mg tablet (Lasix) 40 mg PO BID PRN swelling 11/10/23 12/27/24 History diltiazem HCl 360 mg capsule,24 360 mg PO DAILY 03/23/24 12/27/24 History hr,extended release gabapentin 600 mg tablet 600 mg PO TID #270 tabs 08/01/24 12/27/24 Rx blood-glucose sensor (Dexcom G6 12/07/24 12/07/24 History Sensor device) insulin lispro 100 unit/mL See Rx Instructions .Route .COMPLEX 12/07/24 12/27/24 History subcutaneous pen (Humalog KwikPen (U-100) Insulin) albuterol sulfate 90 mcg/actuation 2 inh inhalation Q4H PRN Wheezing 12/17/24 12/27/24 History aerosol inhaler insulin glargine 100 unit/mL (3 50 unit subcut BID 12/17/24 12/27/24 History mL) subcutaneous pen (Lantus Solostar U-100 Insulin) ipratropium 20 mcg-albuterol 100 1 puff inhalation QID 12/17/24 12/27/24 History mcg/actuation mist for inhalation (Combivent Respimat) silver sulfadiazine 1 % topical 1 applic topical DAILY 12/17/24 12/27/24 History cream potassium chloride 20 mEq 20 meq PO BID PRN Take when you 12/20/24 12/27/24 Rx tablet,extended release take Lasix #30 tabs Lactobacillus acidophilus and 1 cap PO DAILY 12/27/24 12/27/24 History rhamnosus 15 billion cell capsule (Probiotic) ascorbic acid (vitamin C) 100 mg 100 mg PO DAILY 12/27/24 12/27/24 History tablet (Vitamin C) magnesium glycinate 100 mg (as 100 mg PO DAILY 12/27/24 12/27/24 History glycinate) tablet tirzepatide 10 mg/0.5 mL 10 mg subcut WK 12/27/24 12/27/24 History subcutaneous pen injector zinc gluconate 50 mg tablet 100 mg PO DAILY 12/27/24 12/27/24 History Patient History Medical History Elevated troponin Loss of protective sensation of skin of foot Rectal bleed Lower gastrointestinal hemorrhage Nausea and vomiting after administration of anesthetic agent Hx of ovarian cancer 2018- surgical intervention, no chemo or radiation-[facility] [place] Liver lesion Liver cell injury Ovarian cancer on right 28 lb R adnexal mass removed 07/22/19 Edema Closed head injury Syncope Leg wound, right Atrial fibrillation with rapid ventricular response (07/14/14) - follows w/ dr norris last visit 1 yr ago- takes pradaxa Surgical History S/P appendectomy during hysterectomy S/P hysterectomy Status post colonoscopy with polypectomy History of cholecystectomy History of hernia repair during hysterectomy Family History Father Myocardial infarction Coronary heart disease Diabetes Mother Complication of surgery Diabetes Sister Diabetes Sister Diabetes Brother Diabetes "Pre-diabetic" Sister Diabetes Sister Gestational diabetes Grandmother (Paternal) Diabetes Grandmother (Maternal) Diabetes Social History Smoking Status: Never smoker Cigarettes Per Day: 0; Second Hand Exposure: No; Do You Dip or Chew Tobacco: No; Hx Alcohol Use: Yes Hx Substance Use: No Preferred Language: Austrian Communication Ability: Effective 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 Beliefs That Will Affect Care: None marital status: / Current Living Situation: Alone Current Living Situation Comment: Lives at home with daugther, son in law and grandchildren Other Information That Helps Us Care for You: No Feels Safe at Home: Yes Safety Concerns: Feels Safe At This Time Assistive Devices: Walker Review of Systems Constitutional: as per Subjective / HPI Respiratory: no wheezing and no problem reported Cardiovascular: no chest pain, no palpitations and no syncope Gastrointestinal: + abdominal pain, + nausea, + vomiting a nd + constipation Physical Exam Constitutional: WD/WN, vitals as above Respiratory: normal respiratory effort, lungs clear to auscultation Cardiovascular: Rate/Rhythm: regular rate Gastrointestinal (Abdomen): Inspection/Auscultation: abdomen normal to inspection, + visible herniation (Right side of abdomen ) and + abdominal surgical scar Percussion/Palpation: + hernia (large right-sided ventral hernia without tenderness to palpation ); abdomen nontender, no guarding and abdomen not rigid Psychiatric: A+Ox3, euthymic affect Results & Data Vital Signs (Past 12 Hours) Vital Signs Temp Pulse Pulse Resp BP BP Pulse Ox 12/27/24 05:39 79 21 94 12/27/24 05:30 121/75 12/27/24 05:03 12/27/24 05:03 36.4 C L 68 20 122/68 94 12/27/24 04:33 75 19 92 12/27/24 04:30 138/88 12/27/24 04:21 74 18 92 12/27/24 04:00 109/84 12/27/24 02:54 98 12/27/24 02:33 90 20 93 12/27/24 02:30 98/80 L 12/27/24 01:54 79 18 88 L 12/27/24 01:33 73 20 96 12/27/24 01:15 75 94 12/27/24 01:13 71 95 12/27/24 00:44 76 12/26/24 23:56 36.2 C L 68 16 147/70 H 95 O2 Del Method O2 Flow Rate 12/27/24 05:39 Nasal Cannula 2 12/27/24 05:30 12/27/24 05:03 Room Air 2 12/27/24 05:03 Nasal Cannula 2 12/27/24 04:33 Nasal Cannula 2 12/27/24 04:30 12/27/24 04:21 Nasal Cannula 2 12/27/24 04:00 12/27/24 02:54 Nasal Cannula 2 12/27/24 02:33 Nasal Cannula 2 12/27/24 02:30 12/27/24 01:54 Room Air 12/27/24 01:33 Room Air 12/27/24 01:15 Room Air 12/27/24 01:13 Room Air 12/27/24 00:44 12/26/24 23:56 Room Air Diagnostic Findings EXAM: CT abd pelvis IV con only CLINICAL HISTORY: hx SBO, pain, no BM TECHNIQUE: Multiple contiguous axial images were obtained from the level of diaphragm to the pubis symphysis. This study was acquired after the IV administration of iodinated contrast material, given the patient's indications for the examination. If IV contrast material had not been administered, the likelihood of detecting abnormalities relevant to the patient's condition would have been substantially decreased. Coronal and sagittal reformatted images were generated and reviewed to improve anatomic localization and optimize lesion detection. CT scan was performed according to ALARA (as low as reasonably achievable). COMPARISON: Ct, 12/17/2024 16:50:00 [facility] [place] FINDINGS: The visualized lung bases are clear. ABDOMEN/PELVIS: Lax anterior abdominal wall seen. Defect in right paramedian anterior abdominal wall at epigastric region with herniation of large bowel loop(mid transverse colon segment). The defect measures about 2.5x3.3cm(TRxCC). Another large defect seen in right paramedian anterior upper abdominal wall below the upper defect, measuring 6x5.3cm(TRxCC) with herniation of small bowell loops and its mesentery. The herniated bowel loops are distended with interbowel fluid within the heniated sac. Secondarily there is dilatation od rest of small bowel loops with multiple sir fluid levels, maximum diameter of dilated loops- 4.5cm. Multiple small diverticuli of 2mm seen in sigmoid and descending colon. No inflammatory changes. The liver is normal in size and attenuation. No focal liver lesions are seen. There is no intra or extrahepatic biliary ductal dilatation. Hepatic vasculature is patent. Post cholecystectomy status. The spleen, pancreas, and adrenal glands are unremarkable. The kidneys are normal in size and attenuation. There is no hydronephrosis or perinephric fat stranding. No renal calculi or renal masses are identified. Few simple cortical cysts seen in bilateral kidneys of average size 8-12mm. The ureters are normal in caliber and no ureteral calculi are seen. The bladder is normal in contour. The appendix is not visualized . Post hysterectomy status. No adenopathy or fluid collections are seen. The aorta is normal in caliber. No aggressive appearing osseous lesions are identified. IMPRESSION: 1. Right paramedian anterior upper abdominal wall hernia with herniated small bowel loops , secondarily complicated by acute small bowel obstruction. 2. An uncomplicated right paramedian anterior upper abdominal wall epigastric hernia with herniation of large bowel loop(mid transverse colon segment). 3. Uncomplicated sigmoid and descending colon diverticulosis. 4. Few bilateral renal simple cortical cysts 5. No interval changes. No pneumoperitoneum. The obstruction is still persistent. PG Care Time/CCT Total # of Minutes Spent Total Time Spent with Patient: Total time spent is greater than 50% in coordination of care (as documented) at patient's floor/unit and/or counseling patient: [place] [address] INT INP/OBS CARE 1/40MIN Patient Type New History Problem Focused Medical Decision Making Straight Forward Diagnoses SBO (small bowel obstruction) K56.609
[2024-12-27] MEDS: Ipratropium HFA Inhaler (Combivent Respimat P&T Subs) INH SCH (07:00)
[2024-12-27] MEDS: Albuterol HFA 8 GM Inhaler (Combivent Respimat P&T Subs) INH SCH (07:01)
[2024-12-27] MEDS ORDERED: NON-FORMULARY MEDICATION (Magnesium Glycinate 100 mg Tablet) PO SCH (09:00)
[2024-12-27] MEDS ORDERED: IPRATROPIUM BROMIDE/ALBUTEROL respimat INH INH SCH (09:00)
[2024-12-27] MEDS: dilTIAZem HCL 180 MG CAPCR PO SCH (09:15)
[2024-12-27] MEDS: ASPIRIN 81 MG ECTAB PO SCH (09:15)
[2024-12-27] MEDS: ASCORBIC ACID 500 MG TAB PO SCH (09:15)
[2024-12-27] MEDS: allopurinoL 100 MG TAB PO SCH (09:15)
[2024-12-27] MEDS: ADVANCED PROBIOTIC 625 MG CAPSULE PO SCH (09:16)
[2024-12-27] MEDS: METOPROLOL TARTRATE 25 MG TAB PO SCH (09:16)
[2024-12-27] MEDS: gemfibroziL 600 MG TAB PO SCH (09:16)
[2024-12-27] MEDS: GABAPENTIN 600 MG TAB PO SCH (09:16)
[2024-12-27] MEDS: FLUTICASONE PROPIONATE NA SPR 16 GM BTL SCH (10:10)
[2024-12-27] MEDS: FAMOTIDINE 20MG IV PUSH 20 MG/5 ML SYR IV SCH (10:28)
[2024-12-27] MEDS: LANTUS PER UNIT CHARGE SQ SCH ×2 (10:28→21:08)
[2024-12-27 10:36] LABS: Basophils # (auto) 0.09 K/uL (0.00-0.20); Basophils % (auto) 0.8 %; Eosinophils # (auto) 0.18 K/uL (0.00-0.50); Eosinophils % (auto) 1.5 %; Hemoglobin 13.6 g/dl (12.0-16.0); Immature Granulocytes # (auto) 0.02 K/uL (0.01-0.20); Immature Granulocytes % (auto) 0.2 %; Lymphocytes # (auto) 2.84 K/uL (1.20-3.40); Lymphocytes % (auto) 24.4 %; Mean Corpuscular Hemoglobin 30.4 pg (25.0-34.0); Mean Corpuscular Hgb Conc 33.2 g/dL (32.0-36.0); Mean Corpuscular Volume 91.5 fL (80.0-100.0); Mean Platelet Volume 11.2 fL (9.4-12.4); Monocytes # (auto) 0.97 K/uL (0.11-0.59); Monocytes % (auto) 8.3 %; Neutrophils # (auto) 7.53 K/uL (1.40-6.50); Neutrophils % (auto) 64.8 %; Platelet Count 373 K/uL (130-400); RDW Standard Deviation 53.6 fL (36.4-46.3); Red Blood Count 4.48 M/uL (4.20-5.40); White Blood Count 11.63 K/ul (4.8-10.8)
[2024-12-27 10:42] LABS: Calcium 8.5 mg/dl (8.6-10.3); Magnesium 2.3 mg/dl (1.7-2.4); Potassium 3.7 mmol/L (3.5-5.1)
[2024-12-27 10:48] LABS: BUN Creatinine Ratio 15.1 (10-20); Creatinine Clr Calc Pharmacy 85.9 ml/min
--- OUTSIDE RECORDS SUMMARY | 2024-12-27 10:56 | External Medical Summary | Summary of Care ---
Author Name Unknown Organization [facility] Address [address] [facility] [place] [address] Phone [phone] Care Team Providers Care Dietary Services Director Name Role Phone Mohsen Vazquez MD Primary Care Provider [phone] Reason for Visit * Reason Onset Date Comments Hospital Follow-Up Hospital Follow-Up 12/26/2024 Encounter Details Date Type Department Care Team (Late st Contact Info) Description 12/26/2024 11:00 AM EDT Office Visit Family [facility] [address] [facility] [place] [address] Mohsen Vazquez MD [address] [facility] [place] [address] Hospital discharge follow-up*; Partial small bowel obstruction (HCC) Allergies Active Allergy Reactions Criticality Noted Date Comments Pioglitazone 01/14/2017 British Cockroach 12/16/2022 Other Reaction(s): UNK Cat Dander 12/16/2022 Other Reaction(s): UNK Codeine Nausea/vomiting 01/14/2017 Meperidine Nausea/vomiting 01/14/2017 Dust Unknown 12/16/2022 Hydrocodone 12/16/2022 Other Reaction(s): Nausea Hydrocodone-Acetaminophen 02/07/2024 Other Reaction(s): Unknown Empagliflozin 11/22/2023 Nickel High 12/16/2022 Other Reaction(s): Redness of Skin Other Allergy (See Comments) 03/05/2019 Cockroaches, dust, cat dander, paloma Hydrocodone-Acetaminophen Nausea/vomiting 01/14 Wound Dressings Rash 02/07/2024 documented as of this encounter (statuses as of 12/26/2024) Medications albuterol sulfate (PROVENTIL) (2.5 MG/3ML) 0.083% nebulizer solutionIndicat ions:COPD exacerbation (HCC) Inhale 1 Vial via nebulizer every 4 hours as needed for Wheezing. 540 Vial 3 019 Active aspirin 81 MG chewable tablet Take 1 Tab by mouth daily. with food. 100 Tab 5 019 Active Misc. Devices MISC [place] walker left lower extremity - Diagnosis: Charcot left 1 Each 020 Active Glucose Blood ([employer] Living[employer]CH ULTRA BLUE) STRP Use to test 4 times per day. 400 Strip 3 Active Vitamin C 100 MG Oral Tablet Take 1 Tablet by mouth in the morning. Active Zinc 100 MG Oral Tablet Take by mouth. Act babita Magnesium 100 MG Oral Capsule Take 1 Capsule by mouth in the morning. Active Glucosamine Chond Complex/MSM Oral Tablet Take 1 Tablet by mouth in the morning and 1 Tablet before bedtime. Active Lantus SoloStar 100 UNIT/ML Subcutaneous Solution Pen-injector INJECT 50 UNITS UNDER THE SKIN TWO TIMES DAILY 90 mL 2 021 Active BD Pen Needle Short U/F 31G X 8 MM USE WITH LANTUS AND HUMALOG INSULIN PENS FIVE TIMES DAILY 450 Each 3 021 Active CPAP every night at bedtime. Active Misc. Devices Diabetic custom shoes with inserts - Type II DM with neuropathy, charcot left 1 Each Active ProAir HFA 108 (90 Base) MCG/ACT Inhalation Aerosol SolutionIndicat ions:COPD exacerbation (HCC) Inhale by mouth 2 Puffs every 4 hours as needed for Wheezing. 8 g 2 022 Active Spacer/Aero-Hol ding Chambers DeviceIndicatio ns:COPD exacerbation (HCC) Use with inhaler. 1 Each 022 Active Dexcom G6 Sensor Use as directed. Act babita Gabapentin 600 MG Oral Tablet (Neurontin)Magy cations:Type 2 diabetes mellitus with diabetic polyneuropathy, without long-term current use of insulin (HCC) TAKE 1 TABLET TWICE A DAY 180 Tablet 3 023 Active Additional Information Patient taking differently: TID(AM/NOON/HS), Reported on 08/15/2024 dilTIAZem HCl ER Beads 360 MG Oral Capsule Extended Release 24 Hour (Tiazac) TAKE 1 CAPSULE DAILY 90 Capsule 3 024 Active Diclofenac Sodium 1 % External Gel (Voltaren) APPLY 2 GRAMS TOPICALLY TO AFFECTED AREA FOUR TIMES A DAY 700 g 3 024 Active Atorvastatin Calcium 40 MG Oral Tablet (Lipitor)Indica tions:Dyslipide sintia TAKE 1 TABLET AT BEDTIME 90 Tablet 3 024 Active HumaLOG KwikPen 100 UNIT/ML Subcutaneous Solution Pen-injectorInd ications:Type 2 diabetes mellitus with hemoglobin A1c goal of less than 7.0% ([facility]) INJECT 35 UNITS IN THE MORNING PLUS SLIDING SCALE, 15 UNITS AT 2 P.M. PLUS SLIDING SCALE, AND 30 UNITS IN THE EVENING PLUS SLIDING SCALE 75 mL 024 Active Dabigatran Etexilate Mesylate 150 MG Oral Capsule (Pradaxa) TAKE 1 CAPSULE TWICE A DAY 180 Capsule 3 024 Active Mounjaro 2.5 MG/0.5ML Subcutaneous Solution Auto-injector INJECT 2.5 MG (0.5 ML) SUBCUTANEOUSLY EVERY 7 DAYS 024 Active Furosemide 40 MG Oral Tablet (Lasix) TAKE 1 TABLET TWICE A DAY NEEDED FOR SWELLING 180 Tablet 1 024 Active Levothyroxine Sodium 112 MCG Oral Tablet (Levoxyl) TAKE 1 TABLET DAILY 90 Tablet 3 024 Active Combivent Respimat 20-100 MCG/ACT Inhalation Aerosol Solution (Ipratropium-Al buterol) USE 1 INHALATION FOUR TIMES A DAY 12 g 1 024 Active Silver sulfADIAZINE 1 % External Cream (Silvadene) Apply to right lower leg wound. Cover with gauze. Perform once daily. 400 g 1 025 Active Gemfibrozil 600 MG Oral Tablet (Lopid) TAKE 1 TABLET TWICE A DAY 180 Tablet 1 025 Active Metoprolol Tartrate 25 MG Oral Tablet (Lopressor)Magy cations:Paroxys mal atrial fibrillation (HCC) TAKE 1 TABLET TWICE A DAY 180 Tablet 1 025 Active Famotidine 20 MG Oral Tablet (Pepcid) TAKE 1 TABLET TWICE A DAY 180 Tablet Active Mometasone Furoate 50 MCG/ACT Nasal SuspensionIndic ations:Moderate persistent asthma without complication USE 1 TO 2 SPRAYS IN EACH NOSTRIL DAILY 51 g 1 025 Active Allopurinol 100 MG Oral Tablet (Zyloprim) TAKE 1 TABLET TWICE A DAY 180 Tablet Active Potassium Chloride ER 20 MEQ Oral Tablet Extended Release Take 1 Tablet by mouth 2 times a day as needed. Active Probiotic Daily Oral Capsule Take 1 Capsule by mouth in the morning. Active Doxycycline Hyclate 100 MG Oral Tablet Take 1 Tablet by mouth in the morning and 1 Tablet before bedtime. 14 Tablet 025 2024 Discontinued Cefdinir 300 MG Oral Capsule (Omnicef) Take 1 Capsule by mouth in the morning and 1 Capsule before bedtime. 025 2024 Discontinued documented as of this encounter (statuses as of 12/26/2024) Active Problems Problem Noted Date Diagnosed Date Super-super obese 08/15/2024 COPD, group B, by GOLD 2017 classification 09/13 Overview: Per COPD GOLD Classification HTN, goal below 130/80 09/11/2019 Stage 3a chronic kidney disease 11/20/2018 DM type 2 with diabetic chronic skin ulcer 09/15 PCOS (polycystic ovarian syndrome) 11/11/2017 Chronic atrial fibrillation 05/27/2017 Depression with anxiety 01/14/2017 Type 2 diabetes mellitus wit h hemoglobin A1c goal of less than 8.0% 01/14/2017 Acquired hypothyroidism 01/14/2017 Dyslipidemia 01/14/2017 NAVI (obstructive sleep apnea) 01/14/2017 Gastroesophageal reflux disease with esophagitis 01/14/2017 BPPV (benign paroxysmal positional vertigo) 01/01 Idiopathic chronic gout of multiple sites withou t tophus 01/14/2017 Ovarian cancer in remission documented as of this encounter (statuses as of 12/26/2024) Resolved Problems Problem Noted Date Diagnosed Date Resolved Date History of ovarian cancer 09/11/2019 Diabetic ulcer of left great toe 03/05/2019 03/12/2020 Cellulitis of right lower extremity 10/11/2018 12/20/2018 Benign hypertension with CKD (chronic kidney disease) stage III 05/11/2018 01/19/2021 COPD, moderate 05/11/2018 09/16/2022 Overview: Per COPD GOLD Classification Type 2 diabetes mellitus wit h stage 3 chronic kidney disease, with long-term current use of insulin 04/28/2017 08/15/2024 HTN, goal below 140/90 01/14/201705/11 Paroxysmal atrial fibrillation 01/14/2017 05/27/2017 Type 2 diabetes mellitus wit h diabetic polyneuropathy, without long-term current use of insulin 01/14/2017 03/12/2020 Super obese 01/14/2017 08/15/2024 Peripheral edema 01/14/2017 03/12/2020 Moderate persistent asthma w ithout complication 01/14/2017 03/12/2020 Non compliance with medical treatment 01/14/2017 02/02/2022 documented as of this encounter (statuses as of 12/26/2024) Immunizations Name Administration Dates Next Due COVID-19 mRNA, LNP-s, No Pre serve, 2-Dose Series (TribeHR) 09/08/2021,12/27/2020,12/06/2020,11/08 Covid-19, Mrna, Lnp-s, Pf, B ivalent, 30 Mcg, IM, 12 yrs and above (Pfizer) 08/23/2022 Pneumococcal Conjugate Vacc, 13 Valent (Prevnar) 02/01/2023,07/16/2015 Pneumococcal Polysaccharide PPV23 (Pneumovax) 03/12/2020 Season Influenza, Quad, PF, Adjuvanted, 65+ Yrs, IM (FLUAD) 07/18/2020 Seasonal Influenza, High Dos e, Trivalent, PF, IM (Fluzone HD) 08/15/2024 Seasonal Influenza, PF, 6 M & above, IM , (FluLaval or Fluzone) 07/05/2019,07/06/2018,11/11/2017 Seasonal Influenza, Quadriva lent Hd (Fluzone Hd) 08/16/2023,06/22/2022,06/30/2021 TDAP (age 10 and older)(Boostrix) 11/11/2017 Varicella Zoster Vaccine (Adult) 06/05/2015 Zoster Vaccine Recombinant (Shingrix) 05/16/2023 ,02/01/2023 documented as of this encounter Social History Tobacco Use Types Packs/Day Years Used Date Smoking Tobacco: Former Cigarettes 0 1 0 01/1976 - 01/1977 Passive Smoke Exposure: Past Smokeless Tobacco: Never Alcohol Use Standard Drinks/Week Comments Yes 0 (1 standard drink = 0.6 oz pur e alcohol) rarely PHQ-2 Answer Date Recorded PHQ Adult Total Score 0 07/26/2022 Hunger Vital Sign Answer Date Recorded Within the past 12 months, y ou worried that your food would run out before you got the money to buy more. Never true 02/07/20 24 Within the past 12 months, t he food you bought just didn't last and you didn't have money to get more. Never true 02/07/2024 Childcare Answer Date Recorded Do you feel overwhelmed with taking care of a child, family member or friend? No 02/07/2024 Does your family need help f inding childcare? (Household - for ages 0-17 years) Not on file 02/07/2024 Clothing Answer Date Recorded Have you been unable to get clothing when it was really needed? No 02/07/2024 Is your family able to get c lothes or diapers when needed? (Household - for ages 0-17 years) Not on file 02/07/2024 Personal Safety Answer Date Recorded Do you feel unsafe or have concerns for your saf ety? No 02/07/2024 Do you have concerns for you r family's safety? (Household - for ages 0-17 years) Not on file 02/07/2024 Utilities Answer Date Recorded Do you have trouble paying y our heating, water, or electric bill? No 02/07/2024 Is your family able to pay t he heat, water, or electric bill? (Household - for ages 0-17 years) Not on file 02/07/2024 Does your family have access to good internet? (Household - for ages 0-17 years) Not on file 02/07/2024 Employment Status Answer Date Recorded Are you unemployed or without regular income? No 02/07/2024 Does the household have a re gular source of income? (Household - for ages 0-17 years) Not on file 02/07/2024 Social Connections Answer Date Recorded How often do you feel lonely or isolated from th ose around you? Never 02/07/2024 Financial Resource Strain Answer Date R ecorded Do you have any trouble payi ng for your medications, or do you think you might in the future? No 02/07/2024 Does your family have troubl e paying for medicine? (Household - for ages 0-17 years) Not on file 02/07/2024 Transportation Needs Answer Date Record ed READ ONLY Do you have troubl e getting a ride to medical visits or work? Never True 02/07/2024 Does your family have a hard time getting a ride to doctors visits? (Household - for ages 0-17 years) Not on file 02/07/2024 Has lack of transportation k ept you from medical appointments, meetings, work, or from getting things needed for daily living? Check all that apply. (Adult - for ages 18 years and over) Not on file 02/07/2024 Do you (or your family) have trouble finding or paying for a ride (transportation)? (Household - for ages 0-17 years) Not on file 02/07/2024 Housing Stability Answer Date Recorded Do you currently live in a s helter or have no steady place to sleep at night? No 02/07/2024 READ ONLY Do you think you a re at risk of becoming homeless? No 02/07/2024 Does your family worry about paying for your home or becoming homeless? (Household - for ages 0-17 years) Not on file 0 02/07/2024 Are you homeless or worried that you might be in the future? (Adult - for ages 18 years and over) Not on file Are you (or your family) tonya eless or worried that you might be in the future? (Household - for ages 0-17 years) Not on file Food Insecurity Answer Date Recorded Do you need food for this week? No 02/07/2024 Are you able to get enough f ood for your family? (Household - for ages 0-17 years) Not on file 02/07/2024 Does your family need food t his week? (Household - for ages 0-17 years) Not on file 02/07/2024 Do you always have enough fo od for your family? (Household - for ages 0-17 years) Not on file 02/07/2024 Food Insecurity Answer Date Recorded Within the past 12 months, y ou worried that your food would run out before you got the money to buy more. Never true 02/07/20 24 Within the past 12 months, t he food you bought just didn't last and you didn't have money to get more. Never true 02/07/2024 Do you need food for this week? No 02/07/2024 Comments No Sex and Gender Information Value Date Recorded Sex Assigned at Not on file Legal Sex Female 5:53 AM EST Gender Identity Not on file Sexual Orientation Not on file documented as of this encounter Last Filed Vital Signs Vital Sign Reading Time Taken Comments Blood Pressure 168/64 12/26/2024 11:03 AM EDT Pulse 68 12/26/2024 11:03 AM EDT Temperature 36.6 C (97.8 F) 12/26/2024 11:03 AM E DT Respiratory Rate 18 12/26/2024 11:03 AM EDT Oxygen Saturation - - Inhaled Oxygen Concentration - - Weight 136.5 kg (301 lb) 12/26/2024 11:03 AM EDT Height 154.9 cm (5' 1") 12/26/2024 11:03 AM EDT Body Mass Index 56.87 12/26/2024 11:03 AM EDT documented in this encounter Progress Notes * Mohsen Vazquez MD - 12/26/2024 2:57 PM EDT SUBJECTIVE: Connie Araujo is a 69 year old female. Chief Complaint Patient presents with Hospital Follow-Up Hospital Follow-Up Recent Admission: Patient was recently admitted to [facility]. The date of discharge was 12/20/24. Discharge report receivedand reviewed. HPI: Hospital d/c follow up for PSBO. Managed conservatively and resolved. As of this moment, she has a very large chronic ventral hernia that "no surgeon will touch." She was told by her surgery team she needs to lose a total of 100 lbs before they will even consider surgical intervention. Thus far, she has lost 40 lbs. The medical conundrum is that she is using a GLP-1 agonist to lose weight, however that class of medication can be considered relatively contraindicated in those with bowel obstructions. We need to keep a careful eye on things. She is following a strict diet. Patient Active Problem List Diagnosis Depression with anxiety Type 2 diabetes mellitus with hemoglobin A1c goal of less than 8.0% ([facility]) Acquired hypothyroidism Dyslipidemia NAVI (obstructive sleep apnea) Gastroesophageal reflux disease with esophagitis BPPV (benign paroxysmal positional vertigo) Idiopathic chronic gout of multiple sites without tophus Chronic atrial fibrillation (HCC) PCOS (polycystic ovarian syndrome) DM type 2 with diabetic chronic skin ulcer ([facility]) Stage 3a chronic kidney disease ([facility]) Ovarian cancer in remission HTN, goal below 130/80 COPD, group B, by GOLD 2017 classification ([facility]) Super-super obese ([facility]) Current Outpatient Medications Medication Sig Dispense Refill albuterol sulfate (PROVENTIL) (2.5 MG/3ML) 0.083% nebulizer solution Inhale 1 Vial via nebulizer every 4 hours as needed for Wheezing. 540 Vial 3 aspirin 81 MG chewable tablet Take 1 Tab by mouth daily. with food. 100 Tab 5 Vitamin C 100 MG Oral Tablet Take 1 Tablet by mouth in the morning. Zinc 100 MG Oral Tablet Take by mouth. Magnesium 100 MG Oral Capsule Take 1 Capsule by mouth in the morning. Glucosamine Chond Complex/MSM Oral Tablet Take 1 Tablet by mouth in the morning and 1 Tablet beforebedtime. Lantus SoloStar 100 UNIT/ML Subcutaneous Solution Pen-injector INJECT 50 UNITS UNDER THE SKIN TWO TIMES DAILY 90 mL 2 CPAP every night at bedtime. ProAir HFA 108 (90 Base) MCG/ACT Inhalation Aerosol Solution Inhale by mouth 2 Puffs every 4 hours as needed for Wheezing. 8 g 2 Spacer/Aero-Holding Chambers Device Use with inhaler. 1 Each 0 dilTIAZem HCl ER Beads 360 MG Oral Capsule Extended Release 24 Hour (Tiazac) TAKE 1 CAPSULE DAILY 90 Capsule 3 Diclofenac Sodium 1 % External Gel (Voltaren) APPLY 2 GRAMS TOPICALLY TO AFFECTED AREA FOUR TIMES ADAY 700 g 3 Atorvastatin Calcium 40 MG Oral Tablet (Lipitor) TAKE 1 TABLET AT BEDTIME 90 Tablet 3 HumaLOG KwikPen 100 UNIT/ML Subcutaneous Solution Pen-injector INJECT 35 UNITS IN THE MORNING PLUS SLIDING SCALE, 15 UNITS AT 2 P.M. PLUS SLIDING SCALE, AND 30 UNITS IN THE EVENING PLUS SLIDING SCALE75 mL 0 Dabigatran Etexilate Mesylate 150 MG Oral Capsule (Pradaxa) TAKE 1 CAPSULE TWICE A DAY 180 Capsule 3 Mounjaro 2.5 MG/0.5ML Subcutaneous Solution Auto-injector INJECT 2.5 MG (0.5 ML) SUBCUTANEOUSLY EVERY 7 DAYS Furosemide 40 MG Oral Tablet (Lasix) TAKE 1 TABLET TWICE A DAY NEEDED FOR SWELLING 180 Tablet 1 Levothyroxine Sodium 112 MCG Oral Tablet (Levoxyl) TAKE 1 TABLET DAILY 90 Tablet 3 Combivent Respimat 20-100 MCG/ACT Inhalation Aerosol Solution (Ipratropium- Albuterol) USE 1 INHALATION FOUR TIMES A DAY 12 g 1 Silver sulfADIAZINE 1 % External Cream (Silvadene) Apply to right lower leg wound. Cover with gauze. Perform once daily. 400 g 1 Gemfibrozil 600 MG Oral Tablet (Lopid) TAKE 1 TABLET TWICE A DAY 180 Tablet 1 Metoprolol Tartrate 25 MG Oral Tablet (Lopressor) TAKE 1 TABLET TWICE A DAY 180 Tablet 1 Famotidine 20 MG Oral Tablet (Pepcid) TAKE 1 TABLET TWICE A DAY 180 Tablet 1 Mometasone Furoate 50 MCG/ACT Nasal Suspension USE 1 TO 2 SPRAYS IN EACH NOSTRIL DAILY 51 g 1 Allopurinol 100 MG Oral Tablet (Zyloprim) TAKE 1 TABLET TWICE A DAY 180 Tablet 1 Potassium Chloride ER 20 MEQ Oral Tablet Extended Release Take 1 Tablet by mouth 2 times a day as needed. Probiotic Daily Oral Capsule Take 1 Capsule by mouth in the morning. Misc. Devices MISC [place] walker left lower extremity - Diagnosis: Charcot left 1 Each 0 Glucose Blood (ONETOUCH ULTRA BLUE) STRP Use to test 4 times per day. 400 Strip 3 BD Pen Needle Short U/F 31G X 8 MM USE WITH LANTUS AND HUMALOG INSULIN PENS FIVE TIMES DAILY 450 Each 3 Misc. Devices Diabetic custom shoes with inserts - Type II DM with neuropathy, charcot left 1 Each 0 Dexcom G6 Sensor Use as directed. Gabapentin 600 MG Oral Tablet (Neurontin) TAKE 1 TABLET TWICE A DAY (Patient taking differently: 3 times a day.) 180 Tablet 3 No current facility-administered medications for this visit. Current and discharge medications have been reconciled. Review of patient's allergies indicates: Allergen Reactions Nickel Other Reaction(s): Redness of Skin Actos [Pioglitazone] British Cockroach Other Reaction(s): UNK Cat Dander Other Reaction(s): UNK Codeine Nausea/vomiting Demerol Hcl [Meperidine] Nausea/vomiting Dust Unknown Hydrocodone Other Reaction(s): Nausea Hydrocodone-Acetaminophen Other Reaction(s): Unknown Jardiance [Empagliflozin] Other Allergy (See Comments) Cockroaches, dust, cat dander, paloma Vicodin [Hydrocodone-Acetaminophen] Nausea/vomiting Wound Dressings Rash OBJECTIVE: BP 168/64 | Pulse 68 | Temp 97.8 F (36.6 C) | Resp 18 | Ht 5' 1" (1.549 m) | Wt (!) 301 lb (136.5 kg) | BMI 56.87 kg/m | BSA 2.42 m PHYSICAL EXAM: Gen: morbidly obese Lungs: ctab Heart: rrr, no mrg GI: diminished bowel sounds all 4 quadrants ASSESSMENT: Hospital discharge follow-up (Primary) - DISCH MED RECON CUR MED LIS Partial small bowel obstruction (HCC) PLAN: Continue present medication(s): Follow up as needed. I spent a total of 10-19 minutes (exact time 12 mins) minutes on the date of service in preparation, delivery, and documentation of the care provided to Connie Araujo excluding any time spent in performance of separately billed services. Mohsen Vazquez MD documented in this encounter Nursing Notes * Frances Rivera LPN - 12/26/2024 11:02 AM EDT The patient has been properly identified by confirmation of name and date of . Chief Complaint Patient presents with Hospital Follow-Up documented in this encounter Plan of Treatment Upcoming Encounters Date Type Department Care Team (Late st Contact Info) Description 01/04/2025 3:00 PM EDT Office Visit Podiatry [facility] [address] [place] [phone] Rafaela Jean DPM [address] [place] [address] [place] [address] 02/19/2025 4:40 PM EDT Office Visit Family Practice [facility] [address] [place] [address] Mohsen Vazquez MD [address] [place] [address] 05/28/2025 3:40 PM EDT Office Visit [facility] [address] [place] [id number] Connie Mirza DO [address] [place] [id number] Health Maintenance Due Date Last Done Comments Cologuard 02/29/2000 Fecal Occult Blood Test 02/29/2000 Sigmoidoscopy 02/29/2000 Adult Wellness Visit 07/26/2023 07/26/2022 Depression Monitoring 07/26/2023 07/26/2022 COVID-19 Vaccine ( season) 2024 08/23/2022, 09/08/2021, 12/27/2020, Additional history exists Diabetic Foot Exam 02/06/2025 02/07/2024, 0 02/07/2024, 07/26/2022, Additional history exists CKD HGB USE SMARTSET 04717 03/08/202503/08, 05/19/2023, 04/28/2022, Additional history exists CKD PHOS USE SMARTSET 01843 03/08/2025 06/0 03/2024, 01/26/2022, 01/19/2021, Additional history exists TSH 03/08/2025 03/08/2024, 07/03, 05/19/2023, Additional history exists O2 ASSESSMENT COMPLETED IN PAST YEAR FOR COPD 05/25/2025 05/25/2024 GFR 05/30/2025 11/30/2024, 10/0 06/2024, 03/08/2024, Additional history exists HbA1c 05/30/2025 11/30/2024, 06/2024, 03/08/2024, Additional history exists Mammogram 08/15/2025 08/15/2024, 05/2022, 03/10/2022, Additional history exists Diabetic Eye Exam 09/14/2025 09/14/2024, , 12/30/2020, Additional history exists Albumin/Creatinine Ratio 11/30/2025 025, 07/11/2024, 03/08/2024, Additional history exists DTap/Tdap Vaccines (2 - Td or Tdap) 11/11/2027 11/11/2017 DXA Scan 12/25/2027 12/24/2020 Lipid Panel 03/08/2029 03/08/2024, 07/03, 05/19/2023, Additional history exists Colonoscopy 04/16/2032 04/16/2022, 04/02, 07/24/2019, Additional history exists Colorectal Cancer Screening 04/16/2032 Alpha-1 Antitrypsin Completed 02/01/2023 Pneumococcal Vaccine: 50+ Years Completed 02/01/2023, 03/12/2020, 07/16/2015 Zoster Vaccines Completed 05/16/2023, 11/2022, 06/05/2015 Influenza Vaccine (FLU shot) Completed , 08/16/2023, 06/22/2022, Additional history exists HPV (Gardasil) Vaccine Aged Out No lo nger eligible based on patient's age to complete this topic Hepatitis B Vaccine Aged Out No longe r eligible based on patient's age to complete this topic MENINGOCOCCAL (MENACTRA/MENVEO) Aged Out No longer eligible based on patient's age to complete this topic Meningitis B Vaccine (Bexsero/Trumemba) Aged Out No longer eligible based on patient's age to complete this topic documented as of this encounter Medical Devices Not on filedocumented as of this encounter Visit Diagnoses Diagnosis Hospital discharge follow-up- Primary Other follow-up examination Partial small bowel obstruction (HCC) Unspecified intestinal obstruction documented in this encounter Care Teams Dietary Services Director Relationship Specialty Start Date End Date Mohsen Vazquez MD [address] [place] [id number] PCP - General Family Medicine 01/14/17 documented as of this encounter
--- OUTSIDE RECORDS SUMMARY | 2024-12-27 10:56 | External Medical Summary | Summary of Care ---
Author Name Unknown Organization [facility] Address [address] 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 [phone] Mohsen Vazquez MD [address] [place] [address] Advice Allergies Active Allergy Reactions Criticality Noted Date Comments Pioglitazone 01/14/2017 [place] Cockroach 12/16/2022 Other Reaction(s): UNK Cat Dander [...] as of this encounter (statuses as of 12/21/2024) Medications albuterol sulfate (PROVENTIL) (2.5 MG/3ML) 0.083% nebulizer solutionIndicati ons:COPD exacerbation (HCC) Inhale 1 Vial via nebulizer every 4 hours as needed for Wheezing. 540 Vial 3 11/16/19 19 Active aspirin 81 MG chewable tablet Take 1 Tab by mouth daily. with food. 100 Tab 5 11/16/19 19 Active Misc. Devices MISC [place] walker left lower extremity - Diagnosis: Charcot left 1 Each 10/18/19 20 Active Glucose Blood (Net Zero AquaLife ULTRA BLUE) STRP Use to test 4 times per day. 400 Strip 3 02/19/20 20 Active Vitamin C 100 MG Oral Tablet Take 1 Tablet by mouth in the morning. Active Zinc 100 MG Oral Tablet Take by mouth. Activ e Magnesium 100 MG Oral Capsule Take 1 Capsule by mouth in the morning. Active Glucosamine Chond Complex/MSM Oral Tablet Take 1 Tablet by mouth in the morning and 1 Tablet before bedtime. Active Lantus SoloStar 100 UNIT/ML Subcutaneous Solution Pen-injector INJECT 50 UNITS UNDER THE SKIN TWO TIMES DAILY 90 mL 2 01/02/20 21 Active BD Pen Needle Short U/F 31G X 8 MM USE WITH LANTUS AND HUMALOG INSULIN PENS FIVE TIMES DAILY 450 Each 3 02/11/20 21 Active CPAP every night at bedtime. Active Misc. Devices Diabetic custom shoes with inserts - Type II DM with neuropathy, charcot left 1 Each 09/30/20 21 Active ProAir HFA 108 (90 Base) MCG/ACT Inhalation Aerosol SolutionIndicati ons:COPD exacerbation (HCC) Inhale by mouth 2 Puffs every 4 hours as needed for Wheezing. 8 g 2 02/07/20 22 Active Additional Information Patient not taking.Reported on 02/07/2024 Spacer/Aero-Hold ing Chambers DeviceIndication s:COPD exacerbation (HCC) Use with inhaler. 1 Each 02/07/20 22 Active Dexcom G6 Sensor Use as directed. Active Gabapentin 600 MG Oral Tablet (Neurontin)Indic ations:Type 2 diabetes mellitus with diabetic polyneuropathy, without long-term current use of insulin (HCC) TAKE 1 TABLET TWICE A DAY 180 Tablet 3 10/15/19 23 Active Additional Information Patient taking differently: TID(AM/NOON/HS), Reported on 08/15/2024 dilTIAZem HCl ER Beads 360 MG Oral Capsule Extended Release 24 Hour (Tiazac) TAKE 1 CAPSULE DAILY 90 Capsule 3 03/27/20 24 Active Diclofenac Sodium 1 % External Gel (Voltaren) APPLY 2 GRAMS TOPICALLY TO AFFECTED AREA FOUR TIMES A DAY 700 g 3 03/29/20 24 Active Atorvastatin Calcium 40 MG Oral Tablet (Lipitor)Indicat ions:Dyslipidemi a TAKE 1 TABLET AT BEDTIME 90 Tablet 3 04/20/20 24 Active HumaLOG KwikPen 100 UNIT/ML Subcutaneous Solution Pen-injectorIndi cations:Type 2 diabetes mellitus with hemoglobin A1c goal of less than 7.0% ([facility]) INJECT 35 UNITS IN THE MORNING PLUS SLIDING SCALE, 15 UNITS AT 2 P.M. PLUS SLIDING SCALE, AND 30 UNITS IN THE EVENING PLUS SLIDING SCALE 75 mL 06/05/20 24 Active Dabigatran Etexilate Mesylate 150 MG Oral Capsule (Pradaxa) TAKE 1 CAPSULE TWICE A DAY 180 Capsule 3 08/16/20 24 Active Mounjaro 2.5 MG/0.5ML Subcutaneous Solution Auto-injector INJECT 2.5 MG (0.5 ML) SUBCUTANEOUSLY EVERY 7 DAYS 08/02/20 24 Active Furosemide 40 MG Oral Tablet (Lasix) TAKE 1 TABLET TWICE A DAY NEEDED FOR SWELLING 180 Tablet 1 08/18/20 24 Active Levothyroxine Sodium 112 MCG Oral Tablet (Levoxyl) TAKE 1 TABLET DAILY 90 Tablet 3 08/28/20 24 Active Combivent Respimat 20-100 MCG/ACT Inhalation Aerosol Solution (Ipratropium-Alb uterol) USE 1 INHALATION FOUR TIMES A DAY 12 g 1 09/29/20 24 Active Silver sulfADIAZINE 1 % External Cream (Silvadene) Apply to right lower leg wound. Cover with gauze. Perform once daily. 400 g 1 10/05/19 25 Active Doxycycline Hyclate 100 MG Oral Tablet Take 1 Tablet by mouth in the morning and 1 Tablet before bedtime. 14 Tablet 10/15/19 25 Active Gemfibrozil 600 MG Oral Tablet (Lopid) TAKE 1 TABLET TWICE A DAY 180 Tablet 1 10/23/19 25 Active Metoprolol Tartrate 25 MG Oral Tablet (Lopressor)Indic ations:Paroxysma l atrial fibrillation (HCC) TAKE 1 TABLET TWICE A DAY 180 Tablet 1 10/23/19 Active Famotidine 20 MG Oral Tablet (Pepcid) TAKE 1 TABLET TWICE A DAY 180 Tablet 10/23/19 Active Mometasone Furoate 50 MCG/ACT Nasal SuspensionIndica tions:Moderate persistent asthma without complication USE 1 TO 2 SPRAYS IN EACH NOSTRIL DAILY 51 g 10/23/19 Active Allopurinol 100 MG Oral Tablet (Zyloprim) TAKE 1 TABLET TWICE A DAY 180 Tablet 10/31/19 Active Potassium Chloride ER 20 MEQ Oral Tablet Extended Release Take 1 Tablet by mouth 2 times a day as needed. 12/21/19 Active Cefdinir 300 MG Oral Capsule (Omnicef) Take 1 Capsule by mouth in the morning and 1 Capsule before bedtime. 12/21/19 Active Probiotic Daily Oral Capsule Take 1 Capsule by mouth in the morning. Active documented as of this encounter (statuses as of 12/21/2024) Active Problems Problem Noted Date Diagnosed Date [...] as of this encounter (statuses as of 12/21/2024) Resolved Problems Problem Noted Date Diagnosed Date [...] as of this encounter (statuses as of 12/21/2024) Immunizations Name Administration Dates Next Due COVID-19 mRNA, LNP-s, No Pre serve, 2-Dose Series (Pfizer) 09/08/2021,12/27/2020,12/06/2020,11/08 Covid-19, Mrna, Lnp-s, Pf, B ivalent, [...] on file documented as of this encounter Miscellaneous Notes * Telephone Encounter - Raquel George RN - 12/21/2024 11:49 AM EDT Provider to address: Reason for Call: Advice Patent called for [facility] - discharged 12/20/2024 from [facility] for UTI, Small Bowel Obstruction FYI/Advice Patient has not been eating solid foods yet. Is staying hydrated, taking liquids well. Denies nausea/vomiting, states does not have much of an appetite. Discussed low fiber diet with patient. Denies abdominal pain, except fleeting abdominal pain when sneezed. [facility] no [facility] today. No flatus today. States overall she feels well Advised to report abdominal pain, nausea/vomiting, no flatus or stool in the next day. Patient has follow up appt with you 12/26/2024. Reason for Call: Advice Contact: Telephone Call Contact Type: Advice Provider In-Basket: No Outcome: See above Face to face time spent with Patient (minutes): 0 Total Time including non face to face (minutes): 10 documented in this encounter Plan of Treatment Upcoming Encounters Date Type Department Care Team (Late st Contact Info) Description 12/26/2024 11:00 AM EDT Office Visit Family Practice [facility] [address] [place] [phone] Mohsen Vazquez MD [address] [place] [phone] 01/04/2025 3:00 PM EDT Office Visit Podiatry [facility] [address] [place] [phone] Rafaela Jean, DPM [address] [place] [address] 02/19/2025 4:40 PM EDT Office Visit Family Practice [facility] [address] [place] [address] Mohsen Vazquez MD [address] [place] [address] 05/28/2025 3:40 PM EDT Office Visit Sleep Disorders Ctr [facility] [address] [place] [phone] Connie Mirza DO [address] [place] [address] Health Maintenance Due Date Last Done Comments Cologuard 02/29/2000 Fecal Occult Blood Test 02/29/2000 Sigmoidoscopy 02/29/2000 Adult Wellness Visit 07/26/2023 07/26/2022 Depression Monitoring 07/26/2023 07/26/2022 COVID-19 Vaccine ( season) 2024 08/23/2022, 09/08/2021, 12/27/2020, Additional history exists Diabetic Foot Exam 02/06/2025 02/07/2024, 0 02/07/2024, 07/26/2022, Additional history exists CKD HGB USE SMARTSET 66210 03/08/202503/08, 05/19/2023, 04/28/2022, Additional history exists CKD PHOS USE SMARTSET 46260 03/08/2025 06/0 03/2024, 01/26/2022, 01/19/2021, Additional history exists TSH 03/08/2025 03/08/2024, 07/03, 05/19/2023, Additional history exists O2 ASSESSMENT COMPLETED IN PAST YEAR FOR COPD 05/25/2025 05/25/2024 GFR 05/30/2025 11/30/2024, 100 06/2024, 03/08/2024, Additional history exists HbA1c 05/30/2025 11/30/2024, 100 06/2024, 03/08/2024, Additional history exists Mammogram 08/15/2025 [...] Not on filedocumented as of this encounter Care Teams [employer] 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
--- OUTSIDE RECORDS SUMMARY | 2024-12-27 10:56 | External Medical Summary | Summary of Care ---
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 Role Phone Mohsen Vazquez MD Primary Care Provider [phone] Reason for Visit * Reason Onset Date Comments Hospital Follow-Up 12/21/2024 [facility] ([facility]) Encounter Details Date Type Department Care Team (Late st Contact Info) Description 12/21/[address] [facility] [address] [place] [address] Raquel George RN Hospital Follow-Up ([facility] ([facility])) Allergies Active Allergy Reactions Criticality Noted Date Comments Pioglitazone 01/14/2017 [place] Cockroach 12/16/2022 Other Reaction(s): UNK Cat Dander [...] albuterol sulfate (PROVENTIL) (2.5 MG/3ML) 0.083% nebulizer solutionIndicatio ns:COPD exacerbation (HCC) Inhale 1 Vial via nebulizer every 4 hours as needed for Wheezing. 540 Vial 3 11/16/19 Active aspirin 81 MG chewable tablet Take 1 Tab by mouth daily. with food. 100 Tab 5 11/16/19 19 Active Misc. Devices MISC [place] walker left lower extremity - Diagnosis: Charcot left 1 Each 10/18/19 20 Active Glucose Blood (Inadco ULTRA BLUE) STRP Use to test 4 [...] HFA 108 (90 Base) MCG/ACT Inhalation Aerosol SolutionIndicatio ns:COPD exacerbation (HCC) Inhale by mouth 2 Puffs every 4 hours as needed for Wheezing. 8 g 2 02/07/20 22 Active Additional Information Patient not taking.Reported on 02/07/2024 Spacer/Aero-Holdi ng Chambers DeviceIndications :COPD exacerbation (HCC) Use with inhaler. 1 Each 02/07/20 22 Active Dexcom G6 Sensor Use as directed. Active Gabapentin 600 MG Oral Tablet (Neurontin)Indica tions:Type 2 diabetes mellitus with diabetic polyneuropathy, without [...] Active Atorvastatin Calcium 40 MG Oral Tablet (Lipitor)Indicati ons:Dyslipidemia TAKE 1 TABLET AT BEDTIME 90 Tablet 3 04/20/20 24 Active HumaLOG KwikPen 100 UNIT/ML Subcutaneous Solution Pen-injectorIndic ations:Type 2 diabetes mellitus with hemoglobin A1c goal of less than 7.0% (HCC) INJECT 35 UNITS IN THE MORNING PLUS [...] Combivent Respimat 20-100 MCG/ACT Inhalation Aerosol Solution (Ipratropium-Albu terol) USE 1 INHALATION FOUR TIMES A DAY [...] Active Metoprolol Tartrate 25 MG Oral Tablet (Lopressor)Indica tions:Paroxysmal atrial fibrillation (HCC) TAKE 1 TABLET TWICE A DAY 180 Tablet 1 10/23/19 25 Active Famotidine 20 MG Oral Tablet (Pepcid) TAKE 1 TABLET TWICE A DAY 180 Tablet 1 10/23/19 25 Active Mometasone Furoate 50 MCG/ACT Nasal SuspensionIndicat ions:Moderate persistent asthma without complication USE 1 TO 2 SPRAYS IN EACH NOSTRIL DAILY 51 g 1 10/23/19 25 Active Allopurinol 100 MG Oral Tablet (Zyloprim) TAKE 1 TABLET TWICE A DAY 180 Tablet 1 10/31/19 25 Active Potassium Chloride ER 20 MEQ Oral Tablet Extended Release Take 1 Tablet by mouth 2 times a day as needed. 12/21/19 25 Active Cefdinir 300 MG Oral Capsule (Omnicef) Take 1 Capsule by mouth in the morning and 1 Capsule before bedtime. 12/21/19 25 Active Probiotic Daily Oral Capsule Take 1 Capsule by mouth in the morning. Active Potassium 99 MG Tablet Take 1 Tablet by mouth in the morning. 025 Disconti nued(Dis charged) Benzonatate 100 MG Oral CapsuleIndication s:COPD, group B, by GOLD 2017 classification ([facility]) Take 1 Capsule by mouth 3 times a day as needed for Cough. 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 Ovarian cancer in remission documented [...] mRNA, LNP-s, No Pre serve, 2-Dose Series (RetiDiag) 09/08/2021,12/27/2020,12/06/2020,11/08 Covid-19, Mrna, Lnp-s, Pf, B ivalent, [...] Encounter - Raquel George RN - 12/21/2024 10:28 AM EDT Transitions of Care Note Reason for Referral:Recent Admission Phone visit for follow up: [facility] Admitted to: [facility], Date: 12/17/2024 Discharged to: Home, Date: 12/20/2024 Diagnosis driving hospitalization: Small Bowel Obstruction, Urinary Tract Infection Source/Contact: Patient SUBJECTIVE Consent: Verbal consent for review of hospital discharge: Yes REVIEW OF SYSTEMS Patient/Other Reports: Current patient/caregiver problems or concerns: States she is feeling good today. Is taking liquids, staying hydrated. Does not have much of an appetite, has not been eating solid foods yet. Discussed Low fiber diet with patient/patient verbalizing understanding. Denies any abdominal pain, except fl eeting abdominal pain when sneezed, no nausea or vomiting. Had 2 small bowel movements and flatus yesterday, none today. No flatus yet today. Does not have Dexcom on currently, states she is working on putting another one on. CV: Denies problems Pulmonary: Denies problems Chills/Sweats/Fever:Denies chills/sweats Denies fever Appetite:decreased appetite Current diet: Low Fiber, Carb consistent Bowel: denies problems date of last BM: 2 BM yesterday Bladder: denies problems Wound (If applicable): N/A Pain:Denies Sleep:has trouble sleeping, rested well in recliner FUNCTIONAL STATUS: ADL'S: Needs Assistance With:N/A as pt is independent, sister helps IADL'S: Needs Assistance With:N/A as pt is independent, sister helps Cognitive and Mental Health: denies problems, alert and oriented x 3, and able to communicate, understand instructions, process information. MEDICATION RECONCILIATION Medications: Discharge med list reviewed with patient or caregiver Patient declined reviewing medication list, reviewed new and discontinued medications. New medication: Potassium chloride 20 meq, Cefdinir, Probiotic Discontinued medication: Benzonatate, Potassium 99 meq ASSESSMENT Medication Risk Assessment: No risks identified Discharge instructions available for review? Yes PLAN Symptom Monitoring Interventions:Member/caregiver education - signs and symptoms to contact PrimaryCare (DO NOT DELETE-Three saldana symptoms patient is to report to PCP) 1. Chest Pain/SOB 2. Returning abdominal pain/Nausea/Vomiting 3. 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 Educated patient/caregiver on patient right to have input on [facility]ANS plan of care. Verification of Home Health/DME if indicated: Yes, CPAP Identified Care Gaps: Yes Care Gaps closed this call: Appointment made or confirmed and Transition of Care follow-up communication Re-evaluation of Plan of Care and progress towards goals achievement: Patient education this visit: Verbal, confirmed PCP appointment, addressed reasons to call sooner as above. Plan to instructed to call Primary Care Provider with change in symptoms or as needed before next follow-up, discharge needs met, verbalizes understanding and agrees with plan. Raquel George RN documented in this encounter Plan of Treatment Upcoming Encounters Date Type Department Care Team (Late st Contact Info) Description 12/26/2024 11:00 AM EDT Office Visit [facility] [address] [place] [address] Mohsen Vazquez MD [address] [place] [address] 01/04/2025 3:00 PM EDT Office Visit Podiatry [facility] [address] [place] [phone] Rafaela Jean, DPM [address] [facility] [place] [address] 02/19/2025 4:40 PM EDT Office Visit Family Practice [facility] [address] [place] [address] Mohsen Vazquez MD [address] [place] [address] 05/28/2025 3:40 PM EDT Office Visit Sleep Disorders Ctr [facility] [address] [place] [phone] Connie Mirza DO [address] [place] [address] Health Maintenance Due Date Last Done Comments Cologuard 02/29/2000 Fecal Occult Blood Test 02/29/2000 Sigmoidoscopy 02/29/2000 Adult Wellness Visit 07/26/2023 07/26/2022 Depression Monitoring 07/26/2023 07/26/2022 COVID-19 Vaccine ( season) 2024 08/23/2022, 09/08/2021, 12/27/2020, Additional history exists Diabetic Foot Exam 02/06/2025 02/07/2024, 0 02/07/2024, 07/26/2022, Additional history exists CKD HGB USE SMARTSET 47406 03/08/202503/08, 05/19/2023, 04/28/2022, Additional history exists CKD PHOS USE SMARTSET 05503 03/08/2025 06/0 03/2024, 01/26/2022, 01/19/2021, Additional history exists TSH 03/08/2025 03/08/2024, 07/03, 05/19/2023, Additional history exists O2 ASSESSMENT COMPLETED IN PAST YEAR FOR COPD 05/25/2025 05/25/2024 GFR 05/30/2025 11/30/2024, 10/0 06/2024, 03/08/2024, Additional history exists HbA1c 05/30/2025 11/30/2024, 10/0 06/2024, 03/08/2024, Additional history exists Mammogram 08/15/2025 [...] filedocumented as of this encounter 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
[2024-12-27 11:06] LABS: Estimated Average Glucose 117 mg/dl; Hemoglobin A1C 5.7 % (4.5-5.6)
--- NOTE | 2024-12-27 12:19 | Electrocardiogram Report ---
Test Reason : Blood Pressure : */* mmHG Vent. Rate : 81 BPM Atrial Rate : * BPM P-R Int : * ms QRS Dur : 104 ms QT Int : 398 ms P-R-T Axes : * -70 49 degrees QTcB Int : 462 ms Atrial fibrillation Left anterior fascicular block Nonspecific T wave abnormality \ Abnormal ECG When compared with ECG of 27-Dec-2022 10:27, Nonspecific T wave abnormality has replaced inverted T waves in Anterior leads Confirmed by Lopez Lombardi ([id number]) on 12/27/2024 12:19:24 PM Referred By: REFERRED SELF Confirmed By: Lopez Lombardi
--- NOTE | 2024-12-27 13:02 | Pharmacy Report ---
Pharmacy Glycemic Short Note 2 - Date of Service December 27, 2024 - Glycemic Short BSG Results (Last 24 hours): 12/27/24 12/27/24 12/27/24 00:10 00:15 06:25 Glucose 142 H POC Glucose 110 H POC Glucose (other) 142 H 12/27/24 12/27/24 09:30 12:18 Glucose 99 POC Glucose 99 POC Glucose (other) OUTPATIENT ANTIDIABETIC REGIMEN: * Lantus 50 units BID, Humalog 15 units with meals (per 12/20 discharge) * A1c 5.8% 12/18/24 ASSESSMENT: * Patient admitted with SBO, conservative management for now, NPO * Received 25 units of lantus this AM, this is ~50% of patients dose she received yesterday (reported 50 units in the morning), will set scale for PM dose up to ~30% reduction from yesterday given fasting 110 mg/dL today and patient is NPO * Novolog parameters ~ weight/stress 2 or stress of 1 outpatient insulin dosing. Will continue for now. PLAN FOR INPATIENT GLYCEMIC CONTROL: * Hold outpatient oral diabetes medications * Basal insulin * Lantus 25 units SQ x1 this AM, scale 0-10 units for PM * Bolus insulin * NovoLog per scale ACHS or Q6hrs while NPO * Goal Range: Low 110 mg/dL - High 140 mg/dL * Correction Factor: 15 mg/dL/unit * Nutritional / Prandial insulin per carb ratio of 1 unit per 7 grams CHO consumed
[2024-12-27] MEDS: METOPROLOL TARTRATE 1 MG/ML VIAL IV SCH (14:28)
[2024-12-27] MEDS: ATORVASTATIN 40 MG TAB PO SCH (21:08)
[2024-12-27] MEDS: ACETAMINOPHEN 1,000 MG/100 ML VIAL IV PRN (21:59)
[2024-12-28 08:05] LABS: Hematocrit (blood only) 40.1 % (37.0-47.0); Mean Corpuscular Hemoglobin 29.7 pg (25.0-34.0); Mean Corpuscular Hgb Conc 32.4 g/dL (32.0-36.0); Mean Corpuscular Volume 91.8 fL (80.0-100.0); Mean Platelet Volume 10.7 fL (9.4-12.4); Platelet Count 335 K/uL (130-400); RDW Coefficient of Variation 15.9 % (11.5-14.5); RDW Standard Deviation 52.9 fL (36.4-46.3); Red Blood Count 4.37 M/uL (4.20-5.40); White Blood Count 11.55 K/ul (4.8-10.8)
[2024-12-28 08:11] LABS: BUN Creatinine Ratio 18.8 (10-20); Calcium 7.8 mg/dl (8.6-10.3); Creatinine Clr Calc Pharmacy 116.2 ml/min; Magnesium 2.1 mg/dl (1.7-2.4); Phosphorus 3.6 mg/dl (2.5-4.9); Potassium 3.5 mmol/L (3.5-5.1)
[2024-12-28] MEDS: POTASSIUM CHLORIDE / WTR 10 MEQ/100 ML PLCT IV SCH (09:25)
--- NOTE | 2024-12-28 09:29 | XRay Report ---
KUB HISTORY: sbo COMPARISON STUDY: 12/27/2024. FINDINGS: Prior nasogastric tube is no longer seen. Stable right upper quadrant surgical clips. There is mild small bowel distention at the upper abdomen and in the region of the known ventral hernia me asuring up to 3 cm diameter, improved. No other bowel distention seen. No gross free air seen. IMPRESSION: Persistent mild small bowel distention, improved. ACT 112: Negative or not required by law. The above report was generated using voice recognition software. It may contain grammatical, syntax o r spelling errors. Electronically signed by: Oskar Kaufman M.D. 12/28/2024 9:28 AM
--- NOTE | 2024-12-28 09:47 | Surgery Progress Note ---
Date of Service December 28, 2024 Assessment & Plan (1) SBO (small bowel obstruction): Plan: She started having bowel movements and has no abdominal pain Will trial clear liquids today, can advance as tolerated If she continues to do well without abdominal pain and tolerates her diet, she can be discharged from a surgical standpoint later today, but more likely tomorrow Surgery will follow along Admission and Anticipated Discharge Date Admission Date: December 27, 2024 Subjective Patient seen and examined. Denies abdominal pain. Had 3 bowel movements overnight. NG tube got dislodged overnight. Review of Systems Constitutional: no fever and no chills Respiratory: no cough and no dyspnea Cardiovascular: no chest pain and no dyspnea on exertion Gastrointestinal: no abdominal pain, no nausea and no vomiting Genitourinary: no dysuria and no urinary urgency Integumentary: no acne, no sores and no erythema Neurologic: no headache(s) and no confusion Psychiatric: no behavioral changes and no depression Physical Exam Constitutional: WD/WN, vitals as above Eyes: PERRL, conjunctivae normal, anicteric sclerae Neck: trachea midline, no thyromegaly Respiratory: normal respiratory effort, lungs clear to auscultation Cardiovascular: RRR, no murmur, no edema Gastrointestinal (Abdomen): Inspection/Auscultation: abdomen normal to inspection; abdomen not distended Percussion/Palpation: abdomen soft; abdomen nontender and no guarding Musculoskeletal: no cyanosis or clubbing, extremities motor strength 5/5 Skin: no rashes, warm and dry Psychiatric: A+Ox3, euthymic affect Results & Data Vital Signs (Past 12 Hours) Vital Signs Temp Pulse Pulse Resp BP BP BP 12/28/24 08:32 86 12/28/24 07:34 36.8 C 94 H 20 131/74 12/28/24 07:25 12/28/24 07:20 85 15 12/28/24 02:47 36.8 C 88 18 119/71 12/27/24 23:56 93 H 125/75 12/27/24 22:22 36.9 C 88 18 135/77 Pulse Ox O2 Del Method O2 Flow Rate FiO2 12/28/24 08:32 12/28/24 07:34 90 Room Air 12/28/24 07:25 Nasal Cannula 2 12/28/24 07:20 94 Room Air 21 12/28/24 02:47 96 Nasal Cannula 2 12/27/24 23:56 12/27/24 22:22 97 Nasal Cannula 2 PG Care Time/CCT Total # of Minutes Spent Total Time Spent with Patient: Total time spent is greater than 50% in coordination of care (as documented) at patient's floor/unit and/or counseling patient: Coding Level of Care Code 89767 SUB INP/OBS CARE 2/35MIN Diagnoses SBO (small bowel obstruction) K56.609
--- NOTE | 2024-12-28 12:16 | Hospitalist Progress Note ---
Date of Service December 28, 2024 Assessment & Plan (1) SBO (small bowel obstruction): Plan: This is a 69-year-old female with past medical history significant for hypothyroidism, hyperlipidemia, idiopathic chronic gout of multiple sites, polycystic ovarian syndrome, type 2 diabetes, ovarian cancer in remission, COPD, obstructive sleep apnea, chronic atrial fibrillation, hypertension, morbid obesity, GERD, CKD stage III, benign paroxysmal positional vertigo, depression with anxiety presents nausea and vomiting and abdominal pain and found to have small bowel obstruction. Patient was recently in the hospital with small bowel obstruction and improved with conservative measures and was discharged. She had a follow-up appointment with PCP yesterday. After coming from PCP office patient was having lot of nausea and vomitings. Her abdominal pain was 7/10 in severity. She had small bowel movement yesterday. Stool was dark brown color. Last bowel movement prior to yesterday was on Tuesday. She is not eating or drinking much since discharge. Micturating not much. Denies any headache. No runny nose or sore throat. Vision is okay. No cough. No chest pain or shortness of breath. Hemodynamics are stable. Small bowel obstruction Recurrent NG tube placement but was dislodged overnight Had 3 bowel movements today IV fluids, pain control, IV antiemetics as needed Will hold Pradaxa for now Surgery consulted in AM for further recommendations - advanced to clears for lunch but developed abd pain. IV fluids, advance as tolerated Obstructive sleep apnea On BiPAP nightly at home Leukocytosis Follow UA Follow repeat labs Hypothyroidism On levothyroxine Diabetes Will cut back on Lantus to 25 units twice daily as patient currently n.p.o. Sliding scale Glycemic pharmacy consult Close monitor History of A-fib Continue Cardizem and metoprolol Holding Pradaxa Will monitor History of ovarian cancer S/p surgery and in remission Ventral hernia. Monitor for obstruction Gout On allopurinol Hyperlipidemia On statin and gemfibrozil GERD On famotidine Hypertension On Cardizem and Lopressor Will monitor DVT prophylaxis: SCDs for now Code: FULL Disposition: admitted to Med/telemetry Care coordinated with Dr. Eduardo. I spent a total of 50minutes coordinating, documenting, and providing care for this patient excluding time spent in the performance of separately billed services or time spent by another provider/QHP. Admission and Anticipated Discharge Date Admission Date: December 27, 2024 Supervising Physician Co-Signing Physician Notes Pt seen and examined by id , care coordinated w/ Gunnar BARDALES, pls refer to her note above for further detail. Pt admitted for SBO, had NGT placed in ED. Overnight NGT dislodged, pt had 2 BMs and felt better. Started on clear liquid diet and unfortunately now does not feel well and has abdominal discomfort. lungs CTAB, heart sounds regular. she is awake, alert , oriented. Pt seen by gen. surgery team, continue conservative management. MD Jayce Subjective Seen and examined in [id number]. NG tube was dislodged overnight while patient was sleeping. No abdominal pain and had 3 small bowel movements overnight and into this morning. No F/C, lightheadedness, CP, SOB, N/V, abd pain, dysuria. Review of Systems Review of Systems: At least ten systems reviewed and negative except as noted in the HPI. Physical Exam Physical Exam: Gen: WD/WN, NAD, sitting in bedside chair, morbidly obese, A&Ox3 HEENT: Normocephalic, atraumatic, conjunctivae moist, sclerae anicteric, mucous membranes moist Lung: Clear to Auscultation bilaterally, no wheezes/rales/rhonchi Heart: Regular rate, regular rhythm Abdomen: Soft, +palpable large R sided hiatal hernia, NT, ND +BS Extremities: no edema Skin: Warm, no rash Results & Data Results & Data Vital Signs (Past 12 Hours) Vital Signs Temp Pulse Pulse Resp BP Pulse Ox O2 Del Method 12/28/24 11:32 36.9 C 87 20 170/70 H 92 Room Air 12/28/24 08:32 86 12/28/24 07:34 36.8 C 94 H 20 131/74 90 Room Air 12/28/24 07:25 Nasal Cannula 12/28/24 07:20 85 15 94 Room Air 12/28/24 02:47 36.8 C 88 18 119/71 96 Nasal Cannula O2 Flow Rate FiO2 12/28/24 11:32 12/28/24 08:32 12/28/24 07:34 12/28/24 07:25 2 12/28/24 07:20 21 12/28/24 02:47 2 Laboratory Results Short CBC 12/28/24 Range/Units 07:30 WBC 11.55 H (4.8-10.8) K/ul Hgb 13.0 (12.0-16.0) g/dl Hct 40.1 (37.0-47.0) % Plt Count 335 (130-400) K/uL BMP 12/28/24 07:30 Sodium 141 Potassium 3.5 Chloride 108 H Carbon Dioxide 27 BUN 12 Creatinine 0.64 Glucose 87 Calcium 7.8 L Diagnostic Findings Abdomen/Pelvis CT 12/27/24 00:05 EXAM: CT abd pelvis IV con only CLINICAL HISTORY: hx SBO, pain, no BM TECHNIQUE: Multiple contiguous axial images were obtained from the level of diaphragm to the pubis symphysis. This study was acquired after the IV administration of iodinated contrast material, given the patient's indications for the examination. If IV contrast material had not been administered, the likelihood of detecting abnormalities relevant to the patient's condition would have been substantially decreased. Coronal and sagittal reformatted images were generated and reviewed to improve anatomic localization and optimize lesion detection. CT scan was performed according to ALARA (as low as reasonably achievable). COMPARISON: Ct, 12/17/2024 16:50:00 BANQUET BARTENDER FINDINGS: The visualized lung bases are clear. ABDOMEN/PELVIS: Lax anterior abdominal wall seen. Defect in right paramedian anterior abdominal wall at epigastric region with herniation of large bowel loop(mid transverse colon segment). The defect measures about 2.5x3.3cm(TRxCC). Another large defect seen in right paramedian anterior upper abdominal wall below the upper defect, measuring 6x5.3cm(TRxCC) with herniation of small bowell loops and its mesentery. The herniated bowel loops are distended with interbowel fluid within the heniated sac. Secondarily there is dilatation od rest of small bowel loops with multiple sir fluid levels, maximum diameter of dilated loops- 4.5cm. Multiple small diverticuli of 2mm seen in sigmoid and descending colon. No inflammatory changes. The liver is normal in size and attenuation. No focal liver lesions are seen. There is no intra or extrahepatic biliary ductal dilatation. Hepatic vasculature is patent. Post cholecystectomy status. The spleen, pancreas, and adrenal glands are unremarkable. The kidneys are normal in size and attenuation. There is no hydronephrosis or perinephric fat stranding. No renal calculi or renal masses are identified. Few simple cortical cysts seen in bilateral kidneys of average size 8-12mm. The ureters are normal in caliber and no ureteral calculi are seen. The bladder is normal in contour. The appendix is not visualized . Post hysterectomy status. No adenopathy or fluid collections are seen. The aorta is normal in caliber. No aggressive appearing osseous lesions are identified. IMPRESSION: 1. Right paramedian anterior upper abdominal wall hernia with herniated small bowel loops , secondarily complicated by acute small bowel obstruction. 2. An uncomplicated right paramedian anterior upper abdominal wall epigastric hernia with herniation of large bowel loop(mid transverse colon segment). 3. Uncomplicated sigmoid and descending colon diverticulosis. 4. Few bilateral renal simple cortical cysts 5. No interval changes. No pneumoperitoneum. The obstruction is still persistent. Electronically signed by Isra Damico 12-27-2024 01:31 AM KUB X-Ray 12/27/24 01:40 EXAM: XR KUB/Abdomen 1 view CLINICAL HISTORY: post NG tueb placement TECHNIQUE: X-ray image of the upper abdomen were obtained in AP view. COMPARISON: No prior studies available for comparison. FINDINGS: NG tube noted with its distal end at the left upper abdomen, corresponding to the gastric region. IMPRESSION: NG tube noted at gastric region. Electronically signed by Tucker Navarro 12-27-2024 02:55 AM KUB X-Ray 12/28/24 07:30 KUB HISTORY: sbo COMPARISON STUDY: 12/27/2024. FINDINGS: Prior nasogastric tube is no longer seen. Stable right upper quadrant surgical clips. There is mild small bowel distention at the upper abdomen and in the region of the known ventral hernia measuring up to 3 cm diameter, improved. No other bowel distention seen. No gross free air seen. IMPRESSION: Persistent mild small bowel distention, improved. ACT 112: Negative or not required by law. The above report was generated using voice recognition software. It may contain grammatical, syntax or spelling errors. Electronically signed by: Oskar Kaufman M.D. 12/28/2024 9:28 AM
[2024-12-28] MEDS: INSULIN ASPART PER UNIT CHARGE SC SCH (12:31)
--- NOTE | 2024-12-28 13:18 | Pharmacy Report ---
Pharmacy Glycemic Short Note 2 - Date of Service December 28, 2024 - Glycemic Short BSG Results (Last 24 hours): 12/27/24 12/27/24 12/28/24 17:53 20:20 00:28 Glucose POC Glucose 89 90 75 12/28/24 12/28/24 12/28/24 04:57 07:30 12:08 Glucose 87 POC Glucose 71 101 H OUTPATIENT ANTIDIABETIC REGIMEN: * Lantus 50 units BID, Humalog 15 units with meals (per 12/20 discharge) * A1c 5.8% 12/18/24 ASSESSMENT: 12/28: * Patient received a total of 25 units of SQ insulin yesterday - all basal, no bolus. Majority of BSGs have been below goal range since admission. * Diet advanced to clear liquid today. Continue current Lantus order per BSG scale. May need to be increased with diet advancement, however hesitant to increase at this time given BSG remains below goal. 12/27: * Patient admitted with SBO, conservative management for now, NPO * Received 25 units of lantus this AM, this is ~50% of patients dose she received yesterday (reported 50 units in the morning), will set scale for PM dose up to ~30% reduction from yesterday given fasting 110 mg/dL today and patient is NPO * Novolog parameters ~ weight/stress 2 or stress of 1 outpatient insulin dosing. Will continue for now. PLAN FOR INPATIENT GLYCEMIC CONTROL: * Hold outpatient oral diabetes medications * Basal insulin * Lantus 0-10 units SC BID * Bolus insulin * NovoLog per scale ACHS or Q6hrs while NPO * Goal Range: Low 110 mg/dL - High 140 mg/dL * Correction Factor: 30 mg/dL/unit * Nutritional / Prandial insulin per carb ratio of 1 unit per 7 grams CHO consumed
[2024-12-28] MEDS: THIAMINE HCL 100 MG in SYRINGE 9 ML IV SCH (14:28)
[2024-12-28] MEDS: D5W AND 1/2NSS + 20MEQ KCL 20 MEQ/1,000 ML BAG IV SCH (14:29)
[2024-12-29] MEDS: ACETAMINOPHEN 325 MG TAB PO PRN (01:25)
[2024-12-29 06:18] LABS: Hematocrit (blood only) 39.9 % (37.0-47.0); Mean Corpuscular Hemoglobin 30.4 pg (25.0-34.0); Mean Corpuscular Hgb Conc 32.6 g/dL (32.0-36.0); Mean Corpuscular Volume 93.4 fL (80.0-100.0); Mean Platelet Volume 10.8 fL (9.4-12.4); Platelet Count 350 K/uL (130-400); RDW Coefficient of Variation 15.9 % (11.5-14.5); RDW Standard Deviation 54.5 fL (36.4-46.3); Red Blood Count 4.27 M/uL (4.20-5.40); White Blood Count 9.18 K/ul (4.8-10.8)
[2024-12-29 06:36] LABS: BUN Creatinine Ratio 13.8 (10-20); Calcium 8.2 mg/dl (8.6-10.3); Creatinine Clr Calc Pharmacy 125.4 ml/min; Magnesium 1.9 mg/dl (1.7-2.4); Phosphorus 2.5 mg/dl (2.5-4.9); Potassium 3.4 mmol/L (3.5-5.1)
[2024-12-29] MEDS ORDERED: POTASSIUM PHOS 3 MMOL/1 ML INFUSION IV STA (07:45)
[2024-12-29] MEDS: POTASSIUM CHLORIDE / WTR 10 MEQ/100 ML PLCT IV SCH (08:11)
[2024-12-29] MEDS: POTASSIUM PHOSPHATE 6 MMOL in SODIUM CHLORIDE 0.9% 100 ML IV ONE (08:26)
--- NOTE | 2024-12-29 11:09 | Surgery Progress Note ---
Date of Service December 29, 2024 Assessment & Plan (1) SBO (small bowel obstruction): Plan: She started having bowel movements and has no abdominal pain Will trial Full liquids today, can advance as tolerated If she continues to do well without abdominal pain and tolerates her diet, she can be discharged from a surgical standpoint later today Surgery will follow along Admission and Anticipated Discharge Date Admission Date: December 27, 2024 Subjective feeling well this morning. No abdominal pain. No nausea or vomiting. She did not do well with the clears last night, but she states that is because she did not like the taste of the liquids. Physical Exam Gastrointestinal (Abdomen): Inspection/Auscultation: abdomen normal to inspection; abdomen not distended Percussion/Palpation: abdomen soft; abdomen nontender and no guarding Results & Data Vital Signs (Past 12 Hours) Vital Signs Temp Pulse Pulse Resp BP Pulse Ox O2 Del Method 12/29/24 08:25 Nasal Cannula 12/29/24 08:00 36.6 C 84 20 124/79 97 Room Air 12/29/24 07:17 78 16 98 Nasal Cannula 12/29/24 06:45 71 12/29/24 04:18 36.9 C 83 20 148/72 H 97 Room Air 12/28/24 23:51 36.7 C 86 20 149/70 H 95 Room Air O2 Flow Rate 12/29/24 08:25 2 12/29/24 08:00 12/29/24 07:17 2 12/29/24 06:45 12/29/24 04:18 12/28/24 23:51
--- NOTE | 2024-12-29 11:29 | Hospitalist Progress Note ---
Date of Service December 29, 2024 Assessment & Plan (1) SBO (small bowel obstruction): Plan: This is a 69-year-old female with past medical history significant for hypothyroidism, hyperlipidemia, idiopathic chronic gout of multiple sites, polycystic ovarian syndrome, type 2 diabetes, ovarian cancer in remission, COPD, obstructive sleep apnea, chronic atrial fibrillation, hypertension, morbid obesity, GERD, CKD stage III, benign paroxysmal positional vertigo, depression with anxiety presents nausea and vomiting and abdominal pain and found to have small bowel obstruction. Patient was recently in the hospital with small bowel obstruction and improved with conservative measures and was discharged. She had a follow-up appointment with PCP yesterday. After coming from PCP office patient was having lot of nausea and vomitings. Her abdominal pain was 7/10 in severity. She had small bowel movement yesterday. Stool was dark brown color. Last bowel movement prior to yesterday was on Tuesday. She is not eating or drinking much since discharge. Micturating not much. Denies any headache. No runny nose or sore throat. Vision is okay. No cough. No chest pain or shortness of breath. Hemodynamics are stable. Small bowel obstruction Recurrent in setting of large known ventral hernia, follows with gen surgery in [place] - will need follow up NG tube placed and since removed Having small liquid bowel movements Surgery consulted - advancing to full liquids, can be discharged from a surgical standpoint once tolerating diet and no abd pain Obstructive sleep apnea On BiPAP nightly at home Abnormal UA Recently completed tx for UTI No symptoms, will monitor for now Repeat culture pending Hypothyroidism On levothyroxine Diabetes Will cut back on Lantus to 25 units twice daily as patient currently n.p.o. Sliding scale Glycemic pharmacy consult Close monitor History of A-fib Continue Cardizem and metoprolol Pradaxa resumed today History of ovarian cancer S/p surgery and in remission Ventral hernia. Monitor for obstruction Gout On allopurinol Hyperlipidemia On statin and gemfibrozil GERD On famotidine Hypertension On Cardizem and Lopressor Will monitor DVT prophylaxis: Pradaxa resumed Code: FULL Disposition: admitted to Med/telemetry Care coordinated with Dr. Eduardo. I spent a total of 40 minutes coordinating, documenting, and providing care for this patient excluding time spent in the performance of separately billed services or time spent by another provider/QHP. Admission and Anticipated Discharge Date Admission Date: December 27, 2024 Supervising Physician Co-Signing Physician Notes Pt seen and examined by ga , care coordinated w/ Gunnar BARDALES, pls refer to her note above for further detail. Pt admitted for SBO, had NGT placed in ED. NGT since then removed, having BMs and feeling better. Started on clear liquid diet, initially did not feel well yesterday but now tolerating. She does not have abdominal discomfort. lungs CTAB, heart sounds regular. she is awake, alert , oriented. Pt seen by gen. surgery team, plan to advance diet. MD Jayce Subjective Seen and examined in 262-1. Feeling well today. Denies any nausea or abdominal pain. Had 3 small liquid bowel movements overnight. Tolerating water and [place]. No F/C, CP, SOB. Review of Systems Review of Systems: At least ten systems reviewed and negative except as noted in the HPI. Physical Exam Physical Exam: Gen: WD/WN, NAD, sitting in bedside chair, morbidly obese, A&Ox3 HEENT: Normocephalic, atraumatic, conjunctivae moist, sclerae anicteric, mucous membranes moist Lung: Clear to Auscultation bilaterally, no wheezes/rales/rhonchi Heart: Regular rate, regular rhythm Abdomen: Soft, +palpable large R sided hiatal hernia, NT, ND +BS Extremities: no edema Skin: Warm, no rash Results & Data Results & Data Vital Signs (Past 12 Hours) Vital Signs Temp Pulse Pulse Resp BP Pulse Ox O2 Del Method 12/29/24 11:20 69 18 95 Room Air 12/29/24 08:25 Nasal Cannula 12/29/24 08:00 36.6 C 84 20 124/79 97 Room Air 12/29/24 07:17 78 16 98 Nasal Cannula 12/29/24 06:45 71 12/29/24 04:18 36.9 C 83 20 148/72 H 97 Room Air 12/28/24 23:51 36.7 C 86 20 149/70 H 95 Room Air O2 Flow Rate 12/29/24 11:20 12/29/24 08:25 2 12/29/24 08:00 12/29/24 07:17 2 12/29/24 06:45 12/29/24 04:18 12/28/24 23:51 Laboratory Results Short CBC 12/29/24 Range/Units 05:41 WBC 9.18 (4.8-10.8) K/ul Hgb 13.0 (12.0-16.0) g/dl Hct 39.9 (37.0-47.0) % Plt Count 350 (130-400) K/uL BMP 12/29/24 05:41 Sodium 138 Potassium 3.4 L Chloride 108 H Carbon Dioxide 27 BUN 8 Creatinine 0.58 L Glucose 142 H Calcium 8.2 L Diagnostic Findings Abdomen/Pelvis CT 12/27/24 00:05 EXAM: CT abd pelvis IV con only CLINICAL HISTORY: hx SBO, pain, no BM TECHNIQUE: Multiple contiguous axial images were obtained from the level of diaphragm to the pubis symphysis. This study was acquired after the IV administration of iodinated contrast material, given the patient's indications for the examination. If IV contrast material had not been administered, the likelihood of detecting abnormalities relevant to the patient's condition would have been substantially decreased. Coronal and sagittal reformatted images were generated and reviewed to improve anatomic localization and optimize lesion detection. CT scan was performed according to ALARA (as low as reasonably achievable). COMPARISON: Ct, 12/17/2024 16:50:00 CULL GRADER FINDINGS: The visualized lung bases are clear. ABDOMEN/PELVIS: Lax anterior abdominal wall seen. Defect in right paramedian anterior abdominal wall at epigastric region with herniation of large bowel loop(mid transverse colon segment). The defect measures about 2.5x3.3cm(TRxCC). Another large defect seen in right paramedian anterior upper abdominal wall below the upper defect, measuring 6x5.3cm(TRxCC) with herniation of small bowell loops and its mesentery. The herniated bowel loops are distended with interbowel fluid within the heniated sac. Secondarily there is dilatation od rest of small bowel loops with multiple sir fluid levels, maximum diameter of dilated loops- 4.5cm. Multiple small diverticuli of 2mm seen in sigmoid and descending colon. No inflammatory changes. The liver is normal in size and attenuation. No focal liver lesions are seen. There is no intra or extrahepatic biliary ductal dilatation. Hepatic vasculature is patent. Post cholecystectomy status. The spleen, pancreas, and adrenal glands are unremarkable. The kidneys are normal in size and attenuation. There is no hydronephrosis or perinephric fat stranding. No renal calculi or renal masses are identified. Few simple cortical cysts seen in bilateral kidneys of average size 8-12mm. The ureters are normal in caliber and no ureteral calculi are seen. The bladder is normal in contour. The appendix is not visualized . Post hysterectomy status. No adenopathy or fluid collections are seen. The aorta is normal in caliber. No aggressive appearing osseous lesions are identified. IMPRESSION: 1. Right paramedian anterior upper abdominal wall hernia with herniated small bowel loops , secondarily complicated by acute small bowel obstruction. 2. An uncomplicated right paramedian anterior upper abdominal wall epigastric hernia with herniation of large bowel loop(mid transverse colon segment). 3. Uncomplicated sigmoid and descending colon diverticulosis. 4. Few bilateral renal simple cortical cysts 5. No interval changes. No pneumoperitoneum. The obstruction is still persistent. Electronically signed by Isra Damico 12-27-2024 01:31 AM KUB X-Ray 12/27/24 01:40 EXAM: XR KUB/Abdomen 1 view CLINICAL HISTORY: post NG tueb placement TECHNIQUE: X-ray image of the upper abdomen were obtained in AP view. COMPARISON: No prior studies available for comparison. FINDINGS: NG tube noted with its distal end at the left upper abdomen, corresponding to the gastric region. IMPRESSION: NG tube noted at gastric region. Electronically signed by Tucker Navarro 12-27-2024 02:55 AM KUB X-Ray 12/28/24 07:30 KUB HISTORY: sbo COMPARISON STUDY: 12/27/2024. FINDINGS: Prior nasogastric tube is no longer seen. Stable right upper quadrant surgical clips. There is mild small bowel distention at the upper abdomen and in the region of the known ventral hernia measuring up to 3 cm diameter, improved. No other bowel distention seen. No gross free air seen. IMPRESSION: Persistent mild small bowel distention, improved. ACT 112: Negative or not required by law. The above report was generated using voice recognition software. It may contain grammatical, syntax or spelling errors. Electronically signed by: Oskar Kaufman M.D. 12/28/2024 9:28 AM
[2024-12-29] MEDS: ENOXAPARIN INJ 40 MG/0.4 ML SYR SQ SCH (11:55)
[2024-12-29] MEDS: DABIGATRAN ETEXILATE 75 MG CAP PO SCH (12:36)
[2024-12-30 06:31] LABS: Hematocrit (blood only) 40.5 % (37.0-47.0); Hemoglobin 13.1 g/dl (12.0-16.0); Mean Corpuscular Hemoglobin 30.5 pg (25.0-34.0); Mean Corpuscular Hgb Conc 32.3 g/dL (32.0-36.0); Mean Corpuscular Volume 94.4 fL (80.0-100.0); Mean Platelet Volume 10.6 fL (9.4-12.4); Platelet Count 373 K/uL (130-400); RDW Coefficient of Variation 16.1 % (11.5-14.5); RDW Standard Deviation 55.4 fL (36.4-46.3); Red Blood Count 4.29 M/uL (4.20-5.40); White Blood Count 10.03 K/ul (4.8-10.8)
[2024-12-30 06:56] LABS: BUN Creatinine Ratio 10.9 (10-20); Calcium 8.5 mg/dl (8.6-10.3); Creatinine Clr Calc Pharmacy 133.2 ml/min; Magnesium 1.9 mg/dl (1.7-2.4); Phosphorus 3.4 mg/dl (2.5-4.9); Potassium 3.8 mmol/L (3.5-5.1)
--- NOTE | 2024-12-30 07:14 | Hospitalist Progress Note ---
Date of Service December 30, 2024 Assessment & Plan (1) SBO (small bowel obstruction): Plan: Connie Araujo is a 69/o F with PMHx significant for hypothyroidism, HLD, idiopathic chronic gout of multiple sites, PCOS, DMII, history ovarian cancer s/p right adnexal mass resection in 2019 - currently in remission, COPD, NAVI on 2L via NC HS, chronic atrial fibrillation anticoagulated on Pradaxa, HTN, morbid obesity, GERD, CKD stage IIIa, BPPV and depression with anxiety who presented to the ED on 12/27/2024 with complaints of N/V plus abdominal pain and was found to have a recurrent SBO ISO known large ventral hernia. Followed with a general surgeon in [place] previously; currently in the process of meeting a new general surgeon at [facility] to address her ventral hernia. Previously had NGT in place which has since been removed. Appreciate general surgery consult. Starting to pass some BMs. Advanced to carb consistent, low fiber diet today which she is tolerating well. (2) Abnormal urinalysis: Plan: Recently completed treatment for a UTI. Urine culture growing Winnie albicans/dubliniensis however patient is asymptomatic. Likely represents colonization rather than infection. No indication to treat at this time. (3) T2DM (type 2 diabetes mellitus): Plan: Hold home agents, basal/bolus insulin regimen while inpatient. Continue BSG checks ACHS. Hgb A1c 5.7% this admission. Appreciate glycemic pharmacy assistance. (4) Chronic atrial fibrillation: Plan: Continue Cardizem, Lopressor and Pradaxa. (5) History of ovarian cancer: Plan: S/p total abdominal hysterectomy and currently in remission. Other Chronic Medical Conditions: Hypothyroidism - Continue levothyroxine. Gout - Continue allopurinol. HLD - Continue statin and gemfibrozil. GERD - Continue Pepcid. HTN - BP remains stable. Continue Cardizem and Lopressor. 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 Code Status: FULL CODE PCP: Mohsen Vazquez MD Disposition: Likely discharge home tomorrow. Discussed potential discharge home today however patient would like to be monitored in the hospital following the initial advancement of her diet which I think is reasonable for her given the recurrence of this issue. Patient seen in collaboration with Dr. Eduardo. Please see addendum. I spent a total of 40 minutes coordinating, documenting, and providing care for this patient excluding time spent in the performance of separately billed services or time spent by another provider/QHP. This included personally reviewing all current laboratories and imaging studies, medical reconciliation, outpatient chart review and discussion with specialists. This chart was completed in part utilizing Speech Voice Recognition Software. Grammatical errors, random word insertions, pronoun errors, and incomplete sentences are an occasional consequence of this system due to software limitations, ambient noise, and hardware issues. Any formal questions or concerns about the content, text, or information contained within the body of this dictation should be directly addressed to the provider for clarification. Admission and Anticipated Discharge Date Admission Date: December 27, 2024 Supervising Physician Co-Signing Physician Notes Pt seen and examined by me , care coordinated w/ PA, pls refer to her note above for further detail. Pt admitted for SBO, had NGT placed in ED. NGT since then removed, having BMs and feeling better. No BM in last 24 hrs though. She is passing flatus and diet was advanced. She does not have any significant abdominal discomfort. lungs CTAB, heart sounds regular. she is awake, alert , oriented. Pt followed by gen. surgery team as well. MD Jayce Subjective Patient seen and examined in room W262-1. NAEO. Feeling improved today. Tolerating advanced diet. Denies any N/V. Still experiences some lower abdominal pain around the site of her ventral hernia when she coughs. Denies any SOB or chest pain. + passing gas. Last BM was 2 days and loose in nature. Review of Systems Review of Systems: At least ten systems reviewed and negative, except as noted in the subjective section. Physical Exam Physical Exam: General: Morbidly obese F. Sitting up in recliner chair. Very pleasant. Conversing appropriately. A+Ox3. HEENT: Normocephalic, atraumatic. Conjunctivae normal. External ear and nose normal, oropharynx normal. Respiratory: Normal respiratory effort. Diminished lung sounds throughout. On RA. No accessory muscle use. Cardiovascular: Regular rate. Irregularly irregular rhythm. Normal peripheral pulses. No BLE edema. Abdomen/GI: + bowel sounds x all quadrants. Soft, nondistended. + palpable RLQ ventral hernia. Nontender to palpation in all quadrants. Extremities/Musculoskeletal: No cyanosis or clubbing. Extremities motor strength intact, actively moves all extremities. Neurologic: No overt focal deficits. CN's II-XI not formally tested but appear grossly intact bilaterally. Results & Data Results & Data Vital Signs (Past 12 Hours) Vital Signs Temp Pulse Pulse Resp BP Pulse Ox O2 Del Method 12/30/24 07:02 73 19 98 Room Air 12/30/24 06:45 46 L 12/30/24 04:07 36.9 C 52 L 20 114/65 94 Nasal Cannula 12/30/24 01:06 36.5 C 63 20 115/75 97 Nasal Cannula 12/29/24 21:55 Nasal Cannula 12/29/24 21:45 98 H 12/29/24 20:00 36.9 C 76 20 101/64 95 Nasal Cannula 12/29/24 19:57 63 20 97 Room Air O2 Flow Rate 12/30/24 07:02 12/30/24 06:45 12/30/24 04:07 2.5 12/30/24 01:06 2.5 12/29/24 21:55 2 12/29/24 21:45 12/29/24 20:00 2.5 12/29/24 19:57 Laboratory Results Short CBC 12/30/24 Range/Units 05:54 WBC 10.03 (4.8-10.8) K/ul Hgb 13.1 (12.0-16.0) g/dl Hct 40.5 (37.0-47.0) % Plt Count 373 (130-400) K/uL BMP 12/30/24 05:54 Sodium 139 Potassium 3.8 Chloride 108 H Carbon Dioxide 26 BUN 6 Creatinine 0.55 L Glucose 118 H Calcium 8.5 L Diagnostic Findings Abdomen/Pelvis CT 12/27/24 00:05 EXAM: CT abd pelvis IV con only CLINICAL HISTORY: hx SBO, pain, no BM TECHNIQUE: Multiple contiguous axial images were obtained from the level of diaphragm to the pubis symphysis. This study was acquired after the IV administration of iodinated contrast material, given the patient's indications for the examination. If IV contrast material had not been administered, the likelihood of detecting abnormalities relevant to the patient's condition would have been substantially decreased. Coronal and sagittal reformatted images were generated and reviewed to improve anatomic localization and optimize lesion detection. CT scan was performed according to ALARA (as low as reasonably achievable). 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 ABDOMEN/PELVIS: Lax anterior abdominal wall seen. Defect in right paramedian anterior abdominal wall at epigastric region with herniation of large bowel loop(mid transverse colon segment). The defect measures about 2.5x3.3cm(TRxCC). Another large defect seen in right paramedian anterior upper abdominal wall below the upper defect, measuring 6x5.3cm(TRxCC) with herniation of small bowell loops and its mesentery. The herniated bowel loops are distended with interbowel fluid within the heniated sac. Secondarily there is dilatation od rest of small bowel loops with multiple sir fluid levels, maximum diameter of dilated loops- 4.5cm. Multiple small diverticuli of 2mm seen in sigmoid and descending colon. No inflammatory changes. The liver is normal in size and attenuation. No focal liver lesions are seen. There is no intra or extrahepatic biliary ductal dilatation. Hepatic vasculature is patent. Post cholecystectomy status. The spleen, pancreas, and adrenal glands are unremarkable. The kidneys are normal in size and attenuation. There is no hydronephrosis or perinephric fat stranding. No renal calculi or renal masses are identified. Few simple cortical cysts seen in bilateral kidneys of average size 8-12mm. The ureters are normal in caliber and no ureteral calculi are seen. The bladder is normal in contour. The appendix is not visualized . Post hysterectomy status. No adenopathy or fluid collections are seen. The aorta is normal in caliber. No aggressive appearing osseous lesions are identified. IMPRESSION: 1. Right paramedian anterior upper abdominal wall hernia with herniated small bowel loops , secondarily complicated by acute small bowel obstruction. 2. An uncomplicated right paramedian anterior upper abdominal wall epigastric hernia with herniation of large bowel loop(mid transverse colon segment). 3. Uncomplicated sigmoid and descending colon diverticulosis. 4. Few bilateral renal simple cortical cysts 5. No interval changes. No pneumoperitoneum. The obstruction is still persistent. Electronically signed by Isra Damico 12-27-2024 01:31 AM KUB X-Ray 12/27/24 01:40 EXAM: XR KUB/Abdomen 1 view CLINICAL HISTORY: post NG tueb placement TECHNIQUE: X-ray image of the upper abdomen were obtained in AP view. COMPARISON: No prior studies available for comparison. FINDINGS: NG tube noted with its distal end at the left upper abdomen, corresponding to the gastric region. IMPRESSION: NG tube noted at gastric region. Electronically signed by Tucker Navarro 12-27-2024 02:55 AM KUB X-Ray 12/28/24 07:30 KUB HISTORY: sbo COMPARISON STUDY: 12/27/2024. FINDINGS: Prior nasogastric tube is no longer seen. Stable right upper quadrant surgical clips. There is mild small bowel distention at the upper abdomen and in the region of the known ventral hernia measuring up to 3 cm diameter, improved. No other bowel distention seen. No gross free air seen. IMPRESSION: Persistent mild small bowel distention, improved. ACT 112: Negative or not required by law. The above report was generated using voice recognition software. It may contain grammatical, syntax or spelling errors. Electronically signed by: Oskar Kaufman M.D. 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
[2024-12-31 06:43] LABS: Hematocrit (blood only) 39.4 % (37.0-47.0); Hemoglobin 12.8 g/dl (12.0-16.0); Mean Corpuscular Hemoglobin 30.4 pg (25.0-34.0); Mean Corpuscular Hgb Conc 32.5 g/dL (32.0-36.0); Mean Corpuscular Volume 93.6 fL (80.0-100.0); Mean Platelet Volume 10.8 fL (9.4-12.4); Platelet Count 351 K/uL (130-400); RDW Coefficient of Variation 15.9 % (11.5-14.5); RDW Standard Deviation 54.4 fL (36.4-46.3); Red Blood Count 4.21 M/uL (4.20-5.40); White Blood Count 9.49 K/ul (4.8-10.8)
--- NOTE | 2024-12-31 06:53 | Discharge Summary ---
Discharge Summary Date of Service December 31, 2024 Principal Dx & Hospital Course #1 = Principal Diagnosis (1) Ventral hernia: (2) SBO (small bowel obstruction): Connie Araujo is a 69/o F with PMHx significant for hypothyroidism, HLD, idiopathic chronic gout of multiple sites, PCOS, DMII, history ovarian cancer s/p right adnexal mass resection in 2019 - currently in remission, COPD, NAVI on 2L via [place] HS, chronic atrial fibrillation anticoagulated on Pradaxa, HTN, morbid obesity, GERD, CKD stage IIIa, BPPV and depression with anxiety who presented to the ED on 12/27/2024 with complaints of N/V plus abdominal pain and was found to have a recurrent SBO ISO known large ventral hernia. Saw and evaluated by general surgery. Initially required NGT for bowel decompression with resolution of her N/V. NGT subsequently removed. Did not require any surgical intervention. She was managed conservatively with gradual advancement to a low fiber diet which she is tolerating very well at time of discharge. Passing flatus and BMs. Discussed in length regarding benefits of low fiber diet for at least the next 4-6 weeks in order to prevent recurrence. Followed with a general surgeon in [place] previously; currently [facility] the [facility]. (3) Abnormal urinalysis: Recently completed treatment for a UTI. Urine culture growing Winnie albicans/dubliniensis however patient is asymptomatic. Likely represents colonization rather than infection. No indication to treat at this time. (4) T2DM (type 2 diabetes mellitus): Can resume home DM medication regimen on discharge. Hgb A1c 5.7% this admission. (5) Chronic atrial fibrillation: Continue Cardizem, Lopressor and Pradaxa. (6) History of ovarian cancer: S/p total abdominal hysterectomy and currently in remission. Other Chronic Medical Conditions: Hypothyroidism - Continue levothyroxine. Gout - Continue allopurinol. HLD - Continue statin and gemfibrozil. GERD - Continue Pepcid. HTN - Continue Cardizem and Lopressor. PCP: Mohsen Vazquez MD Disposition: Patient is being discharged home in good condition with close outpatient follow-up with both her PCP and general surgeon. Patient seen in collaboration with Dr. Eduardo. Please see addendum. I spent a total of 45 minutes coordinating, documenting, and providing care for this patient excluding time spent in the performance of separately billed services or time spent by another provider/QHP. This included personally reviewing all current laboratories and imaging studies, medical reconciliation, outpatient chart review and discussion with specialists. This chart was completed in part utilizing Speech Voice Recognition Software. Grammatical errors, random word insertions, pronoun errors, and incomplete sentences are an occasional consequence of this system due to software limitations, ambient noise, and hardware issues. Any formal questions or concerns about the content, text, or information contained within the body of this dictation should be directly addressed to the provider for clarification. Notes For Next Care Provider Need to arrange outpatient follow-up with patient's general surgeon through [facility] to address next steps regarding surgical intervention for her ventral hernia. Medication Changes From Visit No home medication changes were made during this admission. Admission HPI Per Admitting Provider 69-year-old female with past medical history significant for hypothyroidism, hyperlipidemia, idiopathic chronic gout of multiple sites, polycystic ovarian sy ndrome, type 2 diabetes, ovarian cancer in remission, COPD, obstructive sleep apnea, chronic atrial fibrillation, hypertension, morbid obesity, GERD, CKD stage III, benign paroxysmal positional vertigo, depression with anxiety presents nausea and vomiting and abdominal pain and found to have small bowel obstruction. Patient was recently in the hospital with small bowel obstruction and improved with conservative measures and was discharged. She had a follow-up appointment with PCP yesterday. After coming from PCP office patient was having lot of nausea and vomitings. Her abdominal pain was 7/10 in severity. She had small bowel movement yesterday. Stool was dark brown color. Last bowel movement prior to yesterday was on Tuesday. She is not eating or drinking much since discharge. Micturating not much. Denies any headache. No runny nose or sore throat. Vision is okay. No cough. No chest pain or shortness of breath. Hemodynamics are okay. Past medical history. As mentioned above. Past surgical history. Breast lesion excision left side. Dental surgery. Cholecystectomy. Bilateral debridement of skin and subcutaneous tissue.Extensive surgery for ovarian cancer in 2019 Social history. . Quit smoking 1976. Smoked for 1 year. Alcohol rarely. No drug use. Admission Exam Per Admitting Provider General-Noty in distress Head- atraumatic Eyes- PERRL. ENT- oropharynx clear Neck- supple, no JVD. Lungs- clear to auscultation no wheezing or crackles. Heart- regular rhythm; no murmur, no gallop. Abdomen- sluggish bowel sounds, soft, mild tenderness in left side of abdomen , no distension. Extremities- no pretibial edema, no erythema seen Neuro- alert, oriented PERRL, no facial palsy; no dysarthria; moves extremities Discharge Exam General: Morbidly obese F. Sitting up in recliner chair. Very pleasant. Conversing appropriately. A+Ox3. HEENT: Normocephalic, atraumatic. Conjunctivae normal. External ear and nose normal, oropharynx normal. Respiratory: Normal respiratory effort. Diminished lung sounds throughout. On RA. No accessory muscle use. Cardiovascular: Regular rate. Irregularly irregular rhythm. Normal peripheral pulses. No BLE edema. Abdomen/GI: + bowel sounds x all quadrants. Soft, nondistended. + palpable RLQ ventral hernia. Nontender to palpation in all quadrants. Extremities/Musculoskeletal: No cyanosis or clubbing. Extremities motor strength intact, actively moves all extremities. Neurologic: No overt focal deficits. CN's II-XI not formally tested but appear grossly intact bilaterally. Updated Medication List Medication Instructions Recorded Confirmed Type allopurinol 100 mg tablet 100 mg PO BID 09/28/18 12/27/24 History aspirin 81 mg tablet,delayed 81 mg PO QAM 09/28/18 12/27/24 History release (Tiara Low Dose Aspirin) atorvastatin 40 mg tablet 40 mg PO HS 09/28/18 12/27/24 History gemfibrozil 600 mg tablet 600 mg PO BID 09/28/18 12/27/24 History levothyroxine 112 mcg tablet 112 mcg PO QAM 09/28/18 12/27/24 History metoprolol tartrate 25 mg tablet 25 mg PO BID 09/28/18 12/27/24 History mometasone 50 mcg/actuation nasal 1 - 2 spray intranasal QAM 09/28/18 12/27/24 History spray diclofenac sodium 1 % topical gel 2 g topical QID 12/09/18 12/27/24 History albuterol sulfate 2.5 mg/3 mL 2.5 mg inhalation Q4H PRN Wheezing 02/19/19 12/27/24 History (0.083 %) solution for nebulization glucosamine 375 [id number] 1 tab PO BID 08/01/20 12/27/24 History no1 500 mg-C 15 mg-donald 0.5 mg tablet dabigatran etexilate 150 mg 150 mg PO BID #14 caps 04/17/22 12/27/24 Rx capsule (Pradaxa) pen needle, diabetic 31 gauge x #500 ea 11/07/23 12/07/24 Rx 5/16" (Clickfine Pen Needle) famotidine 20 mg tablet (Pepcid) 20 mg PO BID 11/10/23 12/27/24 History furosemide 40 mg tablet (Lasix) 40 mg PO BID PRN swelling 11/10/23 12/27/24 History diltiazem HCl 360 mg capsule,24 360 mg PO DAILY 03/23/24 12/27/24 History hr,extended release gabapentin 600 mg tablet 600 mg PO TID #270 tabs 08/01/24 12/27/24 Rx blood-glucose sensor (Dexcom G6 12/07/24 12/07/24 History Sensor device) insulin lispro 100 unit/mL See Rx Instructions .Route .COMPLEX 12/07/24 12/27/24 History subcutaneous pen (Humalog KwikPen (U-100) Insulin) albuterol sulfate 90 mcg/actuation 2 inh inhalation Q4H PRN Wheezing 12/17/24 12/27/24 History aerosol inhaler insulin glargine 100 unit/mL (3 50 unit subcut BID 12/17/24 12/27/24 History mL) subcutaneous pen (Lantus Solostar U-100 Insulin) ipratropium 20 mcg-albuterol 100 1 puff inhalation QID 12/17/24 12/27/24 History mcg/actuation mist for inhalation (Combivent Respimat) silver sulfadiazine 1 % topical 1 applic topical DAILY 12/17/24 12/27/24 History cream potassium chloride 20 mEq 20 meq PO BID PRN Take when you 12/20/24 12/27/24 Rx tablet,extended release take Lasix #30 tabs Lactobacillus acidophilus and 1 cap PO DAILY 12/27/24 12/27/24 History rhamnosus 15 billion cell capsule (Probiotic) ascorbic acid (vitamin C) 100 mg 100 mg PO DAILY 12/27/24 12/27/24 History tablet (Vitamin C) magnesium glycinate 100 mg (as 100 mg PO DAILY 12/27/24 12/27/24 History glycinate) tablet tirzepatide 10 mg/0.5 mL 10 mg subcut WK 12/27/24 12/27/24 History subcutaneous pen injector zinc gluconate 50 mg tablet 100 mg PO DAILY 12/27/24 12/27/24 History Hospital Stay Data Consultations 12/27/24 01:30 ED Decision to Admit Stat 12/27/24 08:00 Consult General Surgery Routine Diagnostic Imagining Performed 12/27/24 00:05 CT abd pelvis IV con only Stat 1. Right paramedian anterior upper abdominal wall hernia with herniated small bowel loops , secondarily complicated by acute small bowel obstruction. 2. An uncomplicated right paramedian anterior upper abdominal wall epigastric hernia with herniation of large bowel loop(mid transverse colon segment). 3. Uncomplicated sigmoid and descending colon diverticulosis. 4. Few bilateral renal simple cortical cysts 5. No interval changes. No pneumoperitoneum. The obstruction is still persistent. Discharge Instructions Given to Patient (Per Discharging Provider) Connie isis were admitted to [facility] with a recurrent small bowel obstruction in the setting of your underlying ventral hernia. You were seen and evaluated by general surgery. Thankfully you did not require any surgical intervention and were managed conservatively with slow advancement of your diet. Please continue a LOW FIBER DIET like we had discussed for at least the next 4-6 weeks. You have been provided with handouts regarding a low fiber diet. A low- fiber diet is often recommended for patients recovering from a small bowel obstruction because it helps reduce strain on the digestive system. Here are the saldana benefits: 1. Reduces Intestinal Workload Fiber adds bulk to stools, which can be difficult to pass through a narrowed or healing intestine. A low-fiber diet minimizes strain and allows the bowel to recover. 2. Prevents Blockage Recurrence High-fiber foods, such as raw vegetables, whole grains, and nuts, can form bulkier stools and increase the risk of another obstruction. A low-fiber diet helps prevent further blockages. 3. Decreases Gas and Bloating Fiber-rich foods can cause gas and bloating, which may lead to discomfort or distension. A low-fiber diet reduces these symptoms, making digestion easier. 4. Promotes Easier Digestion Foods low in fiber are generally easier to digest, allowing the small intestine to heal without excessive stimulation. 5. Helps Control Diarrhea High-fiber foods can increase bowel movements, leading to diarrhea. A low-fiber diet can help regulate stool consistency and prevent excessive diarrhea. Expect changes in bowel habits as your intestines recover. If you experience constipation, drink more fluids and walk around to help stimulate bowel movements. Avoid straining during bowel movements. Seek medical attention immediately if you experience any of the following: * Severe or worsening abdominal pain. * Inability to pass gas or stool for more than 24 hours. * Nausea or vomiting that doesnt stop. * Fever over 100.4F (38C). * Signs of dehydration (dry mouth, dizziness, decreased urination). RECOMMENDATIONS FOR FOLLOW-UP Please contact your general surgeon through [facility] for a follow-up appointment to discuss next steps with your ventral hernia surgery. Date & Time: 01/02/2025 @ 3:20 PM Provider: Mohsen Vazquez MD Location: [facility] Please take good care of yourself! It has been a pleasure taking care of you. If you have any questions regarding your recent hospitalization please contact [facility] and request [facility] Hospitalist @ [phone]. Total Time Total Time Spent Total Time Spent (In Minutes): 45 Supervising Physician Co-Signing Physician Notes Pt seen and examined by me , care coordinated w/ PA, pls refer to her note above for further detail. Pt admitted for SBO, had NGT placed in ED. NGT since then removed, having BMs and feeling better. Tolerating diet. She does not have any abdominal pain. lungs CTAB, heart sounds regular. she is awake, alert , oriented. Pt followed by gen. surgery team as well while inpt. Pt needs to follow up with surgery as outpt for her hernia repair. MD Jayce
[2024-12-31 07:14] LABS: Calcium 8.7 mg/dl (8.6-10.3); Creatinine Clr Calc Pharmacy 97.6 ml/min; Magnesium 1.8 mg/dl (1.7-2.4)
[2024-12-31] MEDS: LANTUS PER UNIT CHARGE SC SCH (09:45)
[2024-12-31 10:33] VITALS: RESP 18
[2024-12-31 11:08] VITALS: TEMP 98.1; O2SAT 93
[2024-12-31 11:32] VITALS: BP 124/77; PULSE 62
== END 2024-12-31 14:28 | disposition home or self-care (01) | DRG 394 ==
LOC: ED 23:53 → EDINP 12-27 01:46 → 2W 12-27 03:28

== ENCOUNTER 2025-03-31 03:47 | Inpatient (IN) ==
--- NOTE | 2025-03-31 03:55 | Emergency Department Note ---
Impression & Plan Acute dehydration, LISA (acute kidney injury), Atrial fibrillation with RVR, Acute hypokalemia, Rhabdomyolysis, Elevated troponin, Acute hip pain ED Provider Note NAME: NIKOLAI SANDOVAL AGE: 70 SEX: F : 1955 ARRIVES VIA: Ambulance INFORMANT: Patient, ED PROVIDER(S): Aiden Long MD CHIEF COMPLAINT: Fall, hip pain MEDICAL DECISION MAKING: Patient presents with the above. Patient had been wedged between her bed and the nightstand since noon presenting to the emergency department almost 4 AM. IV was established and blood work was obtained. Patient had not taken her medications in the evening. The patient was ordered her home metoprolol IV fluids as well as IV Lopressor as the patient was tachycardic. Patient clinically is dry in appearance. Initial ordered 500 of IV fluids. Noted medication list shows Lasix as needed no echoes to review within the [facility] records. I did speak with case management order obtain outpatient cardiology visit note. Blood work shows a white count of 16 which may be reactive the patient denies any infectious symptoms. H&H is normal with normal platelet count. The patient with LISA baseline creatinine 0.7 currently 1.3 mild rhabdo noted with a creat kinase of 657. Troponin is elevated at 37 likely demand. EKG without signs of obvious ischemia. Known A-fib. The patient did have plain x-rays performed of the chest as well as right hip. The patient was able to raise the leg up off the bed. No obvious fracture noted. Chest x-ray with cardiomegaly. Patient was ordered additional IV fluids. The patient with hypokalemia but normal mag the patient was ordered 40 mEq of potassium. I did speak with the on-call hospital service Dr. Dempsey and the patient was admitted to the medicine service. Discussion w/ other healthcare providers: Dr. Dempsey inpatient medicine service Prior /Outside records reviewed: none Differential diagnosis: Infection, dehydration, metabolic abnormality, hypo/hyperglycemia, electrolyte imbalance, anemia, UTI, pneumonia, thyroid dysfunction among others were considered. Diagnostics, as interpreted by me: ECG: A-fib, rate of 113, normal QRS duration, left axis deviation T wave inversion in V2. No obvious STEMI. Cardiac monitoring: An order was placed for continuous cardiac monitoring. The monitor shows a rate of 115 with irregular irregular and tachycardic rhythm. Patient was placed on pulse oximetry Medical decision rules: none Imaging studies: I informally interpreted the patient's right hip x-ray does not show obvious fracture or dislocation with formal report to follow. HPI: Patient presents due to concern for being found stuck between her bed and nightstand since about noon. Patient states that she had gotten up that she was getting ready for alliance party for later in the day when her legs gave out. Patient denies any head strike or LOC but is complaining of same right-sided hip pain. Patient was reportedly found by her sister who would come to visit her in the early childhood specialist hours and called the ambulance. Patient had been stuck in the same position for approximately 15 hours. Patient does take Pradaxa for known history of A-fib. She does follow with cardiology but is unsure as to who it is. No reported chest pain or shortness of breath. No abdominal pain. PAST MEDICAL HISTORY: See Below PAST SURGICAL HISTORY: See Below SOCIAL HISTORY: See Below HOME MEDICATIONS: See Below ALLERGIES: See Below VITALS: See Below PHYSICAL EXAMINATION: GENERAL: NAD, non-toxic. BMI 48. Head: Normal cephalic atraumatic. EYE EXAM: Normal conjunctiva. PERRL, no anisocoria and EOM's grossly intact w/o pain. OROPHARYNX: Dry mucus membranes, grossly normal dentition. NECK: Trachea midline, no stridor. No midline C-spine TTP. LUNGS: Clear to auscultation. Normal chest wall mechanics. HEART: NSR, no MRG. ABDOMEN: Abdomen soft, non-tender, no masses, no rebound or guarding. BACK: No back pain. SKIN: No rashes and no bruising. UPPER EXTREMITIES: Upper extremities are grossly normal. No TTP or deformity. LOWER EXTREMITIES: Pain to palpation over the right hip able to raise both legs up off the bed. Compartments are soft and neurovascular intact distally. NEURO EXAM: Awake and alert, follows commands, no obvious facial asymmetry, normal speech, moves all 4 extremities. Past Med/Surg History Problem List (Updated 03/31/25 @ 06:28 by Aiden Long MD) Acute hip pain (Acute) Elevated troponin (Acute) Rhabdomyolysis (Acute) Acute hypokalemia (Acute) Atrial fibrillation with RVR (Acute) LISA (acute kidney injury) (Acute) Acute dehydration (Acute) Ventral hernia History of ovarian cancer Chronic atrial fibrillation Abnormal urinalysis Abdominal wall hernia (Acute) SBO (small bowel obstruction) (Acute) Uncontrolled type 2 diabetes mellitus with hyperglycemia, with long-term current use of insulin Neuropathy, Mild Nephropathy, Macrovascular complications Diabetes mellitus type 2, controlled, with complications Neuropathy, Mild Nephropathy, Macrovascular History of colon polyps Genetic defect Obesity, morbid, BMI 50 or higher (Chronic) Renal lesion Chronic anticoagulation (Chronic) Ambulatory dysfunction (Chronic) Altered mental status (Chronic) HTN (hypertension) (Chronic) HLD (hyperlipidemia) (Chronic) COPD (chronic obstructive pulmonary disease) (Chronic) NAVI (obstructive sleep apnea) (Chronic) cpap Diabetic neuropathy (Chronic) GERD (gastroesophageal reflux disease) (Chronic) Depression (Chronic) Hypothyroid (Chronic) Gout (Chronic) Atrial fibrillation (Chronic) Medical History Elevated troponin Loss of protective sensation of skin of foot Rectal bleed Lower gastrointestinal hemorrhage Nausea and vomiting after administration of anesthetic agent Hx of ovarian cancer 2019- surgical intervention, no chemo or radiation-[facility] [place] Liver lesion Liver cell injury Ovarian cancer on right 28 lb R adnexal mass removed 07/22/19 Edema Closed head injury Syncope Leg wound, right Atrial fibrillation with rapid ventricular response (07/14/14) - follows w/ dr norris last visit 1 yr ago- takes pradaxa Surgical History S/P appendectomy during hysterectomy S/P hysterectomy Status post colonoscopy with polypectomy History of cholecystectomy History of hernia repair during hysterectomy Family History Father Myocardial infarction Coronary heart disease Diabetes Mother Complication of surgery Diabetes Sister Diabetes Sister Diabetes Brother Diabetes "Pre-diabetic" Sister Diabetes Sister Gestational diabetes Grandmother (Paternal) Diabetes Grandmother (Maternal) Diabetes Social History Smoking Status: Never smoker Cigarettes Per Day: 0; Second Hand Exposure: No; Do You Dip or Chew Tobacco: No; Hx Alcohol Use: Yes Hx Substance Use: No Preferred Language: Qatari Communication Ability: Effective Professional Tutor Required: No Beliefs That Will Affect Care: None marital status: / Current Living Situation: Alone Current Living Situation Comment: Lives at home with daugther, son in law and grandchildren Feels Safe at Home: Yes Assistive Devices: BiPap and Walker Allergies Allergies Allergy/AdvReac Type Severity Reaction Status Date / Time nickel Allergy Mild Redness of Verified 12/27/24 00:25 Skin GIN Inhibitors Allergy Unknown Unknown Verified 12/27/24 00:25 cat dander Allergy Unknown Unknown Verified 12/27/24 00:25 cockroach Allergy Unknown Unknown Verified 12/27/24 00:25 house dust Allergy Unknown Unknown Verified 12/27/24 00:25 pioglitazone Allergy Unknown Unknown Verified 12/27/24 00:25 tree and shrub pollen Allergy Unknown Unknown Verified 12/27/24 00:25 codeine AdvReac Mild Nausea Verified 12/27/24 00:25 hydrocodone AdvReac Mild Nausea Verified 12/27/24 00:25 meperidine AdvReac Mild Nausea Verified 12/27/24 00:25 morphine AdvReac Mild Nausea Verified 12/27/24 00:25 Home Meds Home Medications Medication Instructions Recorded Confirmed allopurinol 100 mg tablet 100 mg PO BID 09/28/18 03/31/25 aspirin 81 mg tablet,delayed 81 mg PO QAM 09/28/18 03/31/25 release (Tiara Low Dose Aspirin) atorvastatin 40 mg tablet 40 mg PO HS 09/28/18 03/31/25 gemfibrozil 600 mg tablet 600 mg PO BID 09/28/18 03/31/25 levothyroxine 112 mcg tablet 112 mcg PO QAM 09/28/18 03/31/25 metoprolol tartrate 25 mg tablet 25 mg PO BID 09/28/18 03/31/25 mometasone 50 mcg/actuation nasal 1 - 2 spray intranasal QAM 09/28/18 03/31/25 spray diclofenac sodium 1 % topical gel 2 g topical QID 12/09/18 03/31/25 glucosamine 375 [id number] 1 tab PO BID 08/01/20 03/31/25 no1 500 mg-C 15 mg-donald 0.5 mg tablet famotidine 20 mg tablet (Pepcid) 20 mg PO BID 11/10/23 03/31/25 furosemide 40 mg tablet (Lasix) 40 mg PO BID PRN swelling 11/10/23 03/31/25 diltiazem HCl 360 mg capsule,24 360 mg PO DAILY 03/23/24 03/31/25 hr,extended release blood-glucose sensor (Dexcom G6 12/07/24 03/31/25 Sensor device) insulin lispro 100 unit/mL See Rx Instructions .Route .COMPLEX 12/07/24 03/31/25 subcutaneous pen (Humalog KwikPen (U-100) Insulin) insulin glargine 100 unit/mL (3 50 unit subcut BID 12/17/24 03/31/25 mL) subcutaneous pen (Lantus Solostar U-100 Insulin) ipratropium 20 mcg-albuterol 100 1 puff inhalation QID 12/17/24 03/31/25 mcg/actuation mist for inhalation (Combivent Respimat) silver sulfadiazine 1 % topical 1 applic topical DAILY 12/17/24 03/31/25 cream Lactobacillus acidophilus and 1 cap PO DAILY 12/27/24 03/31/25 rhamnosus 15 billion cell capsule (Probiotic) ascorbic acid (vitamin C) 100 mg 100 mg PO DAILY 12/27/24 03/31/25 tablet (Vitamin C) magnesium glycinate 100 mg (as 250 mg PO DAILY 12/27/24 03/31/25 glycinate) tablet zinc gluconate 50 mg tablet 100 mg PO DAILY 12/27/24 03/31/25 cholecalciferol (vitamin D3) 125 125 mcg PO DAILY 03/31/25 03/31/25 mcg (5,000 unit) tablet (Vitamin D3) coenzyme Q10 200 mg capsule 200 mg PO DAILY 03/31/25 03/31/25 tirzepatide 5 mg/0.5 mL 5 mg subcut WK 03/31/25 03/31/25 subcutaneous pen injector (Mounjaro) turmeric 400 mg capsule 400 mg PO DAILY 03/31/25 03/31/25 Previous Rx's Medication Instructions Recorded dabigatran etexilate 150 mg 150 mg PO BID #14 caps 04/17/22 capsule (Pradaxa) pen needle, diabetic 31 gauge x #500 ea 11/07/2302/15" (Clickfine Pen Needle) potassium chloride 20 mEq 20 meq PO BID PRN Take when you 12/20/24 tablet,extended release take Lasix #30 tabs gabapentin 600 mg tablet 600 mg PO TID #270 tabs 01/10/25 Results & Data (ED) Vital Signs Vital Signs - 24 hr 03/31/25 03:50 03/31/25 03:50 03/31/25 03:50 Temperature 36.5 C 36.5 C Temperature Source Oral Oral Pulse Rate 121 H 121 H Pulse Rate [Apical] 121 H Pulse Rate from SpO2 Sensor Pulse Rhythm Regular Regular Pulse Strength Normal Respiratory Rate 20 20 20 Respiratory Effort / Characteristics Non-Labored Spontaneous Non-Labored Spontaneous Respiratory Depth Normal Normal Respiratory Pattern Regular Regular Blood Pressure 130/82 Blood Pressure [Left Arm] 130/82 Blood Pressure Mean 98 Blood Pressure Mean [Left Arm] 98 Blood Pressure Position Lying Blood Pressure Position [Left Arm] Lying Pulse Oximetry 95 95 92 Oxygen Delivery Method Room Air Room Air Room Air Oxygen Flow Rate Sepsis Recent Fever Within 48 Hours No Sepsis New/Unexplained Change in Mental Status N/A Sepsis Action Taken by Nursing No Action Required 03/31/25 03:57 03/31/25 04:15 03/31/25 04:15 Temperature Temperature Source Pulse Rate 114 H 120 H 119 H Pulse Rate [Apical] Pulse Rate from SpO2 Sensor 117 H Pulse Rhythm Pulse Strength Respiratory Rate 13 Respiratory Effort / Characteristics Respiratory Depth Respiratory Pattern Blood Pressure 129/86 129/86 Blood Pressure [Left Arm] Blood Pressure Mean 100 Blood Pressure Mean [Left Arm] Blood Pressure Position Blood Pressure Position [Left Arm] Pulse Oximetry 94 Oxygen Delivery Method Room Air Oxygen Flow Rate Sepsis Recent Fever Within 48 Hours Sepsis New/Unexplained Change in Mental Status Sepsis Action Taken by Nursing 03/31/25 04:15 03/31/25 04:30 03/31/25 04:30 Temperature 36.7 C Temperature Source Oral Pulse Rate 103 H Pulse Rate [Apical] 103 H Pulse Rate from SpO2 Sensor Pulse Rhythm Pulse Strength Respiratory Rate 18 Respiratory Effort / Characteristics Non-Labored Spontaneous Respiratory Depth Normal Respiratory Pattern Regular Blood Pressure 129/86 128/85 Blood Pressure [Left Arm] 128/85 Blood Pressure Mean 91 Blood Pressure Mean [Left Arm] 99 Blood Pressure Position Blood Pressure Position [Left Arm] Lying Pulse Oximetry 95 Oxygen Delivery Method Room Air Oxygen Flow Rate Sepsis Recent Fever Within 48 Hours Sepsis New/Unexplained Change in Mental Status Sepsis Action Taken by Nursing 03/31/25 05:00 03/31/25 05:00 03/31/25 05:27 Temperature 36.5 C Temperature Source Oral Pulse Rate 103 H 100 H Pulse Rate [Apical] 107 H Pulse Rate from SpO2 Sensor 103 H 99 H Pulse Rhythm Pulse Strength Respiratory Rate 18 18 22 Respiratory Effort / Characteristics Non-Labored Spontaneous Respiratory Depth Normal Respiratory Pattern Regular Blood Pressure 147/88 H Blood Pressure [Left Arm] 147/88 H Blood Pressure Mean 107 Blood Pressure Mean [Left Arm] 107 Blood Pressure Position Blood Pressure Position [Left Arm] Lying Pulse Oximetry 94 94 82 L Oxygen Delivery Method Room Air Room Air Room Air Oxygen Flow Rate Sepsis Recent Fever Within 48 Hours Sepsis New/Unexplained Change in Mental Status Sepsis Action Taken by Nursing 03/31/25 05:30 03/31/25 05:48 03/31/25 06:15 Temperature Temperature Source Pulse Rate 99 H 99 H 108 H Pulse Rate [Apical] Pulse Rate from SpO2 Sensor 99 H 97 H 106 H Pulse Rhythm Pulse Strength Respiratory Rate 20 21 18 Respiratory Effort / Characteristics Respiratory Depth Respiratory Pattern Blood Pressure 146/89 H 135/93 Blood Pressure [Left Arm] Blood Pressure Mean 108 98 Blood Pressure Mean [Left Arm] Blood Pressure Position Blood Pressure Position [Left Arm] Pulse Oximetry 96 96 97 Oxygen Delivery Method Oxymask Oxymask Oxymask Oxygen Flow Rate 2 2 2 Sepsis Recent Fever Within 48 Hours Sepsis New/Unexplained Change in Mental Status Sepsis Action Taken by Retirement Medications Current Medication List: was personally reviewed by me Laboratory Data Attestation: I reviewed the patient's lab results. 03/31/25 04:00 03/31/25 04:00 Lab Results 03/31/25 Range/Units 04:00 WBC 16.27 H (4.8-10.8) K/ul RBC 4.40 (4.20-5.40) M/uL Hgb 13.4 (12.0-16.0) g/dl Hct 39.5 (37.0-47.0) % MCV 89.8 (80.0-100.0) fL MCH 30.5 (25.0-34.0) pg MCHC 33.9 (32.0-36.0) g/dL RDW Std Deviation 48.2 H (36.4-46.3) fL RDW Coeff of Faraz 14.8 H (11.5-14.5) % Plt Count 249 (130-400) K/uL MPV 11.0 (9.4-12.4) fL Immature Gran % (Auto) 0.6 % Neut % (Auto) 86.9 % Lymph % (Auto) 6.0 % Edgar % (Auto) 6.3 % Eos % (Auto) 0.0 % Baso % (Auto) 0.2 % Neut # (Auto) 14.15 H (1.40-6.50) K/uL Lymph # (Auto) 0.97 L (1.20-3.40) K/uL Edgar # (Auto) 1.02 H (0.11-0.59) K/uL Eos # (Auto) 0.00 (0.00-0.50) K/uL Baso # (Auto) 0.04 (0.00-0.20) K/uL Immature Gran # (Auto) 0.09 (0.01-0.20) K/uL PT 14.3 H (9.0-12.0) Seconds INR 1.4 H (0.9-1.1) Sodium 136 (136-145) mmol/L Potassium 3.0 L (3.5-5.1) mmol/L Chloride 96 L (98-107) mmol/L Carbon Dioxide 27 (21-32) mmol/L Anion Gap 13 H (3-11) BUN 36 H (6-23) mg/dl Creatinine 1.33 H (0.6-1.2) mg/dl Est Cr Clr Drug Dosing 52.3 ml/min eGFR 43.04 BUN/Creatinine Ratio 27.1 H (10-20) Glucose 240 H (70-99(Fasting)) mg/dl Calcium 8.9 (8.6-10.3) mg/dl Magnesium 2.1 (1.7-2.4) mg/dl Total Bilirubin 1.2 H (0.2-1.0) mg/dl AST 58 H (13-39) U/L ALT 36 (7-52) U/L Alkaline Phosphatase 91 (34-104) U/L Total Creatine Kinase 657 H (26-192) U/L Troponin I High Sens 37.4 H (0-14) pg/ml Total Protein 6.5 (6.0-8.3) gm/dl Albumin 3.1 L (3.4-5.0) gm/dl Globulin 3.4 (2.5-4.0) gm/dl Albumin/Globulin Ratio 0.9 (0.9-2) TSH 0.458 (0.300-4.500) uIu/ml Administered Medications Potassium Chloride 20 meq/ (Lactated Ringer's) 1,010 mls @ 100 mls/hr IV .Q10H6M STA Stop: 03/31/25 15:36 Last Admin: 03/31/25 05:58 Dose: 100 mls/hr Documented By: CEDRIC Discontinued Medications Sodium Chloride (Nss) 500 mls @ 999 mls/hr IV .Q31M ONE Stop: 03/31/25 04:34 Last Infusion: 03/31/25 05:02 Dose: Infused Documented By: Admin: 03/31/25 04:14 Dose: 999 mls/hr Documented By: CEDRIC Sodium Chloride (Nss) 500 mls @ 999 mls/hr IV .Q31M ONE Stop: 03/31/25 05:15 Last Infusion: 03/31/25 05:43 Dose: Infused Documented By: Admin: 03/31/25 05:01 Dose: 999 mls/hr Documented By: CEDRIC Potassium Chloride/Sodium Chloride (Normal Saline W/20 Meq Kcl) 20 meq in 1,000 mls @ 100 mls/hr IV .Q10H ONE Stop: 03/31/25 15:21 Last Admin: 03/31/25 05:44 Dose: Not Given Documented By: CEDRIC Metoprolol Tartrate (Metoprolol Tartrate 1 Mg/Ml Vial) 5 mg IV NOW STA Stop: 03/31/25 04:05 Last Admin: 03/31/25 04:15 Dose: 5 mg Documented By: CEDRIC Metoprolol Tartrate (Metoprolol Tartrate 25 Mg Tab) 25 mg PO NOW STA Stop: 03/31/25 04:05 Last Admin: 03/31/25 04:17 Dose: 25 mg Documented By: CEDRIC Potassium Chloride (Potassium Chloride Crtab 20 Meq Tabcr) 40 meq PO NOW STA Stop: 03/31/25 04:46 Last Admin: 03/31/25 05:02 Dose: 40 meq Documented By: CEDRIC Imaging Data Radiologist's Impression: Chest X-Ray 03/31/25 04:02 EXAM: XR chest 1V portable CLINICAL HISTORY: Weakness TECHNIQUE: An X-ray image of the chest is obtained in AP projection. COMPARISON: Compared to prior CXR on 12/17/2024. FINDINGS: Removed NG tube. Pulmonary Parenchyma: Unchanged prominent perihilar vascular markings indicate signs of pulmonary congestion. Bilateral basal haziness could be due to an overlapping artifact rather than an inflammatory process. No evidence of consolidation, collapse, or focal opacities. No pulmonary nodules are identified. No evidence of pleural effusion or pleural thickening. Heart and Mediastinum: Mildly enlarged heart. No mediastinal widening or masses. No hilar or mediastinal lymphadenopathy. Bony Thorax: Bony thorax appears intact without fractures or deformities. Soft Tissues: Soft tissues overlying the chest wall are unremarkable. IMPRESSION: 1. Compared to prior CXR on 12/17/2024 2. No apparent interval changes, unchanged signs of pulmonary congestion. 3. The NG tube is removed. Electronically signed by Tucker Navarro 03-31-2025 05:13 AM Hip/Pelvis X-Ray 03/31/25 04:04 EXAM: XR hip RT 2V w pelvis CLINICAL HISTORY: Fall, hip pain TECHNIQUE: X-ray images of the right hip joint were obtained in lateral projection, including pelvis AP view. COMPARISON: No prior studies available for comparison. FINDINGS: Pelvic Bones: Pelvic bones, including the iliac wings, ischium, pubis, and sacrum, are normal and intact. No evidence of fractures, dislocations, or significant osseous lesions. Hip Joints: Bilateral osteoarthritic changes with peripheral osteophytes formation Acetabular structures appear normal and intact. No signs of acetabular fracture or dysplasia. Femoral heads are normal and centered within the acetabulum. No evidence of fractures, avascular necrosis, or significant deformities. Sacroiliac joints, bilateral degenerative changes. Symphysis Pubis: Symphysis pubis is normal and intact. No evidence of separation or widening. Soft Tissues: Visualized soft tissues are normal and unremarkable. No soft tissue swelling, calcifications, or masses. Additional Findings: No other significant abnormalities were noted. IMPRESSION: 1. Bilateral osteoarthritic changes of both hips with marginal osteophytes arising from the acetabular root. 2. No definite evidence of acute fractures or dislocations; however, the study is underpenetrated due to body habitus; clinical correlation is needed DISCLAIMER:A subtle bone abnormality or fracture may not be readily apparent on x-rays, thus clinical correlation and further imaging including follow up CT, MRI, or follow up x-rays are advised as needed. Electronically signed by Tucker Navarro 03-31-2025 05:27 AM Discharge Plan Visit Data Chief Complaint: Fall Stated Complaint: Fall, R Hip Pain ED Provider: Aiden Long Discharge Problem: Acute dehydration, LISA (acute kidney injury), Atrial fibrillation with RVR, Acute hypokalemia, Rhabdomyolysis, Elevated troponin, Acute hip pain Patient Disposition: Admitted As Inpatient Condition: Good Forms Stand Alone Forms: My [facility] [address] Prescriptions Prescriptions: No Action (DME) pen needle, diabetic [Clickfine Pen Needle] 31 gauge x 5/16" needle See Rx Instructions .Route Qty: 500 3RF Rx Instructions: Use 5 per day gabapentin 600 mg tablet 600 mg PO TID Qty: 270 1RF [id number] mg tablet 1 tab PO BID Rx Instructions: 1 tab in Am and 1 tab HS diltiazem HCl 360 mg capsule,extended release 24 hr 360 mg PO DAILY insulin lispro [Humalog KwikPen Insulin] 100 unit/mL insulin pen See Rx Instructions .ROUTE .COMPLEX Rx Instructions: PER [facility]: 35 UNITS QAM PLUS SLIDING SCALE, 15 UNITS @ 1400 PLUS SLIDING SCALE, AND 30 UNITS Q EVENING PLUS SLIDING SCALE. PER D/C INSTRUCTIONS 12/20/24: 15 UNITS WITH MEALS. (DME) Dexcom G6 Sensor Device See Rx Instructions .ROUTE Rx Instructions: As directed atorvastatin 40 mg Tablet 40 mg PO HS allopurinol 100 mg Tablet 100 mg PO BID aspirin [Tiara Low Dose Aspirin] 81 mg Tablet,Delayed Release (Dr/Ec) 81 mg PO QAM gemfibrozil 600 mg Tablet 600 mg PO BID mometasone 50 mcg/actuation [place],Non-Aerosol 1 - 2 spray INTRANASAL QAM levothyroxine 112 mcg Tablet 112 mcg PO QAM metoprolol tartrate 25 mg Tablet 25 mg PO BID diclofenac sodium 1 % gel 2 g topical QID dabigatran etexilate [Pradaxa] 150 mg Capsule 150 mg PO BID Qty: 14 0RF famotidine [Pepcid] 20 mg tablet 20 mg PO BID furosemide [Lasix] 40 mg tablet 40 mg PO BID PRN (Reason: swelling) Mounjaro 5 mg/0.5 mL pen injector 5 mg SUBCUT WK Rx Instructions: inject 5mg SQ every 7 days coenzyme Q10 200 mg Capsule 200 mg PO DAILY cholecalciferol (vitamin D3) [Vitamin D3] 125 mcg (5,000 unit) Tablet 125 mcg PO DAILY turmeric 400 mg Capsule 400 mg PO DAILY silver sulfadiazine 1 % cream 1 applic TOPICAL DAILY Rx Instructions: RIGHT LOWER LEG WOUND; COVER WITH GAUZE Combivent Respimat 20-100 mcg/actuation mist 1 puff INHALATION QID insulin glargine [Lantus Solostar U-100 Insulin] 100 unit/mL (3 mL) insulin pen 50 unit SUBCUT BID Rx Instructions: pt reports she takes 30Units twice daily. potassium chloride 20 mEq tablet extended release 20 meq PO BID PRN (Reason: Take when you take Lasix ) Qty: 30 0RF Vitamin C 100 mg Tablet 100 mg PO DAILY zinc gluconate 50 mg Tablet 100 mg PO DAILY magnesium glycinate 100 mg Tablet 250 mg PO DAILY Probiotic 15 billion cell capsule 1 cap PO DAILY Referrals Referrals: Mohsen Vazquez MD [Primary Care Provider] - Discharge Problem: Rhabdomyolysis Qualifiers: Rhabdomyolysis type: non-traumatic Qualified Code(s): M62.82 - Rhabdomyolysis Acute hip pain Qualifiers: Laterality: right Qualified Code(s): M25.551 - Pain in right hip
[2025-03-31] MEDS: SODIUM CHLORIDE 0.9% 500 ML IV ONE ×2 (04:14→05:01)
[2025-03-31] MEDS: METOPROLOL TARTRATE 1 MG/ML VIAL IV STA (04:15)
[2025-03-31] MEDS: METOPROLOL TARTRATE 25 MG TAB PO STA (04:17)
[2025-03-31 04:20] LABS: Hematocrit (blood only) 39.5 % (37.0-47.0); Hemoglobin 13.4 g/dl (12.0-16.0); Immature Granulocytes # (auto) 0.09 K/uL (0.01-0.20); Immature Granulocytes % (auto) 0.6 %; Mean Corpuscular Hemoglobin 30.5 pg (25.0-34.0); Mean Corpuscular Volume 89.8 fL (80.0-100.0); Platelet Count 249 K/uL (130-400); RDW Standard Deviation 48.2 fL (36.4-46.3); Red Blood Count 4.40 M/uL (4.20-5.40); White Blood Count 16.27 K/ul (4.8-10.8)
[2025-03-31 04:36] LABS: Alanine Aminotransferase 36.0 U/L (7-52); Albumin Globulin Ratio 0.9 (0.9-2); Alkaline Phosphatase 91.0 U/L (34-104); Anion Gap 13.0 (3-11); Bilirubin,Total 1.2 mg/dl (0.2-1.0); Blood Urea Nitrogen 36.0 mg/dl (6-23); Calcium 8.9 mg/dl (8.6-10.3); Carbon Dioxide 27.0 mmol/L (21-32); Chloride 96.0 mmol/L (98-107); Creatine Kinase 657.0 U/L (26-192); Creatinine Clr Calc Pharmacy 52.3 ml/min; Globulin 3.4 gm/dl (2.5-4.0); Glucose 240.0 mg/dl (70-99(Fasting)); Magnesium 2.1 mg/dl (1.7-2.4); Potassium 3.0 mmol/L (3.5-5.1); Sodium 136.0 mmol/L (136-145); Total Protein 6.5 gm/dl (6.0-8.3)
[2025-03-31 04:48] LABS: INR 1.4 (0.9-1.1); Prothrombin Time 14.3 Seconds (9.0-12.0)
[2025-03-31 04:52] LABS: Thyroid Stimulating Hormone 0.458 uIu/ml (0.300-4.500)
[2025-03-31] MEDS: POTASSIUM CHLORIDE CRTAB 20 MEQ TABCR PO STA ×2 (05:02→06:37)
--- NOTE | 2025-03-31 05:13 | XRay Report ---
EXAM: XR chest 1V portable CLINICAL HISTORY: Weakness TECHNIQUE: An X-ray image of the chest is obtained in AP projection. COMPARISON: Compared to prior CXR on 12/17/2024. FINDINGS: Removed NG tube. Pulmonary Parenchyma: Unchanged prominent perihilar vascular markings indicate signs of pulmonary congestion. Bilateral basal haziness could be due to an overlapping artifact rather than an inflammatory process. No evidence of consolidation, collapse, or focal opacities. No pulmonary nodules are identified. No evidence of pleural effusion or pleural thickening. Heart and Mediastinum: Mildly enlarged heart. No mediastinal widening or masses. No hilar or mediastinal lymphadenopathy. Bony Thorax: Bony thorax appears intact without fractures or deformities. Soft Tissues: Soft tissues overlying the chest wall are unremarkable. IMPRESSION: 1. Compared to prior CXR on 12/17/2024 2. No apparent interval changes, unchanged signs of pulmonary congestion. 3. The NG tube is removed. Electronically signed by Tucker Navarro 03-31-2025 05:13 AM
--- NOTE | 2025-03-31 05:27 | XRay Report ---
EXAM: XR hip RT 2V w pelvis CLINICAL HISTORY: Fall, hip pain TECHNIQUE: X-ray images of the right hip joint were obtained in lateral projection, including pelvis AP view. COMPARISON: No prior studies available for comparison. FINDINGS: Pelvic Bones: Pelvic bones, including the iliac wings, ischium, pubis, and sacrum, are normal and intact. No evidence of fractures, dislocations, or significant osseous lesions. Hip Joints: Bilateral osteoarthritic changes with peripheral osteophytes formation Acetabular structures appear normal and intact. No signs of acetabular fracture or dysplasia. Femoral heads are normal and centered within the acetabulum. No evidence of fractures, avascular necrosis, or significant deformities. Sacroiliac joints, bilateral degenerative changes. Symphysis Pubis: Symphysis pubis is normal and intact. No evidence of separation or widening. Soft Tissues: Visualized soft tissues are normal and unremarkable. No soft tissue swelling, calcifications, or masses. Additional Findings: No other significant abnormalities were noted. IMPRESSION: 1. Bilateral osteoarthritic changes of both hips with marginal osteophytes arising from the acetabular root. 2. No definite evidence of acute fractures or dislocations; however, the study is underpenetrated due to body habitus; clinical correlation is needed DISCLAIMER:A subtle bone abnormality or fracture may not be readily apparent on x-rays, thus clinical correlation and further imaging including follow up CT, MRI, or follow up x-rays are advised as needed. Electronically signed by Tucker Navarro 03-31-2025 05:27 AM
[2025-03-31] MEDS: NSS + 20MEQ KCL 20 MEQ/1,000 ML BAG IV ONE (05:44)
[2025-03-31] MEDS: POTASSIUM CHLORIDE 20 MEQ in LACTATED RINGER'S 1,000 ML IV STA (05:58)
--- NOTE | 2025-03-31 06:00 | History & Physical Report ---
Date of Service March 31, 2025 Assessment & Plan (1) Sepsis: Plan: Assessment and plan below following discussion of case with ED provider and reviewing patient history/pertinent normal/abnormal diagnostic test results. Sepsis secondary to complicated UTI Diarrhea rule out infectious causes Rapid A-fib secondary to illness and missed medications Patient on Pradaxa Troponin elevation secondary illness in the setting of kidney dysfunction, mild rhabdomyolysis from fall Hypokalemia secondary to home diuretic Rx COPD/NAVI on BiPAP, baseline pulmonary symptoms DM2 insulin requiring, well-controlled as of recent hemoglobin A1c of 5.7 last December 2024 hypothyroidism, euthyroid as of today's TSH ovarian cancer status post surgery, patient in remission anxiety/mood disorder, at baseline Abductor dysfunction morbid obesity past tobacco abuse Admit to medical telemetry CS, cefepime Stool C. difficile, CS Facilitate home calcium channel dani and beta-dani for rate control and titrate as needed Follow troponin, TTE for progression Monitor creatinine response to IVF, hold home diuretic until patient euvolemic Replace potassium Basal bolus insulin adjusted for decreased kidney function, ISS BG goal 110-140, carb count coverage PT OT eval DVT prophylaxis. Pradaxa Full code Patient sister requesting updates from providers. Mr. Annamarie Lu, contact #[phone]. Text document was generated using [employer] voice recognition software. It may contain grammatical or spelling errors. Kindly contact undersigned for clarification of any documentation item in question. History of Present Illness Chief Complaint: Fall Primary Care Provider: Mohsen Vazquez MD History obtained from patient, family, and records. Medical history significant for A-fib on Pradaxa, hypertension, COPD, NAVI on BiPAP, DM2 insulin requiring, hypothyroidism, ovarian cancer status post surgery, GERD, anxiety/mood disorder, morbid obesity, past tobacco abuse. Last confinement December 2024 for small bowel obstruction secondary to ventral hernia. Resolved with conservative management. Patient fell at home resulting in her getting stuck between the bed and the night stand around noontime yesterday. Patient supposed to attend a family gathering. Patient unable to get up and get to her phone. Patient denies headache, chest pain, SOB, abdominal pain. Achy right hip pain. Does not think she passed out. Family wondered about patient because she missed transportation operations manager and was not answering phone calls. Patient found at home late last night. EMS called to patient's home. Patient noted to be in rapid A-fib upon arrival in the ER. IV Lopressor administered at the ER. Patient noted to have diarrhea at the ER. Medical History as above Surgical History : KWAKU, BSO, breast lesion excision, dental surgery, cholecystectomy, hernia repair, appendectomy, bowel surgery, panniculectomy Family History : DM, kidney cancer, alcoholism, leukemia Personal/Social history : Past tobacco abuse, rare EtOH intake, retired from [employer] work Allergies Allergy/AdvReac Type Severity Reaction Status Date / Time nickel Allergy Mild Redness of Verified 12/27/24 00:25 Skin GIN Inhibitors Allergy Unknown Unknown Verified 12/27/24 00:25 cat dander Allergy Unknown Unknown Verified 12/27/24 00:25 cockroach Allergy Unknown Unknown Verified 12/27/24 00:25 house dust Allergy Unknown Unknown Verified 12/27/24 00:25 pioglitazone Allergy Unknown Unknown Verified 12/27/24 00:25 tree and shrub pollen Allergy Unknown Unknown Verified 12/27/24 00:25 codeine AdvReac Mild Nausea Verified 12/27/24 00:25 hydrocodone AdvReac Mild Nausea Verified 12/27/24 00:25 meperidine AdvReac Mild Nausea Verified 12/27/24 00:25 morphine AdvReac Mild Nausea Verified 12/27/24 00:25 Home Medications Medication Instructions Recorded Confirmed Type allopurinol 100 mg tablet 100 mg PO BID 09/28/18 03/31/25 History aspirin 81 mg tablet,delayed 81 mg PO QAM 09/28/18 03/31/25 History release (Tiara Low Dose Aspirin) atorvastatin 40 mg tablet 40 mg PO HS 09/28/18 03/31/25 History gemfibrozil 600 mg tablet 600 mg PO BID 09/28/18 03/31/25 History levothyroxine 112 mcg tablet 112 mcg PO QAM 09/28/18 03/31/25 History metoprolol tartrate 25 mg tablet 25 mg PO BID 09/28/18 03/31/25 History mometasone 50 mcg/actuation nasal 1 - 2 spray intranasal QAM 09/28/18 03/31/25 History spray diclofenac sodium 1 % topical gel 2 g topical QID 12/09/18 03/31/25 History glucosamine 375 uv-[id number]-[id number] 1 tab PO BID 08/01/20 03/31/25 History no1 500 mg-C 15 mg-donald 0.5 mg tablet dabigatran etexilate 150 mg 150 mg PO BID #14 caps 04/17/22 03/31/25 Rx capsule (Pradaxa) pen needle, diabetic 31 gauge x #500 ea 11/07/23 12/07/24 Rx 5/16" (Clickfine Pen Needle) famotidine 20 mg tablet (Pepcid) 20 mg PO BID 11/10/23 03/31/25 History furosemide 40 mg tablet (Lasix) 40 mg PO BID PRN swelling 11/10/23 03/31/25 History diltiazem HCl 360 mg capsule,24 360 mg PO DAILY 03/23/24 03/31/25 History hr,extended release blood-glucose sensor (Dexcom G6 12/07/24 03/31/25 History Sensor device) insulin lispro 100 unit/mL See Rx Instructions .Route .COMPLEX 12/07/24 03/31/25 History subcutaneous pen (Humalog KwikPen (U-100) Insulin) insulin glargine 100 unit/mL (3 50 unit subcut BID 12/17/24 03/31/25 History mL) subcutaneous pen (Lantus Solostar U-100 Insulin) ipratropium 20 mcg-albuterol 100 1 puff inhalation QID 12/17/24 03/31/25 History mcg/actuation mist for inhalation (Combivent Respimat) silver sulfadiazine 1 % topical 1 applic topical DAILY 12/17/24 03/31/25 History cream potassium chloride 20 mEq 20 meq PO BID PRN Take when you 12/20/24 03/31/25 Rx tablet,extended release take Lasix #30 tabs Lactobacillus acidophilus and 1 cap PO DAILY 12/27/24 03/31/25 History rhamnosus 15 billion cell capsule (Probiotic) ascorbic acid (vitamin C) 100 mg 100 mg PO DAILY 12/27/24 03/31/25 History tablet (Vitamin C) magnesium glycinate 100 mg (as 250 mg PO DAILY 12/27/24 03/31/25 History glycinate) tablet zinc gluconate 50 mg tablet 100 mg PO DAILY 12/27/24 03/31/25 History gabapentin 600 mg tablet 600 mg PO TID #270 tabs 01/10/25 03/31/25 Rx cholecalciferol (vitamin D3) 125 125 mcg PO DAILY 03/31/25 03/31/25 History mcg (5,000 unit) tablet (Vitamin D3) coenzyme Q10 200 mg capsule 200 mg PO DAILY 03/31/25 03/31/25 History tirzepatide 5 mg/0.5 mL 5 mg subcut WK 03/31/25 03/31/25 History subcutaneous pen injector (Mounjaro) turmeric 400 mg capsule 400 mg PO DAILY 03/31/25 03/31/25 History Past Med/Surg History Problem List (Updated 03/31/25 @ 09:30 by Duarte Dempsey MD) Sepsis Acute hip pain (Acute) Elevated troponin (Acute) Rhabdomyolysis (Acute) Acute hypokalemia (Acute) Atrial fibrillation with RVR (Acute) LISA (acute kidney injury) (Acute) Acute dehydration (Acute) Ventral hernia History of ovarian cancer Chronic atrial fibrillation Abnormal urinalysis Abdominal wall hernia (Acute) SBO (small bowel obstruction) (Acute) Uncontrolled type 2 diabetes mellitus with hyperglycemia, with long-term current use of insulin Neuropathy, Mild Nephropathy, Macrovascular complications Diabetes mellitus type 2, controlled, with complications Neuropathy, Mild Nephropathy, Macrovascular History of colon polyps Genetic defect Obesity, morbid, BMI 50 or higher (Chronic) Renal lesion Chronic anticoagulation (Chronic) Ambulatory dysfunction (Chronic) Altered mental status (Chronic) HTN (hypertension) (Chronic) HLD (hyperlipidemia) (Chronic) COPD (chronic obstructive pulmonary disease) (Chronic) NAVI (obstructive sleep apnea) (Chronic) cpap Diabetic neuropathy (Chronic) GERD (gastroesophageal reflux disease) (Chronic) Depression (Chronic) Hypothyroid (Chronic) Gout (Chronic) Atrial fibrillation (Chronic) Medical History Elevated troponin Loss of protective sensation of skin of foot Rectal bleed Lower gastrointestinal hemorrhage Nausea and vomiting after administration of anesthetic agent Hx of ovarian cancer 2018- surgical intervention, no chemo or radiation-[facility] [place] Liver lesion Liver cell injury Ovarian cancer on right 28 lb R adnexal mass removed 07/22/19 Edema Closed head injury Syncope Leg wound, right Atrial fibrillation with rapid ventricular response (07/14/14) - follows w/ dr norris last visit 1 yr ago- takes pradaxa Surgical History S/P appendectomy during hysterectomy S/P hysterectomy Status post colonoscopy with polypectomy History of cholecystectomy History of hernia repair during hysterectomy Family History Father Myocardial infarction Coronary heart disease Diabetes Mother Complication of surgery Diabetes Sister Diabetes Sister Diabetes Brother Diabetes "Pre-diabetic" Sister Diabetes Sister Gestational diabetes Grandmother (Paternal) Diabetes Grandmother (Maternal) Diabetes Social History Smoking Status: Never smoker Cigarettes Per Day: 0; Second Hand Exposure: No; Do You Dip or Chew Tobacco: No; Hx Alcohol Use: No Hx Substance Use: No Preferred Language: Kosovan Communication Ability: Effective Skein Drier Required: No Beliefs That Will Affect Care: None marital status: / Current Living Situation: Alone Current Living Situation Comment: Lives at home with daugther, son in law and grandchildren Other Information That Helps Us Care for You: No Feels Safe at Home: Yes Safety Concerns: Feels Safe At This Time Assistive Devices: Walker Review of Systems Review of Systems: As per HPI, all other systems reviewed and negative Physical Exam Physical Exam: GENERAL: Slightly uncomfortable, morbidly obese, no respiratory distress SKIN: Normal color, warm HEENT: [place] palpebral conjunctivae, no ptosis, dry buccal mucosa, nasal cannula in place NECK : Supple, short neck, no tenderness CHEST : Decreased breath sounds, no tenderness HEART : Irregular, no obvious murmurs ABDOMEN: Some distention, no overt tenderness EXTREMITIES : Minimal LE swelling, abrasions/contusions over both ankles, no other conspicuous deformities noted NEUROLOGIC : Coherent, no facial asymmetry, no other gross focality Results & Data Results & Data Vital Signs (Past 12 Hours) Vital Signs Temp Pulse Pulse Resp BP BP Pulse Ox 03/31/25 05:48 99 H 21 146/89 H 96 03/31/25 05:30 99 H 20 96 03/31/25 05:27 100 H 22 82 L 03/31/25 05:00 103 H 18 147/88 H 94 03/31/25 05:00 36.5 C 107 H 18 147/88 H 94 03/31/25 04:30 36.7 C 103 H 18 128/85 95 03/31/25 04:30 103 H 128/85 03/31/25 04:15 129/86 03/31/25 04:15 119 H 13 129/86 94 03/31/25 04:15 120 H 129/86 03/31/25 03:57 114 H 03/31/25 03:50 121 H 20 92 03/31/25 03:50 36.5 C 121 H 20 130/82 95 03/31/25 03:50 36.5 C 121 H 20 130/82 95 O2 Del Method O2 Flow Rate 03/31/25 05:48 Oxymask 2 03/31/25 05:30 Oxymask 2 03/31/25 05:27 Room Air 03/31/25 05:00 Room Air 03/31/25 05:00 Room Air 03/31/25 04:30 Room Air 03/31/25 04:30 03/31/25 04:15 03/31/25 04:15 Room Air 03/31/25 04:15 03/31/25 03:57 03/31/25 03:50 Room Air 03/31/25 03:50 Room Air 03/31/25 03:50 Room Air Laboratory Results Laboratory Results WBC 16.27 K/ul (4.8-10.8) H 03/31/25 04:00 RBC 4.40 M/uL (4.20-5.40) 03/31/25 04:00 Hgb 13.4 g/dl (12.0-16.0) 03/31/25 04:00 Hct 39.5 % (37.0-47.0) 03/31/25 04:00 MCV 89.8 fL (80.0-100.0) 03/31/25 04:00 MCH 30.5 pg (25.0-34.0) 03/31/25 04:00 MCHC 33.9 g/dL (32.0-36.0) 03/31/25 04:00 RDW Std Deviation 48.2 fL (36.4-46.3) H 03/31/25 04:00 RDW Coeff of Faraz 14.8 % (11.5-14.5) H 03/31/25 04:00 Plt Count 249 K/uL (130-400) 03/31/25 04:00 MPV 11.0 fL (9.4-12.4) 03/31/25 04:00 Immature Gran % (Auto) 0.6 % 03/31/25 04:00 Neut % (Auto) 86.9 % 03/31/25 04:00 Lymph % (Auto) 6.0 % 03/31/25 04:00 Cherry % (Auto) 6.3 % 03/31/25 04:00 Eos % (Auto) 0.0 % 03/31/25 04:00 Baso % (Auto) 0.2 % 03/31/25 04:00 Neut # (Auto) 14.15 K/uL (1.40-6.50) H 03/31/25 04:00 Lymph # (Auto) 0.97 K/uL (1.20-3.40) L 03/31/25 04:00 Cherry # (Auto) 1.02 K/uL (0.11-0.59) H 03/31/25 04:00 Eos # (Auto) 0.00 K/uL (0.00-0.50) 03/31/25 04:00 Baso # (Auto) 0.04 K/uL (0.00-0.20) 03/31/25 04:00 Immature Gran # (Auto) 0.09 K/uL (0.01-0.20) 03/31/25 04:00 PT 14.3 Seconds (9.0-12.0) H 03/31/25 04:00 INR 1.4 (0.9-1.1) H 03/31/25 04:00 Sodium 136 mmol/L (136-145) 03/31/25 04:00 Potassium 3.0 mmol/L (3.5-5.1) L 03/31/25 04:00 Chloride 96 mmol/L (98-107) L 03/31/25 04:00 Carbon Dioxide 27 mmol/L (21-32) 03/31/25 04:00 Anion Gap 13 (3-11) H 03/31/25 04:00 BUN 36 mg/dl (6-23) H 03/31/25 04:00 Creatinine 1.33 mg/dl (0.6-1.2) H 03/31/25 04:00 Est Cr Clr Drug Dosing 52.3 ml/min 03/31/25 04:00 eGFR 43.04 03/31/25 04:00 BUN/Creatinine Ratio 27.1 (10-20) H 03/31/25 04:00 Glucose 240 mg/dl (70-99(Fasting)) H 03/31/25 04:00 Calcium 8.9 mg/dl (8.6-10.3) 03/31/25 04:00 Magnesium 2.1 mg/dl (1.7-2.4) 03/31/25 04:00 Total Bilirubin 1.2 mg/dl (0.2-1.0) H 03/31/25 04:00 AST 58 U/L (13-39) H 03/31/25 04:00 ALT 36 U/L (7-52) 03/31/25 04:00 Alkaline Phosphatase 91 U/L (34-104) 03/31/25 04:00 Total Creatine Kinase 657 U/L (26-192) H 03/31/25 04:00 Troponin I High Sens 37.4 pg/ml (0-14) H 03/31/25 04:00 Total Protein 6.5 gm/dl (6.0-8.3) 03/31/25 04:00 Albumin 3.1 gm/dl (3.4-5.0) L 03/31/25 04:00 Globulin 3.4 gm/dl (2.5-4.0) 03/31/25 04:00 Albumin/Globulin Ratio 0.9 (0.9-2) 03/31/25 04:00 TSH 0.458 uIu/ml (0.300-4.500) 03/31/25 04:00 Impressions Chest X-Ray 03/31/25 04:02 EXAM: XR chest 1V portable CLINICAL HISTORY: Weakness TECHNIQUE: An X-ray image of the chest is obtained in AP projection. COMPARISON: Compared to prior CXR on 12/17/2024. FINDINGS: Removed NG tube. Pulmonary Parenchyma: Unchanged prominent perihilar vascular markings indicate signs of pulmonary congestion. Bilateral basal haziness could be due to an overlapping artifact rather than an inflammatory process. No evidence of consolidation, collapse, or focal opacities. No pulmonary nodules are identified. No evidence of pleural effusion or pleural thickening. Heart and Mediastinum: Mildly enlarged heart. No mediastinal widening or masses. No hilar or mediastinal lymphadenopathy. Bony Thorax: Bony thorax appears intact without fractures or deformities. Soft Tissues: Soft tissues overlying the chest wall are unremarkable. IMPRESSION: 1. Compared to prior CXR on 12/17/2024 2. No apparent interval changes, unchanged signs of pulmonary congestion. 3. The NG tube is removed. Electronically signed by Tucker Navarro 03-31-2025 05:13 AM Hip/Pelvis X-Ray 03/31/25 04:04 EXAM: XR hip RT 2V w pelvis CLINICAL HISTORY: Fall, hip pain TECHNIQUE: X-ray images of the right hip joint were obtained in lateral projection, including pelvis AP view. COMPARISON: No prior studies available for comparison. FINDINGS: Pelvic Bones: Pelvic bones, including the iliac wings, ischium, pubis, and sacrum, are normal and intact. No evidence of fractures, dislocations, or significant osseous lesions. Hip Joints: Bilateral osteoarthritic changes with peripheral osteophytes formation Acetabular structures appear normal and intact. No signs of acetabular fracture or dysplasia. Femoral heads are normal and centered within the acetabulum. No evidence of fractures, avascular necrosis, or significant deformities. Sacroiliac joints, bilateral degenerative changes. Symphysis Pubis: Symphysis pubis is normal and intact. No evidence of separation or widening. Soft Tissues: Visualized soft tissues are normal and unremarkable. No soft tissue swelling, calcifications, or masses. Additional Findings: No other significant abnormalities were noted. IMPRESSION: 1. Bilateral osteoarthritic changes of both hips with marginal osteophytes arising from the acetabular root. 2. No definite evidence of acute fractures or dislocations; however, the study is underpenetrated due to body habitus; clinical correlation is needed DISCLAIMER:A subtle bone abnormality or fracture may not be readily apparent on x-rays, thus clinical correlation and further imaging including follow up CT, MRI, or follow up x-rays are advised as needed. Electronically signed by Tucker Navarro 03-31-2025 05:27 AM Diagnostic Findings EKG as per my interpretation :Rate 115, A-fib, LAD, LAFB, T wave abnormalities septal leads
[2025-03-31] MEDS ORDERED: PROMETHAZINE 6.25 MG/50.25 ML BAG IV PRN (06:10)
[2025-03-31] MEDS: LEVOTHYROXINE SODIUM 112 MCG TABLET PO STA (06:37)
[2025-03-31 06:49] LABS: Appearance Urine Turbid (Clear); Bacteria Urine Automated 4+ (None Seen); Glucose Urine UA Negative (Negative); RBC Urine Automated >20 /hpf (0-2); WBC Urine Automated >50 /hpf (0-5)
[2025-03-31 07:38] LABS: Cdiff Toxin B Gene (2yr or >) Negative Cdiff Gene (Neg)
[2025-03-31 07:54] LABS: Base Excess VBG 4.0 mEq/L; HCO3 VBG 30 mmol/L; Oxygen Saturation VBG < 60.0 %; PCO2 VBG 48 mmHg (38-50); PO2 VBG 27 mmHg; pH VBG 7.40 (7.36-7.41)
[2025-03-31 08:12] LABS: Adenovirus F 40/41 PCR Not Detected (NotDetected); Campylobacter PCR Not Detected (NotDetected); Enteroaggregative E.coli(EAEC) Not Detected (NotDetected); Shiga-like Toxin E.coli (STEC) Not Detected (NotDetected); Vibrio species PCR Not Detected (NotDetected)
[2025-03-31] MEDS ORDERED: CARBOHYDRATES FOR HYPOGLYCEMIA PO PRN (08:19)
[2025-03-31] MEDS ORDERED: GLUCOSE 40% GEL 15 GM TUBE PO PRN (08:19)
[2025-03-31] MEDS ORDERED: GLUCOSE 10 TAB/TUBE PO PRN (08:19)
[2025-03-31] MEDS ORDERED: GLUCAGON FOR INJ 1 MG VIAL SQ PRN (08:19)
[2025-03-31] MEDS ORDERED: DEXTROSE 50% 50 ML SYRINGE IV PRN (08:19)
[2025-03-31] MEDS: Albuterol HFA 8 GM Inhaler (Combivent Respimat P&T Subs) INH SCH (08:47)
[2025-03-31] MEDS: Ipratropium HFA Inhaler (Combivent Respimat P&T Subs) INH SCH (08:47)
[2025-03-31] MEDS: FLUTICASONE PROPIONATE NA SPR 16 GM BTL SCH (08:59)
[2025-03-31] MEDS ORDERED: IPRATROPIUM BROMIDE/ALBUTEROL respimat INH INH SCH (09:00)
[2025-03-31] MEDS: CEFEPIME 2000MG 2,000 MG/20 ML SYR IV SCH ×2 (09:00→20:50)
[2025-03-31] MEDS: DABIGATRAN ETEXILATE 75 MG CAP PO SCH (09:01)
[2025-03-31] MEDS: ADVANCED PROBIOTIC 625 MG CAPSULE PO SCH (09:02)
[2025-03-31] MEDS: ASPIRIN 81 MG ECTAB PO SCH (09:02)
[2025-03-31] MEDS: GABAPENTIN 600 MG TAB PO SCH (09:02)
[2025-03-31] MEDS: CHOLECALCIFEROL 125 MCG (5,000 UNITS) TAB PO SCH (09:02)
[2025-03-31] MEDS: LANTUS PER UNIT CHARGE SQ SCH (09:16)
[2025-03-31] MEDS: INSULIN ASPART PER UNIT CHARGE SC SCH (09:16)
[2025-03-31] MEDS: FAMOTIDINE 20 MG TAB PO SCH (09:40)
--- NOTE | 2025-03-31 11:59 | Electrocardiogram Report ---
Test Reason : Blood Pressure : */* mmHG Vent. Rate : 113 BPM Atrial Rate : * BPM P-R Int : * ms QRS Dur : 106 ms QT Int : 354 ms P-R-T Axes : * -74 73 degrees QTcB Int : 485 ms Atrial fibrillation with rapid ventricular response with premature ventricular or aberrantly conducte d complexes Left anterior fascicular block Poor R wave progression, consider anterior [place] vs. lead placement vs. LVH Abnormal ECG When compared with ECG of 27-Dec-2024 00:16, No significant change was found Confirmed by David Andujar ([id number]) on 03/31/2025 11:58:49 AM Referred By: REFERRED SELF Confirmed By: David Andujar
[2025-03-31] MEDS: ACETAMINOPHEN 500 MG TAB PO PRN (12:47)
--- NOTE | 2025-03-31 15:41 | Communication Note ---
Date of Service: March 31, 2025 Evaluated shortly after presenting to floor She states she generally feels weak all over, but denies any chest pain, or palpitations Patient lethargic on exam Irregularly irregular rates in 90s-100s Ms Araujo is a 69/o woman with PMHx significant for hypothyroidism, HLD, idiopathic chronic gout of multiple sites, PCOS, DMII, history ovarian cancer s/p right adnexal mass resection in 2019 - currently in remission, COPD, NAVI on 2L via OR HS, chronic atrial fibrillation anticoagulated on Pradaxa, HTN, morbid obesity, GERD, CKD stage IIIa, BPPV and depression with anxiety admitted 03/31 for sepsis 2/2 complicated UTI and a fib RVR #Sepsis secondary to complicated UTI history of pansensitive e coli and klebsiella continue cefepime follow cultures #LISA on CKD III Cr 1.33 avoid nephrotoxic agents Follow IVF monitor fluid status, hold home diuretic #Diarrhea rule out infectious causes stool pcr negative, c diff negative hold on loperamide if able with hx of sbo #Rapid A-fib secondary to illness and missed medications continue Pradaxa resume home medications improved rate control continue on tele #Troponin elevation secondary illness in the setting of kidney dysfunction, mild rhabdomyolysis from fall trend CK and trop #Hypokalemia replace as able, goal K >4 repeat bmp #COPD/NAVI on BiPAP bipap qhs
[2025-03-31 16:48] LABS: Anion Gap 8.0 (3-11); Blood Urea Nitrogen 39.0 mg/dl (6-23); Calcium 8.5 mg/dl (8.6-10.3); Carbon Dioxide 26.0 mmol/L (21-32); Chloride 100.0 mmol/L (98-107); Creatinine Clr Calc Pharmacy 57.1 ml/min; Glucose 171.0 mg/dl (70-99(Fasting)); Potassium 4.0 mmol/L (3.5-5.1); Sodium 134.0 mmol/L (136-145)
[2025-03-31] MEDS: METOPROLOL TARTRATE 25 MG TAB PO SCH (20:51)
[2025-03-31 21:17] LABS: A calco-baum cmplx NotReported Not Detected (NotDetected); Bact fragilis Not Reported Not Detected (NotDetected); Blood Culture Id Panel See PCR Comment (NotDetected); C auris Not Reported Not Detected (NotDetected); CTX-M Resistant Gene Not Detected (NotDetected); Calbicans Not Reported Not Detected (NotDetected); Candida glabrata Not Reported Not Detected (NotDetected); Candida krusei Not Reported Not Detected (NotDetected); Cneoformans/gatti Not Reported Not Detected (NotDetected); Cparapsilosis Not Reported Not Detected (NotDetected); Ctropicalis Not Reported Not Detected (NotDetected); E cloacae compx Not Reported Not Detected (NotDetected); Efaecalis Not Reported Not Detected (NotDetected); Efaecium Not Reported Not Detected (NotDetected); Enterobacterales DETECTED (NotDetected); Enterobacterales Not Reported DETECTED (NotDetected); Escherichia coli Not Reported DETECTED (NotDetected); H influenzae Not Reported Not Detected (NotDetected); IMP Resistant Gene Not Detected (NotDetected); K aerogenes Not Reported Not Detected (NotDetected); KPC Resistant Gene Not Detected (NotDetected); Koxytoca Not Reported Not Detected (NotDetected); Kpneumoniae grp Not Reported Not Detected (NotDetected); Lmonocyt Not Reported Not Detected (NotDetected); N meningitidis Not Reported Not Detected (NotDetected); NDM Resistant Gene Not Detected (NotDetected); OXA 48 Like Resistant Gene Not Detected (NotDetected); P aeruginosa Not Reported Not Detected (NotDetected); Proteus spp Not Reported Not Detected (NotDetected); Salmonella spp Not Reported Not Detected (NotDetected); Staph lugdunensis Not Reported Not Detected (NotDetected); Staph spp. Not Reported Not Detected (NotDetected); Staphaureus Not Reported Not Detected (NotDetected); Staphepi Not Reported Not Detected (NotDetected); Stenmaltophilia Not Reported Not Detected (NotDetected); Strep agal(GrpB) Not Reported Not Detected (NotDetected); Strep pneum Not Reported Not Detected (NotDetected); Strep pyog (GrpA) Not Reported Not Detected (NotDetected); Strep spp Not Reported Not Detected (NotDetected); VIM Resistant Gene Not Detected (NotDetected); mcr-1 Colistin Resistant Gene Not Detected (NotDetected)
--- NOTE | 2025-03-31 21:47 | Communication Note ---
Date of Service: March 31, 2025 Made aware by lab of gram-negative jess bacteremia on 2 bottles. E. coli gene positive. AP E. coli bacteremia Ceftriaxone in place of cefepime
[2025-04-01] MEDS: LEVOTHYROXINE SODIUM 112 MCG TABLET PO SCH (06:06)
[2025-04-01 06:23] LABS: Hematocrit (blood only) 37.7 % (37.0-47.0); Hemoglobin 12.7 g/dl (12.0-16.0); Immature Granulocytes # (auto) 0.05 K/uL (0.01-0.20); Immature Granulocytes % (auto) 0.4 %; Mean Corpuscular Hemoglobin 31.1 pg (25.0-34.0); Mean Corpuscular Volume 92.4 fL (80.0-100.0); Platelet Count 202 K/uL (130-400); RDW Standard Deviation 50.5 fL (36.4-46.3); Red Blood Count 4.08 M/uL (4.20-5.40); White Blood Count 12.29 K/ul (4.8-10.8)
[2025-04-01 06:37] LABS: Alanine Aminotransferase 49.0 U/L (7-52); Albumin Globulin Ratio 1.0 (0.9-2); Alkaline Phosphatase 80.0 U/L (34-104); Anion Gap 7.0 (3-11); Bilirubin,Total 0.8 mg/dl (0.2-1.0); Blood Urea Nitrogen 41.0 mg/dl (6-23); Calcium 8.5 mg/dl (8.6-10.3); Carbon Dioxide 30.0 mmol/L (21-32); Chloride 97.0 mmol/L (98-107); Creatine Kinase 246.0 U/L (26-192); Creatinine Clr Calc Pharmacy 59.7 ml/min; Globulin 3.0 gm/dl (2.5-4.0); Glucose 143.0 mg/dl (70-99(Fasting)); Potassium 4.0 mmol/L (3.5-5.1); Sodium 134.0 mmol/L (136-145); Total Protein 5.9 gm/dl (6.0-8.3)
[2025-04-01] MEDS: cefTRIAXone SODIUM 2,000 MG/50 ML BAG IV SCH (08:24)
--- NOTE | 2025-04-01 11:32 | Hospitalist Progress Note ---
Date of Service April 01, 2025 Assessment & Plan (1) Severe sepsis with acute organ dysfunction: (2) E coli bacteremia: (3) Urinary tract infection: (4) Acute metabolic encephalopathy: (5) Atrial fibrillation with RVR: (6) Demand ischemia: (7) Uncontrolled type 2 diabetes mellitus with hyperglycemia, with long-term current use of insulin: (8) HSV-1 (herpes simplex virus 1) infection: (9) COPD (chronic obstructive pulmonary disease): Plan Patient 70-year-old female presents with severe sepsis is evidenced by metabolic encephalopathy, atrial fibrillation with rapid ventricular response and some acute kidney dysfunction due to presumed urinary tract infection and subsequent E. coli bacteremia Continue IV Rocephin Continue to monitor both blood and urine cultures Increase metoprolol for better rate control, anticipate that her rate will become better controlled as the sepsis and bacteremia continues to be treated Activity as tolerated Therapies Case management of her discharge planning Continue to monitor glucose, cover with insulin Start acyclovir ointment for patient's sense that she may be starting out with the with a breakout of her HSV-1 infection on her lips Admission and Anticipated Discharge Date Admission Date: March 31, 2025 Subjective Patient feeling a little bit better. Not nearly as sleepy and confused. States that she does get cold sores on her lips and started to feel a tingling and burning on her lips now with the stress of the sepsis. Has used the antiviral ointment on her lips in the past. Physical Exam Physical Exam: Constitutional: Alert, nontoxic HEENT: Mucous membranes moist. No vesicles seen as of yet Lungs: Clear to auscultation, decreased, no wheezes rales or rhonchi CV: S1-S2, regular Abdomen: Soft, nontender, nondistended Extremities: No significant edema Neuro: No focal deficits Psych: Cooperative, normal mood, mentation seems to be baseline Results & Data Results & Data Vital Signs (Past 12 Hours) Vital Signs Temp Pulse Pulse Resp BP Pulse Ox O2 Del Method 04/01/25 11:15 99 H 18 93 Room Air 04/01/25 08:00 75 04/01/25 07:58 36.7 C 102 H 20 126/73 93 Room Air 04/01/25 07:09 94 H 17 98 Oxymask 04/01/25 04:00 36.8 C 95 H 20 128/81 95 Room Air 04/01/25 00:59 37.3 C O2 Flow Rate 04/01/25 11:15 04/01/25 08:00 04/01/25 07:58 04/01/25 07:09 3 04/01/25 04:00 04/01/25 00:59 Diagnostic Findings Reviewed imaging, laboratory and diagnostic studies. Pertinent findings as below. WBCs 12.2 Hemoglobin 12.7 Electrolytes stable Creatinine 1.20 Troponins reviewed, trending down Blood culture positive for E. coli (9) COPD (chronic obstructive pulmonary disease) COPD type: unspecified COPD Qualified Code(s): J44.9 - Chronic obstructive pulmonary disease, unspecified
[2025-04-01] MEDS: ACYCLOVIR 5% OINT 15 GM TUBE EXT SCH (12:02)
[2025-04-01] MEDS: METOPROLOL TARTRATE 25 MG TAB PO SCH (20:33)
[2025-04-01] MEDS: ACETAMINOPHEN 325 MG TAB PO PRN (20:41)
[2025-04-02 07:44] LABS: Hematocrit (blood only) 37.2 % (37.0-47.0); Hemoglobin 12.3 g/dl (12.0-16.0); Mean Corpuscular Hemoglobin 30.1 pg (25.0-34.0); Mean Corpuscular Volume 91.2 fL (80.0-100.0); Platelet Count 199 K/uL (130-400); RDW Standard Deviation 50.2 fL (36.4-46.3); Red Blood Count 4.08 M/uL (4.20-5.40); White Blood Count 9.30 K/ul (4.8-10.8)
[2025-04-02 08:08] LABS: Anion Gap 9.0 (3-11); Blood Urea Nitrogen 41.0 mg/dl (6-23); Calcium 8.5 mg/dl (8.6-10.3); Carbon Dioxide 26.0 mmol/L (21-32); Chloride 100.0 mmol/L (98-107); Creatinine Clr Calc Pharmacy 74.6 ml/min; Glucose 129.0 mg/dl (70-99(Fasting)); Magnesium 2.2 mg/dl (1.7-2.4); Potassium 3.6 mmol/L (3.5-5.1); Sodium 135.0 mmol/L (136-145)
[2025-04-02] MEDS: DICLOFENAC SOD 1% GEL 100 GM TUBE EXT SCH (12:23)
--- NOTE | 2025-04-02 13:26 | Hospitalist Progress Note ---
Date of Service April 02, 2025 Assessment & Plan (1) Severe sepsis with acute organ dysfunction: Plan: Resolved (2) E coli bacteremia: (3) Urinary tract infection: (4) Acute metabolic encephalopathy: Plan: Resolved (5) Atrial fibrillation with RVR: (6) Demand ischemia: (7) Uncontrolled type 2 diabetes mellitus with hyperglycemia, with long-term current use of insulin: (8) HSV-1 (herpes simplex virus 1) infection: (9) COPD (chronic obstructive pulmonary disease): Plan Patient 70-year-old female with E. coli bacteremia and severe sepsis due to a E. coli UTI. Patient is significantly improved. Continue IV ceftriaxone through today, can transition to oral antibiotics tomorrow based on sensitivities as discharge anticipated. Would treat with antibiotics for total 14 days including antibiotic days received in the hospital for gram-negative bacteremia. Case management pursuing authorization for [facility] placement Continue current medications for atrial fibrillation, rates now controlled that infection is under control. Continue monitor glucose cover with insulin Voltaren gel as needed for shoulder arthritis Continue with therapies [facility] to [facility] Phone update to patient's sister Annamarie while at the bedside with the patient Admission and Anticipated Discharge Date Admission Date: March 31, 2025 Subjective Patient continuing to feel better. Starting to get a little bit more energy. Is requesting some Voltaren gel for her shoulder which she uses at home. Patient states that her burning lips and early HSV-1 infection has significantly improved with the acyclovir ointment. Physical Exam Physical Exam: Constitutional: Alert, nontoxic HEENT: Mucous membranes moist., No visual vesicles noted Lungs: Decreased breath sounds, few rhonchi that clears with cough few wheezes that improved after inhaler CV: S1-S2, irregular Abdomen: Soft, nontender, nondistended, obese, ventral hernia Extremities: No significant edema, chronic wounds on lower extremity with dressings Neuro: No focal deficits Psych: Cooperative, normal mood Results & Data Results & Data Vital Signs (Past 12 Hours) Vital Signs Temp Pulse Pulse Resp BP Pulse Ox O2 Del Method 04/02/25 12:11 36.7 C 73 22 124/76 94 Room Air 04/02/25 11:19 70 15 94 Room Air 04/02/25 08:08 36.7 C 75 19 100/63 95 Room Air 04/02/25 08:00 54 L 04/02/25 07:16 62 14 98 Oxymask 04/02/25 03:13 36.4 C L 61 20 115/66 98 Oxymask O2 Flow Rate FiO2 04/02/25 12:11 04/02/25 11:19 21 04/02/25 08:08 04/02/25 08:00 04/02/25 07:16 5 04/02/25 03:13 5.0 Diagnostic Findings Reviewed imaging, laboratory and diagnostic studies. Pertinent findings as below. WBCs 9.3 Hemoglobin 12.3 Electrolytes stable Creatinine 0.96 Glucose was reviewed Urine culture growing pansensitive E. coli Blood cultures also growing pansensitive E. coli (9) COPD (chronic obstructive pulmonary disease) COPD type: unspecified COPD Qualified Code(s): J44.9 - Chronic obstructive pulmonary disease, unspecified
--- NOTE | 2025-04-03 08:22 | XRay Report ---
XR chest 1V portable CLINICAL HISTORY: worsening hypoxia COMPARISON STUDY: 03/31/2025 FINDINGS: Stable mild cardiomegaly with mild pulmonary vascular congestion. No consolidation or pleur al effusion seen. No pneumothorax. IMPRESSION: Stable mild CHF. ACT 112: Negative or not required by law. Electronically signed by: Oskar Kaufman M.D. 04/03/2025 8:21 AM
[2025-04-03] MEDS ORDERED: IPRATROPIUM BROMIDE HFA INHALER INH PRN (14:37)
[2025-04-03] MEDS ORDERED: ALBUTEROL HFA 8 GM INHALER INH PRN (14:37)
--- NOTE | 2025-04-03 14:52 | Hospitalist Progress Note ---
Date of Service April 03, 2025 Assessment & Plan (1) Severe sepsis with acute organ dysfunction: Plan: -Resolved -called [facility] for acute rehab, denied by insurance, pursue SNF -medically ready for discharge at this time (2) E coli bacteremia: Plan: -from complicated UTI -betts sensitive cultures, confirmed bacteremia in both cultures Plan: -finish 7 day course total with augmentin, stop ceftriaxone (3) Urinary tract infection: Plan: -see above (4) Acute metabolic encephalopathy: Plan: -Resolved (5) Atrial fibrillation with RVR: Plan: -rate controlled at this time -occasionally mildly bradycardic -f/u with cardiology outpatient (6) Demand ischemia: Plan: -resolved (7) Uncontrolled type 2 diabetes mellitus with hyperglycemia, with long-term current use of insulin: Plan: -SSI (8) HSV-1 (herpes simplex virus 1) infection: Plan: -continue acycylovir (9) COPD (chronic obstructive pulmonary disease): Plan: -continue inhalers Plan I spent a total of 50 minutes in direct patient care, including [id number] time with the patient and/or family, reviewing medical records, ordering and reviewing diagnostic tests, and coordinating care with other healthcare providers. This time includes: history taking, physical examination, medical decision making, counseling, ECG interpretation, imaging interpretation, lab interpretation, orders, and education, excluding time spent in the performance of separately billed services. Admission and Anticipated Discharge Date Admission Date: March 31, 2025 Subjective Patient seen and examined at bedside. Doing well at bedside. State she feels ready to go to rehab. Review of Systems Review of Systems: CONSTITUTIONAL: Patient denies fevers, chills, sweats and weight changes. EYES: Patient denies any visual symptoms. EARS, NOSE, AND THROAT: No difficulties with hearing. No symptoms of rhinitis or sore throat. CARDIOVASCULAR: Patient denies chest pains, palpitations, orthopnea and paroxysmal nocturnal dyspnea. RESPIRATORY: No dyspnea on exertion, no wheezing or cough. GI: No nausea, vomiting, diarrhea, constipation, abdominal pain, hematochezia or melena. : No urinary hesitancy or dribbling. No nocturia or urinary frequency. No abnormal urethral discharge. MUSCULOSKELETAL: hip pain NEUROLOGIC: No chronic headaches, no seizures. Patient denies numbness, tingling or weakness. PSYCHIATRIC: Patient denies problems with mood disturbance. No problems with anxiety. ENDOCRINE: No excessive urination or excessive thirst. DERMATOLOGIC: Patient denies any rashes or skin changes. Physical Exam Physical Exam: Gen: A&O 3 NAD, class III obesity HEENT: NCAT, EOMI, not icteric. External ears normal. No rhinorrhea. Moist mucous membranes. Neck: Supple, full range of motion, no observable masses, No meningeal sign. Lungs: No Respiratory distress. CV: RRR, no edema. Abdomen: Soft, nondistended, No rebound tenderness. MSK: No joint swelling, no redness. Skin: No rashes, petechiae, lesions. Normal color per patient. Neuro: Normal Gait, Grossly intact. Psych: Appropriate for situation. Very kind. Results & Data Results & Data Vital Signs (Past 12 Hours) Vital Signs Temp Pulse Pulse Resp BP Pulse Ox O2 Del Method 04/03/25 14:04 61 04/03/25 11:51 65 20 95 Room Air 04/03/25 11:47 36.6 C 67 20 106/51 L 96 Room Air 04/03/25 08:00 47 L 04/03/25 07:36 36.4 C L 68 18 112/67 98 Oxymask 04/03/25 06:59 82 22 94 Oxymask O2 Flow Rate 04/03/25 14:04 04/03/25 11:51 04/03/25 11:47 04/03/25 08:00 04/03/25 07:36 4 04/03/25 06:59 4.5 Medications Administered Acetaminophen (Acetaminophen 325 Mg Tab) 650 mg PO Q4H PRN PRN Reason: fever/pain Stop: 04/30/25 06:09 Last Admin: 04/01/25 20:41 Dose: 650 mg Documented By: SILVANO Acyclovir (Acyclovir 5% Oint 15 Gm Tube) 1 appln EXT 6XD [facility] Stop: 04/11/25 11:29 Last Admin: 04/03/25 12:15 Dose: 1 appln Documented By: Admin: 04/02/25 12:12 Dose: 1 appln Documented By: Admin: 04/01/25 12:02 Dose: 1 appln Documented By: PK Allopurinol (Allopurinol 100 Mg Tab) 100 mg PO BID [facility] Stop: 04/30/25 08:59 Last Admin: 04/03/25 08:06 Dose: 100 mg Documented By: Admin: 04/02/25 20:11 Dose: 100 mg Documented By: Admin: 04/02/25 08:48 Dose: 100 mg Documented By: Admin: 04/01/25 20:35 Dose: 100 mg Documented By: Admin: 04/01/25 08:25 Dose: 100 mg Documented By: Admin: 03/31/25 20:49 Dose: 100 mg Documented By: Admin: 03/31/25 09:02 Dose: 100 mg Documented By: JOE Aspirin (Aspirin 81 Mg Ectab) 81 mg PO QA [facility] Stop: 04/30/25 08:59 Last Admin: 04/03/25 08:06 Dose: 81 mg Documented By: Admin: 04/02/25 08:47 Dose: 81 mg Documented By: Admin: 04/01/25 08:25 Dose: 81 mg Documented By: Admin: 03/31/25 09:02 Dose: 81 mg Documented By: JOE Dabigatran (Dabigatran Etexilate 75 Mg Cap) 150 mg PO BID [facility] Stop: 04/30/25 08:59 Last Admin: 04/03/25 08:06 Dose: 150 mg Documented By: Admin: 04/02/25 20:11 Dose: 150 mg Documented By: Admin: 04/02/25 08:47 Dose: 150 mg Documented By: Admin: 04/01/25 20:37 Dose: 150 mg Documented By: Admin: 04/01/25 08:25 Dose: 150 mg Documented By: Admin: 03/31/25 20:49 Dose: 150 mg Documented By: Admin: 03/31/25 09:01 Dose: 150 mg Documented By: MARIVEL Diclofenac Sodium (Diclofenac Sod 1% Gel 100 Gm Tube) 2 gm EXT BID [facility]; Protocol Stop: 05/02/25 11:59 Last Admin: 04/03/25 08:06 Dose: 2 gm Documented By: Admin: 04/02/25 20:16 Dose: 2 gm Documented By: Admin: 04/02/25 12:23 Dose: 2 gm Documented By: PK Diltiazem HCl (Diltiazem Hcl 180 Mg Capcr) 360 mg PO DAILY [facility] Stop: 05/01/25 08:59 Last Admin: 04/03/25 08:06 Dose: 360 mg Documented By: Admin: 04/02/25 08:48 Dose: 360 mg Documented By: Admin: 04/01/25 08:25 Dose: 360 mg Documented By: PK Famotidine (Famotidine 20 Mg Tab) 20 mg PO BID [facility] Stop: 04/30/25 08:59 Last Admin: 04/03/25 08:13 Dose: 20 mg Documented By: Admin: 04/02/25 20:11 Dose: 20 mg Documented By: Admin: 04/02/25 08:51 Dose: 20 mg Documented By: Admin: 04/01/25 20:42 Dose: 20 mg Documented By: Admin: 04/01/25 08:34 Dose: 20 mg Documented By: Admin: 03/31/25 20:57 Dose: 20 mg Documented By: Admin: 03/31/25 09:40 Dose: 20 mg Documented By: JOE Fluticasone Propionate (Fluticasone Propionate Na Spr 16 Gm Btl) 1 sprays NA QAM [facility] Stop: 04/30/25 08:59 Last Admin: 04/03/25 08:05 Dose: 1 sprays Documented By: Admin: 04/02/25 08:47 Dose: 1 sprays Documented By: Admin: 04/01/25 08:24 Dose: 1 sprays Documented By: Admin: 03/31/25 08:59 Dose: 1 sprays Documented By: JOE Gabapentin (Gabapentin 600 Mg Tab) 600 mg PO TID [facility] Stop: 04/30/25 08:59 Last Admin: 04/03/25 14:18 Dose: 600 mg Documented By: Admin: 04/03/25 08:06 Dose: 600 mg Documented By: Admin: 04/02/25 20:11 Dose: 600 mg Documented By: Admin: 04/02/25 13:40 Dose: 600 mg Documented By: Admin: 04/02/25 08:48 Dose: 600 mg Documented By: Admin: 04/01/25 20:36 Dose: 600 mg Documented By: Admin: 04/01/25 13:54 Dose: 600 mg Documented By: Admin: 04/01/25 08:25 Dose: 600 mg Documented By: Admin: 03/31/25 20:49 Dose: 600 mg Documented By: Admin: 03/31/25 12:47 Dose: 600 mg Documented By: Admin: 03/31/25 09:02 Dose: 600 mg Documented By: GDH Gemfibrozil (Gemfibrozil 600 Mg Tab) 600 mg PO BID [facility] Stop: 04/30/25 08:59 Last Admin: 04/03/25 08:06 Dose: 600 mg Documented By: Admin: 04/02/25 20:11 Dose: 600 mg Documented By: Admin: 04/02/25 08:48 Dose: 600 mg Documented By: Admin: 04/01/25 20:36 Dose: 600 mg Documented By: Admin: 04/01/25 08:25 Dose: 600 mg Documented By: Admin: 03/31/25 20:49 Dose: 600 mg Documented By: Admin: 03/31/25 09:01 Dose: 600 mg Documented By: GDH Ceftriaxone Sodium (Rocephin) 2,000 mg in 50 mls @ 100 mls/hr IV Q24H [facility] Stop: 04/15/25 08:59 Last Infusion: 04/03/25 08:37 Dose: Infused Documented By: Admin: 04/03/25 08:05 Dose: 100 mls/hr Documented By: Infusion: 04/02/25 09:29 Dose: Infused Documented By: Admin: 04/02/25 08:48 Dose: 100 mls/hr Documented By: Infusion: 04/01/25 08:59 Dose: Infused Documented By: Admin: 04/01/25 08:24 Dose: 100 mls/hr Documented By: PK Insulin Aspart (Insulin Aspart Per Unit Charge) 0 units SC ACHS [facility] Stop: 04/30/25 08:18 Last Admin: 04/03/25 12:14 Dose: 4 units Documented By: PK Co-signed By: JOSSELYN Admin: 04/03/25 08:04 Dose: 4 units Documented By: PK Co-signed By: MARISSA Admin: 04/02/25 21:06 Dose: 2 units Documented By: ASM Co-signed By: AFRICA Admin: 04/02/25 16:44 Dose: 4 units Documented By: PK Co-signed By: JOSSELYN Admin: 04/02/25 12:11 Dose: 3 units Documented By: PK Co-signed By: BRIDGETTE Admin: 04/02/25 08:51 Dose: 4 units Documented By: PK Co-signed By: BRIDGETTE Admin: 04/01/25 20:58 Dose: 1 units Documented By: SILVANO Co-signed By: CITLALY Admin: 04/01/25 16:42 Dose: 3 units Documented By: PK Co-signed By: DONNY Admin: 04/01/25 11:58 Dose: 3 units Documented By: PK Co-signed By: BRIDGETTE Admin: 04/01/25 08:34 Dose: 5 units Documented By: PK Co-signed By: SHIRA Admin: 03/31/25 20:49 Dose: 2 units Documented By: LMP Co-signed By: AFRICA Admin: 03/31/25 17:11 Dose: 4 units Documented By: JOE Co-signed By: GANESH Admin: 03/31/25 12:01 Dose: 7 units Documented By: GDH Co-signed By: MARCOS Admin: 03/31/25 09:16 Dose: 4 units Documented By: GDAlex Co-signed By: SREEKANTH Insulin Glargine (Lantus Per Unit Charge) 10 units SQ BID [facility] Stop: 04/30/25 08:59 Last Admin: 04/03/25 08:07 Dose: 10 units Documented By: PK Co-signed By: MARISSA Admin: 04/02/25 21:07 Dose: 10 units Documented By: ASM Co-signed By: AFRICA Admin: 04/02/25 08:51 Dose: 10 units Documented By: PK Co-signed By: BRIDGETTE Admin: 04/01/25 20:58 Dose: 10 units Documented By: SILVANO Co-signed By: CITLALY Admin: 04/01/25 08:35 Dose: 10 units Documented By: PK Co-signed By: SHIRA Admin: 03/31/25 20:50 Dose: 10 units Documented By: LMP Co-signed By: AFRICA Admin: 03/31/25 09:16 Dose: 10 units Documented By: JOE Co-signed By: SREEKANTH Lactobacillus Acidophilus (Advanced Probiotic 625 Mg Capsule) 1,250 mg PO DAILY [facility] Stop: 04/30/25 08:59 Last Admin: 04/03/25 08:06 Dose: 1,250 mg Documented By: Admin: 04/02/25 08:47 Dose: 1,250 mg Documented By: Admin: 04/01/25 08:24 Dose: 1,250 mg Documented By: Admin: 03/31/25 09:02 Dose: 1,250 mg Documented By: JOE Levothyroxine Sodium (Levothyroxine Sodium 112 Mcg Tablet) 112 mcg PO DAILYBB [facility] Stop: 05/01/25 06:29 Last Admin: 04/03/25 06:18 Dose: 112 mcg Documented By: Admin: 04/02/25 05:13 Dose: 112 mcg Documented By: Admin: 04/01/25 06:06 Dose: 112 mcg Documented By: HANSA Metoprolol Tartrate (Metoprolol Tartrate 25 Mg Tab) 37.5 mg PO BID [facility] Stop: 05/01/25 20:59 Last Admin: 04/03/25 08:05 Dose: 37.5 mg Documented By: Admin: 04/02/25 20:11 Dose: Not Given Documented By: Admin: 04/02/25 08:47 Dose: 37.5 mg Documented By: Admin: 04/01/25 20:33 Dose: 37.5 mg Documented By: SILVANO Vitamin D (Cholecalciferol 125 Mcg (5,000 Units) Tab) 125 mcg PO DAILY [facility] Stop: 04/30/25 08:59 Last Admin: 04/03/25 08:06 Dose: 125 mcg Documented By: Admin: 04/02/25 08:48 Dose: 125 mcg Documented By: Admin: 04/01/25 08:25 Dose: 125 mcg Documented By: Admin: 03/31/25 09:02 Dose: 125 mcg Documented By: JOE (9) COPD (chronic obstructive pulmonary disease) COPD type: unspecified COPD Qualified Code(s): J44.9 - Chronic obstructive pulmonary disease, unspecified
[2025-04-03] MEDS: AMOXICILLIN/CLAVULANATE 875 MG TAB PO SCH (21:18)
[2025-04-04 06:02] LABS: Hematocrit (blood only) 35.7 % (37.0-47.0); Hemoglobin 11.9 g/dl (12.0-16.0); Mean Corpuscular Hemoglobin 30.4 pg (25.0-34.0); Mean Corpuscular Volume 91.3 fL (80.0-100.0); Platelet Count 255 K/uL (130-400); RDW Standard Deviation 49.7 fL (36.4-46.3); Red Blood Count 3.91 M/uL (4.20-5.40); White Blood Count 9.44 K/ul (4.8-10.8)
[2025-04-04 06:26] LABS: Anion Gap 9.0 (3-11); Blood Urea Nitrogen 34.0 mg/dl (6-23); Calcium 8.3 mg/dl (8.6-10.3); Carbon Dioxide 27.0 mmol/L (21-32); Chloride 102.0 mmol/L (98-107); Creatinine Clr Calc Pharmacy 92.8 ml/min; Glucose 123.0 mg/dl (70-99(Fasting)); Magnesium 2.1 mg/dl (1.7-2.4); Potassium 3.6 mmol/L (3.5-5.1); Sodium 138.0 mmol/L (136-145)
[2025-04-04 12:00] VITALS: BP 144/74; PULSE 55; RESP 16; TEMP 97.5; O2SAT 97
--- NOTE | 2025-04-04 12:40 | Discharge Summary ---
Discharge Summary Date of Service April 04, 2025 Principal Dx & Hospital Course #1 = Principal Diagnosis (1) Severe sepsis with acute organ dysfunction: -Resolved -called [facility] to peer for acute rehab, denied by insurance, pursue SNF -medically ready for discharge at this time (2) E coli bacteremia: -from complicated UTI -betts sensitive cultures, confirmed bacteremia in both cultures Plan: -finish 7 day course total with augmentin, stop ceftriaxone (3) Urinary tract infection: -see above (4) Acute metabolic encephalopathy: -Resolved (5) Atrial fibrillation with RVR: -rate controlled at this time -occasionally mildly bradycardic -f/u with cardiology outpatient (6) Demand ischemia: -resolved (7) Uncontrolled type 2 diabetes mellitus with hyperglycemia, with long-term current use of insulin: -SSI (8) HSV-1 (herpes simplex virus 1) infection: -continue acycylovir (9) COPD (chronic obstructive pulmonary disease): -continue inhalers Notes For Next Care Provider 70 yo female with pmhx of A-fib on Pradaxa, hypertension, COPD, NAVI on BiPAP, DM2 insulin requiring, hypothyroidism, ovarian cancer status post surgery, GERD, anxiety/mood disorder, morbid obesity, past tobacco abuse. who presented for fal l. Noted to be septic, admitted to medicine, blood cultures grew betts sensitive E. coli same as in urine. PT/OT evaluated patient, recommending rehab. Acyclovir started for HSV 1 breakout. On 04/04/2025 patient medically stable for discharge home. To do: [ ] f/u with cardiology about mild bradycardia Medication Changes From Visit -see below Admission HPI Per Admitting Provider History obtained from patient, family, and records. Medical history significant for A-fib on Pradaxa, hypertension, COPD, NAVI on BiPAP, DM2 insulin requiring, hypothyroidism, ovarian cancer status post surgery, GERD, anxiety/mood disorder, morbid obesity, past tobacco abuse. Last confinement December 2024 for small bowel obstruction secondary to ventral hernia. Resolved with conservative management. Patient fell at home resulting in her getting stuck between the bed and the night stand around noontime yesterday. Patient supposed to attend a family gathering. Patient unable to get up and get to her phone. Patient denies headache, chest pain, SOB, abdominal pain. Achy right hip pain. Does not think she passed out. Family wondered about patient because she missed outpatient receptionist and was not answering phone calls. Patient found at home late last night. EMS called to patient's home. Patient noted to be in rapid A-fib upon arrival in the ER. IV Lopressor administered at the ER. Patient noted to have diarrhea at the ER. 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 External ears normal. No rhinorrhea. Moist mucous membranes. Neck: Supple, full range of motion, no observable masses, No meningeal sign. Lungs: No Respiratory distress. CV: RRR, no edema. Abdomen: Soft, nondistended, No rebound tenderness. MSK: No joint swelling, no redness. Skin: No rashes, petechiae, lesions. Normal color per patient. Neuro: Normal Gait, Grossly intact. Psych: Appropriate for situation. Very kind. Updated Medication List Medication Instructions Recorded Confirmed Type allopurinol 100 mg tablet 100 mg PO BID 09/28/18 03/31/25 History aspirin 81 mg tablet,delayed 81 mg PO QAM 09/28/18 03/31/25 History release (Tiara Low Dose Aspirin) atorvastatin 40 mg tablet 40 mg PO HS 09/28/18 03/31/25 History gemfibrozil 600 mg tablet 600 mg PO BID 09/28/18 03/31/25 History levothyroxine 112 mcg tablet 112 mcg PO QAM 09/28/18 03/31/25 History mometasone 50 mcg/actuation nasal 1 - 2 spray intranasal QAM 09/28/18 03/31/25 History spray diclofenac sodium 1 % topical gel 2 g topical QID 12/09/18 03/31/25 History dabigatran etexilate 150 mg 150 mg PO BID #14 caps 04/17/22 03/31/25 Rx capsule (Pradaxa) pen needle, diabetic 31 gauge x #500 ea 11/07/23 12/07/24 Rx 5/16" (Clickfine Pen Needle) famotidine 20 mg tablet (Pepcid) 20 mg PO BID 11/10/23 03/31/25 History diltiazem HCl 360 mg capsule,24 360 mg PO DAILY 03/23/24 03/31/25 History hr,extended release blood-glucose sensor (Dexcom G6 12/07/24 03/31/25 History Sensor device) insulin lispro 100 unit/mL See Rx Instructions .Route .COMPLEX 12/07/24 03/31/25 History subcutaneous pen (Humalog KwikPen (U-100) Insulin) ipratropium 20 mcg-albuterol 100 1 puff inhalation QID 12/17/24 03/31/25 History mcg/actuation mist for inhalation (Combivent Respimat) silver sulfadiazine 1 % topical 1 applic topical DAILY 12/17/24 03/31/25 History cream magnesium glycinate 100 mg (as 250 mg PO DAILY 12/27/24 03/31/25 History glycinate) tablet gabapentin 600 mg tablet 600 mg PO TID #270 tabs 01/10/25 03/31/25 Rx cholecalciferol (vitamin D3) 125 125 mcg PO DAILY 03/31/25 03/31/25 History mcg (5,000 unit) tablet (Vitamin D3) coenzyme Q10 200 mg capsule 200 mg PO DAILY 03/31/25 03/31/25 History tirzepatide 5 mg/0.5 mL 5 mg subcut WK 03/31/25 03/31/25 History subcutaneous pen injector (Mounjaro) acyclovir 5 % topical ointment 1 applic EXT 6XD 5 days #5 grams 04/02/25 Rx (Zovirax) insulin glargine 100 unit/mL (3 10 unit (0.1 mL) subcut BID #0 mL 04/02/25 03/31/25 Rx mL) subcutaneous pen (Lantus Solostar U-100 Insulin) metoprolol tartrate 25 mg tablet 37.5 mg (1.5 x 25 mg) PO BID #90 04/02/25 Rx tabs amoxicillin 875 mg-potassium 1 tab PO Q8 4 days #12 tabs 04/04/25 Rx clavulanate 125 mg tablet diclofenac sodium 1 % topical gel 2 g EXT BID #100 grams 04/04/25 Rx (Voltaren Arthritis Pain) ondansetron 4 mg disintegrating 4 mg PO Q8H PRN nausea and 04/04/25 Rx tablet vomiting 5 days #14 tabs oxycodone 5 mg tablet 5 mg PO Q4H PRN pain #14 tabs 04/04/25 Rx Hospital Stay Data Consultations 03/31/25 04:47 ED Decision to Admit Stat Pending Results Patient Have Any Pending Studies at Discharge: No Discharge Instructions Given to Patient (Per Discharging Provider) Continue rehabilitation Follow-up with your outpatient providers as scheduled Total Time Total Time Spent Total Time Spent (In Minutes): I spent a total of 35 minutes in direct patient care, including [id number] time with the patient and/or family, reviewing medical records, ordering and reviewing diagnostic tests, and coordinating care with other healthcare providers. This time includes: history taking, physical examination, medical decision making, counseling, ECG interpretation, imaging interpretation, lab interpretation, orders, and education, excluding time spent in the performance of separately billed services.
== END 2025-04-04 13:07 | DRG 871 ==
LOC: ED 03:47 → 2S 06:05 → SUATTDRO 06:05 → 2S 07:39 → 2N 04-03 18:32

== ENCOUNTER 2025-05-01 14:21 | Observation (INO) ==
--- NOTE | 2025-05-01 15:13 | Emergency Department Note ---
Impression & Plan Accidental fall, Acute pain of left knee, Ambulatory dysfunction ED Provider Note NAME: NIKOLAI SANDOVAL AGE: 70 SEX: Female INFORMANT: Patient ED PROVIDER(S): Garett Mckeon MD CHIEF COMPLAINT: Fall PLAN: Disposition: Admitted Outpatient prescription management: none Referral: None MEDICAL DECISION MAKING: Patient presented after an accidental fall on a wet floor. She had struck her left knee in a twisting motion on the medial aspect. She had a small hematoma. She was unable to bear weight. Patient initially declined analgesia. She was sent for x-ray imaging. Ice applied. X-ray imaging did not reveal any obvious fracture or dislocation. Patient was placed in a knee immobilizer. She was reassessed. Patient did require significant assistance with walker ambulation. Discussed options with the patient and patient/outpatient. Given the patient's discomfort, instability with walking and other confounding medical issues further evaluation and management in the hospital was deemed appropriate. IV was established. Basic blood work was sent. Patient was given a dose of oral oxycodone and Zofran. She notes having no issues with oxycodone in the past. [facility] Case discussed and diagnostics were reviewed. Patient was evaluated in the ER for further management. Care/management discussed with: ED casement Level of care consideration(s): After review of the information above and other included data, I feel the patient requires care to admission Triage Nursing notes: reviewed and agree them. Vital Signs: reviewed and remarkable for no significant abnormalities Additional History obtained from: none Chronic Medical/Social Conditions affecting care: Anticoagulation, diabetes, MO Prior/ Outside/ External records reviewed: none Differential Diagnosis: Fracture, subluxation, dislocation, contusion, ligamentous injury, neurovascular, compartment syndrome, rhabdomyolysis, as well as other pathologies. Diagnostics, independently interpreted by me: ECG: none Cardiac Monitoring: none Medical decision rules: none Imaging studies: X-ray imaging of the left knee and femur looking for fracture or dislocation. HPI: 70 year old Female arrives for evaluation of a fall. This started about 2 hours ago and is described as accidental. Patient states that she slipped on the wet floor. She landed with a twisting motion on the left knee. She was unable to get up. The patient also notes the following associated symptoms, left knee swelling and pain. Patient also notes some mild discomfort in the left thigh.. The patient has used cold compresses for relieving factors. Current pain is rated as 6/10. Pt denies LOC, headache, visual changes, neck pain, chest pain, breathing difficulties, nausea, vomiting, abdominal pain, back pain, other extremity pain, numbness, weakness, open wounds, active bleeding, or other complaints. PAST MEDICAL HISTORY: See Below, A-fib, anticoagulated PAST SURGICAL HISTORY: See Below, SOCIAL HISTORY: See Below, non-smoker HOME MEDICATIONS: See Below ALLERGIES: See Below VITALS: See Below PHYSICAL EXAMINATION: GENERAL: Awake, alert, uncomfortable-appearing, in no distress HENT: Normocephalic, atraumatic. Oropharynx unremarkable. EYES: Normal conjunctiva. Sclera non-icteric. NECK: Inspection normal. Non-tender. Supple. No nuchal rigidity. FROM. No masses. RESPIRATORY: Clear to auscultation. No wheezes. No rales. Normal respiratory effort. CARDIAC: Normal rate. Normal rhythm. No murmurs. No rubs. Extremities warm and well perfused. Pulses equal. No JVD. GI: Soft, non-distended. No tenderness to palpation. No rebound or guarding. No masses. RECTAL: Deferred. MUSCULOSKELETAL: Right lower and both upper extremities are atraumatic. Examination of the left lower extremity reveals swelling and tenderness about the left knee as well as the mid thigh. Unable to fully assess the knee ligament stability given the patient's pain and swelling although there is moderate tenderness over the medial collateral. No gross instability appreciated. The left foot and ankle are nontender. The back is symmetrical on inspection without obvious abnormality. There is no CVA tenderness to palpation. No joint edema. LOWER EXTREMITIES: Calves are equal size bilaterally and non-tender. 1+ edema. No discoloration. NEURO: Normal sensorium. No sensory or motor deficits noted. SKIN: No rash or jaundice noted. PROCEDURES: none CRITICAL CARE: none OBSERVATION NOTE: none Past Med/Surg History Problem List (Updated 05/01/25 @ 17:46 by Garett Mckeon MD) Ambulatory dysfunction (Acute) Acute pain of left knee (Acute) Accidental fall (Acute) HSV-1 (herpes simplex virus 1) infection Demand ischemia Acute metabolic encephalopathy E coli bacteremia Severe sepsis with acute organ dysfunction Sepsis Acute hip pain (Acute) Elevated troponin (Acute) Rhabdomyolysis (Acute) Acute hypokalemia (Acute) Atrial fibrillation with RVR (Acute) LISA (acute kidney injury) (Acute) Acute dehydration (Acute) Ventral hernia History of ovarian cancer Chronic atrial fibrillation Abnormal urinalysis Abdominal wall hernia (Acute) SBO (small bowel obstruction) (Acute) Uncontrolled type 2 diabetes mellitus with hyperglycemia, with long-term current use of insulin Neuropathy, Mild Nephropathy, Macrovascular complications Diabetes mellitus type 2, controlled, with complications Neuropathy, Mild Nephropathy, Macrovascular History of colon polyps Genetic defect Obesity, morbid, BMI 50 or higher (Chronic) Renal lesion Chronic anticoagulation (Chronic) Ambulatory dysfunction (Chronic) Altered mental status (Chronic) HTN (hypertension) (Chronic) HLD (hyperlipidemia) (Chronic) COPD (chronic obstructive pulmonary disease) (Chronic) NAVI (obstructive sleep apnea) (Chronic) cpap Diabetic neuropathy (Chronic) GERD (gastroesophageal reflux disease) (Chronic) Depression (Chronic) Hypothyroid (Chronic) Gout (Chronic) Atrial fibrillation (Chronic) Medical History Elevated troponin Loss of protective sensation of skin of foot Rectal bleed Lower gastrointestinal hemorrhage Nausea and vomiting after administration of anesthetic agent Hx of ovarian cancer 2019- surgical intervention, no chemo or radiation-[facility] [place] Liver lesion Liver cell injury Ovarian cancer on right 28 lb R adnexal mass removed 07/22/19 Edema Closed head injury Syncope Leg wound, right Atrial fibrillation with rapid ventricular response (07/14/14) - follows w/ dr norris last visit 1 yr ago- takes pradaxa Surgical History S/P appendectomy during hysterectomy S/P hysterectomy Status post colonoscopy with polypectomy History of cholecystectomy History of hernia repair during hysterectomy Family History Father Myocardial infarction Coronary heart disease Diabetes Mother Complication of surgery Diabetes Sister Diabetes Sister Diabetes Brother Diabetes "Pre-diabetic" Sister Diabetes Sister Gestational diabetes Grandmother (Paternal) Diabetes Grandmother (Maternal) Diabetes Social History Smoking Status: Never smoker Cigarettes Per Day: 0; Second Hand Exposure: No; Do You Dip or Chew Tobacco: No; Hx Alcohol Use: No Hx Substance Use: No Preferred Language: Chadian Communication Ability: Effective Counselor Supervisor Required: No Beliefs That Will Affect Care: None marital status: / Current Living Situation: Alone Current Living Situation Comment: Lives at home with daugther, son in law and grandchildren Feels Safe at Home: Yes Assistive Devices: BiPap and Walker Allergies Allergies Allergy/AdvReac Type Severity Reaction Status Date / Time nickel Allergy Mild Redness of Verified 12/27/24 00:25 Skin IGN Inhibitors Allergy Unknown Unknown Verified 12/27/24 00:25 cat dander Allergy Unknown Unknown Verified 12/27/24 00:25 cockroach Allergy Unknown Unknown Verified 12/27/24 00:25 house dust Allergy Unknown Unknown Verified 12/27/24 00:25 pioglitazone Allergy Unknown Unknown Verified 12/27/24 00:25 tree and shrub pollen Allergy Unknown Unknown Verified 12/27/24 00:25 codeine AdvReac Mild Nausea Verified 12/27/24 00:25 hydrocodone AdvReac Mild Nausea Verified 12/27/24 00:25 meperidine AdvReac Mild Nausea Verified 12/27/24 00:25 morphine AdvReac Mild Nausea Verified 12/27/24 00:25 Home Meds Home Medications Medication Instructions Recorded Confirmed allopurinol 100 mg tablet 100 mg PO BID 09/28/18 03/31/25 aspirin 81 mg tablet,delayed 81 mg PO QAM 09/28/18 03/31/25 release (Tiara Low Dose Aspirin) atorvastatin 40 mg tablet 40 mg PO HS 09/28/18 03/31/25 gemfibrozil 600 mg tablet 600 mg PO BID 09/28/18 03/31/25 levothyroxine 112 mcg tablet 112 mcg PO QAM 09/28/18 03/31/25 mometasone 50 mcg/actuation nasal 1 - 2 spray intranasal QAM 09/28/18 03/31/25 spray diclofenac sodium 1 % topical gel 2 g topical QID 12/09/18 03/31/25 famotidine 20 mg tablet (Pepcid) 20 mg PO BID 11/10/23 03/31/25 diltiazem HCl 360 mg capsule,24 360 mg PO DAILY 03/23/24 03/31/25 hr,extended release blood-glucose sensor (Dexcom G6 12/07/24 03/31/25 Sensor device) insulin lispro 100 unit/mL See Rx Instructions .Route .COMPLEX 12/07/24 03/31/25 subcutaneous pen (Humalog KwikPen (U-100) Insulin) ipratropium 20 mcg-albuterol 100 1 puff inhalation QID 12/17/24 03/31/25 mcg/actuation mist for inhalation (Combivent Respimat) silver sulfadiazine 1 % topical 1 applic topical DAILY 12/17/24 03/31/25 cream magnesium glycinate 100 mg (as 250 mg PO DAILY 12/27/24 03/31/25 glycinate) tablet cholecalciferol (vitamin D3) 125 125 mcg PO DAILY 03/31/25 03/31/25 mcg (5,000 unit) tablet (Vitamin D3) coenzyme Q10 200 mg capsule 200 mg PO DAILY 03/31/25 03/31/25 tirzepatide 5 mg/0.5 mL 5 mg subcut WK 03/31/25 03/31/25 subcutaneous pen injector (Jess) Previous Rx's Medication Instructions Recorded dabigatran etexilate 150 mg 150 mg PO BID #14 caps 04/17/22 capsule (Pradaxa) pen needle, diabetic 31 gauge x #500 ea 11/07/2302/15" (Clickfine Pen Needle) gabapentin 600 mg tablet 600 mg PO TID #270 tabs 01/10/25 insulin glargine 100 unit/mL (3 10 unit (0.1 mL) subcut BID #0 mL 04/02/25 mL) subcutaneous pen (Lantus Solostar U-100 Insulin) metoprolol tartrate 25 mg tablet 37.5 mg (1.5 x 25 mg) PO BID #90 04/02/25 tabs diclofenac sodium 1 % topical gel 2 g EXT BID #100 grams 04/04/25 (Voltaren Arthritis Pain) oxycodone 5 mg tablet 5 mg PO Q4H PRN pain #14 tabs 04/04/25 Results & Data (ED) Vital Signs Vital Signs - 24 hr 05/01/25 14:31 05/01/25 14:31 05/01/25 14:31 Temperature 36.6 C Temperature Source Oral Pulse Rate 49 L Pulse Rate [Right Finger] 49 L 49 L Pulse Rhythm Regular Pulse Rhythm [Right Finger] Regular Regular Pulse Strength Normal Pulse Strength [Right Finger] Normal Normal Respiratory Rate 16 16 16 Respiratory Effort / Characteristics Non-Labored Non-Labored Non-Labored Respiratory Depth Normal Normal Normal Respiratory Pattern Regular Regular Regular Blood Pressure 101/70 Blood Pressure [Left Arm] 101/70 101/70 Blood Pressure Mean 80 Blood Pressure Mean [Left Arm] 80 80 Blood Pressure Position Lying Blood Pressure Position [Left Arm] Lying Lying Pulse Oximetry 93 93 93 Oxygen Delivery Method Room Air Room Air Room Air Sepsis Recent Fever Within 48 Hours No Sepsis New/Unexplained Change in Mental Status No Sepsis Action Taken by Nursing No Action Required 05/01/25 14:55 05/01/25 15:11 05/01/25 16:00 Temperature Temperature Source Pulse Rate 57 L Pulse Rate [Right Finger] 60 56 L Pulse Rhythm Pulse Rhythm [Right Finger] Pulse Strength Pulse Strength [Right Finger] Respiratory Rate 22 Respiratory Effort / Characteristics Non-Labored Respiratory Depth Normal Respiratory Pattern Blood Pressure Blood Pressure [Left Arm] 125/72 115/75 Blood Pressure Mean Blood Pressure Mean [Left Arm] 89 88 Blood Pressure Position Blood Pressure Position [Left Arm] Pulse Oximetry 95 94 Oxygen Delivery Method Room Air Room Air Sepsis Recent Fever Within 48 Hours Sepsis New/Unexplained Change in Mental Status Sepsis Action Taken by Nursing 05/01/25 16:05 Temperature Temperature Source Pulse Rate Pulse Rate [Right Finger] 49 L Pulse Rhythm Pulse Rhythm [Right Finger] Pulse Strength Pulse Strength [Right Finger] Respiratory Rate 21 Respiratory Effort / Characteristics Non-Labored Spontaneous Respiratory Depth Normal Respiratory Pattern Blood Pressure Blood Pressure [Left Arm] 115/75 Blood Pressure Mean Blood Pressure Mean [Left Arm] 88 Blood Pressure Position Blood Pressure Position [Left Arm] Pulse Oximetry 95 Oxygen Delivery Method Room Air Sepsis Recent Fever Within 48 Hours Sepsis New/Unexplained Change in Mental Status Sepsis Action Taken by Nursing Imaging Data Radiologist's Impression: Knee X-Ray 05/01/25 15:05 Clinical History: Pain. 2 views of the left knee are submitted for review. Findings: No fracture or dislocation is seen. No significant arthritic changes are noted. No other osseous abnormality is identified. There are no radiopaque foreign bodies. Impression: Unremarkable radiographs of the left knee Electronically signed by Lenard Headley 05-01-2025 5:18 PM Femur X-Ray 05/01/25 15:13 Clinical History: Pain. 7 views of the left femur are submitted for review. Findings: No fracture or dislocation is seen. No significant arthritic changes are noted. No other osseous abnormality is identified. There are no radiopaque foreign bodies. Impression: Unremarkable radiographs of the right femur Electronically signed by Lenard Headley 05-01-2025 5:17 PM Discharge Plan Visit Data Chief Complaint: Fall ED Provider: Garett Mckeon Discharge Problem: Accidental fall, Acute pain of left knee, Ambulatory dysfunction Patient Disposition: Home - Self-Care Condition: Good Forms Stand Alone Forms: My [facility], Important Visit Information Prescriptions Prescriptions: No Action (DME) pen needle, diabetic [Clickfine Pen Needle] 31 gauge x 5/16" needle See Rx Instructions .Route Qty: 500 3RF Rx Instructions: Use 5 per day gabapentin 600 mg tablet 600 mg PO TID Qty: 270 1RF diltiazem HCl 360 mg capsule,extended release 24 hr 360 mg PO DAILY insulin lispro [Humalog KwikPen Insulin] 100 unit/mL insulin pen See Rx Instructions .ROUTE .COMPLEX Rx Instructions: PER [facility]: 35 UNITS QAM PLUS SLIDING SCALE, 15 UNITS @ 1400 PLUS SLIDING SCALE, AND 30 UNITS Q EVENING PLUS SLIDING SCALE. PER D/C INSTRUCTIONS 12/20/24: 15 UNITS WITH MEALS. (DME) Dexcom G6 Sensor Device See Rx Instructions .ROUTE Rx Instructions: As directed atorvastatin 40 mg Tablet 40 mg PO HS allopurinol 100 mg Tablet 100 mg PO BID aspirin [Tiara Low Dose Aspirin] 81 mg Tablet,Delayed Release (Dr/Ec) 81 mg PO QAM gemfibrozil 600 mg Tablet 600 mg PO BID mometasone 50 mcg/actuation [place],Non-Aerosol 1 - 2 spray INTRANASAL QAM levothyroxine 112 mcg Tablet 112 mcg PO QAM diclofenac sodium 1 % gel 2 g topical QID dabigatran etexilate [Pradaxa] 150 mg Capsule 150 mg PO BID Qty: 14 0RF famotidine [Pepcid] 20 mg tablet 20 mg PO BID Mounjaro 5 mg/0.5 mL pen injector 5 mg SUBCUT WK Rx Instructions: inject 5mg SQ every 7 days coenzyme Q10 200 mg Capsule 200 mg PO DAILY cholecalciferol (vitamin D3) [Vitamin D3] 125 mcg (5,000 unit) Tablet 125 mcg PO DAILY metoprolol tartrate 25 mg Tablet 37.5 mg PO BID Qty: 90 0RF insulin glargine [Lantus Solostar U-100 Insulin] 100 unit/mL (3 mL) insulin pen 10 unit SUBCUT BID Qty: 0 0RF Rx Instructions: pt reports she takes 30Units twice daily. oxycodone 5 mg Tablet 5 mg PO Q4H PRN (Reason: pain) Qty: 14 0RF diclofenac sodium [Voltaren Arthritis Pain] 1 % Gel 2 g EXT BID Qty: 100 0RF silver sulfadiazine 1 % cream 1 applic TOPICAL DAILY Rx Instructions: RIGHT LOWER LEG WOUND; COVER WITH GAUZE Combivent Respimat 20-100 mcg/actuation mist 1 puff INHALATION QID magnesium glycinate 100 mg Tablet 250 mg PO DAILY Referrals Referrals: Mohsen Vazquez MD [Primary Care Provider] -
--- NOTE | 2025-05-01 17:18 | XRay Report ---
Clinical History: Pain. 7 views of the left femur are submitted for review. Findings: No fracture or dislocation is seen. No significant arthritic changes are noted. No other osseous abnormality is identified. There are no radiopaque foreign bodies. Impression: Unremarkable radiographs of the right femur Electronically signed by Lenard Headley 05-01-2025 5:17 PM
--- NOTE | 2025-05-01 17:19 | XRay Report ---
Clinical History: Pain. 2 views of the left knee are submitted for review. Findings: No fracture or dislocation is seen. No significant arthritic changes are noted. No other osseous abnormality is identified. There are no radiopaque foreign bodies. Impression: Unremarkable radiographs of the left knee Electronically signed by Lenard Headley 05-01-2025 5:18 PM
[2025-05-01] MEDS: ONDANSETRON 4 MG OD TAB PO STA (17:59)
[2025-05-01 18:19] LABS: Hematocrit (blood only) 35.8 % (37.0-47.0); Hemoglobin 11.8 g/dl (12.0-16.0); Immature Granulocytes # (auto) 0.08 K/uL (0.01-0.20); Immature Granulocytes % (auto) 0.7 %; Mean Corpuscular Hemoglobin 31.3 pg (25.0-34.0); Mean Corpuscular Volume 95.0 fL (80.0-100.0); Platelet Count 313 K/uL (130-400); RDW Standard Deviation 55.1 fL (36.4-46.3); Red Blood Count 3.77 M/uL (4.20-5.40); White Blood Count 11.97 K/ul (4.8-10.8)
[2025-05-01] MEDS ORDERED: GLUCOSE 10 TAB/TUBE PO PRN (18:20)
[2025-05-01] MEDS ORDERED: GLUCOSE 40% GEL 15 GM TUBE PO PRN (18:20)
[2025-05-01] MEDS ORDERED: GLUCAGON FOR INJ 1 MG VIAL SQ PRN (18:20)
[2025-05-01] MEDS ORDERED: CARBOHYDRATES FOR HYPOGLYCEMIA PO PRN (18:20)
[2025-05-01] MEDS ORDERED: DEXTROSE 50% 50 ML SYRINGE IV PRN (18:20)
[2025-05-01 18:36] LABS: Alanine Aminotransferase 19.0 U/L (7-52); Albumin Globulin Ratio 1.2 (0.9-2); Albumin Level 3.5 gm/dl (3.4-5.0); Alkaline Phosphatase 120.0 U/L (34-104); Anion Gap 8.0 (3-11); Bilirubin,Total 0.4 mg/dl (0.2-1.0); Blood Urea Nitrogen 15.0 mg/dl (6-23); Calcium 9.0 mg/dl (8.6-10.3); Carbon Dioxide 28.0 mmol/L (21-32); Chloride 106.0 mmol/L (98-107); Creatinine Clr Calc Pharmacy 93.1 ml/min; Globulin 2.9 gm/dl (2.5-4.0); Glucose 73.0 mg/dl (70-99(Fasting)); Potassium 3.3 mmol/L (3.5-5.1); Sodium 142.0 mmol/L (136-145); Total Protein 6.4 gm/dl (6.0-8.3)
--- NOTE | 2025-05-01 19:19 | History & Physical Report ---
Date of Service May 01, 2025 Assessment & Plan (1) Ambulatory dysfunction: (2) Acute pain of left knee: (3) Accidental fall: (4) Uncontrolled type 2 diabetes mellitus with hyperglycemia, with long-term current use of insulin: (5) NAVI (obstructive sleep apnea): (6) Atrial fibrillation: Plan 70 yo female with pmhx of A-fib on Pradaxa, hypertension, COPD, NAVI on BiPAP, DM2 insulin requiring, hypothyroidism, ovarian cancer status post surgery, GERD, anxiety/mood disorder, morbid obesity, past tobacco abuse who presents for fall which was mechanical in nature c/b left knee injury and ambulatory dysfunction. #Mechanical Fall #Left Knee Injury #Ambulatory Dysfunction -patient has significant left knee tenderness and swelling, was unable to bear weight well when ambulation attempted -suspect developing effusion with muscle/ligament injury in and around left knee -xray of left leg and knee unremarkable Plan: -hold pradaxa given concern for effusion -restart pending MR results -MR left knee ordered given inability to bear weight -ortho consult pending MR results -voltaren cream for left knee pain, ice ordered as well -oxycodone 5mg q4hr prn for severe knee pain -PT/OT ordered #Leukocytosis -likely reactive -monitor #Chronic Atrial Fibrillation -continue diltiazem -continue lasix -hold pradaxa overnight -continue metoprolol -replenish potassium #Class III Obesity -hold home mounjaro #Hypothyroidism -continue levothyroxine #DM Type 2 -continue home lantus, mealtime insulin -SSI -pharmacy consult given high doses of insulin #COPD -continue home inhalers #Gout -continue allopurinol #NAVI -on Bipap at home -on at home, ordered for here I spent a total of 70 minutes in direct patient care, including [id number] time with the patient and/or family, reviewing medical records, ordering and reviewing diagnostic tests, and coordinating care with other healthcare providers. This time includes: history taking, physical examination, medical decision making, counseling, ECG interpretation, imaging interpretation, lab interpretation, orders, and education, excluding time spent in the performance of separately billed services. History of Present Illness Chief Complaint: -left knee pain s/p fall Primary Care Provider: Mohsen Vazquez MD 70 yo female with pmhx of A-fib on Pradaxa, hypertension, COPD, NAVI on BiPAP, DM2 insulin requiring, hypothyroidism, ovarian cancer status post surgery, GERD, anxiety/mood disorder, morbid obesity, past tobacco abuse who presents for fall. Had recent admission this month for E. coli bacteremia 2/2 E. coli UTI. In the ED, xrays of the left knee unremarkable, tried to walk but was unable to, admitted to medicine for ambulatory dysfunction. Patient seen and examined at bedside. Sister present as well. Patient was doing well at home, grandchildren came over to play with her and spilled water, and patient slipped and fell. Came to ED with left knee pain, when attempting to walk was unable to walk. No other symptoms other than left knee swelling and pain. Allergies Allergy/AdvReac Type Severity Reaction Status Date / Time nickel Allergy Mild Redness of Verified 05/01/25 18:07 Skin GIN Inhibitors Allergy Unknown Unknown Verified 05/01/25 18:07 cat dander Allergy Unknown Unknown Verified 05/01/25 18:07 cockroach Allergy Unknown Unknown Verified 05/01/25 18:07 house dust Allergy Unknown Unknown Verified 05/01/25 18:07 pioglitazone Allergy Unknown Unknown Verified 05/01/25 18:07 tree and shrub pollen Allergy Unknown Unknown Verified 05/01/25 18:07 empagliflozin AdvReac Intermediate CAUSED Verified 05/01/25 18:16 [From Jardiance] UTI'S codeine AdvReac Mild Nausea Verified 05/01/25 18:07 hydrocodone AdvReac Mild Nausea Verified 05/01/25 18:07 meperidine AdvReac Mild Nausea Verified 05/01/25 18:07 morphine AdvReac Mild Nausea Verified 05/01/25 18:07 Home Medications Medication Instructions Recorded Confirmed Type allopurinol 100 mg tablet 100 mg PO BID 09/28/18 05/01/25 History atorvastatin 40 mg tablet 40 mg PO HS 09/28/18 05/01/25 History gemfibrozil 600 mg tablet 600 mg PO BID 09/28/18 05/01/25 History levothyroxine 112 mcg tablet 112 mcg PO DAILYBB 09/28/18 05/01/25 History mometasone 50 mcg/actuation nasal 1 - 2 spray intranasal QAM 09/28/18 05/01/25 History spray diclofenac sodium 1 % topical gel 2 g topical QID PRN Pain 12/09/18 05/01/25 History dabigatran etexilate 150 mg 150 mg PO BID #14 caps 04/17/22 05/01/25 Rx capsule (Pradaxa) pen needle, diabetic 31 gauge x #500 ea 11/07/23 12/07/24 Rx 5/16" (Clickfine Pen Needle) famotidine 20 mg tablet (Pepcid) 20 mg PO BID 11/10/23 05/01/25 History diltiazem HCl 360 mg capsule,24 360 mg PO DAILY 03/23/24 05/01/25 History hr,extended release blood-glucose sensor (Dexcom G6 12/07/24 03/31/25 History Sensor device) insulin lispro 100 unit/mL 15 unit subcut TIDM 12/07/24 05/01/25 History subcutaneous pen (Humalog KwikPen (U-100) Insulin) ipratropium 20 mcg-albuterol 100 1 puff inhalation QID 12/17/24 05/01/25 History mcg/actuation mist for inhalation (Combivent Respimat) gabapentin 600 mg tablet 600 mg PO TID #270 tabs 01/10/25 05/01/25 Rx coenzyme Q10 200 mg capsule 200 mg PO DAILY 03/31/25 05/01/25 History metoprolol tartrate 25 mg tablet 37.5 mg (1.5 x 25 mg) PO BID #90 04/02/25 05/01/25 Rx tabs albuterol sulfate 2.5 mg/3 mL 2.5 mg inhalation Q4H PRN Wheezing 05/01/25 05/01/25 History (0.083 %) solution for nebulization albuterol sulfate 90 mcg/actuation 2 puff inhalation Q4H PRN Wheezing 05/01/25 05/01/25 History aerosol inhaler cholecalciferol (vitamin D3) 25 25 mcg PO DAILY 05/01/25 05/01/25 History mcg (1,000 unit) capsule (Vitamin D3) furosemide 20 mg tablet (Lasix) 20 mg PO QAM 05/01/25 05/01/25 History insulin glargine 100 unit/mL (3 40 unit subcut BID 05/01/25 05/01/25 History mL) subcutaneous pen (Lantus Solostar U-100 Insulin) magnesium glycinate 120 mg (as 240 mg PO QAM 05/01/25 05/01/25 History glycinate) capsule tirzepatide 7.5 mg/0.5 mL 7.5 mg subcut WK 05/01/25 05/01/25 History subcutaneous pen injector (Jess) Past Med/Surg History Problem List (Updated 05/01/25 @ 17:46 by Garett Mckeon MD) Ambulatory dysfunction (Acute) Acute pain of left knee (Acute) Accidental fall (Acute) HSV-1 (herpes simplex virus 1) infection Demand ischemia Acute metabolic encephalopathy E coli bacteremia Severe sepsis with acute organ dysfunction Sepsis Acute hip pain (Acute) Elevated troponin (Acute) Rhabdomyolysis (Acute) Acute hypokalemia (Acute) Atrial fibrillation with RVR (Acute) LISA (acute kidney injury) (Acute) Acute dehydration (Acute) Ventral hernia History of ovarian cancer Chronic atrial fibrillation Abnormal urinalysis Abdominal wall hernia (Acute) SBO (small bowel obstruction) (Acute) Uncontrolled type 2 diabetes mellitus with hyperglycemia, with long-term current use of insulin Neuropathy, Mild Nephropathy, Macrovascular complications Diabetes mellitus type 2, controlled, with complications Neuropathy, Mild Nephropathy, Macrovascular History of colon polyps Genetic defect Obesity, morbid, BMI 50 or higher (Chronic) Renal lesion Chronic anticoagulation (Chronic) Ambulatory dysfunction (Chronic) Altered mental status (Chronic) HTN (hypertension) (Chronic) HLD (hyperlipidemia) (Chronic) COPD (chronic obstructive pulmonary disease) (Chronic) NAVI (obstructive sleep apnea) (Chronic) cpap Diabetic neuropathy (Chronic) GERD (gastroesophageal reflux disease) (Chronic) Depression (Chronic) Hypothyroid (Chronic) Gout (Chronic) Atrial fibrillation (Chronic) Medical History Elevated troponin Loss of protective sensation of skin of foot Rectal bleed Lower gastrointestinal hemorrhage Nausea and vomiting after administration of anesthetic agent Hx of ovarian cancer 2019- surgical intervention, no chemo or radiation-[facility] [place] Liver lesion Liver cell injury Ovarian cancer on right 28 lb R adnexal mass removed 07/22/19 Edema Closed head injury Syncope Leg wound, right Atrial fibrillation with rapid ventricular response (07/14/14) - follows w/ dr norris last visit 1 yr ago- takes pradaxa Surgical History S/P appendectomy during hysterectomy S/P hysterectomy Status post colonoscopy with polypectomy History of cholecystectomy History of hernia repair during hysterectomy Family History Father Myocardial infarction Coronary heart disease Diabetes Mother Complication of surgery Diabetes Sister Diabetes Sister Diabetes Brother Diabetes "Pre-diabetic" Sister Diabetes Sister Gestational diabetes Grandmother (Paternal) Diabetes Grandmother (Maternal) Diabetes Social History Smoking Status: Never smoker Cigarettes Per Day: 0; Second Hand Exposure: No; Do You Dip or Chew Tobacco: No; Hx Alcohol Use: No Hx Substance Use: No Preferred Language: Armenian Communication Ability: Effective 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 External ears normal. No rhinorrhea. Moist mucous membranes. Neck: Supple, full range of motion, no observable masses, No meningeal sign. Lungs: No Respiratory distress. CV: RRR, no edema. Abdomen: Soft, nondistended, No rebound tenderness. MSK: severe tenderness to palpation of left knee on medial/lateral joint lines, tenderness above left knee as well, edema noted Skin: No rashes, petechiae, lesions. Normal color per patient. Neuro: Normal Gait, Grossly intact. Psych: Appropriate for situation. Results & Data Results & Data Vital Signs (Past 12 Hours) Vital Signs Temp Pulse Pulse Resp BP BP Pulse Ox 05/01/25 19:00 58 L 21 106/71 94 05/01/25 18:29 54 L 05/01/25 18:00 50 L 22 114/74 95 05/01/25 18:00 50 L 22 114/74 96 05/01/25 17:00 58 L 22 119/77 95 05/01/25 16:05 49 L 21 115/75 95 05/01/25 16:00 56 L 20 115/75 94 05/01/25 15:11 60 22 125/72 95 05/01/25 14:55 57 L 05/01/25 14:31 49 L 16 101/70 93 05/01/25 14:31 49 L 16 101/70 93 05/01/25 14:31 36.6 C 49 L 16 101/70 93 O2 Del Method 05/01/25 19:00 Room Air 05/01/25 18:29 05/01/25 18:00 Room Air 05/01/25 18:00 Room Air 05/01/25 17:00 Room Air 05/01/25 16:05 Room Air 05/01/25 16:00 Room Air 05/01/25 15:11 Room Air 05/01/25 14:55 05/01/25 14:31 Room Air 05/01/25 14:31 Room Air 05/01/25 14:31 Room Air Laboratory Results -personally reviewed, mild leukocytosis could be reactionary to fall, K of 3.3 replenished Code Status & VTE Plan VTE Prophylaxis Plan VTE Prophylaxis will be ordered: No (6) Atrial fibrillation Atrial fibrillation type: chronic Qualified Code(s): I48.2 - Chronic atrial fibrillation
[2025-05-01] MEDS: POTASSIUM CHLORIDE CRTAB 20 MEQ TABCR PO STA (20:19)
[2025-05-01] MEDS ORDERED: ALBUTEROL 0.083% NEBU SOLN 3 ML VIAL INH PRN (20:40)
[2025-05-01] MEDS ORDERED: DICLOFENAC SOD 1% GEL 100 GM TUBE EXT PRN (20:40)
[2025-05-01] MEDS ORDERED: ONDANSETRON INJ 2 MG/ML 2 ML VIAL IV PRN (20:40)
[2025-05-01] MEDS ORDERED: IPRATROPIUM BROMIDE/ALBUTEROL respimat INH INH SCH (21:00)
[2025-05-01] MEDS: INSULIN ASPART PER UNIT CHARGE SC SCH (21:09)
[2025-05-01] MEDS: ATORVASTATIN 40 MG TAB PO SCH (21:58)
[2025-05-01] MEDS: GABAPENTIN 600 MG TAB PO SCH (21:59)
[2025-05-01] MEDS: LANTUS PER UNIT CHARGE SQ SCH (21:59)
[2025-05-01] MEDS: INSULIN ASPART PER UNIT CHARGE SQ SCH (21:59)
[2025-05-01] MEDS: METOPROLOL TARTRATE 25 MG TAB PO SCH (22:00)
[2025-05-01] MEDS: DICLOFENAC SOD 1% GEL 100 GM TUBE EXT SCH (23:34)
[2025-05-02] MEDS: LEVOTHYROXINE SODIUM 112 MCG TABLET PO SCH (05:26)
[2025-05-02] MEDS: GADOBUTROL 65ML VIAL IV ONE (06:10)
[2025-05-02] MEDS: Albuterol HFA 8 GM Inhaler (Combivent Respimat P&T Subs) INH SCH (07:08)
[2025-05-02] MEDS: Ipratropium HFA Inhaler (Combivent Respimat P&T Subs) INH SCH (07:08)
[2025-05-02] MEDS: CHOLECALCIFEROL 25 MCG (1000 UNITS) TAB PO SCH (07:40)
--- NOTE | 2025-05-02 07:40 | Magnetic Resonance Report ---
EXAM: MR knee LT wo/w con CLINICAL HISTORY: Severe left knee swelling, pain, and fall TECHNIQUE: Multiplanar multisequential MRI of the left knee joint was performed with and without contrast. 11cc Gadavist was administered intravenously. Images were sent through PACS for interpretation. COMPARISON: CR dated 05/01/2025was reviewed. FINDINGS: Bones: Patchy areas of marrow edmea is seen in the tibial plateau. Normal alignment of the femur, tibia, fibula, and patella. No fractures or dislocations. No lytic or sclerotic lesions. Normal enhancement post-contrast. Joints: Normal joint space without significant narrowing. No joint effusions or intra-articular loose bodies. Normal articular cartilage. Normal enhancement post-contrast. Menisci: Normal morphology and signal intensity of the medial and lateral menisci. No tears or meniscal degeneration. posterior horn lateral menniscus para mensical cyst 6 mm Ligaments: The ACL shows intrasubstance high signal near its insertion with no interruption of its fibers. THE medial collateral ligament is seen thickened with intrasubstance high signal Intact and normal appearance of the posterior cruciate ligament (PCL), and lateral collateral ligament (LCL). No ligamentous injury or abnormalities. Normal enhancement post-contrast. Tendons: The patellar tendon is seen thickened with an intrasubstance high signal, no complete interruption of its fibers Normal appearance of the patellar tendon, quadriceps tendon, and other tendons around the knee. Normal enhancement post-contrast. Soft Tissues: Subcutaneous collection measuring about 8x2.5 cm in its axial dimensions, exhibiting mixed T1 and T2 signal with areas of high T1 signal, with fluid fluid levels, and faint enhancement of the wall is seen Diffuse subcutaneous edema is seen. Muscles: The anterior lower thigh subcutaneous and intramuscular large cystic lesion measuring about 10x2.5 cm in its axial dimensions, exhibiting mixed T1 and T2 signal with areas of high T1 signal, with fluid fluid level faint enhancement of the wall is seen Edema of the anterior lower thigh muscle is seen. Diffuse knee muscular fatty atrophy. Neurovascular Structures: Normal appearance of the visualized neurovascular structures. No evidence of compression or abnormal signal changes. IMPRESSION: 1. Anterior lower thigh soft tissue large, muscular, and subcutaneous hematomas associated with muscle edema as described, MRI of the thigh is recommended to detect extension of the hematomas. 2. ACL grade II sprain/interstitial tear. 3. MCL grade I sprain. 4. Diffuse knee muscular fatty atrophy. 5. Patellar tendon tendiopathy. 6. Tibilal plateau marrow edmea . 7. Posterior horn lateral menniscus para mensical cyst. Electronically signed by Tucker Navarro 05-02-2025 07:40 AM
[2025-05-02] MEDS: FUROSEMIDE 20 MG TAB PO SCH (07:41)
--- NOTE | 2025-05-02 09:01 | Orthopedic Consultation ---
Date of Consultation May 02, 2025 Assessment & Plan (1) Traumatic hematoma of left knee: I discussed the MRI findings with the patient. I reassured her that there are no acute musculoskeletal injuries to her left knee. She does have a large hematoma secondary to trauma as well as her pre-existing anticoagulation. Recommend vascular surgery consult for evaluation and treatment of the hematoma. Orthopedics will sign off. (2) Chronic anticoagulation: History of Present Illness Reason for Consultation: Left knee pain Attending Physician: Florin Barfield MD History of Present Illness 70 yo female with pmhx of A-fib on Pradaxa, hypertension, COPD, NAVI on BiPAP, DM2 insulin requiring, hypothyroidism, ovarian cancer status post surgery, GERD, anxiety/mood disorder, morbid obesity, past tobacco abuse who presents for fall. Had recent admission this month for E. coli bacteremia 2/2 E. coli UTI. In the ED, xrays of the left knee unremarkable, tried to walk but was unable to, admitted to medicine for ambulatory dysfunction. Patient was doing well at home, grandchildren came over to play with her and spilled water, and patient slipped and fell. Came to ED with left knee pain, when attempting to walk was unable to walk. Patient underwent an MRI of her left knee overnight. Orthopedics was consulted for evaluation management of her left knee. Patient was seen and examined on the floor. He points to the anterior medial knee where she feels the pain. Pain is nonradiating. Denies any previous problems with the knee. She does have neuropathy in both of her feet but does not have any new changes to her sensibility in her lower extremities. She denies any fevers, chills, chest pain, shortness of breath, nausea or vomiting. Allergies Allergy/AdvReac Type Severity Reaction Status Date / Time nickel Allergy Mild Redness of Verified 05/01/25 18:07 Skin GIN Inhibitors Allergy Unknown Unknown Verified 05/01/25 18:07 cat dander Allergy Unknown Unknown Verified 05/01/25 18:07 cockroach Allergy Unknown Unknown Verified 05/01/25 18:07 house dust Allergy Unknown Unknown Verified 05/01/25 18:07 pioglitazone Allergy Unknown Unknown Verified 05/01/25 18:07 tree and shrub pollen Allergy Unknown Unknown Verified 05/01/25 18:07 empagliflozin AdvReac Intermediate CAUSED Verified 05/01/25 18:16 [From Jardiance] UTI'S codeine AdvReac Mild Nausea Verified 05/01/25 18:07 hydrocodone AdvReac Mild Nausea Verified 05/01/25 18:07 meperidine AdvReac Mild Nausea Verified 05/01/25 18:07 morphine AdvReac Mild Nausea Verified 05/01/25 18:07 Home Medications Medication Instructions Recorded Confirmed Type allopurinol 100 mg tablet 100 mg PO BID 09/28/18 05/01/25 History atorvastatin 40 mg tablet 40 mg PO HS 09/28/18 05/01/25 History gemfibrozil 600 mg tablet 600 mg PO BID 09/28/18 05/01/25 History levothyroxine 112 mcg tablet 112 mcg PO DAILYBB 09/28/18 05/01/25 History mometasone 50 mcg/actuation nasal 1 - 2 spray intranasal QAM 09/28/18 05/01/25 History spray diclofenac sodium 1 % topical gel 2 g topical QID PRN Pain 12/09/18 05/01/25 History dabigatran etexilate 150 mg 150 mg PO BID #14 caps 04/17/22 05/01/25 Rx capsule (Pradaxa) pen needle, diabetic 31 gauge x #500 ea 11/07/23 12/07/24 Rx 5/16" (Clickfine Pen Needle) famotidine 20 mg tablet (Pepcid) 20 mg PO BID 11/10/23 05/01/25 History diltiazem HCl 360 mg capsule,24 360 mg PO DAILY 03/23/24 05/01/25 History hr,extended release blood-glucose sensor (Dexcom G6 12/07/24 03/31/25 History Sensor device) insulin lispro 100 unit/mL 15 unit subcut TIDM 12/07/24 05/01/25 History subcutaneous pen (Humalog KwikPen (U-100) Insulin) ipratropium 20 mcg-albuterol 100 1 puff inhalation QID 12/17/24 05/01/25 History mcg/actuation mist for inhalation (Combivent Respimat) gabapentin 600 mg tablet 600 mg PO TID #270 tabs 01/10/25 05/01/25 Rx coenzyme Q10 200 mg capsule 200 mg PO DAILY 03/31/25 05/01/25 History metoprolol tartrate 25 mg tablet 37.5 mg (1.5 x 25 mg) PO BID #90 04/02/25 05/01/25 Rx tabs albuterol sulfate 2.5 mg/3 mL 2.5 mg inhalation Q4H PRN Wheezing 05/01/25 05/01/25 History (0.083 %) solution for nebulization albuterol sulfate 90 mcg/actuation 2 puff inhalation Q4H PRN Wheezing 05/01/25 05/01/25 History aerosol inhaler cholecalciferol (vitamin D3) 25 25 mcg PO DAILY 05/01/25 05/01/25 History mcg (1,000 unit) capsule (Vitamin D3) furosemide 20 mg tablet (Lasix) 20 mg PO QAM 05/01/25 05/01/25 History insulin glargine 100 unit/mL (3 40 unit subcut BID 05/01/25 05/01/25 History mL) subcutaneous pen (Lantus Solostar U-100 Insulin) magnesium glycinate 120 mg (as 240 mg PO QAM 05/01/25 05/01/25 History glycinate) capsule tirzepatide 7.5 mg/0.5 mL 7.5 mg subcut WK 05/01/25 05/01/25 History subcutaneous pen injector (Mounjaro) Patient History Medical History Elevated troponin Loss of protective sensation of skin of foot Rectal bleed Lower gastrointestinal hemorrhage Nausea and vomiting after administration of anesthetic agent Hx of ovarian cancer 2018- surgical intervention, no chemo or radiation-[facility] [place] Liver lesion Liver cell injury Ovarian cancer on right 28 lb R adnexal mass removed 07/22/19 Edema Closed head injury Syncope Leg wound, right Atrial fibrillation with rapid ventricular response (07/14/14) - follows w/ dr norris last visit 1 yr ago- takes pradaxa Surgical History S/P appendectomy during hysterectomy S/P hysterectomy Status post colonoscopy with polypectomy History of cholecystectomy History of hernia repair during hysterectomy Family History Father Myocardial infarction Coronary heart disease Diabetes Mother Complication of surgery Diabetes Sister Diabetes Sister Diabetes Brother Diabetes "Pre-diabetic" Sister Diabetes Sister Gestational diabetes Grandmother (Paternal) Diabetes Grandmother (Maternal) Diabetes Social History Smoking Status: Former smoker Tobacco Type: Cigarettes Cigarettes Per Day: 1-2; Smoking End Date: Quit in January of 1977.; Second Hand Exposure: Yes ( use to smoke.); Do You Dip or Chew Tobacco: No; Tobacco Cessation Education Requested by Patient: No Hx Alcohol Use: Yes Alcohol type: wine Hx Substance Use: No Preferred Language: Northern Irish Communication Ability: Effective 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 marital status: / Current Living Situation: Family Current Living Situation Comment: Lives with Sister in Law and . Other Information That Helps Us Care for You: No Feels Safe at Home: Yes Safety Concerns: Feels Safe At This Time Assistive Devices: BiPap, Hospital Bed, Oxygen - at Night and Walker Physical Exam Physical Exam: In general she is very pleasant female, alert and oriented x 3 in no acute distress. Left lower extremity exam reveals the patient have an area of swelling about the anterior medial knee measuring approximately 12 cm x 10 cm. Skin is intact in this location. She is tender to palpation here. She is able do a straight leg raise. Range of motion is limited secondary to pain actively from 5 to 25 degrees. Passively I can get her from 5 through 35 degrees. She has some decrease sensation to moving light touch in the dorsal and plantar aspects of her foot secondary to pre-existing neuropathy. 1+ pitting edema is noted in both legs above the ankles. Results & Data Vital Signs (Past 12 Hours) Vital Signs Temp Pulse Resp BP Pulse Ox O2 Del Method 05/02/25 07:15 36.5 C 69 16 120/71 90 Room Air 05/02/25 07:09 72 16 92 Room Air Diagnostic Findings I independently interpreted her MRI done overnight. Agree with the radiologist that there is a large subcutaneous hematoma over the anterior knee. There is no evidence of damage to the extensor mechanism. No fractures. She does have degenerative changes to the posterior horn of the medial meniscus that appear chronic. Cruciate and collateral ligaments are intact.
[2025-05-02 10:22] LABS: Hematocrit (blood only) 33.5 % (37.0-47.0); Hemoglobin 10.6 g/dl (12.0-16.0); Mean Corpuscular Hemoglobin 30.1 pg (25.0-34.0); Mean Corpuscular Volume 95.2 fL (80.0-100.0); Platelet Count 277 K/uL (130-400); RDW Standard Deviation 55.8 fL (36.4-46.3); Red Blood Count 3.52 M/uL (4.20-5.40); White Blood Count 11.06 K/ul (4.8-10.8)
[2025-05-02 10:29] LABS: Anion Gap 7.0 (3-11); Blood Urea Nitrogen 15.0 mg/dl (6-23); Calcium 8.5 mg/dl (8.6-10.3); Carbon Dioxide 29.0 mmol/L (21-32); Chloride 106.0 mmol/L (98-107); Creatinine Clr Calc Pharmacy 87.2 ml/min; Glucose 127.0 mg/dl (70-99(Fasting)); Potassium 3.9 mmol/L (3.5-5.1); Sodium 142.0 mmol/L (136-145)
--- NOTE | 2025-05-02 14:26 | Consultation ---
Date of Consultation May 02, 2025 Assessment & Plan (1) Traumatic hematoma of left knee: No vascular intervention needed at this time. If hematoma enlarges and hgb has a significant drop would either consult IR for possible intervention. Thank you very much for letting us participate in the care of this patient. History of Present Illness Reason for Consultation: Left knee hematoma Attending Physician: Florin Barfield MD History of Present Illness This is a 70 yo female with pmhx of A-fib, hypertension, COPD, NAVI on BiPAP, DM2 insulin requiring, hypothyroidism, ovarian cancer status post surgery, GERD, anxiety/mood disorder, morbid obesity, past tobacco abuse. She presented with inability of walk secondary to a fall on her left knee on a wet floor. She is on Pradaxa for her afib. She did have a 1gm drop in hgb post trauma. Allergies Allergy/AdvReac Type Severity Reaction Status Date / Time nickel Allergy Mild Redness of Verified 05/01/25 18:07 Skin GIN Inhibitors Allergy Unknown Unknown Verified 05/01/25 18:07 cat dander Allergy Unknown Unknown Verified 05/01/25 18:07 cockroach Allergy Unknown Unknown Verified 05/01/25 18:07 house dust Allergy Unknown Unknown Verified 05/01/25 18:07 pioglitazone Allergy Unknown Unknown Verified 05/01/25 18:07 tree and shrub pollen Allergy Unknown Unknown Verified 05/01/25 18:07 empagliflozin AdvReac Intermediate CAUSED Verified 05/01/25 18:16 [From Jardiance] UTI'S codeine AdvReac Mild Nausea Verified 05/01/25 18:07 hydrocodone AdvReac Mild Nausea Verified 05/01/25 18:07 meperidine AdvReac Mild Nausea Verified 05/01/25 18:07 morphine AdvReac Mild Nausea Verified 05/01/25 18:07 Home Medications Medication Instructions Recorded Confirmed Type allopurinol 100 mg tablet 100 mg PO BID 09/28/18 05/01/25 History atorvastatin 40 mg tablet 40 mg PO HS 09/28/18 05/01/25 History gemfibrozil 600 mg tablet 600 mg PO BID 09/28/18 05/01/25 History levothyroxine 112 mcg tablet 112 mcg PO DAILYBB 09/28/18 05/01/25 History mometasone 50 mcg/actuation nasal 1 - 2 spray intranasal QAM 09/28/18 05/01/25 History spray diclofenac sodium 1 % topical gel 2 g topical QID PRN Pain 12/09/18 05/01/25 History dabigatran etexilate 150 mg 150 mg PO BID #14 caps 04/17/22 05/01/25 Rx capsule (Pradaxa) pen needle, diabetic 31 gauge x #500 ea 11/07/23 12/07/24 Rx 5/16" (Clickfine Pen Needle) famotidine 20 mg tablet (Pepcid) 20 mg PO BID 11/10/23 05/01/25 History diltiazem HCl 360 mg capsule,24 360 mg PO DAILY 03/23/24 05/01/25 History hr,extended release blood-glucose sensor (Dexcom G6 12/07/24 03/31/25 History Sensor device) insulin lispro 100 unit/mL 15 unit subcut TIDM 12/07/24 05/01/25 History subcutaneous pen (Humalog KwikPen (U-100) Insulin) ipratropium 20 mcg-albuterol 100 1 puff inhalation QID 12/17/24 05/01/25 History mcg/actuation mist for inhalation (Combivent Respimat) gabapentin 600 mg tablet 600 mg PO TID #270 tabs 01/10/25 05/01/25 Rx coenzyme Q10 200 mg capsule 200 mg PO DAILY 03/31/25 05/01/25 History metoprolol tartrate 25 mg tablet 37.5 mg (1.5 x 25 mg) PO BID #90 04/02/25 05/01/25 Rx tabs albuterol sulfate 2.5 mg/3 mL 2.5 mg inhalation Q4H PRN Wheezing 05/01/25 05/01/25 History (0.083 %) solution for nebulization albuterol sulfate 90 mcg/actuation 2 puff inhalation Q4H PRN Wheezing 05/01/25 05/01/25 History aerosol inhaler cholecalciferol (vitamin D3) 25 25 mcg PO DAILY 05/01/25 05/01/25 History mcg (1,000 unit) capsule (Vitamin D3) furosemide 20 mg tablet (Lasix) 20 mg PO QAM 05/01/25 05/01/25 History insulin glargine 100 unit/mL (3 40 unit subcut BID 05/01/25 05/01/25 History mL) subcutaneous pen (Lantus Solostar U-100 Insulin) magnesium glycinate 120 mg (as 240 mg PO QAM 05/01/25 05/01/25 History glycinate) capsule tirzepatide 7.5 mg/0.5 mL 7.5 mg subcut WK 05/01/25 05/01/25 History subcutaneous pen injector (Mounjaro) Patient History Medical History Elevated troponin Loss of protective sensation of skin of foot Rectal bleed Lower gastrointestinal hemorrhage Nausea and vomiting after administration of anesthetic agent Hx of ovarian cancer 2019- surgical intervention, no chemo or radiation-[facility] 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[employer] [place] Liver lesion Liver cell injury Ovarian cancer on right 28 lb R adnexal mass removed 07/22/19 Edema Closed head injury Syncope Leg wound, right Atrial fibrillation with rapid ventricular response (07/14/14) - follows w/ dr norris last visit 1 yr ago- takes pradaxa Surgical History S/P appendectomy during hysterectomy S/P hysterectomy Status post colonoscopy with polypectomy History of cholecystectomy History of hernia repair during hysterectomy Family History Father Myocardial infarction Coronary heart disease Diabetes Mother Complication of surgery Diabetes Sister Diabetes Sister Diabetes Brother Diabetes "Pre-diabetic" Sister Diabetes Sister Gestational diabetes Grandmother (Paternal) Diabetes Grandmother (Maternal) Diabetes Social History Smoking Status: Former smoker Tobacco Type: Cigarettes Cigarettes Per Day: 1-2; Smoking End Date: Quit in January of 1977.; Second Hand Exposure: Yes ( use to smoke.); Do You Dip or Chew Tobacco: No; Tobacco Cessation Education Requested by Patient: No Hx Alcohol Use: Yes Alcohol type: wine Hx Substance Use: No Preferred Language: Estonian Communication Ability: Effective Assisted Living Associate Required: No Beliefs That Will Affect Care: Denominational Denominational Beliefs: Born again Buddhism. marital status: / Current Living Situation: Family Current Living Situation Comment: Lives with Sister in Law and . Other Information That Helps Us Care for You: No Feels Safe at Home: Yes Safety Concerns: Feels Safe At This Time Assistive Devices: BiPap, Cane and Walker Review of Systems Review of Systems: All systems reviewed & are unremarkable except as noted in HPI & below Physical Exam 2 Constitutional: WD/WN, vitals as above Respiratory: normal respiratory effort; no respiratory distress Cardiovascular: Rate/Rhythm: regular rate and regular rhythm Vessels: posterior tibial pulses present and dorsalis pedis pulses present Skin: hematoma left lower extremity Neurologic: CN's II-XI intact bilaterally and moves all extremities Psychiatric: A+Ox3, euthymic affect Results & Data Vital Signs (Past 12 Hours) Vital Signs Temp Pulse Resp BP Pulse Ox O2 Del Method 05/02/25 14:19 36.6 C 73 16 114/83 94 Room Air 05/02/25 11:55 Room Air 05/02/25 10:53 72 16 93 Room Air 05/02/25 07:40 Room Air, Nasal Cannula, BiPAP 05/02/25 07:15 36.5 C 69 16 120/71 90 Room Air 05/02/25 07:09 72 16 92 Room Air
--- NOTE | 2025-05-02 14:50 | Hospitalist Progress Note ---
Date of Service May 02, 2025 Assessment & Plan (1) Ambulatory dysfunction: (2) Acute pain of left knee: (3) Accidental fall: (4) Uncontrolled type 2 diabetes mellitus with hyperglycemia, with long-term current use of insulin: (5) NAVI (obstructive sleep apnea): (6) Atrial fibrillation: Plan 70 yo female with pmhx of A-fib on Pradaxa, hypertension, COPD, NAVI on BiPAP, DM2 insulin requiring, hypothyroidism, ovarian cancer status post surgery, GERD, anxiety/mood disorder, morbid obesity, past tobacco abuse who presents for fall which was mechanical in nature c/b left knee injury and ambulatory dysfunction. #Mechanical Fall Left knee hematoma -patient has significant left knee tenderness and swelling, was unable to bear weight well when ambulation attempted -xray of left leg and knee unremarkable -knee MRI shows large muscular and subcutaneous hematoma with associated muscle edema, ACL grade 2 sprain, MCL grade 1 sprain. Plan: Continue to hold Pradaxa. Orthopedic and vascular surgery was consulted for comanagement Continue pain control PT OT eval; might need rehab #Leukocytosis -likely reactive -monitor #Chronic Atrial Fibrillation -continue diltiazem -continue lasix -continue metoprolol -replenish potassium #Class III Obesity -hold home mounjaro #Hypothyroidism -continue levothyroxine #DM Type 2 -continue home lantus, mealtime insulin -SSI -pharmacy consult given high doses of insulin #COPD -continue home inhalers #Gout -continue allopurinol #NAVI -on Bipap at home -on at home, ordered for here Time spent evaluating patient, direct bedside care, chart review, placing ord ers, interpretation of diagnostic studies, discussion with consultants, patient, and family members, as well as other required patient management activities is 50 minutes Please note the above document was generated using voice recognition software. It may contain grammatical, syntax or spelling errors. Any formal questions or concerns about the content, text or information contained within the body of this dictation should be directly addressed to the provider for clarification Admission and Anticipated Discharge Date Admission Date: May 01, 2025 Subjective patient seen and examined at bedside. She reports that her pain is well- controlled. She denies any fever, chills, chest pain, abdominal pain or urinary symptoms. Review of Systems Review of Systems: All systems reviewed & are unremarkable except as noted in Subjective Physical Exam Physical Exam: Gen: A&O 3 NAD, class III obesity HEENT: NCAT, EOMI, not icteric. External ears normal. No rhinorrhea. Moist mucous membranes. Neck: Supple, full range of motion, no observable masses, No meningeal sign. Lungs: No Respiratory distress. CV: RRR, no edema. Abdomen: Soft, nondistended, No rebound tenderness. MSK: Significant swelling present on left knee with painful ROM. Skin: No rashes, petechiae, lesions. Normal color per patient. Neuro: Normal Gait, Grossly intact. Psych: Appropriate for situation. Results & Data Results & Data Vital Signs (Past 12 Hours) Vital Signs Temp Pulse Resp BP Pulse Ox O2 Del Method 05/02/25 14:19 36.6 C 73 16 114/83 94 Room Air 05/02/25 11:55 Room Air 05/02/25 10:53 72 16 93 Room Air 05/02/25 07:40 Room Air, Nasal Cannula, BiPAP 05/02/25 07:15 36.5 C 69 16 120/71 90 Room Air 05/02/25 07:09 72 16 92 Room Air (6) Atrial fibrillation Atrial fibrillation type: chronic Qualified Code(s): I48.2 - Chronic atrial fibrillation
[2025-05-02] MEDS: ACETAMINOPHEN 325 MG TAB PO PRN (17:32)
[2025-05-02 21:40] LABS: Hematocrit (blood only) 32.4 % (37.0-47.0); Hemoglobin 10.5 g/dl (12.0-16.0); Immature Granulocytes # (auto) 0.06 K/uL (0.01-0.20); Immature Granulocytes % (auto) 0.5 %; Mean Corpuscular Hemoglobin 31.1 pg (25.0-34.0); Mean Corpuscular Volume 95.9 fL (80.0-100.0); Platelet Count 265 K/uL (130-400); RDW Standard Deviation 55.3 fL (36.4-46.3); Red Blood Count 3.38 M/uL (4.20-5.40); White Blood Count 12.16 K/ul (4.8-10.8)
[2025-05-03 06:35] LABS: Hematocrit (blood only) 32.4 % (37.0-47.0); Hemoglobin 10.2 g/dl (12.0-16.0); Immature Granulocytes # (auto) 0.06 K/uL (0.01-0.20); Immature Granulocytes % (auto) 0.5 %; Mean Corpuscular Hemoglobin 30.4 pg (25.0-34.0); Mean Corpuscular Volume 96.7 fL (80.0-100.0); Platelet Count 267 K/uL (130-400); RDW Standard Deviation 55.8 fL (36.4-46.3); Red Blood Count 3.35 M/uL (4.20-5.40); White Blood Count 12.43 K/ul (4.8-10.8)
[2025-05-03 06:51] LABS: Anion Gap 8.0 (3-11); Blood Urea Nitrogen 20.0 mg/dl (6-23); Calcium 8.2 mg/dl (8.6-10.3); Carbon Dioxide 26.0 mmol/L (21-32); Chloride 106.0 mmol/L (98-107); Creatinine Clr Calc Pharmacy 71.6 ml/min; Glucose 101.0 mg/dl (70-99(Fasting)); Potassium 3.9 mmol/L (3.5-5.1); Sodium 140.0 mmol/L (136-145)
[2025-05-03] MEDS ORDERED: ALBUTEROL HFA 8 GM INHALER INH PRN (09:59)
[2025-05-03] MEDS ORDERED: IPRATROPIUM BROMIDE HFA INHALER INH PRN (09:59)
[2025-05-03] MEDS: HEPARIN SOD 5,000 UNIT/0.5 ML VIAL SQ SCH (13:44)
--- NOTE | 2025-05-03 15:50 | Hospitalist Progress Note ---
Date of Service May 03, 2025 Assessment & Plan (1) Ambulatory dysfunction: (2) Acute pain of left knee: (3) Accidental fall: (4) Uncontrolled type 2 diabetes mellitus with hyperglycemia, with long-term current use of insulin: (5) NAVI (obstructive sleep apnea): (6) Atrial fibrillation: Plan 70 yo female with pmhx of A-fib on Pradaxa, hypertension, COPD, NAVI on BiPAP, DM2 insulin requiring, hypothyroidism, ovarian cancer status post surgery, GERD, anxiety/mood disorder, morbid obesity, past tobacco abuse who presents for fall which was mechanical in nature c/b left knee injury and ambulatory dysfunction. #Mechanical Fall Left knee and thigh hematoma Acute blood loss anemia -patient has significant left knee tenderness and swelling, was unable to bear weight well when ambulation attempted -xray of left leg and knee unremarkable -knee MRI shows large muscular and subcutaneous hematoma with associated muscle edema, ACL grade 2 sprain, MCL grade 1 sprain. Plan: Continue to hold Pradaxa. Orthopedic and vascular surgery was consulted for comanagement; no intervention for the time being. Will start her on subacute heparin for DVT prophylaxis and monitor hemoglobin for next couple of days. Continue pain control PT OT eval; might need rehab #Leukocytosis -likely reactive -monitor #Chronic Atrial Fibrillation -continue diltiazem -continue lasix -continue metoprolol -replenish potassium #Class III Obesity -hold home mounjaro #Hypothyroidism -continue levothyroxine #DM Type 2 -continue home lantus, mealtime insulin -SSI -pharmacy consult given high doses of insulin #COPD -continue home inhalers #Gout -continue allopurinol #NAVI -on Bipap at home -on at home, ordered for here DVT prophylaxis- heparin full code Time spent evaluating patient, direct bedside care, chart review, placing orders, interpretation of diagnostic studies, discussion with consultants, patient, and family members, as well as other required patient management activities is 50 minutes Please note the above document was generated using voice recognition software. It may contain grammatical, syntax or spelling errors. Any formal questions or concerns about the content, text or information contained within the body of this dictation should be directly addressed to the provider for clarification Admission and Anticipated Discharge Date Admission Date: May 01, 2025 Subjective Patient seen and examined at bedside. She is lying in the bed comfortably; r eports pain on minimal movement of her legs. Review of Systems Review of Systems: All systems reviewed & are unremarkable except as noted in Subjective Physical Exam Physical Exam: Gen: A&O 3 NAD, class III obesity HEENT: NCAT, EOMI, not icteric. External ears normal. No rhinorrhea. Moist mucous membranes. Neck: Supple, full range of motion, no observable masses, No meningeal sign. Lungs: No Respiratory distress. CV: RRR, no edema. Abdomen: Soft, nondistended, No rebound tenderness. MSK: Significant swelling present on left knee with painful ROM. Skin: No rashes, petechiae, lesions. Normal color per patient. Neuro: Normal Gait, Grossly intact. Psych: Appropriate for situation. Results & Data Results & Data Vital Signs (Past 12 Hours) Vital Signs Temp Pulse Pulse Resp BP Pulse Ox O2 Del Method 05/03/25 15:17 37.2 C 69 18 119/71 97 Room Air 05/03/25 11:26 37.1 C 85 20 122/70 97 Room Air 05/03/25 08:15 Room Air 05/03/25 07:33 67 18 96 Nasal Cannula 05/03/25 07:16 36.7 C 63 18 117/67 95 Nasal Cannula O2 Flow Rate 05/03/25 15:17 05/03/25 11:26 05/03/25 08:15 05/03/25 07:33 1 05/03/25 07:16 1 (6) Atrial fibrillation Atrial fibrillation type: chronic Qualified Code(s): I48.2 - Chronic atrial fibrillation
[2025-05-04 08:52] LABS: Hematocrit (blood only) 30.6 % (37.0-47.0); Hemoglobin 9.8 g/dl (12.0-16.0); Immature Granulocytes # (auto) 0.06 K/uL (0.01-0.20); Immature Granulocytes % (auto) 0.5 %; Mean Corpuscular Hemoglobin 30.8 pg (25.0-34.0); Mean Corpuscular Volume 96.2 fL (80.0-100.0); Platelet Count 253 K/uL (130-400); RDW Standard Deviation 55.2 fL (36.4-46.3); Red Blood Count 3.18 M/uL (4.20-5.40); White Blood Count 11.06 K/ul (4.8-10.8)
--- NOTE | 2025-05-04 14:18 | Hospitalist Progress Note ---
Date of Service May 04, 2025 Assessment & Plan (1) Ambulatory dysfunction: (2) Acute pain of left knee: (3) Accidental fall: (4) Uncontrolled type 2 diabetes mellitus with hyperglycemia, with long-term current use of insulin: (5) NAVI (obstructive sleep apnea): (6) Atrial fibrillation: Plan 70 yo female with pmhx of A-fib on Pradaxa, hypertension, COPD, NAVI on BiPAP, DM2 insulin requiring, hypothyroidism, ovarian cancer status post surgery, GERD, anxiety/mood disorder, morbid obesity, past tobacco abuse who presents for fall which was mechanical in nature c/b left knee injury and ambulatory dysfunction. #Mechanical Fall Left knee and thigh hematoma Acute blood loss anemia -patient has significant left knee tenderness and swelling, was unable to bear weight well when ambulation attempted -xray of left leg and knee unremarkable -knee MRI shows large muscular and subcutaneous hematoma with associated muscle edema, ACL grade 2 sprain, MCL grade 1 sprain. Hemoglobin down trended from 12.7 to 9.8 g/dL Plan: Continue to hold Pradaxa. Orthopedic and vascular surgery was consulted for comanagement; no intervention for the time being. Continue to observe patient on subcu heparin and monitor hemoglobin. Timing of the Pradaxa to be dependent on patient's hemoglobin level. Continue pain control PT OT eval; might need rehab #Leukocytosis -likely reactive -monitor #Chronic Atrial Fibrillation -continue diltiazem -continue lasix -continue metoprolol -replenish potassium #Class III Obesity -hold home mounjaro #Hypothyroidism -continue levothyroxine #DM Type 2 -continue home lantus, mealtime insulin -SSI -pharmacy consult given high doses of insulin #COPD -continue home inhalers #Gout -continue allopurinol #NAVI -on Bipap at home -on at home, ordered for here DVT prophylaxis- heparin full code Time spent evaluating patient, direct bedside care, chart review, placing orders, interpretation of diagnostic studies, discussion with consultants, patient, and family members, as well as other required patient management activities is 50 minutes Please note the above document was generated using voice recognition software. It may contain grammatical, syntax or spelling errors. Any formal questions or concerns about the content, text or information contained within the body of this dictation should be directly addressed to the provider for clarification Admission and Anticipated Discharge Date Admission Date: May 01, 2025 Subjective Patient seen and examined at bedside. Her pain is well-controlled on current medication. She is able to go back and forth to the toilet with a rolling walker. Review of Systems Review of Systems: All systems reviewed & are unremarkable except as noted in Subjective Physical Exam Physical Exam: Gen: A&O 3 NAD, class III obesity HEENT: NCAT, EOMI, not icteric. External ears normal. No rhinorrhea. Moist mucous membranes. Neck: Supple, full range of motion, no observable masses, No meningeal sign. Lungs: No Respiratory distress. CV: RRR, no edema. Abdomen: Soft, nondistended, No rebound tenderness. MSK: Significant swelling present on left knee with painful ROM. Skin: No rashes, petechiae, lesions. Normal color per patient. Neuro: Normal Gait, Grossly intact. Psych: Appropriate for situation. Results & Data Results & Data Vital Signs (Past 12 Hours) Vital Signs Temp Pulse Resp BP Pulse Ox O2 Del Method 05/04/25 12:22 Room Air 05/04/25 08:14 36.4 C L 57 L 22 112/66 96 Nasal Cannula (6) Atrial fibrillation Atrial fibrillation type: chronic Qualified Code(s): I48.2 - Chronic atrial fibrillation
[2025-05-05 06:37] LABS: Hematocrit (blood only) 30.1 % (37.0-47.0); Hemoglobin 9.8 g/dl (12.0-16.0); Immature Granulocytes # (auto) 0.05 K/uL (0.01-0.20); Immature Granulocytes % (auto) 0.4 %; Mean Corpuscular Hemoglobin 31.1 pg (25.0-34.0); Mean Corpuscular Volume 95.6 fL (80.0-100.0); Platelet Count 280 K/uL (130-400); RDW Standard Deviation 53.5 fL (36.4-46.3); Red Blood Count 3.15 M/uL (4.20-5.40); White Blood Count 11.62 K/ul (4.8-10.8)
--- NOTE | 2025-05-05 08:22 | Hospitalist Progress Note ---
Date of Service May 05, 2025 Assessment & Plan (1) Ambulatory dysfunction: (2) Acute pain of left knee: (3) Accidental fall: (4) Uncontrolled type 2 diabetes mellitus with hyperglycemia, with long-term current use of insulin: (5) NAVI (obstructive sleep apnea): (6) Atrial fibrillation: Plan 70 yo female with pmhx of A-fib on Pradaxa, hypertension, COPD, NAVI on BiPAP, DM2 insulin requiring, hypothyroidism, ovarian cancer status post surgery, GERD, anxiety/mood disorder, morbid obesity, past tobacco abuse who presents for fall which was mechanical in nature c/b left knee injury and ambulatory dysfunction. #Mechanical Fall Left knee and thigh hematoma Acute blood loss anemia -patient has significant left knee tenderness and swelling, was unable to bear weight well when ambulation attempted -xray of left leg and knee unremarkable -knee MRI shows large muscular and subcutaneous hematoma with associated muscle edema, ACL grade 2 sprain, MCL grade 1 sprain. Hemoglobin down trended from 12.7 to 9.8 g/dL Plan: Continue to hold Pradaxa. Orthopedic and vascular surgery was consulted for comanagement; no intervention for the time being. Patient's hemoglobin stable on subcu heparin; plan to resume Pradaxa. Continue to monitor hemoglobin Continue pain control PT OT eval; rehab if patient is agreeable #Leukocytosis -likely reactive -Prior blood work also reveals leukocytosis; will benefit from evaluation by hematology as outpatient. discussed with patient. #Chronic Atrial Fibrillation -continue diltiazem -continue lasix -continue metoprolol -replenish potassium #Class III Obesity -hold home mounjaro #Hypothyroidism -continue levothyroxine #DM Type 2 -continue home lantus, mealtime insulin -SSI -pharmacy consult given high doses of insulin #COPD -continue home inhalers #Gout -continue allopurinol #NAVI -on Bipap at home -on at home, ordered for here DVT prophylaxis- pradaxa full code Please note the above document was generated using voice recognition software. It may contain grammatical, syntax or spelling errors. Any formal questions or concerns about the content, text or information contained within the body of this dictation should be directly addressed to the provider for clarification Admission and Anticipated Discharge Date Admission Date: May 01, 2025 Subjective Patient seen and examined at bedside. She is comfortable; not in distress. Reports that the pain is well-controlled on current medication. Hemoglobin continues to be stable Review of Systems Review of Systems: All systems reviewed & are unremarkable except as noted in Subjective Physical Exam Physical Exam: Gen: A&O 3 NAD, class III obesity. Lungs: No Respiratory distress. CV: RRR, no edema. Abdomen: Soft, nondistended, No rebound tenderness. MSK: Significant swelling present on left knee with painful ROM. Skin: No rashes, petechiae, lesions. Normal color per patient. Neuro: Normal Gait, Grossly intact. Psych: Appropriate for situation. Results & Data Results & Data Vital Signs (Past 12 Hours) Vital Signs Temp Pulse Pulse Resp BP Pulse Ox O2 Del Method 05/05/25 07:22 36.5 C 58 L 18 121/63 96 Nasal Cannula 05/04/25 23:47 36.6 C 61 18 114/74 93 Room Air O2 Flow Rate 05/05/25 07:22 4 05/04/25 23:47 (6) Atrial fibrillation Atrial fibrillation type: chronic Qualified Code(s): I48.2 - Chronic atrial fibrillation
[2025-05-05 10:58] LABS: Appearance Urine Cloudy (Clear); Bacteria Urine Automated 4+ (None Seen); Cast Urine Automated 0-2 /lpf (0-2); Epithelial Cell Urine Auto 0-2 /hpf (0-2); Glucose Urine UA Negative (Negative); RBC Urine Automated 0-2 /hpf (0-2); WBC Urine Automated >50 /hpf (0-5)
[2025-05-05] MEDS: DABIGATRAN ETEXILATE 75 MG CAP PO SCH (20:10)
[2025-05-05] MEDS: DOCUSATE SODIUM 100 MG CAP PO SCH (20:16)
[2025-05-06] MEDS: cefTRIAXone SODIUM 2,000 MG/50 ML BAG IV SCH (09:03)
--- NOTE | 2025-05-06 09:07 | Hospitalist Progress Note ---
Date of Service May 06, 2025 Assessment & Plan (1) Ambulatory dysfunction: (2) Acute pain of left knee: (3) Accidental fall: (4) Uncontrolled type 2 diabetes mellitus with hyperglycemia, with long-term current use of insulin: (5) NAVI (obstructive sleep apnea): (6) Atrial fibrillation: Plan 70 yo female with pmhx of A-fib on Pradaxa, hypertension, COPD, NAVI on BiPAP, DM2 insulin requiring, hypothyroidism, ovarian cancer status post surgery, GERD, anxiety/mood disorder, morbid obesity, past tobacco abuse who presents for fall which was mechanical in nature c/b left knee injury and ambulatory dysfunction. #Mechanical Fall Left knee and thigh hematoma Acute blood loss anemia -patient has significant left knee tenderness and swelling, was unable to bear weight well when ambulation attempted -xray of left leg and knee unremarkable -knee MRI shows large muscular and subcutaneous hematoma with associated muscle edema, ACL grade 2 sprain, MCL grade 1 sprain. Hemoglobin down trended from 12.7 to 9.8 g/dL Plan: Pradaxa resumed; Hb stable around 10 Continue pain control Script for bedside commode and bariatric walker provided. Acute UTIurinalysis suggestive of infection; patient started on ceftriaxone; plan to treat for 5 days. Will follow-up on final culture and sensitivity. #Chronic Atrial Fibrillation -continue diltiazem -continue lasix -continue metoprolol -replenish potassium #Class III Obesity -hold home mounjaro #Hypothyroidism -continue levothyroxine #DM Type 2 -continue home lantus, mealtime insulin -SSI -pharmacy consult given high doses of insulin #COPD -continue home inhalers #Gout -continue allopurinol #NAVI -on Bipap at home -on at home, ordered for here DVT prophylaxis- pradaxa full code Please note the above document was generated using voice recognition software. It may contain grammatical, syntax or spelling errors. Any formal questions or concerns about the content, text or information contained within the body of this dictation should be directly addressed to the provider for clarification Admission and Anticipated Discharge Date Admission Date: May 01, 2025 Subjective Patient seen and examined at bedside. She is comfortable; not in distress. Pain is well-controlled on current medication No significant events overnight Review of Systems Review of Systems: All systems reviewed & are unremarkable except as noted in Subjective Physical Exam Physical Exam: Gen: A&O 3 NAD, class III obesity. Lungs: No Respiratory distress. CV: RRR, no edema. Abdomen: Soft, nondistended, No rebound tenderness. MSK: Significant swelling present on left knee with painful ROM. Skin: No rashes, petechiae, lesions. Normal color per patient. Neuro: Normal Gait, Grossly intact. Psych: Appropriate for situation. Results & Data Results & Data Vital Signs (Past 12 Hours) Vital Signs Temp Pulse Pulse Resp BP Pulse Ox O2 Del Method 05/06/25 08:44 72 130/67 05/06/25 07:38 36.7 C 62 18 103/62 94 Room Air 05/05/25 22:04 Room Air (6) Atrial fibrillation Atrial fibrillation type: chronic Qualified Code(s): I48.2 - Chronic atrial fibrillation
[2025-05-06 09:50] LABS: Hematocrit (blood only) 31.5 % (37.0-47.0); Hemoglobin 10.0 g/dl (12.0-16.0); Immature Granulocytes # (auto) 0.06 K/uL (0.01-0.20); Immature Granulocytes % (auto) 0.6 %; Mean Corpuscular Hemoglobin 30.6 pg (25.0-34.0); Mean Corpuscular Volume 96.3 fL (80.0-100.0); Platelet Count 291 K/uL (130-400); RDW Standard Deviation 54.9 fL (36.4-46.3); Red Blood Count 3.27 M/uL (4.20-5.40); White Blood Count 9.70 K/ul (4.8-10.8)
[2025-05-06] MEDS: NITROFURANTOIN MONOHYDRATE 100 MG CAP PO SCH (15:41)
[2025-05-07] MEDS: POLYETHYLENE (MIRALAX) 17 GM PACK PO PRN (05:58)
[2025-05-07 06:47] LABS: Hematocrit (blood only) 31.3 % (37.0-47.0); Hemoglobin 10.0 g/dl (12.0-16.0); Immature Granulocytes # (auto) 0.05 K/uL (0.01-0.20); Immature Granulocytes % (auto) 0.4 %; Mean Corpuscular Hemoglobin 31.1 pg (25.0-34.0); Mean Corpuscular Volume 97.2 fL (80.0-100.0); Platelet Count 296 K/uL (130-400); RDW Standard Deviation 54.8 fL (36.4-46.3); Red Blood Count 3.22 M/uL (4.20-5.40); White Blood Count 11.63 K/ul (4.8-10.8)
--- NOTE | 2025-05-07 10:40 | Discharge Summary ---
Date of Service May 07, 2025 Admission HPI Per Admitting Provider 70 yo female with pmhx of A-fib on Pradaxa, hypertension, COPD, NAVI on BiPAP, DM2 insulin requiring, hypothyroidism, ovarian cancer status post surgery, GERD, anxiety/mood disorder, morbid obesity, past tobacco abuse who presents for fall. Had recent admission this month for E. coli bacteremia 2/2 E. coli UTI. In the ED, xrays of the left knee unremarkable, tried to walk but was unable to, admitted to medicine for ambulatory dysfunction. Patient seen and examined at bedside. Sister present as well. Patient was doing well at home, grandchildren came over to play with her and spilled water, and patient slipped and fell. Came to ED with left knee pain, when attempting to walk was unable to walk. No other symptoms other than left knee swelling and pain. Admission Exam Per Admitting Provider Gen: A&O 3 NAD, class III obesity HEENT: NCAT, EOMI, not icteric. External ears normal. No rhinorrhea. Moist mucous membranes. Neck: Supple, full range of motion, no observable masses, No meningeal sign. Lungs: No Respiratory distress. CV: RRR, no edema. Abdomen: Soft, nondistended, No rebound tenderness. MSK: severe tenderness to palpation of left knee on medial/lateral joint lines, tenderness above left knee as well, edema noted Skin: No rashes, petechiae, lesions. Normal color per patient. Neuro: Normal Gait, Grossly intact. Psych: Appropriate for situation. Principal Diagnosis #Mechanical Fall Left knee and thigh hematoma Acute blood loss anemia Discharge Exam Gen: A&O 3 NAD, class III obesity. Lungs: No Respiratory distress. CV: RRR, no edema. Abdomen: Soft, nondistended, No rebound tenderness. MSK: Significant swelling present on left knee with painful ROM. Skin: No rashes, petechiae, lesions. Normal color per patient. Neuro: Normal Gait, Grossly intact. Psych: Appropriate for situation. Discharge Data Allergies Allergy/AdvReac Type Severity Reaction Status Date / Time nickel Allergy Mild Redness of Verified 05/01/25 18:07 Skin GIN Inhibitors Allergy Unknown Unknown Verified 05/01/25 18:07 cat dander Allergy Unknown Unknown Verified 05/01/25 18:07 cockroach Allergy Unknown Unknown Verified 05/01/25 18:07 house dust Allergy Unknown Unknown Verified 05/01/25 18:07 pioglitazone Allergy Unknown Unknown Verified 05/01/25 18:07 tree and shrub pollen Allergy Unknown Unknown Verified 05/01/25 18:07 empagliflozin AdvReac Intermediate CAUSED Verified 05/01/25 18:16 [From Jardiance] UTI'S codeine AdvReac Mild Nausea Verified 05/01/25 18:07 hydrocodone AdvReac Mild Nausea Verified 05/01/25 18:07 meperidine AdvReac Mild Nausea Verified 05/01/25 18:07 morphine AdvReac Mild Nausea Verified 05/01/25 18:07 Consultations 05/01/25 18:27 ED Decision to Admit Stat 05/02/25 07:50 Consult Orthopedic Surgery Routine 05/02/25 11:29 Consult Vascular Surgery Routine Ordered Studies 05/02/25 00:10 MR knee LT wo/w con Urgent Hospital Course (1) Ambulatory dysfunction: (2) Acute pain of left knee: (3) Accidental fall: (4) Uncontrolled type 2 diabetes mellitus with hyperglycemia, with long-term current use of insulin: (5) NAVI (obstructive sleep apnea): (6) Atrial fibrillation: Plan 70 yo female with pmhx of A-fib on Pradaxa, hypertension, COPD, NAVI on BiPAP, DM2 insulin requiring, hypothyroidism, ovarian cancer status post surgery, GERD, anxiety/mood disorder, morbid obesity, past tobacco abuse who presents for fall which was mechanical in nature c/b left knee injury and ambulatory dysfunction. #Mechanical Fall Left knee and thigh hematoma Acute blood loss anemia -patient has significant left knee tenderness and swelling, was unable to bear weight well when ambulation attempted -xray of left leg and knee unremarkable -knee MRI shows large muscular and subcutaneous hematoma with associated muscle edema, ACL grade 2 sprain, MCL grade 1 sprain. Hemoglobin down trended from 12.7 to 9.8 g/dL During the hospitalization, patient was evaluated by orthopedic and vascular surgery; patient used brace while ambulating. Pain was controlled with pain medication. Subcu heparin was initiated initially with close monitoring of her hemoglobin level; Pradaxa was eventually resumed after her hemoglobin remained stable. Patient's did not show any signs or symptoms of further bleeding while on Pradaxa. Patient was discharged with instructions to follow-up with PCP. She was given prescription for bedside commode and bariatric walker. Acute UTIurinalysis suggestive of infection; patient started on ceftriaxone; Urine culture was positive for Citrobacter freundii; patient was discharged on Macrobid after discussion with the pharmacist. Please note the above document was generated using voice recognition software. It may contain grammatical, syntax or spelling errors. Any formal questions or concerns about the content, text or information contained within the body of this dictation should be directly addressed to the provider for clarification Total Time Total Time Spent Total Time Spent (In Minutes): 45 Total Time Includes: Examination of the Patient, Discharge Planning, Medication Reconciliation, Communication With Other Providers and Other Discharge Plan Discharge Items Patient Disposition: Home - Self-Care Reason For Visit: INABILITY TO WALK Discharge Diagnosis: #Mechanical Fall Left knee and thigh hematoma Acute blood loss anemia Condition on Discharge: Good Activity: Resume your previous activity Non-emergency contact: Primary Care Provider Call non-emergency contact if: you have any medication questions and your symptoms worsen Follow-up/Referrals: Mohsen Vazquez MD [Primary Care Provider] - Diet: Regular Addtl Attending Provider Instructions: You were admitted to the hospital due to a fall. You are found to have hematoma in your knee and your thigh. Your blood level remained stable throughout the hospitalization. You are prescribed oxycodone to be used for severe pain as needed. You are also found to have UTI for which you are prescribed Macrobid to be taken for 4 more days. Pending Studies at Discharge: No Stand-Alone Forms: My [facility] [place] [employer], Smoking Cessation Medications and DC Order Prescriptions: New oxycodone 5 mg Tablet 5 mg PO Q6H PRN (Reason: pain) Qty: 10 0RF nitrofurantoin monohyd/m-cryst 100 mg Capsule 100 mg PO Q12H 4 Days Qty: 8 0RF Continued (DME) pen needle, diabetic [Clickfine Pen Needle] 31 gauge x 5/16" needle See Rx Instructions .Route Qty: 500 3RF Rx Instructions: Use 5 per day gabapentin 600 mg tablet 600 mg PO TID Qty: 270 1RF diltiazem HCl 360 mg capsule,extended release 24 hr 360 mg PO DAILY insulin lispro [Humalog KwikPen Insulin] 100 unit/mL insulin pen 15 unit subcut TIDM (DME) Dexcom G6 Sensor Device See Rx Instructions .ROUTE Rx Instructions: As directed atorvastatin 40 mg Tablet 40 mg PO HS allopurinol 100 mg Tablet 100 mg PO BID gemfibrozil 600 mg Tablet 600 mg PO BID mometasone 50 mcg/actuation [place],Non-Aerosol 1 - 2 spray INTRANASAL QAM levothyroxine 112 mcg Tablet 112 mcg PO DAILYBB diclofenac sodium 1 % gel 2 g topical QID PRN (Reason: Pain) dabigatran etexilate [Pradaxa] 150 mg Capsule 150 mg PO BID Qty: 14 0RF famotidine [Pepcid] 20 mg tablet 20 mg PO BID coenzyme Q10 200 mg Capsule 200 mg PO DAILY metoprolol tartrate 25 mg Tablet 37.5 mg PO BID Qty: 90 0RF Combivent Respimat 20-100 mcg/actuation mist 1 puff INHALATION QID albuterol sulfate [Proventil] 2.5 mg /3 mL (0.083 %) Solution For Nebulization 2.5 mg INHALATION Q4H PRN (Reason: Wheezing) furosemide [Lasix] 20 mg Tablet 20 mg PO QAM albuterol sulfate [ProAir HFA] 90 mcg/actuation Hfa Aerosol Inhaler 2 puff INHALATION Q4H PRN (Reason: Wheezing) cholecalciferol (vitamin D3) [Vitamin D3] 25 mcg (1,000 unit) Capsule 25 mcg PO DAILY Mounjaro 7.5 mg/0.5 mL pen injector 7.5 mg SUBCUT WK Rx Instructions: MONDAYS PER PT "SKIPPED THIS PAST TUESDAY, D/T PROCEDURE TO BE DONE". magnesium glycinate 120 mg Capsule 240 mg PO QAM insulin glargine [Lantus Solostar U-100 Insulin] 100 unit/mL (3 mL) insulin pen 40 unit SUBCUT BID Admission Data Admit Date/Time: 05/01/25 18:20 Attending Provider: Florin Barfield Admit Provider: Leighton Curtis Primary Care Provider: Mohsen Vazquez Other Providers: Leighton Curtis; Gustavo Prado; Pedro Farnsworth; [facility]
--- NOTE | 2025-05-07 12:32 | Hospitalist Progress Note ---
Date of Service May 07, 2025 Assessment & Plan (1) Ambulatory dysfunction: (2) Acute pain of left knee: (3) Accidental fall: (4) Uncontrolled type 2 diabetes mellitus with hyperglycemia, with long-term current use of insulin: (5) NAVI (obstructive sleep apnea): (6) Atrial fibrillation: Plan 70 yo female with pmhx of A-fib on Pradaxa, hypertension, COPD, NAVI on BiPAP, DM2 insulin requiring, hypothyroidism, ovarian cancer status post surgery, GERD, anxiety/mood disorder, morbid obesity, past tobacco abuse who presents for fall which was mechanical in nature c/b left knee injury and ambulatory dysfunction. #Mechanical Fall Left knee and thigh hematoma Acute blood loss anemia -Patient had a fall and developed significant left knee tenderness and swelling, was unable to bear weight well when ambulation attempted -xray of left leg and knee unremarkable -knee MRI shows large muscular and subcutaneous hematoma with associated muscle edema, ACL grade 2 sprain, MCL grade 1 sprain. Hemoglobin down trended from 12.7 to around 10 g/dL Plan: Pradaxa resumed; Hb stable around 10 Continue pain control, ice Script for bedside commode and bariatric walker provided. Patient reported she wants to go home rather than home with home health; [facility]. Acute UTIurinalysis suggestive of infection; Urine cx positive for citrobacter freundii complex-discussed with pharmacy; plan to treat with macrobid for 5 days. #Chronic Atrial Fibrillation -continue diltiazem -continue lasix -continue metoprolol -replenish potassium #Class III Obesity -hold home mounjaro #Hypothyroidism -continue levothyroxine #DM Type 2 -continue home lantus, mealtime insulin -SSI -pharmacy consult given high doses of insulin #COPD -continue home inhalers #Gout -continue allopurinol #NAVI -on Bipap at home -on at home, ordered for here DVT prophylaxis- pradaxa full code Please note the above document was generated using voice recognition software. It may contain grammatical, syntax or spelling errors. Any formal questions or concerns about the content, text or information contained within the body of this dictation should be directly addressed to the provider for clarification Admission and Anticipated Discharge Date Admission Date: May 01, 2025 Subjective Patient seen and examined at bedside. She reports that her pain is well- controlled; not in distress No significant events overnight Review of Systems Review of Systems: All systems reviewed & are unremarkable except as noted in Subjective Physical Exam Physical Exam: Gen: A&O 3 NAD, class III obesity. Lungs: No Respiratory distress. CV: RRR, no edema. Abdomen: Soft, nondistended, No rebound tenderness. MSK:swelling present on left knee with painful ROM. Skin: No rashes, petechiae, lesions. Normal color per patient. Neuro: Normal Gait, Grossly intact. Psych: Appropriate for situation. Results & Data Results & Data Vital Signs (Past 12 Hours) Vital Signs Temp Pulse Resp BP Pulse Ox O2 Del Method 05/07/25 07:24 36.7 C 54 L 16 107/58 L 93 Room Air (6) Atrial fibrillation Atrial fibrillation type: chronic Qualified Code(s): I48.2 - Chronic atrial fibrillation
[2025-05-07] MEDS: MAGNESIUM CITRATE 296 ML/BTL PO STA (12:39)
[2025-05-08 06:31] LABS: Hematocrit (blood only) 31.3 % (37.0-47.0); Hemoglobin 10.0 g/dl (12.0-16.0); Immature Granulocytes # (auto) 0.07 K/uL (0.01-0.20); Immature Granulocytes % (auto) 0.6 %; Mean Corpuscular Hemoglobin 30.5 pg (25.0-34.0); Mean Corpuscular Volume 95.4 fL (80.0-100.0); Platelet Count 300 K/uL (130-400); RDW Standard Deviation 53.9 fL (36.4-46.3); Red Blood Count 3.28 M/uL (4.20-5.40); White Blood Count 12.27 K/ul (4.8-10.8)
[2025-05-08 06:51] LABS: Creatinine Clr Calc Pharmacy 120.6 ml/min
--- NOTE | 2025-05-08 16:20 | Hospitalist Progress Note ---
Date of Service May 08, 2025 Assessment & Plan (1) Ambulatory dysfunction: (2) Acute pain of left knee: (3) Accidental fall: (4) Uncontrolled type 2 diabetes mellitus with hyperglycemia, with long-term current use of insulin: (5) NAVI (obstructive sleep apnea): (6) Atrial fibrillation: Plan 70 yo female with pmhx of A-fib on Pradaxa, hypertension, COPD, NAVI on BiPAP, DM2 insulin requiring, hypothyroidism, ovarian cancer status post surgery, GERD, anxiety/mood disorder, morbid obesity, past tobacco abuse who presents for fall which was mechanical in nature c/b left knee injury and ambulatory dysfunction. #Mechanical Fall Left knee and thigh hematoma Acute blood loss anemia -Patient had a fall and developed significant left knee tenderness and swelling, was unable to bear weight well when ambulation attempted -xray of left leg and knee unremarkable -knee MRI shows large muscular and subcutaneous hematoma with associated muscle edema, ACL grade 2 sprain, MCL grade 1 sprain. Hemoglobin down trended from 12.7 to around 10 g/dL Plan: Pradaxa resumed; Hb stable around 10 Continue pain control, ice Script for bedside commode and bariatric walker provided. CM assisting w/ dc planning. Acute UTIurinalysis suggestive of infection; Urine cx positive for citrobacter freundii complex; plan to treat with macrobid for 5 days. c/w macrobid. #Chronic Atrial Fibrillation -continue diltiazem -continue lasix -continue metoprolol -replenish potassium #Class III Obesity -hold home mounjaro #Hypothyroidism -continue levothyroxine #DM Type 2 -continue home lantus, mealtime insulin -SSI -pharmacy consult given high doses of insulin #COPD -continue home inhalers #Gout -continue allopurinol #NAVI -on Bipap at home -on at home, ordered for here DVT prophylaxis- pradaxa full code Please note the above document was generated using voice recognition software. It may contain grammatical, syntax or spelling errors. Any formal questions or concerns about the content, text or information contained within the body of this dictation should be directly addressed to the provider for clarification Admission and Anticipated Discharge Date Admission Date: May 01, 2025 Subjective Patient seen and examined at bedside. She reports that her pain is well-controlled; not in distress No significant events overnight Physical Exam Physical Exam: Gen: A&O 3 NAD, class III obesity. Lungs: No Respiratory distress. CV: RRR, no edema. Abdomen: Soft, nondistended, No rebound tenderness. MSK:swelling present on left knee with painful ROM. Skin: No rashes, petechiae, lesions. Normal color per patient. Neuro: Normal Gait, Grossly intact. Psych: Appropriate for situation. Results & Data Results & Data Vital Signs (Past 12 Hours) Vital Signs Temp Pulse Resp BP Pulse Ox O2 Del Method 05/08/25 14:41 36.6 C 63 16 112/63 94 Room Air 05/08/25 11:56 36.9 C 78 17 120/88 97 Room Air 05/08/25 07:55 Room Air 05/08/25 07:34 36.9 C 76 20 115/66 95 Room Air (6) Atrial fibrillation Atrial fibrillation type: chronic Qualified Code(s): I48.2 - Chronic atrial fibrillation
[2025-05-09 07:28] LABS: Hematocrit (blood only) 31.0 % (37.0-47.0); Hemoglobin 9.8 g/dl (12.0-16.0); Mean Corpuscular Hemoglobin 30.7 pg (25.0-34.0); Mean Corpuscular Volume 97.2 fL (80.0-100.0); Platelet Count 311 K/uL (130-400); RDW Standard Deviation 56.2 fL (36.4-46.3); Red Blood Count 3.19 M/uL (4.20-5.40); White Blood Count 11.86 K/ul (4.8-10.8)
[2025-05-09] MEDS: cefTRIAXone SODIUM 2,000 MG/50 ML BAG IV SCH (13:12)
--- NOTE | 2025-05-09 14:55 | Hospitalist Progress Note ---
Date of Service May 09, 2025 Assessment & Plan (1) Ambulatory dysfunction: (2) Acute pain of left knee: (3) Accidental fall: (4) Uncontrolled type 2 diabetes mellitus with hyperglycemia, with long-term current use of insulin: (5) NAVI (obstructive sleep apnea): (6) Atrial fibrillation: Plan 70 yo female with pmhx of A-fib on Pradaxa, hypertension, COPD, NAVI on BiPAP, DM2 insulin requiring, hypothyroidism, ovarian cancer status post surgery, GERD, anxiety/mood disorder, morbid obesity, past tobacco abuse who presents for fall which was mechanical in nature c/b left knee injury and ambulatory dysfunction. #Mechanical Fall Left knee and thigh hematoma Acute blood loss anemia -Patient had a fall and developed significant left knee tenderness and swelling, was unable to bear weight well when ambulation attempted -xray of left leg and knee unremarkable -knee MRI shows large muscular and subcutaneous hematoma with associated muscle edema, ACL grade 2 sprain, MCL grade 1 sprain. Hemoglobin down trended from 12.7 to around 10 g/dL Plan: Pradaxa resumed; Hb stable around 10 Continue pain control, ice Script for bedside commode and bariatric walker provided. CM assisting w/ dc planning. Acute UTIurinalysis suggestive of infection; Urine cx positive for citrobacter freundii complex; plan to treat with macrobid for 5 days. macrobid changed to rocephin (see below) Likely LLE cellulitis: start rocephin 05/09, plan for 5-7 d Rx. #Chronic Atrial Fibrillation -continue diltiazem -continue lasix -continue metoprolol -replenish potassium #Class III Obesity -hold home mounjaro #Hypothyroidism -continue levothyroxine #DM Type 2 -continue home lantus, mealtime insulin -SSI -pharmacy consult given high doses of insulin #COPD -continue home inhalers #Gout -continue allopurinol #NAVI -on Bipap at home -on at home, ordered for here DVT prophylaxis- pradaxa full code likely CC will be able to take her mark. Please note the above document was generated using voice recognition software. It may contain grammatical, syntax or spelling errors. Any formal questions or concerns about the content, text or information contained within the body of this dictation should be directly addressed to the provider for clarification Admission and Anticipated Discharge Date Admission Date: May 01, 2025 Subjective Patient seen and examined at bedside. She reports that her pain is well-controlled; not in distress No significant events overnight Physical Exam Physical Exam: Gen: A&O 3 NAD, class III obesity. Lungs: No Respiratory distress. CV: RRR, no edema. Abdomen: Soft, nondistended, No rebound tenderness. MSK:swelling present on left knee with painful ROM. LLE kamara warm and erythematous +. Skin: No rashes, petechiae, lesions. Normal color per patient. Neuro: Normal Gait, Grossly intact. Psych: Appropriate for situation. Results & Data Results & Data Vital Signs (Past 12 Hours) Vital Signs Temp Pulse Resp BP Pulse Ox O2 Del Method 05/09/25 13:49 37.2 C 78 20 128/79 94 Room Air 05/09/25 08:14 36.6 C 78 18 146/84 H 94 Room Air (6) Atrial fibrillation Atrial fibrillation type: chronic Qualified Code(s): I48.2 - Chronic atrial fibrillation
[2025-05-10] MEDS: ADVANCED PROBIOTIC 625 MG CAPSULE PO SCH (08:48)
[2025-05-10 08:49] LABS: Hematocrit (blood only) 33.0 % (37.0-47.0); Hemoglobin 10.3 g/dl (12.0-16.0); Mean Corpuscular Hemoglobin 30.1 pg (25.0-34.0); Mean Corpuscular Volume 96.5 fL (80.0-100.0); Platelet Count 334 K/uL (130-400); RDW Standard Deviation 55.9 fL (36.4-46.3); Red Blood Count 3.42 M/uL (4.20-5.40); White Blood Count 11.21 K/ul (4.8-10.8)
[2025-05-10 09:06] LABS: Anion Gap 7.0 (3-11); Blood Urea Nitrogen 17.0 mg/dl (6-23); Calcium 8.9 mg/dl (8.6-10.3); Carbon Dioxide 28.0 mmol/L (21-32); Chloride 106.0 mmol/L (98-107); Creatinine Clr Calc Pharmacy 114.9 ml/min; Glucose 107.0 mg/dl (70-99(Fasting)); Potassium 4.0 mmol/L (3.5-5.1); Sodium 141.0 mmol/L (136-145)
--- NOTE | 2025-05-10 15:35 | Hospitalist Progress Note ---
Date of Service May 10, 2025 Assessment & Plan (1) Ambulatory dysfunction: (2) Acute pain of left knee: (3) Accidental fall: (4) Uncontrolled type 2 diabetes mellitus with hyperglycemia, with long-term current use of insulin: (5) NAVI (obstructive sleep apnea): (6) Atrial fibrillation: Plan 70 yo female with pmhx of A-fib on Pradaxa, hypertension, COPD, NAVI on BiPAP, DM2 insulin requiring, hypothyroidism, ovarian cancer status post surgery, GERD, anxiety/mood disorder, morbid obesity, past tobacco abuse who presents for fall which was mechanical in nature c/b left knee injury and ambulatory dysfunction. #Mechanical Fall Left knee and thigh hematoma Acute blood loss anemia -Patient had a fall and developed significant left knee tenderness and swelling, was unable to bear weight well when ambulation attempted -xray of left leg and knee unremarkable -knee MRI shows large muscular and subcutaneous hematoma with associated muscle edema, ACL grade 2 sprain, MCL grade 1 sprain. Hemoglobin down trended from 12.7 to around 10 g/dL Plan: Pradaxa resumed; Hb stable around 10 Continue pain control, ice Script for bedside commode and bariatric walker provided. CM assisting w/ dc planning. monitor hematoma/bruise daily. Acute UTIurinalysis suggestive of infection; Urine cx positive for citrobacter freundii complex; plan to treat with macrobid for 5 days. macrobid changed to rocephin (see below) Likely LLE cellulitis: start rocephin 05/09, plan for 5-7 d Rx. #Chronic Atrial Fibrillation -continue diltiazem -continue lasix -continue metoprolol -replenish potassium #Class III Obesity -hold home mounjaro #Hypothyroidism -continue levothyroxine #DM Type 2 -continue home lantus, mealtime insulin -SSI -pharmacy consult given high doses of insulin #COPD -continue home inhalers #Gout -continue allopurinol #NAVI -on Bipap at home -on at home, ordered for here DVT prophylaxis- pradaxa full code P2P done, 16 min spent in this conversation, declined for snf. notified cm. Please note the above document was generated using voice recognition software. It may contain grammatical, syntax or spelling errors. Any formal questions or concerns about the content, text or information contained within the body of this dictation should be directly addressed to the provider for clarification Admission and Anticipated Discharge Date Admission Date: May 01, 2025 Subjective Patient seen and examined at bedside. She reports that her pain is well-controlled; not in distress No significant events overnight Physical Exam Physical Exam: Gen: A&O 3 NAD, class III obesity. Lungs: No Respiratory distress. CV: RRR, no edema. Abdomen: Soft, nondistended, No rebound tenderness. MSK:swelling present on left knee with painful ROM. LLE kamara warm and erythematous --improving Skin: No rashes, petechiae, lesions. Normal color per patient. Neuro: Normal Gait, Grossly intact. Psych: Appropriate for situation. Results & Data Results & Data Vital Signs (Past 12 Hours) Vital Signs Temp Pulse Resp BP Pulse Ox O2 Del Method 05/10/25 14:04 36.6 C 54 L 20 115/70 90 Room Air 05/10/25 07:27 36.5 C 65 18 132/77 98 Room Air (6) Atrial fibrillation Atrial fibrillation type: chronic Qualified Code(s): I48.2 - Chronic atrial fibrillation
[2025-05-10] MEDS ORDERED: Nursing to Pharmacy Communication SCH (19:45)
[2025-05-10] MEDS: DABIGATRAN ETEXILATE 75 MG CAP PO ONE (20:55)
[2025-05-11 06:28] LABS: Hematocrit (blood only) 31.5 % (37.0-47.0); Hemoglobin 10.0 g/dl (12.0-16.0); Mean Corpuscular Hemoglobin 30.5 pg (25.0-34.0); Mean Corpuscular Volume 96.0 fL (80.0-100.0); Platelet Count 317 K/uL (130-400); RDW Standard Deviation 54.7 fL (36.4-46.3); Red Blood Count 3.28 M/uL (4.20-5.40); White Blood Count 12.24 K/ul (4.8-10.8)
[2025-05-11 07:18] LABS: Creatinine Clr Calc Pharmacy 120.6 ml/min
--- NOTE | 2025-05-11 17:05 | Hospitalist Progress Note ---
Date of Service May 11, 2025 Assessment & Plan (1) Ambulatory dysfunction: (2) Acute pain of left knee: (3) Accidental fall: (4) Uncontrolled type 2 diabetes mellitus with hyperglycemia, with long-term current use of insulin: (5) NAVI (obstructive sleep apnea): (6) Atrial fibrillation: Plan 70 yo female with pmhx of A-fib on Pradaxa, hypertension, COPD, NAVI on BiPAP, DM2 insulin requiring, hypothyroidism, ovarian cancer status post surgery, GERD, anxiety/mood disorder, morbid obesity, past tobacco abuse who presents for fall which was mechanical in nature c/b left knee injury and ambulatory dysfunction. #Mechanical Fall Left knee and thigh hematoma Acute blood loss anemia -Patient had a fall and developed significant left knee tenderness and swelling, was unable to bear weight well when ambulation attempted -xray of left leg and knee unremarkable -knee MRI shows large muscular and subcutaneous hematoma with associated muscle edema, ACL grade 2 sprain, MCL grade 1 sprain. Hemoglobin down trended from 12.7 to around 10 g/dL Plan: Pradaxa resumed; Hb stable around 10 Continue pain control, ice Script for bedside commode and bariatric walker provided. CM assisting w/ dc planning. monitor hematoma/bruise daily. Acute UTIurinalysis suggestive of infection; Urine cx positive for citrobacter freundii complex; plan to treat with macrobid for 5 days. macrobid changed to rocephin (see below) Likely LLE cellulitis: start rocephin 05/09, plan for 5-7 d Rx. #Chronic Atrial Fibrillation -continue diltiazem -continue lasix -continue metoprolol -replenish potassium #Class III Obesity -hold home mounjaro #Hypothyroidism -continue levothyroxine #DM Type 2 -continue home lantus, mealtime insulin -SSI -pharmacy consult given high doses of insulin #COPD -continue home inhalers #Gout -continue allopurinol #NAVI -on Bipap at home -on at home, ordered for here DVT prophylaxis- pradaxa full code dc to home /w HH mark Please note the above document was generated using voice recognition software. It may contain grammatical, syntax or spelling errors. Any formal questions or concerns about the content, text or information contained within the body of this dictation should be directly addressed to the provider for clarification Admission and Anticipated Discharge Date Admission Date: May 01, 2025 Subjective Patient seen and examined at bedside. She reports that her pain is well-controlled; not in distress No significant events overnight Reports LLE redness/tenderness improved. Pt's sister at bedside who states her home is being made compatible for the patient and requesting discharge tomorrow. Physical Exam Physical Exam: Gen: A&O 3 NAD, class III obesity. Lungs: No Respiratory distress. CV: RRR, no edema. Abdomen: Soft, nondistended, No rebound tenderness. MSK:swelling present on left knee with painful ROM. LLE kamara warm and erythematous --improving Skin: No rashes, petechiae, lesions. Normal color per patient. Neuro: Normal Gait, Grossly intact. Psych: Appropriate for situation. Results & Data Results & Data Vital Signs (Past 12 Hours) Vital Signs Temp Pulse Resp BP Pulse Ox O2 Del Method O2 Flow Rate 05/11/25 15:30 36.8 C 98 H 19 124/74 93 Room Air 05/11/25 09:31 Nasal Cannula 2 05/11/25 07:36 36.7 C 59 L 19 128/64 95 Room Air (6) Atrial fibrillation Atrial fibrillation type: chronic Qualified Code(s): I48.2 - Chronic atrial fibrillation
[2025-05-12 06:32] LABS: Hematocrit (blood only) 31.7 % (37.0-47.0); Hemoglobin 9.9 g/dl (12.0-16.0)
[2025-05-12 07:20] VITALS: BP 120/77; PULSE 70; RESP 20; TEMP 98.8; O2SAT 98
--- NOTE | 2025-05-12 12:12 | Discharge Summary ---
Date of Service May 12, 2025 Admission HPI Per Admitting Provider Chief Complaint: -left knee pain s/p fall Primary Care Provider: Mohsen Vazquez MD 70 yo female with pmhx of A-fib on Pradaxa, hypertension, COPD, NAVI on BiPAP, DM2 insulin requiring, hypothyroidism, ovarian cancer status post surgery, GERD, anxiety/mood disorder, morbid obesity, past tobacco abuse who presents for fall. Had recent admission this month for E. coli bacteremia 2/2 E. coli UTI. In the ED, xrays of the left knee unremarkable, tried to walk but was unable to, admitted to medicine for ambulatory dysfunction. Patient seen and examined at bedside. Sister present as well. Patient was doing well at home, grandchildren came over to play with her and spilled water, and patient slipped and fell. Came to ED with left knee pain, when attempting to walk was unable to walk. No other symptoms other than left knee swelling and pain. Admission Exam Per Admitting Provider Gen: A&O 3 NAD, class III obesity HEENT: NCAT, EOMI, not icteric. External ears normal. No rhinorrhea. Moist mucous membranes. Neck: Supple, full range of motion, no observable masses, No meningeal sign. Lungs: No Respiratory distress. CV: RRR, no edema. Abdomen: Soft, nondistended, No rebound tenderness. MSK: severe tenderness to palpation of left knee on medial/lateral joint lines, tenderness above left knee as well, edema noted Skin: No rashes, petechiae, lesions. Normal color per patient. Neuro: Normal Gait, Grossly intact. Psych: Appropriate for situation. Principal Diagnosis Mechanical Fall Left knee and thigh hematoma Acute blood loss anemia Discharge Exam Gen: A&O 3 NAD, class III obesity. Lungs: No Respiratory distress. CV: RRR, no edema. Abdomen: Soft, nondistended, No rebound tenderness. MSK:swelling present on left knee with painful ROM. LLE kamara warm and erythematous --improving Skin: No rashes, petechiae, lesions. Normal color per patient. Neuro: Normal Gait, Grossly intact. Psych: Appropriate for situation. Discharge Data Allergies Allergy/AdvReac Type Severity Reaction Status Date / Time nickel Allergy Mild Redness of Verified 05/01/25 18:07 Skin GIN Inhibitors Allergy Unknown Unknown Verified 05/01/25 18:07 cat dander Allergy Unknown Unknown Verified 05/01/25 18:07 cockroach Allergy Unknown Unknown Verified 05/01/25 18:07 house dust Allergy Unknown Unknown Verified 05/01/25 18:07 pioglitazone Allergy Unknown Unknown Verified 05/01/25 18:07 tree and shrub pollen Allergy Unknown Unknown Verified 05/01/25 18:07 empagliflozin AdvReac Intermediate CAUSED Verified 05/01/25 18:16 [From Jardiance] UTI'S codeine AdvReac Mild Nausea Verified 05/01/25 18:07 hydrocodone AdvReac Mild Nausea Verified 05/01/25 18:07 meperidine AdvReac Mild Nausea Verified 05/01/25 18:07 morphine AdvReac Mild Nausea Verified 05/01/25 18:07 Consultations 05/01/25 18:27 ED Decision to Admit Stat 05/02/25 07:50 Consult Orthopedic Surgery Routine 05/02/25 11:29 Consult Vascular Surgery Routine Ordered Studies 05/02/25 00:10 MR knee LT wo/w con Urgent Hospital Course (1) Ambulatory dysfunction: (2) Acute pain of left knee: (3) Accidental fall: (4) Uncontrolled type 2 diabetes mellitus with hyperglycemia, with long-term current use of insulin: (5) NAVI (obstructive sleep apnea): (6) Atrial fibrillation: Plan 70 yo female with pmhx of A-fib on Pradaxa, hypertension, COPD, NAVI on BiPAP, DM2 insulin requiring, hypothyroidism, ovarian cancer status post surgery, GERD, anxiety/mood disorder, morbid obesity, past tobacco abuse who presents for fall which was mechanical in nature c/b left knee injury and ambulatory dysfunction. #Mechanical Fall Left knee and thigh hematoma Acute blood loss anemia -Patient had a fall and developed significant left knee tenderness and swelling, was unable to bear weight well when ambulation attempted -xray of left leg and knee unremarkable -knee MRI shows large muscular and subcutaneous hematoma with associated muscle edema, ACL grade 2 sprain, MCL grade 1 sprain. Hemoglobin down trended from 12.7 to around 10 g/dL Plan: Pradaxa resumed; Hb stable around 10 Continue pain control, ice Script for bedside commode and bariatric walker provided. monitor hematoma/bruise daily-- has been stable. Acute UTIurinalysis suggestive of infection; Urine cx positive for citrobacter freundii complex; plan to treat with macrobid for 5 days. macrobid changed to rocephin (see below) Likely LLE cellulitis: start rocephin 05/09, plan for 5-7 d Rx. to keflex on dc. LLE erythema/warmth/tenderness improved significantly. #Chronic Atrial Fibrillation -continue diltiazem -continue lasix -continue metoprolol -replenish potassium #Class III Obesity -hold home mounjaro #Hypothyroidism -continue levothyroxine #DM Type 2 -continue home lantus, mealtime insulin -SSI -pharmacy consult given high doses of insulin #COPD -continue home inhalers #Gout -continue allopurinol #NAVI -on Bipap at home -on at home, ordered for here DVT prophylaxis- pradaxa full code dc to home /w HH mark patient is being discharged to home with home health with following instructions at the point of discharge: Follow-up with your primary care physician within a week time and likely you will need labs CBC/CMP/magnesium/phosphorus. You were admitted to the hospital due to a fall. You are found to have hematoma in your knee and your thigh. Your blood level remained stable throughout the hospitalization. You are prescribed oxycodone to be used for severe pain as needed. You are also found to have UTI for which you are prescribed antibiotic. You were also found to have left kamara cellulitis, you are prescribed antibiotic. Take your medications as prescribed Please make sure that you are able to get your medications today by calling your pharmacy before you leave the hospital so that your treatment continuity is not broken. Please note the above document was generated using voice recognition software. It may contain grammatical, syntax or spelling errors. Any formal questions or concerns about the content, text or information contained within the body of this dictation should be directly addressed to the provider for clarification Home Health Attestation I certify that this patient is under my care and that I, or a physicians printing bindery assistant working with me, had a face to-face encounter that meets the home health [id number] encounter requirements with this patient. The encounter with the patient was in whole, or in part, for the following medical condition, which is the primary reason for home health care (list medical condition): I certify that, based on my findings, the following services are medically necessary home health services: My clinical findings support the need for the above services because: OT Assess ADL Status and Restore Function w ADLs PT Assessment for Endurance / Balance / Strength PT Eval for Safety and Mobility PT Eval for Safety, Gait Training, Assistive Devices PT Gait and Balance Training, Strengthening and Safety Skilled Nsg Assessment Further, I certify that my clinical findings support that this patient is homebound (i.e. absences from home require considerable and taxing effort and are for medical reasons or mormonism services or infrequently or of short duration when for other reasons) because: Supportive Aid - Walker Transportation Assistance/Unable to Leave Home Unassisted Certification for Home Health Services: Based on the above findings, I certify that this patient is confined to the home and needs intermittent long-term care, physical therapy and/or speech therapy or continues to need occupational therapy. The patient is under my care, and I have initiated the establishment of the plan of care. This patient will be followed by a physician who will periodically review the plan of care. Total Time Total Time Spent Total Time Spent (In Minutes): 35 Discharge Plan Discharge Items Patient Disposition: Home - Self-Care Reason For Visit: INABILITY TO WALK Discharge Diagnosis: Mechanical Fall Left knee and thigh hematoma Acute blood loss anemia Condition on Discharge: Good Activity: Resume your previous activity Non-emergency contact: Primary Care Provider Call non-emergency contact if: you have any medication questions and your symptoms worsen Follow-up/Referrals: Mohsen Vazquez MD [Primary Care Provider] - Diet: Carb Consistent or DM2 Addtl Attending Provider Instructions: Follow-up with your primary care physician within a week time and likely you will need labs CBC/CMP/magnesium/phosphorus. You were admitted to the hospital due to a fall. You are found to have hematoma in your knee and your thigh. Your blood level remained stable throughout the hospitalization. You are prescribed oxycodone to be used for severe pain as needed. You are also found to have UTI for which you are prescribed antibiotic. You were also found to have left kamara cellulitis, you are prescribed antibiotic. Take your medications as prescribed Please make sure that you are able to get your medications today by calling your pharmacy before you leave the hospital so that your treatment continuity is not broken. Pending Studies at Discharge: No Stand-Alone Forms: My [employer], Smoking Cessation Medications and DC Order Prescriptions: New Advanced Probiotic 625 mg (10 billion cell) Capsule 1 cap PO DAILY 7 Days Qty: 7 0RF cephalexin 500 mg capsule 500 mg PO Q6H 4 Days Qty: 16 0RF oxycodone 5 mg Tablet 5 mg PO Q6H PRN (Reason: pain) Qty: 10 0RF Continued (DME) pen needle, diabetic [Clickfine Pen Needle] 31 gauge x 5/16" needle See Rx Instructions .Route Qty: 500 3RF Rx Instructions: Use 5 per day gabapentin 600 mg tablet 600 mg PO TID Qty: 270 1RF diltiazem HCl 360 mg capsule,extended release 24 hr 360 mg PO DAILY insulin lispro [Humalog KwikPen Insulin] 100 unit/mL insulin pen 15 unit subcut TIDM (DME) Dexcom G6 Sensor Device See Rx Instructions .ROUTE Rx Instructions: As directed atorvastatin 40 mg Tablet 40 mg PO HS allopurinol 100 mg Tablet 100 mg PO BID gemfibrozil 600 mg Tablet 600 mg PO BID mometasone 50 mcg/actuation [place],Non-Aerosol 1 - 2 spray INTRANASAL QAM levothyroxine 112 mcg Tablet 112 mcg PO DAILYBB diclofenac sodium 1 % gel 2 g topical QID PRN (Reason: Pain) dabigatran etexilate [Pradaxa] 150 mg Capsule 150 mg PO BID Qty: 14 0RF famotidine [Pepcid] 20 mg tablet 20 mg PO BID coenzyme Q10 200 mg Capsule 200 mg PO DAILY metoprolol tartrate 25 mg Tablet 37.5 mg PO BID Qty: 90 0RF Combivent Respimat 20-100 mcg/actuation mist 1 puff INHALATION QID albuterol sulfate [Proventil] 2.5 mg /3 mL (0.083 %) Solution For Nebulization 2.5 mg INHALATION Q4H PRN (Reason: Wheezing) furosemide [Lasix] 20 mg Tablet 20 mg PO QAM albuterol sulfate [ProAir HFA] 90 mcg/actuation Hfa Aerosol Inhaler 2 puff INHALATION Q4H PRN (Reason: Wheezing) cholecalciferol (vitamin D3) [Vitamin D3] 25 mcg (1,000 unit) Capsule 25 mcg PO DAILY Mounjaro 7.5 mg/0.5 mL pen injector 7.5 mg SUBCUT WK Rx Instructions: MONDAYS PER PT "SKIPPED THIS PAST TUESDAY, D/T PROCEDURE TO BE DONE". magnesium glycinate 120 mg Capsule 240 mg PO QAM insulin glargine [Lantus Solostar U-100 Insulin] 100 unit/mL (3 mL) insulin pen 40 unit SUBCUT BID Discharge Orders: Discharge Order (Routine); Ordered 05/12/25 Ordered By: Floresita Skelton Admission Data Admit Date/Time: 05/01/25 18:20 Attending Provider: Floresita Skelton Admit Provider: Leighton Curtis Primary Care Provider: Mohsen Vazquez Other Providers: Leighton Curtis; Gustavo Prado; Pedro Farnsworth; [facility]; [facility]; [place]
== END 2025-05-12 16:47 | disposition home health service (06) | DRG 605 ==
LOC: ED 14:21 → SUATTDRO 18:20 → INTOOBSV 18:20 → 3N 18:20

== ENCOUNTER 2025-05-16 20:45 | Inpatient (IN) ==
[2025-05-16 21:24] LABS: Hematocrit (blood only) 34.5 % (37.0-47.0); Hemoglobin 11.1 g/dl (12.0-16.0); Immature Granulocytes # (auto) 0.06 K/uL (0.01-0.20); Immature Granulocytes % (auto) 0.5 %; Mean Corpuscular Hemoglobin 30.9 pg (25.0-34.0); Mean Corpuscular Volume 96.1 fL (80.0-100.0); Platelet Count 375 K/uL (130-400); RDW Standard Deviation 55.3 fL (36.4-46.3); Red Blood Count 3.59 M/uL (4.20-5.40); White Blood Count 13.09 K/ul (4.8-10.8)
--- NOTE | 2025-05-16 21:34 | Emergency Department Note ---
Impression & Plan SBO (small bowel obstruction) Admission ED Provider Note HPI: History obtained from patient. The patient is a 70-year-old female with history of morbid obesity, who presents the emergency department with a chief complaint of abdominal pain and back pain. Patient states her symptoms seem to have worsened throughout the day today. Patient does note history of abdominal wall hernias and she states she is concerned she might be having a small bowel obstruction. On arrival here to the ED the patient is hemodynamically stable, she states she does have some nausea but she denies any vomiting. Patient states she has moderate abdominal pain on arrival. ROS: - Per HPI Differential Diagnosis: Small bowel obstruction, viral gastroenteritis, acute gastritis, acute pancreatitis, acute cholecystitis, incarcerated hernia, amongst other potential pathologies. *Outpatient medications and allergy history reviewed. PE: General: Alert, morbidly obese HEENT: Normocephalic, trachea midline Eyes: Extraocular eye movement is intact, no scleral erythema Pulmonary: Clear to auscultation bilaterally, no wheezing Cardio: Regular rate and rhythm GI: Abdomen is soft to palpation, there is distention, there is a palpable large midline hernia with mild tenderness to palpation deep to the extensive subcutaneous adipose tissue : No suprapubic tenderness MSK: No evidence of trauma or malformation of the extremities, no edema Skin: No evidence of rash Neuro: Alert, no focal deficits Psychiatric: Cooperative INDEPENDENT INTERPRETATIONS: night monitor: (As interpreted by myself): - An order was placed for continuous cardiac monitoring - Patient was noted to be in atrial fibrillation with a rate of 78 EKG: (As interpreted by myself): Rate: 65 Rhythm: Atrial fibrillation Intervals: Within normal limits ST changes: No ST elevation Time: 2050 Chest x-ray: (As interpreted by myself): Mild pulmonary edema Interventions provided in ED: - IV morphine, IV Zofran, NG tube placement, IV fluid bolus Medical Decision Making: IV was established and lab work obtained, patient was placed on rn cardiac rehab. Lab work shows a mild leukocytosis but otherwise no critical findings. CT imaging of the abdomen pelvis was obtained and shows evidence of a high-grade small bowel obstruction. Troponin is negative and EKG shows rate controlled atrial fibrillation. I discussed these findings with the patient, she is in agreement for admission and states that the last several times she had a bowel obstruction it did resolve with conservative measures and NG tube placement. NG tube was ordered and placed, x-ray imaging confirms placement of NG tube. General surgery was consulted and the patient was evaluated at the bedside by Socrates Garcia PA-C in the service of Dr. Vieyra, attending general surgeon. I did discuss the patient's presentation with the on-call hospitalist, Dr. Dempsey, and the patient was placed for admission in stable condition. Consultants/Discussions held with other healthcare providers: - General Surgery, Dr. Vieyra - Hospitalist, Dr. Dempsey Disposition discussion held by myself with: - Patient Diagnosis: 1. High-grade small bowel obstruction, acute 2. Abdominal pain, acute 3. Leukocytosis, acute, nonspecific 4. Nausea, acute Disposition: Admission Matthieu Odell DO Emergency Medicine Past Med/Surg History Problem List (Updated 05/17/25 @ 10:04 by Matthieu Odell DO) SBO (small bowel obstruction) (Acute) Traumatic hematoma of left knee Ambulatory dysfunction (Acute) Acute pain of left knee (Acute) Accidental fall (Acute) HSV-1 (herpes simplex virus 1) infection Demand ischemia Acute metabolic encephalopathy E coli bacteremia Severe sepsis with acute organ dysfunction Sepsis Acute hip pain (Acute) Elevated troponin (Acute) Rhabdomyolysis (Acute) Acute hypokalemia (Acute) Atrial fibrillation with RVR (Acute) LISA (acute kidney injury) (Acute) Acute dehydration (Acute) Ventral hernia History of ovarian cancer Chronic atrial fibrillation Abnormal urinalysis Abdominal wall hernia (Acute) SBO (small bowel obstruction) (Acute) Uncontrolled type 2 diabetes mellitus with hyperglycemia, with long-term current use of insulin Neuropathy, Mild Nephropathy, Macrovascular complications Diabetes mellitus type 2, controlled, with complications Neuropathy, Mild Nephropathy, Macrovascular History of colon polyps Genetic defect Obesity, morbid, BMI 50 or higher (Chronic) Renal lesion Chronic anticoagulation (Chronic) Ambulatory dysfunction (Chronic) Altered mental status (Chronic) HTN (hypertension) (Chronic) HLD (hyperlipidemia) (Chronic) COPD (chronic obstructive pulmonary disease) (Chronic) NAVI (obstructive sleep apnea) (Chronic) cpap Diabetic neuropathy (Chronic) GERD (gastroesophageal reflux disease) (Chronic) Depression (Chronic) Hypothyroid (Chronic) Gout (Chronic) Atrial fibrillation (Chronic) Medical History Elevated troponin Loss of protective sensation of skin of foot Rectal bleed Lower gastrointestinal hemorrhage Nausea and vomiting after administration of anesthetic agent Hx of ovarian cancer 2018- surgical intervention, no chemo or radiation-[facility] [place] Liver lesion Liver cell injury Ovarian cancer on right 28 lb R adnexal mass removed 07/22/19 Edema Closed head injury Syncope Leg wound, right Atrial fibrillation with rapid ventricular response (07/14/14) - follows w/ dr norris last visit 1 yr ago- takes pradaxa Surgical History S/P appendectomy during hysterectomy S/P hysterectomy Status post colonoscopy with polypectomy History of cholecystectomy History of hernia repair during hysterectomy Family History Father Myocardial infarction Coronary heart disease Diabetes Mother Complication of surgery Diabetes Sister Diabetes Sister Diabetes Brother Diabetes "Pre-diabetic" Sister Diabetes Sister Gestational diabetes Grandmother (Paternal) Diabetes Grandmother (Maternal) Diabetes Social History Smoking Status: Never smoker Tobacco Type: Cigarettes Cigarettes Per Day: 1-2; Second Hand Exposure: No; Do You Dip or Chew Tobacco: No; Tobacco Cessation Education Requested by Patient: No Hx Alcohol Use: No Hx Substance Use: No Preferred Language: Eritrean Communication Ability: Effective Switch Adjuster Required: No Beliefs That Will Affect Care: None marital status: / Current Living Situation: Alone Current Living Situation Comment: Lives with Sister in Law and . Other Information That Helps Us Care for You: No Feels Safe at Home: Yes Safety Concerns: Feels Safe At This Time Assistive Devices: Walker Allergies Allergies Allergy/AdvReac Type Severity Reaction Status Date / Time nickel Allergy Mild Redness of Verified 05/17/25 01:48 Skin GIN Inhibitors Allergy Unknown Unknown Verified 05/17/25 01:48 cat dander Allergy Unknown Unknown Verified 05/17/25 01:48 cockroach Allergy Unknown Unknown Verified 05/17/25 01:48 house dust Allergy Unknown Unknown Verified 05/17/25 01:48 pioglitazone Allergy Unknown Unknown Verified 05/17/25 01:48 tree and shrub pollen Allergy Unknown Unknown Verified 05/17/25 01:48 empagliflozin AdvReac Intermediate CAUSED Verified 05/17/25 01:48 [From Jardiance] UTI'S codeine AdvReac Mild Nausea Verified 05/17/25 01:48 hydrocodone AdvReac Mild Nausea Verified 05/17/25 01:48 meperidine AdvReac Mild Nausea Verified 05/17/25 01:48 morphine AdvReac Mild Nausea Verified 05/17/25 01:48 Home Meds Home Medications Medication Instructions Recorded Confirmed allopurinol 100 mg tablet 100 mg PO BID 09/28/18 05/17/25 atorvastatin 40 mg tablet 40 mg PO HS 09/28/18 05/17/25 gemfibrozil 600 mg tablet 600 mg PO BID 09/28/18 05/17/25 levothyroxine 112 mcg tablet 112 mcg PO DAILYBB 09/28/18 05/17/25 mometasone 50 mcg/actuation nasal 1 - 2 spray intranasal QAM 09/28/18 05/17/25 spray diclofenac sodium 1 % topical gel 2 g topical QID PRN Pain 12/09/18 05/17/25 famotidine 20 mg tablet (Pepcid) 20 mg PO BID 11/10/23 05/17/25 diltiazem HCl 360 mg capsule,24 360 mg PO DAILY 03/23/24 05/17/25 hr,extended release blood-glucose sensor (Dexcom G6 12/07/24 03/31/25 Sensor device) insulin lispro 100 unit/mL 15 unit subcut TIDM 12/07/24 05/17/25 subcutaneous pen (Humalog KwikPen (U-100) Insulin) ipratropium 20 mcg-albuterol 100 1 puff inhalation QID 12/17/24 05/17/25 mcg/actuation mist for inhalation (Combivent Respimat) coenzyme Q10 200 mg capsule 200 mg PO DAILY 03/31/25 05/17/25 albuterol sulfate 2.5 mg/3 mL 2.5 mg inhalation Q4H PRN Wheezing 05/01/25 05/17/25 (0.083 %) solution for nebulization albuterol sulfate 90 mcg/actuation 2 puff inhalation Q4H PRN Wheezing 05/01/25 05/17/25 aerosol inhaler cholecalciferol (vitamin D3) 25 25 mcg PO DAILY 05/01/25 05/17/25 mcg (1,000 unit) capsule (Vitamin D3) furosemide 20 mg tablet (Lasix) 20 mg PO QAM 05/01/25 05/17/25 insulin glargine 100 unit/mL (3 40 unit subcut BID 05/01/25 05/17/25 mL) subcutaneous pen (Lantus Solostar U-100 Insulin) magnesium glycinate 120 mg (as 240 mg PO QAM 05/01/25 05/17/25 glycinate) capsule cephalexin 500 mg capsule 500 mg PO Q6H 05/17/25 05/17/25 tirzepatide 7.5 mg/0.5 mL 7.5 mg subcut WK 05/17/25 05/17/25 subcutaneous pen injector (Mounjaro) Previous Rx's Medication Instructions Recorded dabigatran etexilate 150 mg 150 mg PO BID #14 caps 04/17/22 capsule (Pradaxa) pen needle, diabetic 31 gauge x #500 ea 11/07/2302/15" (Clickfine Pen Needle) gabapentin 600 mg tablet 600 mg PO TID #270 tabs 01/10/25 metoprolol tartrate 25 mg tablet 37.5 mg (1.5 x 25 mg) PO BID #90 04/02/25 tabs L.acidop,casei,lactis,rham-B.lact,sarah 1 cap PO DAILY 7 days #7 caps 05/12/25 625 mg (10 billion cell) capsule (Advanced Probiotic) oxycodone 5 mg tablet 5 mg PO Q8H PRN pain (scale score 05/12/25 7-10) #15 tabs Results & Data (ED) Vital Signs Vital Signs - 24 hr 05/16/25 20:50 05/16/25 21:11 05/16/25 21:30 Temperature 37.2 C Temperature Source Oral Pulse Rate 63 Pulse Rate [Apical] 58 L Respiratory Rate 20 94 H Respiratory Effort / Characteristics Non-Labored Spontaneous Respiratory Depth Normal Blood Pressure 93/77 L Blood Pressure [Right Arm] 127/71 Blood Pressure Mean 82 Blood Pressure Mean [Right Arm] 89 Pulse Oximetry 97 Oxygen Delivery Method Room Air Room Air Sepsis Recent Fever Within 48 Hours No Sepsis New/Unexplained Change in Mental Status No Sepsis Action Taken by Nursing No Action Required 05/16/25 22:00 05/17/25 00:00 Temperature Temperature Source Pulse Rate Pulse Rate [Apical] 56 L 66 Respiratory Rate 18 18 Respiratory Effort / Characteristics Non-Labored Spontaneous Respiratory Depth Normal Blood Pressure Blood Pressure [Right Arm] 122/68 100/82 Blood Pressure Mean Blood Pressure Mean [Right Arm] 86 88 Pulse Oximetry 94 92 Oxygen Delivery Method Room Air Sepsis Recent Fever Within 48 Hours Sepsis New/Unexplained Change in Mental Status Sepsis Action Taken by Nursing Laboratory Data 05/17/25 06:35 05/17/25 06:35 Lab Results 05/16/25 05/17/25 Range/Units 20:55 01:51 WBC 13.09 H (4.8-10.8) K/ul RBC 3.59 L (4.20-5.40) M/uL Hgb 11.1 L (12.0-16.0) g/dl Hct 34.5 L (37.0-47.0) % MCV 96.1 (80.0-100.0) fL MCH 30.9 (25.0-34.0) pg MCHC 32.2 (32.0-36.0) g/dL RDW Std Deviation 55.3 H (36.4-46.3) fL RDW Coeff of Faraz 15.5 H (11.5-14.5) % Plt Count 375 (130-400) K/uL MPV 10.9 (9.4-12.4) fL Immature Gran % (Auto) 0.5 % Neut % (Auto) 72.8 % Lymph % (Auto) 17.1 % Pershing % (Auto) 6.5 % Eos % (Auto) 2.4 % Baso % (Auto) 0.7 % Neut # (Auto) 9.54 H (1.40-6.50) K/uL Lymph # (Auto) 2.24 (1.20-3.40) K/uL Pershing # (Auto) 0.85 H (0.11-0.59) K/uL Eos # (Auto) 0.31 (0.00-0.50) K/uL Baso # (Auto) 0.09 (0.00-0.20) K/uL Immature Gran # (Auto) 0.06 (0.01-0.20) K/uL PT 13.3 H (9.0-12.0) Seconds INR 1.2 H (0.9-1.1) Sodium 140 (136-145) mmol/L Potassium 3.8 (3.5-5.1) mmol/L Chloride 102 (98-107) mmol/L Carbon Dioxide 28 (21-32) mmol/L Anion Gap 10 (3-11) BUN 30 H (6-23) mg/dl Creatinine 0.92 (0.6-1.2) mg/dl Est Cr Clr Drug Dosing 82.1 ml/min eGFR 66.98 BUN/Creatinine Ratio 32.6 H (10-20) Glucose 183 H (70-99(Fasting)) mg/dl Lactate 1.4 (0.4-2.0) mmol/L Calcium 9.2 (8.6-10.3) mg/dl Magnesium 2.2 (1.7-2.4) mg/dl Total Bilirubin 0.6 (0.2-1.0) mg/dl AST 21 (13-39) U/L ALT 17 (7-52) U/L Alkaline Phosphatase 141 H (34-104) U/L Troponin I High Sens 9.0 (0-14) pg/ml Total Protein 7.0 (6.0-8.3) gm/dl Albumin 3.7 (3.4-5.0) gm/dl Globulin 3.3 (2.5-4.0) gm/dl Albumin/Globulin Ratio 1.1 (0.9-2) Lipase 18 (11-82) U/L Administered Medications Albuterol (Albuterol Hfa 8 Gm Inhaler (Combivent Respimat P&T Subs)) 1 puffs INH QIDR [facility]; Protocol Stop: 06/16/25 06:59 Last Admin: 05/17/25 09:31 Dose: 1 puffs Documented By: CFD Allopurinol (Allopurinol 100 Mg Tab) 100 mg PO BID [facility] Stop: 06/16/25 08:59 Last Admin: 05/17/25 09:37 Dose: 100 mg Documented By: CFD Diltiazem HCl (Diltiazem Hcl 180 Mg Capcr) 360 mg PO DAILY [facility] Stop: 06/16/25 08:59 Last Admin: 05/17/25 09:37 Dose: 360 mg Documented By: CFD Fluticasone Propionate (Fluticasone Propionate Na Spr 16 Gm Btl) 1 sprays NA QAM [facility] Stop: 06/16/25 08:59 Last Admin: 05/17/25 09:32 Dose: 1 sprays Documented By: JOSIE Gabapentin (Gabapentin 600 Mg Tab) 600 mg PO TID [facility] Stop: 06/16/25 08:59 Last Admin: 05/17/25 09:37 Dose: 600 mg Documented By: JOSIE Gemfibrozil (Gemfibrozil 600 Mg Tab) 600 mg PO BID [facility] Stop: 06/16/25 08:59 Last Admin: 05/17/25 09:39 Dose: 600 mg Documented By: JOSIE Lactated Ringer's (Lr) 1,000 mls @ 50 mls/hr IV .Q20H ONE Stop: 05/17/25 21:20 Last Admin: 05/17/25 01:35 Dose: 50 mls/hr Documented By: LÁZARO Famotidine (Pepcid 20mg Iv Push) 20 mg in 5 mls @ 2.5 mls/min IV BID [facility] Stop: 06/16/25 08:59 Last Admin: 05/17/25 09:49 Dose: Not Given Documented By: JOSIE Insulin Aspart (Insulin Aspart Per Unit Charge) 0 units SC ACHS [facility] Stop: 06/16/25 03:29 Last Admin: 05/17/25 09:34 Dose: Not Given Documented By: Admin: 05/17/25 03:34 Dose: Not Given Documented By: MAURICE Insulin Glargine (Lantus Per Unit Charge) 10 units SQ BID [facility] Stop: 06/16/25 08:59 Last Admin: 05/17/25 09:49 Dose: 10 units Documented By: JOSIE Co-signed By: YON Ipratropium Dubois (Ipratropium Hfa Inhaler (Combivent Respimat P&T Subs)) 1 puffs INH QIDR [facility]; Protocol Stop: 06/16/25 06:59 Last Admin: 05/17/25 09:36 Dose: 1 puffs Documented By: JOSIE Lactobacillus Acidophilus (Advanced Probiotic 625 Mg Capsule) 625 mg PO DAILY [facility] Stop: 06/16/25 08:59 Last Admin: 05/17/25 09:38 Dose: 625 mg Documented By: JOSIE Levothyroxine Sodium (Levothyroxine Sodium 112 Mcg Tablet) 112 mcg PO DAILYBB [facility] Stop: 06/16/25 06:29 Last Admin: 05/17/25 06:06 Dose: 112 mcg Documented By: MAURICE Metoprolol Tartrate (Metoprolol Tartrate 1 Mg/Ml Vial) 2.5 mg IV Q6 CAMPOS Stop: 06/16/25 05:59 Last Admin: 05/17/25 06:06 Dose: 2.5 mg Documented By: MAURICE Discontinued Medications Sodium Chloride (Nss) 1,000 mls @ 999 mls/hr IV .Q1H1M ONE Stop: 05/16/25 22:33 Last Infusion: 05/16/25 22:53 Dose: Infused Documented By: Admin: 05/16/25 21:43 Dose: 999 mls/hr Documented By: MELIA Dextrose/Sodium Chloride (D5w And 1/2nss) 1,000 mls @ 125 mls/hr IV .Q8H CAMPOS Stop: 05/20/25 01:14 Last Admin: 05/17/25 01:35 Dose: Not Given Documented By: LÁZARO Ioversol (Optiray 320 125ml) 125 ml IV ONCE ONE Stop: 05/16/25 23:40 Last Admin: 05/16/25 23:39 Dose: 118 ml Documented By: RAYMOND Morphine Sulfate (Morphine Sulfate 4 Mg/Ml 1 Ml Carp\\Vial) 4 mg IV NOW STA Stop: 05/16/25 21:34 Last Admin: 05/16/25 21:44 Dose: 4 mg Documented By: MELIA Ondansetron HCl (Ondansetron Inj 2 Mg/Ml 2 Ml Vial) 4 mg IV NOW STA Stop: 05/16/25 21:34 Last Admin: 05/16/25 21:44 Dose: 4 mg Documented By: MELIA Imaging Data Radiologist's Impression: Chest X-Ray 05/16/25 21:11 Exam(s): XR CXR 1 VIEW EXAM: XR Chest, 1 View CLINICAL HISTORY: Reason for exam: Chest pain, nonspecific. TECHNIQUE: Frontal view of the chest. COMPARISON: 04/03/2025 FINDINGS: Lungs: Pulmonary vasculature is prominent centrally. Possible mild edema. No focal consolidation is seen. Pleural space: Unremarkable. No pneumothorax. Heart: The cardiac silhouette is mildly enlarged. Mediastinum: Unremarkable. Normal mediastinal contour. Bones/joints: Mild osteophytosis in the mid to lower thoracic spine. No acute fracture. Upper abdomen: Unremarkable as visualized. No pneumoperitoneum under the diaphragm. IMPRESSION: 1. Pulmonary vasculature is prominent centrally. Possible mild pulmonary edema. No focal consolidation is seen. 2. The cardiac silhouette is mildly enlarged. Electronically signed by: Eliu Morillo MD 05/16/25 23:58 PM Abdomen/Pelvis CT 05/16/25 21:32 Exam(s): CT ABDOMEN + PELVIS With Contrast IV Amt: 118 ml optiray 320 EXAM: CT Abdomen and Pelvis With Intravenous Contrast CLINICAL HISTORY: Reason for exam: Abdominal pain, history of SBO. TECHNIQUE: Axial computed tomography images of the abdomen and pelvis with intravenous contrast. CTDI is 35.23 mGy and DLP is 2268.73 mGy-cm. Automated exposure control was utilized for the study. A dose lowering technique was utilized adhering to the principles of ALARA. CONTRAST: Patient received 118 ml optiray 320 of IV contrast COMPARISON: No relevant prior studies available. FINDINGS: Lung bases: Small amount of bibasilar atelectasis. ABDOMEN: Liver: Unremarkable. No mass. Gallbladder and bile ducts: Mild biliary duct dilation post cholecystectomy. The common bile duct measures up to 10 mm. No choledocholithiasis is identified. Pancreas: Unremarkable. No mass. No ductal dilation. Spleen: Unremarkable. No splenomegaly. Adrenals: Unremarkable. No mass. Kidneys and ureters: 1.8 cm slightly hyperdense cyst extending off the right kidney. This is slightly smaller than previous. No additional follow-up is required. No hydronephrosis. Stomach and bowel: Multiple dilated small bowel loops demonstrating gas fluid levels throughout the mid to upper abdomen. This includes small bowel loops within a large bilobed right anterior abdominal and pelvic wall hernia measuring at least 19 cm. There is associated edema and a small amount of free fluid in the hernia. The small bowel immediately distal to the hernia is completely decompressed indicating high-grade bowel obstruction. The stomach is fully distended with fluid and upper normal in diameter. 7 cm of stool in the rectum. Some component of constipation is suspected. Diverticulosis of the left and sigmoid colon without acute diverticulitis. PELVIS: Appendix: No findings to suggest acute appendicitis. Bladder: Unremarkable. No mass. Reproductive: The uterus is absent. ABDOMEN and PELVIS: Intraperitoneal space: See above. Bones/joints: [id number] multilevel degenerative changes throughout the spine. No acute fracture or subluxation is seen. Soft tissues: Mild diffuse anasarca over the torso. Vasculature: The abdominal aorta is mildly calcified but nondilated. Lymph nodes: Unremarkable. No enlarged lymph nodes. IMPRESSION: Multiple dilated small bowel loops demonstrating gas fluid levels throughout the mid to upper abdomen. This includes small bowel loops within a large bilobed right anterior abdominal and pelvic wall hernia measuring at least 19 cm. There is associated edema and a small amount of free fluid in the hernia. The small bowel immediately distal to the hernia is completely decompressed indicating high-grade bowel obstruction. This is similar in configuration to previous. Electronically signed by: Eliu Morillo MD 05/17/25 00:57 AM KUB X-Ray 05/17/25 01:33 EXAM: XR KUB/Abdomen 1 view CLINICAL HISTORY: NG placement TECHNIQUE: X-ray images of the chest were obtained in anteroposterior (AP) projection. COMPARISON: Compared to the last study dated 03/31/2025. FINDINGS: Pulmonary Parenchyma: Limited view with images of the lower chest only available. Scanned parts of the lung show no evidence of consolidation, collapse, or focal opacities. No pulmonary nodules identified. No evidence of pleural effusion or pleural thickening. Heart and Mediastinum: Cardiomegaly is noted. Bony Thorax: Bony thorax appears intact without fractures or deformities. Soft Tissues: Soft tissues overlying the chest wall are unremarkable. Evidence of an NG tube with its tip seen below the left hemidiaphragm in the appropriate location. IMPRESSION: 1. Evidence of an NG tube with its tip seen below the left hemidiaphragm in the appropriate location. 2. Cardiomegaly is noted. 3. No other interval changes in the limited view. Electronically signed by Tucker Navarro 05-17-2025 02:19 AM Discharge Plan Visit Data Chief Complaint: Cardiac Assessment Stated Complaint: CHEST, BACK, ABD PAIN ED Provider: Matthieu Odell Discharge Problem: SBO (small bowel obstruction) Patient Disposition: Admitted As Inpatient Condition: Fair Discharge Instructions Interventions: ED Discharge Assessment Last Done: 05/17/25 03:11
[2025-05-16 21:41] LABS: Alanine Aminotransferase 17.0 U/L (7-52); Albumin Globulin Ratio 1.1 (0.9-2); Alkaline Phosphatase 141.0 U/L (34-104); Anion Gap 10.0 (3-11); Bilirubin,Total 0.6 mg/dl (0.2-1.0); Blood Urea Nitrogen 30.0 mg/dl (6-23); Calcium 9.2 mg/dl (8.6-10.3); Carbon Dioxide 28.0 mmol/L (21-32); Chloride 102.0 mmol/L (98-107); Creatinine Clr Calc Pharmacy 82.1 ml/min; Globulin 3.3 gm/dl (2.5-4.0); Glucose 183.0 mg/dl (70-99(Fasting)); Lipase 18.0 U/L (11-82); Potassium 3.8 mmol/L (3.5-5.1); Sodium 140.0 mmol/L (136-145); Total Protein 7.0 gm/dl (6.0-8.3)
[2025-05-16] MEDS: SODIUM CHLORIDE 0.9% 1,000 ML IV ONE (21:43)
[2025-05-16] MEDS: ONDANSETRON INJ 2 MG/ML 2 ML VIAL IV STA (21:44)
[2025-05-16] MEDS: MoRPHine SULFATE 4 MG/ML 1 ML CARP\\VIAL IV STA (21:44)
[2025-05-16 21:54] LABS: INR 1.2 (0.9-1.1); Prothrombin Time 13.3 Seconds (9.0-12.0)
[2025-05-16] MEDS: OPTIRAY 320 125ml IV ONE (23:39)
--- NOTE | 2025-05-16 23:59 | XRay Report ---
Exam(s): XR CXR 1 VIEW EXAM: XR Chest, 1 View CLINICAL HISTORY: Reason for exam: Chest pain, nonspecific. TECHNIQUE: Frontal view of the chest. COMPARISON: 04/03/2025 FINDINGS: Lungs: Pulmonary vasculature is prominent centrally. Possible mild edema. No focal consolidation is seen. Pleural space: Unremarkable. No pneumothorax. Heart: The cardiac silhouette is mildly enlarged. Mediastinum: Unremarkable. Normal mediastinal contour. Bones/joints: Mild osteophytosis in the mid to lower thoracic spine. No acute fracture. Upper abdomen: Unremarkable as visualized. No pneumoperitoneum under the diaphragm. IMPRESSION: 1. Pulmonary vasculature is prominent centrally. Possible mild pulmonary edema. No focal consolidation is seen. 2. The cardiac silhouette is mildly enlarged. Electronically signed by: Eliu Morillo MD 05/16/25 23:58 PM
--- NOTE | 2025-05-17 00:57 | CT Scan Report ---
Exam(s): CT ABDOMEN + PELVIS With Contrast IV Amt: 118 ml optiray 320 EXAM: CT Abdomen and Pelvis With Intravenous Contrast CLINICAL HISTORY: Reason for exam: Abdominal pain, history of SBO. TECHNIQUE: Axial computed tomography images of the abdomen and pelvis with intravenous contrast. CTDI is 35.23 mGy and DLP is 2268.73 mGy-cm. Automated exposure control was utilized for the study. A dose lowering technique was utilized adhering to the principles of ALARA. CONTRAST: Patient received 118 ml optiray 320 of IV contrast COMPARISON: No relevant prior studies available. FINDINGS: Lung bases: Small amount of bibasilar atelectasis. ABDOMEN: Liver: Unremarkable. No mass. Gallbladder and bile ducts: Mild biliary duct dilation post cholecystectomy. The common bile duct measures up to 10 mm. No choledocholithiasis is identified. Pancreas: Unremarkable. No mass. No ductal dilation. Spleen: Unremarkable. No splenomegaly. Adrenals: Unremarkable. No mass. Kidneys and ureters: 1.8 cm slightly hyperdense cyst extending off the right kidney. This is slightly smaller than previous. No additional follow-up is required. No hydronephrosis. Stomach and bowel: Multiple dilated small bowel loops demonstrating gas fluid levels throughout the mid to upper abdomen. This includes small bowel loops within a large bilobed right anterior abdominal and pelvic wall hernia measuring at least 19 cm. There is associated edema and a small amount of free fluid in the hernia. The small bowel immediately distal to the hernia is completely decompressed indicating high-grade bowel obstruction. The stomach is fully distended with fluid and upper normal in diameter. 7 cm of stool in the rectum. Some component of constipation is suspected. Diverticulosis of the left and sigmoid colon without acute diverticulitis. PELVIS: Appendix: No findings to suggest acute appendicitis. Bladder: Unremarkable. No mass. Reproductive: The uterus is absent. ABDOMEN and PELVIS: Intraperitoneal space: See above. Bones/joints: Gabn-[id number] multilevel degenerative changes throughout the spine. No acute fracture or subluxation is seen. Soft tissues: Mild diffuse anasarca over the torso. Vasculature: The abdominal aorta is mildly calcified but nondilated. Lymph nodes: Unremarkable. No enlarged lymph nodes. IMPRESSION: Multiple dilated small bowel loops demonstrating gas fluid levels throughout the mid to upper abdomen. This includes small bowel loops within a large bilobed right anterior abdominal and pelvic wall hernia measuring at least 19 cm. There is associated edema and a small amount of free fluid in the hernia. The small bowel immediately distal to the hernia is completely decompressed indicating high-grade bowel obstruction. This is similar in configuration to previous. Electronically signed by: Eliu Morillo MD 05/17/25 00:57 AM
--- NOTE | 2025-05-17 01:27 | History & Physical Report ---
Date of Service May 17, 2025 Assessment & Plan (1) SBO (small bowel obstruction): Plan: Assessment and plan below following discussion of case with ED provider and reviewing patient history/pertinent normal/abnormal diagnostic test results. Recurrent SBO History of ventral hernia Hypertensive urgency secondary to above Atrial fibrillation, rate controlled on Pradaxa COPD/NAVI on BiPAP, baseline pulmonary symptoms DM2 insulin requiring, well-controlled as of recent hemoglobin A1c of 5.7 last December 2024 hypothyroidism, euthyroid as of recent TSH on file ovarian cancer status post surgery, patient in remission anxiety/mood disorder, at baseline morbid obesity past tobacco abuse Admit to medical telemetry IV Lopressor [id number] while n.p.o. due to bowel obstruction Hold Pradaxa for now given epistaxis noted post NGT insertion, IV heparin in place of Pradaxa given potential surgery once epistaxis resolved and H&H stable Bowel rest, continue NGT decompression Surgery consult re: recurrent SBO (ED provider already in touch with service.) Basal bolus insulin adjusted for n.p.o. status, ISS BG goal 110-140 DVT prophylaxis. IV heparin while Pradaxa on hold once epistaxis resolved if H&H stable Full code Patient sister requesting updates from providers. Mr. Annamarie Lu, contact #[phone]. Text document was generated using [employer] voice recognition software. It may contain grammatical or spelling errors. Kindly contact undersigned for clarification of any documentation item in question. History of Present Illness Chief Complaint: Abdominal pain Primary Care Provider: Mohsen Vazquez MD History obtained from patient, family, and records. Medical history significant for A-fib on Pradaxa, hypertension, COPD, NAVI on BiPAP, DM2 insulin requiring, hypothyroidism, ovarian cancer status post surgery, GERD, chronic anemia (baseline hemoglobin 9-10), anxiety/mood disorder, recurrent bowel obstruction, ventral hernia, morbid obesity, past tobacco abuse. Monthly confinements since March,. Recent confinement last week for left knee/thigh hematoma secondary to mechanical fall secondary to ambulatory dysfunction, LLE cellulitis and UTI. Patient discharged home on Keflex course. 2 days history of achy abdominal pain going to the chest and back with nausea symptoms. No emesis, no fever, no chills. Bowel movements okay. NGT inserted at the ER for bowel obstruction. Highest SBP 170s noted at the ER. Epistaxis noted during NGT insertion. 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 Allergies Allergy/AdvReac Type Severity Reaction Status Date / Time nickel Allergy Mild Redness of Verified 05/17/25 01:48 Skin GIN Inhibitors Allergy Unknown Unknown Verified 05/17/25 01:48 cat dander Allergy Unknown Unknown Verified 05/17/25 01:48 cockroach Allergy Unknown Unknown Verified 05/17/25 01:48 house dust Allergy Unknown Unknown Verified 05/17/25 01:48 pioglitazone Allergy Unknown Unknown Verified 05/17/25 01:48 tree and shrub pollen Allergy Unknown Unknown Verified 05/17/25 01:48 empagliflozin AdvReac Intermediate CAUSED Verified 05/17/25 01:48 [From Jardiance] UTI'S codeine AdvReac Mild Nausea Verified 05/17/25 01:48 hydrocodone AdvReac Mild Nausea Verified 05/17/25 01:48 meperidine AdvReac Mild Nausea Verified 05/17/25 01:48 morphine AdvReac Mild Nausea Verified 05/17/25 01:48 Home Medications Medication Instructions Recorded Confirmed Type allopurinol 100 mg tablet 100 mg PO BID 09/28/18 05/17/25 History atorvastatin 40 mg tablet 40 mg PO HS 09/28/18 05/17/25 History gemfibrozil 600 mg tablet 600 mg PO BID 09/28/18 05/17/25 History levothyroxine 112 mcg tablet 112 mcg PO DAILYBB 09/28/18 05/17/25 History mometasone 50 mcg/actuation nasal 1 - 2 spray intranasal QAM 09/28/18 05/17/25 History spray diclofenac sodium 1 % topical gel 2 g topical QID PRN Pain 12/09/18 05/17/25 History dabigatran etexilate 150 mg 150 mg PO BID #14 caps 04/17/22 05/17/25 Rx capsule (Pradaxa) pen needle, diabetic 31 gauge x #500 ea 11/07/23 12/07/24 Rx 5/16" (Clickfine Pen Needle) famotidine 20 mg tablet (Pepcid) 20 mg PO BID 11/10/23 05/17/25 History diltiazem HCl 360 mg capsule,24 360 mg PO DAILY 03/23/24 05/17/25 History hr,extended release blood-glucose sensor (Dexcom G6 12/07/24 03/31/25 History Sensor device) insulin lispro 100 unit/mL 15 unit subcut TIDM 12/07/24 05/17/25 History subcutaneous pen (Humalog KwikPen (U-100) Insulin) ipratropium 20 mcg-albuterol 100 1 puff inhalation QID 12/17/24 05/17/25 History mcg/actuation mist for inhalation (Combivent Respimat) gabapentin 600 mg tablet 600 mg PO TID #270 tabs 01/10/25 05/17/25 Rx coenzyme Q10 200 mg capsule 200 mg PO DAILY 03/31/25 05/17/25 History metoprolol tartrate 25 mg tablet 37.5 mg (1.5 x 25 mg) PO BID #90 04/02/25 05/17/25 Rx tabs albuterol sulfate 2.5 mg/3 mL 2.5 mg inhalation Q4H PRN Wheezing 05/01/25 05/17/25 History (0.083 %) solution for nebulization albuterol sulfate 90 mcg/actuation 2 puff inhalation Q4H PRN Wheezing 05/01/25 05/17/25 History aerosol inhaler cholecalciferol (vitamin D3) 25 25 mcg PO DAILY 05/01/25 05/17/25 History mcg (1,000 unit) capsule (Vitamin D3) furosemide 20 mg tablet (Lasix) 20 mg PO QAM 05/01/25 05/17/25 History insulin glargine 100 unit/mL (3 40 unit subcut BID 05/01/25 05/17/25 History mL) subcutaneous pen (Lantus Solostar U-100 Insulin) magnesium glycinate 120 mg (as 240 mg PO QAM 05/01/25 05/17/25 History glycinate) capsule L.acidop,casei,lactis,rham-B.lact,sarah 1 cap PO DAILY 7 days #7 caps 05/12/25 05/17/25 Rx 625 mg (10 billion cell) capsule (Advanced Probiotic) oxycodone 5 mg tablet 5 mg PO Q8H PRN pain (scale score 05/12/25 05/17/25 Rx 7-10) #15 tabs cephalexin 500 mg capsule 500 mg PO Q6H 05/17/25 05/17/25 History tirzepatide 7.5 mg/0.5 mL 7.5 mg subcut WK 05/17/25 05/17/25 History subcutaneous pen injector (Jess) Past Med/Surg History Problem List Traumatic hematoma of left knee Ambulatory dysfunction (Acute) Acute pain of left knee (Acute) Accidental fall (Acute) HSV-1 (herpes simplex virus 1) infection Demand ischemia Acute metabolic encephalopathy E coli bacteremia Severe sepsis with acute organ dysfunction Sepsis Acute hip pain (Acute) Elevated troponin (Acute) Rhabdomyolysis (Acute) Acute hypokalemia (Acute) Atrial fibrillation with RVR (Acute) LISA (acute kidney injury) (Acute) Acute dehydration (Acute) Ventral hernia History of ovarian cancer Chronic atrial fibrillation Abnormal urinalysis Abdominal wall hernia (Acute) SBO (small bowel obstruction) (Acute) Uncontrolled type 2 diabetes mellitus with hyperglycemia, with long-term current use of insulin Neuropathy, Mild Nephropathy, Macrovascular complications Diabetes mellitus type 2, controlled, with complications Neuropathy, Mild Nephropathy, Macrovascular History of colon polyps Genetic defect Obesity, morbid, BMI 50 or higher (Chronic) Renal lesion Chronic anticoagulation (Chronic) Ambulatory dysfunction (Chronic) Altered mental status (Chronic) HTN (hypertension) (Chronic) HLD (hyperlipidemia) (Chronic) COPD (chronic obstructive pulmonary disease) (Chronic) NAVI (obstructive sleep apnea) (Chronic) cpap Diabetic neuropathy (Chronic) GERD (gastroesophageal reflux disease) (Chronic) Depression (Chronic) Hypothyroid (Chronic) Gout (Chronic) Atrial fibrillation (Chronic) Medical History Elevated troponin Loss of protective sensation of skin of foot Rectal bleed Lower gastrointestinal hemorrhage Nausea and vomiting after administration of anesthetic agent Hx of ovarian cancer 2018- surgical intervention, no chemo or [facility] Liver lesion Liver cell injury Ovarian cancer on right 28 lb R adnexal mass removed 07/22/19 Edema Closed head injury Syncope Leg wound, right Atrial fibrillation with rapid ventricular response (07/14/14) - follows w/ dr norris last visit 1 yr ago- takes pradaxa Surgical History S/P appendectomy during hysterectomy S/P hysterectomy Status post colonoscopy with polypectomy History of cholecystectomy History of hernia repair during hysterectomy Family History Father Myocardial infarction Coronary heart disease Diabetes Mother Complication of surgery Diabetes Sister Diabetes Sister Diabetes Brother Diabetes "Pre-diabetic" Sister Diabetes Sister Gestational diabetes Grandmother (Paternal) Diabetes Grandmother (Maternal) Diabetes Social History Smoking Status: Never smoker Tobacco Type: Cigarettes Cigarettes Per Day: 1-2; Second Hand Exposure: No; Do You Dip or Chew Tobacco: No; Tobacco Cessation Education Requested by Patient: No Hx Alcohol Use: No Hx Substance Use: No Preferred Language: Burkinan Communication Ability: Effective Machine Cell Tuber Required: No Beliefs That Will Affect Care: None marital status: / Current Living Situation: Alone Current Living Situation Comment: Lives with Sister in Law and . Other Information That Helps Us Care for You: No Feels Safe at Home: Yes Safety Concerns: Feels Safe At This Time Assistive Devices: Walker Review of Systems Review of Systems: As per HPI, all other systems reviewed and negative Physical Exam Physical Exam: GENERAL: Pleasant, morbidly obese, no respiratory distress SKIN: Pallor, warm HEENT: Pale palpebral conjunctivae, no ptosis, dry buccal mucosa, NGT in place NECK : Supple, short neck, no tenderness CHEST : Decreased breath sounds, no tenderness HEART : Irregular, no obvious murmurs ABDOMEN: Some distention, no overt tenderness EXTREMITIES : Minimal LE swelling, no LE tenderness, no other conspicuous deformities noted NEUROLOGIC : Coherent, no facial asymmetry, no other gross focality Results & Data Results & Data Vital Signs (Past 12 Hours) Vital Signs Temp Pulse Pulse Resp BP BP Pulse Ox 05/16/25 22:00 56 L 18 122/68 94 05/16/25 21:30 58 L 94 H 127/71 05/16/25 21:11 05/16/25 20:50 37.2 C 63 20 93/77 L 97 O2 Del Method 05/16/25 22:00 05/16/25 21:30 05/16/25 21:11 Room Air 05/16/25 20:50 Room Air Laboratory Results Laboratory Results WBC 13.09 K/ul (4.8-10.8) H 05/16/25 20:55 RBC 3.59 M/uL (4.20-5.40) L 05/16/25 20:55 Hgb 11.1 g/dl (12.0-16.0) L 05/16/25 20:55 Hct 34.5 % (37.0-47.0) L 05/16/25 20:55 MCV 96.1 fL (80.0-100.0) 05/16/25 20:55 MCH 30.9 pg (25.0-34.0) 05/16/25 20:55 MCHC 32.2 g/dL (32.0-36.0) 05/16/25 20:55 RDW Std Deviation 55.3 fL (36.4-46.3) H 05/16/25 20:55 RDW Coeff of Faraz 15.5 % (11.5-14.5) H 05/16/25 20:55 Plt Count 375 K/uL (130-400) 05/16/25 20:55 MPV 10.9 fL (9.4-12.4) 05/16/25 20:55 Immature Gran % (Auto) 0.5 % 05/16/25 20:55 Neut % (Auto) 72.8 % 05/16/25 20:55 Lymph % (Auto) 17.1 % 05/16/25 20:55 Chase % (Auto) 6.5 % 05/16/25 20:55 Eos % (Auto) 2.4 % 05/16/25 20:55 Baso % (Auto) 0.7 % 05/16/25 20:55 Neut # (Auto) 9.54 K/uL (1.40-6.50) H 05/16/25 20:55 Lymph # (Auto) 2.24 K/uL (1.20-3.40) 05/16/25 20:55 Chase # (Auto) 0.85 K/uL (0.11-0.59) H 05/16/25 20:55 Eos # (Auto) 0.31 K/uL (0.00-0.50) 05/16/25 20:55 Baso # (Auto) 0.09 K/uL (0.00-0.20) 05/16/25 20:55 Immature Gran # (Auto) 0.06 K/uL (0.01-0.20) 05/16/25 20:55 PT 13.3 Seconds (9.0-12.0) H 05/16/25 20:55 INR 1.2 (0.9-1.1) H 05/16/25 20:55 Sodium 140 mmol/L (136-145) 05/16/25 20:55 Potassium 3.8 mmol/L (3.5-5.1) 05/16/25 20:55 Chloride 102 mmol/L (98-107) 05/16/25 20:55 Carbon Dioxide 28 mmol/L (21-32) 05/16/25 20:55 Anion Gap 10 (3-11) 05/16/25 20:55 BUN 30 mg/dl (6-23) H 05/16/25 20:55 Creatinine 0.92 mg/dl (0.6-1.2) 05/16/25 20:55 Est Cr Clr Drug Dosing 82.1 ml/min 05/16/25 20:55 eGFR 66.98 05/16/25 20:55 BUN/Creatinine Ratio 32.6 (10-20) H 05/16/25 20:55 Glucose 183 mg/dl (70-99(Fasting)) H 05/16/25 20:55 Calcium 9.2 mg/dl (8.6-10.3) 05/16/25 20:55 Total Bilirubin 0.6 mg/dl (0.2-1.0) 05/16/25 20:55 AST 21 U/L (13-39) 05/16/25 20:55 ALT 17 U/L (7-52) 05/16/25 20:55 Alkaline Phosphatase 141 U/L (34-104) H 05/16/25 20:55 Troponin I High Sens 9.0 pg/ml (0-14) 05/16/25 20:55 Total Protein 7.0 gm/dl (6.0-8.3) 05/16/25 20:55 Albumin 3.7 gm/dl (3.4-5.0) 05/16/25 20:55 Globulin 3.3 gm/dl (2.5-4.0) 05/16/25 20:55 Albumin/Globulin Ratio 1.1 (0.9-2) 05/16/25 20:55 Lipase 18 U/L (11-82) 05/16/25 20:55 Impressions Chest X-Ray 05/16/25 21:11 Exam(s): XR CXR 1 VIEW EXAM: XR Chest, 1 View CLINICAL HISTORY: Reason for exam: Chest pain, nonspecific. TECHNIQUE: Frontal view of the chest. COMPARISON: 04/03/2025 FINDINGS: Lungs: Pulmonary vasculature is prominent centrally. Possible mild edema. No focal consolidation is seen. Pleural space: Unremarkable. No pneumothorax. Heart: The cardiac silhouette is mildly enlarged. Mediastinum: Unremarkable. Normal mediastinal contour. Bones/joints: Mild osteophytosis in the mid to lower thoracic spine. No acute fracture. Upper abdomen: Unremarkable as visualized. No pneumoperitoneum under the diaphragm. IMPRESSION: 1. Pulmonary vasculature is prominent centrally. Possible mild pulmonary edema. No focal consolidation is seen. 2. The cardiac silhouette is mildly enlarged. Electronically signed by: Eliu Morillo MD 05/16/25 23:58 PM Abdomen/Pelvis CT 05/16/25 21:32 Exam(s): CT ABDOMEN + PELVIS With Contrast IV Amt: 118 ml optiray 320 EXAM: CT Abdomen and Pelvis With Intravenous Contrast CLINICAL HISTORY: Reason for exam: Abdominal pain, history of SBO. TECHNIQUE: Axial computed tomography images of the abdomen and pelvis with intravenous contrast. CTDI is 35.23 mGy and DLP is 2268.73 mGy-cm. Automated exposure control was utilized for the study. A dose lowering technique was utilized adhering to the principles of ALARA. CONTRAST: Patient received 118 ml optiray 320 of IV contrast COMPARISON: No relevant prior studies available. FINDINGS: Lung bases: Small amount of bibasilar atelectasis. ABDOMEN: Liver: Unremarkable. No mass. Gallbladder and bile ducts: Mild biliary duct dilation post cholecystectomy. The common bile duct measures up to 10 mm. No choledocholithiasis is identified. Pancreas: Unremarkable. No mass. No ductal dilation. Spleen: Unremarkable. No splenomegaly. Adrenals: Unremarkable. No mass. Kidneys and ureters: 1.8 cm slightly hyperdense cyst extending off the right kidney. This is slightly smaller than previous. No additional follow-up is required. No hydronephrosis. Stomach and bowel: Multiple dilated small bowel loops demonstrating gas fluid levels throughout the mid to upper abdomen. This includes small bowel loops within a large bilobed right anterior abdominal and pelvic wall hernia measuring at least 19 cm. There is associated edema and a small amount of free fluid in the hernia. The small bowel immediately distal to the hernia is completely decompressed indicating high-grade bowel obstruction. The stomach is fully distended with fluid and upper normal in diameter. 7 cm of stool in the rectum. Some component of constipation is suspected. Diverticulosis of the left and sigmoid colon without acute diverticulitis. PELVIS: Appendix: No findings to suggest acute appendicitis. Bladder: Unremarkable. No mass. Reproductive: The uterus is absent. ABDOMEN and PELVIS: Intraperitoneal space: See above. Bones/joints: [id number] multilevel degenerative changes throughout the spine. No acute fracture or subluxation is seen. Soft tissues: Mild diffuse anasarca over the torso. Vasculature: The abdominal aorta is mildly calcified but nondilated. Lymph nodes: Unremarkable. No enlarged lymph nodes. IMPRESSION: Multiple dilated small bowel loops demonstrating gas fluid levels throughout the mid to upper abdomen. This includes small bowel loops within a large bilobed right anterior abdominal and pelvic wall hernia measuring at least 19 cm. There is associated edema and a small amount of free fluid in the hernia. The small bowel immediately distal to the hernia is completely decompressed indicating high-grade bowel obstruction. This is similar in configuration to previous. Electronically signed by: Eliu Morillo MD 05/17/25 00:57 AM Diagnostic Findings EKG as per my interpretation :Rate 65, A-fib, LAD, LSB, T wave flattening septal leads, low voltage
[2025-05-17] MEDS ORDERED: PROMETHAZINE 12.5 MG/50.5 ML BAG IV PRN (01:29)
[2025-05-17] MEDS ORDERED: ACETAMINOPHEN 1,000 MG/100 ML VIAL IV PRN (01:29)
[2025-05-17] MEDS: LACTATED RINGER'S 1,000 ML IV ONE (01:35)
[2025-05-17] MEDS: D5W AND 1/2NSS 1,000 ML IV SCH (01:35)
[2025-05-17 01:47] LABS: Magnesium 2.2 mg/dl (1.7-2.4)
--- NOTE | 2025-05-17 01:59 | Surgery Consultation ---
Date of Consultation May 17, 2025 Assessment & Plan (1) Ventral hernia: The patient has been admitted on the hospitalist service. From a surgical perspective we recommend the following: At the present time the patient is nontoxic-appearing. She only has a slight leukocytosis but she is normotensive without tachycardia or fever and is not exhibiting great deal of pain at this time. As the patient was treated successfully in a conservative manner during her most recent hospitalization here I feel additional attempts at this could be tried at this time. I did discuss with the patient that if she were to decompensate and would be in need of surgical intervention she will need to be transferred to a tertiary care center/hernia specialist N.p.o. status should be implemented An NG tube has been placed and this should be maintained to low intermittent suction She should be hydrated IV fluids Serial labs to be followed Consideration given to advancing the patient's diet beginning with clear liquids if she begins passing flatus or has return of bowel function Additional recommendations will be forthcoming based on her clinical course as it unfolds Supervising Physician Co-Signing Physician Notes Patient seen and examined, labs and imaging reviewed, agree with above. 70-year-old superobese female with known complex abdominal wall hernia presented with abdominal pain and nausea. She was admitted a few months ago with similar symptoms and found to have a small bowel obstruction that resolved without intervention. She is feeling better than on presentation. NG tube had minimal output. Her abdomen is soft, minimally tender to palpation, difficult to examine due to body habitus. Unable to clearly palpate hernia or defect. Labs unremarkable. CT scan personally reviewed and interpreted and agree with the assessment of a large complex abdominal wall hernia containing bowel. There may be a transition point and mild dilation of the bowel, but this is significantly better than her scan from a few months ago. Continue with nonoperative management, continue NG tube until return of bowel function. Due to her complex hernia, body habitus, multiple comorbidities, if she needed surgery she may benefit from evaluation at a tertiary care center. Dr. Romero covering over the weekend. History of Present Illness Reason for Consultation: Small bowel obstruction Abdominal wall hernia History of Present Illness This is a 70-year-old female who is known to [facility] patient of general surgery. The patient has a large abdominal wall hernia and has been hospitalized at [facility] in the past for this issue. Patient's most recent hospitalization for this problem was in December of this year. During that time patient was noted to have a small bowel obstruction secondary to her hernia and it was treated successfully in a conservative manner without surgical intervention. Should be noted that the patient is felt to have loss of domain and it is felt that she would require transfer to a tertiary care center/hernia specialist if she would decompensate in need of surgery. The patient presented to the hospital today as she noted that she was having some generalized abdominal pain over the past 2 to 3 days. She said that the pain radiated to her back somewhat and is located in her lower abdomen without additional modifying factors. She has not had any episodes of nausea or vomiting. She notes her most recent bowel movement was today but since that time she has not been passing any flatus. The patient notes that she has a extensive past surgical historythat she has had ovarian cancer and has had a total abdominal hysterectomy as well as an omentectomy and an appendectomy. Patient further adds that she has seen a hernia specialist at [place] but the name of Bob Parker and she has been having ongoing discussion with the surgeon about potential repair. Since arrival to the hospital at [facility] today she has had labs and imaging which I independent reviewed. Chest x-ray showed no focal consolidations consistent with pneumonia. A CT scan of the abdomen pelvis showed multiple dilated loops of small bowel in the mid to upper abdomen as well as an abdominal pelvic wall hernia resulting in a high-grade small bowel obstruction. Labs included CBC were white blood cell count was elevated 13.0. Hemoglobin and hematocrit 11.1 and 34.5. Platelet count was normal. Coagulation studies showed an INR of 1.2. Chemistry profile showed sodium and potassium in the creatinine were normal. Her BUN had a slight elevation of 30. She did have an elevated alkaline phosphatase at 141 but the remainder of her LFTs were normal as was her lipase. Since arrival to the emergency department an NG tube has been placed. At the time of my interview the patient was resting comfortably in bed and she was in no distress. Allergies Allergy/AdvReac Type Severity Reaction Status Date / Time nickel Allergy Mild Redness of Verified 05/17/25 01:48 Skin GIN Inhibitors Allergy Unknown Unknown Verified 05/17/25 01:48 cat dander Allergy Unknown Unknown Verified 05/17/25 01:48 cockroach Allergy Unknown Unknown Verified 05/17/25 01:48 house dust Allergy Unknown Unknown Verified 05/17/25 01:48 pioglitazone Allergy Unknown Unknown Verified 05/17/25 01:48 tree and shrub pollen Allergy Unknown Unknown Verified 05/17/25 01:48 empagliflozin AdvReac Intermediate CAUSED Verified 05/17/25 01:48 [From Jardiance] UTI'S codeine AdvReac Mild Nausea Verified 05/17/25 01:48 hydrocodone AdvReac Mild Nausea Verified 05/17/25 01:48 meperidine AdvReac Mild Nausea Verified 05/17/25 01:48 morphine AdvReac Mild Nausea Verified 05/17/25 01:48 Home Medications Medication Instructions Recorded Confirmed Type allopurinol 100 mg tablet 100 mg PO BID 09/28/18 05/17/25 History atorvastatin 40 mg tablet 40 mg PO HS 09/28/18 05/17/25 History gemfibrozil 600 mg tablet 600 mg PO BID 09/28/18 05/17/25 History levothyroxine 112 mcg tablet 112 mcg PO DAILYBB 09/28/18 05/17/25 History mometasone 50 mcg/actuation nasal 1 - 2 spray intranasal QAM 09/28/18 05/17/25 History spray diclofenac sodium 1 % topical gel 2 g topical QID PRN Pain 12/09/18 05/17/25 History dabigatran etexilate 150 mg 150 mg PO BID #14 caps 04/17/22 05/17/25 Rx capsule (Pradaxa) pen needle, diabetic 31 gauge x #500 ea 11/07/23 12/07/24 Rx 5/16" (Clickfine Pen Needle) famotidine 20 mg tablet (Pepcid) 20 mg PO BID 11/10/23 05/17/25 History diltiazem HCl 360 mg capsule,24 360 mg PO DAILY 03/23/24 05/17/25 History hr,extended release blood-glucose sensor (Dexcom G6 12/07/24 03/31/25 History Sensor device) insulin lispro 100 unit/mL 15 unit subcut TIDM 12/07/24 05/17/25 History subcutaneous pen (Humalog KwikPen (U-100) Insulin) ipratropium 20 mcg-albuterol 100 1 puff inhalation QID 12/17/24 05/17/25 History mcg/actuation mist for inhalation (Combivent Respimat) gabapentin 600 mg tablet 600 mg PO TID #270 tabs 01/10/25 05/17/25 Rx coenzyme Q10 200 mg capsule 200 mg PO DAILY 03/31/25 05/17/25 History metoprolol tartrate 25 mg tablet 37.5 mg (1.5 x 25 mg) PO BID #90 04/02/25 05/17/25 Rx tabs albuterol sulfate 2.5 mg/3 mL 2.5 mg inhalation Q4H PRN Wheezing 05/01/25 05/17/25 History (0.083 %) solution for nebulization albuterol sulfate 90 mcg/actuation 2 puff inhalation Q4H PRN Wheezing 05/01/25 05/17/25 History aerosol inhaler cholecalciferol (vitamin D3) 25 25 mcg PO DAILY 05/01/25 05/17/25 History mcg (1,000 unit) capsule (Vitamin D3) furosemide 20 mg tablet (Lasix) 20 mg PO QAM 05/01/25 05/17/25 History insulin glargine 100 unit/mL (3 40 unit subcut BID 05/01/25 05/17/25 History mL) subcutaneous pen (Lantus Solostar U-100 Insulin) magnesium glycinate 120 mg (as 240 mg PO QAM 05/01/25 05/17/25 History glycinate) capsule L.acidop,casei,lactis,rham-B.lact,sarah 1 cap PO DAILY 7 days #7 caps 05/12/25 05/17/25 Rx 625 mg (10 billion cell) capsule (Advanced Probiotic) oxycodone 5 mg tablet 5 mg PO Q8H PRN pain (scale score 05/12/25 05/17/25 Rx 7-10) #15 tabs cephalexin 500 mg capsule 500 mg PO Q6H 05/17/25 05/17/25 History tirzepatide 7.5 mg/0.5 mL 7.5 mg subcut WK 05/17/25 05/17/25 History subcutaneous pen injector (Mounjaro) Patient History Medical History Elevated troponin Loss of protective sensation of skin of foot Rectal bleed Lower gastrointestinal hemorrhage Nausea and vomiting after administration of anesthetic agent Hx of ovarian cancer 2019- surgical intervention, no chemo or [facility] Liver lesion Liver cell injury Ovarian cancer on right 28 lb R adnexal mass removed 07/22/19 Edema Closed head injury Syncope Leg wound, right Atrial fibrillation with rapid ventricular response (07/14/14) - follows w/ dr norris last visit 1 yr ago- takes pradaxa Surgical History S/P appendectomy during hysterectomy S/P hysterectomy Status post colonoscopy with polypectomy History of cholecystectomy History of hernia repair during hysterectomy Family History Father Myocardial infarction Coronary heart disease Diabetes Mother Complication of surgery Diabetes Sister Diabetes Sister Diabetes Brother Diabetes "Pre-diabetic" Sister Diabetes Sister Gestational diabetes Grandmother (Paternal) Diabetes Grandmother (Maternal) Diabetes Social History Smoking Status: Never smoker Tobacco Type: Cigarettes Cigarettes Per Day: 1-2; Second Hand Exposure: No; Do You Dip or Chew Tobacco: No; Tobacco Cessation Education Requested by Patient: No Hx Alcohol Use: No Hx Substance Use: No Preferred Language: Kinyarwanda Communication Ability: Effective Process Coordinator Required: No Beliefs That Will Affect Care: None marital status: / Current Living Situation: Alone Current Living Situation Comment: Lives with Sister in Law and . Other Information That Helps Us Care for You: No Feels Safe at Home: Yes Safety Concerns: Feels Safe At This Time Assistive Devices: Walker Review of Systems Review of Systems: All systems reviewed & are unremarkable except as noted in HPI & below Physical Exam Constitutional: + obese; no acute distress Eyes: no conjunctival abnormality ENMT: Ears: no hearing impairment Neck: trachea midline Respiratory: normal respiratory effort; no respiratory distress and no labored breathing Cardiovascular: Rate/Rhythm: regular rate and regular rhythm Gastrointestinal (Abdomen): Patient's abdomen is rotund. The patient had a very large pannus. She had some generalized but minimal pain with palpation of her lower abdomen. There is no rebound tenderness, guarding, or signs of peritonitis Musculoskeletal: No calf tenderness Skin: no rashes Neurologic: moves all extremities Psychiatric: A+Ox3, euthymic affect Results & Data Vital Signs (Past 12 Hours) Vital Signs Temp Pulse Pulse Resp BP BP Pulse Ox 05/17/25 00:00 66 18 100/82 92 05/16/25 22:00 56 L 18 122/68 94 05/16/25 21:30 58 L 94 H 127/71 05/16/25 21:11 05/16/25 20:50 37.2 C 63 20 93/77 L 97 O2 Del Method 05/17/25 00:00 Room Air 05/16/25 22:00 05/16/25 21:30 05/16/25 21:11 Room Air 05/16/25 20:50 Room Air PG Care Time/CCT Total # of Minutes Spent Total Time Spent with Patient: Total time spent is greater than 50% in coordination of care (as documented) at patient's floor/unit and/or counseling patient: Coding Level of Care Code 72972 INT INP/OBS CARE 3/75MIN Diagnoses Ventral hernia K43.9
--- NOTE | 2025-05-17 02:20 | XRay Report ---
EXAM: XR KUB/Abdomen 1 view CLINICAL HISTORY: NG placement TECHNIQUE: X-ray images of the chest were obtained in anteroposterior (AP) projection. COMPARISON: Compared to the last study dated 03/31/2025. FINDINGS: Pulmonary Parenchyma: Limited view with images of the lower chest only available. Scanned parts of the lung show no evidence of consolidation, collapse, or focal opacities. No pulmonary nodules identified. No evidence of pleural effusion or pleural thickening. Heart and Mediastinum: Cardiomegaly is noted. Bony Thorax: Bony thorax appears intact without fractures or deformities. Soft Tissues: Soft tissues overlying the chest wall are unremarkable. Evidence of an NG tube with its tip seen below the left hemidiaphragm in the appropriate location. IMPRESSION: 1. Evidence of an NG tube with its tip seen below the left hemidiaphragm in the appropriate location. 2. Cardiomegaly is noted. 3. No other interval changes in the limited view. Electronically signed by Tucker Navarro 05-17-2025 02:19 AM
[2025-05-17] MEDS ORDERED: GLUCOSE 40% GEL 15 GM TUBE PO PRN (03:30)
[2025-05-17] MEDS ORDERED: GLUCAGON FOR INJ 1 MG VIAL SQ PRN (03:30)
[2025-05-17] MEDS ORDERED: CARBOHYDRATES FOR HYPOGLYCEMIA PO PRN (03:30)
[2025-05-17] MEDS ORDERED: GLUCOSE 10 TAB/TUBE PO PRN (03:30)
[2025-05-17] MEDS ORDERED: DEXTROSE 50% 50 ML SYRINGE IV PRN (03:30)
[2025-05-17] MEDS: INSULIN ASPART PER UNIT CHARGE SC SCH (03:34)
[2025-05-17] MEDS: LEVOTHYROXINE SODIUM 112 MCG TABLET PO SCH (06:06)
[2025-05-17] MEDS: METOPROLOL TARTRATE 1 MG/ML VIAL IV SCH (06:06)
[2025-05-17 07:10] LABS: Hematocrit (blood only) 30.4 % (37.0-47.0); Hemoglobin 9.7 g/dl (12.0-16.0); Immature Granulocytes # (auto) 0.03 K/uL (0.01-0.20); Immature Granulocytes % (auto) 0.3 %; Mean Corpuscular Hemoglobin 30.4 pg (25.0-34.0); Mean Corpuscular Volume 95.3 fL (80.0-100.0); Platelet Count 311 K/uL (130-400); RDW Standard Deviation 53.6 fL (36.4-46.3); Red Blood Count 3.19 M/uL (4.20-5.40); White Blood Count 10.18 K/ul (4.8-10.8)
[2025-05-17 07:26] LABS: Anion Gap 6.0 (3-11); Blood Urea Nitrogen 25.0 mg/dl (6-23); Calcium 8.6 mg/dl (8.6-10.3); Carbon Dioxide 30.0 mmol/L (21-32); Chloride 107.0 mmol/L (98-107); Creatinine Clr Calc Pharmacy 103.3 ml/min; Glucose 104.0 mg/dl (70-99(Fasting)); Potassium 3.8 mmol/L (3.5-5.1); Sodium 143.0 mmol/L (136-145)
[2025-05-17 07:33] LABS: Partial Thromboplastin Time 49 Seconds (21-31)
[2025-05-17] MEDS ORDERED: IPRATROPIUM BROMIDE/ALBUTEROL respimat INH INH SCH (09:00)
[2025-05-17] MEDS: Albuterol HFA 8 GM Inhaler (Combivent Respimat P&T Subs) INH SCH (09:31)
[2025-05-17] MEDS: FLUTICASONE PROPIONATE NA SPR 16 GM BTL SCH (09:32)
[2025-05-17] MEDS: Ipratropium HFA Inhaler (Combivent Respimat P&T Subs) INH SCH (09:36)
[2025-05-17] MEDS: GABAPENTIN 600 MG TAB PO SCH (09:37)
[2025-05-17] MEDS: ADVANCED PROBIOTIC 625 MG CAPSULE PO SCH (09:38)
[2025-05-17] MEDS: LANTUS PER UNIT CHARGE SQ SCH (09:49)
[2025-05-17] MEDS: FAMOTIDINE 20MG IV PUSH 20 MG/5 ML SYR IV SCH (09:49)
[2025-05-17] MEDS ORDERED: METOPROLOL TARTRATE 1 MG/ML VIAL IV PRN (10:19)
--- NOTE | 2025-05-17 10:21 | Hospitalist Progress Note ---
Date of Service May 17, 2025 Assessment & Plan (1) SBO (small bowel obstruction): Plan: Recurrent SBO History of ventral hernia Patient presents with nausea and abdominal distention; history of ventral hernia. CT abdomen pelvis on admission suggest high-grade small bowel obstruction Leukocytosis present on admission; improved Continue bowel rest with NG tube; await return of bowel function. Continue pain control Surgery on board; appreciate recommendation Continue IV heparin given epistaxis and potential need for surgery; hold Pradaxa #Chronic Atrial Fibrillation -hold pradaxa,cardizem; on iv heparin -iv metoprolol as needed -replenish electrolytes #Class III Obesity -hold home mounjaro #Hypothyroidism -hold levothyroxine #DM Type 2 -continue home lantus, -SSI -pharmacy consult given high doses of insulin #COPD -continue home inhalers #Gout -chold allopurinol #NAVI -on Bipap at home -on at home, ordered for here DVT prophylaxis-heparin full code Time spent evaluating patient, direct bedside care, chart review, placing orders, interpretation of diagnostic studies, discussion with consultants, patient, and family members, as well as other required patient management lo [email or web address] is 50 minutes Please note the above document was generated using voice recognition software. It may contain grammatical, syntax or spelling errors. Any formal questions or concerns about the content, text or information contained within the body of this dictation should be directly addressed to the provider for clarification Admission and Anticipated Discharge Date Admission Date: May 17, 2025 Subjective Patient seen and examined at bedside. NG tube in place; not in distress. Reports abdominal discomfort has improved Review of Systems Review of Systems: All systems reviewed & are unremarkable except as noted in Subjective Physical Exam Physical Exam: Constitutional: WD/WN, vitals as above, NAD, sitting up in bed, pleasant, conversing easily Nares; NG tube in place Respiratory: normal respiratory effort, lungs clear to auscultation, no wheeze, rales, rhonchi. Normal insp/exp effort, no accessory muscle use Cardiovascular: RRR, no murmur, no edema Vessels: no JVD or carotid bruit Chest: normal inspection of chest Abdomen: Distended, nontender. Musculoskeletal: no cyanosis or clubbing, extremities motor strength 5/5 Skin: no rashes, warm and dry normal turgor Neurologic: PERRL, EOMI, accommodation nl, no face palsy, no dysarthria CN's II- XI intact bilaterally and moves all extremities Psychiatric: A+Ox3, euthymic affect Results & Data Results & Data Vital Signs (Past 12 Hours) Vital Signs Temp Pulse Pulse Resp BP BP Pulse Ox 05/17/25 08:44 36.5 C 80 18 121/69 96 05/17/25 06:26 62 120/71 05/17/25 06:06 68 150/84 H 05/17/25 04:21 65 05/17/25 03:57 05/17/25 03:57 36.7 C 69 18 147/65 H 94 05/17/25 03:06 67 17 95 05/17/25 03:00 151/82 H 05/17/25 02:51 64 9 L 96 05/17/25 02:33 66 20 93 05/17/25 02:30 164/61 H 05/17/25 02:30 164/61 H 05/17/25 02:30 164/61 H 05/17/25 02:00 70 18 160/76 H 92 05/17/25 00:00 66 18 100/82 92 O2 Del Method O2 Flow Rate 05/17/25 08:44 Nasal Cannula 2 05/17/25 06:26 05/17/25 06:06 05/17/25 04:21 05/17/25 03:57 Nasal Cannula 2 05/17/25 03:57 Nasal Cannula 2 05/17/25 03:06 05/17/25 03:00 05/17/25 02:51 05/17/25 02:33 05/17/25 02:30 05/17/25 02:30 05/17/25 02:30 05/17/25 02:00 Room Air 05/17/25 00:00 Room Air
--- NOTE | 2025-05-17 11:22 | Electrocardiogram Report ---
Test Reason : Blood Pressure : */* mmHG Vent. Rate : 65 BPM Atrial Rate : * BPM P-R Int : * ms QRS Dur : 100 ms QT Int : 424 ms P-R-T Axes : * -61 29 degrees QTcB Int : 440 ms Atrial fibrillation Low voltage QRS Left anterior fascicular block Nonspecific T wave abnormality Abnormal ECG When compared with ECG of 31-Mar-2025 04:06, Vent. rate has decreased by 48 bpm Confirmed by Lopez Lombardi ([id number]) on 05/17/2025 11:21:52 AM Referred By: REFERRED SELF Confirmed By: Lopez Lombardi
[2025-05-17] MEDS ORDERED: IPRATROPIUM BROMIDE HFA INHALER INH PRN (11:46)
[2025-05-17] MEDS ORDERED: ALBUTEROL HFA 8 GM INHALER INH PRN (11:46)
[2025-05-17] MEDS: ACETAMINOPHEN 500 MG TAB PO STA (15:56)
[2025-05-17] MEDS: cefTRIAXone SODIUM 2,000 MG/50 ML BAG IV SCH (16:18)
[2025-05-17] MEDS: ATORVASTATIN 40 MG TAB PO SCH (20:42)
[2025-05-17] MEDS: DICLOFENAC SOD 1% GEL 100 GM TUBE EXT PRN (21:06)
[2025-05-17 21:16] LABS: Appearance Urine Clear (Clear); Glucose Urine UA Negative (Negative)
--- NOTE | 2025-05-18 10:20 | Surgery Progress Note ---
Date of Service May 18, 2025 Assessment & Plan (1) SBO (small bowel obstruction): Plan: Clinically improved Will recheck KUB tomorrow Keep NG tube for now. No emergent indication for surgical intervention currently (2) Ventral hernia: (3) Chronic atrial fibrillation: Admission and Anticipated Discharge Date Admission Date: May 17, 2025 Subjective Patient seen. Feeling better than yesterday. No more abdominal pain. No nausea currently Physical Exam Constitutional: WD/WN, vitals as above no acute distress and not ill appearing Eyes: PERRL, conjunctivae normal, anicteric sclerae EOM intact bilaterally ENMT: external ear and nose normal, oropharynx normal Ears: no hearing impairment Neck: trachea midline, no thyromegaly Respiratory: normal respiratory effort; no respiratory distress and does not use accessory muscles Cardiovascular: Rate/Rhythm: regular rate and regular rhythm Gastrointestinal (Abdomen): Soft. Nontender. Difficult exam due to body habitus. Skin: no rashes, warm and dry Psychiatric: Orientation: alert, oriented x 3 and cooperative Results & Data Vital Signs (Past 12 Hours) Vital Signs Temp Pulse Pulse Resp BP BP Pulse Ox 05/18/25 08:21 36.8 C 78 20 138/78 91 05/18/25 02:48 36.8 C 86 20 158/64 H 94 05/17/25 23:22 78 05/17/25 23:05 05/17/25 22:26 36.9 C 87 18 152/75 H 93 O2 Del Method O2 Flow Rate 05/18/25 08:21 Room Air 05/18/25 02:48 Room Air 05/17/25 23:22 05/17/25 23:05 Nasal Cannula 2 05/17/25 22:26 Room Air PG Care Time/CCT Total # of Minutes Spent Total Time Spent with Patient: Total time spent is greater than 50% in coordination of care (as documented) at patient's floor/unit and/or counseling patient: Coding Level of Care Code 81292 SUB INP/OBS CARE 10/27MIN Diagnoses SBO (small bowel obstruction) K56.609 Ventral hernia K43.9 Chronic atrial fibrillation I48.20
--- NOTE | 2025-05-18 10:51 | Hospitalist Progress Note ---
Date of Service May 18, 2025 Assessment & Plan (1) SBO (small bowel obstruction): Plan: Recurrent SBO History of ventral hernia Patient presents with nausea and abdominal distention; history of ventral hernia. CT abdomen pelvis on admission suggest high-grade small bowel obstruction Leukocytosis present on admission; improved Continue bowel rest with NG tube; await return of bowel function.KUB in am Continue pain control Surgery on board; appreciate recommendation anticoagulation on hold due to epixastis and need for surgery #Chronic Atrial Fibrillation -hold pradaxa,cardizem; -iv metoprolol as needed -replenish electrolytes #Class III Obesity -hold home mounjaro-discontinue at discharge given multiple recurrence of SBO #Hypothyroidism -hold levothyroxine #DM Type 2 -continue home lantus, -SSI -pharmacy consult given high doses of insulin #COPD -continue home inhalers #Gout -hold allopurinol #NAVI -on Bipap at home -on at home, ordered for here DVT prophylaxis-heparin full code Time spent evaluating patient, direct bedside care, chart review, placing orders, interpretation of diagnostic studies, discussion with consultants, patient, and family members, as well as other required patient management activities is 50 minutes Please note the above document was generated using voice recognition software. It may contain grammatical, syntax or spelling errors. Any formal questions or concerns about the content, text or information contained within the body of this dictation should be directly addressed to the provider for clarification Admission and Anticipated Discharge Date Admission Date: May 17, 2025 Subjective Patient seen and examined at bedside. She continues to have significant output from the NG tube. Reports intermittent abdominal pain/discomfort. No significant events overnight Review of Systems Review of Systems: All systems reviewed & are unremarkable except as noted in Subjective Physical Exam Physical Exam: Constitutional: WD/WN, vitals as above, NAD, sitting up in bed, pleasant, conversing easily Nares; NG tube in place Respiratory: normal respiratory effort, lungs clear to auscultation, no wheeze, rales, rhonchi. Normal insp/exp effort, no accessory muscle use Cardiovascular: RRR, no murmur, no edema Vessels: no JVD or carotid bruit Chest: normal inspection of chest Abdomen: Distended, nontender. Musculoskeletal: no cyanosis or clubbing, extremities motor strength 5/5 Skin: no rashes, warm and dry normal turgor Neurologic: PERRL, EOMI, accommodation nl, no face palsy, no dysarthria CN's II- XI intact bilaterally and moves all extremities Psychiatric: A+Ox3, euthymic affect Results & Data Results & Data Vital Signs (Past 12 Hours) Vital Signs Temp Pulse Pulse Resp BP BP Pulse Ox 05/18/25 08:21 36.8 C 78 20 138/78 91 05/18/25 02:48 36.8 C 86 20 158/64 H 94 05/17/25 23:22 78 05/17/25 23:05 O2 Del Method O2 Flow Rate 05/18/25 08:21 Room Air 05/18/25 02:48 Room Air 05/17/25 23:22 05/17/25 23:05 Nasal Cannula 2
[2025-05-18] MEDS: SODIUM CHLORIDE 0.9% 500 ML IV SCH (11:55)
[2025-05-18] MEDS: HEPARIN SOD 5,000 UNIT/0.5 ML VIAL SQ SCH (13:46)
--- NOTE | 2025-05-19 07:54 | Hospitalist Progress Note ---
Date of Service May 19, 2025 Assessment & Plan (1) SBO (small bowel obstruction): Plan: Recurrent SBO History of ventral hernia Patient presents with nausea and abdominal distention; history of ventral hernia. CT abdomen pelvis on admission suggest high-grade small bowel obstruction Leukocytosis present on admission; improved KUB on 05/19 shows constipation; no SBO NG tube clamped; to be removed if residual is less than 150ml in 4 hours. plan to start sips of water if tolerated. Continue pain control Started on heparin drip for A-fib on 05/19; continue to hold Pradaxa #Chronic Atrial Fibrillation -hold pradaxa,cardizem; -iv metoprolol as needed -replenish electrolytes - on iv heparin #Class III Obesity -hold home mounjaro-discontinue at discharge given multiple recurrence of SBO #Hypothyroidism -hold levothyroxine #DM Type 2 -continue home lantus, -SSI -pharmacy consult given high doses of insulin #COPD -continue home inhalers #Gout -hold allopurinol #NAVI -on Bipap at home -on at home, ordered for here DVT prophylaxis-heparin full code Time spent evaluating patient, direct bedside care, chart review, placing orders, interpretation of diagnostic studies, discussion with consultants, patient, and family members, as well as other required patient management activities is 50 minutes Please note the above document was generated using voice recognition software. It may contain grammatical, syntax or spelling errors. Any formal questions or concerns about the content, text or information contained within the body of this dictation should be directly addressed to the provider for clarification Admission and Anticipated Discharge Date Admission Date: May 17, 2025 Subjective Patient seen and examined at bedside. She reports that she is feeling better compared to previous day. Her NG tube has been clamped. KUB in a.m. shows constipation; no small bowel obstruction. Review of Systems Review of Systems: All systems reviewed & are unremarkable except as noted in Subjective Physical Exam Physical Exam: Constitutional: WD/WN, vitals as above, NAD, sitting up in bed, pleasant, conversing easily Nares; NG tube in place Respiratory: normal respiratory effort, lungs clear to auscultation, no wheeze, rales, rhonchi. Normal insp/exp effort, no accessory muscle use Cardiovascular: RRR, no murmur, no edema Vessels: no JVD or carotid bruit Chest: normal inspection of chest Abdomen: Distended, nontender. Musculoskeletal: no cyanosis or clubbing, extremities motor strength 5/5 Skin: no rashes, warm and dry normal turgor Neurologic: PERRL, EOMI, accommodation nl, no face palsy, no dysarthria CN's II- XI intact bilaterally and moves all extremities Psychiatric: A+Ox3, euthymic affect Results & Data Results & Data Vital Signs (Past 12 Hours) Vital Signs Temp Pulse Pulse Resp BP Pulse Ox O2 Del Method 05/19/25 05:28 83 05/19/25 02:37 36.7 C 87 18 148/80 H 91 Room Air 05/19/25 00:05 Nasal Cannula 05/18/25 22:31 37.1 C 86 18 143/72 H 92 Room Air O2 Flow Rate 05/19/25 05:28 05/19/25 02:37 05/19/25 00:05 2 05/18/25 22:31
[2025-05-19 08:02] LABS: Hematocrit (blood only) 33.2 % (37.0-47.0); Hemoglobin 10.6 g/dl (12.0-16.0); Immature Granulocytes # (auto) 0.02 K/uL (0.01-0.20); Immature Granulocytes % (auto) 0.2 %; Mean Corpuscular Hemoglobin 30.6 pg (25.0-34.0); Mean Corpuscular Volume 96.0 fL (80.0-100.0); Platelet Count 306 K/uL (130-400); RDW Standard Deviation 53.2 fL (36.4-46.3); Red Blood Count 3.46 M/uL (4.20-5.40); White Blood Count 9.20 K/ul (4.8-10.8)
[2025-05-19 08:28] LABS: Anion Gap 8.0 (3-11); Blood Urea Nitrogen 11.0 mg/dl (6-23); Calcium 8.8 mg/dl (8.6-10.3); Carbon Dioxide 28.0 mmol/L (21-32); Chloride 107.0 mmol/L (98-107); Creatinine Clr Calc Pharmacy 133.0 ml/min; Glucose 82.0 mg/dl (70-99(Fasting)); Potassium 3.8 mmol/L (3.5-5.1); Sodium 143.0 mmol/L (136-145)
[2025-05-19] MEDS: Heparin IV Adult Wt-Based Standard *NO* INITIAL Bolus Protocol IV STA (08:34)
[2025-05-19] MEDS: HEPARIN 25000 UNIT/500 ML D5W 25,000 UNITS/500 ML BAG IV SCH (08:44)
--- NOTE | 2025-05-19 08:45 | Surgery Progress Note ---
Date of Service May 19, 2025 Assessment & Plan (1) Abdominal wall hernia: Plan: Continue ngt , npo KUB ordered this AM not taken yet abd soft , non distended , TTP , +significant pannus OOB to BR and ambulate as able will follow As above. Keep NG tube for now. KUB pending. No emergent or urgent indication for operative intervention (2) SBO (small bowel obstruction): Admission and Anticipated Discharge Date Admission Date: May 17, 2025 Subjective pt reports feeling better than yesterday Denies n/v, flatus or bm +abd discomfort Review of Systems Gastrointestinal: + abdominal pain; no nausea and no vomit ing Physical Exam Gastrointestinal (Abdomen): Percussion/Palpation: + abdomen tender and abdomen soft; no guarding Results & Data Vital Signs (Past 12 Hours) Vital Signs Temp Pulse Pulse Resp BP BP Pulse Ox 05/19/25 08:28 98.1 F 82 20 141/83 H 94 05/19/25 05:28 83 05/19/25 02:37 98.1 F 87 18 148/80 H 91 05/19/25 00:05 05/18/25 22:31 98.8 F 86 18 143/72 H 92 O2 Del Method O2 Flow Rate 05/19/25 08:28 Nasal Cannula 4 05/19/25 05:28 05/19/25 02:37 Room Air 05/19/25 00:05 Nasal Cannula 2 05/18/25 22:31 Room Air
[2025-05-19 09:13] LABS: INR 1.1 (0.9-1.1); Partial Thromboplastin Time 33 Seconds (21-31); Prothrombin Time 12.1 Seconds (9.0-12.0)
--- NOTE | 2025-05-19 09:21 | XRay Report ---
3 views of the abdomen were obtained Findings: There is moderate severity constipation. There is no sign of bowel obstruction. There is a nasogastric tube with its tip within the stomach. No renal or ureteral calculi are seen. Surgical clips are seen suggestive of prior cholecystectomy. There is lumbar scoliosis and degenerative disc disease Impression: Constipation Electronically signed by Lenard Headley 05-19-2025 09:21 AM
[2025-05-19 15:58] LABS: ANTI-Xa, UFH(UnfractionatedHep 0.13 IU/ml (0.3-0.7)
[2025-05-19] MEDS: HEPARIN SOD (PORCINE) 1000 UNIT/ML IV ONE (16:18)
[2025-05-19 23:45] LABS: ANTI-Xa, UFH(UnfractionatedHep 0.23 IU/ml (0.3-0.7)
[2025-05-20 05:55] LABS: Hematocrit (blood only) 34.5 % (37.0-47.0); Hemoglobin 10.9 g/dl (12.0-16.0); Immature Granulocytes # (auto) 0.05 K/uL (0.01-0.20); Immature Granulocytes % (auto) 0.5 %; Mean Corpuscular Hemoglobin 30.3 pg (25.0-34.0); Mean Corpuscular Volume 95.8 fL (80.0-100.0); Platelet Count 290 K/uL (130-400); RDW Standard Deviation 52.8 fL (36.4-46.3); Red Blood Count 3.60 M/uL (4.20-5.40); White Blood Count 10.45 K/ul (4.8-10.8)
[2025-05-20 06:14] LABS: Anion Gap 7.0 (3-11); Blood Urea Nitrogen 9.0 mg/dl (6-23); Calcium 8.8 mg/dl (8.6-10.3); Carbon Dioxide 27.0 mmol/L (21-32); Chloride 106.0 mmol/L (98-107); Creatinine Clr Calc Pharmacy 137.8 ml/min; Glucose 95.0 mg/dl (70-99(Fasting)); Potassium 4.0 mmol/L (3.5-5.1); Sodium 140.0 mmol/L (136-145)
[2025-05-20 06:24] LABS: ANTI-Xa, UFH(UnfractionatedHep 0.23 IU/ml (0.3-0.7)
--- NOTE | 2025-05-20 10:04 | Surgery Progress Note ---
Date of Service May 20, 2025 Assessment & Plan (1) SBO (small bowel obstruction): (2) Obesity, morbid, BMI 50 or higher: Plan: 70 yo female, morbidly obese with large ventral hernia containing small bowel with SBO on presentation. KUB on 05/19/25 showing nonobstructive bowel gas pattern but constipation. Tolerating clear liquids, small bowel movement after suppository. No acute surgical intervention required at this time. Would need advanced hernia specialist for ventral hernia repair given BMI and large hernia. (follows with hernia surgeon at [place]) Continue medical management. Discussed with Dr. Clay who agrees with above. Admission and Anticipated Discharge Date Admission Date: May 17, 2025 Subjective feeling okay this morning no abdominal pain no flatus two small bowel movements after suppository last night tolerating clear liquids no n,v Physical Exam Constitutional: WD/WN, vitals as above + morbidly obese, cooperative and comfortable; no acute distress and not ill appearing Respiratory: normal respiratory effort; no respiratory distress Gastrointestinal (Abdomen): Inspection/Auscultation: abdomen normal to inspection and + abdominal surgical scar; abdomen not distended Percussion/Palpation: abdomen soft; abdomen nontender, no guarding and abdomen not rigid Skin: no rashes, warm and dry Psychiatric: Orientation: alert and oriented x 3 Results & Data Vital Signs (Past 12 Hours) Vital Signs Temp Pulse Pulse Resp BP Pulse Ox O2 Del Method 05/20/25 08:08 36.7 C 80 20 137/74 93 Nasal Cannula 05/20/25 03:59 36.7 C 74 20 159/78 H 95 Nasal Cannula 05/19/25 23:43 Nasal Cannula 05/19/25 23:41 86 05/19/25 23:34 37.0 C 84 20 131/72 92 Room Air O2 Flow Rate 05/20/25 08:08 2 05/20/25 03:59 2 05/19/25 23:43 2 05/19/25 23:41 05/19/25 23:34 Laboratory Results 05/20/25 05/20/25 05/20/25 Range/Units 07:51 06:08 05:28 WBC 10.45 (4.8-10.8) K/ul RBC 3.60 L (4.20-5.40) M/uL Hgb 10.9 L (12.0-16.0) g/dl Hct 34.5 L (37.0-47.0) % MCV 95.8 (80.0-100.0) fL MCH 30.3 (25.0-34.0) pg MCHC 31.6 L (32.0-36.0) g/dL RDW Std Deviation 52.8 H (36.4-46.3) fL RDW Coeff of Faraz 15.1 H (11.5-14.5) % Plt Count 290 (130-400) K/uL MPV 10.6 (9.4-12.4) fL Immature Gran % (Auto) 0.5 % Neut % (Auto) 66.3 % Lymph % (Auto) 22.1 % Evans % (Auto) 7.5 % Eos % (Auto) 2.8 % Baso % (Auto) 0.8 % Neut # (Auto) 6.94 H (1.40-6.50) K/uL Lymph # (Auto) 2.31 (1.20-3.40) K/uL Evans # (Auto) 0.78 H (0.11-0.59) K/uL Eos # (Auto) 0.29 (0.00-0.50) K/uL Baso # (Auto) 0.08 (0.00-0.20) K/uL Immature Gran # (Auto) 0.05 (0.01-0.20) K/uL Heparin Anti-Xa, Unfract 0.23 L (0.3-0.7) IU/ml Sodium 140 (136-145) mmol/L Potassium 4.0 (3.5-5.1) mmol/L Chloride 106 (98-107) mmol/L Carbon Dioxide 27 (21-32) mmol/L Anion Gap 7 (3-11) BUN 9 (6-23) mg/dl Creatinine 0.53 L (0.6-1.2) mg/dl Est Cr Clr Drug Dosing 137.8 ml/min eGFR 99.43 BUN/Creatinine Ratio 17.0 (10-20) Glucose 95 (70-99(Fasting)) mg/dl POC Glucose 104 H 105 H (70-99) mg/dl Calcium 8.8 (8.6-10.3) mg/dl 05/20/25 05/19/25 05/19/25 Range/Units 00:13 22:35 20:14 WBC (4.8-10.8) K/ul RBC (4.20-5.40) M/uL Hgb (12.0-16.0) g/dl Hct (37.0-47.0) % MCV (80.0-100.0) fL MCH (25.0-34.0) pg MCHC (32.0-36.0) g/dL RDW Std Deviation (36.4-46.3) fL RDW Coeff of Faraz (11.5-14.5) % Plt Count (130-400) K/uL MPV (9.4-12.4) fL Immature Gran % (Auto) % Neut % (Auto) % Lymph % (Auto) % [place] % (Auto) % Eos % (Auto) % Baso % (Auto) % Neut # (Auto) (1.40-6.50) K/uL Lymph # (Auto) (1.20-3.40) K/uL Evans # (Auto) (0.11-0.59) K/uL Eos # (Auto) (0.00-0.50) K/uL Baso # (Auto) (0.00-0.20) K/uL Immature Gran # (Auto) (0.01-0.20) K/uL Heparin Anti-Xa, Unfract 0.23 L (0.3-0.7) IU/ml Sodium (136-145) mmol/L Potassium (3.5-5.1) mmol/L Chloride (98-107) mmol/L Carbon Dioxide (21-32) mmol/L Anion Gap (3-11) BUN (6-23) mg/dl Creatinine (0.6-1.2) mg/dl Est Cr Clr Drug Dosing ml/min eGFR BUN/Creatinine Ratio (10-20) Glucose (70-99(Fasting)) mg/dl POC Glucose 91 86 (70-99) mg/dl Calcium (8.6-10.3) mg/dl 05/19/25 05/19/25 05/19/25 Range/Units 17:52 14:44 12:04 WBC (4.8-10.8) K/ul RBC (4.20-5.40) M/uL Hgb (12.0-16.0) g/dl Hct (37.0-47.0) % MCV (80.0-100.0) fL MCH (25.0-34.0) pg MCHC (32.0-36.0) g/dL RDW Std Deviation (36.4-46.3) fL RDW Coeff of Faraz (11.5-14.5) % Plt Count (130-400) K/uL MPV (9.4-12.4) fL Immature Gran % (Auto) % Neut % (Auto) % Lymph % (Auto) % Evans % (Auto) % Eos % (Auto) % Baso % (Auto) % Neut # (Auto) (1.40-6.50) K/uL Lymph # (Auto) (1.20-3.40) K/uL Evans # (Auto) (0.11-0.59) K/uL Eos # (Auto) (0.00-0.50) K/uL Baso # (Auto) (0.00-0.20) K/uL Immature Gran # (Auto) (0.01-0.20) K/uL Heparin Anti-Xa, Unfract 0.13 L (0.3-0.7) IU/ml Sodium (136-145) mmol/L Potassium (3.5-5.1) mmol/L Chloride (98-107) mmol/L Carbon Dioxide (21-32) mmol/L Anion Gap (3-11) BUN (6-23) mg/dl Creatinine (0.6-1.2) mg/dl Est Cr Clr Drug Dosing ml/min eGFR BUN/Creatinine Ratio (10-20) Glucose (70-99(Fasting)) mg/dl POC Glucose 95 90 (70-99) mg/dl Calcium (8.6-10.3) mg/dl
--- NOTE | 2025-05-20 11:49 | Hospitalist Progress Note ---
Date of Service May 20, 2025 Assessment & Plan (1) SBO (small bowel obstruction): Plan: Recurrent SBO History of ventral hernia Patient presents with nausea and abdominal distention; history of ventral hernia. CT abdomen pelvis on admission suggest high-grade small bowel obstruction Leukocytosis present on admission; improved KUB on 05/19 shows constipation; no SBO NG tube removed on 05/19 after successful clamping. 2 bowel movements on 05/19; started on clear liquid diet; advance as tolerated Started on heparin drip for A-fib on 05/19; continue to hold Pradaxa #Chronic Atrial Fibrillation -hold pradaxa for now; plan to resume when patient is closer to discharge. -oral Cardizem and metoprolol restarted -replenish electrolytes - on iv heparin #Class III Obesity -hold home mounjaro-discontinue at discharge given multiple recurrence of SBO #Hypothyroidism -continue on levothyroxine #DM Type 2 -continue home lantus, -SSI -pharmacy consult given high doses of insulin #COPD -continue home inhalers #Gout -on allopurinol-continue #NAVI -on Bipap at home -on at home, ordered for here DVT prophylaxis-heparin full code Time spent evaluating patient, direct bedside care, chart review, placing orders, interpretation of diagnostic studies, discussion with consultants, patient, and family members, as well as other required patient management activities is 50 minutes Please note the above document was generated using voice recognition software. It may contain grammatical, syntax or spelling errors. Any formal questions or concerns about the content, text or information contained within the body of this dictation should be directly addressed to the provider for clarification Admission and Anticipated Discharge Date Admission Date: May 17, 2025 Subjective Patient seen and examined at bedside. She reports that she is feeling better compared to previous day. Had 2 bowel movement in last 24 hours. Planning on clear liquid diet today. Review of Systems Review of Systems: All systems reviewed & are unremarkable except as noted in Subjective Physical Exam Physical Exam: Constitutional: WD/WN, vitals as above, NAD, sitting up in bed, pleasant, conversing easily Respiratory: normal respiratory effort, lungs clear to auscultation, no wheeze, rales, rhonchi. Normal insp/exp effort, no accessory muscle use Cardiovascular: RRR, no murmur, no edema Vessels: no JVD or carotid bruit Chest: normal inspection of chest Abdomen: soft, non-tender Musculoskeletal: no cyanosis or clubbing, extremities motor strength 5/5 Skin: no rashes, warm and dry normal turgor Neurologic: PERRL, EOMI, accommodation nl, no face palsy, no dysarthria CN's II- XI intact bilaterally and moves all extremities Psychiatric: A+Ox3, euthymic affect Results & Data Results & Data Vital Signs (Past 12 Hours) Vital Signs Temp Pulse Resp BP Pulse Ox O2 Del Method O2 Flow Rate 05/20/25 11:08 37.0 C 93 H 22 114/69 94 Room Air 05/20/25 08:08 36.7 C 80 20 137/74 93 Nasal Cannula 2 05/20/25 03:59 36.7 C 74 20 159/78 H 95 Nasal Cannula 2
[2025-05-20 11:58] LABS: ANTI-Xa, UFH(UnfractionatedHep 0.12 IU/ml (0.3-0.7)
[2025-05-20 20:12] VITALS: RESP 18
[2025-05-20] MEDS: METOPROLOL TARTRATE 25 MG TAB PO SCH (20:55)
[2025-05-20] MEDS: DABIGATRAN ETEXILATE 75 MG CAP PO SCH (20:57)
[2025-05-21] MEDS: ACETAMINOPHEN 325 MG TAB PO PRN (01:46)
[2025-05-21 08:13] LABS: Hematocrit (blood only) 34.4 % (37.0-47.0); Hemoglobin 11.1 g/dl (12.0-16.0); Immature Granulocytes # (auto) 0.02 K/uL (0.01-0.20); Immature Granulocytes % (auto) 0.2 %; Mean Corpuscular Hemoglobin 30.8 pg (25.0-34.0); Mean Corpuscular Volume 95.6 fL (80.0-100.0); Platelet Count 327 K/uL (130-400); RDW Standard Deviation 53.1 fL (36.4-46.3); Red Blood Count 3.60 M/uL (4.20-5.40); White Blood Count 9.07 K/ul (4.8-10.8)
[2025-05-21 08:29] LABS: Anion Gap 6.0 (3-11); Blood Urea Nitrogen 7.0 mg/dl (6-23); Calcium 9.2 mg/dl (8.6-10.3); Carbon Dioxide 29.0 mmol/L (21-32); Chloride 107.0 mmol/L (98-107); Creatinine Clr Calc Pharmacy 117.2 ml/min; Glucose 104.0 mg/dl (70-99(Fasting)); Potassium 4.5 mmol/L (3.5-5.1); Sodium 142.0 mmol/L (136-145)
[2025-05-21 08:35] LABS: ANTI-Xa, UFH(UnfractionatedHep < 0.10 IU/ml (0.3-0.7)
[2025-05-21] MEDS: FUROSEMIDE 20 MG TAB PO SCH (08:50)
--- NOTE | 2025-05-21 10:18 | Surgery Progress Note ---
Date of Service May 21, 2025 Assessment & Plan (1) SBO (small bowel obstruction): (2) Obesity, morbid, BMI 50 or higher: Plan: 70 yo female, morbidly obese with large ventral hernia containing small bowel with SBO on presentation. KUB on 05/19/25 showing nonobstructive bowel gas pattern but constipation. Could have been more delayed motility transient SBO findings due to Mounjaro use. Tolerating clear liquids, small bowel movement after suppository. No acute surgical intervention required at this time. Would need advanced hernia specialist for ventral hernia repair given BMI and large hernia. (follows with hernia surgeon at [place]) Continue medical management. can advance diet as tolerated. Our services signing off, call with questions/concerns. Discussed with Dr. Clay who agrees with above. Admission and Anticipated Discharge Date Admission Date: May 17, 2025 Subjective feeling good tolerating clears liquid bowel movement in middle of night not passing much gas since full liquids ordered for lunch twinge of pain in mid to left abdomen but denies persistent abdominal pain Physical Exam Constitutional: WD/WN, vitals as above + morbidly obese, cooperative and comfortable; no acute distress and not ill appearing Gastrointestinal (Abdomen): Inspection/Auscultation: abdomen normal to inspection; abdomen not distended Percussion/Palpation: abdomen soft; abdomen nontender, no guarding, abdomen not rigid and abdomen not firm Large ventral hernia in pannus Skin: no rashes, warm and dry Psychiatric: Orientation: alert and oriented x 3 Results & Data Vital Signs (Past 12 Hours) Vital Signs Temp Pulse Pulse Resp BP BP Pulse Ox 05/21/25 08:38 36.7 C 67 18 134/74 92 05/21/25 02:16 36.4 C L 66 18 141/70 H 94 05/20/25 23:22 66 05/20/25 22:50 36.7 C 63 18 125/66 95 O2 Del Method O2 Flow Rate 05/21/25 08:38 Room Air 05/21/25 02:16 Nasal Cannula 2 05/20/25 23:22 05/20/25 22:50 Room Air Laboratory Results 05/21/25 05/21/25 05/20/25 Range/Units 07:59 07:45 20:05 WBC 9.07 (4.8-10.8) K/ul RBC 3.60 L (4.20-5.40) M/uL Hgb 11.1 L (12.0-16.0) g/dl Hct 34.4 L (37.0-47.0) % MCV 95.6 (80.0-100.0) fL MCH 30.8 (25.0-34.0) pg MCHC 32.3 (32.0-36.0) g/dL RDW Std Deviation 53.1 H (36.4-46.3) fL RDW Coeff of Faraz 15.0 H (11.5-14.5) % Plt Count 327 (130-400) K/uL MPV 10.5 (9.4-12.4) fL Immature Gran % (Auto) 0.2 % Neut % (Auto) 65.1 % Lymph % (Auto) 21.4 % [place] % (Auto) 8.3 % Eos % (Auto) 4.1 % Baso % (Auto) 0.9 % Neut # (Auto) 5.91 (1.40-6.50) K/uL Lymph # (Auto) 1.94 (1.20-3.40) K/uL [place] # (Auto) 0.75 H (0.11-0.59) K/uL Eos # (Auto) 0.37 (0.00-0.50) K/uL Baso # (Auto) 0.08 (0.00-0.20) K/uL Immature Gran # (Auto) 0.02 (0.01-0.20) K/uL Heparin Anti-Xa, Unfract < 0.10 L (0.3-0.7) IU/ml Sodium 142 (136-145) mmol/L Potassium 4.5 (3.5-5.1) mmol/L Chloride 107 (98-107) mmol/L Carbon Dioxide 29 (21-32) mmol/L Anion Gap 6 (3-11) BUN 7 (6-23) mg/dl Creatinine 0.62 (0.6-1.2) mg/dl Est Cr Clr Drug Dosing 117.2 ml/min eGFR 95.74 BUN/Creatinine Ratio 11.3 (10-20) Glucose 104 H (70-99(Fasting)) mg/dl POC Glucose 115 H 124 H (70-99) mg/dl Calcium 9.2 (8.6-10.3) mg/dl 05/20/25 05/20/25 05/20/25 Range/Units 16:43 11:42 11:17 WBC (4.8-10.8) K/ul RBC (4.20-5.40) M/uL Hgb (12.0-16.0) g/dl Hct (37.0-47.0) % MCV (80.0-100.0) fL MCH (25.0-34.0) pg MCHC (32.0-36.0) g/dL RDW Std Deviation (36.4-46.3) fL RDW Coeff of Faraz (11.5-14.5) % Plt Count (130-400) K/uL MPV (9.4-12.4) fL Immature Gran % (Auto) % Neut % (Auto) % Lymph % (Auto) % [place] % (Auto) % Eos % (Auto) % Baso % (Auto) % Neut # (Auto) (1.40-6.50) K/uL Lymph # (Auto) (1.20-3.40) K/uL [place] # (Auto) (0.11-0.59) K/uL Eos # (Auto) (0.00-0.50) K/uL Baso # (Auto) (0.00-0.20) K/uL Immature Gran # (Auto) (0.01-0.20) K/uL Heparin Anti-Xa, Unfract 0.12 L (0.3-0.7) IU/ml Sodium (136-145) mmol/L Potassium (3.5-5.1) mmol/L Chloride (98-107) mmol/L Carbon Dioxide (21-32) mmol/L Anion Gap (3-11) BUN (6-23) mg/dl Creatinine (0.6-1.2) mg/dl Est Cr Clr Drug Dosing ml/min eGFR BUN/Creatinine Ratio (10-20) Glucose (70-99(Fasting)) mg/dl POC Glucose 105 H 130 H (70-99) mg/dl Calcium (8.6-10.3) mg/dl
--- NOTE | 2025-05-21 10:43 | Hospitalist Progress Note ---
Date of Service May 21, 2025 Assessment & Plan (1) SBO (small bowel obstruction): Plan: Recurrent SBO History of ventral hernia Patient presents with nausea and abdominal distention; history of ventral hernia. CT abdomen pelvis on admission suggest high-grade small bowel obstruction Leukocytosis present on admission; improved KUB on 05/19 shows constipation; no SBO NG tube removed on 05/19 after successful clamping. 2 bowel movements on 05/19; started on clear liquid diet; Advance to full liquid diet today. Heparin drip switch over to Pradaxa Patient reports that she has follow-up appointment with hernia surgeon on May 23, 2025. Possible DC in a.m. if patient continues to tolerate advancement in diet. #Chronic Atrial Fibrillation Pradaxa resumed. Cardizem and metoprolol restarted as well. Monitor on telemetry #Class III Obesity -hold home mounjaro-discontinue at discharge given multiple recurrence of SBO #Hypothyroidism -continue on levothyroxine #DM Type 2 -continue home lantus, -SSI -pharmacy consult given high doses of insulin #COPD -continue home inhalers #Gout -on allopurinol-continue #NAVI -on Bipap at home -on at home, ordered for here DVT prophylaxis-Pradaxa full code Time spent evaluating patient, direct bedside care, chart review, placing orders, interpretation of diagnostic studies, discussion with consultants, patient, and family members, as well as other required patient management activities is 50 minutes Please note the above document was generated using voice recognition software. It may contain grammatical, syntax or spelling errors. Any formal questions or concerns about the content, text or information contained within the body of this dictation should be directly addressed to the provider for clarification Admission and Anticipated Discharge Date Admission Date: May 17, 2025 Subjective Patient seen and examined at bedside. She reports that she is feeling better; had large bowel movement overnight. Tolerating clear liquid diet without any issues. Ambulating with the help of walker. Review of Systems Review of Systems: All systems reviewed & are unremarkable except as noted in Subjective Physical Exam Physical Exam: Constitutional: WD/WN, vitals as above, NAD, sitting up in bed, pleasant, conversing easily Respiratory: normal respiratory effort, lungs clear to auscultation, no wheeze, rales, rhonchi. Normal insp/exp effort, no accessory muscle use Cardiovascular: RRR, no murmur, no edema Vessels: no JVD or carotid bruit Chest: normal inspection of chest Abdomen: soft, non-tender Musculoskeletal: no cyanosis or clubbing, extremities motor strength 5/5 Skin: no rashes, warm and dry normal turgor Neurologic: PERRL, EOMI, accommodation nl, no face palsy, no dysarthria CN's II- XI intact bilaterally and moves all extremities Psychiatric: A+Ox3, euthymic affect Results & Data Results & Data Vital Signs (Past 12 Hours) Vital Signs Temp Pulse Pulse Resp BP BP Pulse Ox 05/21/25 08:38 36.7 C 67 18 134/74 92 05/21/25 02:16 36.4 C L 66 18 141/70 H 94 05/20/25 23:22 66 05/20/25 22:50 36.7 C 63 18 125/66 95 O2 Del Method O2 Flow Rate 05/21/25 08:38 Room Air 05/21/25 02:16 Nasal Cannula 2 05/20/25 23:22 05/20/25 22:50 Room Air
[2025-05-22 07:26] LABS: Hematocrit (blood only) 34.0 % (37.0-47.0); Hemoglobin 10.6 g/dl (12.0-16.0); Immature Granulocytes # (auto) 0.03 K/uL (0.01-0.20); Immature Granulocytes % (auto) 0.3 %; Mean Corpuscular Hemoglobin 29.9 pg (25.0-34.0); Mean Corpuscular Volume 96.0 fL (80.0-100.0); Platelet Count 318 K/uL (130-400); RDW Standard Deviation 53.1 fL (36.4-46.3); Red Blood Count 3.54 M/uL (4.20-5.40); White Blood Count 9.28 K/ul (4.8-10.8)
[2025-05-22 07:28] LABS: Anion Gap 6.0 (3-11); Blood Urea Nitrogen 8.0 mg/dl (6-23); Calcium 8.9 mg/dl (8.6-10.3); Carbon Dioxide 29.0 mmol/L (21-32); Chloride 106.0 mmol/L (98-107); Creatinine Clr Calc Pharmacy 106.7 ml/min; Glucose 101.0 mg/dl (70-99(Fasting)); Potassium 3.9 mmol/L (3.5-5.1); Sodium 141.0 mmol/L (136-145)
--- NOTE | 2025-05-22 12:30 | XRay Report ---
KUB HISTORY: f/u sbo, constipation COMPARISON STUDY: 05/19/2025 FINDINGS: Prior nasogastric tube is been removed. There is grossly stable gaseous distention of the s tomach. There are a few mildly distended small bowel loops measuring up to 4 cm diameter. No colonic distention seen. There is mild retained stool. IMPRESSION: Mild gastric and small bowel distention, grossly stable. ACT 112: Negative or not required by law. The above report was generated using voice recognition software. It may contain grammatical, syntax o r spelling errors. Electronically signed by: Oskar Kaufman M.D. 05/22/2025 12:29 PM
[2025-05-22 15:13] VITALS: PULSE 64; TEMP 97.9; O2SAT 96
--- NOTE | 2025-05-22 15:14 | Discharge Summary ---
Date of Service May 22, 2025 Admission HPI Per Admitting Provider History obtained from patient, family, and records. Medical history significant for A-fib on Pradaxa, hypertension, COPD, NAVI on BiPAP, DM2 insulin requiring, hypothyroidism, ovarian cancer status post surgery, GERD, chronic anemia (baseline hemoglobin 9-10), anxiety/mood disorder, recurrent bowel obstruction, ventral hernia, morbid obesity, past tobacco abuse. Monthly confinements since March,. Recent confinement last week for left knee/thigh hematoma secondary to mechanical fall secondary to ambulatory dysfunction, LLE cellulitis and UTI. Patient discharged home on Keflex course. 2 days history of achy abdominal pain going to the chest and back with nausea symptoms. No emesis, no fever, no chills. Bowel movements okay. NGT inserted at the ER for bowel obstruction. Highest SBP 170s noted at the ER. Epistaxis noted during NGT insertion. 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 Admission Exam Per Admitting Provider GENERAL: Pleasant, morbidly obese, no respiratory distress SKIN: Pallor, warm HEENT: Pale palpebral conjunctivae, no ptosis, dry buccal mucosa, NGT in place NECK : Supple, short neck, no tenderness CHEST : Decreased breath sounds, no tenderness HEART : Irregular, no obvious murmurs ABDOMEN: Some distention, no overt tenderness EXTREMITIES : Minimal LE swelling, no LE tenderness, no other conspicuous deformities noted NEUROLOGIC : Coherent, no facial asymmetry, no other gross focality Principal Diagnosis Recurrent SBO History of ventral hernia Discharge Exam Constitutional: WD/WN, vitals as above, NAD, sitting up in bed, pleasant, conversing easily Respiratory: normal respiratory effort, lungs clear to auscultation, no wheeze, rales, rhonchi. Normal insp/exp effort, no accessory muscle use Cardiovascular: RRR, no murmur, no edema Vessels: no JVD or carotid bruit Chest: normal inspection of chest Abdomen: soft, non-tender Musculoskeletal: no cyanosis or clubbing, extremities motor strength 5/5 Skin: no rashes, warm and dry normal turgor Neurologic: PERRL, EOMI, accommodation nl, no face palsy, no dysarthria CN's II- XI intact bilaterally and moves all extremities Psychiatric: A+Ox3, euthymic affect Discharge Data Allergies Allergy/AdvReac Type Severity Reaction Status Date / Time nickel Allergy Mild Redness of Verified 05/17/25 01:48 Skin GIN Inhibitors Allergy Unknown Unknown Verified 05/17/25 01:48 cat dander Allergy Unknown Unknown Verified 05/17/25 01:48 cockroach Allergy Unknown Unknown Verified 05/17/25 01:48 house dust Allergy Unknown Unknown Verified 05/17/25 01:48 pioglitazone Allergy Unknown Unknown Verified 05/17/25 01:48 tree and shrub pollen Allergy Unknown Unknown Verified 05/17/25 01:48 empagliflozin AdvReac Intermediate CAUSED Verified 05/17/25 01:48 [From Jardiance] UTI'S codeine AdvReac Mild Nausea Verified 05/17/25 01:48 hydrocodone AdvReac Mild Nausea Verified 05/17/25 01:48 meperidine AdvReac Mild Nausea Verified 05/17/25 01:48 morphine AdvReac Mild Nausea Verified 05/17/25 01:48 Consultations 05/17/25 01:16 Consult General Surgery Routine ED Decision to Admit Stat Ordered Studies 05/16/25 21:32 CT Abd and Pelvis [CT abd pelvis IV con only] Stat Hospital Course (1) SBO (small bowel obstruction): Recurrent SBO History of ventral hernia Patient presents with nausea and abdominal distention; history of ventral hernia. CT abdomen pelvis on admission suggest high-grade small bowel obstruction Leukocytosis present on admission; improved KUB on 05/19 shows constipation; no SBO NG tube removed on 05/19 after successful clamping. 2 bowel movements on 05/19; started on clear liquid diet; then advanced to full liquid diet. Heparin drip switch over to Pradaxa Patient reports that she has follow-up appointment with hernia surgeon towards end of May,. Pt tolerating diet well, reports moving another BM overnight, denies abdominal pain after eating. Pt to maintain low fiber diet on dc for next 7-10 days, pt to f/u w/ her gen sx on dc. #Chronic Atrial Fibrillation c/w home Pradaxa. Cardizem and metoprolol restarted as well. Monitor on telemetry #Class III Obesity -hold home mounjaro-discontinued at discharge given multiple recurrence of SBO #Hypothyroidism -continue on levothyroxine #DM Type 2 -continue home lantus, -SSI -pharmacy consult given high doses of insulin #COPD -continue home inhalers #Gout -on allopurinol-continue #NAVI -on Bipap at home -on at home, ordered for here DVT prophylaxis-Pradaxa full code Patient is being discharged home with home health with following instructions at the point of discharge: Follow-up with your primary care physician within a week time and likely you will need labs CBC/CMP/magnesium/phosphorus. Continue with low fiber diet for next 7-10 days. Follow-up with your appointment with hernia surgeon as scheduled prior. Recommend that you stop your Mounjaro given recurrent small bowel obstruction until you have further discussion with your outpatient provider. Take your medications as prescribed. Please make sure that you are able to get your medications today by calling your pharmacy before you leave the hospital so that your treatment continuity is not broken. Please note the above document was generated using voice recognition software. It may contain grammatical, syntax or spelling errors. Any formal questions or concerns about the content, text or information contained within the body of this dictation should be directly addressed to the provider for clarification Home Health Attestation I certify that this patient is under my care and that I, or a physicians administrative assistant office manager working with me, had a face to-face encounter that meets the home health [id number] encounter requirements with this patient. The encounter with the patient was in whole, or in part, for the following medical condition, which is the primary reason for home health care (list medical condition): I certify that, based on my findings, the following services are medically necessary home health services: My clinical findings support the need for the above services because: OT Assess ADL Status and Restore Function w ADLs PT Assessment for Endurance / Balance / Strength PT Eval for Safety and Mobility PT Eval for Safety, Gait Training, Assistive Devices PT Gait and Balance Training, Strengthening and Safety Safety Skilled Nsg Assessment Skilled Nsg Instruction New Medications Skilled Nsg Assess Pt Illness, Disease and Sx Monitoring S/S to Report to Provider Further, I certify that my clinical findings support that this patient is homebound (i.e. absences from home require considerable and taxing effort and are for medical reasons or nondenominational services or infrequently or of short duration when for other reasons) because: Certification for Home Health Services: Based on the above findings, I certify that this patient is confined to the home and needs intermittent nursing home care, physical therapy and/or speech therapy or continues to need occupational therapy. The patient is under my care, and I have initiated the establishment of the plan of care. This patient will be followed by a physician who will periodically review the plan of care. Total Time Total Time Spent Total Time Spent (In Minutes): 40 Discharge Plan Discharge Items Patient Disposition: Home - Home Health Services Reason For Visit: HTN, URG, SBO Discharge Diagnosis: Recurrent SBO History of ventral hernia Condition on Discharge: Fair Activity: Resume your previous activity Non-emergency contact: Primary Care Provider Call non-emergency contact if: you have any medication questions Follow-up/Referrals: Mohsen Vazquez MD [Primary Care Provider] - (Date & Time 05/24/2025 11:00 AM Provider: Mohsen Vazquez MD [facility] ) Diet: Low Fiber Addtl Attending Provider Instructions: Follow-up with your primary care physician within a week time and likely you will need labs CBC/CMP/magnesium/phosphorus. Continue with low fiber diet for next 7-10 days. Follow-up with your appointment with hernia surgeon as scheduled prior. Recommend that you stop your Mounjaro given recurrent small bowel obstruction until you have further discussion with your outpatient provider. Take your medications as prescribed. Please make sure that you are able to get your medications today by calling your pharmacy before you leave the hospital so that your treatment continuity is not broken. Pending Studies at Discharge: Yes Stand-Alone Forms: My [facility] [employer], Smoking Cessation Medications and DC Order Prescriptions: Continued (DME) pen needle, diabetic [Clickfine Pen Needle] 31 gauge x 5/16" needle See Rx Instructions .Route Qty: 500 3RF Rx Instructions: Use 5 per day gabapentin 600 mg tablet 600 mg PO TID Qty: 270 1RF diltiazem HCl 360 mg capsule,extended release 24 hr 360 mg PO DAILY insulin lispro [Humalog KwikPen Insulin] 100 unit/mL insulin pen 15 unit subcut TIDM (DME) Dexcom G6 Sensor Device See Rx Instructions .ROUTE Rx Instructions: As directed atorvastatin 40 mg Tablet 40 mg PO HS allopurinol 100 mg Tablet 100 mg PO BID gemfibrozil 600 mg Tablet 600 mg PO BID mometasone 50 mcg/actuation [place],Non-Aerosol 1 - 2 spray INTRANASAL QAM levothyroxine 112 mcg Tablet 112 mcg PO DAILYBB diclofenac sodium 1 % gel 2 g topical QID PRN (Reason: Pain) dabigatran etexilate [Pradaxa] 150 mg Capsule 150 mg PO BID Qty: 14 0RF famotidine [Pepcid] 20 mg tablet 20 mg PO BID coenzyme Q10 200 mg Capsule 200 mg PO DAILY metoprolol tartrate 25 mg Tablet 37.5 mg PO BID Qty: 90 0RF Combivent Respimat 20-100 mcg/actuation mist 1 puff INHALATION QID albuterol sulfate 2.5 mg /3 mL (0.083 %) Solution For Nebulization 2.5 mg INHALATION Q4H PRN (Reason: Wheezing) furosemide [Lasix] 20 mg Tablet 20 mg PO QAM albuterol sulfate 90 mcg/actuation Hfa Aerosol Inhaler 2 puff INHALATION Q4H PRN (Reason: Wheezing) cholecalciferol (vitamin D3) [Vitamin D3] 25 mcg (1,000 unit) Capsule 25 mcg PO DAILY magnesium glycinate 120 mg Capsule 240 mg PO QAM insulin glargine [Lantus Solostar U-100 Insulin] 100 unit/mL (3 mL) insulin pen 40 unit SUBCUT BID Advanced Probiotic 625 mg (10 billion cell) Capsule 1 cap PO DAILY 7 Days Qty: 7 0RF oxycodone 5 mg tablet 5 mg PO Q8H PRN (Reason: pain (scale score 7-10)) Qty: 15 0RF Discontinued Mounjaro 7.5 mg/0.5 mL pen injector 7.5 mg SUBCUT WK Rx Instructions: TAKE THIS MED EVERY TUESDAY cephalexin 500 mg capsule 500 mg PO Q6H Rx Instructions: BEGIN 05/13/25 X 4 DAYS Discharge Orders: Discharge Order (Routine); Ordered 05/22/25 Ordered By: Floresita Skelton Admission Data Admit Date/Time: 05/17/25 01:56 Attending Provider: Floresita Skelton Admit Provider: Duarte Dempsey Primary Care Provider: Mohsen Vazquez Other Providers: Duarte Dempsey; Oskar Vieyra; [facility]
[2025-05-22 15:35] VITALS: BP 138/67
[2025-05-22] MEDS ORDERED: FAMOTIDINE 20 MG TAB PO SCH (21:00)
== END 2025-05-22 16:54 | disposition home health service (06) | DRG 394 ==
LOC: ED 20:45 → 2N 05-17 01:56 → SUATTDRO 05-17 01:56 → 2N 05-17 03:11